=== PATIENT | female | born 1955 | race Caucasian/White ===

== ENCOUNTER 2016-10-29 11:54 | Emergency (ER) | payer OTHER ==
[~2016-10-29] VITALS: Ht 172.7 cm; Wt 87.5 kg
[~2016-10-29 11:54] MED LIST: ACYC5CRE2 TP; ALPR1TAB2 PO; ASPI325T8 PO; ATOR20TA58 PO; CEFD300C PO; CHOL100013 PO; DESV100T PO; DESV50TA PO; DICY10CA53 PO; ESTR1PAT27 TD; FLUT1DIS5 IH; FURO-68 PO; GABA600T2 PO; HYDR1TAB26 PO; LEVO137T3 PO; MAGN400T3 PO; MUPI15CR TP; OMEG500C3 PO; OMEP20TA8 PO; OXYC-323 PO; OXYC5TAB88 PO; POTA20PA PO; PROAIR HFA8.5 GM IH; SIMV20TA3 PO; SOLI5TAB2 PO; TIZA4TAB PO; VITA400C11 PO
[2016-10-29 12:35] LABS: BASO # 0.1 x10^3/uL (0.0-0.2); BASO % 1 % (0-3); EOS % 0 % (0-3); HEMATOCRIT 34.1 % (36.0-47.0); LYMPH # 1.7 x10^3/uL (1.0-4.8); LYMPH % 8 % (24-48); MEAN CORPUSCULAR HEMOGLOBIN 27 pg (25-35); MEAN CORPUSCULAR HGB CONC 32 g/dL (31-37); MEAN CORPUSCULAR VOLUME 83 fL (79-100); MONO % 4 % (0-9); NEUT % 87 % (31-73); PLATELET COUNT 430 x10^3/uL (140-400); RED BLOOD COUNT 4.08 x10^6/uL (3.50-5.40); RED CELL DISTRIBUTION WIDTH 14.4 % (11.5-14.5); WHITE BLOOD COUNT 21.7 x10^3/uL (4.0-11.0)
[2016-10-29] MEDS ORDERED: KETOROLAC TROMETHAMINE 30 MG/ML INJ. IV ONE (12:45)
[2016-10-29] MEDS ORDERED: oxyCODONE/APAP 5/325 1 TAB TABLET PO ONE (12:45)
[2016-10-29] MEDS ORDERED: ALBUTEROL SULFATE 2.5 MG/3 ML NEBU. NEB ONE (12:45)
[2016-10-29] MEDS ORDERED: IPRATRPIUM/ALBUTEROL 0.5/2.5MG 3 ML NEBU. NEB ONE (12:45)
[2016-10-29] MEDS ORDERED: PROMETHAZINE 25 MG in IV NORMAL SALINE 50ML 50 ML IV ONE (12:45)
[2016-10-29 12:47] LABS: CALCIUM 8.5 mg/dL (8.5-10.1); CREATININE 0.8 mg/dL (0.6-1.0); GFR 73.4; POTASSIUM 4.5 mmol/L (3.5-5.1)
--- NOTE | 2016-10-29 12:53 | PHYS DOC ---
Past Medical History Past Medical History: Anxiety, Bronchitis, CHF, COPD, Depression, Hypertension , [place], Renal Disease, Stroke, Other Additional Past Medical Histor: "C.diffRotted colon out.I have an ileostomy. "Indwelling smith since 08-25-14 Past Surgical History: Appendectomy, Cholecystectomy, Hysterectomy, Knee Replacement, Other Additional Past Surgical Histo: Back surgery, Shouldr surgery, Cardiac stent, COLON\\RECTUM REMVD Alcohol Use: None Drug Use: None Adult General Chief Complaint Chief Complaint: FLU SYMPTOM HPI HPI Patient is a 61 year old female presenting to the emergency department for evaluation of multiple complaints including cough cold congestion fevers chills shortness of breath chest tightness inability to ambulate myalgias and arthralgias. Patient says that she has greenish productive cough and says that this has been going on for approximately one week and she was placed on prednisone and amoxicillin by her primary care provider last week. She is feeling worse and that she cannot breathe. She is in poor health overall as she has chronic pain along with CHF COPD him on her chronic conditions. She is nontoxic-appearing and in no obvious distress with normal vital signs. Review of Systems Review of Systems Constitutional: + fever, chills [] Eyes: Denies change in visual acuity, redness, or eye pain [] HENT: + nasal congestion or sore throat [] Respiratory: + cough, shortness of breath [] Cardiovascular: + CP GI: Denies abdominal pain, nausea, vomiting, bloody stools or diarrhea [] : Denies dysuria or hematuria [] Musculoskeletal: Diffuse myalgias and arthralgias Integument: Denies rash or skin lesions [] Neurologic: + headache. No focal weakness or sensory changes [] Current Medications Current Medications Current Medications Medications (Trade) Dose Ordered Sig/Joel Start Time Stop Time Status Last Admin Dose Admin Albuterol Sulfate (Ventolin Neb Soln) 5 mg 1X ONCE 10/29/16 12:45 10/29/16 12:46 DC 10/29/16 12:56 5 MG Albuterol/ Ipratropium (Duoneb) 3 ml 1X ONCE 10/29/16 12:45 10/29/16 12:46 DC 10/29/16 12:56 3 ML Hydromorphone HCl (Dilaudid) 1 mg 1X ONCE 10/29/16 13:45 10/29/16 13:46 DC 10/29/16 13:54 1 MG Ketorolac Tromethamine (Toradol) 15 mg 1X ONCE 10/29/16 12:45 10/29/16 12:46 DC 10/29/16 12:43 15 MG Oxycodone/ Acetaminophen (Percocet 5/325) 2 tab 1X ONCE 10/29/16 12:45 10/29/16 12:46 DC 10/29/16 12:42 2 TAB Promethazine HCl 25 mg/Sodium Chloride 51 ml @ 101 mls/hr 1X ONCE 10/29/16 12:45 10/29/16 13:15 DC 10/29/16 13:29 101 MLS/HR Sodium Chloride 500 ml @ 500 mls/hr 1X ONCE 10/29/16 13:30 10/29/16 14:29 10/29/16 13:34 500 MLS/HR Allergies Allergies Allergies Coded Allergies Type Severity Reaction Last Updated Verified phenytoin sodium Allergy Intermediate 12/31/14 Yes phenytoin sodium extended Allergy Intermediate 12/31/14 Yes doxycycline Adverse Reaction Intermediate GI UPSET 12/31/14 Yes pregabalin Adverse Reaction Intermediate NIGHTMARES 12/31/14 Yes Physical Exam Physical Exam Constitutional: Well developed, well nourished, no acute distress, non-toxic appearance. [] HENT: Normocephalic, atraumatic, bilateral external ears normal, oropharynx moist, no oral exudates, nose normal. [] Eyes: PERRLA, EOMI, conjunctiva normal, no discharge. [] Neck: Normal range of motion, no tenderness, supple, no stridor. [] Cardiovascular:Heart rate regular rhythm, no murmur [] Lungs & Thorax: Bilateral breath sounds diminished with rales and wheezes in all lung rodriguez. Abdomen: Bowel sounds normal, soft, no tenderness, no masses, no pulsatile masses. [] Skin: Warm, dry, no erythema, no rash. [] Back: No tenderness, no CVA tenderness. [] Extremities: No tenderness, no cyanosis, no clubbing, ROM intact, no edema. [] Neurologic: Alert and oriented X 3, normal motor function, normal sensory function, no focal deficits noted. [] Current Patient Data Vital Signs Vital Signs Date Time Temp Pulse Resp B/P (MAP) Pulse Ox O2 Delivery O2 Flow Rate FiO2 10/29/16 13:54 22 5 10/29/16 12:58 Room Air 10/29/16 12:53 90 136/74 (94) 10/29/16 11:54 98.4 98.4 Lab Values Laboratory Tests Test 10/29/16 12:22 White Blood Count 21.7 x10^3/uL (4.0-11.0) H Red Blood Count 4.08 x10^6/uL (3.50-5.40) Hemoglobin 11.0 g/dL (12.0-15.5) L Hematocrit 34.1 % (36.0-47.0) L Mean Corpuscular Volume 83 fL (79-100) Mean Corpuscular Hemoglobin 27 pg (25-35) Mean Corpuscular Hemoglobin Concent 32 g/dL (31-37) Red Cell Distribution Width 14.4 % (11.5-14.5) Platelet Count 430 x10^3/uL (140-400) H Neutrophils (%) (Auto) 87 % (31-73) H Lymphocytes (%) (Auto) 8 % (24-48) L Monocytes (%) (Auto) 4 % (0-9) Eosinophils (%) (Auto) 0 % (0-3) Basophils (%) (Auto) 1 % (0-3) Neutrophils # (Auto) 18.9 x10^3uL (1.8-7.7) H Lymphocytes # (Auto) 1.7 x10^3/uL (1.0-4.8) Monocytes # (Auto) 1.0 x10^3/uL (0.0-1.1) Eosinophils # (Auto) 0.0 x10^3/uL (0.0-0.7) Basophils # (Auto) 0.1 x10^3/uL (0.0-0.2) Segmented Neutrophils % 89 % (35-66) H Band Neutrophils % 2 % (0-9) Lymphocytes % 5 % (24-48) L Monocytes % 4 % (0-10) Platelet Estimate Adequate (ADEQUATE) Sodium Level 132 mmol/L (136-145) L Potassium Level 4.5 mmol/L (3.5-5.1) Chloride Level 96 mmol/L (98-107) L Carbon Dioxide Level 25 mmol/L (21-32) Anion Gap 11 (6-14) Blood Urea Nitrogen 9 mg/dL (7-20) Creatinine 0.8 mg/dL (0.6-1.0) Estimated GFR (Cockcroft-Gault) 73.4 BUN/Creatinine Ratio 11 (6-20) Glucose Level 128 mg/dL (70-99) H Calcium Level 8.5 mg/dL (8.5-10.1) Magnesium Level 1.9 mg/dL (1.8-2.4) Total Bilirubin 0.1 mg/dL (0.2-1.0) L Aspartate Amino Transferase (AST) 8 U/L (15-37) L Alanine Aminotransferase (ALT) 19 U/L (14-59) Alkaline Phosphatase 153 U/L (46-116) H Creatine Kinase 49 U/L (26-192) Troponin I Quantitative < 0.017 ng/mL (0.000-0.055) PV-Ctq-Y-Type Natriuretic Peptide 259 pg/mL (0-124) H Total Protein 7.7 g/dL (6.4-8.2) Albumin 3.8 g/dL (3.4-5.0) Albumin/Globulin Ratio 1.0 (1.0-1.7) Lipase 229 U/L (73-393) Laboratory Tests 10/29/16 12:22 Laboratory Tests 10/29/16 12:22 EKG EKG Sinus rhythm at 90 bpm with leftward axis no obvious ST elevation or depression and normal T waves. Radiology/Procedures Radiology/Procedures Chest radiograph 05/29/2016 at 1255 hours Indication: Cough and trouble breathing Comparison: Chest radiograph 11/17/2014 Technique: Single portable frontal view of the chest is provided. Findings: Cardiomediastinal silhouette is within normal limits. No pleural effusions, pulmonary vascular congestion or pneumothorax. The lungs are clear. Rotator cuff tacks are noted in the left shoulder. Impression: No acute cardiopulmonary process. DICTATED and SIGNED BY: MARIA D GONZALEZ MD DATE: 10/29/16 1424 Course & Med Decision Making Course & Med Decision Making Patient seems to have a viral syndrome with diffuse myalgias arthralgias greenish productive cough fevers chills. We'll treat symptoms check labs and reassess. Patient's workup is rather unremarkable except she has leukocytosis likely from the steroid she has been on for the past week. Otherwise her workup is normal. I gave her a breathing treatment and her lungs improved and she continued to have a normal O2 sat in the mid 90s. She was asking for something stronger for pain so I gave her Dilaudid and she has for second dose so seems that her issues more pain control at this time. I spoke to her primary care provider Dr. Leon about patient's presentation vital signs and workup and she stated that patient meets no inpatient criteria and recommended discharge with a change in the steroid taper and can try a different antibiotic. Patient aware and agreeable with plan for discharge and verbalized understanding of the need for short-term follow-up and strict ER return precautions discussed including worsening pain fevers vomiting or other general concerns. Dragon Disclaimer Dragon Disclaimer This electronic medical record was generated, in whole or in part, using a voice recognition dictation system. Departure Departure Impression: Primary Impression: Bronchitis Additional Impression: COPD with exacerbation Disposition: HOME, SELF-CARE Condition: GOOD Referrals: NICOLAS LEON MD (PCP) Patient Instructions: Acute Bronchitis Additional Instructions: TRY TAKING IBUPROFEN OTC FOR YOUR BODY ACHES. OTC NASONEX WOULD HELP YOUR SINUS CONGESTION AND COUGH. STOP YOUR PREDNISONE AND AMOXICILLIN AND TAKE THE MEDICATIONS I PRESCRIBE. THANK YOU! Scripts Prednisone (PREDNISONE) 10 Mg Tablet 10 MG PO DAILY, #36 TAB TAKE 60MG FOR 3 DAYS THEN 40MG FOR 3 DAYS THEN 20MG FOR 3 DAYS Prov: LORA ANTONIO DO 10/29/16 Azithromycin (ZITHROMAX PACKET) 1 Gm Packet 1 PACKET PO ONCE, #1 PACKET Prov: LORA ANTONIO DO 10/29/16 Problem Qualifiers LORA ANTONIO DO Oct 29, 2016 12:53
[2016-10-29 12:54] LABS: ALBUMIN 3.8 g/dL (3.4-5.0); MAGNESIUM 1.9 mg/dL (1.8-2.4); TOTAL BILIRUBIN 0.1 mg/dL (0.2-1.0); TOTAL PROTEIN 7.7 g/dL (6.4-8.2)
--- NOTE | 2016-10-29 12:54 | EKG ---
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
--- NOTE | 2016-10-29 13:05 | RAD ---
Chest radiograph 05/29/2016 at 1255 hours Indication: Cough and trouble breathing Comparison: Chest radiograph 11/17/2014 Technique: Single portable frontal view of the chest is provided. Findings: Cardiomediastinal silhouette is within normal limits. No pleural effusions, pulmonary vascular congestion or pneumothorax. The lungs are clear. Rotator cuff tacks are noted in the left shoulder. Impression: No acute cardiopulmonary process.
[2016-10-29] MEDS ORDERED: IV NORMAL SALINE 500ML BAG 500 ML IV ONE (13:30)
[2016-10-29] MEDS ORDERED: HYDROmorphone 2 MG/ML VIAL IV ONE ×2 (13:45→14:15)
[2016-10-29 13:55] VITALS: BP 162/99
[2016-10-29 13:56] LABS: PLT ESTIMATE ADEQUATE (ADEQUATE)
[2016-10-29 14:06] LABS: BILIRUBIN,URINE NEGATIVE (NEG); GLUCOSE,URINE NEGATIVE (NEG); NITRITE,URINE NEGATIVE (NEG); PROTEIN,URINE NEGATIVE (NEG-TRACE); UROBILINOGEN,URINE 0.2 mg/dL (0.2 mg/dL)
[2016-10-29 14:16] LABS: BACTERIA,URINE FEW /HPF (0-FEW); RBC,URINE RARE /HPF (0-2); SQUAMOUS EPITHELIAL CELL,UR OCC /LPF; WBC,URINE OCC /HPF (0-4)
[2016-10-29] MEDS ORDERED: AZIT1PAC PO (14:17)
[2016-10-29] MEDS ORDERED: PRED-220 PO (14:17)
== END 2016-10-29 14:41 | disposition home or self-care (01) ==
LOC: ER 11:54
DX: J44.1 Chronic obstructive pulmonary disease with (acute) exacerbation (principal); I13.0 Hypertensive heart and chronic kidney disease with heart failure and stage 1 through stage 4 chronic kidney disease, or unspecified chronic kidney disease; N18.9 Chronic kidney disease, unspecified; I50.9 Heart failure, unspecified; I25.2 Old myocardial infarction; Z86.73 Personal history of transient ischemic attack (TIA), and cerebral infarction without residual deficits; Z90.710 Acquired absence of both cervix and uterus; Z90.49 Acquired absence of other specified parts of digestive tract; Z88.1 Allergy status to other antibiotic agents; Z88.8 Allergy status to other drugs, medicaments and biological substances
CPT/HCPCS: 36415; 71010; 80053; 81001; 82550; 83690; 83735; 83880; 84484; 85007; 85025; 87040; 93005; 94250; 94640; 96365; 96375; 99285; J1170; J1885; J2550; J7040; J7613; J7620

== ENCOUNTER 2016-11-26 17:32 | Inpatient (IN) | payer OTHER ==
[~2016-11-26] VITALS: Ht 175.3 cm; Wt 103.4 kg
[~2016-11-26 17:32] MED LIST changes: +AZIT1PAC PO; +PRED-220 PO
[2016-11-26] MEDS ORDERED: IV NORMAL SALINE 1000ML BAG 1,000 ML IV SCH (18:00)
[2016-11-26] MEDS ORDERED: ONDANSETRON PF 4 MG/2 ML VIAL. IV ONE (18:00)
--- NOTE | 2016-11-26 18:01 | ED.ADGEN ---
Past Medical History Past Medical History: Anxiety, Bronchitis, CHF, COPD, Depression, Hypertension , [place], Renal Disease, Stroke, Other Additional Past Medical Histor: "C.diffRotted colon out.I have an ileostomy. "Indwelling smith since 08-25-14 Past Surgical History: Appendectomy, Cholecystectomy, Hysterectomy, Knee Replacement, Other Additional Past Surgical Histo: Back surgery, Shouldr surgery, Cardiac stent, COLON\\RECTUM REMVD Alcohol Use: None Drug Use: None Adult General Chief Complaint Chief Complaint: ABDOMINAL PAIN HPI HPI Patient is a 61 year old woman, history of C. difficile colitis, with bowel perforation that required placement of an ostomy, CAD status post [place], CHF, hypertension, who presents to the emergency department with a complaint of feculent emesis. Patient states that she's had no drainage from her ostomy today , and has been having continuous copious feculent emesis since early afternoon. She states that she spoke to her surgeon office, Dr. Robertson, was told to come to the ED for evaluation. No blood in her emesis. She states that she had a similar episode previously due to obstruction. Patient is complaining of severe abdominal pain and bloating, of severe nausea, denies any chest pain or shortness breath, any fevers or chills, any injuries, any weakness emesis or tingling, any urinary complaints. Review of Systems Review of Systems Constitutional: Denies fever or chills. [] Eyes: Denies change in visual acuity. [] HENT: Denies nasal congestion or sore throat. [] Respiratory: Denies cough or shortness of breath. [] Cardiovascular: Denies chest pain or edema. [] GI: Severe abdominal pain and bloating with no ostomy output since last night, nausea and vomiting, of feculent material. : Denies dysuria. [] Musculoskeletal: Denies back pain or joint pain. [] Integument: Denies rash. [] Neurologic: Denies headache, focal weakness or sensory changes. [] Endocrine: Denies polyuria or polydipsia. [] Lymphatic: Denies swollen glands. [] Psychiatric: Denies depression or anxiety. [] Current Medications Current Medications Current Medications Medications (Trade) Dose Ordered Sig/Joel Start Time Stop Time Status Last Admin Dose Admin Fentanyl Citrate (Fentanyl 2ml Vial) 50 mcg PRN Q15MIN PRN 11/26/16 18:00 11/27/16 17:59 11/26/16 19:41 50 MCG Info (Do NOT chart on this entry -- for MONITORING) 1 each PRN DAILY PRN 11/26/16 18:15 11/28/16 18:14 Iohexol (Omnipaque 300 Mg/ml) 60 ml 1X ONCE 11/26/16 18:15 11/26/16 18:16 DC 11/26/16 18:39 75 ML Ondansetron HCl (Zofran) 4 mg 1X ONCE 11/26/16 18:00 11/26/16 18:01 DC 11/26/16 18:19 4 MG Sodium Chloride 1,000 ml @ 1,000 mls/hr Q1H 11/26/16 18:00 11/26/16 18:59 DC 11/26/16 18:20 1,000 MLS/HR Allergies Allergies Allergies Coded Allergies Type Severity Reaction Last Updated Verified phenytoin sodium Allergy Intermediate 12/31/14 Yes phenytoin sodium extended Allergy Intermediate 12/31/14 Yes doxycycline Adverse Reaction Intermediate GI UPSET 12/31/14 Yes pregabalin Adverse Reaction Intermediate NIGHTMARES 12/31/14 Yes Physical Exam Physical Exam Constitutional: Well developed, well nourished, patient tearful, appears very uncomfortable, pale in appearance. HENT: Normocephalic, atraumatic, bilateral external ears normal, oropharynx moist, no oral exudates, nose normal. [] Eyes: PERRLA, EOMI, conjunctiva normal, no discharge. [] Neck: Normal range of motion, no tenderness, supple, no stridor. [] Cardiovascular:Heart rate regular rhythm, no murmur, S1, S2, rubs or gallops. [] Lungs & Thorax: Bilateral breath sounds clear to auscultation, no wheezing, rhonchi, rales. [] Abdomen: Absent bowel sounds, patient with ostomy in place with no drainage in bag, abdomen is soft, distended, tender throughout, voluntary guarding noted, no rigidity, no rebound, no masses palpated. Skin: Warm, dry, no erythema, no rash. [] Back: No tenderness, no CVA tenderness. [] Extremities: No tenderness, no cyanosis, no clubbing, ROM intact, no edema. [ Negative Homans sign.] Neurologic: Alert and oriented X 3, normal motor function, normal sensory function, no focal deficits noted. [] Psychologic: Affect normal, judgement normal, mood normal. [] Current Patient Data Vital Signs Vital Signs Date Time Temp Pulse Resp B/P (MAP) Pulse Ox O2 Delivery O2 Flow Rate FiO2 11/26/16 18:17 76 135/80 (98) 95 Room Air 11/26/16 17:45 98.1 18 98.1 Lab Values Laboratory Tests Test 11/26/16 17:55 11/26/16 18:00 White Blood Count 7.1 x10^3/uL (4.0-11.0) Red Blood Count 4.45 x10^6/uL (3.50-5.40) Hemoglobin 12.4 g/dL (12.0-15.5) Hematocrit 37.3 % (36.0-47.0) Mean Corpuscular Volume 84 fL (79-100) Mean Corpuscular Hemoglobin 28 pg (25-35) Mean Corpuscular Hemoglobin Concent 33 g/dL (31-37) Red Cell Distribution Width 15.0 % (11.5-14.5) H Platelet Count 483 x10^3/uL (140-400) H Neutrophils (%) (Auto) 45 % (31-73) Lymphocytes (%) (Auto) 44 % (24-48) Monocytes (%) (Auto) 8 % (0-9) Eosinophils (%) (Auto) 2 % (0-3) Basophils (%) (Auto) 1 % (0-3) Neutrophils # (Auto) 3.2 x10^3uL (1.8-7.7) Lymphocytes # (Auto) 3.1 x10^3/uL (1.0-4.8) Monocytes # (Auto) 0.5 x10^3/uL (0.0-1.1) Eosinophils # (Auto) 0.2 x10^3/uL (0.0-0.7) Basophils # (Auto) 0.1 x10^3/uL (0.0-0.2) Sodium Level 133 mmol/L (136-145) L Potassium Level 3.9 mmol/L (3.5-5.1) Chloride Level 94 mmol/L (98-107) L Carbon Dioxide Level 29 mmol/L (21-32) Anion Gap 10 (6-14) Blood Urea Nitrogen 10 mg/dL (7-20) Creatinine 0.8 mg/dL (0.6-1.0) Estimated GFR (Cockcroft-Gault) 73.4 BUN/Creatinine Ratio 13 (6-20) Glucose Level 119 mg/dL (70-99) H Lactic Acid Level 1.8 mmol/L (0.4-2.0) Calcium Level 9.7 mg/dL (8.5-10.1) Total Bilirubin 0.1 mg/dL (0.2-1.0) L Aspartate Amino Transferase (AST) 19 U/L (15-37) Alanine Aminotransferase (ALT) 22 U/L (14-59) Alkaline Phosphatase 191 U/L (46-116) H Total Protein 8.2 g/dL (6.4-8.2) Albumin 4.0 g/dL (3.4-5.0) Albumin/Globulin Ratio 1.0 (1.0-1.7) Lipase 196 U/L (73-393) Urine Collection Type Unknown Urine Color Yellow Urine Clarity Clear Urine pH 6.0 Urine Specific [place] 1.010 Urine Protein Negative mg/dL (NEG-TRACE) Urine Glucose (UA) Negative mg/dL (NEG) Urine Ketones (Stick) Negative mg/dL (NEG) Urine Blood Moderate (NEG) Urine Nitrite Negative (NEG) Urine Bilirubin Negative (NEG) Urine Urobilinogen Dipstick 0.2 mg/dL (0.2 mg/dL) Urine Leukocyte Esterase Negative (NEG) Urine RBC 1-2 /HPF (0-2) Urine WBC Occ /HPF (0-4) Urine Squamous Epithelial Cells Few /LPF Urine Bacteria Few /HPF (0-FEW) Laboratory Tests 11/26/16 17:55 Laboratory Tests 11/26/16 17:55 EKG EKG EC: Sinus rhythm, heart rate 76 beats/minute, upright axis, QTC of 42, MI 124, QRS of 88, contour normality is noted in the anterior septal leads, but no ST elevation or depression, abnormal ECG, does not meet STEMI criteria. As interpreted by me. Radiology/Procedures Radiology/Procedures [][facility] [address] [place] [address] IMAGING REPORT Signed PATIENT: BELLA ROACH ACCOUNT: [id number] : 1955 LOCATION: ER AGE: 61 SEX: F EXAM STATUS: REG ER ORD. PHYSICIAN: RAEGAN MENG DO REASON: abdominal pain with feculent emesis/No ostomy drainage PROCEDURE: CT ABD PELV W/ IV CONTRST ONLY CT scan of the abdomen and pelvis with contrast 11/26/2016 CLINICAL HISTORY: Vomiting feculent material with abdominal pain. TECHNIQUE: After the intravenous administration of 75 cc of Omnipaque 300, contiguous, 5 mm axial sections were obtained through the abdomen and pelvis. One or more of the following individualized dose reduction techniques were utilized for this study: 1. Automated exposure control. 2. Adjustment of the mA and/or kV according to patient size. 3. Use of iterative reconstruction technique. FINDINGS: Comparison study is dated 10/09/2014. Images through the lung bases demonstrate minimal dependent subsegmental atelectasis bilaterally. The liver, spleen, pancreas, adrenal glands and kidneys are within normal limits. Moderate atherosclerotic calcification of the abdominal aorta and its branches is noted. The abdominal aorta tapers normally. No free fluid or free air is seen within the abdomen. There is no evidence of bowel obstruction. The patient appears to be post colectomy. An ostomy is seen within the left mid abdomen. There is an associated parastomal ventral hernia which contains fat and nondilated small bowel loops. It measures 8.5 cm in size. A midline ventral hernia is seen more inferiorly in the mid pelvis which contains nondilated small bowel loops. This measures 3.4 cm in size. Images through the pelvis demonstrate the urinary bladder distended with urine. The patient is post left KALEIGH. There appears to be a moderate sized cystocele. No free fluid is noted. Postsurgical changes are again seen involving the lower lumbar spine. IMPRESSION: No acute abnormality is seen. Electronically signed by: Brent Dumont MD (11/26/2016 7:03 PM) [facility] DICTATED and SIGNED BY: BRENT DUMONT MD DATE: 11/26/16 7910 CC: RAEGAN MENG DO; NARDA LEON MD ~ Course & Med Decision Making Course & Med Decision Making Pertinent Labs and Imaging studies reviewed. (See chart for details) Patient received antiemetics and pain medication in the ED, agreeable to receiving repeat imaging and laboratory studies. CT does not reveal any evidence of acute obstruction or other acute abnormality. However patient states to complain of significant discomfort, and stated there is no Papi bag. I did discuss these findings and examination with Dr. Robertson, the patient's surgeon, who recommended the patient be admitted to the hospital for continued evaluation, nothing by mouth status, and symptom management with IV fluids. Requested that a GI consult also be obtained. I did discuss this with patient, she is in agreement with this plan. Patient received additional dose of medication for pain in the ED at this time. I did discuss findings as above with Dr. Leon, the patient's primary care provider, patient was accepted to her service as a full admission to the medical telemetry floor, with continued symptoms management and monitoring, and GI and surgery consultations as stated. Patient remained stable on the monitor, awaiting transfer to the floor. Bridge orders entered per discussion. Dragon Disclaimer Dragon Disclaimer This electronic medical record was generated, in whole or in part, using a voice recognition dictation system. Departure Impression: Primary Impression: Abdominal pain Additional Impression: N&V (nausea and vomiting) Disposition: ADMITTED INPATIENT Admitting Physician: Narda Leon Condition: IMPROVED Problem Qualifiers RAEGAN MENG DO Nov 26, 2016 18:01
[2016-11-26 18:11] LABS: BILIRUBIN,URINE NEGATIVE (NEG); GLUCOSE,URINE NEGATIVE (NEG); NITRITE,URINE NEGATIVE (NEG); PROTEIN,URINE NEGATIVE (NEG-TRACE); UROBILINOGEN,URINE 0.2 mg/dL (0.2 mg/dL)
[2016-11-26 18:11] LABS: BASO # 0.1 x10^3/uL (0.0-0.2); BASO % 1 % (0-3); EOS % 2 % (0-3); HEMATOCRIT 37.3 % (36.0-47.0); HEMOGLOBIN 12.4 g/dL (12.0-15.5); LYMPH # 3.1 x10^3/uL (1.0-4.8); LYMPH % 44 % (24-48); MEAN CORPUSCULAR HEMOGLOBIN 28 pg (25-35); MEAN CORPUSCULAR HGB CONC 33 g/dL (31-37); MEAN CORPUSCULAR VOLUME 84 fL (79-100); MONO % 8 % (0-9); NEUT % 45 % (31-73); PLATELET COUNT 483 x10^3/uL (140-400); RED BLOOD COUNT 4.45 x10^6/uL (3.50-5.40); WHITE BLOOD COUNT 7.1 x10^3/uL (4.0-11.0)
[2016-11-26] MEDS ORDERED: CONTRAST GIVEN MC PRN (18:15)
[2016-11-26] MEDS ORDERED: IOHEXOL 300 MG/ML 75 ML VIAL IV ONE (18:15)
[2016-11-26] MEDS: fentaNYL PF VIAL 100 MCG/2 ML VIAL IV PRN ×4 (18:19→20:40)
[2016-11-26 18:20] LABS: BACTERIA,URINE FEW /HPF (0-FEW); SQUAMOUS EPITHELIAL CELL,UR FEW /LPF; WBC,URINE OCC /HPF (0-4)
[2016-11-26 18:26] LABS: CALCIUM 9.7 mg/dL (8.5-10.1); CREATININE 0.8 mg/dL (0.6-1.0); GFR 73.4; POTASSIUM 3.9 mmol/L (3.5-5.1)
[2016-11-26 18:32] LABS: TOTAL BILIRUBIN 0.1 mg/dL (0.2-1.0); TOTAL PROTEIN 8.2 g/dL (6.4-8.2)
--- NOTE | 2016-11-26 18:56 | EKG ---
[facility] [address] [place] [address] Test Date: 2016-11-26 Test Time: 18:12:23 Pat Name: BELLA ROACH Department: Room: Gender: F Radiology Rn: : 1955 Requested By: RAEGAN MENG Order Number: [id number] Reading MD: Joshua Allen Measurements Intervals [place] Rate: 76 P: -47 MO: 124 QRS: 75 QRSD: 88 T: 38 QT: 398 QTc: 452 Interpretive Statements SINUS RHYTHM Electronically Signed On 12-02-2016 10:16:40 CDT by Joshua Allen
--- NOTE | 2016-11-26 19:07 | RAD ---
CT scan of the abdomen and pelvis with contrast 11/26/2016 CLINICAL HISTORY: Vomiting feculent material with abdominal pain. TECHNIQUE: After the intravenous administration of 75 cc of Omnipaque 300, contiguous, 5 mm axial sections were obtained through the abdomen and pelvis. One or more of the following individualized dose reduction techniques were utilized for this study: 1. Automated exposure control. 2. Adjustment of the mA and/or kV according to patient size. 3. Use of iterative reconstruction technique. FINDINGS: Comparison study is dated 10/09/2014. Images through the lung bases demonstrate minimal dependent subsegmental atelectasis bilaterally. The liver, spleen, pancreas, adrenal glands and kidneys are within normal limits. Moderate atherosclerotic calcification of the abdominal aorta and its branches is noted. The abdominal aorta tapers normally. No free fluid or free air is seen within the abdomen. There is no evidence of bowel obstruction. The patient appears to be post colectomy. An ostomy is seen within the left mid abdomen. There is an associated parastomal ventral hernia which contains fat and nondilated small bowel loops. It measures 8.5 cm in size. A midline ventral hernia is seen more inferiorly in the mid pelvis which contains nondilated small bowel loops. This measures 3.4 cm in size. Images through the pelvis demonstrate the urinary bladder distended with urine. The patient is post left KALEIGH. There appears to be a moderate sized cystocele. No free fluid is noted. Postsurgical changes are again seen involving the lower lumbar spine. IMPRESSION: No acute abnormality is seen. Electronically signed by: Brent Dumont MD (11/26/2016 7:03 PM) [facility]
[2016-11-26] MEDS ORDERED: ACETAMINOPHEN 325 MG TABLET. PO PRN (19:45)
[2016-11-26] MEDS ORDERED: ONDANSETRON PF 4 MG/2 ML VIAL. IV PRN (19:45)
[2016-11-26 20:30] VITALS: BP 134/70
[2016-11-26] MEDS: IV NORMAL SALINE 1000ML BAG 1,000 ML IV SCH (20:40)
[2016-11-26] MEDS ORDERED: VARE1TAB21 PO (20:54)
[2016-11-26] MEDS ORDERED: tiZANidine 4 MG TABLET. PO ONE (21:45)
[2016-11-26] MEDS ORDERED: VARENICLINE 0.5 MG TABLET. PO ONE (21:45)
[2016-11-26] MEDS ORDERED: ALPRAZolam 1 MG TABLET PO ONE (21:45)
[2016-11-26] MEDS ORDERED: ATORVASTATIN CALCIUM 40 MG TABLET. PO ONE (21:45)
[2016-11-26] MEDS ORDERED: GABAPENTIN 300 MG CAPSULE. PO ONE (21:45)
[2016-11-26] MEDS ORDERED: POTASSIUM CHLORIDE 20 MEQ TABLET.ER. PO ONE (21:45)
[2016-11-26 22:30] VITALS: BP 113/63
[2016-11-27] VITALS (7 sets, daily range): BP systolic 90–133; BP diastolic 56–81
[2016-11-27] MEDS: fentaNYL PF VIAL 100 MCG/2 ML VIAL IV PRN ×5 (02:25→23:13)
[2016-11-27 04:29] LABS: BASO # 0.1 x10^3/uL (0.0-0.2); BASO % 1 % (0-3); EOS % 2 % (0-3); HEMATOCRIT 32.7 % (36.0-47.0); HEMOGLOBIN 11.1 g/dL (12.0-15.5); LYMPH # 2.3 x10^3/uL (1.0-4.8); LYMPH % 45 % (24-48); MEAN CORPUSCULAR HEMOGLOBIN 29 pg (25-35); MEAN CORPUSCULAR HGB CONC 34 g/dL (31-37); MEAN CORPUSCULAR VOLUME 84 fL (79-100); MONO % 10 % (0-9); NEUT % 42 % (31-73); PLATELET COUNT 402 x10^3/uL (140-400); RED CELL DISTRIBUTION WIDTH 14.9 % (11.5-14.5); WHITE BLOOD COUNT 5.2 x10^3/uL (4.0-11.0)
[2016-11-27 04:45] LABS: CALCIUM 9.1 mg/dL (8.5-10.1); CREATININE 0.7 mg/dL (0.6-1.0); GFR 85.6; POTASSIUM 4.3 mmol/L (3.5-5.1)
[2016-11-27] MEDS: IV NORMAL SALINE 1000ML BAG 1,000 ML IV SCH ×2 (06:25→16:17)
--- NOTE | 2016-11-27 06:35 | ACF ---
Admission Forms Criteria ABDOMINAL PAIN Clinical Indications for Admission to Inpatient Care ( [place]/check or initial the applicable condition/criteria): Admission is indicated for ANY ONE of the following (1)(2)(3)(4)(5)(6): [ ]I. Surgery needed that cannot be performed on ambulatory basis [ ]II. Peritoneal signs present (eg, rebound tenderness, rigidity) [ ]III. Evaluation requires patient to not eat or drink for extended period ( eg, more than 24 hours). [X]IV. Inpatient admission required[B] rather than observation care (see Abdominal Pain: Observation Care guideline as appropriate) because of ANY ONE of the following(7)(8)(9): [ ] a) Hemodynamic instability [X]b) Severe pain requiring acute inpatient management [ ]c) Identification of etiology or finding that requires inpatient care (eg, aortic dissection, free air,bowel ischemia)(10) [ ]d) Absent bowel sounds with complete ileus (11) [ ]e) Signs of intestinal obstruction[C] [ ]f) Suspected toxic megacolon [ ]g) Severe electrolyte abnormalities requiring inpatient care [ ]h) High fever or infection requiring inpatient admission as indicated by ANY ONE of the following (12)(13): [ ]i) Appropriate outpatient or observation care antimicrobial treatment unavailable, not effective, or not feasible [ ]ii) Documented bacteremia [ ]iii) Temperature greater than 104.9 degrees F (40.5 degrees C) (oral) [ ]iv) Temperature greater than 103.1 degrees F (39.5 degrees C) ( oral) or less than 96.8 degrees F (36 degrees C) (rectal) that does not respond to all emergency treatment measures [ ]i) IV fluid required rather than oral rehydration to replace significant ongoing (eg, for greater than 24 hours) losses (greater than 3 L/m2 per day)(14)(15) [ ]j) Percutaneous or open drainage (eg, abscess, biliary tract) procedures [ ]k) Parenteral nutrition regimen that must be implemented on inpatient basis [ ]l) Other condition, treatment, or monitoring requiring inpatient admission Extended stay beyond goal length of stay may be needed for (1)(3)(4)(10)(16): [ ]a) Surgery (e.g., colectomy, revascularization procedure) [ ]b) Persistent abdominal pain with suspected intra-abdominal process [ ]c) Diagnosed condition requiring continued stay (e.g., pancreatitis, complicated diverticulitis) The original [facility] content created by [facility] has been revised. The portions of the content which have been revised are identified through the use of italic text, and [facility] has neither reviewed nor approved the modified material.All other unmodified content is copyright [facility]. Please see references footnoted in the original [facility] edition 2014 Admission Criteria Met?: Yes SOREN PERDUE Nov 27, 2016 06:35
[2016-11-27] MEDS ORDERED: HYDR-2762 PO (08:38)
[2016-11-27] MEDS ORDERED: LEVO150T5 PO (08:38)
--- NOTE | 2016-11-27 08:50 | PDOC ---
PROGRESS NOTES Subjective Subjective Patient reports abdominal pain persists, especially around her stoma. No emesis overnight. Objective Objective Vital Signs Date Time Temp Pulse Resp B/P (MAP) Pulse Ox O2 Delivery O2 Flow Rate FiO2 11/27/16 08:39 16 95 Nasal Cannula 2.0 11/27/16 07:00 97.7 74 105/64 (78) 97.7 Physical Exam Abdomen: Normal bowel sounds, Soft, Other (moderate amount of soft/liquid stool in ostomy bag, moderate TTP adjacent to stoma) Heart: Regular rate Extremities: No edema General: Alert, Oriented X3, No acute distress Lungs: Other (few expiratory wheezes, otherwise CTA, no cough with exam) Assessment Assessment Problems Medical Problems: (1) Abdominal pain Status: Acute Plan Plan of Care 1. Abdominal pain with n/v - no further emesis since admission. CT did not show obstruction, infection or evidence of incarceration in her known ventral and peristomal hernias. Good output from her ileostomy overnight but patient reports pain persists. Continue NPO with IVF and anti-emetics as needed. Await Dr Robertson's and Dr Muro's input. Patient has po and IV pain meds available. 2. COPD - stable, continue nebs. Doing well with not smoking on Chantix, continue BID. 3. hypothyroidism - stable, continue her home dose of Levothyroxine. 4. chronic back pain - stable, continue po pain meds as needed. Comment Review of Relevant I have reviewed the following items chris (where applicable) has been applied. Labs Laboratory Tests Test 11/26/16 17:55 11/26/16 18:00 11/27/16 04:05 White Blood Count 7.1 x10^3/uL (4.0-11.0) 5.2 x10^3/uL (4.0-11.0) Red Blood Count 4.45 x10^6/uL (3.50-5.40) 3.90 x10^6/uL (3.50-5.40) Hemoglobin 12.4 g/dL (12.0-15.5) 11.1 g/dL (12.0-15.5) Hematocrit 37.3 % (36.0-47.0) 32.7 % (36.0-47.0) Mean Corpuscular Volume 84 fL (79-100) 84 fL (79-100) Mean Corpuscular Hemoglobin 28 pg (25-35) 29 pg (25-35) Mean Corpuscular Hemoglobin Concent 33 g/dL (31-37) 34 g/dL (31-37) Red Cell Distribution Width 15.0 % (11.5-14.5) 14.9 % (11.5-14.5) Platelet Count 483 x10^3/uL (140-400) 402 x10^3/uL (140-400) Neutrophils (%) (Auto) 45 % (31-73) 42 % (31-73) Lymphocytes (%) (Auto) 44 % (24-48) 45 % (24-48) Monocytes (%) (Auto) 8 % (0-9) 10 % (0-9) Eosinophils (%) (Auto) 2 % (0-3) 2 % (0-3) Basophils (%) (Auto) 1 % (0-3) 1 % (0-3) Neutrophils # (Auto) 3.2 x10^3uL (1.8-7.7) 2.2 x10^3uL (1.8-7.7) Lymphocytes # (Auto) 3.1 x10^3/uL (1.0-4.8) 2.3 x10^3/uL (1.0-4.8) Monocytes # (Auto) 0.5 x10^3/uL (0.0-1.1) 0.5 x10^3/uL (0.0-1.1) Eosinophils # (Auto) 0.2 x10^3/uL (0.0-0.7) 0.1 x10^3/uL (0.0-0.7) Basophils # (Auto) 0.1 x10^3/uL (0.0-0.2) 0.1 x10^3/uL (0.0-0.2) Sodium Level 133 mmol/L (136-145) 137 mmol/L (136-145) Potassium Level 3.9 mmol/L (3.5-5.1) 4.3 mmol/L (3.5-5.1) Chloride Level 94 mmol/L (98-107) 102 mmol/L (98-107) Carbon Dioxide Level 29 mmol/L (21-32) 27 mmol/L (21-32) Anion Gap 10 (6-14) 8 (6-14) Blood Urea Nitrogen 10 mg/dL (7-20) 8 mg/dL (7-20) Creatinine 0.8 mg/dL (0.6-1.0) 0.7 mg/dL (0.6-1.0) Estimated GFR (Cockcroft-Gault) 73.4 85.6 BUN/Creatinine Ratio 13 (6-20) Glucose Level 119 mg/dL (70-99) 102 mg/dL (70-99) Lactic Acid Level 1.8 mmol/L (0.4-2.0) Calcium Level 9.7 mg/dL (8.5-10.1) 9.1 mg/dL (8.5-10.1) Total Bilirubin 0.1 mg/dL (0.2-1.0) Aspartate Amino Transf (AST/SGOT) 19 U/L (15-37) Alanine Aminotransferase (ALT/SGPT) 22 U/L (14-59) Alkaline Phosphatase 191 U/L (46-116) Total Protein 8.2 g/dL (6.4-8.2) Albumin 4.0 g/dL (3.4-5.0) Albumin/Globulin Ratio 1.0 (1.0-1.7) Lipase 196 U/L (73-393) Urine Collection Type Unknown Urine Color Yellow Urine Clarity Clear Urine pH 6.0 Urine Specific [place] 1.010 Urine Protein Negative mg/dL (NEG-TRACE) Urine Glucose (UA) Negative mg/dL (NEG) Urine Ketones (Stick) Negative mg/dL (NEG) Urine Blood Moderate (NEG) Urine Nitrite Negative (NEG) Urine Bilirubin Negative (NEG) Urine Urobilinogen Dipstick 0.2 mg/dL (0.2 mg/dL) Urine Leukocyte Esterase Negative (NEG) Urine RBC 1-2 /HPF (0-2) Urine WBC Occ /HPF (0-4) Urine Squamous Epithelial Cells Few /LPF Urine Bacteria Few /HPF (0-FEW) Laboratory Tests Test 11/26/16 17:55 11/26/16 18:00 11/27/16 04:05 White Blood Count 7.1 x10^3/uL (4.0-11.0) 5.2 x10^3/uL (4.0-11.0) Red Blood Count 4.45 x10^6/uL (3.50-5.40) 3.90 x10^6/uL (3.50-5.40) Hemoglobin 12.4 g/dL (12.0-15.5) 11.1 g/dL (12.0-15.5) Hematocrit 37.3 % (36.0-47.0) 32.7 % (36.0-47.0) Mean Corpuscular Volume 84 fL (79-100) 84 fL (79-100) Mean Corpuscular Hemoglobin 28 pg (25-35) 29 pg (25-35) Mean Corpuscular Hemoglobin Concent 33 g/dL (31-37) 34 g/dL (31-37) Red Cell Distribution Width 15.0 % (11.5-14.5) 14.9 % (11.5-14.5) Platelet Count 483 x10^3/uL (140-400) 402 x10^3/uL (140-400) Neutrophils (%) (Auto) 45 % (31-73) 42 % (31-73) Lymphocytes (%) (Auto) 44 % (24-48) 45 % (24-48) Monocytes (%) (Auto) 8 % (0-9) 10 % (0-9) Eosinophils (%) (Auto) 2 % (0-3) 2 % (0-3) Basophils (%) (Auto) 1 % (0-3) 1 % (0-3) Neutrophils # (Auto) 3.2 x10^3uL (1.8-7.7) 2.2 x10^3uL (1.8-7.7) Lymphocytes # (Auto) 3.1 x10^3/uL (1.0-4.8) 2.3 x10^3/uL (1.0-4.8) Monocytes # (Auto) 0.5 x10^3/uL (0.0-1.1) 0.5 x10^3/uL (0.0-1.1) Eosinophils # (Auto) 0.2 x10^3/uL (0.0-0.7) 0.1 x10^3/uL (0.0-0.7) Basophils # (Auto) 0.1 x10^3/uL (0.0-0.2) 0.1 x10^3/uL (0.0-0.2) Sodium Level 133 mmol/L (136-145) 137 mmol/L (136-145) Potassium Level 3.9 mmol/L (3.5-5.1) 4.3 mmol/L (3.5-5.1) Chloride Level 94 mmol/L (98-107) 102 mmol/L (98-107) Carbon Dioxide Level 29 mmol/L (21-32) 27 mmol/L (21-32) Anion Gap 10 (6-14) 8 (6-14) Blood Urea Nitrogen 10 mg/dL (7-20) 8 mg/dL (7-20) Creatinine 0.8 mg/dL (0.6-1.0) 0.7 mg/dL (0.6-1.0) Estimated GFR (Cockcroft-Gault) 73.4 85.6 BUN/Creatinine Ratio 13 (6-20) Glucose Level 119 mg/dL (70-99) 102 mg/dL (70-99) Lactic Acid Level 1.8 mmol/L (0.4-2.0) Calcium Level 9.7 mg/dL (8.5-10.1) 9.1 mg/dL (8.5-10.1) Total Bilirubin 0.1 mg/dL (0.2-1.0) Aspartate Amino Transf (AST/SGOT) 19 U/L (15-37) Alanine Aminotransferase (ALT/SGPT) 22 U/L (14-59) Alkaline Phosphatase 191 U/L (46-116) Total Protein 8.2 g/dL (6.4-8.2) Albumin 4.0 g/dL (3.4-5.0) Albumin/Globulin Ratio 1.0 (1.0-1.7) Lipase 196 U/L (73-393) Urine Collection Type Unknown Urine Color Yellow Urine Clarity Clear Urine pH 6.0 Urine Specific [place] 1.010 Urine Protein Negative mg/dL (NEG-TRACE) Urine Glucose (UA) Negative mg/dL (NEG) Urine Ketones (Stick) Negative mg/dL (NEG) Urine Blood Moderate (NEG) Urine Nitrite Negative (NEG) Urine Bilirubin Negative (NEG) Urine Urobilinogen Dipstick 0.2 mg/dL (0.2 mg/dL) Urine Leukocyte Esterase Negative (NEG) Urine RBC 1-2 /HPF (0-2) Urine WBC Occ /HPF (0-4) Urine Squamous Epithelial Cells Few /LPF Urine Bacteria Few /HPF (0-FEW) Medications Current Medications Fentanyl Citrate (Fentanyl 2ml Vial) 50 mcg PRN Q15MIN PRN IV PAIN GREATER THAN 3/10 Last administered on 11/26/16 19:41; Start 11/26/16 at 18:00; Stop at 17:59 Sodium Chloride 1,000 ml @ 1,000 mls/hr Q1H IV Last administered on 11/26/16 18:20; Start 11/26/16 at 18:00; Stop 11/26/16 at 18:59; Status DC Ondansetron HCl (Zofran) 4 mg 1X ONCE IV Last administered on 11/26/16 18:19 ; Start 11/26/16 at 18:00; Stop 11/26/16 at 18:01; Status DC Iohexol (Omnipaque 300 Mg/ml) 60 ml 1X ONCE IV Last administered on 11/26/16 18:39; Start 11/26/16 at 18:15; Stop 11/26/16 at 18:16; Status DC Info (Do NOT chart on this entry -- for MONITORING) 1 each PRN DAILY PRN MC SEE COMMENTS; Start 11/26/16 at 18:15; Stop 11/28/16 at 18:14 Ondansetron HCl (Zofran) 4 mg PRN Q8HRS PRN IV NAUSEA/VOMITING; Start 11/26/16 at 19:45; Stop 11/27/16 at 19:44 Fentanyl Citrate (Fentanyl 2ml Vial) 50 mcg PRN Q1HR PRN IV PAIN Last administered on 11/27/16 08:39; Start 11/26/16 at 19:45; Stop 11/27/16 at 19:44 Sodium Chloride 1,000 ml @ 100 mls/hr Q10H IV Last administered on 11/27/16 06:25; Start 11/26/16 at 20:00; Stop 11/27/16 at 19:59 Acetaminophen (Tylenol) 650 mg PRN Q4HRS PRN PO FEVER; Start 11/26/16 at 19:45 ; Stop 11/27/16 at 19:44 Gabapentin (Neurontin) 600 mg 1X ONCE PO Last administered on 11/26/16 22:14 ; Start 11/26/16 at 21:45; Stop 11/26/16 at 21:46; Status DC Varenicline (Chantix) 1 mg 1X ONCE PO Last administered on 11/26/16 22:15; Start 11/26/16 at 21:45; Stop 11/26/16 at 21:46; Status DC Atorvastatin Calcium (Lipitor) 40 mg 1X ONCE PO Last administered on 22:15; Start 11/26/16 at 21:45; Stop 11/26/16 at 21:46; Status DC Alprazolam (Xanax) 1 mg 1X ONCE PO Last administered on 11/26/16 22:15; Start 11/26/16 at 21:45; Stop 11/26/16 at 21:46; Status DC Tizanidine HCl (Zanaflex) 4 mg 1X ONCE PO Last administered on 11/26/16 22:15 ; Start 11/26/16 at 21:45; Stop 11/26/16 at 21:46; Status DC Potassium Chloride (Klor-Con) 20 meq 1X ONCE PO Last administered on 22:14; Start 11/26/16 at 21:45; Stop 11/26/16 at 21:46; Status DC Active Scripts Active Hydrocodone-Apap 7.5-325 (Hydrocodone Bit/Acetaminophen) 1 Each Tablet 1 Tab PO PRN Q6HRS PRN 30 Days Levothyroxine Sodium 150 Mcg Tablet 1 Tab PO DAILY Bentyl (Dicyclomine Hcl) 10 Mg Capsule 20 Mg PO Q6HRS Reported Chantix (Varenicline Tartrate) 1 Mg Tablet 1 Mg PO BID Atorvastatin Calcium 20 Mg Tablet 40 Mg PO HS Vitamin D (Cholecalciferol (Vitamin D3)) 1,000 Unit Capsule 1,000 Unit PO DAILY Vitamin E 400 Unit Capsule 400 Unit PO DAILY Fish Oil ([place]-3 Fatty Acids) 500 Mg Capsule 500 Mg PO DAILY Magnesium Oxide 400 Mg Tablet 400 Mg PO QID Xanax (Alprazolam) 1 Mg Tablet 1 Mg PO QID Lasix (Furosemide) 40 Mg Tablet 40 Mg PO DAILY Aspirin 325 Mg Tablet 325 Mg PO DAILY Gabapentin 600 Mg Tablet 600 Mg PO TID Tizanidine Hcl 4 Mg Tablet 4 Mg PO QID Estradiol 1 Each Patch.tdwk 1 Each TD DAILY07 Omeprazole 20 Mg Tablet.dr 20 Mg PO DAILY07 Klor-Con (Potassium Chloride) 20 Meq Packet 20 Meq PO TID Proair Hfa Inhaler (Albuterol Sulfate) 8.5 Gm Hfa.aer.ad 8.5 Gm IH Q4HRS Advair 500-50 Diskus (Fluticasone/Salmeterol) 1 Each Disk.w.dev 1 Each IH BID Vitals/I & O Vital Sign - Last 24 Hours 11/26/16 11/26/16 11/26/16 11/26/16 17:45 18:17 20:15 20:30 Temp 98.1 98.7 98.1 98.7 Pulse 80 76 68 Resp 18 20 18 B/P (MAP) 168/87 (114) 135/80 (98) 134/70 (91) Pulse Ox 94 95 98 100 O2 Delivery Room Air Room Air Nasal Cannula O2 Flow Rate 2.0 2.0 11/26/16 11/26/16 11/26/16 11/26/16 20:40 21:10 22:02 22:30 Temp 97.9 97.9 Pulse 70 Resp 20 16 B/P (MAP) 113/63 (80) Pulse Ox 100 95 O2 Delivery Nasal Cannula Nasal Cannula O2 Flow Rate 2.0 2.0 2.0 11/27/16 11/27/16 11/27/16 11/27/16 02:25 02:46 03:00 06:52 Temp 97.7 97.7 Pulse 70 Resp 20 16 20 20 B/P (MAP) 113/63 (80) Pulse Ox 95 94 94 94 O2 Delivery Nasal Cannula Nasal Cannula Nasal Cannula O2 Flow Rate 2.0 2.0 2.0 2.0 11/27/16 11/27/16 07:00 08:39 Temp 97.7 97.7 Pulse 74 Resp 16 16 B/P (MAP) 105/64 (78) Pulse Ox 95 95 O2 Delivery Nasal Cannula Nasal Cannula O2 Flow Rate 2.0 2.0 NICOLAS HICKS MD Nov 27, 2016 08:50
[2016-11-27] MEDS ORDERED: NON FORMULARY ITEM (Fluticasone/Salmeterol (Advair 500-50 Diskus) 1 EACH) IH SCH (09:00)
--- NOTE | 2016-11-27 09:21 | HP ---
ADMIT DATE: 11/26/2016 CHIEF COMPLAINT: Abdominal pain with nausea and vomiting. HISTORY OF PRESENT ILLNESS: The patient is a 61-year-old female with an ileostomy who presented to the emergency room with the above complaint. She reported the onset of abdominal pain and emesis earlier on the day of admission. She stated that she had not had any drainage from her ostomy during the day and was having a significant amount of feculent emesis. Initial evaluation in the emergency room showed the patient to be moderately uncomfortable. A CT of the abdomen and pelvis did not show acute infection or evidence of obstruction, and the patient was admitted for further treatment. PAST MEDICAL HISTORY: Chronic urinary retention, chronic abdominal pain with IBS, COPD, coronary artery disease status post stent placement, hyperlipidemia, chronic depression and anxiety, hypothyroidism, chronic back pain, fibromyalgia, venous insufficiency. 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 ALLERGIES: THE PATIENT IS ALLERGIC OR INTOLERANT TO DOXYCYCLINE, PHENYTOIN AND LYRICA. HOME MEDICATIONS: Albuterol p.r.n., Xanax 1 mg q.i.d., aspirin 325 mg daily, atorvastatin 40 mg daily, vitamin D 1000 international units daily, Bentyl 20 mg q.6 hours p.r.n. abdominal pain, estradiol patch weekly, Advair 500/50 one puff b.i.d., Lasix 40 mg daily, gabapentin 600 mg t.i.d., [place] 7.5/325 p.r.n., levothyroxine 150 mcg daily, omeprazole 20 mg daily, potassium 20 mEq t.i.d., tizanidine 4 mg q.i.d., Chantix 1 mg b.i.d. FAMILY HISTORY: Noncontributory. SOCIAL HISTORY: The patient is . She is disabled. She has a long smoking history, but has not smoked cigarettes in about one month since taking Chantix. She does not drink alcohol to excess. REVIEW OF SYSTEMS: The patient has not had fever or chills. She denies chest pain or palpitations. She has a mild productive cough with clear sputum. She has been wearing her oxygen at night as usual, but does not feel short of air during the day. She feels she is doing well with not smoking on Chantix. Her lower extremity edema has been stable with her usual Lasix. Her chronic back pain has been fairly well controlled with the hydrocodone. Her chronic anxiety and depression have been stable. PHYSICAL EXAMINATION: GENERAL: The patient is alert and oriented times 3, resting comfortably in bed in no acute distress. HEENT: PERRL, EOMI, sclerae clear. Oropharynx: Mucous membranes moist. NECK: Supple, without lymphadenopathy. CHEST: Breath sounds mildly decreased throughout, mild expiratory wheezes are present. There is no cough during exam. CARDIOVASCULAR: Regular rhythm without murmur. ABDOMEN: Soft, normoactive bowel sounds are present. There is a moderate amount of soft/liquid stool in her ostomy bag. She has significant discomfort to light palpation around her stoma especially, but diffuse abdominal tenderness to palpation also. EXTREMITIES: Without edema. ASSESSMENT AND PLAN: 1. Abdominal pain with nausea and vomiting: The patient has had no further emesis since admission. CT of the abdomen and pelvis did not show obstruction, infection or evidence of incarceration in her known ventral and peristomal hernias. She has had good output from her ileostomy overnight, but she reports that her pain persists. We will continue her n.p.o. with IV fluid and antiemetics as needed. Dr. Robertson and Dr. Muro have been consulted for help with further management. 2. Chronic obstructive pulmonary disease: This is stable, continue nebulized treatments. She is doing well with not smoking on Chantix, we will continue this. 3. Hypothyroidism: This is stable. Continue her home dose of levothyroxine. 4. Chronic back pain: This has been stable. Continue hydrocodone. NICOLAS HICKS MD DR: HANNAH/joshua JOB#: [id number] / [id number] MICHELLE
--- NOTE | 2016-11-27 10:49 | PDOC2 ---
GI CONSULT Reason For Consult: Abd pain, n/v HPI: HPI: 61 y/o female w/ h/o apparently complicated C Diff resulting in colectomy w/ ileostomy, eventual proctectomy, and several incisional hernia repairs w/ lysis of adhesions. Chronic abd and back pain on hydrocodone QID. Also on omeprazole and ASA, has had several EGDs in the past w/ reflux (no Cuello's on path), gastritis (no H. pylori). Duodenal biopsies have been negative for celiac sprue. Tells me 5 weeks of severe abd pain, decreased ileostomy output , and vomiting. CT A/P showed no obstruction but noted parastomal ventral hernia containing fat and nondilated small bowel loops, also midline ventral hernia w/ nondilated small bowel loops. Still has pain this morning, did have some ostomy output overnight w/o recurrent vomiting. Office notes suggest h/o Crohn's which she denies. PMH: PMH: chronic abd pain, IBS, C Diff, COPD, HTN, CAD w/ stent, CVA, CKD, DVT, HLD, GERD , depression, anxiety, hypothyroidism, back pain, fibromyalgia, venous insufficiency, urinary retention, cholecystectomy, appendectomy, hysterectomy, right knee replacement, right rotator cuff repair, back surgery, sigmoid resection, colectomy, proctectomy, ventral incisional hernia repairs, relocation of ileostomy, ureteral stents, sinus surgery FH: Family History: No pertinent hx Social History: Smoke: Quit ALCOHOL: none Drugs: None ROS: GEN: Denies fevers, chills, sweats HEENT: Denies blurred vision, sore throat CV: Denies chest pain RESP: Denies shortness of air, cough GI: Per HPI : Denies hematuria, dysuria ENDO: Denies weight changes NEURO: Denies confusion, dizziness MSK: Denies weakness, joint pain/swelling SKIN: Denies jaundice, pruritus Vitals: Vitals: Vital Signs Date Time Temp Pulse Resp B/P (MAP) Pulse Ox O2 Delivery O2 Flow Rate FiO2 11/27/16 08:39 16 95 Nasal Cannula 2.0 11/27/16 07:00 97.7 74 105/64 (78) 97.7 Labs: Labs: Laboratory Tests Test 11/26/16 17:55 11/26/16 18:00 11/27/16 04:05 White Blood Count 7.1 x10^3/uL (4.0-11.0) 5.2 x10^3/uL (4.0-11.0) Red Blood Count 4.45 x10^6/uL (3.50-5.40) 3.90 x10^6/uL (3.50-5.40) Hemoglobin 12.4 g/dL (12.0-15.5) 11.1 g/dL (12.0-15.5) Hematocrit 37.3 % (36.0-47.0) 32.7 % (36.0-47.0) Mean Corpuscular Volume 84 fL (79-100) 84 fL (79-100) Mean Corpuscular Hemoglobin 28 pg (25-35) 29 pg (25-35) Mean Corpuscular Hemoglobin Concent 33 g/dL (31-37) 34 g/dL (31-37) Red Cell Distribution Width 15.0 % (11.5-14.5) 14.9 % (11.5-14.5) Platelet Count 483 x10^3/uL (140-400) 402 x10^3/uL (140-400) Neutrophils (%) (Auto) 45 % (31-73) 42 % (31-73) Lymphocytes (%) (Auto) 44 % (24-48) 45 % (24-48) Monocytes (%) (Auto) 8 % (0-9) 10 % (0-9) Eosinophils (%) (Auto) 2 % (0-3) 2 % (0-3) Basophils (%) (Auto) 1 % (0-3) 1 % (0-3) Neutrophils # (Auto) 3.2 x10^3uL (1.8-7.7) 2.2 x10^3uL (1.8-7.7) Lymphocytes # (Auto) 3.1 x10^3/uL (1.0-4.8) 2.3 x10^3/uL (1.0-4.8) Monocytes # (Auto) 0.5 x10^3/uL (0.0-1.1) 0.5 x10^3/uL (0.0-1.1) Eosinophils # (Auto) 0.2 x10^3/uL (0.0-0.7) 0.1 x10^3/uL (0.0-0.7) Basophils # (Auto) 0.1 x10^3/uL (0.0-0.2) 0.1 x10^3/uL (0.0-0.2) Sodium Level 133 mmol/L (136-145) 137 mmol/L (136-145) Potassium Level 3.9 mmol/L (3.5-5.1) 4.3 mmol/L (3.5-5.1) Chloride Level 94 mmol/L (98-107) 102 mmol/L (98-107) Carbon Dioxide Level 29 mmol/L (21-32) 27 mmol/L (21-32) Anion Gap 10 (6-14) 8 (6-14) Blood Urea Nitrogen 10 mg/dL (7-20) 8 mg/dL (7-20) Creatinine 0.8 mg/dL (0.6-1.0) 0.7 mg/dL (0.6-1.0) Estimated GFR (Cockcroft-Gault) 73.4 85.6 BUN/Creatinine Ratio 13 (6-20) Glucose Level 119 mg/dL (70-99) 102 mg/dL (70-99) Lactic Acid Level 1.8 mmol/L (0.4-2.0) Calcium Level 9.7 mg/dL (8.5-10.1) 9.1 mg/dL (8.5-10.1) Total Bilirubin 0.1 mg/dL (0.2-1.0) Aspartate Amino Transf (AST/SGOT) 19 U/L (15-37) Alanine Aminotransferase (ALT/SGPT) 22 U/L (14-59) Alkaline Phosphatase 191 U/L (46-116) Total Protein 8.2 g/dL (6.4-8.2) Albumin 4.0 g/dL (3.4-5.0) Albumin/Globulin Ratio 1.0 (1.0-1.7) Lipase 196 U/L (73-393) Urine Collection Type Unknown Urine Color Yellow Urine Clarity Clear Urine pH 6.0 Urine Specific [place] 1.010 Urine Protein Negative mg/dL (NEG-TRACE) Urine Glucose (UA) Negative mg/dL (NEG) Urine Ketones (Stick) Negative mg/dL (NEG) Urine Blood Moderate (NEG) Urine Nitrite Negative (NEG) Urine Bilirubin Negative (NEG) Urine Urobilinogen Dipstick 0.2 mg/dL (0.2 mg/dL) Urine Leukocyte Esterase Negative (NEG) Urine RBC 1-2 /HPF (0-2) Urine WBC Occ /HPF (0-4) Urine Squamous Epithelial Cells Few /LPF Urine Bacteria Few /HPF (0-FEW) Allergies: Coded Allergies: phenytoin sodium (Verified Allergy, Intermediate, 12/31/14) phenytoin sodium extended (Verified Allergy, Intermediate, 12/31/14) doxycycline (Verified Adverse Reaction, Intermediate, GI UPSET, 12/31/14) pregabalin (Verified Adverse Reaction, Intermediate, NIGHTMARES, 12/31/14) Medications: Current Medications Medications (Trade) Dose Ordered Sig/Joel Route PRN Reason Start Time Stop Time Status Last Admin Dose Admin Fentanyl Citrate (Fentanyl 2ml Vial) 50 mcg PRN Q15MIN PRN IV PAIN GREATER THAN 3/10 11/26/16 18:00 11/27/16 17:59 11/26/16 19:41 Sodium Chloride 1,000 ml @ 1,000 mls/hr Q1H IV 11/26/16 18:00 11/26/16 18:59 DC 11/26/16 18:20 Ondansetron HCl (Zofran) 4 mg 1X ONCE IV 11/26/16 18:00 11/26/16 18:01 DC 11/26/16 18:19 Iohexol (Omnipaque 300 Mg/ml) 60 ml 1X ONCE IV 11/26/16 18:15 11/26/16 18:16 DC 11/26/16 18:39 Fentanyl Citrate (Fentanyl 2ml Vial) 50 mcg PRN Q1HR PRN IV PAIN 11/26/16 19:45 11/27/16 19:44 11/27/16 08:39 Sodium Chloride 1,000 ml @ 100 mls/hr Q10H IV 11/26/16 20:00 11/27/16 19:59 11/27/16 06:25 Gabapentin (Neurontin) 600 mg 1X ONCE PO 11/26/16 21:45 11/26/16 21:46 DC 11/26/16 22:14 Varenicline (Chantix) 1 mg 1X ONCE PO 11/26/16 21:45 11/26/16 21:46 DC 11/26/16 22:15 Atorvastatin Calcium (Lipitor) 40 mg 1X ONCE PO 11/26/16 21:45 11/26/16 21:46 DC 11/26/16 22:15 Alprazolam (Xanax) 1 mg 1X ONCE PO 11/26/16 21:45 11/26/16 21:46 DC 11/26/16 22:15 Tizanidine HCl (Zanaflex) 4 mg 1X ONCE PO 11/26/16 21:45 11/26/16 21:46 DC 11/26/16 22:15 Potassium Chloride (Klor-Con) 20 meq 1X ONCE PO 11/26/16 21:45 11/26/16 21:46 DC 11/26/16 22:14 Imaging: Imaging: CT A/P w/ IV contrast 11/26/16 Images through the lung bases demonstrate minimal dependent subsegmental atelectasis bilaterally. The liver, spleen, pancreas, adrenal glands and kidneys are within normal limits. Moderate atherosclerotic calcification of the abdominal aorta and its branches is noted. The abdominal aorta tapers normally. No free fluid or free air is seen within the abdomen. There is no evidence of bowel obstruction. The patient appears to be post colectomy. An ostomy is seen within the left mid abdomen. There is an associated parastomal ventral hernia which contains fat and nondilated small bowel loops. It measures 8.5 cm in size. A midline ventral hernia is seen more inferiorly in the mid pelvis which contains nondilated small bowel loops. This measures 3.4 cm in size. Images through the pelvis demonstrate the urinary bladder distended with urine. The patient is post left KALE[place]. There appears to be a moderate sized cystocele. No free fluid is noted. Postsurgical changes are again seen involving the lower lumbar spine. IMPRESSION: No acute abnormality is seen. PE: GEN: NAD HEENT: Atraumatic, PERRL LUNGS: decreased HEART: RRR ABD: left-sided ileostomy w/ brown soft stool, BS+, tender around stoma EXTREMITY: No edema SKIN: No rashes, no jaundice NEURO/PSYCH: A & O 3, tearful A/P: A/P: Abd pain, n/v, decreased ostomy output -pain mostly around stoma Multiple abd surgeries -colectomy, proctectomy, hernia repairs, [facility] Abnormal CT -parastomal ventral hernia containing fat and nondilated small bowel loops, also midline ventral hernia w/ nondilated small bowel loops GERD -controlled on PPI Anxiety/depression -- Await surgical input. VIJAY BRIONES Nov 27, 2016 10:49
[2016-11-27] MEDS: VITAMIN E 200 UNIT CAPSULE. PO SCH (11:03)
[2016-11-27] MEDS: MAGNESIUM OXIDE 400 MG TABLET PO SCH ×4 (11:03→20:33)
[2016-11-27] MEDS: OMEGA-3 FATTY ACIDS/FISH OIL 1,000 MG CAPSULE. PO SCH (11:03)
[2016-11-27] MEDS: CHOLECALCIFEROL (VITAMIN D3) 1,000 UNIT TABLET PO SCH (11:03)
[2016-11-27] MEDS: ASPIRIN 325 MG TABLET PO SCH (11:03)
[2016-11-27] MEDS: tiZANidine 4 MG TABLET. PO SCH ×4 (11:03→20:34)
[2016-11-27] MEDS: FUROSEMIDE 40 MG TABLET. PO SCH (11:03)
[2016-11-27] MEDS: VARENICLINE 0.5 MG TABLET. PO SCH ×2 (11:04→20:33)
[2016-11-27] MEDS: GABAPENTIN 300 MG CAPSULE. PO SCH ×3 (11:04→20:33)
[2016-11-27] MEDS: POTASSIUM CHLORIDE 20 MEQ TABLET.ER. PO SCH ×3 (11:04→16:18)
[2016-11-27] MEDS: ALBUTEROL SULFATE 2.5 MG/3 ML NEBU. NEB SCH ×4 (11:12→23:28)
[2016-11-27] MEDS: BUDESONIDE 0.5 MG/2 ML NEBU. NEB SCH ×2 (11:12→20:07)
[2016-11-27] MEDS: HYDROcodone/APAP 7.5/325MG 1 TAB TABLET PO PRN ×2 (11:31→20:35)
[2016-11-27] MEDS: PANTOPRAZOLE 40 MG TABLET.DR. PO SCH (11:31)
[2016-11-27] MEDS: LEVOTHYROXINE 150 MCG TABLET PO SCH (11:31)
[2016-11-27] MEDS ORDERED: ALBUTEROL SULFATE IH SCH (12:00)
[2016-11-27] MEDS ORDERED: IOHEXOL 350 MG/ML 100 ML VIAL. PO ONE (12:45)
[2016-11-27] MEDS ORDERED: IOHEXOL 350 MG/ML 100 ML VIAL. ONE ×2 (13:04→13:24)
[2016-11-27] MEDS ORDERED: CONTRAST GIVEN MC PRN (13:30)
[2016-11-27] MEDS ORDERED: IOHEXOL 300 MG/ML 100ML VIAL. PO ONE (13:30)
--- NOTE | 2016-11-27 14:40 | RAD ---
Small bowel series, 11/27/2016: History: Poor ostomy output The preliminary abdominal image demonstrates a moderate amount of gas in the GI tract in a nonspecific pattern. There are surgical implants in the lower lumbar spine. A left hip prosthesis is in place. Serial radiographs were obtained following oral ingestion of nonionic contrast material. Fluoroscopy was not performed. The small bowel loops are of normal caliber with no evidence of thickening of their folds. There is prompt passage of the contrast through the small bowel into the patient's left mid abdominal ileostomy. There is a nondilated small bowel loop in a parastomal hernia, as also noted on the recent CT study. IMPRESSION: No evidence of small bowel obstruction.
[2016-11-27] MEDS: ALPRAZolam 1 MG TABLET PO PRN ×2 (15:44→21:56)
--- NOTE | 2016-11-27 19:33 | PDOC2 ---
CONSULT Date of Consult Date of Consult DATE: 11/27/16 TIME: 19:24 Reason for Consult Reason for Consult: parastomal hernia, incision hernia Referring Physician Referring Physician: Dr. Leon Identification/Chief Complaint Chief Complaint N/V, abd pain Problems: Source Source: Patient History of Present Illness Reason for Visit: 61 yo F with complicated medical history and surgical history. Notes several month history of abd pain and bloating. She has noted a reducible bulge in the left upper quadrant, associated with her stomal. She was seen in the office last week, but her symptoms progressed to the point of significant abd pain N/V with feculent output. She has noted decreased ostomy output and overall weight gain. She was seen in her hospital room, sleeping but awakens easily. Past Medical History GI: GERD Psych: Depression Endocrine: Hypothyroidism Past Surgical History Past Surgical History: Cholecystectomy, Hernia Repair, Hysterectomy, Colon Resection Family History Family History: No Significant Social History Quit ALCOHOL: none Drugs: None Current Problem List Problem List Problems Medical Problems: (1) Abdominal pain Status: Acute Current Medications Current Medications Current Medications Fentanyl Citrate (Fentanyl 2ml Vial) 50 mcg PRN Q15MIN PRN IV PAIN GREATER THAN 3/10 Last administered on 11/26/16 19:41; Start 11/26/16 at 18:00; Stop at 17:59; Status DC Sodium Chloride 1,000 ml @ 1,000 mls/hr Q1H IV Last administered on 11/26/16 18:20; Start 11/26/16 at 18:00; Stop 11/26/16 at 18:59; Status DC Ondansetron HCl (Zofran) 4 mg 1X ONCE IV Last administered on 11/26/16 18:19 ; Start 11/26/16 at 18:00; Stop 11/26/16 at 18:01; Status DC Iohexol (Omnipaque 300 Mg/ml) 60 ml 1X ONCE IV Last administered on 11/26/16 18:39; Start 11/26/16 at 18:15; Stop 11/26/16 at 18:16; Status DC Info (Do NOT chart on this entry -- for MONITORING) 1 each PRN DAILY PRN MC SEE COMMENTS; Start 11/26/16 at 18:15; Stop 11/28/16 at 18:14 Ondansetron HCl (Zofran) 4 mg PRN Q8HRS PRN IV NAUSEA/VOMITING; Start 11/26/16 at 19:45; Stop 11/27/16 at 19:44 Fentanyl Citrate (Fentanyl 2ml Vial) 50 mcg PRN Q1HR PRN IV PAIN Last administered on 11/27/16 16:15; Start 11/26/16 at 19:45; Stop 11/27/16 at 19:44 Sodium Chloride 1,000 ml @ 100 mls/hr Q10H IV Last administered on 11/27/16 16:17; Start 11/26/16 at 20:00; Stop 11/27/16 at 19:59 Acetaminophen (Tylenol) 650 mg PRN Q4HRS PRN PO FEVER; Start 11/26/16 at 19:45 ; Stop 11/27/16 at 19:44 Gabapentin (Neurontin) 600 mg 1X ONCE PO Last administered on 11/26/16 22:14 ; Start 11/26/16 at 21:45; Stop 11/26/16 at 21:46; Status DC Varenicline (Chantix) 1 mg 1X ONCE PO Last administered on 11/26/16 22:15; Start 11/26/16 at 21:45; Stop 11/26/16 at 21:46; Status DC Atorvastatin Calcium (Lipitor) 40 mg 1X ONCE PO Last administered on 22:15; Start 11/26/16 at 21:45; Stop 11/26/16 at 21:46; Status DC Alprazolam (Xanax) 1 mg 1X ONCE PO Last administered on 11/26/16 22:15; Start 11/26/16 at 21:45; Stop 11/26/16 at 21:46; Status DC Tizanidine HCl (Zanaflex) 4 mg 1X ONCE PO Last administered on 11/26/16 22:15 ; Start 11/26/16 at 21:45; Stop 11/26/16 at 21:46; Status DC Potassium Chloride (Klor-Con) 20 meq 1X ONCE PO Last administered on 22:14; Start 11/26/16 at 21:45; Stop 11/26/16 at 21:46; Status DC Alprazolam (Xanax) 1 mg PRN QID PRN PO ANXIETY / AGITATION Last administered on 11/27/16 15:44; Start 11/27/16 at 08:45 Aspirin (Nader Aspirin) 325 mg DAILY PO Last administered on 11/27/16 11:03; Start 11/27/16 at 09:00 Atorvastatin Calcium (Lipitor) 40 mg HS PO ; Start 11/27/16 at 21:00 Dicyclomine HCl (Bentyl) 20 mg PRN Q6HRS PRN PO GI PAIN; Start 11/27/16 at 08: 45 Furosemide (Lasix) 40 mg DAILY PO Last administered on 11/27/16 11:03; Start 11/27/16 at 09:00 Acetaminophen/ Hydrocodone Bitart (Lortab 7.5/325) 1 tab PRN Q6HRS PRN PO PAIN Last administered on 11/27/16 11:31; Start 11/27/16 at 08:45 Levothyroxine Sodium (Synthroid) 150 mcg DAILY07 PO Last administered on 11:31; Start 11/27/16 at 10:30 Magnesium Oxide (Magnesium Oxide) 400 mg QID PO Last administered on 11/27/16 17:22; Start 11/27/16 at 09:00 Tizanidine HCl (Zanaflex) 4 mg QID PO Last administered on 11/27/16 17:22; Start 11/27/16 at 09:00 Non-Formulary Medication 8.5 gm Q4HRS IH ; Start 11/27/16 at 12:00; Stop at 12:00; Status DC Vitamin D (Vitamin D3) 1,000 unit DAILY PO Last administered on 11/27/16 11:03 ; Start 11/27/16 at 09:00 Non-Formulary Medication 1 each BID IH ; Start 11/27/16 at 09:00; Stop 11/27/16 at 09:38; Status DC Gabapentin (Neurontin) 600 mg TID PO Last administered on 11/27/16 16:17; Start 11/27/16 at 09:00 Fish Oil (Fish Oil) 1,000 mg DAILY PO Last administered on 11/27/16 11:03; Start 11/27/16 at 09:00 Pantoprazole Sodium (Protonix) 40 mg DAILYAC PO Last administered on 11/27/16 11:31; Start 11/27/16 at 11:30 Potassium Chloride (Klor-Con) 20 meq TIDWMEALS PO Last administered on 16:18; Start 11/27/16 at 09:00 Vitamin E 400 unit DAILY PO Last administered on 11/27/16 11:03; Start at 09:00 Varenicline (Chantix) 1 mg BID PO Last administered on 11/27/16 11:04; Start 11/27/16 at 09:00 Albuterol Sulfate (Ventolin Neb Soln) 2.5 mg Q4HRS NEB Last administered on 15:16; Start 11/27/16 at 12:00 Budesonide (Pulmicort) 0.5 mg RTBID NEB Last administered on 11/27/16 11:12; Start 11/27/16 at 10:00 Iohexol (Omnipaque 350 Mg/ml) 300 ml 1X ONCE PO Last administered on 13:30; Start 11/27/16 at 12:45; Stop 11/27/16 at 12:48; Status DC Iohexol (Omnipaque 350 Mg/ml) 100 ml STK-MED ONCE .ROUTE ; Start 11/27/16 at 13: 04; Stop 11/27/16 at 13:05; Status DC Iohexol (Omnipaque 300 Mg/ml) 300 ml 1X ONCE PO ; Start 11/27/16 at 13:30; Stop 11/27/16 at 13:31; Status DC Info (Do NOT chart on this entry -- for MONITORING) 1 each PRN DAILY PRN MC SEE COMMENTS; Start 11/27/16 at 13:30; Stop 11/29/16 at 13:29 Iohexol (Omnipaque 350 Mg/ml) 100 ml STK-MED ONCE .ROUTE ; Start 11/27/16 at 13: 24; Stop 11/27/16 at 13:25; Status DC Ondansetron HCl (Zofran) 4 mg PRN Q6HRS PRN IV NAUSEA/VOMITING; Start 11/28/16 at 07:00; Stop 11/28/16 at 18:00 Fentanyl Citrate (Fentanyl 2ml Vial) 25 mcg PRN Q5MIN PRN IV MILD PAIN; Start 11/28/16 at 07:00; Stop 11/28/16 at 18:00 Fentanyl Citrate (Fentanyl 2ml Vial) 50 mcg PRN Q5MIN PRN IV MODERATE PAIN; Start 11/28/16 at 07:00; Stop 11/28/16 at 18:00 Morphine Sulfate 1 mg PRN Q10MIN PRN IV SEVERE PAIN; Start 11/28/16 at 07:00; Stop 11/28/16 at 18:00 Ringer's Solution 1,000 ml @ 30 mls/hr Q24H IV ; Start 11/28/16 at 07:00; Stop 11/28/16 at 18:59 Lidocaine HCl 2 ml PRN 1X PRN ID PRIOR TO IV START; Start 11/28/16 at 07:00; Stop 11/28/16 at 18:00 Hydromorphone HCl (Dilaudid) 0.5 mg PRN Q10MIN PRN IV SEV PAIN, Second choice; Start 11/28/16 at 07:00; Stop 11/28/16 at 18:00 Prochlorperazine Edisylate (Compazine) 5 mg PACU PRN PRN IV NAUSEA, MRX1; Start 11/28/16 at 07:00; Stop 11/28/16 at 18:00 Cefoxitin Sodium 2 gm/Sodium Chloride 100 ml @ 200 mls/hr 1X PREOP IV ; Start 11/27/16 at 19:15; Stop 11/27/16 at 19:15; Status DC Cefoxitin Sodium 2 gm/Sodium Chloride 100 ml @ 200 mls/hr 1X PREOP ONCE IV ; Start 11/28/16 at 06:00; Stop 11/28/16 at 06:29 Active Scripts Active Hydrocodone-Apap 7.5-325 (Hydrocodone Bit/Acetaminophen) 1 Each Tablet 1 Tab PO PRN Q6HRS PRN 30 Days Levothyroxine Sodium 150 Mcg Tablet 1 Tab PO DAILY Bentyl (Dicyclomine Hcl) 10 Mg Capsule 20 Mg PO Q6HRS Reported Chantix (Varenicline Tartrate) 1 Mg Tablet 1 Mg PO BID Atorvastatin Calcium 20 Mg Tablet 40 Mg PO HS Vitamin D (Cholecalciferol (Vitamin D3)) 1,000 Unit Capsule 1,000 Unit PO DAILY Vitamin E 400 Unit Capsule 400 Unit PO DAILY Fish Oil ([place]-3 Fatty Acids) 500 Mg Capsule 500 Mg PO DAILY Magnesium Oxide 400 Mg Tablet 400 Mg PO QID Xanax (Alprazolam) 1 Mg Tablet 1 Mg PO QID Lasix (Furosemide) 40 Mg Tablet 40 Mg PO DAILY Aspirin 325 Mg Tablet 325 Mg PO DAILY Gabapentin 600 Mg Tablet 600 Mg PO TID Tizanidine Hcl 4 Mg Tablet 4 Mg PO QID Estradiol 1 Each Patch.tdwk 1 Each TD DAILY07 Omeprazole 20 Mg Tablet.dr 20 Mg PO DAILY07 Klor-Con (Potassium Chloride) 20 Meq Packet 20 Meq PO TID Proair Hfa Inhaler (Albuterol Sulfate) 8.5 Gm Hfa.aer.ad 8.5 Gm IH Q4HRS Advair 500-50 Diskus (Fluticasone/Salmeterol) 1 Each Disk.w.dev 1 Each IH BID Allergies Allergies: Coded Allergies: phenytoin sodium (Verified Allergy, Intermediate, 12/31/14) phenytoin sodium extended (Verified Allergy, Intermediate, 12/31/14) doxycycline (Verified Adverse Reaction, Intermediate, GI UPSET, 12/31/14) pregabalin (Verified Adverse Reaction, Intermediate, NIGHTMARES, 12/31/14) ROS General: YES: Other (weight gain) PSYCHOLOGICAL ROS: YES: Depression Gastrointestinal: Yes Nausea, Yes Vomiting, Yes Constipation Physical Exam General: Alert, Cooperative, mild distress HEENT: Atraumatic, EOMI Lungs: Normal air movement Abdomen: Soft, Other (diffuse TTP, bulge in LUQ, ostomy fxn with output) Extremities: No clubbing, No cyanosis Skin: No rashes, No breakdown Neuro: Normal speech, Sensation intact Psych/Mental Status: Mental status NL, Mood NL MUSCULOSKELETAL: No deformity Vitals VITALS Vital Signs Date Time Temp Pulse Resp B/P (MAP) Pulse Ox O2 Delivery O2 Flow Rate FiO2 11/27/16 16:45 18 93 Room Air 11/27/16 15:00 98.4 93 122/81 (95) 98.4 11/27/16 08:39 2.0 Labs Labs Laboratory Tests Test 11/26/16 17:55 11/26/16 18:00 11/27/16 04:05 White Blood Count 7.1 x10^3/uL (4.0-11.0) 5.2 x10^3/uL (4.0-11.0) Red Blood Count 4.45 x10^6/uL (3.50-5.40) 3.90 x10^6/uL (3.50-5.40) Hemoglobin 12.4 g/dL (12.0-15.5) 11.1 g/dL (12.0-15.5) Hematocrit 37.3 % (36.0-47.0) 32.7 % (36.0-47.0) Mean Corpuscular Volume 84 fL (79-100) 84 fL (79-100) Mean Corpuscular Hemoglobin 28 pg (25-35) 29 pg (25-35) Mean Corpuscular Hemoglobin Concent 33 g/dL (31-37) 34 g/dL (31-37) Red Cell Distribution Width 15.0 % (11.5-14.5) 14.9 % (11.5-14.5) Platelet Count 483 x10^3/uL (140-400) 402 x10^3/uL (140-400) Neutrophils (%) (Auto) 45 % (31-73) 42 % (31-73) Lymphocytes (%) (Auto) 44 % (24-48) 45 % (24-48) Monocytes (%) (Auto) 8 % (0-9) 10 % (0-9) Eosinophils (%) (Auto) 2 % (0-3) 2 % (0-3) Basophils (%) (Auto) 1 % (0-3) 1 % (0-3) Neutrophils # (Auto) 3.2 x10^3uL (1.8-7.7) 2.2 x10^3uL (1.8-7.7) Lymphocytes # (Auto) 3.1 x10^3/uL (1.0-4.8) 2.3 x10^3/uL (1.0-4.8) Monocytes # (Auto) 0.5 x10^3/uL (0.0-1.1) 0.5 x10^3/uL (0.0-1.1) Eosinophils # (Auto) 0.2 x10^3/uL (0.0-0.7) 0.1 x10^3/uL (0.0-0.7) Basophils # (Auto) 0.1 x10^3/uL (0.0-0.2) 0.1 x10^3/uL (0.0-0.2) Sodium Level 133 mmol/L (136-145) 137 mmol/L (136-145) Potassium Level 3.9 mmol/L (3.5-5.1) 4.3 mmol/L (3.5-5.1) Chloride Level 94 mmol/L (98-107) 102 mmol/L (98-107) Carbon Dioxide Level 29 mmol/L (21-32) 27 mmol/L (21-32) Anion Gap 10 (6-14) 8 (6-14) Blood Urea Nitrogen 10 mg/dL (7-20) 8 mg/dL (7-20) Creatinine 0.8 mg/dL (0.6-1.0) 0.7 mg/dL (0.6-1.0) Estimated GFR (Cockcroft-Gault) 73.4 85.6 BUN/Creatinine Ratio 13 (6-20) Glucose Level 119 mg/dL (70-99) 102 mg/dL (70-99) Lactic Acid Level 1.8 mmol/L (0.4-2.0) Calcium Level 9.7 mg/dL (8.5-10.1) 9.1 mg/dL (8.5-10.1) Total Bilirubin 0.1 mg/dL (0.2-1.0) Aspartate Amino Transf (AST/SGOT) 19 U/L (15-37) Alanine Aminotransferase (ALT/SGPT) 22 U/L (14-59) Alkaline Phosphatase 191 U/L (46-116) Total Protein 8.2 g/dL (6.4-8.2) Albumin 4.0 g/dL (3.4-5.0) Albumin/Globulin Ratio 1.0 (1.0-1.7) Lipase 196 U/L (73-393) Urine Collection Type Unknown Urine Color Yellow Urine Clarity Clear Urine pH 6.0 Urine Specific [place] 1.010 Urine Protein Negative mg/dL (NEG-TRACE) Urine Glucose (UA) Negative mg/dL (NEG) Urine Ketones (Stick) Negative mg/dL (NEG) Urine Blood Moderate (NEG) Urine Nitrite Negative (NEG) Urine Bilirubin Negative (NEG) Urine Urobilinogen Dipstick 0.2 mg/dL (0.2 mg/dL) Urine Leukocyte Esterase Negative (NEG) Urine RBC 1-2 /HPF (0-2) Urine WBC Occ /HPF (0-4) Urine Squamous Epithelial Cells Few /LPF Urine Bacteria Few /HPF (0-FEW) Laboratory Tests Test 11/27/16 04:05 White Blood Count 5.2 x10^3/uL (4.0-11.0) Red Blood Count 3.90 x10^6/uL (3.50-5.40) Hemoglobin 11.1 g/dL (12.0-15.5) Hematocrit 32.7 % (36.0-47.0) Mean Corpuscular Volume 84 fL (79-100) Mean Corpuscular Hemoglobin 29 pg (25-35) Mean Corpuscular Hemoglobin Concent 34 g/dL (31-37) Red Cell Distribution Width 14.9 % (11.5-14.5) Platelet Count 402 x10^3/uL (140-400) Neutrophils (%) (Auto) 42 % (31-73) Lymphocytes (%) (Auto) 45 % (24-48) Monocytes (%) (Auto) 10 % (0-9) Eosinophils (%) (Auto) 2 % (0-3) Basophils (%) (Auto) 1 % (0-3) Neutrophils # (Auto) 2.2 x10^3uL (1.8-7.7) Lymphocytes # (Auto) 2.3 x10^3/uL (1.0-4.8) Monocytes # (Auto) 0.5 x10^3/uL (0.0-1.1) Eosinophils # (Auto) 0.1 x10^3/uL (0.0-0.7) Basophils # (Auto) 0.1 x10^3/uL (0.0-0.2) Sodium Level 137 mmol/L (136-145) Potassium Level 4.3 mmol/L (3.5-5.1) Chloride Level 102 mmol/L (98-107) Carbon Dioxide Level 27 mmol/L (21-32) Anion Gap 8 (6-14) Blood Urea Nitrogen 8 mg/dL (7-20) Creatinine 0.7 mg/dL (0.6-1.0) Estimated GFR (Cockcroft-Gault) 85.6 Glucose Level 102 mg/dL (70-99) Calcium Level 9.1 mg/dL (8.5-10.1) Images Images Ct demonstrates VIH, parastomal hernia, no obstruction; SBFT without evidence of obstruction Assessment/Plan Assessment/Plan VIH, parastomal hernia will plan repair of above. Pt does represent a poor surgical candidate, although better then previous. However, given her persistent pain, surgery is indicated. R/B/A d/w pt. Risks, including, but not limited to: bleeding, infection, damage to surrounding structures, risk of anesthesia, risk of hernia recurrence. She appears to understand, her questions are answered and she agrees to proceed. Thank you for allowing consultation with this pleasant patient. LETICIA KAUFFMAN MD Nov 27, 2016 19:33
[2016-11-27] MEDS: ATORVASTATIN CALCIUM 20 MG TABLET PO SCH (20:33)
[2016-11-27] MEDS: DICYCLOMINE HCL 10 MG CAPSULE PO PRN (20:33)
[2016-11-28] VITALS (11 sets, daily range): BP systolic 111–146; BP diastolic 60–72
[2016-11-28] MEDS: ALBUTEROL SULFATE 2.5 MG/3 ML NEBU. NEB SCH ×6 (03:11→23:23)
[2016-11-28] MEDS ORDERED: ONDANSETRON PF 4 MG/2 ML VIAL. IV PRN ×3 (03:45→07:00)
[2016-11-28] MEDS: fentaNYL PF VIAL 100 MCG/2 ML VIAL IV PRN ×7 (03:50→13:50)
[2016-11-28] MEDS: ONDANSETRON PF 4 MG/2 ML VIAL. IV PRN ×2 (04:10→17:15)
[2016-11-28] MEDS: ALPRAZolam 1 MG TABLET PO PRN ×2 (06:09→20:01)
[2016-11-28] MEDS ORDERED: IV RINGERS,LACTATED 1000ML 1,000 ML IV SCH (07:00)
[2016-11-28] MEDS ORDERED: MORPHINE SULFATE 2 MG/ML DISP.SYRIN. IV PRN (07:00)
[2016-11-28] MEDS ORDERED: PROCHLORPERAZINE 10 MG/2 ML VIAL. IV PRN (07:00)
[2016-11-28] MEDS: LEVOTHYROXINE 150 MCG TABLET PO SCH (07:00)
[2016-11-28] MEDS ORDERED: LIDOCAINE 1% 1 ML SYRINGE. ID PRN (07:00)
[2016-11-28] MEDS ORDERED: fentaNYL PF VIAL 100 MCG/2 ML VIAL IV PRN (07:00)
[2016-11-28] MEDS: BUDESONIDE 0.5 MG/2 ML NEBU. NEB SCH ×2 (07:11→19:40)
[2016-11-28] MEDS: PANTOPRAZOLE 40 MG TABLET.DR. PO SCH (07:30)
[2016-11-28] MEDS: VITAMIN E 200 UNIT CAPSULE. PO SCH (07:47)
[2016-11-28] MEDS: POTASSIUM CHLORIDE 20 MEQ TABLET.ER. PO SCH ×3 (07:47→17:00)
[2016-11-28] MEDS: GABAPENTIN 300 MG CAPSULE. PO SCH ×3 (07:48→20:02)
[2016-11-28] MEDS: FUROSEMIDE 40 MG TABLET. PO SCH (07:48)
[2016-11-28] MEDS: VARENICLINE 0.5 MG TABLET. PO SCH ×2 (07:48→20:02)
[2016-11-28] MEDS: ASPIRIN 325 MG TABLET PO SCH (07:48)
[2016-11-28] MEDS: MAGNESIUM OXIDE 400 MG TABLET PO SCH ×4 (07:48→20:02)
[2016-11-28] MEDS: OMEGA-3 FATTY ACIDS/FISH OIL 1,000 MG CAPSULE. PO SCH (07:48)
[2016-11-28] MEDS: CHOLECALCIFEROL (VITAMIN D3) 1,000 UNIT TABLET PO SCH (07:49)
[2016-11-28] MEDS: tiZANidine 4 MG TABLET. PO SCH ×4 (07:49→20:02)
[2016-11-28] MEDS ORDERED: BUPIVACAINE-EPI 0.5%-1:200000 50 ML VIAL. ONE (07:52)
[2016-11-28] MEDS ORDERED: fentaNYL PF VIAL 100 MCG/2 ML VIAL ONE ×3 (08:39→13:36)
[2016-11-28] MEDS ORDERED: DEXAMETHASONE SOD PHOS 20 MG/5 ML VIAL. ONE (08:39)
[2016-11-28] MEDS ORDERED: PROPOFOL 20 ML IV ONE (08:39)
[2016-11-28] MEDS ORDERED: ONDANSETRON PF 4 MG/2 ML VIAL. ONE (08:39)
[2016-11-28] MEDS ORDERED: ROCURONIUM 100 MG/10 ML VIAL. ONE (08:39)
[2016-11-28] MEDS ORDERED: LIDOCAINE 2% PF Vial for OR 5 ML VIAL. ONE (08:39)
[2016-11-28] MEDS ORDERED: MIDAZOLAM HCL/PF 2 MG/2 ML VIAL. ONE (09:00)
--- NOTE | 2016-11-28 09:01 | PDOC ---
SURGICAL PROGRESS NOTE Subjective Pre-Op Note 61 yo F with parastomal hernia, VIH TO OR for repair R/B/A d/w pt and pt's Vital Signs Vital Signs Date Time Temp Pulse Resp B/P (MAP) Pulse Ox O2 Delivery O2 Flow Rate FiO2 11/28/16 08:14 99.6 90 23 136/76 98 Room Air 2.0 99.6 Labs Laboratory Tests Test 11/26/16 17:55 11/26/16 18:00 11/27/16 04:05 White Blood Count 7.1 x10^3/uL (4.0-11.0) 5.2 x10^3/uL (4.0-11.0) Red Blood Count 4.45 x10^6/uL (3.50-5.40) 3.90 x10^6/uL (3.50-5.40) Hemoglobin 12.4 g/dL (12.0-15.5) 11.1 g/dL (12.0-15.5) Hematocrit 37.3 % (36.0-47.0) 32.7 % (36.0-47.0) Mean Corpuscular Volume 84 fL (79-100) 84 fL (79-100) Mean Corpuscular Hemoglobin 28 pg (25-35) 29 pg (25-35) Mean Corpuscular Hemoglobin Concent 33 g/dL (31-37) 34 g/dL (31-37) Red Cell Distribution Width 15.0 % (11.5-14.5) 14.9 % (11.5-14.5) Platelet Count 483 x10^3/uL (140-400) 402 x10^3/uL (140-400) Neutrophils (%) (Auto) 45 % (31-73) 42 % (31-73) Lymphocytes (%) (Auto) 44 % (24-48) 45 % (24-48) Monocytes (%) (Auto) 8 % (0-9) 10 % (0-9) Eosinophils (%) (Auto) 2 % (0-3) 2 % (0-3) Basophils (%) (Auto) 1 % (0-3) 1 % (0-3) Neutrophils # (Auto) 3.2 x10^3uL (1.8-7.7) 2.2 x10^3uL (1.8-7.7) Lymphocytes # (Auto) 3.1 x10^3/uL (1.0-4.8) 2.3 x10^3/uL (1.0-4.8) Monocytes # (Auto) 0.5 x10^3/uL (0.0-1.1) 0.5 x10^3/uL (0.0-1.1) Eosinophils # (Auto) 0.2 x10^3/uL (0.0-0.7) 0.1 x10^3/uL (0.0-0.7) Basophils # (Auto) 0.1 x10^3/uL (0.0-0.2) 0.1 x10^3/uL (0.0-0.2) Sodium Level 133 mmol/L (136-145) 137 mmol/L (136-145) Potassium Level 3.9 mmol/L (3.5-5.1) 4.3 mmol/L (3.5-5.1) Chloride Level 94 mmol/L (98-107) 102 mmol/L (98-107) Carbon Dioxide Level 29 mmol/L (21-32) 27 mmol/L (21-32) Anion Gap 10 (6-14) 8 (6-14) Blood Urea Nitrogen 10 mg/dL (7-20) 8 mg/dL (7-20) Creatinine 0.8 mg/dL (0.6-1.0) 0.7 mg/dL (0.6-1.0) Estimated GFR (Cockcroft-Gault) 73.4 85.6 BUN/Creatinine Ratio 13 (6-20) Glucose Level 119 mg/dL (70-99) 102 mg/dL (70-99) Lactic Acid Level 1.8 mmol/L (0.4-2.0) Calcium Level 9.7 mg/dL (8.5-10.1) 9.1 mg/dL (8.5-10.1) Total Bilirubin 0.1 mg/dL (0.2-1.0) Aspartate Amino Transf (AST/SGOT) 19 U/L (15-37) Alanine Aminotransferase (ALT/SGPT) 22 U/L (14-59) Alkaline Phosphatase 191 U/L (46-116) Total Protein 8.2 g/dL (6.4-8.2) Albumin 4.0 g/dL (3.4-5.0) Albumin/Globulin Ratio 1.0 (1.0-1.7) Lipase 196 U/L (73-393) Urine Collection Type Unknown Urine Color Yellow Urine Clarity Clear Urine pH 6.0 Urine Specific [place] 1.010 Urine Protein Negative mg/dL (NEG-TRACE) Urine Glucose (UA) Negative mg/dL (NEG) Urine Ketones (Stick) Negative mg/dL (NEG) Urine Blood Moderate (NEG) Urine Nitrite Negative (NEG) Urine Bilirubin Negative (NEG) Urine Urobilinogen Dipstick 0.2 mg/dL (0.2 mg/dL) Urine Leukocyte Esterase Negative (NEG) Urine RBC 1-2 /HPF (0-2) Urine WBC Occ /HPF (0-4) Urine Squamous Epithelial Cells Few /LPF Urine Bacteria Few /HPF (0-FEW) Problem List Problems Medical Problems: (1) Abdominal pain Status: Acute Problems: LETICIA KAUFFMAN MD Nov 28, 2016 09:01
[2016-11-28] MEDS ORDERED: fentaNYL PF VIAL 250 MCG/5 ML VIAL ONE (09:28)
--- NOTE | 2016-11-28 09:29 | PDOC ---
PROGRESS NOTES Subjective Subjective (Patient in surgery, not seen). Objective Objective Vital Signs Date Time Temp Pulse Resp B/P (MAP) Pulse Ox O2 Delivery O2 Flow Rate FiO2 11/28/16 08:14 99.6 90 23 136/76 98 Room Air 2.0 99.6 Assessment Assessment Problems Medical Problems: (1) Abdominal pain Status: Acute Plan Plan of Care 1. Abdominal hernias - patient having surgical repair today per Dr Robertson. Continue care per his recommendations. Comment Review of Relevant I have reviewed the following items chris (where applicable) has been applied. Labs Laboratory Tests Test 11/26/16 17:55 11/26/16 18:00 11/27/16 04:05 White Blood Count 7.1 x10^3/uL (4.0-11.0) 5.2 x10^3/uL (4.0-11.0) Red Blood Count 4.45 x10^6/uL (3.50-5.40) 3.90 x10^6/uL (3.50-5.40) Hemoglobin 12.4 g/dL (12.0-15.5) 11.1 g/dL (12.0-15.5) Hematocrit 37.3 % (36.0-47.0) 32.7 % (36.0-47.0) Mean Corpuscular Volume 84 fL (79-100) 84 fL (79-100) Mean Corpuscular Hemoglobin 28 pg (25-35) 29 pg (25-35) Mean Corpuscular Hemoglobin Concent 33 g/dL (31-37) 34 g/dL (31-37) Red Cell Distribution Width 15.0 % (11.5-14.5) 14.9 % (11.5-14.5) Platelet Count 483 x10^3/uL (140-400) 402 x10^3/uL (140-400) Neutrophils (%) (Auto) 45 % (31-73) 42 % (31-73) Lymphocytes (%) (Auto) 44 % (24-48) 45 % (24-48) Monocytes (%) (Auto) 8 % (0-9) 10 % (0-9) Eosinophils (%) (Auto) 2 % (0-3) 2 % (0-3) Basophils (%) (Auto) 1 % (0-3) 1 % (0-3) Neutrophils # (Auto) 3.2 x10^3uL (1.8-7.7) 2.2 x10^3uL (1.8-7.7) Lymphocytes # (Auto) 3.1 x10^3/uL (1.0-4.8) 2.3 x10^3/uL (1.0-4.8) Monocytes # (Auto) 0.5 x10^3/uL (0.0-1.1) 0.5 x10^3/uL (0.0-1.1) Eosinophils # (Auto) 0.2 x10^3/uL (0.0-0.7) 0.1 x10^3/uL (0.0-0.7) Basophils # (Auto) 0.1 x10^3/uL (0.0-0.2) 0.1 x10^3/uL (0.0-0.2) Sodium Level 133 mmol/L (136-145) 137 mmol/L (136-145) Potassium Level 3.9 mmol/L (3.5-5.1) 4.3 mmol/L (3.5-5.1) Chloride Level 94 mmol/L (98-107) 102 mmol/L (98-107) Carbon Dioxide Level 29 mmol/L (21-32) 27 mmol/L (21-32) Anion Gap 10 (6-14) 8 (6-14) Blood Urea Nitrogen 10 mg/dL (7-20) 8 mg/dL (7-20) Creatinine 0.8 mg/dL (0.6-1.0) 0.7 mg/dL (0.6-1.0) Estimated GFR (Cockcroft-Gault) 73.4 85.6 BUN/Creatinine Ratio 13 (6-20) Glucose Level 119 mg/dL (70-99) 102 mg/dL (70-99) Lactic Acid Level 1.8 mmol/L (0.4-2.0) Calcium Level 9.7 mg/dL (8.5-10.1) 9.1 mg/dL (8.5-10.1) Total Bilirubin 0.1 mg/dL (0.2-1.0) Aspartate Amino Transf (AST/SGOT) 19 U/L (15-37) Alanine Aminotransferase (ALT/SGPT) 22 U/L (14-59) Alkaline Phosphatase 191 U/L (46-116) Total Protein 8.2 g/dL (6.4-8.2) Albumin 4.0 g/dL (3.4-5.0) Albumin/Globulin Ratio 1.0 (1.0-1.7) Lipase 196 U/L (73-393) Urine Collection Type Unknown Urine Color Yellow Urine Clarity Clear Urine pH 6.0 Urine Specific [place] 1.010 Urine Protein Negative mg/dL (NEG-TRACE) Urine Glucose (UA) Negative mg/dL (NEG) Urine Ketones (Stick) Negative mg/dL (NEG) Urine Blood Moderate (NEG) Urine Nitrite Negative (NEG) Urine Bilirubin Negative (NEG) Urine Urobilinogen Dipstick 0.2 mg/dL (0.2 mg/dL) Urine Leukocyte Esterase Negative (NEG) Urine RBC 1-2 /HPF (0-2) Urine WBC Occ /HPF (0-4) Urine Squamous Epithelial Cells Few /LPF Urine Bacteria Few /HPF (0-FEW) Medications Current Medications Fentanyl Citrate (Fentanyl 2ml Vial) 50 mcg PRN Q15MIN PRN IV PAIN GREATER THAN 3/10 Last administered on 11/26/16 19:41; Start 11/26/16 at 18:00; Stop at 17:59; Status DC Sodium Chloride 1,000 ml @ 1,000 mls/hr Q1H IV Last administered on 11/26/16 18:20; Start 11/26/16 at 18:00; Stop 11/26/16 at 18:59; Status DC Ondansetron HCl (Zofran) 4 mg 1X ONCE IV Last administered on 11/26/16 18:19 ; Start 11/26/16 at 18:00; Stop 11/26/16 at 18:01; Status DC Iohexol (Omnipaque 300 Mg/ml) 60 ml 1X ONCE IV Last administered on 11/26/16 18:39; Start 11/26/16 at 18:15; Stop 11/26/16 at 18:16; Status DC Info (Do NOT chart on this entry -- for MONITORING) 1 each PRN DAILY PRN MC SEE COMMENTS; Start 11/26/16 at 18:15; Stop 11/28/16 at 18:14 Ondansetron HCl (Zofran) 4 mg PRN Q8HRS PRN IV NAUSEA/VOMITING; Start 11/26/16 at 19:45; Stop 11/27/16 at 19:44; Status DC Fentanyl Citrate (Fentanyl 2ml Vial) 50 mcg PRN Q1HR PRN IV PAIN Last administered on 11/27/16 16:15; Start 11/26/16 at 19:45; Stop 11/27/16 at 19:44 ; Status DC Sodium Chloride 1,000 ml @ 100 mls/hr Q10H IV Last administered on 11/27/16 16:17; Start 11/26/16 at 20:00; Stop 11/27/16 at 19:59; Status DC Acetaminophen (Tylenol) 650 mg PRN Q4HRS PRN PO FEVER; Start 11/26/16 at 19:45 ; Stop 11/27/16 at 19:44; Status DC Gabapentin (Neurontin) 600 mg 1X ONCE PO Last administered on 11/26/16 22:14 ; Start 11/26/16 at 21:45; Stop 11/26/16 at 21:46; Status DC Varenicline (Chantix) 1 mg 1X ONCE PO Last administered on 11/26/16 22:15; Start 11/26/16 at 21:45; Stop 11/26/16 at 21:46; Status DC Atorvastatin Calcium (Lipitor) 40 mg 1X ONCE PO Last administered on 22:15; Start 11/26/16 at 21:45; Stop 11/26/16 at 21:46; Status DC Alprazolam (Xanax) 1 mg 1X ONCE PO Last administered on 11/26/16 22:15; Start 11/26/16 at 21:45; Stop 11/26/16 at 21:46; Status DC Tizanidine HCl (Zanaflex) 4 mg 1X ONCE PO Last administered on 11/26/16 22:15 ; Start 11/26/16 at 21:45; Stop 11/26/16 at 21:46; Status DC Potassium Chloride (Klor-Con) 20 meq 1X ONCE PO Last administered on 22:14; Start 11/26/16 at 21:45; Stop 11/26/16 at 21:46; Status DC Alprazolam (Xanax) 1 mg PRN QID PRN PO ANXIETY / AGITATION Last administered on 11/28/16 06:09; Start 11/27/16 at 08:45 Aspirin (Nader Aspirin) 325 mg DAILY PO Last administered on 11/27/16 11:03; Start 11/27/16 at 09:00 Atorvastatin Calcium (Lipitor) 40 mg HS PO Last administered on 11/27/16 20:33 ; Start 11/27/16 at 21:00 Dicyclomine HCl (Bentyl) 20 mg PRN Q6HRS PRN PO GI PAIN Last administered on 20:33; Start 11/27/16 at 08:45 Furosemide (Lasix) 40 mg DAILY PO Last administered on 11/27/16 11:03; Start 11/27/16 at 09:00 Acetaminophen/ Hydrocodone Bitart (Lortab 7.5/325) 1 tab PRN Q6HRS PRN PO PAIN Last administered on 11/27/16 20:35; Start 11/27/16 at 08:45 Levothyroxine Sodium (Synthroid) 150 mcg DAILY07 PO Last administered on 11:31; Start 11/27/16 at 10:30 Magnesium Oxide (Magnesium Oxide) 400 mg QID PO Last administered on 11/27/16 20:33; Start 11/27/16 at 09:00 Tizanidine HCl (Zanaflex) 4 mg QID PO Last administered on 11/27/16 20:34; Start 11/27/16 at 09:00 Non-Formulary Medication 8.5 gm Q4HRS IH ; Start 11/27/16 at 12:00; Stop at 12:00; Status DC Vitamin D (Vitamin D3) 1,000 unit DAILY PO Last administered on 11/27/16 11:03 ; Start 11/27/16 at 09:00 Non-Formulary Medication 1 each BID IH ; Start 11/27/16 at 09:00; Stop 11/27/16 at 09:38; Status DC Gabapentin (Neurontin) 600 mg TID PO Last administered on 11/27/16 20:33; Start 11/27/16 at 09:00 Fish Oil (Fish Oil) 1,000 mg DAILY PO Last administered on 11/27/16 11:03; Start 11/27/16 at 09:00 Pantoprazole Sodium (Protonix) 40 mg DAILYAC PO Last administered on 11/27/16 11:31; Start 11/27/16 at 11:30 Potassium Chloride (Klor-Con) 20 meq TIDWMEALS PO Last administered on 16:18; Start 11/27/16 at 09:00 Vitamin E 400 unit DAILY PO Last administered on 11/27/16 11:03; Start at 09:00 Varenicline (Chantix) 1 mg BID PO Last administered on 11/27/16 20:33; Start 11/27/16 at 09:00 Albuterol Sulfate (Ventolin Neb Soln) 2.5 mg Q4HRS NEB Last administered on 07:11; Start 11/27/16 at 12:00 Budesonide (Pulmicort) 0.5 mg RTBID NEB Last administered on 11/28/16 07:11; Start 11/27/16 at 10:00 Iohexol (Omnipaque 350 Mg/ml) 300 ml 1X ONCE PO Last administered on 13:30; Start 11/27/16 at 12:45; Stop 11/27/16 at 12:48; Status DC Iohexol (Omnipaque 350 Mg/ml) 100 ml STK-MED ONCE .ROUTE ; Start 11/27/16 at 13: 04; Stop 11/27/16 at 13:05; Status DC Iohexol (Omnipaque 300 Mg/ml) 300 ml 1X ONCE PO ; Start 11/27/16 at 13:30; Stop 11/27/16 at 13:31; Status DC Info (Do NOT chart on this entry -- for MONITORING) 1 each PRN DAILY PRN MC SEE COMMENTS; Start 11/27/16 at 13:30; Stop 11/29/16 at 13:29 Iohexol (Omnipaque 350 Mg/ml) 100 ml STK-MED ONCE .ROUTE ; Start 11/27/16 at 13: 24; Stop 11/27/16 at 13:25; Status DC Ondansetron HCl (Zofran) 4 mg PRN Q6HRS PRN IV NAUSEA/VOMITING; Start 11/28/16 at 07:00; Stop 11/28/16 at 07:00; Status DC Fentanyl Citrate (Fentanyl 2ml Vial) 25 mcg PRN Q5MIN PRN IV MILD PAIN; Start 11/28/16 at 07:00; Stop 11/28/16 at 18:00 Fentanyl Citrate (Fentanyl 2ml Vial) 50 mcg PRN Q5MIN PRN IV MODERATE PAIN; Start 11/28/16 at 07:00; Stop 11/28/16 at 18:00 Morphine Sulfate 1 mg PRN Q10MIN PRN IV SEVERE PAIN; Start 11/28/16 at 07:00; Stop 11/28/16 at 18:00 Ringer's Solution 1,000 ml @ 30 mls/hr Q24H IV Last administered on 11/28/16 07:47; Start 11/28/16 at 07:00; Stop 11/28/16 at 18:59 Lidocaine HCl 2 ml PRN 1X PRN ID PRIOR TO IV START; Start 11/28/16 at 07:00; Stop 11/28/16 at 18:00 Hydromorphone HCl (Dilaudid) 0.5 mg PRN Q10MIN PRN IV SEV PAIN, Second choice; Start 11/28/16 at 07:00; Stop 11/28/16 at 18:00 Prochlorperazine Edisylate (Compazine) 5 mg PACU PRN PRN IV NAUSEA, MRX1; Start 11/28/16 at 07:00; Stop 11/28/16 at 18:00 Cefoxitin Sodium 2 gm/Sodium Chloride 100 ml @ 200 mls/hr 1X PREOP IV ; Start 11/27/16 at 19:15; Stop 11/27/16 at 19:15; Status DC Cefoxitin Sodium 2 gm/Sodium Chloride 100 ml @ 200 mls/hr 1X PREOP ONCE IV ; Start 11/28/16 at 06:00; Stop 11/28/16 at 06:29; Status DC Fentanyl Citrate (Fentanyl 2ml Vial) 50 mcg PRN Q2HR PRN IV SEVERE PAIN Last administered on 11/28/16t 07:58; Start 11/27/16 at 23:00 Fentanyl Citrate (Fentanyl 2ml Vial) 25 mcg PRN Q2HR PRN IV MODERATE PAIN; Start 11/27/16 at 23:00 Ondansetron HCl (Zofran) 4 mg PRN Q6HRS PRN IV NAUSEA/VOMITING; Start 11/28/16 at 03:45; Status Cancel Ondansetron HCl (Zofran) 4 mg PRN Q6HRS PRN IV NAUSEA/VOMITING Last administered on 11/28/16t 04:10; Start 11/28/16 at 04:00 Ondansetron HCl (Zofran) 4 mg PRN Q6HRS PRN IV NAUSEA/VOMITING; Start 11/28/16 at 07:00; Stop 11/28/16 at 19:00 Bupivacaine HCl/ Epinephrine Bitart (Marcaine-Epi 0.5%-1:[id number]) 50 ml STK-MED ONCE .ROUTE ; Start 11/28/16 at 07:52; Stop 11/28/16 at 07:53; Status DC Fentanyl Citrate (Fentanyl 2ml Vial) 100 mcg STK-MED ONCE .ROUTE ; Start at 08:39; Stop 11/28/16 at 08:40; Status DC Rocuronium [place] (Zemuron) 100 mg STK-MED ONCE .ROUTE ; Start 11/28/16 at 08: 39; Stop 11/28/16 at 08:40; Status DC Cefoxitin Sodium 100 ml @ As Directed STK-MED ONCE IV ; Start 11/28/16 at 08:39 ; Stop 11/28/16 at 08:40; Status DC Dexamethasone Sodium Phosphate (Decadron) 20 mg STK-MED ONCE .ROUTE ; Start at 08:39; Stop 11/28/16 at 08:40; Status DC Ondansetron HCl (Zofran) 4 mg STK-MED ONCE .ROUTE ; Start 11/28/16 at 08:39; Stop 11/28/16 at 08:40; Status DC Propofol 20 ml @ As Directed STK-MED ONCE IV ; Start 11/28/16 at 08:39; Stop at 08:40; Status DC Lidocaine HCl (Lidocaine Pf 2% Vial) 5 ml STK-MED ONCE .ROUTE ; Start 11/28/16 at 08:39; Stop 11/28/16 at 08:40; Status DC Midazolam HCl (Versed) 2 mg STK-MED ONCE .ROUTE ; Start 11/28/16 at 09:00; Stop 11/28/16 at 09:01; Status DC Active Scripts Active Hydrocodone-Apap 7.5-325 (Hydrocodone Bit/Acetaminophen) 1 Each Tablet 1 Tab PO PRN Q6HRS PRN 30 Days Levothyroxine Sodium 150 Mcg Tablet 1 Tab PO DAILY Bentyl (Dicyclomine Hcl) 10 Mg Capsule 20 Mg PO Q6HRS Reported Chantix (Varenicline Tartrate) 1 Mg Tablet 1 Mg PO BID Atorvastatin Calcium 20 Mg Tablet 40 Mg PO HS Vitamin D (Cholecalciferol (Vitamin D3)) 1,000 Unit Capsule 1,000 Unit PO DAILY Vitamin E 400 Unit Capsule 400 Unit PO DAILY Fish Oil ([place]-3 Fatty Acids) 500 Mg Capsule 500 Mg PO DAILY Magnesium Oxide 400 Mg Tablet 400 Mg PO QID Xanax (Alprazolam) 1 Mg Tablet 1 Mg PO QID Lasix (Furosemide) 40 Mg Tablet 40 Mg PO DAILY Aspirin 325 Mg Tablet 325 Mg PO DAILY Gabapentin 600 Mg Tablet 600 Mg PO TID Tizanidine Hcl 4 Mg Tablet 4 Mg PO QID Estradiol 1 Each Patch.tdwk 1 Each TD DAILY07 Omeprazole 20 Mg Tablet.dr 20 Mg PO DAILY07 Klor-Con (Potassium Chloride) 20 Meq Packet 20 Meq PO TID Proair Hfa Inhaler (Albuterol Sulfate) 8.5 Gm Hfa.aer.ad 8.5 Gm IH Q4HRS Advair 500-50 Diskus (Fluticasone/Salmeterol) 1 Each Disk.w.dev 1 Each IH BID Vitals/I & O Vital Sign - Last 24 Hours 11/27/16 11/27/16 11/27/16 11/27/16 11:00 11:13 11:31 12:31 Temp 98.2 98.2 Pulse 72 Resp 18 18 B/P (MAP) 133/65 (87) Pulse Ox 96 95 93 96 O2 Delivery Room Air Room Air Room Air 11/27/16 11/27/16 11/27/16 11/27/16 15:00 15:17 16:15 16:45 Temp 98.4 98.4 Pulse 93 Resp 18 18 B/P (MAP) 122/81 (95) Pulse Ox 96 93 O2 Delivery Room Air Room Air Room Air Room Air 11/27/16 11/27/16 11/27/16 11/27/16 19:00 20:00 20:20 20:23 Temp 97.7 97.7 Pulse 79 Resp 18 B/P (MAP) 103/56 (72) Pulse Ox 91 97 97 O2 Delivery Nasal Cannula Room Air Nasal Cannula Nasal Cannula O2 Flow Rate 2.0 2.0 2.0 11/27/16 11/27/16 11/27/16 11/27/16 20:35 21:35 23:10 23:13 Pulse 79 Resp 16 16 18 B/P (MAP) 118/62 (80) O2 Delivery Nasal Cannula Room Air Nasal Cannula O2 Flow Rate 2.0 2.0 11/27/16 11/28/16 11/28/16 11/28/16 23:58 03:00 03:50 06:07 Temp 97.5 97.7 97.5 97.7 Pulse 74 80 Resp 18 18 16 16 B/P (MAP) 90/61 (71) 112/70 (84) Pulse Ox 93 96 O2 Delivery Room Air Nasal Cannula Room Air Nasal Cannula O2 Flow Rate 2.0 2.0 11/28/16 11/28/16 11/28/16 11/28/16 07:00 07:00 07:29 07:58 Temp 97.7 97.7 Pulse 79 Resp 16 16 15 B/P (MAP) 146/69 (94) Pulse Ox 97 97 95 96 O2 Delivery Room Air Nasal Cannula Nasal Cannula Room Air O2 Flow Rate 2.0 2.0 3.5 2.0 11/28/16 08:14 Temp 99.6 99.6 Pulse 90 Resp 23 B/P (MAP) 136/76 Pulse Ox 98 O2 Delivery Room Air O2 Flow Rate 2.0 NICOLAS HICKS MD Nov 28, 2016 09:29
[2016-11-28] MEDS ORDERED: SEVOFLURANE > 120 MINUTES. IH ONE (09:59)
--- NOTE | 2016-11-28 11:30 | PDOC ---
Objective: Objective: Out of room, reviewed Dr. Robertson's notes. Vital Signs: Vital Signs Date Time Temp Pulse Resp B/P (MAP) Pulse Ox O2 Delivery O2 Flow Rate FiO2 11/28/16 08:14 99.6 90 23 136/76 98 Room Air 2.0 99.6 Imaging: SBS 11/27/16 IMPRESSION: No evidence of small bowel obstruction. PE: no exam A/P: Parastomal hernia, VIH Abd pain, n/v, decreased ostomy output -- Surgical repair planned today. Will follow post-operatively. VIJAY BRIONES Nov 28, 2016 11:30
[2016-11-28] MEDS ORDERED: NEOSTIGMINE 10 MG/10 ML VIAL. ONE (12:18)
[2016-11-28] MEDS ORDERED: GLYCOPYRROLATE 1 MG/5 ML VIAL. ONE (12:18)
--- NOTE | 2016-11-28 13:10 | RAD ---
Indication postop film in the operating room. Protocol study. Hernia repair., Counts are reportedly correct Single KUB was obtained. Postoperative changes are noted in the lumbar spine as well as a total left hip prosthesis. [place] drain noted. An unexpected finding is not seen. IMPRESSION: Postop KUB. No unexpected finding seen.
[2016-11-28] MEDS: IV RINGERS,LACTATED 1000ML 1,000 ML IV SCH ×2 (13:26→23:26)
[2016-11-28] MEDS: HYDROmorphone 2 MG/ML VIAL IV PRN ×4 (13:27→14:11)
[2016-11-28] MEDS ORDERED: HYDROmorphone 2 MG/ML VIAL ONE (13:27)
[2016-11-28] MEDS ORDERED: NALOXONE 0.4 MG/ML VIAL. IV PRN (13:30)
[2016-11-28] MEDS ORDERED: 0.9 % SODIUM CHLORIDE 10 ML DISP.SYRIN. IV PRN (13:30)
[2016-11-28] MEDS ORDERED: PROCHLORPERAZINE 10 MG/2 ML VIAL. ONE (13:37)
--- NOTE | 2016-11-28 13:46 | PDOC4 ---
OPERATIVE NOTE Date: Date: Nov 28, 2016 Pre-Op Diagnosis: Parastomal hernia, ventral incisional hernia Post-Op Diagnosis: same Procedure Performed: Exploratory laparotomy, lysis of adhesions, revision of ileostomy, repair of parastomal hernia, repair of incisional hernia Surgeon: Tavares Kauffman Anesthesia Type: GETA Blood Loss: 100 Specimans Obtained: stoma Findings: extensive adhesions, incisional hernia, parastomal hernia, normal bowel Complications: none Operative Note: After obtaining informed consent, patient was taken to the OR, induced under GETA, and prepped in the usual manner. Previous midline incision was reopened using cautery. An incisional hernia was encountered. It was opened and repaired at the end of the procedure. The abdomen was locked in and an extensive lysis of adhesions was performed which was the majority of the OR time. An serosal tear, inherent to the procedure, was repair with 3 0 vicryl. The remaining bowel otherwise was viable and normal. Ureters were identified bilaterally and without injury. The ileostomy was dissected out and amputated with HEIDI stapler. It was brought through good tissue in the right upper quadrant for a new ileostomy (pt preferred upper abdominal ostomy). The parastomal hernia was repaired with 0 PDS suture. Copious irrigation. Fascia repaired with 0 PDS. Skin repaired in both areas using 3 0 vicryl and 4 0 monocryl. Dressing applied. Ileostomy matured using 3 0 chromic. Ostomy bag placed. All counts correct. No immediate complications. TAVARES KAUFFMAN MD Nov 28, 2016 13:46
[2016-11-28] MEDS: IV NORMAL SALINE 1000ML BAG 1,000 ML IV SCH (17:14)
[2016-11-28] MEDS: ATORVASTATIN CALCIUM 20 MG TABLET PO SCH (20:03)
[2016-11-29] MEDS: ALBUTEROL SULFATE 2.5 MG/3 ML NEBU. NEB SCH ×7 (00:17→23:02)
[2016-11-29 03:00] VITALS: BP 117/63
[2016-11-29] MEDS: ONDANSETRON PF 4 MG/2 ML VIAL. IV PRN ×2 (04:56→12:25)
[2016-11-29] MEDS: ALPRAZolam 1 MG TABLET PO PRN ×4 (05:00→23:49)
[2016-11-29 05:32] LABS: CALCIUM 8.8 mg/dL (8.5-10.1); CREATININE 0.9 mg/dL (0.6-1.0); GFR 64.1
[2016-11-29 07:00] VITALS: BP 115/58
[2016-11-29] MEDS: BUDESONIDE 0.5 MG/2 ML NEBU. NEB SCH ×2 (07:02→20:44)
[2016-11-29] MEDS: LEVOTHYROXINE 150 MCG TABLET PO SCH (07:31)
[2016-11-29] MEDS: PANTOPRAZOLE 40 MG TABLET.DR. PO SCH (07:31)
[2016-11-29] MEDS: VITAMIN E 200 UNIT CAPSULE. PO SCH (08:23)
[2016-11-29] MEDS: ENOXAPARIN 40 MG/0.4 ML SYRINGE. SQ SCH (08:23)
[2016-11-29] MEDS: GABAPENTIN 300 MG CAPSULE. PO SCH ×3 (08:24→21:18)
[2016-11-29] MEDS: POTASSIUM CHLORIDE 20 MEQ TABLET.ER. PO SCH ×3 (08:24→17:28)
[2016-11-29] MEDS: VARENICLINE 0.5 MG TABLET. PO SCH ×2 (08:24→21:18)
[2016-11-29] MEDS: ASPIRIN 325 MG TABLET PO SCH (08:24)
[2016-11-29] MEDS: CHOLECALCIFEROL (VITAMIN D3) 1,000 UNIT TABLET PO SCH (08:24)
[2016-11-29] MEDS: OMEGA-3 FATTY ACIDS/FISH OIL 1,000 MG CAPSULE. PO SCH (08:24)
[2016-11-29] MEDS: FUROSEMIDE 40 MG TABLET. PO SCH (08:25)
[2016-11-29] MEDS: tiZANidine 4 MG TABLET. PO SCH ×4 (08:25→21:18)
[2016-11-29] MEDS: MAGNESIUM OXIDE 400 MG TABLET PO SCH ×4 (08:25→21:17)
--- NOTE | 2016-11-29 08:26 | PDOC ---
SURGICAL PROGRESS NOTE Subjective Pt with c/o CHRISTINA, some incisional pain, coughing up phlegm, bethany clears Vital Signs Vital Signs Date Time Temp Pulse Resp B/P (MAP) Pulse Ox O2 Delivery O2 Flow Rate FiO2 11/29/16 07:37 16 Nasal Cannula 3.5 11/29/16 07:03 92 11/29/16 07:00 98.8 98 115/58 (77) 98.8 General: Alert, Oriented X3, Cooperative, mild distress Abdomen: Soft, Other (appropriately TTP, dressing intact, ileostomy purple, mildly swollen but peristalsis and viable with flatus and stool) Labs Laboratory Tests Test 11/29/16 04:27 Sodium Level 136 mmol/L (136-145) Potassium Level 4.0 mmol/L (3.5-5.1) Chloride Level 101 mmol/L (98-107) Carbon Dioxide Level 26 mmol/L (21-32) Anion Gap 9 (6-14) Blood Urea Nitrogen 8 mg/dL (7-20) Creatinine 0.9 mg/dL (0.6-1.0) Estimated GFR (Cockcroft-Gault) 64.1 Glucose Level 116 mg/dL (70-99) Calcium Level 8.8 mg/dL (8.5-10.1) Laboratory Tests Test 11/29/16 04:27 Sodium Level 136 mmol/L (136-145) Potassium Level 4.0 mmol/L (3.5-5.1) Chloride Level 101 mmol/L (98-107) Carbon Dioxide Level 26 mmol/L (21-32) Anion Gap 9 (6-14) Blood Urea Nitrogen 8 mg/dL (7-20) Creatinine 0.9 mg/dL (0.6-1.0) Estimated GFR (Cockcroft-Gault) 64.1 Glucose Level 116 mg/dL (70-99) Calcium Level 8.8 mg/dL (8.5-10.1) I have reviewed the following KUB no FB Problem List Problems Medical Problems: (1) Abdominal pain Status: Acute Assessment/Plan s/p hernia repair cont pain control ibuprofen for CHRISTINA Problems: LETICIA KAUFFMAN MD Nov 29, 2016 08:26
[2016-11-29] MEDS: IBUPROFEN 200 MG TABLET. PO PRN ×2 (08:46→17:32)
[2016-11-29] MEDS: IV RINGERS,LACTATED 1000ML 1,000 ML IV SCH ×2 (08:50→19:26)
--- NOTE | 2016-11-29 09:07 | PDOC ---
PROGRESS NOTES Subjective Subjective Patient states she feel "a lot better". Pain controlled, tolerating clears. Objective Objective Vital Signs Date Time Temp Pulse Resp B/P (MAP) Pulse Ox O2 Delivery O2 Flow Rate FiO2 11/29/16 07:37 16 Nasal Cannula 3.5 11/29/16 07:03 92 11/29/16 07:00 98.8 98 115/58 (77) 98.8 Physical Exam Abdomen: Normal bowel sounds, Soft, Other (small amount of gas in ostomy bag) Heart: Regular rate, No murmurs Extremities: No edema General: Alert, Oriented X3, No acute distress Lungs: Other (BS mildly decreased throughout but CTA, no wheezes heard) Assessment Assessment Problems Medical Problems: (1) Abdominal pain Status: Acute Plan Plan of Care 1. POD #1 repair of hernias - doing well. Increase activity level today, continue post-op care as per Dr Robertson. 2. COPD - stable, continue nebs. Comment Review of Relevant I have reviewed the following items chris (where applicable) has been applied. Labs Laboratory Tests Test 11/29/16 04:27 Sodium Level 136 mmol/L (136-145) Potassium Level 4.0 mmol/L (3.5-5.1) Chloride Level 101 mmol/L (98-107) Carbon Dioxide Level 26 mmol/L (21-32) Anion Gap 9 (6-14) Blood Urea Nitrogen 8 mg/dL (7-20) Creatinine 0.9 mg/dL (0.6-1.0) Estimated GFR (Cockcroft-Gault) 64.1 Glucose Level 116 mg/dL (70-99) Calcium Level 8.8 mg/dL (8.5-10.1) Laboratory Tests Test 11/29/16 04:27 Sodium Level 136 mmol/L (136-145) Potassium Level 4.0 mmol/L (3.5-5.1) Chloride Level 101 mmol/L (98-107) Carbon Dioxide Level 26 mmol/L (21-32) Anion Gap 9 (6-14) Blood Urea Nitrogen 8 mg/dL (7-20) Creatinine 0.9 mg/dL (0.6-1.0) Estimated GFR (Cockcroft-Gault) 64.1 Glucose Level 116 mg/dL (70-99) Calcium Level 8.8 mg/dL (8.5-10.1) Medications Current Medications Fentanyl Citrate (Fentanyl 2ml Vial) 50 mcg PRN Q15MIN PRN IV PAIN GREATER THAN 3/10 Last administered on 11/26/16 19:41; Start 11/26/16 at 18:00; Stop at 17:59; Status DC Sodium Chloride 1,000 ml @ 1,000 mls/hr Q1H IV Last administered on 11/26/16 18:20; Start 11/26/16 at 18:00; Stop 11/26/16 at 18:59; Status DC Ondansetron HCl (Zofran) 4 mg 1X ONCE IV Last administered on 11/26/16 18:19 ; Start 11/26/16 at 18:00; Stop 11/26/16 at 18:01; Status DC Iohexol (Omnipaque 300 Mg/ml) 60 ml 1X ONCE IV Last administered on 11/26/16 18:39; Start 11/26/16 at 18:15; Stop 11/26/16 at 18:16; Status DC Info (Do NOT chart on this entry -- for MONITORING) 1 each PRN DAILY PRN MC SEE COMMENTS; Start 11/26/16 at 18:15; Stop 11/28/16 at 18:14; Status DC Ondansetron HCl (Zofran) 4 mg PRN Q8HRS PRN IV NAUSEA/VOMITING; Start 11/26/16 at 19:45; Stop 11/27/16 at 19:44; Status DC Fentanyl Citrate (Fentanyl 2ml Vial) 50 mcg PRN Q1HR PRN IV PAIN Last administered on 11/27/16 16:15; Start 11/26/16 at 19:45; Stop 11/27/16 at 19:44 ; Status DC Sodium Chloride 1,000 ml @ 100 mls/hr Q10H IV Last administered on 11/27/16 16:17; Start 11/26/16 at 20:00; Stop 11/27/16 at 19:59; Status DC Acetaminophen (Tylenol) 650 mg PRN Q4HRS PRN PO FEVER; Start 11/26/16 at 19:45 ; Stop 11/27/16 at 19:44; Status DC Gabapentin (Neurontin) 600 mg 1X ONCE PO Last administered on 11/26/16 22:14 ; Start 11/26/16 at 21:45; Stop 11/26/16 at 21:46; Status DC Varenicline (Chantix) 1 mg 1X ONCE PO Last administered on 11/26/16 22:15; Start 11/26/16 at 21:45; Stop 11/26/16 at 21:46; Status DC Atorvastatin Calcium (Lipitor) 40 mg 1X ONCE PO Last administered on 22:15; Start 11/26/16 at 21:45; Stop 11/26/16 at 21:46; Status DC Alprazolam (Xanax) 1 mg 1X ONCE PO Last administered on 11/26/16 22:15; Start 11/26/16 at 21:45; Stop 11/26/16 at 21:46; Status DC Tizanidine HCl (Zanaflex) 4 mg 1X ONCE PO Last administered on 11/26/16 22:15 ; Start 11/26/16 at 21:45; Stop 11/26/16 at 21:46; Status DC Potassium Chloride (Klor-Con) 20 meq 1X ONCE PO Last administered on 22:14; Start 11/26/16 at 21:45; Stop 11/26/16 at 21:46; Status DC Alprazolam (Xanax) 1 mg PRN QID PRN PO ANXIETY / AGITATION Last administered on 11/29/16 05:00; Start 11/27/16 at 08:45 Aspirin (Nader Aspirin) 325 mg DAILY PO Last administered on 11/29/16 08:24; Start 11/27/16 at 09:00 Atorvastatin Calcium (Lipitor) 40 mg HS PO Last administered on 11/28/16 20:03 ; Start 11/27/16 at 21:00 Dicyclomine HCl (Bentyl) 20 mg PRN Q6HRS PRN PO GI PAIN Last administered on 20:33; Start 11/27/16 at 08:45 Furosemide (Lasix) 40 mg DAILY PO Last administered on 11/29/16 08:25; Start 11/27/16 at 09:00 Acetaminophen/ Hydrocodone Bitart (Lortab 7.5/325) 1 tab PRN Q6HRS PRN PO PAIN Last administered on 11/27/16 20:35; Start 11/27/16 at 08:45 Levothyroxine Sodium (Synthroid) 150 mcg DAILY07 PO Last administered on 07:31; Start 11/27/16 at 10:30 Magnesium Oxide (Magnesium Oxide) 400 mg QID PO Last administered on 11/29/16 08:25; Start 11/27/16 at 09:00 Tizanidine HCl (Zanaflex) 4 mg QID PO Last administered on 11/29/16 08:25; Start 11/27/16 at 09:00 Non-Formulary Medication 8.5 gm Q4HRS IH ; Start 11/27/16 at 12:00; Stop at 12:00; Status DC Vitamin D (Vitamin D3) 1,000 unit DAILY PO Last administered on 11/29/16 08:24 ; Start 11/27/16 at 09:00 Non-Formulary Medication 1 each BID IH ; Start 11/27/16 at 09:00; Stop 11/27/16 at 09:38; Status DC Gabapentin (Neurontin) 600 mg TID PO Last administered on 11/29/16 08:24; Start 11/27/16 at 09:00 Fish Oil (Fish Oil) 1,000 mg DAILY PO Last administered on 11/29/16 08:24; Start 11/27/16 at 09:00 Pantoprazole Sodium (Protonix) 40 mg DAILYAC PO Last administered on 11/29/16 07:31; Start 11/27/16 at 11:30 Potassium Chloride (Klor-Con) 20 meq TIDWMEALS PO Last administered on 08:24; Start 11/27/16 at 09:00 Vitamin E 400 unit DAILY PO Last administered on 11/29/16 08:23; Start at 09:00 Varenicline (Chantix) 1 mg BID PO Last administered on 11/29/16 08:24; Start 11/27/16 at 09:00 Albuterol Sulfate (Ventolin Neb Soln) 2.5 mg Q4HRS NEB Last administered on 07:02; Start 11/27/16 at 12:00 Budesonide (Pulmicort) 0.5 mg RTBID NEB Last administered on 11/29/16 07:02; Start 11/27/16 at 10:00 Iohexol (Omnipaque 350 Mg/ml) 300 ml 1X ONCE PO Last administered on 13:30; Start 11/27/16 at 12:45; Stop 11/27/16 at 12:48; Status DC Iohexol (Omnipaque 350 Mg/ml) 100 ml STK-MED ONCE .ROUTE ; Start 11/27/16 at 13: 04; Stop 11/27/16 at 13:05; Status DC Iohexol (Omnipaque 300 Mg/ml) 300 ml 1X ONCE PO ; Start 11/27/16 at 13:30; Stop 11/27/16 at 13:31; Status DC Info (Do NOT chart on this entry -- for MONITORING) 1 each PRN DAILY PRN MC SEE COMMENTS; Start 11/27/16 at 13:30; Stop 11/29/16 at 13:29 Iohexol (Omnipaque 350 Mg/ml) 100 ml STK-MED ONCE .ROUTE ; Start 11/27/16 at 13: 24; Stop 11/27/16 at 13:25; Status DC Ondansetron HCl (Zofran) 4 mg PRN Q6HRS PRN IV NAUSEA/VOMITING; Start 11/28/16 at 07:00; Stop 11/28/16 at 07:00; Status DC Fentanyl Citrate (Fentanyl 2ml Vial) 25 mcg PRN Q5MIN PRN IV MILD PAIN; Start 11/28/16 at 07:00; Stop 11/28/16 at 18:00; Status DC Fentanyl Citrate (Fentanyl 2ml Vial) 50 mcg PRN Q5MIN PRN IV MODERATE PAIN Last administered on 11/28/16 13:50; Start 11/28/16 at 07:00; Stop 11/28/16 at 18:00; Status DC Morphine Sulfate 1 mg PRN Q10MIN PRN IV SEVERE PAIN; Start 11/28/16 at 07:00; Stop 11/28/16 at 18:00; Status DC Ringer's Solution 1,000 ml @ 30 mls/hr Q24H IV Last administered on 11/28/16 07:47; Start 11/28/16 at 07:00; Stop 11/28/16 at 18:59; Status DC Lidocaine HCl 2 ml PRN 1X PRN ID PRIOR TO IV START; Start 11/28/16 at 07:00; Stop 11/28/16 at 18:00; Status DC Hydromorphone HCl (Dilaudid) 0.5 mg PRN Q10MIN PRN IV SEV PAIN, Second choice Last administered on 11/28/16 14:11; Start 11/28/16 at 07:00; Stop 11/28/16 at 18:00; Status DC Prochlorperazine Edisylate (Compazine) 5 mg PACU PRN PRN IV NAUSEA, MRX1 Last administered on 11/28/16 13:42; Start 11/28/16 at 07:00; Stop 11/28/16 at 18:00 ; Status DC Cefoxitin Sodium 2 gm/Sodium Chloride 100 ml @ 200 mls/hr 1X PREOP IV ; Start 11/27/16 at 19:15; Stop 11/27/16 at 19:15; Status DC Cefoxitin Sodium 2 gm/Sodium Chloride 100 ml @ 200 mls/hr 1X PREOP ONCE IV Last administered on 11/28/16 09:15; Start 11/28/16 at 06:00; Stop 11/28/16 at 06:29; Status DC Fentanyl Citrate (Fentanyl 2ml Vial) 50 mcg PRN Q2HR PRN IV SEVERE PAIN Last administered on 11/28/16 07:58; Start 11/27/16 at 23:00 Fentanyl Citrate (Fentanyl 2ml Vial) 25 mcg PRN Q2HR PRN IV MODERATE PAIN; Start 11/27/16 at 23:00 Ondansetron HCl (Zofran) 4 mg PRN Q6HRS PRN IV NAUSEA/VOMITING; Start 11/28/16 at 03:45; Status Cancel Ondansetron HCl (Zofran) 4 mg PRN Q6HRS PRN IV NAUSEA/VOMITING Last administered on 11/29/16 04:56; Start 11/28/16 at 04:00 Ondansetron HCl (Zofran) 4 mg PRN Q6HRS PRN IV NAUSEA/VOMITING; Start 11/28/16 at 07:00; Stop 11/28/16 at 19:00; Status DC Bupivacaine HCl/ Epinephrine Bitart (Marcaine-Epi 0.5%-[id number]) 50 ml STK-MED ONCE .ROUTE ; Start 11/28/16 at 07:52; Stop 11/28/16 at 07:53; Status DC Fentanyl Citrate (Fentanyl 2ml Vial) 100 mcg STK-MED ONCE .ROUTE ; Start at 08:39; Stop 11/28/16 at 08:40; Status DC Rocuronium [place] (Zemuron) 100 mg STK-MED ONCE .ROUTE ; Start 11/28/16 at 08: 39; Stop 11/28/16 at 08:40; Status DC Cefoxitin Sodium 100 ml @ As Directed STK-MED ONCE IV ; Start 11/28/16 at 08:39 ; Stop 11/28/16 at 08:40; Status DC Dexamethasone Sodium Phosphate (Decadron) 20 mg STK-MED ONCE .ROUTE ; Start at 08:39; Stop 11/28/16 at 08:40; Status DC Ondansetron HCl (Zofran) 4 mg STK-MED ONCE .ROUTE ; Start 11/28/16 at 08:39; Stop 11/28/16 at 08:40; Status DC Propofol 20 ml @ As Directed STK-MED ONCE IV ; Start 11/28/16 at 08:39; Stop at 08:40; Status DC Lidocaine HCl (Lidocaine Pf 2% Vial) 5 ml STK-MED ONCE .ROUTE ; Start 11/28/16 at 08:39; Stop 11/28/16 at 08:40; Status DC Midazolam HCl (Versed) 2 mg STK-MED ONCE .ROUTE ; Start 11/28/16 at 09:00; Stop 11/28/16 at 09:01; Status DC Fentanyl Citrate (Fentanyl 5ml Vial) 250 mcg STK-MED ONCE .ROUTE ; Start at 09:28; Stop 11/28/16 at 09:29; Status DC Sevoflurane (Ultane) 90 ml STK-MED ONCE IH ; Start 11/28/16 at 09:59; Stop 11/28 at 10:00; Status DC Glycopyrrolate (Robinul) 1 mg STK-MED ONCE .ROUTE ; Start 11/28/16 at 12:18; Stop 11/28/16 at 12:19; Status DC Neostigmine Methylsulfate (Bloxiverz) 10 mg STK-MED ONCE .ROUTE ; Start at 12:18; Stop 11/28/16 at 12:19; Status DC Fentanyl Citrate (Fentanyl 2ml Vial) 100 mcg STK-MED ONCE .ROUTE ; Start at 13:16; Stop 11/28/16 at 13:17; Status DC Hydromorphone HCl (Dilaudid) 2 mg STK-MED ONCE .ROUTE ; Start 11/28/16 at 13:27 ; Stop 11/28/16 at 13:28; Status DC Enoxaparin Sodium (Lovenox 40mg Syringe) 40 mg Q24H SQ Last administered on 08:23; Start 11/29/16 at 08:00 Sodium Chloride (Normal Saline Flush) 3 ml QSHIFT PRN IV AFTER MEDS AND BLOOD DRAWS; Start 11/28/16 at 13:30 Ringer's Solution 1,000 ml @ 100 mls/hr Q10H IV ; Start 11/28/16 at 13:26 Naloxone HCl (Narcan) 0.4 mg PRN Q2MIN PRN IV SEE INSTRUCTIONS; Start 11/28/16 at 13:30 Sodium Chloride 1,000 ml @ 25 mls/hr Q24H IV Last administered on 11/28/16 17 :14; Start 11/28/16 at 13:26 Hydromorphone HCl 30 ml @ 0 mls/hr CONT PRN PRN IV PROTOCOL Last administered on 11/29/16 07:37; Start 11/28/16 at 13:30 Ondansetron HCl (Zofran) 4 mg PRN Q6HRS PRN IV NAUESA, 1ST CHOICE; Start at 13:30 Fentanyl Citrate (Fentanyl 2ml Vial) 100 mcg STK-MED ONCE .ROUTE ; Start at 13:36; Stop 11/28/16 at 13:37; Status DC Prochlorperazine Edisylate (Compazine) 10 mg STK-MED ONCE .ROUTE ; Start at 13:37; Stop 11/28/16 at 13:38; Status DC Ibuprofen (Motrin) 200 mg PRN Q6HRS PRN PO INFLAMMATION Last administered on 08:46; Start 11/29/16 at 08:30 Active Scripts Active Hydrocodone-Apap 7.5-325 (Hydrocodone Bit/Acetaminophen) 1 Each Tablet 1 Tab PO PRN Q6HRS PRN 30 Days Levothyroxine Sodium 150 Mcg Tablet 1 Tab PO DAILY Bentyl (Dicyclomine Hcl) 10 Mg Capsule 20 Mg PO Q6HRS Reported Chantix (Varenicline Tartrate) 1 Mg Tablet 1 Mg PO BID Atorvastatin Calcium 20 Mg Tablet 40 Mg PO HS Vitamin D (Cholecalciferol (Vitamin D3)) 1,000 Unit Capsule 1,000 Unit PO DAILY Vitamin E 400 Unit Capsule 400 Unit PO DAILY Fish Oil ([place]-3 Fatty Acids) 500 Mg Capsule 500 Mg PO DAILY Magnesium Oxide 400 Mg Tablet 400 Mg PO QID Xanax (Alprazolam) 1 Mg Tablet 1 Mg PO QID Lasix (Furosemide) 40 Mg Tablet 40 Mg PO DAILY Aspirin 325 Mg Tablet 325 Mg PO DAILY Gabapentin 600 Mg Tablet 600 Mg PO TID Tizanidine Hcl 4 Mg Tablet 4 Mg PO QID Estradiol 1 Each Patch.tdwk 1 Each TD DAILY07 Omeprazole 20 Mg Tablet.dr 20 Mg PO DAILY07 Klor-Con (Potassium Chloride) 20 Meq Packet 20 Meq PO TID Proair Hfa Inhaler (Albuterol Sulfate) 8.5 Gm Hfa.aer.ad 8.5 Gm IH Q4HRS Advair 500-50 Diskus (Fluticasone/Salmeterol) 1 Each Disk.w.dev 1 Each IH BID Vitals/I & O Vital Sign - Last 24 Hours 11/28/16 11/28/16 11/28/16 11/28/16 12:33 12:33 12:48 13:03 Temp 100.7 100.7 Pulse 73 72 72 Resp 16 18 17 B/P (MAP) 150/85 139/76 146/76 Pulse Ox 100 100 98 O2 Delivery Simple Mask Mask Simple Mask Nasal Cannula O2 Flow Rate 10 10 10 3 11/28/16 11/28/16 11/28/16 11/28/16 13:18 13:33 13:48 14:03 Pulse 72 75 83 88 Resp 19 13 14 12 B/P (MAP) 134/75 133/67 125/71 112/65 Pulse Ox 99 98 96 95 O2 Delivery Nasal Cannula Nasal Cannula Nasal Cannula Nasal Cannula O2 Flow Rate 3 3 3 3 911/28/16 11/28/16 11/28/16 14:12 14:18 14:45 14:55 Pulse 89 90 Resp 14 16 B/P (MAP) 125/63 119/69 (86) Pulse Ox 98 94 95 O2 Delivery Nasal Cannula Nasal Cannula 2.0 Nasal Cannula O2 Flow Rate 3 3 3.5 11/28/16 11/28/16 11/28/16 11/28/16 15:15 15:45 16:00 16:15 Pulse 94 92 92 95 Resp 16 16 16 16 B/P (MAP) 116/71 (86) 122/62 (82) 111/72 (85) 111/64 (80) Pulse Ox 96 94 95 95 O2 Delivery Room Air Nasal Cannula Nasal Cannula Nasal Cannula O2 Flow Rate 2.0 2.0 2.0 2.0 11/28/16 11/28/16 11/28/16 11/28/16 16:30 17:00 17:15 18:00 Temp 98.1 98.1 Pulse 91 91 Resp 16 16 B/P (MAP) 116/67 (83) 119/60 (79) Pulse Ox 94 94 95 95 O2 Delivery Nasal Cannula Nasal Cannula Nasal Cannula Nasal Cannula O2 Flow Rate 2.0 2.0 3.5 3.5 11/28/16 11/28/16 11/28/16 11/28/16 19:41 19:41 19:42 20:00 Temp 98.1 98.1 Pulse 93 Resp 18 B/P (MAP) 125/68 (87) Pulse Ox 94 95 95 O2 Delivery Nasal Cannula Nasal Cannula Nasal Cannula Nasal Cannula O2 Flow Rate 2.0 3.0 3.0 3.5 11/28/16 11/29/16 11/29/16 11/29/16 23:16 00:17 03:00 07:00 Temp 98.1 97.7 98.8 98.1 97.7 98.8 Pulse 97 93 98 Resp 18 18 16 B/P (MAP) 126/70 (88) 117/63 (81) 115/58 (77) Pulse Ox 91 95 92 91 O2 Delivery Nasal Cannula Nasal Cannula Nasal Cannula Nasal Cannula O2 Flow Rate 2.0 3.0 2.0 2.0 11/29/16 11/29/16 07:03 07:37 Resp 16 Pulse Ox 92 O2 Delivery Nasal Cannula Nasal Cannula O2 Flow Rate 2.0 3.5 NICOLAS HICKS MD Nov 29, 2016 09:07
[2016-11-29 10:40] LABS: BASO % 0 % (0-3); EOS % 0 % (0-3); HEMATOCRIT 27.9 % (36.0-47.0); LYMPH # 1.9 x10^3/uL (1.0-4.8); LYMPH % 19 % (24-48); MEAN CORPUSCULAR HEMOGLOBIN 27 pg (25-35); MEAN CORPUSCULAR HGB CONC 32 g/dL (31-37); MEAN CORPUSCULAR VOLUME 85 fL (79-100); MONO % 6 % (0-9); NEUT % 75 % (31-73); PLATELET COUNT 316 x10^3/uL (140-400); RED BLOOD COUNT 3.28 x10^6/uL (3.50-5.40); RED CELL DISTRIBUTION WIDTH 14.9 % (11.5-14.5); WHITE BLOOD COUNT 10.2 x10^3/uL (4.0-11.0)
[2016-11-29 11:00] VITALS: BP 99/53
--- NOTE | 2016-11-29 11:43 | PDOC ---
Subjective: Subjective: "My pain isn't too good." Wonders if she needs her esophagus stretched again. Objective: Vital Signs: Vital Signs Date Time Temp Pulse Resp B/P (MAP) Pulse Ox O2 Delivery O2 Flow Rate FiO2 11/29/16 11:00 98.1 86 18 99/53 (68) 93 Nasal Cannula 2.0 98.1 Labs: Laboratory Tests Test 11/29/16 04:27 11/29/16 10:10 Sodium Level 136 mmol/L Potassium Level 4.0 mmol/L Chloride Level 101 mmol/L Carbon Dioxide Level 26 mmol/L Anion Gap 9 Blood Urea Nitrogen 8 mg/dL Creatinine 0.9 mg/dL Estimated GFR (Cockcroft-Gault) 64.1 Glucose Level 116 mg/dL Calcium Level 8.8 mg/dL White Blood Count 10.2 x10^3/uL Red Blood Count 3.28 x10^6/uL Hemoglobin 9.0 g/dL Hematocrit 27.9 % Mean Corpuscular Volume 85 fL Mean Corpuscular Hemoglobin 27 pg Mean Corpuscular Hemoglobin Concent 32 g/dL Red Cell Distribution Width 14.9 % Platelet Count 316 x10^3/uL Neutrophils (%) (Auto) 75 % Lymphocytes (%) (Auto) 19 % Monocytes (%) (Auto) 6 % Eosinophils (%) (Auto) 0 % Basophils (%) (Auto) 0 % Neutrophils # (Auto) 7.6 x10^3uL Lymphocytes # (Auto) 1.9 x10^3/uL Monocytes # (Auto) 0.7 x10^3/uL Eosinophils # (Auto) 0.0 x10^3/uL Basophils # (Auto) 0.0 x10^3/uL PE: GEN: NAD LUNGS: CTAB HEART: RRR ABD: ostomy bag w/ liquid stool, tender NEURO/PSYCH: A & O 3 A/P: S/p hernia repair -- Continue per surgery. Re: "dysphagia," she drank water in front of me w/o issue, RN says she takes pills w/o problems. If needed, EGD w/ dilation can be pursued as outpt w/ Dr. Marcum which is who she prefers to follow with. VIJAY BRIONES Nov 29, 2016 11:43
[2016-11-29] MEDS: IV NORMAL SALINE 1000ML BAG 1,000 ML IV SCH ×2 (13:26→18:36)
[2016-11-29 15:00] VITALS: BP 87/53
[2016-11-29 19:00] VITALS: BP 91/50
[2016-11-29] MEDS: ATORVASTATIN CALCIUM 20 MG TABLET PO SCH (21:18)
[2016-11-29 23:00] VITALS: BP 105/50
[2016-11-30] VITALS (20 sets, daily range): BP systolic 63–141; BP diastolic 34–71
[2016-11-30] MEDS: IV RINGERS,LACTATED 1000ML 1,000 ML IV SCH (05:26)
[2016-11-30] MEDS: IV NORMAL SALINE 1000ML BAG 1,000 ML IV SCH (05:55)
[2016-11-30] MEDS: ALPRAZolam 1 MG TABLET PO PRN ×3 (05:55→18:45)
[2016-11-30] MEDS: PANTOPRAZOLE 40 MG TABLET.DR. PO SCH (05:55)
[2016-11-30] MEDS: IBUPROFEN 200 MG TABLET. PO PRN (05:57)
[2016-11-30] MEDS: LEVOTHYROXINE 150 MCG TABLET PO SCH (06:04)
[2016-11-30] MEDS: GABAPENTIN 300 MG CAPSULE. PO SCH ×2 (08:25→13:59)
[2016-11-30] MEDS: CHOLECALCIFEROL (VITAMIN D3) 1,000 UNIT TABLET PO SCH (08:26)
[2016-11-30] MEDS: OMEGA-3 FATTY ACIDS/FISH OIL 1,000 MG CAPSULE. PO SCH (08:26)
[2016-11-30] MEDS: ENOXAPARIN 40 MG/0.4 ML SYRINGE. SQ SCH (08:26)
[2016-11-30] MEDS: VARENICLINE 0.5 MG TABLET. PO SCH ×2 (08:26→21:00)
[2016-11-30] MEDS: VITAMIN E 200 UNIT CAPSULE. PO SCH (08:27)
[2016-11-30] MEDS: MAGNESIUM OXIDE 400 MG TABLET PO SCH ×3 (08:27→18:45)
[2016-11-30] MEDS: POTASSIUM CHLORIDE 20 MEQ TABLET.ER. PO SCH ×3 (08:27→18:45)
[2016-11-30] MEDS: tiZANidine 4 MG TABLET. PO SCH ×4 (08:27→21:00)
[2016-11-30] MEDS: FUROSEMIDE 40 MG TABLET. PO SCH (08:27)
[2016-11-30] MEDS: ASPIRIN 325 MG TABLET PO SCH (08:36)
[2016-11-30] MEDS: ALBUTEROL SULFATE 2.5 MG/3 ML NEBU. NEB SCH ×3 (09:11→16:33)
[2016-11-30] MEDS: BUDESONIDE 0.5 MG/2 ML NEBU. NEB SCH ×2 (09:12→20:54)
--- NOTE | 2016-11-30 09:42 | PDOC ---
SURGICAL PROGRESS NOTE Subjective Pt up ambulating and feeling better, bethany clears, on oxygen, moving slowly Vital Signs Vital Signs Date Time Temp Pulse Resp B/P (MAP) Pulse Ox O2 Delivery O2 Flow Rate FiO2 11/30/16 09:15 88 Nasal Cannula 2.0 11/30/16 07:00 99.3 112 20 141/71 (94) 99.3 I&O Intake and Output 12/01/16 07:00 Intake Total 125 ml Output Total 100 ml Balance 25 ml Intake Oral 125 ml Stool Total 100 ml General: Alert, Oriented X3, Cooperative, No acute distress Abdomen: Soft Labs Laboratory Tests Test 11/29/16 04:27 11/29/16 10:10 Sodium Level 136 mmol/L (136-145) Potassium Level 4.0 mmol/L (3.5-5.1) Chloride Level 101 mmol/L (98-107) Carbon Dioxide Level 26 mmol/L (21-32) Anion Gap 9 (6-14) Blood Urea Nitrogen 8 mg/dL (7-20) Creatinine 0.9 mg/dL (0.6-1.0) Estimated GFR (Cockcroft-Gault) 64.1 Glucose Level 116 mg/dL (70-99) Calcium Level 8.8 mg/dL (8.5-10.1) White Blood Count 10.2 x10^3/uL (4.0-11.0) Red Blood Count 3.28 x10^6/uL (3.50-5.40) Hemoglobin 9.0 g/dL (12.0-15.5) Hematocrit 27.9 % (36.0-47.0) Mean Corpuscular Volume 85 fL (79-100) Mean Corpuscular Hemoglobin 27 pg (25-35) Mean Corpuscular Hemoglobin Concent 32 g/dL (31-37) Red Cell Distribution Width 14.9 % (11.5-14.5) Platelet Count 316 x10^3/uL (140-400) Neutrophils (%) (Auto) 75 % (31-73) Lymphocytes (%) (Auto) 19 % (24-48) Monocytes (%) (Auto) 6 % (0-9) Eosinophils (%) (Auto) 0 % (0-3) Basophils (%) (Auto) 0 % (0-3) Neutrophils # (Auto) 7.6 x10^3uL (1.8-7.7) Lymphocytes # (Auto) 1.9 x10^3/uL (1.0-4.8) Monocytes # (Auto) 0.7 x10^3/uL (0.0-1.1) Eosinophils # (Auto) 0.0 x10^3/uL (0.0-0.7) Basophils # (Auto) 0.0 x10^3/uL (0.0-0.2) Laboratory Tests Test 11/29/16 10:10 White Blood Count 10.2 x10^3/uL (4.0-11.0) Red Blood Count 3.28 x10^6/uL (3.50-5.40) Hemoglobin 9.0 g/dL (12.0-15.5) Hematocrit 27.9 % (36.0-47.0) Mean Corpuscular Volume 85 fL (79-100) Mean Corpuscular Hemoglobin 27 pg (25-35) Mean Corpuscular Hemoglobin Concent 32 g/dL (31-37) Red Cell Distribution Width 14.9 % (11.5-14.5) Platelet Count 316 x10^3/uL (140-400) Neutrophils (%) (Auto) 75 % (31-73) Lymphocytes (%) (Auto) 19 % (24-48) Monocytes (%) (Auto) 6 % (0-9) Eosinophils (%) (Auto) 0 % (0-3) Basophils (%) (Auto) 0 % (0-3) Neutrophils # (Auto) 7.6 x10^3uL (1.8-7.7) Lymphocytes # (Auto) 1.9 x10^3/uL (1.0-4.8) Monocytes # (Auto) 0.7 x10^3/uL (0.0-1.1) Eosinophils # (Auto) 0.0 x10^3/uL (0.0-0.7) Basophils # (Auto) 0.0 x10^3/uL (0.0-0.2) Problem List Problems Medical Problems: (1) Abdominal pain Status: Acute Assessment/Plan s/p xlap OOB cont clears, consider ADAT Problems: LETICIA KAUFFMAN MD Nov 30, 2016 09:42
--- NOTE | 2016-11-30 10:34 | PDOC ---
G I PROGRESS NOTE Subjective Thinks needs esophagus "stretched". Apparently FRAME WIRER felt no swallowing issues ( no note yet). Tolerating diet and ambulating. Has ostomy output. Physical Exam Lungs clear. RRR Abdomen soft, incisional tenderness. Review of Relevant I have reviewed the following items chris (where applicable) has been applied. Labs Laboratory Tests Test 11/29/16 04:27 11/29/16 10:10 Sodium Level 136 mmol/L (136-145) Potassium Level 4.0 mmol/L (3.5-5.1) Chloride Level 101 mmol/L (98-107) Carbon Dioxide Level 26 mmol/L (21-32) Anion Gap 9 (6-14) Blood Urea Nitrogen 8 mg/dL (7-20) Creatinine 0.9 mg/dL (0.6-1.0) Estimated GFR (Cockcroft-Gault) 64.1 Glucose Level 116 mg/dL (70-99) Calcium Level 8.8 mg/dL (8.5-10.1) White Blood Count 10.2 x10^3/uL (4.0-11.0) Red Blood Count 3.28 x10^6/uL (3.50-5.40) Hemoglobin 9.0 g/dL (12.0-15.5) Hematocrit 27.9 % (36.0-47.0) Mean Corpuscular Volume 85 fL (79-100) Mean Corpuscular Hemoglobin 27 pg (25-35) Mean Corpuscular Hemoglobin Concent 32 g/dL (31-37) Red Cell Distribution Width 14.9 % (11.5-14.5) Platelet Count 316 x10^3/uL (140-400) Neutrophils (%) (Auto) 75 % (31-73) Lymphocytes (%) (Auto) 19 % (24-48) Monocytes (%) (Auto) 6 % (0-9) Eosinophils (%) (Auto) 0 % (0-3) Basophils (%) (Auto) 0 % (0-3) Neutrophils # (Auto) 7.6 x10^3uL (1.8-7.7) Lymphocytes # (Auto) 1.9 x10^3/uL (1.0-4.8) Monocytes # (Auto) 0.7 x10^3/uL (0.0-1.1) Eosinophils # (Auto) 0.0 x10^3/uL (0.0-0.7) Basophils # (Auto) 0.0 x10^3/uL (0.0-0.2) Medications Current Medications Fentanyl Citrate (Fentanyl 2ml Vial) 50 mcg PRN Q15MIN PRN IV PAIN GREATER THAN 3/10 Last administered on 11/26/16 19:41; Start 11/26/16 at 18:00; Stop at 17:59; Status DC Sodium Chloride 1,000 ml @ 1,000 mls/hr Q1H IV Last administered on 11/26/16 18:20; Start 11/26/16 at 18:00; Stop 11/26/16 at 18:59; Status DC Ondansetron HCl (Zofran) 4 mg 1X ONCE IV Last administered on 11/26/16 18:19 ; Start 11/26/16 at 18:00; Stop 11/26/16 at 18:01; Status DC Iohexol (Omnipaque 300 Mg/ml) 60 ml 1X ONCE IV Last administered on 11/26/16 18:39; Start 11/26/16 at 18:15; Stop 11/26/16 at 18:16; Status DC Info (Do NOT chart on this entry -- for MONITORING) 1 each PRN DAILY PRN MC SEE COMMENTS; Start 11/26/16 at 18:15; Stop 11/28/16 at 18:14; Status DC Ondansetron HCl (Zofran) 4 mg PRN Q8HRS PRN IV NAUSEA/VOMITING; Start 11/26/16 at 19:45; Stop 11/27/16 at 19:44; Status DC Fentanyl Citrate (Fentanyl 2ml Vial) 50 mcg PRN Q1HR PRN IV PAIN Last administered on 11/27/16 16:15; Start 11/26/16 at 19:45; Stop 11/27/16 at 19:44 ; Status DC Sodium Chloride 1,000 ml @ 100 mls/hr Q10H IV Last administered on 11/27/16 16:17; Start 11/26/16 at 20:00; Stop 11/27/16 at 19:59; Status DC Acetaminophen (Tylenol) 650 mg PRN Q4HRS PRN PO FEVER; Start 11/26/16 at 19:45 ; Stop 11/27/16 at 19:44; Status DC Gabapentin (Neurontin) 600 mg 1X ONCE PO Last administered on 11/26/16 22:14 ; Start 11/26/16 at 21:45; Stop 11/26/16 at 21:46; Status DC Varenicline (Chantix) 1 mg 1X ONCE PO Last administered on 11/26/16 22:15; Start 11/26/16 at 21:45; Stop 11/26/16 at 21:46; Status DC Atorvastatin Calcium (Lipitor) 40 mg 1X ONCE PO Last administered on 22:15; Start 11/26/16 at 21:45; Stop 11/26/16 at 21:46; Status DC Alprazolam (Xanax) 1 mg 1X ONCE PO Last administered on 11/26/16 22:15; Start 11/26/16 at 21:45; Stop 11/26/16 at 21:46; Status DC Tizanidine HCl (Zanaflex) 4 mg 1X ONCE PO Last administered on 11/26/16 22:15 ; Start 11/26/16 at 21:45; Stop 11/26/16 at 21:46; Status DC Potassium Chloride (Klor-Con) 20 meq 1X ONCE PO Last administered on 22:14; Start 11/26/16 at 21:45; Stop 11/26/16 at 21:46; Status DC Alprazolam (Xanax) 1 mg PRN QID PRN PO ANXIETY / AGITATION Last administered on 11/30/16 05:55; Start 11/27/16 at 08:45 Aspirin (Nader Aspirin) 325 mg DAILY PO Last administered on 11/30/16 08:36; Start 11/27/16 at 09:00 Atorvastatin Calcium (Lipitor) 40 mg HS PO Last administered on 11/29/16 21:18 ; Start 11/27/16 at 21:00 Dicyclomine HCl (Bentyl) 20 mg PRN Q6HRS PRN PO GI PAIN Last administered on 20:33; Start 11/27/16 at 08:45 Furosemide (Lasix) 40 mg DAILY PO Last administered on 11/30/16 08:27; Start 11/27/16 at 09:00 Acetaminophen/ Hydrocodone Bitart (Lortab 7.5/325) 1 tab PRN Q6HRS PRN PO PAIN Last administered on 11/27/16 20:35; Start 11/27/16 at 08:45 Levothyroxine Sodium (Synthroid) 150 mcg DAILY07 PO Last administered on 06:04; Start 11/27/16 at 10:30 Magnesium Oxide (Magnesium Oxide) 400 mg QID PO Last administered on 11/30/16 08:27; Start 11/27/16 at 09:00 Tizanidine HCl (Zanaflex) 4 mg QID PO Last administered on 11/30/16 08:27; Start 11/27/16 at 09:00 Non-Formulary Medication 8.5 gm Q4HRS IH ; Start 11/27/16 at 12:00; Stop at 12:00; Status DC Vitamin D (Vitamin D3) 1,000 unit DAILY PO Last administered on 11/30/16 08:26 ; Start 11/27/16 at 09:00 Non-Formulary Medication 1 each BID IH ; Start 11/27/16 at 09:00; Stop 11/27/16 at 09:38; Status DC Gabapentin (Neurontin) 600 mg TID PO Last administered on 11/30/16 08:25; Start 11/27/16 at 09:00 Fish Oil (Fish Oil) 1,000 mg DAILY PO Last administered on 11/30/16 08:26; Start 11/27/16 at 09:00 Pantoprazole Sodium (Protonix) 40 mg DAILYAC PO Last administered on 11/30/16 05:55; Start 11/27/16 at 11:30 Potassium Chloride (Klor-Con) 20 meq TIDWMEALS PO Last administered on 08:27; Start 11/27/16 at 09:00 Vitamin E 400 unit DAILY PO Last administered on 11/30/16 08:27; Start at 09:00 Varenicline (Chantix) 1 mg BID PO Last administered on 11/30/16 08:26; Start 11/27/16 at 09:00 Albuterol Sulfate (Ventolin Neb Soln) 2.5 mg Q4HRS NEB Last administered on 23:02; Start 11/27/16 at 12:00; Stop 11/29/16 at 23:05; Status DC Budesonide (Pulmicort) 0.5 mg RTBID NEB Last administered on 11/30/16 09:12; Start 11/27/16 at 10:00 Iohexol (Omnipaque 350 Mg/ml) 300 ml 1X ONCE PO Last administered on 13:30; Start 11/27/16 at 12:45; Stop 11/27/16 at 12:48; Status DC Iohexol (Omnipaque 350 Mg/ml) 100 ml STK-MED ONCE .ROUTE ; Start 11/27/16 at 13: 04; Stop 11/27/16 at 13:05; Status DC Iohexol (Omnipaque 300 Mg/ml) 300 ml 1X ONCE PO ; Start 11/27/16 at 13:30; Stop 11/27/16 at 13:31; Status DC Info (Do NOT chart on this entry -- for MONITORING) 1 each PRN DAILY PRN MC SEE COMMENTS; Start 11/27/16 at 13:30; Stop 11/29/16 at 13:29; Status DC Iohexol (Omnipaque 350 Mg/ml) 100 ml STK-MED ONCE .ROUTE ; Start 11/27/16 at 13: 24; Stop 11/27/16 at 13:25; Status DC Ondansetron HCl (Zofran) 4 mg PRN Q6HRS PRN IV NAUSEA/VOMITING; Start 11/28/16 at 07:00; Stop 11/28/16 at 07:00; Status DC Fentanyl Citrate (Fentanyl 2ml Vial) 25 mcg PRN Q5MIN PRN IV MILD PAIN; Start 11/28/16 at 07:00; Stop 11/28/16 at 18:00; Status DC Fentanyl Citrate (Fentanyl 2ml Vial) 50 mcg PRN Q5MIN PRN IV MODERATE PAIN Last administered on 11/28/16 13:50; Start 11/28/16 at 07:00; Stop 11/28/16 at 18:00; Status DC Morphine Sulfate 1 mg PRN Q10MIN PRN IV SEVERE PAIN; Start 11/28/16 at 07:00; Stop 11/28/16 at 18:00; Status DC Ringer's Solution 1,000 ml @ 30 mls/hr Q24H IV Last administered on 11/28/16 07:47; Start 11/28/16 at 07:00; Stop 11/28/16 at 18:59; Status DC Lidocaine HCl 2 ml PRN 1X PRN ID PRIOR TO IV START; Start 11/28/16 at 07:00; Stop 11/28/16 at 18:00; Status DC Hydromorphone HCl (Dilaudid) 0.5 mg PRN Q10MIN PRN IV SEV PAIN, Second choice Last administered on 11/28/16 14:11; Start 11/28/16 at 07:00; Stop 11/28/16 at 18:00; Status DC Prochlorperazine Edisylate (Compazine) 5 mg PACU PRN PRN IV NAUSEA, MRX1 Last administered on 11/28/16 13:42; Start 11/28/16 at 07:00; Stop 11/28/16 at 18:00 ; Status DC Cefoxitin Sodium 2 gm/Sodium Chloride 100 ml @ 200 mls/hr 1X PREOP IV ; Start 11/27/16 at 19:15; Stop 11/27/16 at 19:15; Status DC Cefoxitin Sodium 2 gm/Sodium Chloride 100 ml @ 200 mls/hr 1X PREOP ONCE IV Last administered on 11/28/16 09:15; Start 11/28/16 at 06:00; Stop 11/28/16 at 06:29; Status DC Fentanyl Citrate (Fentanyl 2ml Vial) 50 mcg PRN Q2HR PRN IV SEVERE PAIN Last administered on 11/28/16 07:58; Start 11/27/16 at 23:00 Fentanyl Citrate (Fentanyl 2ml Vial) 25 mcg PRN Q2HR PRN IV MODERATE PAIN; Start 11/27/16 at 23:00 Ondansetron HCl (Zofran) 4 mg PRN Q6HRS PRN IV NAUSEA/VOMITING; Start 11/28/16 at 03:45; Status Cancel Ondansetron HCl (Zofran) 4 mg PRN Q6HRS PRN IV NAUSEA/VOMITING Last administered on 11/29/16 12:25; Start 11/28/16 at 04:00; Stop 11/29/16 at 14:02 ; Status DC Ondansetron HCl (Zofran) 4 mg PRN Q6HRS PRN IV NAUSEA/VOMITING; Start 11/28/16 at 07:00; Stop 11/28/16 at 19:00; Status DC Bupivacaine HCl/ Epinephrine Bitart (Marcaine-Epi 0.5%-[id number]) 50 ml STK-MED ONCE .ROUTE ; Start 11/28/16 at 07:52; Stop 11/28/16 at 07:53; Status DC Fentanyl Citrate (Fentanyl 2ml Vial) 100 mcg STK-MED ONCE .ROUTE ; Start at 08:39; Stop 11/28/16 at 08:40; Status DC Rocuronium Cecil (Zemuron) 100 mg STK-MED ONCE .ROUTE ; Start 11/28/16 at 08: 39; Stop 11/28/16 at 08:40; Status DC Cefoxitin Sodium 100 ml @ As Directed STK-MED ONCE IV ; Start 11/28/16 at 08:39 ; Stop 11/28/16 at 08:40; Status DC Dexamethasone Sodium Phosphate (Decadron) 20 mg STK-MED ONCE .ROUTE ; Start at 08:39; Stop 11/28/16 at 08:40; Status DC Ondansetron HCl (Zofran) 4 mg STK-MED ONCE .ROUTE ; Start 11/28/16 at 08:39; Stop 11/28/16 at 08:40; Status DC Propofol 20 ml @ As Directed STK-MED ONCE IV ; Start 11/28/16 at 08:39; Stop at 08:40; Status DC Lidocaine HCl (Lidocaine Pf 2% Vial) 5 ml STK-MED ONCE .ROUTE ; Start 11/28/16 at 08:39; Stop 11/28/16 at 08:40; Status DC Midazolam HCl (Versed) 2 mg STK-MED ONCE .ROUTE ; Start 11/28/16 at 09:00; Stop 11/28/16 at 09:01; Status DC Fentanyl Citrate (Fentanyl 5ml Vial) 250 mcg STK-MED ONCE .ROUTE ; Start at 09:28; Stop 11/28/16 at 09:29; Status DC Sevoflurane (Ultane) 90 ml STK-MED ONCE IH ; Start 11/28/16 at 09:59; Stop 11/28 at 10:00; Status DC Glycopyrrolate (Robinul) 1 mg STK-MED ONCE .ROUTE ; Start 11/28/16 at 12:18; Stop 11/28/16 at 12:19; Status DC Neostigmine Methylsulfate (Bloxiverz) 10 mg STK-MED ONCE .ROUTE ; Start at 12:18; Stop 11/28/16 at 12:19; Status DC Fentanyl Citrate (Fentanyl 2ml Vial) 100 mcg STK-MED ONCE .ROUTE ; Start at 13:16; Stop 11/28/16 at 13:17; Status DC Hydromorphone HCl (Dilaudid) 2 mg STK-MED ONCE .ROUTE ; Start 11/28/16 at 13:27 ; Stop 11/28/16 at 13:28; Status DC Enoxaparin Sodium (Lovenox 40mg Syringe) 40 mg Q24H SQ Last administered on 08:26; Start 11/29/16 at 08:00 Sodium Chloride (Normal Saline Flush) 3 ml QSHIFT PRN IV AFTER MEDS AND BLOOD DRAWS; Start 11/28/16 at 13:30 Ringer's Solution 1,000 ml @ 100 mls/hr Q10H IV ; Start 11/28/16 at 13:26 Naloxone HCl (Narcan) 0.4 mg PRN Q2MIN PRN IV SEE INSTRUCTIONS; Start 11/28/16 at 13:30 Sodium Chloride 1,000 ml @ 25 mls/hr Q24H IV Last administered on 11/30/16 05 :55; Start 11/28/16 at 13:26 Hydromorphone HCl 30 ml @ 0 mls/hr CONT PRN PRN IV PROTOCOL Last administered on 11/29/16 18:35; Start 11/28/16 at 13:30 Ondansetron HCl (Zofran) 4 mg PRN Q6HRS PRN IV NAUESA, 1ST CHOICE; Start at 13:30 Fentanyl Citrate (Fentanyl 2ml Vial) 100 mcg STK-MED ONCE .ROUTE ; Start at 13:36; Stop 11/28/16 at 13:37; Status DC Prochlorperazine Edisylate (Compazine) 10 mg STK-MED ONCE .ROUTE ; Start at 13:37; Stop 11/28/16 at 13:38; Status DC Ibuprofen (Motrin) 200 mg PRN Q6HRS PRN PO INFLAMMATION Last administered on 05:57; Start 11/29/16 at 08:30 Albuterol Sulfate (Ventolin Neb Soln) 2.5 mg RTQID NEB Last administered on 09:11; Start 11/30/16 at 08:00 Active Scripts Active Hydrocodone-Apap 7.5-325 (Hydrocodone Bit/Acetaminophen) 1 Each Tablet 1 Tab PO PRN Q6HRS PRN 30 Days Levothyroxine Sodium 150 Mcg Tablet 1 Tab PO DAILY Bentyl (Dicyclomine Hcl) 10 Mg Capsule 20 Mg PO Q6HRS Reported Chantix (Varenicline Tartrate) 1 Mg Tablet 1 Mg PO BID Atorvastatin Calcium 20 Mg Tablet 40 Mg PO HS Vitamin D (Cholecalciferol (Vitamin D3)) 1,000 Unit Capsule 1,000 Unit PO DAILY Vitamin E 400 Unit Capsule 400 Unit PO DAILY Fish Oil ([place]-3 Fatty Acids) 500 Mg Capsule 500 Mg PO DAILY Magnesium Oxide 400 Mg Tablet 400 Mg PO QID Xanax (Alprazolam) 1 Mg Tablet 1 Mg PO QID Lasix (Furosemide) 40 Mg Tablet 40 Mg PO DAILY Aspirin 325 Mg Tablet 325 Mg PO DAILY Gabapentin 600 Mg Tablet 600 Mg PO TID Tizanidine Hcl 4 Mg Tablet 4 Mg PO QID Estradiol 1 Each Patch.tdwk 1 Each TD DAILY07 Omeprazole 20 Mg Tablet.dr 20 Mg PO DAILY07 Klor-Con (Potassium Chloride) 20 Meq Packet 20 Meq PO TID Proair Hfa Inhaler (Albuterol Sulfate) 8.5 Gm Hfa.aer.ad 8.5 Gm IH Q4HRS Advair 500-50 Diskus (Fluticasone/Salmeterol) 1 Each Disk.w.dev 1 Each IH BID Vitals/I & O Vital Sign - Last 24 Hours 11/29/16 11/29/16 11/29/16 11/29/16 10:53 11:00 15:00 15:24 Temp 98.1 98.2 98.1 98.2 Pulse 86 82 Resp 18 16 B/P (MAP) 99/53 (68) 87/53 (64) Pulse Ox 92 93 92 O2 Delivery Nasal Cannula Nasal Cannula Nasal Cannula Nasal Cannula O2 Flow Rate 2.0 2.0 2.0 2.0 11/29/16 11/29/16 11/29/16 11/29/16 19:00 19:05 20:00 20:43 Temp 99.7 99.7 Pulse 85 Resp 20 16 B/P (MAP) 91/50 (64) Pulse Ox 92 94 O2 Delivery Nasal Cannula Room Air Nasal Cannula Nasal Cannula O2 Flow Rate 2.0 2.0 2.0 11/29/16 11/29/16 11/30/16 11/30/16 23:00 23:03 03:15 07:00 Temp 98.4 98.6 99.3 98.4 98.6 99.3 Pulse 84 84 112 Resp 20 20 20 B/P (MAP) 105/50 (68) 108/62 (77) 141/71 (94) Pulse Ox 93 93 94 O2 Delivery Nasal Cannula Nasal Cannula Nasal Cannula Nasal Cannula O2 Flow Rate 2.0 2.0 2.0 2.0 11/30/16 09:15 Pulse Ox 88 O2 Delivery Nasal Cannula O2 Flow Rate 2.0 Intake and Output 11/30/16 11/30/16 12/01/16 15:00 23:00 07:00 Intake Total 925 ml Output Total 250 ml Balance 675 ml Problem List Problems Medical Problems: (1) Abdominal pain Status: Acute Assessment Post-ileostomy revision/herniae repairs, progressing. Plan of Care: Continue current Tx, Mgmt Plan of Care Note She plans to call Dr. Marcum after discharge. TIFFANI GUAN MD Nov 30, 2016 10:34
--- NOTE | 2016-11-30 10:57 | PDOC ---
PROGRESS NOTES Subjective Subjective Patient reports feeling better. Denies nausea, taking clears with good appetite. Some urinary retention after d/c of [place] but this is chronic for her. Objective Objective Vital Signs Date Time Temp Pulse Resp B/P (MAP) Pulse Ox O2 Delivery O2 Flow Rate FiO2 11/30/16 09:15 88 Nasal Cannula 2.0 11/30/16 07:00 99.3 112 20 141/71 (94) 99.3 Intake and Output 12/01/16 07:00 Intake Total 925 ml Output Total 250 ml Balance 675 ml Intake Oral 925 ml Stool Total 250 ml Physical Exam Abdomen: Normal bowel sounds, Soft, Other (liquid stool in ostomy bag) Heart: Regular rate Extremities: No edema General: Alert, Oriented X3, No acute distress (appears mildly sedated on CERTIFIED DETENTION DEPUTY) Lungs: Other (BS decreased throughout, scant wheezes) Assessment Assessment Problems Medical Problems: (1) Abdominal pain Status: Acute Plan Plan of Care 1. POD #2 repair of hernias - doing well. Will try full liquids. D/C CERTIFIED DETENTION DEPUTY, po and IV pain meds available. Continue to increase activity level, patient has been walking in the [place] daily. 2. COPD - stable, continue nebs, continue Chantix. 3. dysphagia - patient had c/o feeling that things were sticking and has needed esophageal dilation in the past. Bedside swallow with liquids and pills was good. Can reevaluate after she is back to regular diet. Have patient follow up with GI as outpatient for further tx. 4. chronic back pain - resume po pain meds. Comment Review of Relevant I have reviewed the following items chris (where applicable) has been applied. Labs Laboratory Tests Test 11/29/16 04:27 11/29/16 10:10 Sodium Level 136 mmol/L (136-145) Potassium Level 4.0 mmol/L (3.5-5.1) Chloride Level 101 mmol/L (98-107) Carbon Dioxide Level 26 mmol/L (21-32) Anion Gap 9 (6-14) Blood Urea Nitrogen 8 mg/dL (7-20) Creatinine 0.9 mg/dL (0.6-1.0) Estimated GFR (Cockcroft-Gault) 64.1 Glucose Level 116 mg/dL (70-99) Calcium Level 8.8 mg/dL (8.5-10.1) White Blood Count 10.2 x10^3/uL (4.0-11.0) Red Blood Count 3.28 x10^6/uL (3.50-5.40) Hemoglobin 9.0 g/dL (12.0-15.5) Hematocrit 27.9 % (36.0-47.0) Mean Corpuscular Volume 85 fL (79-100) Mean Corpuscular Hemoglobin 27 pg (25-35) Mean Corpuscular Hemoglobin Concent 32 g/dL (31-37) Red Cell Distribution Width 14.9 % (11.5-14.5) Platelet Count 316 x10^3/uL (140-400) Neutrophils (%) (Auto) 75 % (31-73) Lymphocytes (%) (Auto) 19 % (24-48) Monocytes (%) (Auto) 6 % (0-9) Eosinophils (%) (Auto) 0 % (0-3) Basophils (%) (Auto) 0 % (0-3) Neutrophils # (Auto) 7.6 x10^3uL (1.8-7.7) Lymphocytes # (Auto) 1.9 x10^3/uL (1.0-4.8) Monocytes # (Auto) 0.7 x10^3/uL (0.0-1.1) Eosinophils # (Auto) 0.0 x10^3/uL (0.0-0.7) Basophils # (Auto) 0.0 x10^3/uL (0.0-0.2) Medications Current Medications Fentanyl Citrate (Fentanyl 2ml Vial) 50 mcg PRN Q15MIN PRN IV PAIN GREATER THAN 3/10 Last administered on 11/26/16 19:41; Start 11/26/16 at 18:00; Stop at 17:59; Status DC Sodium Chloride 1,000 ml @ 1,000 mls/hr Q1H IV Last administered on 11/26/16 18:20; Start 11/26/16 at 18:00; Stop 11/26/16 at 18:59; Status DC Ondansetron HCl (Zofran) 4 mg 1X ONCE IV Last administered on 11/26/16 18:19 ; Start 11/26/16 at 18:00; Stop 11/26/16 at 18:01; Status DC Iohexol (Omnipaque 300 Mg/ml) 60 ml 1X ONCE IV Last administered on 11/26/16 18:39; Start 11/26/16 at 18:15; Stop 11/26/16 at 18:16; Status DC Info (Do NOT chart on this entry -- for MONITORING) 1 each PRN DAILY PRN MC SEE COMMENTS; Start 11/26/16 at 18:15; Stop 11/28/16 at 18:14; Status DC Ondansetron HCl (Zofran) 4 mg PRN Q8HRS PRN IV NAUSEA/VOMITING; Start 11/26/16 at 19:45; Stop 11/27/16 at 19:44; Status DC Fentanyl Citrate (Fentanyl 2ml Vial) 50 mcg PRN Q1HR PRN IV PAIN Last administered on 11/27/16 16:15; Start 11/26/16 at 19:45; Stop 11/27/16 at 19:44 ; Status DC Sodium Chloride 1,000 ml @ 100 mls/hr Q10H IV Last administered on 11/27/16 16:17; Start 11/26/16 at 20:00; Stop 11/27/16 at 19:59; Status DC Acetaminophen (Tylenol) 650 mg PRN Q4HRS PRN PO FEVER; Start 11/26/16 at 19:45 ; Stop 11/27/16 at 19:44; Status DC Gabapentin (Neurontin) 600 mg 1X ONCE PO Last administered on 11/26/16 22:14 ; Start 11/26/16 at 21:45; Stop 11/26/16 at 21:46; Status DC Varenicline (Chantix) 1 mg 1X ONCE PO Last administered on 11/26/16 22:15; Start 11/26/16 at 21:45; Stop 11/26/16 at 21:46; Status DC Atorvastatin Calcium (Lipitor) 40 mg 1X ONCE PO Last administered on 22:15; Start 11/26/16 at 21:45; Stop 11/26/16 at 21:46; Status DC Alprazolam (Xanax) 1 mg 1X ONCE PO Last administered on 11/26/16 22:15; Start 11/26/16 at 21:45; Stop 11/26/16 at 21:46; Status DC Tizanidine HCl (Zanaflex) 4 mg 1X ONCE PO Last administered on 11/26/16 22:15 ; Start 11/26/16 at 21:45; Stop 11/26/16 at 21:46; Status DC Potassium Chloride (Klor-Con) 20 meq 1X ONCE PO Last administered on 22:14; Start 11/26/16 at 21:45; Stop 11/26/16 at 21:46; Status DC Alprazolam (Xanax) 1 mg PRN QID PRN PO ANXIETY / AGITATION Last administered on 11/30/16 05:55; Start 11/27/16 at 08:45 Aspirin (Nader Aspirin) 325 mg DAILY PO Last administered on 11/30/16 08:36; Start 11/27/16 at 09:00 Atorvastatin Calcium (Lipitor) 40 mg HS PO Last administered on 11/29/16 21:18 ; Start 11/27/16 at 21:00 Dicyclomine HCl (Bentyl) 20 mg PRN Q6HRS PRN PO GI PAIN Last administered on 20:33; Start 11/27/16 at 08:45 Furosemide (Lasix) 40 mg DAILY PO Last administered on 11/30/16 08:27; Start 11/27/16 at 09:00 Acetaminophen/ Hydrocodone Bitart (Lortab 7.5/325) 1 tab PRN Q6HRS PRN PO PAIN Last administered on 11/27/16 20:35; Start 11/27/16 at 08:45 Levothyroxine Sodium (Synthroid) 150 mcg DAILY07 PO Last administered on 06:04; Start 11/27/16 at 10:30 Magnesium Oxide (Magnesium Oxide) 400 mg QID PO Last administered on 11/30/16 08:27; Start 11/27/16 at 09:00 Tizanidine HCl (Zanaflex) 4 mg QID PO Last administered on 11/30/16 08:27; Start 11/27/16 at 09:00 Non-Formulary Medication 8.5 gm Q4HRS IH ; Start 11/27/16 at 12:00; Stop at 12:00; Status DC Vitamin D (Vitamin D3) 1,000 unit DAILY PO Last administered on 11/30/16 08:26 ; Start 11/27/16 at 09:00 Non-Formulary Medication 1 each BID IH ; Start 11/27/16 at 09:00; Stop 11/27/16 at 09:38; Status DC Gabapentin (Neurontin) 600 mg TID PO Last administered on 11/30/16 08:25; Start 11/27/16 at 09:00 Fish Oil (Fish Oil) 1,000 mg DAILY PO Last administered on 11/30/16 08:26; Start 11/27/16 at 09:00 Pantoprazole Sodium (Protonix) 40 mg DAILYAC PO Last administered on 11/30/16 05:55; Start 11/27/16 at 11:30 Potassium Chloride (Klor-Con) 20 meq TIDWMEALS PO Last administered on 08:27; Start 11/27/16 at 09:00 Vitamin E 400 unit DAILY PO Last administered on 11/30/16 08:27; Start at 09:00 Varenicline (Chantix) 1 mg BID PO Last administered on 11/30/16 08:26; Start 11/27/16 at 09:00 Albuterol Sulfate (Ventolin Neb Soln) 2.5 mg Q4HRS NEB Last administered on 23:02; Start 11/27/16 at 12:00; Stop 11/29/16 at 23:05; Status DC Budesonide (Pulmicort) 0.5 mg RTBID NEB Last administered on 11/30/16 09:12; Start 11/27/16 at 10:00 Iohexol (Omnipaque 350 Mg/ml) 300 ml 1X ONCE PO Last administered on 13:30; Start 11/27/16 at 12:45; Stop 11/27/16 at 12:48; Status DC Iohexol (Omnipaque 350 Mg/ml) 100 ml STK-MED ONCE .ROUTE ; Start 11/27/16 at 13: 04; Stop 11/27/16 at 13:05; Status DC Iohexol (Omnipaque 300 Mg/ml) 300 ml 1X ONCE PO ; Start 11/27/16 at 13:30; Stop 11/27/16 at 13:31; Status DC Info (Do NOT chart on this entry -- for MONITORING) 1 each PRN DAILY PRN MC SEE COMMENTS; Start 11/27/16 at 13:30; Stop 11/29/16 at 13:29; Status DC Iohexol (Omnipaque 350 Mg/ml) 100 ml STK-MED ONCE .ROUTE ; Start 11/27/16 at 13: 24; Stop 11/27/16 at 13:25; Status DC Ondansetron HCl (Zofran) 4 mg PRN Q6HRS PRN IV NAUSEA/VOMITING; Start 11/28/16 at 07:00; Stop 11/28/16 at 07:00; Status DC Fentanyl Citrate (Fentanyl 2ml Vial) 25 mcg PRN Q5MIN PRN IV MILD PAIN; Start 11/28/16 at 07:00; Stop 11/28/16 at 18:00; Status DC Fentanyl Citrate (Fentanyl 2ml Vial) 50 mcg PRN Q5MIN PRN IV MODERATE PAIN Last administered on 11/28/16 13:50; Start 11/28/16 at 07:00; Stop 11/28/16 at 18:00; Status DC Morphine Sulfate 1 mg PRN Q10MIN PRN IV SEVERE PAIN; Start 11/28/16 at 07:00; Stop 11/28/16 at 18:00; Status DC Ringer's Solution 1,000 ml @ 30 mls/hr Q24H IV Last administered on 11/28/16 07:47; Start 11/28/16 at 07:00; Stop 11/28/16 at 18:59; Status DC Lidocaine HCl 2 ml PRN 1X PRN ID PRIOR TO IV START; Start 11/28/16 at 07:00; Stop 11/28/16 at 18:00; Status DC Hydromorphone HCl (Dilaudid) 0.5 mg PRN Q10MIN PRN IV SEV PAIN, Second choice Last administered on 11/28/16 14:11; Start 11/28/16 at 07:00; Stop 11/28/16 at 18:00; Status DC Prochlorperazine Edisylate (Compazine) 5 mg PACU PRN PRN IV NAUSEA, MRX1 Last administered on 11/28/16 13:42; Start 11/28/16 at 07:00; Stop 11/28/16 at 18:00 ; Status DC Cefoxitin Sodium 2 gm/Sodium Chloride 100 ml @ 200 mls/hr 1X PREOP IV ; Start 11/27/16 at 19:15; Stop 11/27/16 at 19:15; Status DC Cefoxitin Sodium 2 gm/Sodium Chloride 100 ml @ 200 mls/hr 1X PREOP ONCE IV Last administered on 11/28/16 09:15; Start 11/28/16 at 06:00; Stop 11/28/16 at 06:29; Status DC Fentanyl Citrate (Fentanyl 2ml Vial) 50 mcg PRN Q2HR PRN IV SEVERE PAIN Last administered on 11/28/16 07:58; Start 11/27/16 at 23:00 Fentanyl Citrate (Fentanyl 2ml Vial) 25 mcg PRN Q2HR PRN IV MODERATE PAIN; Start 11/27/16 at 23:00 Ondansetron HCl (Zofran) 4 mg PRN Q6HRS PRN IV NAUSEA/VOMITING; Start 11/28/16 at 03:45; Status Cancel Ondansetron HCl (Zofran) 4 mg PRN Q6HRS PRN IV NAUSEA/VOMITING Last administered on 11/29/16 12:25; Start 11/28/16 at 04:00; Stop 11/29/16 at 14:02 ; Status DC Ondansetron HCl (Zofran) 4 mg PRN Q6HRS PRN IV NAUSEA/VOMITING; Start 11/28/16 at 07:00; Stop 11/28/16 at 19:00; Status DC Bupivacaine HCl/ Epinephrine Bitart (Marcaine-Epi 0.5%-1:[id number]) 50 ml STK-MED ONCE .ROUTE ; Start 11/28/16 at 07:52; Stop 11/28/16 at 07:53; Status DC Fentanyl Citrate (Fentanyl 2ml Vial) 100 mcg STK-MED ONCE .ROUTE ; Start at 08:39; Stop 11/28/16 at 08:40; Status DC Rocuronium [place] (Zemuron) 100 mg STK-MED ONCE .ROUTE ; Start 11/28/16 at 08: 39; Stop 11/28/16 at 08:40; Status DC Cefoxitin Sodium 100 ml @ As Directed STK-MED ONCE IV ; Start 11/28/16 at 08:39 ; Stop 11/28/16 at 08:40; Status DC Dexamethasone Sodium Phosphate (Decadron) 20 mg STK-MED ONCE .ROUTE ; Start at 08:39; Stop 11/28/16 at 08:40; Status DC Ondansetron HCl (Zofran) 4 mg STK-MED ONCE .ROUTE ; Start 11/28/16 at 08:39; Stop 11/28/16 at 08:40; Status DC Propofol 20 ml @ As Directed STK-MED ONCE IV ; Start 11/28/16 at 08:39; Stop at 08:40; Status DC Lidocaine HCl (Lidocaine Pf 2% Vial) 5 ml STK-MED ONCE .ROUTE ; Start 11/28/16 at 08:39; Stop 11/28/16 at 08:40; Status DC Midazolam HCl (Versed) 2 mg STK-MED ONCE .ROUTE ; Start 11/28/16 at 09:00; Stop 11/28/16 at 09:01; Status DC Fentanyl Citrate (Fentanyl 5ml Vial) 250 mcg STK-MED ONCE .ROUTE ; Start at 09:28; Stop 11/28/16 at 09:29; Status DC Sevoflurane (Ultane) 90 ml STK-MED ONCE IH ; Start 11/28/16 at 09:59; Stop 11/28 at 10:00; Status DC Glycopyrrolate (Robinul) 1 mg STK-MED ONCE .ROUTE ; Start 11/28/16 at 12:18; Stop 11/28/16 at 12:19; Status DC Neostigmine Methylsulfate (Bloxiverz) 10 mg STK-MED ONCE .ROUTE ; Start at 12:18; Stop 11/28/16 at 12:19; Status DC Fentanyl Citrate (Fentanyl 2ml Vial) 100 mcg STK-MED ONCE .ROUTE ; Start at 13:16; Stop 11/28/16 at 13:17; Status DC Hydromorphone HCl (Dilaudid) 2 mg STK-MED ONCE .ROUTE ; Start 11/28/16 at 13:27 ; Stop 11/28/16 at 13:28; Status DC Enoxaparin Sodium (Lovenox 40mg Syringe) 40 mg Q24H SQ Last administered on 08:26; Start 11/29/16 at 08:00 Sodium Chloride (Normal Saline Flush) 3 ml QSHIFT PRN IV AFTER MEDS AND BLOOD DRAWS; Start 11/28/16 at 13:30 Ringer's Solution 1,000 ml @ 100 mls/hr Q10H IV ; Start 11/28/16 at 13:26 Naloxone HCl (Narcan) 0.4 mg PRN Q2MIN PRN IV SEE INSTRUCTIONS; Start 11/28/16 at 13:30 Sodium Chloride 1,000 ml @ 25 mls/hr Q24H IV Last administered on 11/30/16 05 :55; Start 11/28/16 at 13:26 Hydromorphone HCl 30 ml @ 0 mls/hr CONT PRN PRN IV PROTOCOL Last administered on 11/29/16 18:35; Start 11/28/16 at 13:30 Ondansetron HCl (Zofran) 4 mg PRN Q6HRS PRN IV NAUESA, 1ST CHOICE; Start at 13:30 Fentanyl Citrate (Fentanyl 2ml Vial) 100 mcg STK-MED ONCE .ROUTE ; Start at 13:36; Stop 11/28/16 at 13:37; Status DC Prochlorperazine Edisylate (Compazine) 10 mg STK-MED ONCE .ROUTE ; Start at 13:37; Stop 11/28/16 at 13:38; Status DC Ibuprofen (Motrin) 200 mg PRN Q6HRS PRN PO INFLAMMATION Last administered on 05:57; Start 11/29/16 at 08:30 Albuterol Sulfate (Ventolin Neb Soln) 2.5 mg RTQID NEB Last administered on 09:11; Start 11/30/16 at 08:00 Active Scripts Active Hydrocodone-Apap 7.5-325 (Hydrocodone Bit/Acetaminophen) 1 Each Tablet 1 Tab PO PRN Q6HRS PRN 30 Days Levothyroxine Sodium 150 Mcg Tablet 1 Tab PO DAILY Bentyl (Dicyclomine Hcl) 10 Mg Capsule 20 Mg PO Q6HRS Reported Chantix (Varenicline Tartrate) 1 Mg Tablet 1 Mg PO BID Atorvastatin Calcium 20 Mg Tablet 40 Mg PO HS Vitamin D (Cholecalciferol (Vitamin D3)) 1,000 Unit Capsule 1,000 Unit PO DAILY Vitamin E 400 Unit Capsule 400 Unit PO DAILY Fish Oil ([place]-3 Fatty Acids) 500 Mg Capsule 500 Mg PO DAILY Magnesium Oxide 400 Mg Tablet 400 Mg PO QID Xanax (Alprazolam) 1 Mg Tablet 1 Mg PO QID Lasix (Furosemide) 40 Mg Tablet 40 Mg PO DAILY Aspirin 325 Mg Tablet 325 Mg PO DAILY Gabapentin 600 Mg Tablet 600 Mg PO TID Tizanidine Hcl 4 Mg Tablet 4 Mg PO QID Estradiol 1 Each Patch.tdwk 1 Each TD DAILY07 Omeprazole 20 Mg Tablet.dr 20 Mg PO DAILY07 Klor-Con (Potassium Chloride) 20 Meq Packet 20 Meq PO TID Proair Hfa Inhaler (Albuterol Sulfate) 8.5 Gm Hfa.aer.ad 8.5 Gm IH Q4HRS Advair 500-50 Diskus (Fluticasone/Salmeterol) 1 Each Disk.w.dev 1 Each IH BID Vitals/I & O Vital Sign - Last 24 Hours 11/29/16 11/29/16 11/29/16 11/29/16 10:53 11:00 15:00 15:24 Temp 98.1 98.2 98.1 98.2 Pulse 86 82 Resp 18 16 B/P (MAP) 99/53 (68) 87/53 (64) Pulse Ox 92 93 92 O2 Delivery Nasal Cannula Nasal Cannula Nasal Cannula Nasal Cannula O2 Flow Rate 2.0 2.0 2.0 2.0 11/29/16 11/29/16 11/29/16 11/29/16 19:00 19:05 20:00 20:43 Temp 99.7 99.7 Pulse 85 Resp 20 16 B/P (MAP) 91/50 (64) Pulse Ox 92 94 O2 Delivery Nasal Cannula Room Air Nasal Cannula Nasal Cannula O2 Flow Rate 2.0 2.0 2.0 11/29/16 11/29/16 11/30/16 11/30/16 23:00 23:03 03:15 07:00 Temp 98.4 98.6 99.3 98.4 98.6 99.3 Pulse 84 84 112 Resp 20 20 20 B/P (MAP) 105/50 (68) 108/62 (77) 141/71 (94) Pulse Ox 93 93 94 O2 Delivery Nasal Cannula Nasal Cannula Nasal Cannula Nasal Cannula O2 Flow Rate 2.0 2.0 2.0 2.0 11/30/16 09:15 Pulse Ox 88 O2 Delivery Nasal Cannula O2 Flow Rate 2.0 Intake and Output 11/30/16 11/30/16 12/01/16 15:00 23:00 07:00 Intake Total 925 ml Output Total 250 ml Balance 675 ml NICOLAS HICKS MD Nov 30, 2016 10:57
[2016-11-30] MEDS: HYDROcodone/APAP 7.5/325MG 1 TAB TABLET PO PRN (11:14)
[2016-11-30] MEDS ORDERED: ETOMIDATE 20 MG/10 ML VIAL. IV ONE (12:00)
[2016-11-30] MEDS: fentaNYL PF VIAL 100 MCG/2 ML VIAL IV PRN (14:00)
[2016-11-30] MEDS ORDERED: ALBUTEROL SULFATE 2.5 MG/3 ML NEBU. NEB PRN (17:20)
[2016-11-30] MEDS ORDERED: ACETAMINOPHEN 650 MG SUPP.RECT. PR PRN (17:30)
[2016-11-30] MEDS ORDERED: IOHEXOL 300 MG/ML 75 ML VIAL IV ONE (17:45)
[2016-11-30] MEDS ORDERED: CONTRAST GIVEN MC PRN (17:45)
[2016-11-30] MEDS ORDERED: VANCOMYCIN 1 GM in IV NORMAL SALINE 250ML 250 ML IV STA (18:19)
--- NOTE | 2016-11-30 18:37 | RAD ---
CT CHEST WITH CONTRAST, PULMONARY ANGIOGRAM History: Shortness air, concern for pulmonary embolism Comparison: Chest radiograph performed the same day. Technique: Helical CT of the chest was performed after the administration of 75 cc of Isovue 370 intravenous contrast according to PE protocol. Sagital and coronal reconstructions were obtained. Findings: Left upper lobe segmental pulmonary embolism (image 40, series 3). Limited evaluation of the distal pulmonary arterial system due to suboptimal distal contrast opacification and atelectasis. The thyroid is symmetric. Enlarged mediastinal and left hilar lymph nodes. For instance there is a 1.2 x 1.9 cm right lower paratracheal lymph node (image 41) and a 1.1 x 1.9 cm left hilar lymph node (image 65). The thoracic aorta diameter is normal. The cardiac size is normal. There is no pericardial effusion. The central airways are patent. Patchy areas of bilateral groundglass opacification. For instance there is a 2.4 x 1.7 cm left upper lobe area of groundglass opacities (image 64) and a 1.2 x 1.1 cm right upper lobe area groundglass opacities (image 46). Left greater than right lower lobe and lingular consolidation and atelectasis. No pleural effusion is observed. There is no pneumothorax. Tracheal mucus secretions. Scattered mucus plugging. The visualized upper abdomen is unremarkable. No acute osseous abnormality. Mild multilevel degenerative changes of the visualized spine. Incompletely visualized left rotator cuff repair. IMPRESSION: 1. Right upper lobe segmental pulmonary embolism. 2. Bilateral patchy areas of groundglass opacification most consistent with an multifocal pneumonia. Aspiration is also a possibility given the tracheal mucus secretions. Recommend follow-up CT chest in 3 months as malignancy cannot be excluded. 3. Left greater than right lower lobe and lingular consolidation and atelectasis. Recommend attention on follow-up. 4. Mediastinal and left hilar enlarged lymph nodes may be reactive. Recommend attention on follow-up. PQRS Compliance Statement: One or more of the following individualized dose reduction techniques were utilized for this examination: 1. Automated exposure control 2. Adjustment of the mA and/or kV according to patient size 3. Use of iterative reconstruction technique Electronically signed by: Francisco Espinoza MD (11/30/2016 6:34 PM) [facility] – [place]
[2016-11-30] MEDS: ACETAMINOPHEN 325 MG TABLET. PO PRN (18:44)
[2016-11-30] MEDS ORDERED: VANCOMYCIN 1 GM in IV NORMAL SALINE 250ML 250 ML IV ONE (18:45)
--- NOTE | 2016-11-30 19:03 | RAD ---
Chest radiograph November 30, 2014 at 5:24 PM INDICATION: Low oxygen saturation, shortness of air COMPARISON: CT angiography chest November 30, 2016 TECHNIQUE: Single portable semiupright frontal view of the chest is provided. FINDINGS: Cardiomediastinal silhouette is within normal limits. There is a left lower lobe airspace consolidation. There is right basilar subsegmental atelectasis. No pulmonary vascular congestion. No pneumothorax. No pleural effusions. IMPRESSION: Left lower lobe airspace consolidation which may represent pneumonia in appropriate clinical setting. Electronically signed by: Tami Montgomery MD (11/30/2016 7:00 PM) [facility]
[2016-11-30 19:39] LABS: BASO # 0.1 x10^3/uL (0.0-0.2); BASO % 0 % (0-3); EOS % 1 % (0-3); HEMATOCRIT 27.3 % (36.0-47.0); HEMOGLOBIN 8.9 g/dL (12.0-15.5); LYMPH # 1.3 x10^3/uL (1.0-4.8); LYMPH % 9 % (24-48); MEAN CORPUSCULAR HEMOGLOBIN 27 pg (25-35); MEAN CORPUSCULAR HGB CONC 32 g/dL (31-37); MEAN CORPUSCULAR VOLUME 84 fL (79-100); MONO % 6 % (0-9); NEUT % 84 % (31-73); PLATELET COUNT 321 x10^3/uL (140-400); RED BLOOD COUNT 3.24 x10^6/uL (3.50-5.40); RED CELL DISTRIBUTION WIDTH 14.9 % (11.5-14.5)
[2016-11-30 19:51] LABS: CORRECTED PCO2 ABG 42 mmHg; CORRECTED PO2 ABG 86 mmHg; HCO3 ABG 25 mmol/L (21-28); PCO2 ABG 38 mmHg (35-46); PH ABG 7.43 (7.35-7.45); PO2 ABG 73 mmHg (65-108); SAT O2 ABG 94 % (92-99)
[2016-11-30 19:52] LABS: FIO2 ABG 50
[2016-11-30] MEDS ORDERED: NOREPINEPHRIN PREMIX 250 ML IV ONE (19:52)
[2016-11-30] MEDS ORDERED: ALBUTEROL SULFATE 2.5 MG/3 ML NEBU. NEB SCH (20:00)
[2016-11-30] MEDS ORDERED: ROCURONIUM 50 MG/5 ML VIAL. ONE (20:00)
[2016-11-30] MEDS ORDERED: BUDESONIDE 0.5 MG/2 ML NEBU. NEB SCH (20:00)
[2016-11-30 20:10] LABS: CALCIUM 8.3 mg/dL (8.5-10.1); CREATININE 0.9 mg/dL (0.6-1.0); GFR 64.1; POTASSIUM 3.9 mmol/L (3.5-5.1)
[2016-11-30] MEDS ORDERED: NOREPINEPHRIN PREMIX 250 ML IV PRN (20:15)
[2016-11-30] MEDS ORDERED: IV NORMAL SALINE 1000ML BAG 1,000 ML IV ONE ×3 (20:15)
[2016-11-30] MEDS ORDERED: PROPOFOL 100 ML IV ONE (20:20)
[2016-11-30] MEDS: PROPOFOL 100 ML IV PRN (20:39)
[2016-11-30] MEDS: HYDROCORTISONE SOD SUCC/PF 100 MG/2 ML VIAL. IV SCH (20:45)
[2016-11-30] MEDS: PIPERACILLIN/TAZOBACTAM 3.375 GM in IV NORMAL SALINE 50ML 50 ML IV SCH (20:52)
--- NOTE | 2016-11-30 21:18 | PDOC ---
SURGICAL PROGRESS NOTE Subjective Events noted, d/w nursing Pt intubated secondary to tachypnea VSS currently on some pressors imaging and labs reviewed, appreciate pulm involvement abd soft, ND, NTTP, ostomy fxn and viable, incision c/d/i Vital Signs Vital Signs Date Time Temp Pulse Resp B/P (MAP) Pulse Ox O2 Delivery O2 Flow Rate FiO2 11/30/16 20:15 100 Ventilator 11/30/16 19:45 15.0 11/30/16 17:00 103.0 114 36 117/63 (81) 103.0 I&O Intake and Output 12/01/16 07:00 Intake Total 1797 ml Output Total 1050 ml Balance 747 ml Intake Oral 1525 ml IV Total 272 ml Output Urine Total 650 ml Stool Total 400 ml Labs Laboratory Tests Test 11/29/16 04:27 11/29/16 10:10 11/30/16 19:20 11/30/16 19:45 Sodium Level 136 mmol/L (136-145) 132 mmol/L (136-145) Potassium Level 4.0 mmol/L (3.5-5.1) 3.9 mmol/L (3.5-5.1) Chloride Level 101 mmol/L (98-107) 97 mmol/L (98-107) Carbon Dioxide Level 26 mmol/L (21-32) 26 mmol/L (21-32) Anion Gap 9 (6-14) 9 (6-14) Blood Urea Nitrogen 8 mg/dL (7-20) 9 mg/dL (7-20) Creatinine 0.9 mg/dL (0.6-1.0) 0.9 mg/dL (0.6-1.0) Estimated GFR (Cockcroft-Gault) 64.1 64.1 Glucose Level 116 mg/dL (70-99) 105 mg/dL (70-99) Calcium Level 8.8 mg/dL (8.5-10.1) 8.3 mg/dL (8.5-10.1) White Blood Count 10.2 x10^3/uL (4.0-11.0) 15.0 x10^3/uL (4.0-11.0) Red Blood Count 3.28 x10^6/uL (3.50-5.40) 3.24 x10^6/uL (3.50-5.40) Hemoglobin 9.0 g/dL (12.0-15.5) 8.9 g/dL (12.0-15.5) Hematocrit 27.9 % (36.0-47.0) 27.3 % (36.0-47.0) Mean Corpuscular Volume 85 fL (79-100) 84 fL (79-100) Mean Corpuscular Hemoglobin 27 pg (25-35) 27 pg (25-35) Mean Corpuscular Hemoglobin Concent 32 g/dL (31-37) 32 g/dL (31-37) Red Cell Distribution Width 14.9 % (11.5-14.5) 14.9 % (11.5-14.5) Platelet Count 316 x10^3/uL (140-400) 321 x10^3/uL (140-400) Neutrophils (%) (Auto) 75 % (31-73) 84 % (31-73) Lymphocytes (%) (Auto) 19 % (24-48) 9 % (24-48) Monocytes (%) (Auto) 6 % (0-9) 6 % (0-9) Eosinophils (%) (Auto) 0 % (0-3) 1 % (0-3) Basophils (%) (Auto) 0 % (0-3) 0 % (0-3) Neutrophils # (Auto) 7.6 x10^3uL (1.8-7.7) 12.7 x10^3uL (1.8-7.7) Lymphocytes # (Auto) 1.9 x10^3/uL (1.0-4.8) 1.3 x10^3/uL (1.0-4.8) Monocytes # (Auto) 0.7 x10^3/uL (0.0-1.1) 0.9 x10^3/uL (0.0-1.1) Eosinophils # (Auto) 0.0 x10^3/uL (0.0-0.7) 0.1 x10^3/uL (0.0-0.7) Basophils # (Auto) 0.0 x10^3/uL (0.0-0.2) 0.1 x10^3/uL (0.0-0.2) Lactic Acid Level 0.7 mmol/L (0.4-2.0) Test 11/30/16 19:50 O2 Saturation 94 % (92-99) Arterial Blood pH 7.43 (7.35-7.45) Arterial Blood pH (Temp corrected) 7.40 Arterial Blood pCO2 at Patient Temp 38 mmHg (35-46) Arterial Blood pCO2 (Temp correct) 42 mmHg Arterial Blood pO2 at Patient Temp 73 mmHg (65-108) Arterial Blood pO2 (Temp corrected) 86 mmHg Arterial Blood HCO3 25 mmol/L (21-28) Arterial Blood Base Excess 0 mmol/L (-3-3) FiO2 50 Laboratory Tests Test 11/30/16 19:20 11/30/16 19:45 11/30/16 19:50 White Blood Count 15.0 x10^3/uL (4.0-11.0) Red Blood Count 3.24 x10^6/uL (3.50-5.40) Hemoglobin 8.9 g/dL (12.0-15.5) Hematocrit 27.3 % (36.0-47.0) Mean Corpuscular Volume 84 fL (79-100) Mean Corpuscular Hemoglobin 27 pg (25-35) Mean Corpuscular Hemoglobin Concent 32 g/dL (31-37) Red Cell Distribution Width 14.9 % (11.5-14.5) Platelet Count 321 x10^3/uL (140-400) Neutrophils (%) (Auto) 84 % (31-73) Lymphocytes (%) (Auto) 9 % (24-48) Monocytes (%) (Auto) 6 % (0-9) Eosinophils (%) (Auto) 1 % (0-3) Basophils (%) (Auto) 0 % (0-3) Neutrophils # (Auto) 12.7 x10^3uL (1.8-7.7) Lymphocytes # (Auto) 1.3 x10^3/uL (1.0-4.8) Monocytes # (Auto) 0.9 x10^3/uL (0.0-1.1) Eosinophils # (Auto) 0.1 x10^3/uL (0.0-0.7) Basophils # (Auto) 0.1 x10^3/uL (0.0-0.2) Lactic Acid Level 0.7 mmol/L (0.4-2.0) Sodium Level 132 mmol/L (136-145) Potassium Level 3.9 mmol/L (3.5-5.1) Chloride Level 97 mmol/L (98-107) Carbon Dioxide Level 26 mmol/L (21-32) Anion Gap 9 (6-14) Blood Urea Nitrogen 9 mg/dL (7-20) Creatinine 0.9 mg/dL (0.6-1.0) Estimated GFR (Cockcroft-Gault) 64.1 Glucose Level 105 mg/dL (70-99) Calcium Level 8.3 mg/dL (8.5-10.1) O2 Saturation 94 % (92-99) Arterial Blood pH 7.43 (7.35-7.45) Arterial Blood pH (Temp corrected) 7.40 Arterial Blood pCO2 at Patient Temp 38 mmHg (35-46) Arterial Blood pCO2 (Temp correct) 42 mmHg Arterial Blood pO2 at Patient Temp 73 mmHg (65-108) Arterial Blood pO2 (Temp corrected) 86 mmHg Arterial Blood HCO3 25 mmol/L (21-28) Arterial Blood Base Excess 0 mmol/L (-3-3) FiO2 50 Problem List Problems Medical Problems: (1) Abdominal pain Status: Acute Problems: LETICIA KAUFFMAN MD Nov 30, 2016 21:18
--- NOTE | 2016-11-30 21:21 | RAD ---
Chest radiograph November 30, 2016 at 8:29 PM INDICATION: ET tube placement COMPARISON: Chest radiograph November 30, 2016 at 5:24 PM TECHNIQUE: Single portable supine view of the chest is provided. FINDINGS: An endotracheal tube is identified with the distal tip projecting 4.3 cm above the level of the [place]. Nasogastric tube is identified coursing below the level of the diaphragm with the distal tip not visualized on this radiograph. The mediastinal silhouette is similar in appearance. Small left pleural effusion with adjacent atelectasis and/or infiltrate is noted. Mild pulmonary vascular congestion. SPECT technique limits evaluation for pneumothorax. IMPRESSION: 1. Endotracheal tube terminates 4.3 cm above the [place]. Supine technique limits evaluation for pneumothorax. 2. There is worsening aeration of the left lower lobe, likely secondary to supine technique. Electronically signed by: Tami Montgomery MD (11/30/2016 9:18 PM) [facility]
[2016-11-30] MEDS ORDERED: HEPARIN for IV BOLUS 10,000 UNIT/10 ML VIAL. IV PRN ×2 (21:30)
[2016-11-30 21:54] LABS: FIO2 ABG 100; HCO3 ABG 23 mmol/L (21-28); PCO2 ABG 38 mmHg (35-46); PH ABG 7.39 (7.35-7.45); PO2 ABG 275 mmHg (65-108); SAT O2 ABG 99 % (92-99)
[2016-11-30] MEDS: HEPARIN 25,000UTS/500ML PREMIX 500 ML IV PRN (21:58)
[2016-11-30] MEDS ORDERED: HEPARIN for IV BOLUS 10,000 UNIT/10 ML VIAL. IV ONE (22:00)
[2016-12-01] VITALS (26 sets, daily range): BP systolic 79–148; BP diastolic 47–76
[2016-12-01] MEDS: MAGNESIUM OXIDE 400 MG TABLET PO SCH ×5 (00:09→21:02)
[2016-12-01] MEDS: GABAPENTIN 300 MG CAPSULE. PO SCH ×4 (00:09→21:02)
[2016-12-01] MEDS: ALPRAZolam 1 MG TABLET PO PRN ×3 (00:09→15:07)
[2016-12-01] MEDS: ATORVASTATIN CALCIUM 20 MG TABLET PO SCH ×2 (00:09→21:02)
[2016-12-01] MEDS: PIPERACILLIN/TAZOBACTAM 3.375 GM in IV NORMAL SALINE 50ML 50 ML IV SCH ×2 (00:15→05:41)
[2016-12-01] MEDS: HYDROCORTISONE SOD SUCC/PF 100 MG/2 ML VIAL. IV SCH ×4 (00:16→22:11)
[2016-12-01] MEDS ORDERED: ROCURONIUM 50 MG/5 ML VIAL. IV ONE (04:45)
[2016-12-01 05:37] LABS: BASO % 0 % (0-3); EOS % 0 % (0-3); HEMATOCRIT 27.1 % (36.0-47.0); LYMPH # 1.1 x10^3/uL (1.0-4.8); LYMPH % 5 % (24-48); MEAN CORPUSCULAR HEMOGLOBIN 28 pg (25-35); MEAN CORPUSCULAR HGB CONC 33 g/dL (31-37); MEAN CORPUSCULAR VOLUME 84 fL (79-100); MONO % 3 % (0-9); NEUT % 92 % (31-73); PLATELET COUNT 384 x10^3/uL (140-400); RED BLOOD COUNT 3.25 x10^6/uL (3.50-5.40); RED CELL DISTRIBUTION WIDTH 15.5 % (11.5-14.5); WHITE BLOOD COUNT 23.3 x10^3/uL (4.0-11.0)
[2016-12-01 05:52] LABS: ALBUMIN 2.3 g/dL (3.4-5.0); ALBUMIN/GLOBULIN RATIO 0.6 (1.0-1.7); CALCIUM 8.5 mg/dL (8.5-10.1); CREATININE 0.8 mg/dL (0.6-1.0); GFR 73.4; MAGNESIUM 1.9 mg/dL (1.8-2.4); POTASSIUM 3.6 mmol/L (3.5-5.1); TOTAL BILIRUBIN 0.5 mg/dL (0.2-1.0); TOTAL PROTEIN 6.1 g/dL (6.4-8.2)
[2016-12-01] MEDS: LEVOTHYROXINE 150 MCG TABLET PO SCH (05:52)
[2016-12-01] MEDS: PROPOFOL 100 ML IV PRN ×3 (06:32→21:00)
[2016-12-01 07:28] LABS: ANISOCYTOSIS PRESENT; PLT ESTIMATE INCREASED (ADEQUATE)
[2016-12-01] MEDS: PANTOPRAZOLE 40 MG TABLET.DR. PO SCH (07:30)
[2016-12-01] MEDS: ALBUTEROL SULFATE 2.5 MG/3 ML NEBU. NEB SCH ×4 (07:38→19:16)
[2016-12-01] MEDS: BUDESONIDE 0.5 MG/2 ML NEBU. NEB SCH ×2 (07:38→19:16)
[2016-12-01] MEDS: POTASSIUM CHLORIDE 20 MEQ TABLET.ER. PO SCH (08:00)
--- NOTE | 2016-12-01 08:05 | PDOC ---
Provider Note Provider Note [id number] acute resp fail septic shock\ pneumonia pe cont vent support BALDO DON MD Dec 01, 2016 08:05
--- NOTE | 2016-12-01 08:46 | PDOC ---
SURGICAL PROGRESS NOTE Subjective Pt awake on vent, appears comfortable, mores stable today Vital Signs Vital Signs Date Time Temp Pulse Resp B/P (MAP) Pulse Ox O2 Delivery O2 Flow Rate FiO2 12/01/16 08:00 66 18 125/72 (89) 98 Ventilator 12/01/16 07:00 97.4 97.4 11/30/16 20:00 15.0 I&O Intake and Output 12/02/16 07:00 Output Total 100 ml Balance -100 ml Output Urine Total 100 ml General: Alert, No acute distress Abdomen: Soft, No tenderness Labs Laboratory Tests Test 11/29/16 10:10 11/30/16 19:20 11/30/16 19:45 11/30/16 19:50 White Blood Count 10.2 x10^3/uL (4.0-11.0) 15.0 x10^3/uL (4.0-11.0) Red Blood Count 3.28 x10^6/uL (3.50-5.40) 3.24 x10^6/uL (3.50-5.40) Hemoglobin 9.0 g/dL (12.0-15.5) 8.9 g/dL (12.0-15.5) Hematocrit 27.9 % (36.0-47.0) 27.3 % (36.0-47.0) Mean Corpuscular Volume 85 fL (79-100) 84 fL (79-100) Mean Corpuscular Hemoglobin 27 pg (25-35) 27 pg (25-35) Mean Corpuscular Hemoglobin Concent 32 g/dL (31-37) 32 g/dL (31-37) Red Cell Distribution Width 14.9 % (11.5-14.5) 14.9 % (11.5-14.5) Platelet Count 316 x10^3/uL (140-400) 321 x10^3/uL (140-400) Neutrophils (%) (Auto) 75 % (31-73) 84 % (31-73) Lymphocytes (%) (Auto) 19 % (24-48) 9 % (24-48) Monocytes (%) (Auto) 6 % (0-9) 6 % (0-9) Eosinophils (%) (Auto) 0 % (0-3) 1 % (0-3) Basophils (%) (Auto) 0 % (0-3) 0 % (0-3) Neutrophils # (Auto) 7.6 x10^3uL (1.8-7.7) 12.7 x10^3uL (1.8-7.7) Lymphocytes # (Auto) 1.9 x10^3/uL (1.0-4.8) 1.3 x10^3/uL (1.0-4.8) Monocytes # (Auto) 0.7 x10^3/uL (0.0-1.1) 0.9 x10^3/uL (0.0-1.1) Eosinophils # (Auto) 0.0 x10^3/uL (0.0-0.7) 0.1 x10^3/uL (0.0-0.7) Basophils # (Auto) 0.0 x10^3/uL (0.0-0.2) 0.1 x10^3/uL (0.0-0.2) Lactic Acid Level 0.7 mmol/L (0.4-2.0) Sodium Level 132 mmol/L (136-145) Potassium Level 3.9 mmol/L (3.5-5.1) Chloride Level 97 mmol/L (98-107) Carbon Dioxide Level 26 mmol/L (21-32) Anion Gap 9 (6-14) Blood Urea Nitrogen 9 mg/dL (7-20) Creatinine 0.9 mg/dL (0.6-1.0) Estimated GFR (Cockcroft-Gault) 64.1 Glucose Level 105 mg/dL (70-99) Calcium Level 8.3 mg/dL (8.5-10.1) O2 Saturation 94 % (92-99) Arterial Blood pH 7.43 (7.35-7.45) Arterial Blood pH (Temp corrected) 7.40 Arterial Blood pCO2 at Patient Temp 38 mmHg (35-46) Arterial Blood pCO2 (Temp correct) 42 mmHg Arterial Blood pO2 at Patient Temp 73 mmHg (65-108) Arterial Blood pO2 (Temp corrected) 86 mmHg Arterial Blood HCO3 25 mmol/L (21-28) Arterial Blood Base Excess 0 mmol/L (-3-3) FiO2 50 Test 11/30/16 21:45 12/01/16 02:00 12/01/16 03:12 O2 Saturation 99 % (92-99) Arterial Blood pH 7.39 (7.35-7.45) Arterial Blood pCO2 at Patient Temp 38 mmHg (35-46) Arterial Blood pO2 at Patient Temp 275 mmHg (65-108) Arterial Blood HCO3 23 mmol/L (21-28) Arterial Blood Base Excess -2 mmol/L (-3-3) FiO2 100 White Blood Count 23.3 x10^3/uL (4.0-11.0) Red Blood Count 3.25 x10^6/uL (3.50-5.40) Hemoglobin 9.0 g/dL (12.0-15.5) Hematocrit 27.1 % (36.0-47.0) Mean Corpuscular Volume 84 fL (79-100) Mean Corpuscular Hemoglobin 28 pg (25-35) Mean Corpuscular Hemoglobin Concent 33 g/dL (31-37) Red Cell Distribution Width 15.5 % (11.5-14.5) Platelet Count 384 x10^3/uL (140-400) Neutrophils (%) (Auto) 92 % (31-73) Lymphocytes (%) (Auto) 5 % (24-48) Monocytes (%) (Auto) 3 % (0-9) Eosinophils (%) (Auto) 0 % (0-3) Basophils (%) (Auto) 0 % (0-3) Neutrophils # (Auto) 21.4 x10^3uL (1.8-7.7) Lymphocytes # (Auto) 1.1 x10^3/uL (1.0-4.8) Monocytes # (Auto) 0.7 x10^3/uL (0.0-1.1) Eosinophils # (Auto) 0.0 x10^3/uL (0.0-0.7) Basophils # (Auto) 0.0 x10^3/uL (0.0-0.2) Segmented Neutrophils % 81 % (35-66) Band Neutrophils % 14 % (0-9) Lymphocytes % 2 % (24-48) Monocytes % 3 % (0-10) Platelet Estimate Increased (ADEQUATE) Anisocytosis Present Sodium Level 139 mmol/L (136-145) Potassium Level 3.6 mmol/L (3.5-5.1) Chloride Level 103 mmol/L (98-107) Carbon Dioxide Level 24 mmol/L (21-32) Anion Gap 12 (6-14) Blood Urea Nitrogen 7 mg/dL (7-20) Creatinine 0.8 mg/dL (0.6-1.0) Estimated GFR (Cockcroft-Gault) 73.4 BUN/Creatinine Ratio 9 (6-20) Glucose Level 142 mg/dL (70-99) Calcium Level 8.5 mg/dL (8.5-10.1) Magnesium Level 1.9 mg/dL (1.8-2.4) Total Bilirubin 0.5 mg/dL (0.2-1.0) Aspartate Amino Transf (AST/SGOT) 16 U/L (15-37) Alanine Aminotransferase (ALT/SGPT) 12 U/L (14-59) Alkaline Phosphatase 134 U/L (46-116) Total Protein 6.1 g/dL (6.4-8.2) Albumin 2.3 g/dL (3.4-5.0) Albumin/Globulin Ratio 0.6 (1.0-1.7) Heparin Anti-Xa Act, Unfractionated 1.03 IU/mL (0.30-0.70) Laboratory Tests Test 11/30/16 19:20 11/30/16 19:45 11/30/16 19:50 11/30/16 21:45 White Blood Count 15.0 x10^3/uL (4.0-11.0) Red Blood Count 3.24 x10^6/uL (3.50-5.40) Hemoglobin 8.9 g/dL (12.0-15.5) Hematocrit 27.3 % (36.0-47.0) Mean Corpuscular Volume 84 fL (79-100) Mean Corpuscular Hemoglobin 27 pg (25-35) Mean Corpuscular Hemoglobin Concent 32 g/dL (31-37) Red Cell Distribution Width 14.9 % (11.5-14.5) Platelet Count 321 x10^3/uL (140-400) Neutrophils (%) (Auto) 84 % (31-73) Lymphocytes (%) (Auto) 9 % (24-48) Monocytes (%) (Auto) 6 % (0-9) Eosinophils (%) (Auto) 1 % (0-3) Basophils (%) (Auto) 0 % (0-3) Neutrophils # (Auto) 12.7 x10^3uL (1.8-7.7) Lymphocytes # (Auto) 1.3 x10^3/uL (1.0-4.8) Monocytes # (Auto) 0.9 x10^3/uL (0.0-1.1) Eosinophils # (Auto) 0.1 x10^3/uL (0.0-0.7) Basophils # (Auto) 0.1 x10^3/uL (0.0-0.2) Lactic Acid Level 0.7 mmol/L (0.4-2.0) Sodium Level 132 mmol/L (136-145) Potassium Level 3.9 mmol/L (3.5-5.1) Chloride Level 97 mmol/L (98-107) Carbon Dioxide Level 26 mmol/L (21-32) Anion Gap 9 (6-14) Blood Urea Nitrogen 9 mg/dL (7-20) Creatinine 0.9 mg/dL (0.6-1.0) Estimated GFR (Cockcroft-Gault) 64.1 Glucose Level 105 mg/dL (70-99) Calcium Level 8.3 mg/dL (8.5-10.1) O2 Saturation 94 % (92-99) 99 % (92-99) Arterial Blood pH 7.43 (7.35-7.45) 7.39 (7.35-7.45) Arterial Blood pH (Temp corrected) 7.40 Arterial Blood pCO2 at Patient Temp 38 mmHg (35-46) 38 mmHg (35-46) Arterial Blood pCO2 (Temp correct) 42 mmHg Arterial Blood pO2 at Patient Temp 73 mmHg (65-108) 275 mmHg (65-108) Arterial Blood pO2 (Temp corrected) 86 mmHg Arterial Blood HCO3 25 mmol/L (21-28) 23 mmol/L (21-28) Arterial Blood Base Excess 0 mmol/L (-3-3) -2 mmol/L (-3-3) FiO2 50 100 Test 12/01/16 02:00 12/01/16 03:12 White Blood Count 23.3 x10^3/uL (4.0-11.0) Red Blood Count 3.25 x10^6/uL (3.50-5.40) Hemoglobin 9.0 g/dL (12.0-15.5) Hematocrit 27.1 % (36.0-47.0) Mean Corpuscular Volume 84 fL (79-100) Mean Corpuscular Hemoglobin 28 pg (25-35) Mean Corpuscular Hemoglobin Concent 33 g/dL (31-37) Red Cell Distribution Width 15.5 % (11.5-14.5) Platelet Count 384 x10^3/uL (140-400) Neutrophils (%) (Auto) 92 % (31-73) Lymphocytes (%) (Auto) 5 % (24-48) Monocytes (%) (Auto) 3 % (0-9) Eosinophils (%) (Auto) 0 % (0-3) Basophils (%) (Auto) 0 % (0-3) Neutrophils # (Auto) 21.4 x10^3uL (1.8-7.7) Lymphocytes # (Auto) 1.1 x10^3/uL (1.0-4.8) Monocytes # (Auto) 0.7 x10^3/uL (0.0-1.1) Eosinophils # (Auto) 0.0 x10^3/uL (0.0-0.7) Basophils # (Auto) 0.0 x10^3/uL (0.0-0.2) Segmented Neutrophils % 81 % (35-66) Band Neutrophils % 14 % (0-9) Lymphocytes % 2 % (24-48) Monocytes % 3 % (0-10) Platelet Estimate Increased (ADEQUATE) Anisocytosis Present Sodium Level 139 mmol/L (136-145) Potassium Level 3.6 mmol/L (3.5-5.1) Chloride Level 103 mmol/L (98-107) Carbon Dioxide Level 24 mmol/L (21-32) Anion Gap 12 (6-14) Blood Urea Nitrogen 7 mg/dL (7-20) Creatinine 0.8 mg/dL (0.6-1.0) Estimated GFR (Cockcroft-Gault) 73.4 BUN/Creatinine Ratio 9 (6-20) Glucose Level 142 mg/dL (70-99) Calcium Level 8.5 mg/dL (8.5-10.1) Magnesium Level 1.9 mg/dL (1.8-2.4) Total Bilirubin 0.5 mg/dL (0.2-1.0) Aspartate Amino Transf (AST/SGOT) 16 U/L (15-37) Alanine Aminotransferase (ALT/SGPT) 12 U/L (14-59) Alkaline Phosphatase 134 U/L (46-116) Total Protein 6.1 g/dL (6.4-8.2) Albumin 2.3 g/dL (3.4-5.0) Albumin/Globulin Ratio 0.6 (1.0-1.7) Heparin Anti-Xa Act, Unfractionated 1.03 IU/mL (0.30-0.70) Problem List Problems Medical Problems: (1) Abdominal pain Status: Acute Assessment/Plan s/p hernia repair appreciate pulm support Problems: LETICIA KAUFFMAN MD Dec 01, 2016 08:46
--- NOTE | 2016-12-01 08:54 | CONS ---
DATE OF CONSULTATION: 12/01/2016 I was asked to see this 61-year-old lady for acute respiratory failure, septic shock. She has history of ileostomy, was admitted on 11/26/2016 with abdominal pain, nausea and vomiting. She underwent exploratory laparotomy, lysis of adhesions, revision of ileostomy, repair of parasternal hernia, repair of incisional hernia on 11/28/2016. Yesterday, she started to have increased shortness of breath, cough. She was tachypneic. A CT of the chest was done which did show right upper lobe segmental pulmonary embolism, bilateral patchy area of ground-glass opacification most consistent with multifocal pneumonia, left greater than right lower lobe and lingular consolidation, mediastinal hilar lymphadenopathy. Her respiratory status did get worse and she was intubated. She is currently on the ventilator. She is on 35% FiO2. She is on Levophed. She has a large amount of ET tube secretion. PAST MEDICAL HISTORY: Chronic urinary retention, chronic abdominal pain, COPD, coronary artery disease status post stent, hyperlipidemia, depression, anxiety, back pain, fibromyalgia, status post hysterectomy, cholecystectomy, colectomy, ileostomy and multiple ventral hernias. ALLERGIES: DOXYCYCLINE, PHENYTOIN, PREGABALIN. MEDICATIONS: Currently, she is on Levophed, heparin drip, albuterol, propofol, Solu-Cortef 50 mg IV every 6, Zosyn, vancomycin, Zofran, fentanyl, levothyroxine, Pulmicort, Protonix, Lasix, aspirin and Xanax. SOCIAL HISTORY: Has significant history of smoking. Details are not known. FAMILY HISTORY: Positive for hypertension. REVIEW OF SYSTEMS: As mentioned above. I have discussed the patient with RN and RT. Other systems are otherwise negative. PHYSICAL EXAMINATION: GENERAL: This is an obese lady. VITAL SIGNS: Her O2 saturation is 96%, respiratory rate 16, heart rate 64, blood pressure 126/64, temperature 97.4. HEENT: Normocephalic, atraumatic. Pupils are equal, round, reactive to light. Nose is clear. She is orally intubated. NECK: There is no JVD, lymphadenopathy or thyromegaly. CARDIOVASCULAR: Regular rate and rhythm. PMI is nondisplaced. CHEST: Inspection is normal. LUNGS: There are bibasilar crackles, dullness at the bases. ABDOMEN: Soft and obese. There is no mass. There is an ileostomy in place. EXTREMITIES: There is edema. LYMPHATICS: There is no lymphadenopathy. NEUROLOGIC: She is sedated on the ventilator. Off sedation, she follows commands. SKIN: Chronic changes. LABORATORY DATA: I reviewed the following lab data: CT of the chest as mentioned as above. Chest x-ray shows ET tube is in good position. There is left infiltrate/atelectasis/effusion. WBC 23.3, hemoglobin 9, platelets 384. Sodium 139, potassium 3.6, chloride 103, CO2 of 24, glucose 142, BUN 7, creatinine 0.8. Total bilirubin 0.5, AST 16, ALT 12, albumin 2.3. ABG last night after intubation pH of 7.39, pCO2 of 38, pO2 of 175 on assist control rate of 16, tidal volume 500, FiO2 of 100%. IMPRESSION: 1. Acute respiratory failure, multifactorial in etiology including bacterial pneumonia (hcap, aspiration), pulmonary embolism, chronic obstructive pulmonary disease with acute exacerbation, septic shock versus others. 2. Abnormal chest x-ray and CT of the chest. 3. Pulmonary infiltrate and mediastinal lymphadenopathy. 4. Pulmonary embolism. 5. Status post exploratory laparotomy and revision of ileostomy. 6. Leukocytosis. 7. Coronary artery disease. 8. Obesity. PLAN AND RECOMMENDATIONS: 1. Titrate FiO2 to keep O2 saturation 94%. 2. Continue ventilator support until the patient is more stable. Ventilator setting was reviewed. 3. Bronchodilator. 4. Continue Pulmicort. 5. I will change Solu-Cortef to every 8 hours. 6. Continue Protonix. 7. Continue heparin drip. Monitor for bleeding. 8. Elevate head of bed. 9. May start tube feeding. 10. A.m. ABG and portable chest x-ray. 11. The findings and recommendations were discussed with RN and RT. Thank you very much for allowing me to participate in care of this very nice lady. BALDO DON M.D. DR: RILEY/joshua JOB#: [id number] / [id number] MICHELLE
[2016-12-01] MEDS: FUROSEMIDE 40 MG TABLET. PO SCH (08:55)
[2016-12-01] MEDS: VARENICLINE 0.5 MG TABLET. PO SCH ×2 (08:55→21:00)
--- NOTE | 2016-12-01 09:18 | PDOC ---
G I PROGRESS NOTE Subjective Events of last evening noted. Currently on ventilator, but communicates with writing. No abdominal complaints. Physical Exam Lungs clear anteriorly. RRR Abdomen soft, not distended. Bowel sounds present. Review of Relevant I have reviewed the following items chris (where applicable) has been applied. Labs Laboratory Tests Test 11/29/16 10:10 11/30/16 19:20 11/30/16 19:45 11/30/16 19:50 White Blood Count 10.2 x10^3/uL (4.0-11.0) 15.0 x10^3/uL (4.0-11.0) Red Blood Count 3.28 x10^6/uL (3.50-5.40) 3.24 x10^6/uL (3.50-5.40) Hemoglobin 9.0 g/dL (12.0-15.5) 8.9 g/dL (12.0-15.5) Hematocrit 27.9 % (36.0-47.0) 27.3 % (36.0-47.0) Mean Corpuscular Volume 85 fL (79-100) 84 fL (79-100) Mean Corpuscular Hemoglobin 27 pg (25-35) 27 pg (25-35) Mean Corpuscular Hemoglobin Concent 32 g/dL (31-37) 32 g/dL (31-37) Red Cell Distribution Width 14.9 % (11.5-14.5) 14.9 % (11.5-14.5) Platelet Count 316 x10^3/uL (140-400) 321 x10^3/uL (140-400) Neutrophils (%) (Auto) 75 % (31-73) 84 % (31-73) Lymphocytes (%) (Auto) 19 % (24-48) 9 % (24-48) Monocytes (%) (Auto) 6 % (0-9) 6 % (0-9) Eosinophils (%) (Auto) 0 % (0-3) 1 % (0-3) Basophils (%) (Auto) 0 % (0-3) 0 % (0-3) Neutrophils # (Auto) 7.6 x10^3uL (1.8-7.7) 12.7 x10^3uL (1.8-7.7) Lymphocytes # (Auto) 1.9 x10^3/uL (1.0-4.8) 1.3 x10^3/uL (1.0-4.8) Monocytes # (Auto) 0.7 x10^3/uL (0.0-1.1) 0.9 x10^3/uL (0.0-1.1) Eosinophils # (Auto) 0.0 x10^3/uL (0.0-0.7) 0.1 x10^3/uL (0.0-0.7) Basophils # (Auto) 0.0 x10^3/uL (0.0-0.2) 0.1 x10^3/uL (0.0-0.2) Lactic Acid Level 0.7 mmol/L (0.4-2.0) Sodium Level 132 mmol/L (136-145) Potassium Level 3.9 mmol/L (3.5-5.1) Chloride Level 97 mmol/L (98-107) Carbon Dioxide Level 26 mmol/L (21-32) Anion Gap 9 (6-14) Blood Urea Nitrogen 9 mg/dL (7-20) Creatinine 0.9 mg/dL (0.6-1.0) Estimated GFR (Cockcroft-Gault) 64.1 Glucose Level 105 mg/dL (70-99) Calcium Level 8.3 mg/dL (8.5-10.1) O2 Saturation 94 % (92-99) Arterial Blood pH 7.43 (7.35-7.45) Arterial Blood pH (Temp corrected) 7.40 Arterial Blood pCO2 at Patient Temp 38 mmHg (35-46) Arterial Blood pCO2 (Temp correct) 42 mmHg Arterial Blood pO2 at Patient Temp 73 mmHg (65-108) Arterial Blood pO2 (Temp corrected) 86 mmHg Arterial Blood HCO3 25 mmol/L (21-28) Arterial Blood Base Excess 0 mmol/L (-3-3) FiO2 50 Test 11/30/16 21:45 12/01/16 02:00 12/01/16 03:12 O2 Saturation 99 % (92-99) Arterial Blood pH 7.39 (7.35-7.45) Arterial Blood pCO2 at Patient Temp 38 mmHg (35-46) Arterial Blood pO2 at Patient Temp 275 mmHg (65-108) Arterial Blood HCO3 23 mmol/L (21-28) Arterial Blood Base Excess -2 mmol/L (-3-3) FiO2 100 White Blood Count 23.3 x10^3/uL (4.0-11.0) Red Blood Count 3.25 x10^6/uL (3.50-5.40) Hemoglobin 9.0 g/dL (12.0-15.5) Hematocrit 27.1 % (36.0-47.0) Mean Corpuscular Volume 84 fL (79-100) Mean Corpuscular Hemoglobin 28 pg (25-35) Mean Corpuscular Hemoglobin Concent 33 g/dL (31-37) Red Cell Distribution Width 15.5 % (11.5-14.5) Platelet Count 384 x10^3/uL (140-400) Neutrophils (%) (Auto) 92 % (31-73) Lymphocytes (%) (Auto) 5 % (24-48) Monocytes (%) (Auto) 3 % (0-9) Eosinophils (%) (Auto) 0 % (0-3) Basophils (%) (Auto) 0 % (0-3) Neutrophils # (Auto) 21.4 x10^3uL (1.8-7.7) Lymphocytes # (Auto) 1.1 x10^3/uL (1.0-4.8) Monocytes # (Auto) 0.7 x10^3/uL (0.0-1.1) Eosinophils # (Auto) 0.0 x10^3/uL (0.0-0.7) Basophils # (Auto) 0.0 x10^3/uL (0.0-0.2) Segmented Neutrophils % 81 % (35-66) Band Neutrophils % 14 % (0-9) Lymphocytes % 2 % (24-48) Monocytes % 3 % (0-10) Platelet Estimate Increased (ADEQUATE) Anisocytosis Present Sodium Level 139 mmol/L (136-145) Potassium Level 3.6 mmol/L (3.5-5.1) Chloride Level 103 mmol/L (98-107) Carbon Dioxide Level 24 mmol/L (21-32) Anion Gap 12 (6-14) Blood Urea Nitrogen 7 mg/dL (7-20) Creatinine 0.8 mg/dL (0.6-1.0) Estimated GFR (Cockcroft-Gault) 73.4 BUN/Creatinine Ratio 9 (6-20) Glucose Level 142 mg/dL (70-99) Calcium Level 8.5 mg/dL (8.5-10.1) Magnesium Level 1.9 mg/dL (1.8-2.4) Total Bilirubin 0.5 mg/dL (0.2-1.0) Aspartate Amino Transf (AST/SGOT) 16 U/L (15-37) Alanine Aminotransferase (ALT/SGPT) 12 U/L (14-59) Alkaline Phosphatase 134 U/L (46-116) Total Protein 6.1 g/dL (6.4-8.2) Albumin 2.3 g/dL (3.4-5.0) Albumin/Globulin Ratio 0.6 (1.0-1.7) Heparin Anti-Xa Act, Unfractionated 1.03 IU/mL (0.30-0.70) Laboratory Tests Test 11/30/16 19:20 11/30/16 19:45 11/30/16 19:50 11/30/16 21:45 White Blood Count 15.0 x10^3/uL (4.0-11.0) Red Blood Count 3.24 x10^6/uL (3.50-5.40) Hemoglobin 8.9 g/dL (12.0-15.5) Hematocrit 27.3 % (36.0-47.0) Mean Corpuscular Volume 84 fL (79-100) Mean Corpuscular Hemoglobin 27 pg (25-35) Mean Corpuscular Hemoglobin Concent 32 g/dL (31-37) Red Cell Distribution Width 14.9 % (11.5-14.5) Platelet Count 321 x10^3/uL (140-400) Neutrophils (%) (Auto) 84 % (31-73) Lymphocytes (%) (Auto) 9 % (24-48) Monocytes (%) (Auto) 6 % (0-9) Eosinophils (%) (Auto) 1 % (0-3) Basophils (%) (Auto) 0 % (0-3) Neutrophils # (Auto) 12.7 x10^3uL (1.8-7.7) Lymphocytes # (Auto) 1.3 x10^3/uL (1.0-4.8) Monocytes # (Auto) 0.9 x10^3/uL (0.0-1.1) Eosinophils # (Auto) 0.1 x10^3/uL (0.0-0.7) Basophils # (Auto) 0.1 x10^3/uL (0.0-0.2) Lactic Acid Level 0.7 mmol/L (0.4-2.0) Sodium Level 132 mmol/L (136-145) Potassium Level 3.9 mmol/L (3.5-5.1) Chloride Level 97 mmol/L (98-107) Carbon Dioxide Level 26 mmol/L (21-32) Anion Gap 9 (6-14) Blood Urea Nitrogen 9 mg/dL (7-20) Creatinine 0.9 mg/dL (0.6-1.0) Estimated GFR (Cockcroft-Gault) 64.1 Glucose Level 105 mg/dL (70-99) Calcium Level 8.3 mg/dL (8.5-10.1) O2 Saturation 94 % (92-99) 99 % (92-99) Arterial Blood pH 7.43 (7.35-7.45) 7.39 (7.35-7.45) Arterial Blood pH (Temp corrected) 7.40 Arterial Blood pCO2 at Patient Temp 38 mmHg (35-46) 38 mmHg (35-46) Arterial Blood pCO2 (Temp correct) 42 mmHg Arterial Blood pO2 at Patient Temp 73 mmHg (65-108) 275 mmHg (65-108) Arterial Blood pO2 (Temp corrected) 86 mmHg Arterial Blood HCO3 25 mmol/L (21-28) 23 mmol/L (21-28) Arterial Blood Base Excess 0 mmol/L (-3-3) -2 mmol/L (-3-3) FiO2 50 100 Test 12/01/16 02:00 12/01/16 03:12 White Blood Count 23.3 x10^3/uL (4.0-11.0) Red Blood Count 3.25 x10^6/uL (3.50-5.40) Hemoglobin 9.0 g/dL (12.0-15.5) Hematocrit 27.1 % (36.0-47.0) Mean Corpuscular Volume 84 fL (79-100) Mean Corpuscular Hemoglobin 28 pg (25-35) Mean Corpuscular Hemoglobin Concent 33 g/dL (31-37) Red Cell Distribution Width 15.5 % (11.5-14.5) Platelet Count 384 x10^3/uL (140-400) Neutrophils (%) (Auto) 92 % (31-73) Lymphocytes (%) (Auto) 5 % (24-48) Monocytes (%) (Auto) 3 % (0-9) Eosinophils (%) (Auto) 0 % (0-3) Basophils (%) (Auto) 0 % (0-3) Neutrophils # (Auto) 21.4 x10^3uL (1.8-7.7) Lymphocytes # (Auto) 1.1 x10^3/uL (1.0-4.8) Monocytes # (Auto) 0.7 x10^3/uL (0.0-1.1) Eosinophils # (Auto) 0.0 x10^3/uL (0.0-0.7) Basophils # (Auto) 0.0 x10^3/uL (0.0-0.2) Segmented Neutrophils % 81 % (35-66) Band Neutrophils % 14 % (0-9) Lymphocytes % 2 % (24-48) Monocytes % 3 % (0-10) Platelet Estimate Increased (ADEQUATE) Anisocytosis Present Sodium Level 139 mmol/L (136-145) Potassium Level 3.6 mmol/L (3.5-5.1) Chloride Level 103 mmol/L (98-107) Carbon Dioxide Level 24 mmol/L (21-32) Anion Gap 12 (6-14) Blood Urea Nitrogen 7 mg/dL (7-20) Creatinine 0.8 mg/dL (0.6-1.0) Estimated GFR (Cockcroft-Gault) 73.4 BUN/Creatinine Ratio 9 (6-20) Glucose Level 142 mg/dL (70-99) Calcium Level 8.5 mg/dL (8.5-10.1) Magnesium Level 1.9 mg/dL (1.8-2.4) Total Bilirubin 0.5 mg/dL (0.2-1.0) Aspartate Amino Transf (AST/SGOT) 16 U/L (15-37) Alanine Aminotransferase (ALT/SGPT) 12 U/L (14-59) Alkaline Phosphatase 134 U/L (46-116) Total Protein 6.1 g/dL (6.4-8.2) Albumin 2.3 g/dL (3.4-5.0) Albumin/Globulin Ratio 0.6 (1.0-1.7) Heparin Anti-Xa Act, Unfractionated 1.03 IU/mL (0.30-0.70) Medications Current Medications Fentanyl Citrate (Fentanyl 2ml Vial) 50 mcg PRN Q15MIN PRN IV PAIN GREATER THAN 3/10 Last administered on 11/26/16 19:41; Start 11/26/16 at 18:00; Stop at 17:59; Status DC Sodium Chloride 1,000 ml @ 1,000 mls/hr Q1H IV Last administered on 11/26/16 18:20; Start 11/26/16 at 18:00; Stop 11/26/16 at 18:59; Status DC Ondansetron HCl (Zofran) 4 mg 1X ONCE IV Last administered on 11/26/16 18:19 ; Start 11/26/16 at 18:00; Stop 11/26/16 at 18:01; Status DC Iohexol (Omnipaque 300 Mg/ml) 60 ml 1X ONCE IV Last administered on 11/26/16 18:39; Start 11/26/16 at 18:15; Stop 11/26/16 at 18:16; Status DC Info (Do NOT chart on this entry -- for MONITORING) 1 each PRN DAILY PRN MC SEE COMMENTS; Start 11/26/16 at 18:15; Stop 11/28/16 at 18:14; Status DC Ondansetron HCl (Zofran) 4 mg PRN Q8HRS PRN IV NAUSEA/VOMITING; Start 11/26/16 at 19:45; Stop 11/27/16 at 19:44; Status DC Fentanyl Citrate (Fentanyl 2ml Vial) 50 mcg PRN Q1HR PRN IV PAIN Last administered on 11/27/16 16:15; Start 11/26/16 at 19:45; Stop 11/27/16 at 19:44 ; Status DC Sodium Chloride 1,000 ml @ 100 mls/hr Q10H IV Last administered on 11/27/16 16:17; Start 11/26/16 at 20:00; Stop 11/27/16 at 19:59; Status DC Acetaminophen (Tylenol) 650 mg PRN Q4HRS PRN PO FEVER; Start 11/26/16 at 19:45 ; Stop 11/27/16 at 19:44; Status DC Gabapentin (Neurontin) 600 mg 1X ONCE PO Last administered on 11/26/16 22:14 ; Start 11/26/16 at 21:45; Stop 11/26/16 at 21:46; Status DC Varenicline (Chantix) 1 mg 1X ONCE PO Last administered on 11/26/16 22:15; Start 11/26/16 at 21:45; Stop 11/26/16 at 21:46; Status DC Atorvastatin Calcium (Lipitor) 40 mg 1X ONCE PO Last administered on 22:15; Start 11/26/16 at 21:45; Stop 11/26/16 at 21:46; Status DC Alprazolam (Xanax) 1 mg 1X ONCE PO Last administered on 11/26/16 22:15; Start 11/26/16 at 21:45; Stop 11/26/16 at 21:46; Status DC Tizanidine HCl (Zanaflex) 4 mg 1X ONCE PO Last administered on 11/26/16 22:15 ; Start 11/26/16 at 21:45; Stop 11/26/16 at 21:46; Status DC Potassium Chloride (Klor-Con) 20 meq 1X ONCE PO Last administered on 22:14; Start 11/26/16 at 21:45; Stop 11/26/16 at 21:46; Status DC Alprazolam (Xanax) 1 mg PRN QID PRN PO ANXIETY / AGITATION Last administered on 12/01/16 00:09; Start 11/27/16 at 08:45 Aspirin (Nader Aspirin) 325 mg DAILY PO Last administered on 11/30/16 08:36; Start 11/27/16 at 09:00 Atorvastatin Calcium (Lipitor) 40 mg HS PO Last administered on 12/01/16 00:09 ; Start 11/27/16 at 21:00 Dicyclomine HCl (Bentyl) 20 mg PRN Q6HRS PRN PO GI PAIN Last administered on 20:33; Start 11/27/16 at 08:45 Furosemide (Lasix) 40 mg DAILY PO Last administered on 11/30/16 08:27; Start 11/27/16 at 09:00 Acetaminophen/ Hydrocodone Bitart (Lortab 7.5/325) 1 tab PRN Q6HRS PRN PO PAIN Last administered on 11/30/16 11:14; Start 11/27/16 at 08:45; Stop 11/30/16 at 15:03; Status DC Levothyroxine Sodium (Synthroid) 150 mcg DAILY07 PO Last administered on 05:52; Start 11/27/16 at 10:30 Magnesium Oxide (Magnesium Oxide) 400 mg QID PO Last administered on 12/01/16 00:09; Start 11/27/16 at 09:00 Tizanidine HCl (Zanaflex) 4 mg QID PO Last administered on 11/30/16 18:44; Start 11/27/16 at 09:00 Non-Formulary Medication 8.5 gm Q4HRS IH ; Start 11/27/16 at 12:00; Stop at 12:00; Status DC Vitamin D (Vitamin D3) 1,000 unit DAILY PO Last administered on 11/30/16 08:26 ; Start 11/27/16 at 09:00 Non-Formulary Medication 1 each BID IH ; Start 11/27/16 at 09:00; Stop 11/27/16 at 09:38; Status DC Gabapentin (Neurontin) 600 mg TID PO Last administered on 12/01/16 00:09; Start 11/27/16 at 09:00 Fish Oil (Fish Oil) 1,000 mg DAILY PO Last administered on 11/30/16 08:26; Start 11/27/16 at 09:00 Pantoprazole Sodium (Protonix) 40 mg DAILYAC PO Last administered on 11/30/16 05:55; Start 11/27/16 at 11:30 Potassium Chloride (Klor-Con) 20 meq TIDWMEALS PO Last administered on 18:45; Start 11/27/16 at 09:00 Vitamin E 400 unit DAILY PO Last administered on 11/30/16 08:27; Start at 09:00 Varenicline (Chantix) 1 mg BID PO Last administered on 11/30/16 08:26; Start 11/27/16 at 09:00 Albuterol Sulfate (Ventolin Neb Soln) 2.5 mg Q4HRS NEB Last administered on 23:02; Start 11/27/16 at 12:00; Stop 11/29/16 at 23:05; Status DC Budesonide (Pulmicort) 0.5 mg RTBID NEB Last administered on 12/01/16 07:38; Start 11/27/16 at 10:00 Iohexol (Omnipaque 350 Mg/ml) 300 ml 1X ONCE PO Last administered on 13:30; Start 11/27/16 at 12:45; Stop 11/27/16 at 12:48; Status DC Iohexol (Omnipaque 350 Mg/ml) 100 ml STK-MED ONCE .ROUTE ; Start 11/27/16 at 13: 04; Stop 11/27/16 at 13:05; Status DC Iohexol (Omnipaque 300 Mg/ml) 300 ml 1X ONCE PO ; Start 11/27/16 at 13:30; Stop 11/27/16 at 13:31; Status DC Info (Do NOT chart on this entry -- for MONITORING) 1 each PRN DAILY PRN MC SEE COMMENTS; Start 11/27/16 at 13:30; Stop 11/29/16 at 13:29; Status DC Iohexol (Omnipaque 350 Mg/ml) 100 ml STK-MED ONCE .ROUTE ; Start 11/27/16 at 13: 24; Stop 11/27/16 at 13:25; Status DC Ondansetron HCl (Zofran) 4 mg PRN Q6HRS PRN IV NAUSEA/VOMITING; Start 11/28/16 at 07:00; Stop 11/28/16 at 07:00; Status DC Fentanyl Citrate (Fentanyl 2ml Vial) 25 mcg PRN Q5MIN PRN IV MILD PAIN; Start 11/28/16 at 07:00; Stop 11/28/16 at 18:00; Status DC Fentanyl Citrate (Fentanyl 2ml Vial) 50 mcg PRN Q5MIN PRN IV MODERATE PAIN Last administered on 11/28/16 13:50; Start 11/28/16 at 07:00; Stop 11/28/16 at 18:00; Status DC Morphine Sulfate 1 mg PRN Q10MIN PRN IV SEVERE PAIN; Start 11/28/16 at 07:00; Stop 11/28/16 at 18:00; Status DC Ringer's Solution 1,000 ml @ 30 mls/hr Q24H IV Last administered on 11/28/16 07:47; Start 11/28/16 at 07:00; Stop 11/28/16 at 18:59; Status DC Lidocaine HCl 2 ml PRN 1X PRN ID PRIOR TO IV START; Start 11/28/16 at 07:00; Stop 11/28/16 at 18:00; Status DC Hydromorphone HCl (Dilaudid) 0.5 mg PRN Q10MIN PRN IV SEV PAIN, Second choice Last administered on 11/28/16 14:11; Start 11/28/16 at 07:00; Stop 11/28/16 at 18:00; Status DC Prochlorperazine Edisylate (Compazine) 5 mg PACU PRN PRN IV NAUSEA, MRX1 Last administered on 11/28/16 13:42; Start 11/28/16 at 07:00; Stop 11/28/16 at 18:00 ; Status DC Cefoxitin Sodium 2 gm/Sodium Chloride 100 ml @ 200 mls/hr 1X PREOP IV ; Start 11/27/16 at 19:15; Stop 11/27/16 at 19:15; Status DC Cefoxitin Sodium 2 gm/Sodium Chloride 100 ml @ 200 mls/hr 1X PREOP ONCE IV Last administered on 11/28/16 09:15; Start 11/28/16 at 06:00; Stop 11/28/16 at 06:29; Status DC Fentanyl Citrate (Fentanyl 2ml Vial) 50 mcg PRN Q2HR PRN IV SEVERE PAIN Last administered on 11/28/16 07:58; Start 11/27/16 at 23:00 Fentanyl Citrate (Fentanyl 2ml Vial) 25 mcg PRN Q2HR PRN IV MODERATE PAIN Last administered on 11/30/16 14:00; Start 11/27/16 at 23:00 Ondansetron HCl (Zofran) 4 mg PRN Q6HRS PRN IV NAUSEA/VOMITING; Start 11/28/16 at 03:45; Status Cancel Ondansetron HCl (Zofran) 4 mg PRN Q6HRS PRN IV NAUSEA/VOMITING Last administered on 9/15/17at 12:25; Start 11/28/16 at 04:00; Stop 11/29/16 at 14:02 ; Status DC Ondansetron HCl (Zofran) 4 mg PRN Q6HRS PRN IV NAUSEA/VOMITING; Start 11/28/16 at 07:00; Stop 11/28/16 at 19:00; Status DC Bupivacaine HCl/ Epinephrine Bitart (Marcaine-Epi 0.5%-[id number]) 50 ml STK-MED ONCE .ROUTE ; Start 11/28/16 at 07:52; Stop 11/28/16 at 07:53; Status DC Fentanyl Citrate (Fentanyl 2ml Vial) 100 mcg STK-MED ONCE .ROUTE ; Start at 08:39; Stop 11/28/16 at 08:40; Status DC Rocuronium [place] (Zemuron) 100 mg STK-MED ONCE .ROUTE ; Start 11/28/16 at 08: 39; Stop 11/28/16 at 08:40; Status DC Cefoxitin Sodium 100 ml @ As Directed STK-MED ONCE IV ; Start 11/28/16 at 08:39 ; Stop 11/28/16 at 08:40; Status DC Dexamethasone Sodium Phosphate (Decadron) 20 mg STK-MED ONCE .ROUTE ; Start at 08:39; Stop 11/28/16 at 08:40; Status DC Ondansetron HCl (Zofran) 4 mg STK-MED ONCE .ROUTE ; Start 11/28/16 at 08:39; Stop 11/28/16 at 08:40; Status DC Propofol 20 ml @ As Directed STK-MED ONCE IV ; Start 11/28/16 at 08:39; Stop at 08:40; Status DC Lidocaine HCl (Lidocaine Pf 2% Vial) 5 ml STK-MED ONCE .ROUTE ; Start 11/28/16 at 08:39; Stop 11/28/16 at 08:40; Status DC Midazolam HCl (Versed) 2 mg STK-MED ONCE .ROUTE ; Start 11/28/16 at 09:00; Stop 11/28/16 at 09:01; Status DC Fentanyl Citrate (Fentanyl 5ml Vial) 250 mcg STK-MED ONCE .ROUTE ; Start at 09:28; Stop 11/28/16 at 09:29; Status DC Sevoflurane (Ultane) 90 ml STK-MED ONCE IH ; Start 11/28/16 at 09:59; Stop 11/28 at 10:00; Status DC Glycopyrrolate (Robinul) 1 mg STK-MED ONCE .ROUTE ; Start 11/28/16 at 12:18; Stop 11/28/16 at 12:19; Status DC Neostigmine Methylsulfate (Bloxiverz) 10 mg STK-MED ONCE .ROUTE ; Start at 12:18; Stop 11/28/16 at 12:19; Status DC Fentanyl Citrate (Fentanyl 2ml Vial) 100 mcg STK-MED ONCE .ROUTE ; Start at 13:16; Stop 11/28/16 at 13:17; Status DC Hydromorphone HCl (Dilaudid) 2 mg STK-MED ONCE .ROUTE ; Start 11/28/16 at 13:27 ; Stop 11/28/16 at 13:28; Status DC Enoxaparin Sodium (Lovenox 40mg Syringe) 40 mg Q24H SQ Last administered on 08:26; Start 11/29/16 at 08:00; Stop 11/30/16 at 21:30; Status DC Sodium Chloride (Normal Saline Flush) 3 ml QSHIFT PRN IV AFTER MEDS AND BLOOD DRAWS; Start 11/28/16 at 13:30 Ringer's Solution 1,000 ml @ 100 mls/hr Q10H IV ; Start 11/28/16 at 13:26; Stop 11/30/16 at 10:52; Status DC Naloxone HCl (Narcan) 0.4 mg PRN Q2MIN PRN IV SEE INSTRUCTIONS; Start 11/28/16 at 13:30 Sodium Chloride 1,000 ml @ 25 mls/hr Q24H IV Last administered on 11/30/16 05 :55; Start 11/28/16 at 13:26; Stop 11/30/16 at 10:52; Status DC Hydromorphone HCl 30 ml @ 0 mls/hr CONT PRN PRN IV PROTOCOL Last administered on 11/29/16 18:35; Start 11/28/16 at 13:30; Stop 11/30/16 at 10:52; Status DC Ondansetron HCl (Zofran) 4 mg PRN Q6HRS PRN IV NAUESA, 1ST CHOICE; Start at 13:30 Fentanyl Citrate (Fentanyl 2ml Vial) 100 mcg STK-MED ONCE .ROUTE ; Start at 13:36; Stop 11/28/16 at 13:37; Status DC Prochlorperazine Edisylate (Compazine) 10 mg STK-MED ONCE .ROUTE ; Start at 13:37; Stop 11/28/16 at 13:38; Status DC Ibuprofen (Motrin) 200 mg PRN Q6HRS PRN PO INFLAMMATION Last administered on 05:57; Start 11/29/16 at 08:30 Albuterol Sulfate (Ventolin Neb Soln) 2.5 mg RTQID NEB Last administered on 16:33; Start 11/30/16 at 08:00; Stop 11/30/16 at 17:18; Status DC Acetaminophen/ Hydrocodone Bitart (Lortab 7.5/325) 1 tab PRN Q6HRS PRN PO PAIN ; Start 11/30/16 at 15:15 Acetaminophen/ Hydrocodone Bitart (Lortab 7.5/325) 2 tab PRN Q6HRS PRN PO PAIN ; Start 11/30/16 at 15:15 Albuterol Sulfate (Ventolin Neb Soln) 2.5 mg RTQID NEB ; Start 11/30/16 at 20:00 ; Stop 11/30/16 at 20:00; Status DC Albuterol Sulfate (Ventolin Neb Soln) 2.5 mg PRN QID PRN NEB SHORTNESS OF BREATH Last administered on 11/30/16 17:35; Start 11/30/16 at 17:20 Piperacillin Sod/ Tazobactam Sod 3.375 gm/Sodium Chloride 50 ml @ 100 mls/hr Q6HRS IV Last administered on 12/01/16 05:41; Start 11/30/16 at 18:00 Acetaminophen (Acetaminophen Supp) 650 mg PRN Q6HRS PRN LA MILD PAIN / TEMP; Start 11/30/16 at 17:30 Iohexol (Omnipaque 300 Mg/ml) 75 ml 1X ONCE IV Last administered on 11/30/16 17:46; Start 11/30/16 at 17:45; Stop 11/30/16 at 17:46; Status DC Acetaminophen (Tylenol) 650 mg PRN Q6HRS PRN PO FEVER > 101 Last administered on 11/30/16 18:44; Start 11/30/16 at 17:30 Info (Do NOT chart on this entry -- for MONITORING) 1 each PRN DAILY PRN MC SEE COMMENTS; Start 11/30/16 at 17:45; Stop 12/02/16 at 17:44 Vancomycin HCl 1 gm/Sodium Chloride 250 ml @ 250 mls/hr 1X STAT IV ; Start at 18:19; Stop 11/30/16 at 19:18; Status UNV Budesonide (Pulmicort) 0.5 mg RTBID NEB ; Start 11/30/16 at 20:00; Stop at 20:56; Status DC Vancomycin HCl 1 gm/Sodium Chloride 250 ml @ 250 mls/hr 1X ONCE IV Last administered on 11/30/16 20:36; Start 11/30/16 at 18:45; Stop 11/30/16 at 19:44 ; Status DC Norepinephrine Bitartrate 250 ml @ As Directed STK-MED ONCE IV ; Start at 19:52; Stop 11/30/16 at 19:53; Status DC Rocuronium [place] (Zemuron) 50 mg STK-MED ONCE .ROUTE ; Start 11/30/16 at 20:00 ; Stop 11/30/16 at 20:01; Status DC Propofol 100 ml @ As Directed STK-MED ONCE IV ; Start 11/30/16 at 20:20; Stop 11/30/16 at 20:21; Status DC Hydrocortisone Sodium Succinate (Solu-CORTEF) 50 mg Q6HRS IV Last administered on 12/01/16 05:42; Start 11/30/16 at 20:15; Stop 12/01/16 at 08:11; Status DC Norepinephrine Bitartrate 250 ml @ 0 mls/hr CONT PRN IV SEE I/O RECORD Last administered on 11/30/16 20:38; Start 11/30/16 at 20:15 Sodium Chloride 1,000 ml @ 1,000 mls/hr 1X ONCE IV Last administered on 20:40; Start 11/30/16 at 20:15; Stop 11/30/16 at 21:14; Status DC Sodium Chloride 1,000 ml @ 1,000 mls/hr 1X ONCE IV Last administered on 20:37; Start 11/30/16 at 20:15; Stop 11/30/16 at 21:14; Status DC Sodium Chloride 1,000 ml @ 1,000 mls/hr 1X ONCE IV Last administered on 20:36; Start 11/30/16 at 20:15; Stop 11/30/16 at 21:14; Status DC Propofol 100 ml @ 0 mls/hr CONT PRN IV SEE I/O RECORD Last administered on 12/01 06:32; Start 11/30/16 at 20:15 Albuterol Sulfate (Ventolin Neb Soln) 2.5 mg RTQID NEB Last administered on 07:38; Start 12/01/16 at 08:00 Heparin Sodium (Porcine) (Heparin Sodium) 7,750 unit 1X ONCE IV Last administered on 11/30/16 21:55; Start 11/30/16 at 22:00; Stop 11/30/16 at 22:01 ; Status DC Heparin Sodium/ Dextrose 500 ml @ 0 mls/hr CONT PRN IV SEE I/O RECORD Last administered on 11/30/16 21:58; Start 11/30/16 at 21:30 Heparin Sodium (Porcine) (Heparin Sodium) 2,900 unit PRN Q6HRS PRN IV FOR UFH LEVEL LESS THAN 0.2; Start 11/30/16 at 21:30 Heparin Sodium (Porcine) (Heparin Sodium) 1,450 unit PRN Q6HRS PRN IV FOR UFH LEVEL 0.2 - 0.29; Start 11/30/16 at 21:30 Rocuronium [place] (Zemuron) 50 mg 1X ONCE IV Last administered on 11/30/16 20:05; Start 12/01/16 at 04:45; Stop 12/01/16 at 04:46; Status DC Hydrocortisone Sodium Succinate (Solu-CORTEF) 50 mg Q8HRS IV ; Start 12/01/16 at 14:00 Active Scripts Active Hydrocodone-Apap 7.5-325 (Hydrocodone Bit/Acetaminophen) 1 Each Tablet 1 Tab PO PRN Q6HRS PRN 30 Days Levothyroxine Sodium 150 Mcg Tablet 1 Tab PO DAILY Bentyl (Dicyclomine Hcl) 10 Mg Capsule 20 Mg PO Q6HRS Reported Chantix (Varenicline Tartrate) 1 Mg Tablet 1 Mg PO BID Atorvastatin Calcium 20 Mg Tablet 40 Mg PO HS Vitamin D (Cholecalciferol (Vitamin D3)) 1,000 Unit Capsule 1,000 Unit PO DAILY Vitamin E 400 Unit Capsule 400 Unit PO DAILY Fish Oil ([place]-3 Fatty Acids) 500 Mg Capsule 500 Mg PO DAILY Magnesium Oxide 400 Mg Tablet 400 Mg PO QID Xanax (Alprazolam) 1 Mg Tablet 1 Mg PO QID Lasix (Furosemide) 40 Mg Tablet 40 Mg PO DAILY Aspirin 325 Mg Tablet 325 Mg PO DAILY Gabapentin 600 Mg Tablet 600 Mg PO TID Tizanidine Hcl 4 Mg Tablet 4 Mg PO QID Estradiol 1 Each Patch.tdwk 1 Each TD DAILY07 Omeprazole 20 Mg Tablet.dr 20 Mg PO DAILY07 Klor-Con (Potassium Chloride) 20 Meq Packet 20 Meq PO TID Proair Hfa Inhaler (Albuterol Sulfate) 8.5 Gm Hfa.aer.ad 8.5 Gm IH Q4HRS Advair 500-50 Diskus (Fluticasone/Salmeterol) 1 Each Disk.w.dev 1 Each IH BID Vitals/I & O Vital Sign - Last 24 Hours 11/30/16 11/30/16 11/30/16 11/30/16 11:14 11:43 12:01 12:14 Temp 98.6 98.6 Pulse 89 Resp 18 16 18 B/P (MAP) 95/52 (66) Pulse Ox 90 O2 Delivery Nasal Cannula Nasal Cannula Nasal Cannula Nasal Cannula O2 Flow Rate 2.0 2.0 2.0 2.0 11/30/16 11/30/16 11/30/16 11/30/16 14:00 14:30 15:00 16:34 Temp 97.4 97.4 Pulse 100 Resp 20 18 18 B/P (MAP) 121/66 (84) Pulse Ox 90 97 92 O2 Delivery Nasal Cannula Room Air Nasal Cannula Nasal Cannula O2 Flow Rate 2.0 2.0 2.0 11/30/16 11/30/16 11/30/16 11/30/16 17:00 17:15 17:29 18:45 Temp 103.0 100.3 103.0 100.3 Pulse 114 110 Resp 36 38 B/P (MAP) 117/63 (81) 107/54 (71) Pulse Ox 85 91 91 96 O2 Delivery Nasal Cannula Venturi Mask NonRebreather Mask Venturi Mask O2 Flow Rate 2.0 15.0 15.0 11/30/16 11/30/16 11/30/16 11/30/16 19:00 19:15 19:30 19:35 Pulse 108 100 90 Resp 45 43 44 B/P (MAP) 106/49 (68) 87/44 (58) 73/45 (54) Pulse Ox 95 95 96 O2 Delivery Venturi Mask Venturi Mask Venturi Mask Venturi Mask O2 Flow Rate 15.0 15.0 15.0 11/30/16 11/30/16 11/30/16 11/30/16 19:45 19:45 20:00 20:15 Pulse 82 82 Resp 41 41 B/P (MAP) 63/36 (45) 72/35 (47) Pulse Ox 97 96 96 100 O2 Delivery Venturi Mask Venturi Mask Venturi Mask Ventilator O2 Flow Rate 15.0 15.0 15.0 11/30/16 11/30/16 11/30/16 11/30/16 20:15 20:15 20:30 20:45 Pulse 82 80 78 Resp 25 26 28 B/P (MAP) 90/34 (52) 92/35 (54) 99/53 (68) Pulse Ox 96 100 100 O2 Delivery Ventilator Mechanical Ventilator Ventilator Ventilator 11/30/16 11/30/16 11/30/16 11/30/16 21:00 21:15 21:30 21:35 Pulse 76 74 72 Resp 20 18 16 B/P (MAP) 92/43 (59) 85/45 (58) 91/47 (62) Pulse Ox 100 100 100 100 O2 Delivery Ventilator Ventilator Ventilator Ventilator 11/30/16 11/30/16 11/30/16 11/30/16 22:00 22:30 23:00 23:40 Temp 98.7 98.7 Pulse 70 68 66 Resp 16 16 16 B/P (MAP) 93/46 (62) 93/48 (63) 100/51 (67) Pulse Ox 100 100 100 100 O2 Delivery Ventilator Ventilator Ventilator Ventilator 12/01/16 12/01/16 12/01/16 12/01/16 00:00 00:26 01:00 01:55 Temp 97.7 97.7 Pulse 64 62 Resp 16 16 B/P (MAP) 100/54 (69) 109/56 (73) Pulse Ox 99 99 100 O2 Delivery Ventilator Mechanical Ventilator Ventilator Ventilator 12/01/16 12/01/16 12/01/16 12/01/16 02:00 03:00 03:53 04:00 Temp 97.9 97.9 Pulse 60 58 60 Resp 16 16 16 B/P (MAP) 104/55 (71) 99/55 (70) 98/58 (71) Pulse Ox 99 99 100 99 O2 Delivery Ventilator Ventilator Ventilator Ventilator 12/01/16 12/01/16 12/01/16 12/01/16 04:00 04:45 05:00 05:15 Pulse 60 62 64 Resp 16 16 16 B/P (MAP) 104/52 (69) 79/47 (58) 84/51 (62) Pulse Ox 99 99 99 O2 Delivery Mechanical Ventilator Ventilator Ventilator Ventilator 12/01/16 12/01/16 12/01/16 12/01/16 06:00 06:11 07:00 07:23 Temp 97.4 97.4 Pulse 59 64 Resp 16 16 B/P (MAP) 102/53 (69) 126/64 (84) Pulse Ox 97 97 95 O2 Delivery Ventilator Ventilator Ventilator Mechanical Ventilator 12/01/16 12/01/16 07:39 08:00 Pulse 66 Resp 18 B/P (MAP) 125/72 (89) Pulse Ox 96 98 O2 Delivery Ventilator Ventilator Intake and Output 12/01/16 12/01/16 12/02/16 15:00 23:00 07:00 Output Total 100 ml Balance -100 ml Problem List Problems Medical Problems: (1) Abdominal pain Status: Acute Assessment PE, on ventilator and anticoag. S/p herniae repairs. Plan of Care: Continue current Tx, Mgmt Plan of Care Note Will stand by. GI prophylaxis if not receiving. TIFFANI GUAN MD Dec 01, 2016 09:18
[2016-12-01] MEDS: CHOLECALCIFEROL (VITAMIN D3) 1,000 UNIT TABLET PO SCH (09:22)
[2016-12-01] MEDS: OMEGA-3 FATTY ACIDS/FISH OIL 1,000 MG CAPSULE. PO SCH (09:22)
[2016-12-01] MEDS: ASPIRIN 325 MG TABLET PO SCH (09:22)
[2016-12-01] MEDS: VITAMIN E 200 UNIT CAPSULE. PO SCH (09:23)
[2016-12-01] MEDS: tiZANidine 4 MG TABLET. PO SCH ×4 (09:23→21:02)
[2016-12-01 09:33] LABS: HCO3 ABG 23 mmol/L (21-28); PCO2 ABG 33 mmHg (35-46); PH ABG 7.47 (7.35-7.45); SAT O2 ABG 78 % (92-99)
--- NOTE | 2016-12-01 09:48 | PDOC ---
Infectious Disease Note Vital Sign Vital Signs Vital Signs Date Time Temp Pulse Resp B/P (MAP) Pulse Ox O2 Delivery O2 Flow Rate FiO2 12/01/16 09:00 68 24 116/74 (88) 95 Ventilator 12/01/16 07:00 97.4 97.4 11/30/16 20:00 15.0 Labs Lab Laboratory Tests Test 11/30/16 19:20 11/30/16 19:45 11/30/16 19:50 11/30/16 21:45 White Blood Count 15.0 x10^3/uL (4.0-11.0) Red Blood Count 3.24 x10^6/uL (3.50-5.40) Hemoglobin 8.9 g/dL (12.0-15.5) Hematocrit 27.3 % (36.0-47.0) Mean Corpuscular Volume 84 fL (79-100) Mean Corpuscular Hemoglobin 27 pg (25-35) Mean Corpuscular Hemoglobin Concent 32 g/dL (31-37) Red Cell Distribution Width 14.9 % (11.5-14.5) Platelet Count 321 x10^3/uL (140-400) Neutrophils (%) (Auto) 84 % (31-73) Lymphocytes (%) (Auto) 9 % (24-48) Monocytes (%) (Auto) 6 % (0-9) Eosinophils (%) (Auto) 1 % (0-3) Basophils (%) (Auto) 0 % (0-3) Neutrophils # (Auto) 12.7 x10^3uL (1.8-7.7) Lymphocytes # (Auto) 1.3 x10^3/uL (1.0-4.8) Monocytes # (Auto) 0.9 x10^3/uL (0.0-1.1) Eosinophils # (Auto) 0.1 x10^3/uL (0.0-0.7) Basophils # (Auto) 0.1 x10^3/uL (0.0-0.2) Lactic Acid Level 0.7 mmol/L (0.4-2.0) Sodium Level 132 mmol/L (136-145) Potassium Level 3.9 mmol/L (3.5-5.1) Chloride Level 97 mmol/L (98-107) Carbon Dioxide Level 26 mmol/L (21-32) Anion Gap 9 (6-14) Blood Urea Nitrogen 9 mg/dL (7-20) Creatinine 0.9 mg/dL (0.6-1.0) Estimated GFR (Cockcroft-Gault) 64.1 Glucose Level 105 mg/dL (70-99) Calcium Level 8.3 mg/dL (8.5-10.1) O2 Saturation 94 % (92-99) 99 % (92-99) Arterial Blood pH 7.43 (7.35-7.45) 7.39 (7.35-7.45) Arterial Blood pH (Temp corrected) 7.40 Arterial Blood pCO2 at Patient Temp 38 mmHg (35-46) 38 mmHg (35-46) Arterial Blood pCO2 (Temp correct) 42 mmHg Arterial Blood pO2 at Patient Temp 73 mmHg (65-108) 275 mmHg (65-108) Arterial Blood pO2 (Temp corrected) 86 mmHg Arterial Blood HCO3 25 mmol/L (21-28) 23 mmol/L (21-28) Arterial Blood Base Excess 0 mmol/L (-3-3) -2 mmol/L (-3-3) FiO2 50 100 Test 12/01/16 02:00 12/01/16 03:12 White Blood Count 23.3 x10^3/uL (4.0-11.0) Red Blood Count 3.25 x10^6/uL (3.50-5.40) Hemoglobin 9.0 g/dL (12.0-15.5) Hematocrit 27.1 % (36.0-47.0) Mean Corpuscular Volume 84 fL (79-100) Mean Corpuscular Hemoglobin 28 pg (25-35) Mean Corpuscular Hemoglobin Concent 33 g/dL (31-37) Red Cell Distribution Width 15.5 % (11.5-14.5) Platelet Count 384 x10^3/uL (140-400) Neutrophils (%) (Auto) 92 % (31-73) Lymphocytes (%) (Auto) 5 % (24-48) Monocytes (%) (Auto) 3 % (0-9) Eosinophils (%) (Auto) 0 % (0-3) Basophils (%) (Auto) 0 % (0-3) Neutrophils # (Auto) 21.4 x10^3uL (1.8-7.7) Lymphocytes # (Auto) 1.1 x10^3/uL (1.0-4.8) Monocytes # (Auto) 0.7 x10^3/uL (0.0-1.1) Eosinophils # (Auto) 0.0 x10^3/uL (0.0-0.7) Basophils # (Auto) 0.0 x10^3/uL (0.0-0.2) Segmented Neutrophils % 81 % (35-66) Band Neutrophils % 14 % (0-9) Lymphocytes % 2 % (24-48) Monocytes % 3 % (0-10) Platelet Estimate Increased (ADEQUATE) Anisocytosis Present Sodium Level 139 mmol/L (136-145) Potassium Level 3.6 mmol/L (3.5-5.1) Chloride Level 103 mmol/L (98-107) Carbon Dioxide Level 24 mmol/L (21-32) Anion Gap 12 (6-14) Blood Urea Nitrogen 7 mg/dL (7-20) Creatinine 0.8 mg/dL (0.6-1.0) Estimated GFR (Cockcroft-Gault) 73.4 BUN/Creatinine Ratio 9 (6-20) Glucose Level 142 mg/dL (70-99) Calcium Level 8.5 mg/dL (8.5-10.1) Magnesium Level 1.9 mg/dL (1.8-2.4) Total Bilirubin 0.5 mg/dL (0.2-1.0) Aspartate Amino Transf (AST/SGOT) 16 U/L (15-37) Alanine Aminotransferase (ALT/SGPT) 12 U/L (14-59) Alkaline Phosphatase 134 U/L (46-116) Total Protein 6.1 g/dL (6.4-8.2) Albumin 2.3 g/dL (3.4-5.0) Albumin/Globulin Ratio 0.6 (1.0-1.7) Heparin Anti-Xa Act, Unfractionated 1.03 IU/mL (0.30-0.70) Objective Assessment Fever Leukocytosis Aspiration/HCAP Respiratory failure S/P colostomy revision Plan Plan of Care triston andino check cultures supportive care BONNIE CANADA MD Dec 01, 2016 09:48
[2016-12-01 09:58] LABS: PO2 ABG < 42 mmHg (65-108)
[2016-12-01] MEDS ORDERED: POTASSIUM CHLORIDE 20 MEQ/15 ML ORAL LIQUID. PEG ONE (10:00)
[2016-12-01] MEDS: FAMOTIDINE 20 MG/2 ML VIAL IVP SCH ×2 (10:05→21:02)
[2016-12-01] MEDS: fentaNYL PF VIAL 100 MCG/2 ML VIAL IV PRN ×3 (10:06→19:21)
[2016-12-01] MEDS: VANCOMYCIN 1.5 GM in IV NORMAL SALINE 500ML BAG 500 ML IV SCH ×2 (10:27→22:11)
[2016-12-01] MEDS: VANCOMYCIN PER PHARMACY MC PRN (11:01)
--- NOTE | 2016-12-01 11:24 | PDOC ---
PROGRESS NOTES Subjective Subjective Patient sedated, resting quietly on vent. Objective Objective Vital Signs Date Time Temp Pulse Resp B/P (MAP) Pulse Ox O2 Delivery O2 Flow Rate FiO2 12/01/16 10:38 20 12/01/16 10:01 88 Ventilator 12/01/16 10:00 60 100/56 (71) 12/01/16 07:00 97.4 97.4 11/30/16 20:00 15.0 Intake and Output 12/02/16 07:00 Intake Total 120 ml Output Total 285 ml Balance -165 ml Other 120 ml Output Urine Total 285 ml Physical Exam Abdomen: Normal bowel sounds, Soft, Other (liquid stool in ostomy bag) Heart: Regular rate Extremities: No edema General: No acute distress Lungs: Other (coarse BS bilaterally ) Assessment Assessment Problems Medical Problems: (1) Abdominal pain Status: Acute Plan Plan of Care 1. Acute respiratory failure with pneumonia and septic shock - stable after intubation. BP improved on Levophed. Continue broad-spectrum abx per ID and respiratory support including steroids. 2. pulmonary emboli - seen on CT chest yesterday. Presently on Heparin gtt. 3. POD #3 hernia repairs - good output from new ostomy. Comment Review of Relevant I have reviewed the following items chris (where applicable) has been applied. Labs Laboratory Tests Test 11/30/16 19:20 11/30/16 19:45 11/30/16 19:50 11/30/16 21:45 White Blood Count 15.0 x10^3/uL (4.0-11.0) Red Blood Count 3.24 x10^6/uL (3.50-5.40) Hemoglobin 8.9 g/dL (12.0-15.5) Hematocrit 27.3 % (36.0-47.0) Mean Corpuscular Volume 84 fL (79-100) Mean Corpuscular Hemoglobin 27 pg (25-35) Mean Corpuscular Hemoglobin Concent 32 g/dL (31-37) Red Cell Distribution Width 14.9 % (11.5-14.5) Platelet Count 321 x10^3/uL (140-400) Neutrophils (%) (Auto) 84 % (31-73) Lymphocytes (%) (Auto) 9 % (24-48) Monocytes (%) (Auto) 6 % (0-9) Eosinophils (%) (Auto) 1 % (0-3) Basophils (%) (Auto) 0 % (0-3) Neutrophils # (Auto) 12.7 x10^3uL (1.8-7.7) Lymphocytes # (Auto) 1.3 x10^3/uL (1.0-4.8) Monocytes # (Auto) 0.9 x10^3/uL (0.0-1.1) Eosinophils # (Auto) 0.1 x10^3/uL (0.0-0.7) Basophils # (Auto) 0.1 x10^3/uL (0.0-0.2) Lactic Acid Level 0.7 mmol/L (0.4-2.0) Sodium Level 132 mmol/L (136-145) Potassium Level 3.9 mmol/L (3.5-5.1) Chloride Level 97 mmol/L (98-107) Carbon Dioxide Level 26 mmol/L (21-32) Anion Gap 9 (6-14) Blood Urea Nitrogen 9 mg/dL (7-20) Creatinine 0.9 mg/dL (0.6-1.0) Estimated GFR (Cockcroft-Gault) 64.1 Glucose Level 105 mg/dL (70-99) Calcium Level 8.3 mg/dL (8.5-10.1) O2 Saturation 94 % (92-99) 99 % (92-99) Arterial Blood pH 7.43 (7.35-7.45) 7.39 (7.35-7.45) Arterial Blood pH (Temp corrected) 7.40 Arterial Blood pCO2 at Patient Temp 38 mmHg (35-46) 38 mmHg (35-46) Arterial Blood pCO2 (Temp correct) 42 mmHg Arterial Blood pO2 at Patient Temp 73 mmHg (65-108) 275 mmHg (65-108) Arterial Blood pO2 (Temp corrected) 86 mmHg Arterial Blood HCO3 25 mmol/L (21-28) 23 mmol/L (21-28) Arterial Blood Base Excess 0 mmol/L (-3-3) -2 mmol/L (-3-3) FiO2 50 100 Test 12/01/16 02:00 12/01/16 03:12 12/01/16 08:00 12/01/16 09:58 White Blood Count 23.3 x10^3/uL (4.0-11.0) Red Blood Count 3.25 x10^6/uL (3.50-5.40) Hemoglobin 9.0 g/dL (12.0-15.5) Hematocrit 27.1 % (36.0-47.0) Mean Corpuscular Volume 84 fL (79-100) Mean Corpuscular Hemoglobin 28 pg (25-35) Mean Corpuscular Hemoglobin Concent 33 g/dL (31-37) Red Cell Distribution Width 15.5 % (11.5-14.5) Platelet Count 384 x10^3/uL (140-400) Neutrophils (%) (Auto) 92 % (31-73) Lymphocytes (%) (Auto) 5 % (24-48) Monocytes (%) (Auto) 3 % (0-9) Eosinophils (%) (Auto) 0 % (0-3) Basophils (%) (Auto) 0 % (0-3) Neutrophils # (Auto) 21.4 x10^3uL (1.8-7.7) Lymphocytes # (Auto) 1.1 x10^3/uL (1.0-4.8) Monocytes # (Auto) 0.7 x10^3/uL (0.0-1.1) Eosinophils # (Auto) 0.0 x10^3/uL (0.0-0.7) Basophils # (Auto) 0.0 x10^3/uL (0.0-0.2) Segmented Neutrophils % 81 % (35-66) Band Neutrophils % 14 % (0-9) Lymphocytes % 2 % (24-48) Monocytes % 3 % (0-10) Platelet Estimate Increased (ADEQUATE) Anisocytosis Present Sodium Level 139 mmol/L (136-145) Potassium Level 3.6 mmol/L (3.5-5.1) Chloride Level 103 mmol/L (98-107) Carbon Dioxide Level 24 mmol/L (21-32) Anion Gap 12 (6-14) Blood Urea Nitrogen 7 mg/dL (7-20) Creatinine 0.8 mg/dL (0.6-1.0) Estimated GFR (Cockcroft-Gault) 73.4 BUN/Creatinine Ratio 9 (6-20) Glucose Level 142 mg/dL (70-99) Calcium Level 8.5 mg/dL (8.5-10.1) Magnesium Level 1.9 mg/dL (1.8-2.4) Total Bilirubin 0.5 mg/dL (0.2-1.0) Aspartate Amino Transf (AST/SGOT) 16 U/L (15-37) Alanine Aminotransferase (ALT/SGPT) 12 U/L (14-59) Alkaline Phosphatase 134 U/L (46-116) Total Protein 6.1 g/dL (6.4-8.2) Albumin 2.3 g/dL (3.4-5.0) Albumin/Globulin Ratio 0.6 (1.0-1.7) Heparin Anti-Xa Act, Unfractionated 1.03 IU/mL (0.30-0.70) 0.38 IU/mL (0.30-0.70) O2 Saturation 78 % (92-99) Arterial Blood pH 7.47 (7.35-7.45) Arterial Blood pCO2 at Patient Temp 33 mmHg (35-46) Arterial Blood pO2 at Patient Temp < 42 mmHg (65-108) Arterial Blood HCO3 23 mmol/L (21-28) Arterial Blood Base Excess 0 mmol/L (-3-3) Laboratory Tests Test 11/30/16 19:20 11/30/16 19:45 11/30/16 19:50 11/30/16 21:45 White Blood Count 15.0 x10^3/uL (4.0-11.0) Red Blood Count 3.24 x10^6/uL (3.50-5.40) Hemoglobin 8.9 g/dL (12.0-15.5) Hematocrit 27.3 % (36.0-47.0) Mean Corpuscular Volume 84 fL (79-100) Mean Corpuscular Hemoglobin 27 pg (25-35) Mean Corpuscular Hemoglobin Concent 32 g/dL (31-37) Red Cell Distribution Width 14.9 % (11.5-14.5) Platelet Count 321 x10^3/uL (140-400) Neutrophils (%) (Auto) 84 % (31-73) Lymphocytes (%) (Auto) 9 % (24-48) Monocytes (%) (Auto) 6 % (0-9) Eosinophils (%) (Auto) 1 % (0-3) Basophils (%) (Auto) 0 % (0-3) Neutrophils # (Auto) 12.7 x10^3uL (1.8-7.7) Lymphocytes # (Auto) 1.3 x10^3/uL (1.0-4.8) Monocytes # (Auto) 0.9 x10^3/uL (0.0-1.1) Eosinophils # (Auto) 0.1 x10^3/uL (0.0-0.7) Basophils # (Auto) 0.1 x10^3/uL (0.0-0.2) Lactic Acid Level 0.7 mmol/L (0.4-2.0) Sodium Level 132 mmol/L (136-145) Potassium Level 3.9 mmol/L (3.5-5.1) Chloride Level 97 mmol/L (98-107) Carbon Dioxide Level 26 mmol/L (21-32) Anion Gap 9 (6-14) Blood Urea Nitrogen 9 mg/dL (7-20) Creatinine 0.9 mg/dL (0.6-1.0) Estimated GFR (Cockcroft-Gault) 64.1 Glucose Level 105 mg/dL (70-99) Calcium Level 8.3 mg/dL (8.5-10.1) O2 Saturation 94 % (92-99) 99 % (92-99) Arterial Blood pH 7.43 (7.35-7.45) 7.39 (7.35-7.45) Arterial Blood pH (Temp corrected) 7.40 Arterial Blood pCO2 at Patient Temp 38 mmHg (35-46) 38 mmHg (35-46) Arterial Blood pCO2 (Temp correct) 42 mmHg Arterial Blood pO2 at Patient Temp 73 mmHg (65-108) 275 mmHg (65-108) Arterial Blood pO2 (Temp corrected) 86 mmHg Arterial Blood HCO3 25 mmol/L (21-28) 23 mmol/L (21-28) Arterial Blood Base Excess 0 mmol/L (-3-3) -2 mmol/L (-3-3) FiO2 50 100 Test 12/01/16 02:00 12/01/16 03:12 12/01/16 08:00 12/01/16 09:58 White Blood Count 23.3 x10^3/uL (4.0-11.0) Red Blood Count 3.25 x10^6/uL (3.50-5.40) Hemoglobin 9.0 g/dL (12.0-15.5) Hematocrit 27.1 % (36.0-47.0) Mean Corpuscular Volume 84 fL (79-100) Mean Corpuscular Hemoglobin 28 pg (25-35) Mean Corpuscular Hemoglobin Concent 33 g/dL (31-37) Red Cell Distribution Width 15.5 % (11.5-14.5) Platelet Count 384 x10^3/uL (140-400) Neutrophils (%) (Auto) 92 % (31-73) Lymphocytes (%) (Auto) 5 % (24-48) Monocytes (%) (Auto) 3 % (0-9) Eosinophils (%) (Auto) 0 % (0-3) Basophils (%) (Auto) 0 % (0-3) Neutrophils # (Auto) 21.4 x10^3uL (1.8-7.7) Lymphocytes # (Auto) 1.1 x10^3/uL (1.0-4.8) Monocytes # (Auto) 0.7 x10^3/uL (0.0-1.1) Eosinophils # (Auto) 0.0 x10^3/uL (0.0-0.7) Basophils # (Auto) 0.0 x10^3/uL (0.0-0.2) Segmented Neutrophils % 81 % (35-66) Band Neutrophils % 14 % (0-9) Lymphocytes % 2 % (24-48) Monocytes % 3 % (0-10) Platelet Estimate Increased (ADEQUATE) Anisocytosis Present Sodium Level 139 mmol/L (136-145) Potassium Level 3.6 mmol/L (3.5-5.1) Chloride Level 103 mmol/L (98-107) Carbon Dioxide Level 24 mmol/L (21-32) Anion Gap 12 (6-14) Blood Urea Nitrogen 7 mg/dL (7-20) Creatinine 0.8 mg/dL (0.6-1.0) Estimated GFR (Cockcroft-Gault) 73.4 BUN/Creatinine Ratio 9 (6-20) Glucose Level 142 mg/dL (70-99) Calcium Level 8.5 mg/dL (8.5-10.1) Magnesium Level 1.9 mg/dL (1.8-2.4) Total Bilirubin 0.5 mg/dL (0.2-1.0) Aspartate Amino Transf (AST/SGOT) 16 U/L (15-37) Alanine Aminotransferase (ALT/SGPT) 12 U/L (14-59) Alkaline Phosphatase 134 U/L (46-116) Total Protein 6.1 g/dL (6.4-8.2) Albumin 2.3 g/dL (3.4-5.0) Albumin/Globulin Ratio 0.6 (1.0-1.7) Heparin Anti-Xa Act, Unfractionated 1.03 IU/mL (0.30-0.70) 0.38 IU/mL (0.30-0.70) O2 Saturation 78 % (92-99) Arterial Blood pH 7.47 (7.35-7.45) Arterial Blood pCO2 at Patient Temp 33 mmHg (35-46) Arterial Blood pO2 at Patient Temp < 42 mmHg (65-108) Arterial Blood HCO3 23 mmol/L (21-28) Arterial Blood Base Excess 0 mmol/L (-3-3) Microbiology 12/01/16 Gram Stain - Final, Complete Medications Current Medications Fentanyl Citrate (Fentanyl 2ml Vial) 50 mcg PRN Q15MIN PRN IV PAIN GREATER THAN 3/10 Last administered on 11/26/16 19:41; Start 11/26/16 at 18:00; Stop at 17:59; Status DC Sodium Chloride 1,000 ml @ 1,000 mls/hr Q1H IV Last administered on 11/26/16 18:20; Start 11/26/16 at 18:00; Stop 11/26/16 at 18:59; Status DC Ondansetron HCl (Zofran) 4 mg 1X ONCE IV Last administered on 11/26/16 18:19 ; Start 11/26/16 at 18:00; Stop 11/26/16 at 18:01; Status DC Iohexol (Omnipaque 300 Mg/ml) 60 ml 1X ONCE IV Last administered on 11/26/16 18:39; Start 11/26/16 at 18:15; Stop 11/26/16 at 18:16; Status DC Info (Do NOT chart on this entry -- for MONITORING) 1 each PRN DAILY PRN MC SEE COMMENTS; Start 11/26/16 at 18:15; Stop 11/28/16 at 18:14; Status DC Ondansetron HCl (Zofran) 4 mg PRN Q8HRS PRN IV NAUSEA/VOMITING; Start 11/26/16 at 19:45; Stop 11/27/16 at 19:44; Status DC Fentanyl Citrate (Fentanyl 2ml Vial) 50 mcg PRN Q1HR PRN IV PAIN Last administered on 11/27/16 16:15; Start 11/26/16 at 19:45; Stop 11/27/16 at 19:44 ; Status DC Sodium Chloride 1,000 ml @ 100 mls/hr Q10H IV Last administered on 11/27/16 16:17; Start 11/26/16 at 20:00; Stop 11/27/16 at 19:59; Status DC Acetaminophen (Tylenol) 650 mg PRN Q4HRS PRN PO FEVER; Start 11/26/16 at 19:45 ; Stop 11/27/16 at 19:44; Status DC Gabapentin (Neurontin) 600 mg 1X ONCE PO Last administered on 11/26/16 22:14 ; Start 11/26/16 at 21:45; Stop 11/26/16 at 21:46; Status DC Varenicline (Chantix) 1 mg 1X ONCE PO Last administered on 11/26/16 22:15; Start 11/26/16 at 21:45; Stop 11/26/16 at 21:46; Status DC Atorvastatin Calcium (Lipitor) 40 mg 1X ONCE PO Last administered on 22:15; Start 11/26/16 at 21:45; Stop 11/26/16 at 21:46; Status DC Alprazolam (Xanax) 1 mg 1X ONCE PO Last administered on 11/26/16 22:15; Start 11/26/16 at 21:45; Stop 11/26/16 at 21:46; Status DC Tizanidine HCl (Zanaflex) 4 mg 1X ONCE PO Last administered on 11/26/16 22:15 ; Start 11/26/16 at 21:45; Stop 11/26/16 at 21:46; Status DC Potassium Chloride (Klor-Con) 20 meq 1X ONCE PO Last administered on 22:14; Start 11/26/16 at 21:45; Stop 11/26/16 at 21:46; Status DC Alprazolam (Xanax) 1 mg PRN QID PRN PO ANXIETY / AGITATION Last administered on 12/01/16 09:23; Start 11/27/16 at 08:45 Aspirin (Nader Aspirin) 325 mg DAILY PO Last administered on 12/01/16 09:22; Start 11/27/16 at 09:00 Atorvastatin Calcium (Lipitor) 40 mg HS PO Last administered on 12/01/16 00:09 ; Start 11/27/16 at 21:00 Dicyclomine HCl (Bentyl) 20 mg PRN Q6HRS PRN PO GI PAIN Last administered on 20:33; Start 11/27/16 at 08:45 Furosemide (Lasix) 40 mg DAILY PO Last administered on 11/30/16 08:27; Start 11/27/16 at 09:00 Acetaminophen/ Hydrocodone Bitart (Lortab 7.5/325) 1 tab PRN Q6HRS PRN PO PAIN Last administered on 11/30/16 11:14; Start 11/27/16 at 08:45; Stop 11/30/16 at 15:03; Status DC Levothyroxine Sodium (Synthroid) 150 mcg DAILY07 PO Last administered on 05:52; Start 11/27/16 at 10:30 Magnesium Oxide (Magnesium Oxide) 400 mg QID PO Last administered on 12/01/16 09:22; Start 11/27/16 at 09:00 Tizanidine HCl (Zanaflex) 4 mg QID PO Last administered on 12/01/16 09:23; Start 11/27/16 at 09:00 Non-Formulary Medication 8.5 gm Q4HRS IH ; Start 11/27/16 at 12:00; Stop at 12:00; Status DC Vitamin D (Vitamin D3) 1,000 unit DAILY PO Last administered on 12/01/16 09:22 ; Start 11/27/16 at 09:00 Non-Formulary Medication 1 each BID IH ; Start 11/27/16 at 09:00; Stop 11/27/16 at 09:38; Status DC Gabapentin (Neurontin) 600 mg TID PO Last administered on 12/01/16 09:23; Start 11/27/16 at 09:00 Fish Oil (Fish Oil) 1,000 mg DAILY PO Last administered on 12/01/16 09:22; Start 11/27/16 at 09:00 Pantoprazole Sodium (Protonix) 40 mg DAILYAC PO Last administered on 11/30/16 05:55; Start 11/27/16 at 11:30 Potassium Chloride (Klor-Con) 20 meq TIDWMEALS PO Last administered on 18:45; Start 11/27/16 at 09:00; Stop 12/01/16 at 09:57; Status DC Vitamin E 400 unit DAILY PO Last administered on 12/01/16 09:23; Start at 09:00 Varenicline (Chantix) 1 mg BID PO Last administered on 11/30/16 08:26; Start 11/27/16 at 09:00 Albuterol Sulfate (Ventolin Neb Soln) 2.5 mg Q4HRS NEB Last administered on 23:02; Start 11/27/16 at 12:00; Stop 11/29/16 at 23:05; Status DC Budesonide (Pulmicort) 0.5 mg RTBID NEB Last administered on 12/01/16 07:38; Start 11/27/16 at 10:00 Iohexol (Omnipaque 350 Mg/ml) 300 ml 1X ONCE PO Last administered on 13:30; Start 11/27/16 at 12:45; Stop 11/27/16 at 12:48; Status DC Iohexol (Omnipaque 350 Mg/ml) 100 ml STK-MED ONCE .ROUTE ; Start 11/27/16 at 13: 04; Stop 11/27/16 at 13:05; Status DC Iohexol (Omnipaque 300 Mg/ml) 300 ml 1X ONCE PO ; Start 11/27/16 at 13:30; Stop 11/27/16 at 13:31; Status DC Info (Do NOT chart on this entry -- for MONITORING) 1 each PRN DAILY PRN MC SEE COMMENTS; Start 11/27/16 at 13:30; Stop 11/29/16 at 13:29; Status DC Iohexol (Omnipaque 350 Mg/ml) 100 ml STK-MED ONCE .ROUTE ; Start 11/27/16 at 13: 24; Stop 11/27/16 at 13:25; Status DC Ondansetron HCl (Zofran) 4 mg PRN Q6HRS PRN IV NAUSEA/VOMITING; Start 11/28/16 at 07:00; Stop 11/28/16 at 07:00; Status DC Fentanyl Citrate (Fentanyl 2ml Vial) 25 mcg PRN Q5MIN PRN IV MILD PAIN; Start 11/28/16 at 07:00; Stop 11/28/16 at 18:00; Status DC Fentanyl Citrate (Fentanyl 2ml Vial) 50 mcg PRN Q5MIN PRN IV MODERATE PAIN Last administered on 11/28/16 13:50; Start 11/28/16 at 07:00; Stop 11/28/16 at 18:00; Status DC Morphine Sulfate 1 mg PRN Q10MIN PRN IV SEVERE PAIN; Start 11/28/16 at 07:00; Stop 11/28/16 at 18:00; Status DC Ringer's Solution 1,000 ml @ 30 mls/hr Q24H IV Last administered on 11/28/16 07:47; Start 11/28/16 at 07:00; Stop 11/28/16 at 18:59; Status DC Lidocaine HCl 2 ml PRN 1X PRN ID PRIOR TO IV START; Start 11/28/16 at 07:00; Stop 11/28/16 at 18:00; Status DC Hydromorphone HCl (Dilaudid) 0.5 mg PRN Q10MIN PRN IV SEV PAIN, Second choice Last administered on 11/28/16 14:11; Start 11/28/16 at 07:00; Stop 11/28/16 at 18:00; Status DC Prochlorperazine Edisylate (Compazine) 5 mg PACU PRN PRN IV NAUSEA, MRX1 Last administered on 11/28/16 13:42; Start 11/28/16 at 07:00; Stop 11/28/16 at 18:00 ; Status DC Cefoxitin Sodium 2 gm/Sodium Chloride 100 ml @ 200 mls/hr 1X PREOP IV ; Start 11/27/16 at 19:15; Stop 11/27/16 at 19:15; Status DC Cefoxitin Sodium 2 gm/Sodium Chloride 100 ml @ 200 mls/hr 1X PREOP ONCE IV Last administered on 11/28/16 09:15; Start 11/28/16 at 06:00; Stop 11/28/16 at 06:29; Status DC Fentanyl Citrate (Fentanyl 2ml Vial) 50 mcg PRN Q2HR PRN IV SEVERE PAIN Last administered on 11/28/16 07:58; Start 11/27/16 at 23:00 Fentanyl Citrate (Fentanyl 2ml Vial) 25 mcg PRN Q2HR PRN IV MODERATE PAIN Last administered on 12/01/16 10:06; Start 11/27/16 at 23:00 Ondansetron HCl (Zofran) 4 mg PRN Q6HRS PRN IV NAUSEA/VOMITING; Start 11/28/16 at 03:45; Status Cancel Ondansetron HCl (Zofran) 4 mg PRN Q6HRS PRN IV NAUSEA/VOMITING Last administered on 11/29/16 12:25; Start 11/28/16 at 04:00; Stop 11/29/16 at 14:02 ; Status DC Ondansetron HCl (Zofran) 4 mg PRN Q6HRS PRN IV NAUSEA/VOMITING; Start 11/28/16 at 07:00; Stop 11/28/16 at 19:00; Status DC Bupivacaine HCl/ Epinephrine Bitart (Marcaine-Epi 0.5%-1:[id number]) 50 ml STK-MED ONCE .ROUTE ; Start 11/28/16 at 07:52; Stop 11/28/16 at 07:53; Status DC Fentanyl Citrate (Fentanyl 2ml Vial) 100 mcg STK-MED ONCE .ROUTE ; Start at 08:39; Stop 11/28/16 at 08:40; Status DC Rocuronium Fieldon (Zemuron) 100 mg STK-MED ONCE .ROUTE ; Start 11/28/16 at 08: 39; Stop 11/28/16 at 08:40; Status DC Cefoxitin Sodium 100 ml @ As Directed STK-MED ONCE IV ; Start 11/28/16 at 08:39 ; Stop 11/28/16 at 08:40; Status DC Dexamethasone Sodium Phosphate (Decadron) 20 mg STK-MED ONCE .ROUTE ; Start at 08:39; Stop 11/28/16 at 08:40; Status DC Ondansetron HCl (Zofran) 4 mg STK-MED ONCE .ROUTE ; Start 11/28/16 at 08:39; Stop 11/28/16 at 08:40; Status DC Propofol 20 ml @ As Directed STK-MED ONCE IV ; Start 11/28/16 at 08:39; Stop at 08:40; Status DC Lidocaine HCl (Lidocaine Pf 2% Vial) 5 ml STK-MED ONCE .ROUTE ; Start 11/28/16 at 08:39; Stop 11/28/16 at 08:40; Status DC Midazolam HCl (Versed) 2 mg STK-MED ONCE .ROUTE ; Start 11/28/16 at 09:00; Stop 11/28/16 at 09:01; Status DC Fentanyl Citrate (Fentanyl 5ml Vial) 250 mcg STK-MED ONCE .ROUTE ; Start at 09:28; Stop 11/28/16 at 09:29; Status DC Sevoflurane (Ultane) 90 ml STK-MED ONCE IH ; Start 11/28/16 at 09:59; Stop 11/28 at 10:00; Status DC Glycopyrrolate (Robinul) 1 mg STK-MED ONCE .ROUTE ; Start 11/28/16 at 12:18; Stop 11/28/16 at 12:19; Status DC Neostigmine Methylsulfate (Bloxiverz) 10 mg STK-MED ONCE .ROUTE ; Start at 12:18; Stop 11/28/16 at 12:19; Status DC Fentanyl Citrate (Fentanyl 2ml Vial) 100 mcg STK-MED ONCE .ROUTE ; Start at 13:16; Stop 11/28/16 at 13:17; Status DC Hydromorphone HCl (Dilaudid) 2 mg STK-MED ONCE .ROUTE ; Start 11/28/16 at 13:27 ; Stop 11/28/16 at 13:28; Status DC Enoxaparin Sodium (Lovenox 40mg Syringe) 40 mg Q24H SQ Last administered on t 08:26; Start 11/29/16 at 08:00; Stop 11/30/16 at 21:30; Status DC Sodium Chloride (Normal Saline Flush) 3 ml QSHIFT PRN IV AFTER MEDS AND BLOOD DRAWS; Start 11/28/16 at 13:30 Ringer's Solution 1,000 ml @ 100 mls/hr Q10H IV ; Start 11/28/16 at 13:26; Stop 11/30/16 at 10:52; Status DC Naloxone HCl (Narcan) 0.4 mg PRN Q2MIN PRN IV SEE INSTRUCTIONS; Start 11/28/16 at 13:30 Sodium Chloride 1,000 ml @ 25 mls/hr Q24H IV Last administered on 11/30/16 05 :55; Start 11/28/16 at 13:26; Stop 11/30/16 at 10:52; Status DC Hydromorphone HCl 30 ml @ 0 mls/hr CONT PRN PRN IV PROTOCOL Last administered on 11/29/16 18:35; Start 11/28/16 at 13:30; Stop 11/30/16 at 10:52; Status DC Ondansetron HCl (Zofran) 4 mg PRN Q6HRS PRN IV NAUESA, 1ST CHOICE; Start at 13:30 Fentanyl Citrate (Fentanyl 2ml Vial) 100 mcg STK-MED ONCE .ROUTE ; Start at 13:36; Stop 11/28/16 at 13:37; Status DC Prochlorperazine Edisylate (Compazine) 10 mg STK-MED ONCE .ROUTE ; Start at 13:37; Stop 11/28/16 at 13:38; Status DC Ibuprofen (Motrin) 200 mg PRN Q6HRS PRN PO INFLAMMATION Last administered on 05:57; Start 11/29/16 at 08:30 Albuterol Sulfate (Ventolin Neb Soln) 2.5 mg RTQID NEB Last administered on 16:33; Start 11/30/16 at 08:00; Stop 11/30/16 at 17:18; Status DC Acetaminophen/ Hydrocodone Bitart (Lortab 7.5/325) 1 tab PRN Q6HRS PRN PO PAIN ; Start 11/30/16 at 15:15 Acetaminophen/ Hydrocodone Bitart (Lortab 7.5/325) 2 tab PRN Q6HRS PRN PO PAIN ; Start 11/30/16 at 15:15 Albuterol Sulfate (Ventolin Neb Soln) 2.5 mg RTQID NEB ; Start 11/30/16 at 20:00 ; Stop 11/30/16 at 20:00; Status DC Albuterol Sulfate (Ventolin Neb Soln) 2.5 mg PRN QID PRN NEB SHORTNESS OF BREATH Last administered on 11/30/16 17:35; Start 11/30/16 at 17:20 Piperacillin Sod/ Tazobactam Sod 3.375 gm/Sodium Chloride 50 ml @ 100 mls/hr Q6HRS IV Last administered on 12/01/16 05:41; Start 11/30/16 at 18:00 Acetaminophen (Acetaminophen Supp) 650 mg PRN Q6HRS PRN [place] MILD PAIN / TEMP; Start 11/30/16 at 17:30 Iohexol (Omnipaque 300 Mg/ml) 75 ml 1X ONCE IV Last administered on 11/30/16 17:46; Start 11/30/16 at 17:45; Stop 11/30/16 at 17:46; Status DC Acetaminophen (Tylenol) 650 mg PRN Q6HRS PRN PO FEVER > 101 Last administered on 11/30/16 18:44; Start 11/30/16 at 17:30 Info (Do NOT chart on this entry -- for MONITORING) 1 each PRN DAILY PRN MC SEE COMMENTS; Start 11/30/16 at 17:45; Stop 12/02/16 at 17:44 Vancomycin HCl 1 gm/Sodium Chloride 250 ml @ 250 mls/hr 1X STAT IV ; Start at 18:19; Stop 11/30/16 at 19:18; Status UNV Budesonide (Pulmicort) 0.5 mg RTBID NEB ; Start 11/30/16 at 20:00; Stop at 20:56; Status DC Vancomycin HCl 1 gm/Sodium Chloride 250 ml @ 250 mls/hr 1X ONCE IV Last administered on 11/30/16 20:36; Start 11/30/16 at 18:45; Stop 11/30/16 at 19:44 ; Status DC Norepinephrine Bitartrate 250 ml @ As Directed STK-MED ONCE IV ; Start at 19:52; Stop 11/30/16 at 19:53; Status DC Rocuronium Fieldon (Zemuron) 50 mg STK-MED ONCE .ROUTE ; Start 11/30/16 at 20:00 ; Stop 11/30/16 at 20:01; Status DC Propofol 100 ml @ As Directed STK-MED ONCE IV ; Start 11/30/16 at 20:20; Stop 11/30/16 at 20:21; Status DC Hydrocortisone Sodium Succinate (Solu-CORTEF) 50 mg Q6HRS IV Last administered on 12/01/16 05:42; Start 11/30/16 at 20:15; Stop 12/01/16 at 08:11; Status DC Norepinephrine Bitartrate 250 ml @ 0 mls/hr CONT PRN IV SEE I/O RECORD Last administered on 11/30/16 20:38; Start 11/30/16 at 20:15 Sodium Chloride 1,000 ml @ 1,000 mls/hr 1X ONCE IV Last administered on 20:40; Start 11/30/16 at 20:15; Stop 11/30/16 at 21:14; Status DC Sodium Chloride 1,000 ml @ 1,000 mls/hr 1X ONCE IV Last administered on 20:37; Start 11/30/16 at 20:15; Stop 11/30/16 at 21:14; Status DC Sodium Chloride 1,000 ml @ 1,000 mls/hr 1X ONCE IV Last administered on 20:36; Start 11/30/16 at 20:15; Stop 11/30/16 at 21:14; Status DC Propofol 100 ml @ 0 mls/hr CONT PRN IV SEE I/O RECORD Last administered on 12/01 06:32; Start 11/30/16 at 20:15 Albuterol Sulfate (Ventolin Neb Soln) 2.5 mg RTQID NEB Last administered on 07:38; Start 12/01/16 at 08:00 Heparin Sodium (Porcine) (Heparin Sodium) 7,750 unit 1X ONCE IV Last administered on 11/30/16 21:55; Start 11/30/16 at 22:00; Stop 11/30/16 at 22:01 ; Status DC Heparin Sodium/ Dextrose 500 ml @ 0 mls/hr CONT PRN IV SEE I/O RECORD Last administered on 9/16/17at 21:58; Start 11/30/16 at 21:30 Heparin Sodium (Porcine) (Heparin Sodium) 2,900 unit PRN Q6HRS PRN IV FOR UFH LEVEL LESS THAN 0.2; Start 11/30/16 at 21:30 Heparin Sodium (Porcine) (Heparin Sodium) 1,450 unit PRN Q6HRS PRN IV FOR UFH LEVEL 0.2 - 0.29; Start 11/30/16 at 21:30 Rocuronium Fieldon (Zemuron) 50 mg 1X ONCE IV Last administered on 11/30/16 20:05; Start 12/01/16 at 04:45; Stop 12/01/16 at 04:46; Status DC Hydrocortisone Sodium Succinate (Solu-CORTEF) 50 mg Q8HRS IV ; Start 12/01/16 at 14:00 Famotidine (Pepcid) 20 mg BID IVP Last administered on 12/01/16 10:05; Start 12/01/16 at 10:00 Potassium Chloride (KCl Oral Soln) 20 meq 1X ONCE PEG Last administered on 10:05; Start 12/01/16 at 10:00; Stop 12/01/16 at 10:01; Status DC Vancomycin HCl (Vanco Per Pharmacy) 1 each PRN DAILY PRN MC SEE COMMENTS Last administered on 12/01/16 11:01; Start 12/01/16 at 10:15 Vancomycin HCl 1.5 gm/Sodium Chloride 500 ml @ 250 mls/hr Q12H IV Last administered on 12/01/16 10:27; Start 12/01/16 at 10:30 Vancomycin HCl 1 each 1X ONCE MC ; Start 12/02/16 at 22:00; Stop 12/02/16 at 22 :01 Active Scripts Active Hydrocodone-Apap 7.5-325 (Hydrocodone Bit/Acetaminophen) 1 Each Tablet 1 Tab PO PRN Q6HRS PRN 30 Days Levothyroxine Sodium 150 Mcg Tablet 1 Tab PO DAILY Bentyl (Dicyclomine Hcl) 10 Mg Capsule 20 Mg PO Q6HRS Reported Chantix (Varenicline Tartrate) 1 Mg Tablet 1 Mg PO BID Atorvastatin Calcium 20 Mg Tablet 40 Mg PO HS Vitamin D (Cholecalciferol (Vitamin D3)) 1,000 Unit Capsule 1,000 Unit PO DAILY Vitamin E 400 Unit Capsule 400 Unit PO DAILY Fish Oil ([place]-3 Fatty Acids) 500 Mg Capsule 500 Mg PO DAILY Magnesium Oxide 400 Mg Tablet 400 Mg PO QID Xanax (Alprazolam) 1 Mg Tablet 1 Mg PO QID Lasix (Furosemide) 40 Mg Tablet 40 Mg PO DAILY Aspirin 325 Mg Tablet 325 Mg PO DAILY Gabapentin 600 Mg Tablet 600 Mg PO TID Tizanidine Hcl 4 Mg Tablet 4 Mg PO QID Estradiol 1 Each Patch.tdwk 1 Each TD DAILY07 Omeprazole 20 Mg Tablet.dr 20 Mg PO DAILY07 Klor-Con (Potassium Chloride) 20 Meq Packet 20 Meq PO TID Proair Hfa Inhaler (Albuterol Sulfate) 8.5 Gm Hfa.aer.ad 8.5 Gm IH Q4HRS Advair 500-50 Diskus (Fluticasone/Salmeterol) 1 Each Disk.w.dev 1 Each IH BID Vitals/I & O Vital Sign - Last 24 Hours 11/30/16 11/30/16 11/30/16 11/30/16 11:43 12:01 12:14 14:00 Temp 98.6 98.6 Pulse 89 Resp 16 18 20 B/P (MAP) 95/52 (66) Pulse Ox 90 90 O2 Delivery Nasal Cannula Nasal Cannula Nasal Cannula Nasal Cannula O2 Flow Rate 2.0 2.0 2.0 2.0 11/30/16 11/30/16 11/30/16 11/30/16 14:30 15:00 16:34 17:00 Temp 97.4 103.0 97.4 103.0 Pulse 100 114 Resp 18 36 B/P (MAP) 121/66 (84) 117/63 (81) Pulse Ox 97 92 85 O2 Delivery Room Air Nasal Cannula Nasal Cannula Nasal Cannula O2 Flow Rate 2.0 2.0 2.0 11/30/16 11/30/16 11/30/16 11/30/16 17:15 17:29 18:45 19:00 Temp 100.3 100.3 Pulse 110 108 Resp 38 45 B/P (MAP) 107/54 (71) 106/49 (68) Pulse Ox 91 91 96 95 O2 Delivery Venturi Mask NonRebreather Mask Venturi Mask Venturi Mask O2 Flow Rate 15.0 15.0 15.0 11/30/16 11/30/16 11/30/16 11/30/16 19:15 19:30 19:35 19:45 Pulse 100 90 Resp 43 44 B/P (MAP) 87/44 (58) 73/45 (54) Pulse Ox 95 96 97 O2 Delivery Venturi Mask Venturi Mask Venturi Mask Venturi Mask O2 Flow Rate 15.0 15.0 15.0 11/30/16 11/30/16 11/30/16 11/30/16 19:45 20:00 20:15 20:15 Pulse 82 82 82 Resp 41 41 25 B/P (MAP) 63/36 (45) 72/35 (47) 90/34 (52) Pulse Ox 96 96 100 96 O2 Delivery Venturi Mask Venturi Mask Ventilator Ventilator O2 Flow Rate 15.0 15.0 11/30/16 11/30/16 11/30/16 11/30/16 20:15 20:30 20:45 21:00 Pulse 80 78 76 Resp 26 28 20 B/P (MAP) 92/35 (54) 99/53 (68) 92/43 (59) Pulse Ox 100 100 100 O2 Delivery Mechanical Ventilator Ventilator Ventilator Ventilator 11/30/16 11/30/16 11/30/16 11/30/16 21:15 21:30 21:35 22:00 Temp 98.7 98.7 Pulse 74 72 70 Resp 18 16 16 B/P (MAP) 85/45 (58) 91/47 (62) 93/46 (62) Pulse Ox 100 100 100 100 O2 Delivery Ventilator Ventilator Ventilator Ventilator 11/30/16 11/30/16 11/30/16 12/01/16 22:30 23:00 23:40 00:00 Temp 97.7 97.7 Pulse 68 66 64 Resp 16 16 16 B/P (MAP) 93/48 (63) 100/51 (67) 100/54 (69) Pulse Ox 100 100 100 99 O2 Delivery Ventilator Ventilator Ventilator Ventilator 12/01/16 12/01/16 12/01/16 12/01/16 00:26 01:00 01:55 02:00 Pulse 62 60 Resp 16 16 B/P (MAP) 109/56 (73) 104/55 (71) Pulse Ox 99 100 99 O2 Delivery Mechanical Ventilator Ventilator Ventilator Ventilator 12/01/16 12/01/16 12/01/16 12/01/16 03:00 03:53 04:00 04:00 Temp 97.9 97.9 Pulse 58 60 Resp 16 16 B/P (MAP) 99/55 (70) 98/58 (71) Pulse Ox 99 100 99 O2 Delivery Ventilator Ventilator Ventilator Mechanical Ventilator 12/01/16 12/01/16 12/01/16 12/01/16 04:45 05:00 05:15 06:00 Pulse 60 62 64 59 Resp 16 16 16 16 B/P (MAP) 104/52 (69) 79/47 (58) 84/51 (62) 102/53 (69) Pulse Ox 99 99 99 97 O2 Delivery Ventilator Ventilator Ventilator Ventilator 12/01/16 12/01/16 12/01/16 12/01/16 06:11 07:00 07:23 07:39 Temp 97.4 97.4 Pulse 64 Resp 16 B/P (MAP) 126/64 (84) Pulse Ox 97 95 96 O2 Delivery Ventilator Ventilator Mechanical Ventilator Ventilator 12/01/16 12/01/16 12/01/16 12/01/16 08:00 09:00 10:00 10:01 Pulse 66 68 60 Resp 18 24 20 B/P (MAP) 125/72 (89) 116/74 (88) 100/56 (71) Pulse Ox 98 95 96 88 O2 Delivery Ventilator Ventilator Ventilator Ventilator 12/01/16 12/01/16 10:06 10:38 Resp 20 20 Intake and Output 12/01/16 12/01/16 12/02/16 15:00 23:00 07:00 Intake Total 120 ml Output Total 285 ml Balance -165 ml NICOLAS HICKS MD Dec 01, 2016 11:24
[2016-12-01 12:14] LABS: HCO3 ABG 24 mmol/L (21-28); PCO2 ABG 36 mmHg (35-46); PH ABG 7.44 (7.35-7.45); PO2 ABG 64 mmHg (65-108); SAT O2 ABG 93 % (92-99)
[2016-12-01] MEDS: PIPERACILLIN/TAZOBACTAM 4.5 GM in IV NORMAL SALINE 100ML 100 ML IV SCH ×2 (12:32→17:45)
[2016-12-01 12:35] LABS: FIO2 ABG 50
[2016-12-01] MEDS: HEPARIN 25,000UTS/500ML PREMIX 500 ML IV PRN (15:46)
[2016-12-02] VITALS (37 sets, daily range): BP systolic 106–179; BP diastolic 59–88
[2016-12-02] MEDS: fentaNYL PF VIAL 100 MCG/2 ML VIAL IV PRN ×3 (00:19→21:44)
[2016-12-02] MEDS: PIPERACILLIN/TAZOBACTAM 4.5 GM in IV NORMAL SALINE 100ML 100 ML IV SCH ×4 (00:19→18:25)
[2016-12-02] MEDS: PROPOFOL 100 ML IV PRN ×2 (01:59→15:57)
[2016-12-02] MEDS: HYDROCORTISONE SOD SUCC/PF 100 MG/2 ML VIAL. IV SCH ×3 (05:44→21:44)
[2016-12-02] MEDS: LEVOTHYROXINE 150 MCG TABLET PO SCH (05:45)
[2016-12-02 06:32] LABS: HEMATOCRIT 22.7 % (36.0-47.0); HEMOGLOBIN 7.4 g/dL (12.0-15.5); RED BLOOD COUNT 2.73 x10^6/uL (3.50-5.40); RED CELL DISTRIBUTION WIDTH 15.4 % (11.5-14.5); WHITE BLOOD COUNT 14.9 x10^3/uL (4.0-11.0)
[2016-12-02 06:40] LABS: CALCIUM 8.2 mg/dL (8.5-10.1); CREATININE 0.8 mg/dL (0.6-1.0); GFR 73.4; POTASSIUM 3.5 mmol/L (3.5-5.1)
--- NOTE | 2016-12-02 07:26 | RAD ---
Bilateral lower extremity venous ultrasound, 12/01/2016: History: Pain, pulmonary emboli Duplex evaluation of the deep veins in the lower extremities was performed including grayscale, color-flow and spectral Doppler analysis. The femoral and popliteal veins demonstrate normal compressibility and normal responses to distal augmentation maneuvers. Color imaging of those vessels shows no evidence of intraluminal clot. The visualized deep veins in both calves are patent. IMPRESSION: There is no sonographic evidence of deep vein thrombosis in either lower extremity.
[2016-12-02] MEDS: PANTOPRAZOLE 40 MG TABLET.DR. PO SCH (07:30)
[2016-12-02] MEDS: BUDESONIDE 0.5 MG/2 ML NEBU. NEB SCH ×2 (07:43→19:40)
[2016-12-02] MEDS: ALBUTEROL SULFATE 2.5 MG/3 ML NEBU. NEB SCH ×4 (07:43→19:40)
[2016-12-02] MEDS ORDERED: FUROSEMIDE 20 MG/2 ML VIAL. IV PRN (08:00)
--- NOTE | 2016-12-02 08:02 | PDOC ---
PROGRESS NOTES Subjective Subjective Patient sedated on vent. Objective Objective Vital Signs Date Time Temp Pulse Resp B/P (MAP) Pulse Ox O2 Delivery O2 Flow Rate FiO2 12/02/16 06:00 57 17 110/67 (81) 97 Ventilator 12/02/16 04:00 98.7 98.7 12/02/16 00:49 15.0 Physical Exam Abdomen: Normal bowel sounds, Soft, Other (liquid stool in ostomy bag, incisions without erythema or exudate) Heart: Regular rate Extremities: No edema General: No acute distress Lungs: Clear to auscultation Assessment Assessment Problems Medical Problems: (1) Abdominal pain Status: Acute Plan Plan of Care 1. Acute respiratory failure with pneumonia and COPD - improving, continue abx, steroids and nebs. Hope to work towards weaning soon. No longer requiring pressors to maintain BP. 2. PE's - LE's without DVT on sono. Presently on Heparin gtt, should be able to transition to Lovenox. 3. anemia - Hgb decreased to 7.4 this AM. No evidence of active bleeding at this time, suspect combination of post-operative and dilution. Transfusion ordered. 4. POD #4 hernia repair - ostomy appears to be functioning well. Comment Review of Relevant I have reviewed the following items chris (where applicable) has been applied. Labs Laboratory Tests Test 11/30/16 19:20 11/30/16 19:45 11/30/16 19:50 11/30/16 21:45 White Blood Count 15.0 x10^3/uL (4.0-11.0) Red Blood Count 3.24 x10^6/uL (3.50-5.40) Hemoglobin 8.9 g/dL (12.0-15.5) Hematocrit 27.3 % (36.0-47.0) Mean Corpuscular Volume 84 fL (79-100) Mean Corpuscular Hemoglobin 27 pg (25-35) Mean Corpuscular Hemoglobin Concent 32 g/dL (31-37) Red Cell Distribution Width 14.9 % (11.5-14.5) Platelet Count 321 x10^3/uL (140-400) Neutrophils (%) (Auto) 84 % (31-73) Lymphocytes (%) (Auto) 9 % (24-48) Monocytes (%) (Auto) 6 % (0-9) Eosinophils (%) (Auto) 1 % (0-3) Basophils (%) (Auto) 0 % (0-3) Neutrophils # (Auto) 12.7 x10^3uL (1.8-7.7) Lymphocytes # (Auto) 1.3 x10^3/uL (1.0-4.8) Monocytes # (Auto) 0.9 x10^3/uL (0.0-1.1) Eosinophils # (Auto) 0.1 x10^3/uL (0.0-0.7) Basophils # (Auto) 0.1 x10^3/uL (0.0-0.2) Lactic Acid Level 0.7 mmol/L (0.4-2.0) Sodium Level 132 mmol/L (136-145) Potassium Level 3.9 mmol/L (3.5-5.1) Chloride Level 97 mmol/L (98-107) Carbon Dioxide Level 26 mmol/L (21-32) Anion Gap 9 (6-14) Blood Urea Nitrogen 9 mg/dL (7-20) Creatinine 0.9 mg/dL (0.6-1.0) Estimated GFR (Cockcroft-Gault) 64.1 Glucose Level 105 mg/dL (70-99) Calcium Level 8.3 mg/dL (8.5-10.1) O2 Saturation 94 % (92-99) 99 % (92-99) Arterial Blood pH 7.43 (7.35-7.45) 7.39 (7.35-7.45) Arterial Blood pH (Temp corrected) 7.40 Arterial Blood pCO2 at Patient Temp 38 mmHg (35-46) 38 mmHg (35-46) Arterial Blood pCO2 (Temp correct) 42 mmHg Arterial Blood pO2 at Patient Temp 73 mmHg (65-108) 275 mmHg (65-108) Arterial Blood pO2 (Temp corrected) 86 mmHg Arterial Blood HCO3 25 mmol/L (21-28) 23 mmol/L (21-28) Arterial Blood Base Excess 0 mmol/L (-3-3) -2 mmol/L (-3-3) FiO2 50 100 Test 12/01/16 02:00 12/01/16 03:12 12/01/16 08:00 12/01/16 09:58 White Blood Count 23.3 x10^3/uL (4.0-11.0) Red Blood Count 3.25 x10^6/uL (3.50-5.40) Hemoglobin 9.0 g/dL (12.0-15.5) Hematocrit 27.1 % (36.0-47.0) Mean Corpuscular Volume 84 fL (79-100) Mean Corpuscular Hemoglobin 28 pg (25-35) Mean Corpuscular Hemoglobin Concent 33 g/dL (31-37) Red Cell Distribution Width 15.5 % (11.5-14.5) Platelet Count 384 x10^3/uL (140-400) Neutrophils (%) (Auto) 92 % (31-73) Lymphocytes (%) (Auto) 5 % (24-48) Monocytes (%) (Auto) 3 % (0-9) Eosinophils (%) (Auto) 0 % (0-3) Basophils (%) (Auto) 0 % (0-3) Neutrophils # (Auto) 21.4 x10^3uL (1.8-7.7) Lymphocytes # (Auto) 1.1 x10^3/uL (1.0-4.8) Monocytes # (Auto) 0.7 x10^3/uL (0.0-1.1) Eosinophils # (Auto) 0.0 x10^3/uL (0.0-0.7) Basophils # (Auto) 0.0 x10^3/uL (0.0-0.2) Segmented Neutrophils % 81 % (35-66) Band Neutrophils % 14 % (0-9) Lymphocytes % 2 % (24-48) Monocytes % 3 % (0-10) Platelet Estimate Increased (ADEQUATE) Anisocytosis Present Sodium Level 139 mmol/L (136-145) Potassium Level 3.6 mmol/L (3.5-5.1) Chloride Level 103 mmol/L (98-107) Carbon Dioxide Level 24 mmol/L (21-32) Anion Gap 12 (6-14) Blood Urea Nitrogen 7 mg/dL (7-20) Creatinine 0.8 mg/dL (0.6-1.0) Estimated GFR (Cockcroft-Gault) 73.4 BUN/Creatinine Ratio 9 (6-20) Glucose Level 142 mg/dL (70-99) Calcium Level 8.5 mg/dL (8.5-10.1) Magnesium Level 1.9 mg/dL (1.8-2.4) Total Bilirubin 0.5 mg/dL (0.2-1.0) Aspartate Amino Transf (AST/SGOT) 16 U/L (15-37) Alanine Aminotransferase (ALT/SGPT) 12 U/L (14-59) Alkaline Phosphatase 134 U/L (46-116) Total Protein 6.1 g/dL (6.4-8.2) Albumin 2.3 g/dL (3.4-5.0) Albumin/Globulin Ratio 0.6 (1.0-1.7) Heparin Anti-Xa Act, Unfractionated 1.03 IU/mL (0.30-0.70) 0.38 IU/mL (0.30-0.70) O2 Saturation 78 % (92-99) Arterial Blood pH 7.47 (7.35-7.45) Arterial Blood pCO2 at Patient Temp 33 mmHg (35-46) Arterial Blood pO2 at Patient Temp < 42 mmHg (65-108) Arterial Blood HCO3 23 mmol/L (21-28) Arterial Blood Base Excess 0 mmol/L (-3-3) Test 12/01/16 12:00 12/01/16 12:10 12/01/16 16:25 12/01/16 23:30 O2 Saturation 93 % (92-99) Arterial Blood pH 7.44 (7.35-7.45) Arterial Blood pCO2 at Patient Temp 36 mmHg (35-46) Arterial Blood pO2 at Patient Temp 64 mmHg (65-108) Arterial Blood HCO3 24 mmol/L (21-28) Arterial Blood Base Excess 0 mmol/L (-3-3) FiO2 50 Nasal Screen MRSA (PCR) Negative (Negative) Heparin Anti-Xa Act, Unfractionated 0.27 IU/mL (0.30-0.70) 0.44 IU/mL (0.30-0.70) Test 12/02/16 06:20 White Blood Count 14.9 x10^3/uL (4.0-11.0) Red Blood Count 2.73 x10^6/uL (3.50-5.40) Hemoglobin 7.4 g/dL (12.0-15.5) Hematocrit 22.7 % (36.0-47.0) Mean Corpuscular Volume 83 fL (79-100) Mean Corpuscular Hemoglobin 27 pg (25-35) Mean Corpuscular Hemoglobin Concent 33 g/dL (31-37) Red Cell Distribution Width 15.4 % (11.5-14.5) Platelet Count 307 x10^3/uL (140-400) Heparin Anti-Xa Act, Unfractionated 0.33 IU/mL (0.30-0.70) Sodium Level 140 mmol/L (136-145) Potassium Level 3.5 mmol/L (3.5-5.1) Chloride Level 107 mmol/L (98-107) Carbon Dioxide Level 25 mmol/L (21-32) Anion Gap 8 (6-14) Blood Urea Nitrogen 11 mg/dL (7-20) Creatinine 0.8 mg/dL (0.6-1.0) Estimated GFR (Cockcroft-Gault) 73.4 Glucose Level 108 mg/dL (70-99) Calcium Level 8.2 mg/dL (8.5-10.1) Laboratory Tests Test 12/01/16 08:00 12/01/16 09:58 12/01/16 12:00 12/01/16 12:10 O2 Saturation 78 % (92-99) 93 % (92-99) Arterial Blood pH 7.47 (7.35-7.45) 7.44 (7.35-7.45) Arterial Blood pCO2 at Patient Temp 33 mmHg (35-46) 36 mmHg (35-46) Arterial Blood pO2 at Patient Temp < 42 mmHg (65-108) 64 mmHg (65-108) Arterial Blood HCO3 23 mmol/L (21-28) 24 mmol/L (21-28) Arterial Blood Base Excess 0 mmol/L (-3-3) 0 mmol/L (-3-3) Heparin Anti-Xa Act, Unfractionated 0.38 IU/mL (0.30-0.70) FiO2 50 Nasal Screen MRSA (PCR) Negative (Negative) Test 12/01/16 16:25 12/01/16 23:30 12/02/16 06:20 Heparin Anti-Xa Act, Unfractionated 0.27 IU/mL (0.30-0.70) 0.44 IU/mL (0.30-0.70) 0.33 IU/mL (0.30-0.70) White Blood Count 14.9 x10^3/uL (4.0-11.0) Red Blood Count 2.73 x10^6/uL (3.50-5.40) Hemoglobin 7.4 g/dL (12.0-15.5) Hematocrit 22.7 % (36.0-47.0) Mean Corpuscular Volume 83 fL (79-100) Mean Corpuscular Hemoglobin 27 pg (25-35) Mean Corpuscular Hemoglobin Concent 33 g/dL (31-37) Red Cell Distribution Width 15.4 % (11.5-14.5) Platelet Count 307 x10^3/uL (140-400) Sodium Level 140 mmol/L (136-145) Potassium Level 3.5 mmol/L (3.5-5.1) Chloride Level 107 mmol/L (98-107) Carbon Dioxide Level 25 mmol/L (21-32) Anion Gap 8 (6-14) Blood Urea Nitrogen 11 mg/dL (7-20) Creatinine 0.8 mg/dL (0.6-1.0) Estimated GFR (Cockcroft-Gault) 73.4 Glucose Level 108 mg/dL (70-99) Calcium Level 8.2 mg/dL (8.5-10.1) Microbiology 11/30/16 Blood Culture - Preliminary, Resulted NO GROWTH AFTER 1 DAY 12/01/16 Gram Stain - Final, Complete Medications Current Medications Fentanyl Citrate (Fentanyl 2ml Vial) 50 mcg PRN Q15MIN PRN IV PAIN GREATER THAN 3/10 Last administered on 11/26/16 19:41; Start 11/26/16 at 18:00; Stop at 17:59; Status DC Sodium Chloride 1,000 ml @ 1,000 mls/hr Q1H IV Last administered on 11/26/16 18:20; Start 11/26/16 at 18:00; Stop 11/26/16 at 18:59; Status DC Ondansetron HCl (Zofran) 4 mg 1X ONCE IV Last administered on 11/26/16 18:19 ; Start 11/26/16 at 18:00; Stop 11/26/16 at 18:01; Status DC Iohexol (Omnipaque 300 Mg/ml) 60 ml 1X ONCE IV Last administered on 11/26/16 18:39; Start 11/26/16 at 18:15; Stop 11/26/16 at 18:16; Status DC Info (Do NOT chart on this entry -- for MONITORING) 1 each PRN DAILY PRN MC SEE COMMENTS; Start 11/26/16 at 18:15; Stop 11/28/16 at 18:14; Status DC Ondansetron HCl (Zofran) 4 mg PRN Q8HRS PRN IV NAUSEA/VOMITING; Start 11/26/16 at 19:45; Stop 11/27/16 at 19:44; Status DC Fentanyl Citrate (Fentanyl 2ml Vial) 50 mcg PRN Q1HR PRN IV PAIN Last administered on 11/27/16 16:15; Start 11/26/16 at 19:45; Stop 11/27/16 at 19:44 ; Status DC Sodium Chloride 1,000 ml @ 100 mls/hr Q10H IV Last administered on 11/27/16 16:17; Start 11/26/16 at 20:00; Stop 11/27/16 at 19:59; Status DC Acetaminophen (Tylenol) 650 mg PRN Q4HRS PRN PO FEVER; Start 11/26/16 at 19:45 ; Stop 11/27/16 at 19:44; Status DC Gabapentin (Neurontin) 600 mg 1X ONCE PO Last administered on 11/26/16 22:14 ; Start 11/26/16 at 21:45; Stop 11/26/16 at 21:46; Status DC Varenicline (Chantix) 1 mg 1X ONCE PO Last administered on 11/26/16 22:15; Start 11/26/16 at 21:45; Stop 11/26/16 at 21:46; Status DC Atorvastatin Calcium (Lipitor) 40 mg 1X ONCE PO Last administered on 22:15; Start 11/26/16 at 21:45; Stop 11/26/16 at 21:46; Status DC Alprazolam (Xanax) 1 mg 1X ONCE PO Last administered on 11/26/16 22:15; Start 11/26/16 at 21:45; Stop 11/26/16 at 21:46; Status DC Tizanidine HCl (Zanaflex) 4 mg 1X ONCE PO Last administered on 11/26/16 22:15 ; Start 11/26/16 at 21:45; Stop 11/26/16 at 21:46; Status DC Potassium Chloride (Klor-Con) 20 meq 1X ONCE PO Last administered on 22:14; Start 11/26/16 at 21:45; Stop 11/26/16 at 21:46; Status DC Alprazolam (Xanax) 1 mg PRN QID PRN PO ANXIETY / AGITATION Last administered on 12/01/16 15:07; Start 11/27/16 at 08:45 Aspirin (Nader Aspirin) 325 mg DAILY PO Last administered on 12/01/16 09:22; Start 11/27/16 at 09:00 Atorvastatin Calcium (Lipitor) 40 mg HS PO Last administered on 12/01/16 21:02 ; Start 11/27/16 at 21:00 Dicyclomine HCl (Bentyl) 20 mg PRN Q6HRS PRN PO GI PAIN Last administered on 20:33; Start 11/27/16 at 08:45 Furosemide (Lasix) 40 mg DAILY PO Last administered on 11/30/16 08:27; Start 11/27/16 at 09:00 Acetaminophen/ Hydrocodone Bitart (Lortab 7.5/325) 1 tab PRN Q6HRS PRN PO PAIN Last administered on 11/30/16 11:14; Start 11/27/16 at 08:45; Stop 11/30/16 at 15:03; Status DC Levothyroxine Sodium (Synthroid) 150 mcg DAILY07 PO Last administered on 05:45; Start 11/27/16 at 10:30 Magnesium Oxide (Magnesium Oxide) 400 mg QID PO Last administered on 12/01/16 21:02; Start 11/27/16 at 09:00 Tizanidine HCl (Zanaflex) 4 mg QID PO Last administered on 12/01/16 21:02; Start 11/27/16 at 09:00 Non-Formulary Medication 8.5 gm Q4HRS IH ; Start 11/27/16 at 12:00; Stop at 12:00; Status DC Vitamin D (Vitamin D3) 1,000 unit DAILY PO Last administered on 12/01/16 09:22 ; Start 11/27/16 at 09:00 Non-Formulary Medication 1 each BID IH ; Start 11/27/16 at 09:00; Stop 11/27/16 at 09:38; Status DC Gabapentin (Neurontin) 600 mg TID PO Last administered on 12/01/16 21:02; Start 11/27/16 at 09:00 Fish Oil (Fish Oil) 1,000 mg DAILY PO Last administered on 12/01/16 09:22; Start 11/27/16 at 09:00 Pantoprazole Sodium (Protonix) 40 mg DAILYAC PO Last administered on 11/30/16 05:55; Start 11/27/16 at 11:30 Potassium Chloride (Klor-Con) 20 meq TIDWMEALS PO Last administered on 18:45; Start 11/27/16 at 09:00; Stop 12/01/16 at 09:57; Status DC Vitamin E 400 unit DAILY PO Last administered on 12/01/16 09:23; Start at 09:00 Varenicline (Chantix) 1 mg BID PO Last administered on 11/30/16 08:26; Start 11/27/16 at 09:00 Albuterol Sulfate (Ventolin Neb Soln) 2.5 mg Q4HRS NEB Last administered on 23:02; Start 11/27/16 at 12:00; Stop 11/29/16 at 23:05; Status DC Budesonide (Pulmicort) 0.5 mg RTBID NEB Last administered on 12/02/16 07:43; Start 11/27/16 at 10:00 Iohexol (Omnipaque 350 Mg/ml) 300 ml 1X ONCE PO Last administered on 13:30; Start 11/27/16 at 12:45; Stop 11/27/16 at 12:48; Status DC Iohexol (Omnipaque 350 Mg/ml) 100 ml STK-MED ONCE .ROUTE ; Start 11/27/16 at 13: 04; Stop 11/27/16 at 13:05; Status DC Iohexol (Omnipaque 300 Mg/ml) 300 ml 1X ONCE PO ; Start 11/27/16 at 13:30; Stop 11/27/16 at 13:31; Status DC Info (Do NOT chart on this entry -- for MONITORING) 1 each PRN DAILY PRN MC SEE COMMENTS; Start 11/27/16 at 13:30; Stop 11/29/16 at 13:29; Status DC Iohexol (Omnipaque 350 Mg/ml) 100 ml STK-MED ONCE .ROUTE ; Start 11/27/16 at 13: 24; Stop 11/27/16 at 13:25; Status DC Ondansetron HCl (Zofran) 4 mg PRN Q6HRS PRN IV NAUSEA/VOMITING; Start 11/28/16 at 07:00; Stop 11/28/16 at 07:00; Status DC Fentanyl Citrate (Fentanyl 2ml Vial) 25 mcg PRN Q5MIN PRN IV MILD PAIN; Start 11/28/16 at 07:00; Stop 11/28/16 at 18:00; Status DC Fentanyl Citrate (Fentanyl 2ml Vial) 50 mcg PRN Q5MIN PRN IV MODERATE PAIN Last administered on 11/28/16 13:50; Start 11/28/16 at 07:00; Stop 11/28/16 at 18:00; Status DC Morphine Sulfate 1 mg PRN Q10MIN PRN IV SEVERE PAIN; Start 11/28/16 at 07:00; Stop 11/28/16 at 18:00; Status DC Ringer's Solution 1,000 ml @ 30 mls/hr Q24H IV Last administered on 11/28/16 07:47; Start 11/28/16 at 07:00; Stop 11/28/16 at 18:59; Status DC Lidocaine HCl 2 ml PRN 1X PRN ID PRIOR TO IV START; Start 11/28/16 at 07:00; Stop 11/28/16 at 18:00; Status DC Hydromorphone HCl (Dilaudid) 0.5 mg PRN Q10MIN PRN IV SEV PAIN, Second choice Last administered on 11/28/16 14:11; Start 11/28/16 at 07:00; Stop 11/28/16 at 18:00; Status DC Prochlorperazine Edisylate (Compazine) 5 mg PACU PRN PRN IV NAUSEA, MRX1 Last administered on 11/28/16 13:42; Start 11/28/16 at 07:00; Stop 11/28/16 at 18:00 ; Status DC Cefoxitin Sodium 2 gm/Sodium Chloride 100 ml @ 200 mls/hr 1X PREOP IV ; Start 11/27/16 at 19:15; Stop 11/27/16 at 19:15; Status DC Cefoxitin Sodium 2 gm/Sodium Chloride 100 ml @ 200 mls/hr 1X PREOP ONCE IV Last administered on 11/28/16 09:15; Start 11/28/16 at 06:00; Stop 11/28/16 at 06:29; Status DC Fentanyl Citrate (Fentanyl 2ml Vial) 50 mcg PRN Q2HR PRN IV SEVERE PAIN Last administered on 12/02/16 00:19; Start 11/27/16 at 23:00 Fentanyl Citrate (Fentanyl 2ml Vial) 25 mcg PRN Q2HR PRN IV MODERATE PAIN Last administered on 12/01/16 15:07; Start 11/27/16 at 23:00 Ondansetron HCl (Zofran) 4 mg PRN Q6HRS PRN IV NAUSEA/VOMITING; Start 11/28/16 at 03:45; Status Cancel Ondansetron HCl (Zofran) 4 mg PRN Q6HRS PRN IV NAUSEA/VOMITING Last administered on 11/29/16 12:25; Start 11/28/16 at 04:00; Stop 11/29/16 at 14:02 ; Status DC Ondansetron HCl (Zofran) 4 mg PRN Q6HRS PRN IV NAUSEA/VOMITING; Start 11/28/16 at 07:00; Stop 11/28/16 at 19:00; Status DC Bupivacaine HCl/ Epinephrine Bitart (Marcaine-Epi 0.5%-[id number]) 50 ml STK-MED ONCE .ROUTE ; Start 11/28/16 at 07:52; Stop 11/28/16 at 07:53; Status DC Fentanyl Citrate (Fentanyl 2ml Vial) 100 mcg STK-MED ONCE .ROUTE ; Start at 08:39; Stop 11/28/16 at 08:40; Status DC Rocuronium [place] (Zemuron) 100 mg STK-MED ONCE .ROUTE ; Start 11/28/16 at 08: 39; Stop 11/28/16 at 08:40; Status DC Cefoxitin Sodium 100 ml @ As Directed STK-MED ONCE IV ; Start 11/28/16 at 08:39 ; Stop 11/28/16 at 08:40; Status DC Dexamethasone Sodium Phosphate (Decadron) 20 mg STK-MED ONCE .ROUTE ; Start at 08:39; Stop 11/28/16 at 08:40; Status DC Ondansetron HCl (Zofran) 4 mg STK-MED ONCE .ROUTE ; Start 11/28/16 at 08:39; Stop 11/28/16 at 08:40; Status DC Propofol 20 ml @ As Directed STK-MED ONCE IV ; Start 11/28/16 at 08:39; Stop at 08:40; Status DC Lidocaine HCl (Lidocaine Pf 2% Vial) 5 ml STK-MED ONCE .ROUTE ; Start 11/28/16 at 08:39; Stop 11/28/16 at 08:40; Status DC Midazolam HCl (Versed) 2 mg STK-MED ONCE .ROUTE ; Start 11/28/16 at 09:00; Stop 11/28/16 at 09:01; Status DC Fentanyl Citrate (Fentanyl 5ml Vial) 250 mcg STK-MED ONCE .ROUTE ; Start at 09:28; Stop 11/28/16 at 09:29; Status DC Sevoflurane (Ultane) 90 ml STK-MED ONCE IH ; Start 11/28/16 at 09:59; Stop 11/28 at 10:00; Status DC Glycopyrrolate (Robinul) 1 mg STK-MED ONCE .ROUTE ; Start 11/28/16 at 12:18; Stop 11/28/16 at 12:19; Status DC Neostigmine Methylsulfate (Bloxiverz) 10 mg STK-MED ONCE .ROUTE ; Start at 12:18; Stop 11/28/16 at 12:19; Status DC Fentanyl Citrate (Fentanyl 2ml Vial) 100 mcg STK-MED ONCE .ROUTE ; Start at 13:16; Stop 11/28/16 at 13:17; Status DC Hydromorphone HCl (Dilaudid) 2 mg STK-MED ONCE .ROUTE ; Start 11/28/16 at 13:27 ; Stop 11/28/16 at 13:28; Status DC Enoxaparin Sodium (Lovenox 40mg Syringe) 40 mg Q24H SQ Last administered on 08:26; Start 11/29/16 at 08:00; Stop 11/30/16 at 21:30; Status DC Sodium Chloride (Normal Saline Flush) 3 ml QSHIFT PRN IV AFTER MEDS AND BLOOD DRAWS; Start 11/28/16 at 13:30 Ringer's Solution 1,000 ml @ 100 mls/hr Q10H IV ; Start 11/28/16 at 13:26; Stop 11/30/16 at 10:52; Status DC Naloxone HCl (Narcan) 0.4 mg PRN Q2MIN PRN IV SEE INSTRUCTIONS; Start 11/28/16 at 13:30 Sodium Chloride 1,000 ml @ 25 mls/hr Q24H IV Last administered on 11/30/16 05 :55; Start 11/28/16 at 13:26; Stop 11/30/16 at 10:52; Status DC Hydromorphone HCl 30 ml @ 0 mls/hr CONT PRN PRN IV PROTOCOL Last administered on 11/29/16 18:35; Start 11/28/16 at 13:30; Stop 11/30/16 at 10:52; Status DC Ondansetron HCl (Zofran) 4 mg PRN Q6HRS PRN IV NAUESA, 1ST CHOICE; Start at 13:30 Fentanyl Citrate (Fentanyl 2ml Vial) 100 mcg STK-MED ONCE .ROUTE ; Start at 13:36; Stop 11/28/16 at 13:37; Status DC Prochlorperazine Edisylate (Compazine) 10 mg STK-MED ONCE .ROUTE ; Start at 13:37; Stop 11/28/16 at 13:38; Status DC Ibuprofen (Motrin) 200 mg PRN Q6HRS PRN PO INFLAMMATION Last administered on 05:57; Start 11/29/16 at 08:30 Albuterol Sulfate (Ventolin Neb Soln) 2.5 mg RTQID NEB Last administered on 16:33; Start 11/30/16 at 08:00; Stop 11/30/16 at 17:18; Status DC Acetaminophen/ Hydrocodone Bitart (Lortab 7.5/325) 1 tab PRN Q6HRS PRN PO PAIN ; Start 11/30/16 at 15:15 Acetaminophen/ Hydrocodone Bitart (Lortab 7.5/325) 2 tab PRN Q6HRS PRN PO PAIN ; Start 11/30/16 at 15:15 Albuterol Sulfate (Ventolin Neb Soln) 2.5 mg RTQID NEB ; Start 11/30/16 at 20:00 ; Stop 11/30/16 at 20:00; Status DC Albuterol Sulfate (Ventolin Neb Soln) 2.5 mg PRN QID PRN NEB SHORTNESS OF BREATH Last administered on 11/30/16 17:35; Start 11/30/16 at 17:20 Piperacillin Sod/ Tazobactam Sod 3.375 gm/Sodium Chloride 50 ml @ 100 mls/hr Q6HRS IV Last administered on 12/01/16 05:41; Start 11/30/16 at 18:00; Stop at 11:07; Status DC Acetaminophen (Acetaminophen Supp) 650 mg PRN Q6HRS PRN MO MILD PAIN / TEMP; Start 11/30/16 at 17:30 Iohexol (Omnipaque 300 Mg/ml) 75 ml 1X ONCE IV Last administered on 11/30/16 17:46; Start 11/30/16 at 17:45; Stop 11/30/16 at 17:46; Status DC Acetaminophen (Tylenol) 650 mg PRN Q6HRS PRN PO FEVER > 101 Last administered on 11/30/16t 18:44; Start 11/30/16 at 17:30 Info (Do NOT chart on this entry -- for MONITORING) 1 each PRN DAILY PRN MC SEE COMMENTS; Start 11/30/16 at 17:45; Stop 12/02/16 at 17:44 Vancomycin HCl 1 gm/Sodium Chloride 250 ml @ 250 mls/hr 1X STAT IV ; Start at 18:19; Stop 11/30/16 at 19:18; Status UNV Budesonide (Pulmicort) 0.5 mg RTBID NEB ; Start 11/30/16 at 20:00; Stop at 20:56; Status DC Vancomycin HCl 1 gm/Sodium Chloride 250 ml @ 250 mls/hr 1X ONCE IV Last administered on 11/30/16 20:36; Start 11/30/16 at 18:45; Stop 11/30/16 at 19:44 ; Status DC Norepinephrine Bitartrate 250 ml @ As Directed STK-MED ONCE IV ; Start at 19:52; Stop 11/30/16 at 19:53; Status DC Rocuronium [place] (Zemuron) 50 mg STK-MED ONCE .ROUTE ; Start 11/30/16 at 20:00 ; Stop 11/30/16 at 20:01; Status DC Propofol 100 ml @ As Directed STK-MED ONCE IV ; Start 11/30/16 at 20:20; Stop 11/30/16 at 20:21; Status DC Hydrocortisone Sodium Succinate (Solu-CORTEF) 50 mg Q6HRS IV Last administered on 12/01/16 05:42; Start 11/30/16 at 20:15; Stop 12/01/16 at 08:11; Status DC Norepinephrine Bitartrate 250 ml @ 0 mls/hr CONT PRN IV SEE I/O RECORD Last administered on 11/30/16 20:38; Start 11/30/16 at 20:15 Sodium Chloride 1,000 ml @ 1,000 mls/hr 1X ONCE IV Last administered on 20:40; Start 11/30/16 at 20:15; Stop 11/30/16 at 21:14; Status DC Sodium Chloride 1,000 ml @ 1,000 mls/hr 1X ONCE IV Last administered on 20:37; Start 11/30/16 at 20:15; Stop 11/30/16 at 21:14; Status DC Sodium Chloride 1,000 ml @ 1,000 mls/hr 1X ONCE IV Last administered on 20:36; Start 11/30/16 at 20:15; Stop 11/30/16 at 21:14; Status DC Propofol 100 ml @ 0 mls/hr CONT PRN IV SEE I/O RECORD Last administered on 12/02 01:59; Start 11/30/16 at 20:15 Albuterol Sulfate (Ventolin Neb Soln) 2.5 mg RTQID NEB Last administered on 07:43; Start 12/01/16 at 08:00 Heparin Sodium (Porcine) (Heparin Sodium) 7,750 unit 1X ONCE IV Last administered on 11/30/16 21:55; Start 11/30/16 at 22:00; Stop 11/30/16 at 22:01 ; Status DC Heparin Sodium/ Dextrose 500 ml @ 0 mls/hr CONT PRN IV SEE I/O RECORD Last administered on 12/01/16 15:46; Start 11/30/16 at 21:30 Heparin Sodium (Porcine) (Heparin Sodium) 2,900 unit PRN Q6HRS PRN IV FOR UFH LEVEL LESS THAN 0.2; Start 11/30/16 at 21:30 Heparin Sodium (Porcine) (Heparin Sodium) 1,450 unit PRN Q6HRS PRN IV FOR UFH LEVEL 0.2 - 0.29 Last administered on 12/01/16 17:29; Start 11/30/16 at 21:30 Rocuronium [place] (Zemuron) 50 mg 1X ONCE IV Last administered on 11/30/16 20:05; Start 12/01/16 at 04:45; Stop 12/01/16 at 04:46; Status DC Hydrocortisone Sodium Succinate (Solu-CORTEF) 50 mg Q8HRS IV Last administered on 12/02/16 05:44; Start 12/01/16 at 14:00 Famotidine (Pepcid) 20 mg BID IVP Last administered on 12/01/16 21:02; Start 12/01/16 at 10:00 Potassium Chloride (KCl Oral Soln) 20 meq 1X ONCE PEG Last administered on 10:05; Start 12/01/16 at 10:00; Stop 12/01/16 at 10:01; Status DC Vancomycin HCl (Vanco Per Pharmacy) 1 each PRN DAILY PRN MC SEE COMMENTS Last administered on 12/01/16 11:01; Start 12/01/16 at 10:15 Vancomycin HCl 1.5 gm/Sodium Chloride 500 ml @ 250 mls/hr Q12H IV Last administered on 12/01/16 22:11; Start 12/01/16 at 10:30 Vancomycin HCl 1 each 1X ONCE MC ; Start 12/02/16 at 22:00; Stop 12/02/16 at 22 :01 Piperacillin Sod/ Tazobactam Sod 4.5 gm/Sodium Chloride 100 ml @ 200 mls/hr Q6HRS IV Last administered on 12/02/16t 05:44; Start 12/01/16 at 12:00 Etomidate (Amidate) 20 mg STK-MED ONCE IV ; Start 11/30/16 at 12:00; Stop at 05:57; Status DC Active Scripts Active Hydrocodone-Apap 7.5-325 (Hydrocodone Bit/Acetaminophen) 1 Each Tablet 1 Tab PO PRN Q6HRS PRN 30 Days Levothyroxine Sodium 150 Mcg Tablet 1 Tab PO DAILY Bentyl (Dicyclomine Hcl) 10 Mg Capsule 20 Mg PO Q6HRS Reported Chantix (Varenicline Tartrate) 1 Mg Tablet 1 Mg PO BID Atorvastatin Calcium 20 Mg Tablet 40 Mg PO HS Vitamin D (Cholecalciferol (Vitamin D3)) 1,000 Unit Capsule 1,000 Unit PO DAILY Vitamin E 400 Unit Capsule 400 Unit PO DAILY Fish Oil ([place]-3 Fatty Acids) 500 Mg Capsule 500 Mg PO DAILY Magnesium Oxide 400 Mg Tablet 400 Mg PO QID Xanax (Alprazolam) 1 Mg Tablet 1 Mg PO QID Lasix (Furosemide) 40 Mg Tablet 40 Mg PO DAILY Aspirin 325 Mg Tablet 325 Mg PO DAILY Gabapentin 600 Mg Tablet 600 Mg PO TID Tizanidine Hcl 4 Mg Tablet 4 Mg PO QID Estradiol 1 Each Patch.tdwk 1 Each TD DAILY07 Omeprazole 20 Mg Tablet.dr 20 Mg PO DAILY07 Klor-Con (Potassium Chloride) 20 Meq Packet 20 Meq PO TID Proair Hfa Inhaler (Albuterol Sulfate) 8.5 Gm Hfa.aer.ad 8.5 Gm IH Q4HRS Advair 500-50 Diskus (Fluticasone/Salmeterol) 1 Each Disk.w.dev 1 Each IH BID Vitals/I & O Vital Sign - Last 24 Hours 12/01/16 12/01/16 12/01/16 12/01/16 08:00 09:00 10:00 10:01 Pulse 66 68 60 Resp 18 24 20 B/P (MAP) 125/72 (89) 116/74 (88) 100/56 (71) Pulse Ox 98 95 96 88 O2 Delivery Ventilator Ventilator Ventilator Ventilator 12/01/16 12/01/16 12/01/16 12/01/16 10:06 11:00 11:44 12:00 Temp 97.4 97.4 Pulse 58 59 Resp 20 18 18 B/P (MAP) 97/58 (71) 83/51 (62) Pulse Ox 98 97 97 O2 Delivery Ventilator Ventilator Ventilator 12/01/16 12/01/16 12/01/16 12/01/16 12:10 13:00 14:00 14:05 Pulse 60 56 Resp 20 18 B/P (MAP) 97/64 (75) 148/74 (98) Pulse Ox 96 99 93 O2 Delivery Mechanical Ventilator Ventilator Ventilator 12/01/16 12/01/16 12/01/16 12/01/16 15:00 15:07 15:37 15:48 Pulse 59 Resp 20 20 20 B/P (MAP) 114/68 (83) Pulse Ox 98 99 98 O2 Delivery Ventilator Ventilator Ventilator Mechanical Ventilator 12/01/16 12/01/16 12/01/16 12/01/16 15:49 16:00 17:00 18:00 Temp 98.4 98.4 Pulse 61 61 59 Resp 20 20 18 B/P (MAP) 102/62 (75) 104/64 (77) 127/72 (90) Pulse Ox 97 97 96 98 O2 Delivery Ventilator Ventilator Ventilator Ventilator 12/01/16 12/01/16 12/01/16 12/01/16 18:11 19:00 19:17 19:21 Temp 98.7 98.7 Pulse 56 Resp 16 20 B/P (MAP) 120/70 (87) Pulse Ox 97 97 99 99 O2 Delivery Ventilator Ventilator Ventilator O2 Flow Rate 15.0 12/01/16 12/01/16 12/01/16 12/01/16 20:00 20:00 21:09 22:00 Pulse 60 59 56 Resp 18 17 17 B/P (MAP) 132/74 (93) 91/69 (76) 119/66 (83) Pulse Ox 98 97 97 O2 Delivery Ventilator Mechanical Ventilator Ventilator Ventilator 12/01/16 12/01/16 12/02/16 12/02/16 22:33 23:00 00:00 00:00 Temp 98.9 98.9 Pulse 56 58 Resp 16 24 B/P (MAP) 133/76 (95) 137/73 (94) Pulse Ox 98 99 97 O2 Delivery Ventilator Ventilator Ventilator Mechanical Ventilator 9/1812/02/16 12/02/16 12/02/16 00:19 00:29 00:49 01:01 Pulse 57 Resp 18 B/P (MAP) 116/66 (83) Pulse Ox 98 92 92 O2 Delivery Ventilator Ventilator Ventilator Ventilator O2 Flow Rate 15.0 12/02/16 12/02/16 12/02/16 12/02/16 02:00 02:29 03:00 03:50 Pulse 58 58 Resp B/P (MAP) 114/67 (83) 107/65 (79) Pulse Ox 97 97 97 O2 Delivery Ventilator Ventilator Ventilator Mechanical Ventilator 12/02/16 12/02/16 12/02/16 12/02/16 04:00 05:08 05:10 06:00 Temp 98.7 98.7 Pulse 58 59 57 Resp 17 B/P (MAP) 107/67 (80) 106/65 (79) 110/67 (81) Pulse Ox 97 97 97 97 O2 Delivery Ventilator Ventilator Ventilator Ventilator NICOLAS HICKS MD Dec 02, 2016 08:02
[2016-12-02 08:08] LABS: HCO3 ABG 22 mmol/L (21-28); PCO2 ABG 32 mmHg (35-46); PH ABG 7.46 (7.35-7.45); PO2 ABG 71 mmHg (65-108); SAT O2 ABG 94 % (92-99)
[2016-12-02 08:09] LABS: FIO2 ABG 35
--- NOTE | 2016-12-02 08:52 | PDOC ---
Infectious Disease Note Subjective Subjective opens eyes on vent ROS ROS unable to do Vital Sign Vital Signs Vital Signs Date Time Temp Pulse Resp B/P (MAP) Pulse Ox O2 Delivery O2 Flow Rate FiO2 12/02/16 07:44 97 Ventilator 12/02/16 07:00 53 17 120/74 (89) 12/02/16 04:00 98.7 98.7 12/02/16 00:49 15.0 Physical Exam PHYSICAL EXAM GENERAL: NAD, Alert on vent HEENT: PERRL, OC/OP NECK: Supple, no JVD, no LN LUNGS: Clear HEART: S1S2, no gallop, no murmur ABD: Soft, NT, no organomegaly, no rebound EXT: No edema, no cyanosis [employer]OTH MEASURER: Alert, 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, no focal neurologic deficit SKIN: No rash IV: ok Labs Lab Laboratory Tests Test 12/01/16 09:58 12/01/16 12:00 12/01/16 12:10 12/01/16 16:25 Heparin Anti-Xa Act, Unfractionated 0.38 IU/mL (0.30-0.70) 0.27 IU/mL (0.30-0.70) O2 Saturation 93 % (92-99) Arterial Blood pH 7.44 (7.35-7.45) Arterial Blood pCO2 at Patient Temp 36 mmHg (35-46) Arterial Blood pO2 at Patient Temp 64 mmHg (65-108) Arterial Blood HCO3 24 mmol/L (21-28) Arterial Blood Base Excess 0 mmol/L (-3-3) FiO2 50 Nasal Screen MRSA (PCR) Negative (Negative) Test 12/01/16 23:30 12/02/16 06:20 12/02/16 08:00 Heparin Anti-Xa Act, Unfractionated 0.44 IU/mL (0.30-0.70) 0.33 IU/mL (0.30-0.70) White Blood Count 14.9 x10^3/uL (4.0-11.0) Red Blood Count 2.73 x10^6/uL (3.50-5.40) Hemoglobin 7.4 g/dL (12.0-15.5) Hematocrit 22.7 % (36.0-47.0) Mean Corpuscular Volume 83 fL (79-100) Mean Corpuscular Hemoglobin 27 pg (25-35) Mean Corpuscular Hemoglobin Concent 33 g/dL (31-37) Red Cell Distribution Width 15.4 % (11.5-14.5) Platelet Count 307 x10^3/uL (140-400) Sodium Level 140 mmol/L (136-145) Potassium Level 3.5 mmol/L (3.5-5.1) Chloride Level 107 mmol/L (98-107) Carbon Dioxide Level 25 mmol/L (21-32) Anion Gap 8 (6-14) Blood Urea Nitrogen 11 mg/dL (7-20) Creatinine 0.8 mg/dL (0.6-1.0) Estimated GFR (Cockcroft-Gault) 73.4 Glucose Level 108 mg/dL (70-99) Calcium Level 8.2 mg/dL (8.5-10.1) O2 Saturation 94 % (92-99) Arterial Blood pH 7.46 (7.35-7.45) Arterial Blood pCO2 at Patient Temp 32 mmHg (35-46) Arterial Blood pO2 at Patient Temp 71 mmHg (65-108) Arterial Blood HCO3 22 mmol/L (21-28) Arterial Blood Base Excess -1 mmol/L (-3-3) FiO2 35 Micro BC neg sputum pending Objective Assessment Fever Leukocytosis Aspiration/HCAP Respiratory failure S/P colostomy revision Plan Plan of Care triston andino check cultures supportive care BONNIE CANADA MD Dec 02, 2016 08:52
[2016-12-02] MEDS: GABAPENTIN 300 MG CAPSULE. PO SCH ×3 (08:54→21:43)
[2016-12-02] MEDS: VARENICLINE 0.5 MG TABLET. PO SCH ×2 (08:54→21:46)
[2016-12-02] MEDS: ASPIRIN 325 MG TABLET PO SCH (08:54)
[2016-12-02] MEDS: tiZANidine 4 MG TABLET. PO SCH ×4 (08:55→21:43)
[2016-12-02] MEDS: FAMOTIDINE 20 MG/2 ML VIAL IVP SCH ×2 (08:55→20:27)
[2016-12-02] MEDS: OMEGA-3 FATTY ACIDS/FISH OIL 1,000 MG CAPSULE. PO SCH (08:55)
[2016-12-02] MEDS: VITAMIN E 200 UNIT CAPSULE. PO SCH (08:55)
[2016-12-02] MEDS: CHOLECALCIFEROL (VITAMIN D3) 1,000 UNIT TABLET PO SCH (08:55)
--- NOTE | 2016-12-02 08:59 | RAD ---
Portable chest, 12/02/2016: History: Pneumonia Comparison is made to a study from 11/30/2016. An ET tube remains in place with its tip located 3 cm above the [place]. An NG tube extends into the stomach. The heart size and pulmonary vascularity are normal. There is moderate ongoing left lower lobe atelectasis/pneumonitis obscuring the hemidiaphragm. A small amount of left-sided pleural fluid cannot be excluded. No significant right lung infiltrate is seen. No new abnormality is detected. IMPRESSION: 1. The ET tube and NG tube remain in place in satisfactory positions. 2. Moderate unchanged left lower lobe atelectasis and/or pneumonitis.
[2016-12-02] MEDS: MAGNESIUM OXIDE 400 MG TABLET PO SCH ×4 (09:00→21:47)
--- NOTE | 2016-12-02 09:23 | PDOC ---
Objective: Objective: No GI concerns per RN. Vital Signs: Vital Signs Date Time Temp Pulse Resp B/P (MAP) Pulse Ox O2 Delivery O2 Flow Rate FiO2 12/02/16 09:12 93 Ventilator 12/02/16 07:00 53 17 120/74 (89) 12/02/16 04:00 98.7 98.7 12/02/16 00:49 15.0 Labs: Laboratory Tests Test 12/01/16 09:58 12/01/16 12:00 12/01/16 12:10 12/01/16 16:25 Heparin Anti-Xa Act, Unfractionated 0.38 IU/mL 0.27 IU/mL O2 Saturation 93 % Arterial Blood pH 7.44 Arterial Blood pCO2 at Patient Temp 36 mmHg Arterial Blood pO2 at Patient Temp 64 mmHg Arterial Blood HCO3 24 mmol/L Arterial Blood Base Excess 0 mmol/L FiO2 50 Nasal Screen MRSA (PCR) Negative Test 12/01/16 23:30 12/02/16 06:20 12/02/16 08:00 Heparin Anti-Xa Act, Unfractionated 0.44 IU/mL 0.33 IU/mL White Blood Count 14.9 x10^3/uL Red Blood Count 2.73 x10^6/uL Hemoglobin 7.4 g/dL Hematocrit 22.7 % Mean Corpuscular Volume 83 fL Mean Corpuscular Hemoglobin 27 pg Mean Corpuscular Hemoglobin Concent 33 g/dL Red Cell Distribution Width 15.4 % Platelet Count 307 x10^3/uL Sodium Level 140 mmol/L Potassium Level 3.5 mmol/L Chloride Level 107 mmol/L Carbon Dioxide Level 25 mmol/L Anion Gap 8 Blood Urea Nitrogen 11 mg/dL Creatinine 0.8 mg/dL Estimated GFR (Cockcroft-Gault) 73.4 Glucose Level 108 mg/dL Calcium Level 8.2 mg/dL O2 Saturation 94 % Arterial Blood pH 7.46 Arterial Blood pCO2 at Patient Temp 32 mmHg Arterial Blood pO2 at Patient Temp 71 mmHg Arterial Blood HCO3 22 mmol/L Arterial Blood Base Excess -1 mmol/L FiO2 35 Imaging: CXR 12/02/16 IMPRESSION: 1. The ET tube and NG tube remain in place in satisfactory positions. 2. Moderate unchanged left lower lobe atelectasis and/or pneumonitis. PE: GEN: intubated LUNGS: vent HEART: RRR ABD: incisions intact, ostomy w/ watery stool NEURO/PSYCH: sedated A/P: S/p hernia repair 11/28 Resp failure, pneumonia/COPD PE Anemia GERD - on IV H2 iza, several EGDs in past (no Cuello's, H. pylori, or celiac), apparently also esophageal dilation H/o multiple abd surgeries including colectomy, proctectomy -- Continue same per GI. VIJAY BRIONES Dec 02, 2016 09:23
--- NOTE | 2016-12-02 09:38 | CONS ---
DATE OF CONSULTATION: 12/01/2016 REQUESTING PHYSICIAN: Dr. Leon. REASON FOR CONSULTATION: Pneumonia, sepsis. HISTORY OF PRESENT ILLNESS: This is a 61-year-old female with multiple medical problems. The patient had parastomal hernia and ventral hernia with revision of the colostomy was done on . The patient was puking before surgery and post-surgery, then subsequently yesterday she developed 103 fever, shortness of breath, hypoxia, was brought in the ICU and intubated. The patient was found to have small PE as well as pneumonia, leukocytosis and fever. The patient has been started on vancomycin and Zosyn. Consult has been requested. The patient is alert, awake, able to communicate to some extent through, being intubated. No nausea, vomiting or diarrhea noted any more, fever has improved. PAST MEDICAL HISTORY: Positive for history of MRSA, history of C. diff, history of coronary artery disease with stenting, anxiety, depression, hypothyroidism, chronic back problems with chronic pain medication problem, fibromyalgia, COPD, IBS, urinary retention. PAST SURGICAL HISTORY: She has had hysterectomy, cholecystectomy, sinus surgery, total colectomy with an ileostomy, multiple ventral hernias and back surgery. ALLERGIES: Listed as allergic to DOXYCYCLINE. MEDICATIONS: Current medications reviewed. The patient is on vancomycin and Zosyn. REVIEW OF SYSTEMS: As per HPI, all other systems reviewed and all were negative. PHYSICAL EXAMINATION: GENERAL: Alert, oriented female who is sedated on ventilator, not in distress. VITAL SIGNS: Vitals are stable with a T-max 103. HEENT: NAD. The patient is orally intubated. NECK: Supple, no JVP. No lymphadenopathy. LUNGS: Clear. CARDIOVASCULAR: S1, S2 regular. ABDOMEN: Benign. EXTREMITIES: No edema, cyanosis. SKIN: Unremarkable. NEUROLOGIC: Intact. LABORATORY DATA: White count is 23.3. BUN and creatinine is normal. Urinalysis unremarkable. Chest x-ray and chest CT showed PE and pneumonia. IMPRESSION: 1. Aspiration/healthcare facility-associated pneumonia. 2. Leukocytosis and fever. 3. Status post ventral and parastomal hernia repair with revision of ileostomy. 4. Respiratory failure. RECOMMENDATIONS: Would continue with vancomycin and Zosyn for the time being, supportive care, check the cultures of the sputum and blood, and we will continue to follow. Thank you very much, Dr. Leon, for giving me the opportunity to participate in this patient's care. BONNIE CANADA MD DR: TAMMY/joshua JOB#: [id number] / [id number]
--- NOTE | 2016-12-02 10:38 | PDOC ---
PULMONARY PROGRESS NOTES Subjective remains intubated/sedated off levophed Vitals Vital Signs Date Time Temp Pulse Resp B/P (MAP) Pulse Ox O2 Delivery O2 Flow Rate FiO2 12/02/16 09:12 93 Ventilator 12/02/16 07:00 53 17 120/74 (89) 12/02/16 04:00 98.7 98.7 12/02/16 00:49 15.0 Lungs: Other (decrease bs) Cardiovascular: S1 Abdomen: Soft, Other (colostomy bag wit hno blood) Extremities: No Edema Skin: Warm Labs Laboratory Tests Test 11/30/16 19:20 11/30/16 19:45 11/30/16 19:50 11/30/16 21:45 White Blood Count 15.0 x10^3/uL (4.0-11.0) Red Blood Count 3.24 x10^6/uL (3.50-5.40) Hemoglobin 8.9 g/dL (12.0-15.5) Hematocrit 27.3 % (36.0-47.0) Mean Corpuscular Volume 84 fL (79-100) Mean Corpuscular Hemoglobin 27 pg (25-35) Mean Corpuscular Hemoglobin Concent 32 g/dL (31-37) Red Cell Distribution Width 14.9 % (11.5-14.5) Platelet Count 321 x10^3/uL (140-400) Neutrophils (%) (Auto) 84 % (31-73) Lymphocytes (%) (Auto) 9 % (24-48) Monocytes (%) (Auto) 6 % (0-9) Eosinophils (%) (Auto) 1 % (0-3) Basophils (%) (Auto) 0 % (0-3) Neutrophils # (Auto) 12.7 x10^3uL (1.8-7.7) Lymphocytes # (Auto) 1.3 x10^3/uL (1.0-4.8) Monocytes # (Auto) 0.9 x10^3/uL (0.0-1.1) Eosinophils # (Auto) 0.1 x10^3/uL (0.0-0.7) Basophils # (Auto) 0.1 x10^3/uL (0.0-0.2) Lactic Acid Level 0.7 mmol/L (0.4-2.0) Sodium Level 132 mmol/L (136-145) Potassium Level 3.9 mmol/L (3.5-5.1) Chloride Level 97 mmol/L (98-107) Carbon Dioxide Level 26 mmol/L (21-32) Anion Gap 9 (6-14) Blood Urea Nitrogen 9 mg/dL (7-20) Creatinine 0.9 mg/dL (0.6-1.0) Estimated GFR (Cockcroft-Gault) 64.1 Glucose Level 105 mg/dL (70-99) Calcium Level 8.3 mg/dL (8.5-10.1) O2 Saturation 94 % (92-99) 99 % (92-99) Arterial Blood pH 7.43 (7.35-7.45) 7.39 (7.35-7.45) Arterial Blood pH (Temp corrected) 7.40 Arterial Blood pCO2 at Patient Temp 38 mmHg (35-46) 38 mmHg (35-46) Arterial Blood pCO2 (Temp correct) 42 mmHg Arterial Blood pO2 at Patient Temp 73 mmHg (65-108) 275 mmHg (65-108) Arterial Blood pO2 (Temp corrected) 86 mmHg Arterial Blood HCO3 25 mmol/L (21-28) 23 mmol/L (21-28) Arterial Blood Base Excess 0 mmol/L (-3-3) -2 mmol/L (-3-3) FiO2 50 100 Test 12/01/16 02:00 12/01/16 03:12 12/01/16 08:00 12/01/16 09:58 White Blood Count 23.3 x10^3/uL (4.0-11.0) Red Blood Count 3.25 x10^6/uL (3.50-5.40) Hemoglobin 9.0 g/dL (12.0-15.5) Hematocrit 27.1 % (36.0-47.0) Mean Corpuscular Volume 84 fL (79-100) Mean Corpuscular Hemoglobin 28 pg (25-35) Mean Corpuscular Hemoglobin Concent 33 g/dL (31-37) Red Cell Distribution Width 15.5 % (11.5-14.5) Platelet Count 384 x10^3/uL (140-400) Neutrophils (%) (Auto) 92 % (31-73) Lymphocytes (%) (Auto) 5 % (24-48) Monocytes (%) (Auto) 3 % (0-9) Eosinophils (%) (Auto) 0 % (0-3) Basophils (%) (Auto) 0 % (0-3) Neutrophils # (Auto) 21.4 x10^3uL (1.8-7.7) Lymphocytes # (Auto) 1.1 x10^3/uL (1.0-4.8) Monocytes # (Auto) 0.7 x10^3/uL (0.0-1.1) Eosinophils # (Auto) 0.0 x10^3/uL (0.0-0.7) Basophils # (Auto) 0.0 x10^3/uL (0.0-0.2) Segmented Neutrophils % 81 % (35-66) Band Neutrophils % 14 % (0-9) Lymphocytes % 2 % (24-48) Monocytes % 3 % (0-10) Platelet Estimate Increased (ADEQUATE) Anisocytosis Present Sodium Level 139 mmol/L (136-145) Potassium Level 3.6 mmol/L (3.5-5.1) Chloride Level 103 mmol/L (98-107) Carbon Dioxide Level 24 mmol/L (21-32) Anion Gap 12 (6-14) Blood Urea Nitrogen 7 mg/dL (7-20) Creatinine 0.8 mg/dL (0.6-1.0) Estimated GFR (Cockcroft-Gault) 73.4 BUN/Creatinine Ratio 9 (6-20) Glucose Level 142 mg/dL (70-99) Calcium Level 8.5 mg/dL (8.5-10.1) Magnesium Level 1.9 mg/dL (1.8-2.4) Total Bilirubin 0.5 mg/dL (0.2-1.0) Aspartate Amino Transf (AST/SGOT) 16 U/L (15-37) Alanine Aminotransferase (ALT/SGPT) 12 U/L (14-59) Alkaline Phosphatase 134 U/L (46-116) Total Protein 6.1 g/dL (6.4-8.2) Albumin 2.3 g/dL (3.4-5.0) Albumin/Globulin Ratio 0.6 (1.0-1.7) Heparin Anti-Xa Act, Unfractionated 1.03 IU/mL (0.30-0.70) 0.38 IU/mL (0.30-0.70) O2 Saturation 78 % (92-99) Arterial Blood pH 7.47 (7.35-7.45) Arterial Blood pCO2 at Patient Temp 33 mmHg (35-46) Arterial Blood pO2 at Patient Temp < 42 mmHg (65-108) Arterial Blood HCO3 23 mmol/L (21-28) Arterial Blood Base Excess 0 mmol/L (-3-3) Test 12/01/16 12:00 12/01/16 12:10 12/01/16 16:25 12/01/16 23:30 O2 Saturation 93 % (92-99) Arterial Blood pH 7.44 (7.35-7.45) Arterial Blood pCO2 at Patient Temp 36 mmHg (35-46) Arterial Blood pO2 at Patient Temp 64 mmHg (65-108) Arterial Blood HCO3 24 mmol/L (21-28) Arterial Blood Base Excess 0 mmol/L (-3-3) FiO2 50 Nasal Screen MRSA (PCR) Negative (Negative) Heparin Anti-Xa Act, Unfractionated 0.27 IU/mL (0.30-0.70) 0.44 IU/mL (0.30-0.70) Test 12/02/16 06:20 12/02/16 08:00 White Blood Count 14.9 x10^3/uL (4.0-11.0) Red Blood Count 2.73 x10^6/uL (3.50-5.40) Hemoglobin 7.4 g/dL (12.0-15.5) Hematocrit 22.7 % (36.0-47.0) Mean Corpuscular Volume 83 fL (79-100) Mean Corpuscular Hemoglobin 27 pg (25-35) Mean Corpuscular Hemoglobin Concent 33 g/dL (31-37) Red Cell Distribution Width 15.4 % (11.5-14.5) Platelet Count 307 x10^3/uL (140-400) Heparin Anti-Xa Act, Unfractionated 0.33 IU/mL (0.30-0.70) Sodium Level 140 mmol/L (136-145) Potassium Level 3.5 mmol/L (3.5-5.1) Chloride Level 107 mmol/L (98-107) Carbon Dioxide Level 25 mmol/L (21-32) Anion Gap 8 (6-14) Blood Urea Nitrogen 11 mg/dL (7-20) Creatinine 0.8 mg/dL (0.6-1.0) Estimated GFR (Cockcroft-Gault) 73.4 Glucose Level 108 mg/dL (70-99) Calcium Level 8.2 mg/dL (8.5-10.1) O2 Saturation 94 % (92-99) Arterial Blood pH 7.46 (7.35-7.45) Arterial Blood pCO2 at Patient Temp 32 mmHg (35-46) Arterial Blood pO2 at Patient Temp 71 mmHg (65-108) Arterial Blood HCO3 22 mmol/L (21-28) Arterial Blood Base Excess -1 mmol/L (-3-3) FiO2 35 Laboratory Tests Test 12/01/16 12:00 12/01/16 12:10 12/01/16 16:25 12/01/16 23:30 O2 Saturation 93 % (92-99) Arterial Blood pH 7.44 (7.35-7.45) Arterial Blood pCO2 at Patient Temp 36 mmHg (35-46) Arterial Blood pO2 at Patient Temp 64 mmHg (65-108) Arterial Blood HCO3 24 mmol/L (21-28) Arterial Blood Base Excess 0 mmol/L (-3-3) FiO2 50 Nasal Screen MRSA (PCR) Negative (Negative) Heparin Anti-Xa Act, Unfractionated 0.27 IU/mL (0.30-0.70) 0.44 IU/mL (0.30-0.70) Test 12/02/16 06:20 12/02/16 08:00 White Blood Count 14.9 x10^3/uL (4.0-11.0) Red Blood Count 2.73 x10^6/uL (3.50-5.40) Hemoglobin 7.4 g/dL (12.0-15.5) Hematocrit 22.7 % (36.0-47.0) Mean Corpuscular Volume 83 fL (79-100) Mean Corpuscular Hemoglobin 27 pg (25-35) Mean Corpuscular Hemoglobin Concent 33 g/dL (31-37) Red Cell Distribution Width 15.4 % (11.5-14.5) Platelet Count 307 x10^3/uL (140-400) Heparin Anti-Xa Act, Unfractionated 0.33 IU/mL (0.30-0.70) Sodium Level 140 mmol/L (136-145) Potassium Level 3.5 mmol/L (3.5-5.1) Chloride Level 107 mmol/L (98-107) Carbon Dioxide Level 25 mmol/L (21-32) Anion Gap 8 (6-14) Blood Urea Nitrogen 11 mg/dL (7-20) Creatinine 0.8 mg/dL (0.6-1.0) Estimated GFR (Cockcroft-Gault) 73.4 Glucose Level 108 mg/dL (70-99) Calcium Level 8.2 mg/dL (8.5-10.1) O2 Saturation 94 % (92-99) Arterial Blood pH 7.46 (7.35-7.45) Arterial Blood pCO2 at Patient Temp 32 mmHg (35-46) Arterial Blood pO2 at Patient Temp 71 mmHg (65-108) Arterial Blood HCO3 22 mmol/L (21-28) Arterial Blood Base Excess -1 mmol/L (-3-3) FiO2 35 Medications Active Scripts Medications Dose Route/Sig Max Daily Dose Days Date Category Hydrocodone-Apap 7.5-325 (Hydrocodone Bit/Acetaminophen) 1 Each Tablet 1 Tab PO PRN Q6HRS PRN 30 11/27/16 Rx Levothyroxine Sodium 150 Mcg Tablet 1 Tab PO DAILY 11/27/16 Rx Chantix (Varenicline Tartrate) 1 Mg Tablet 1 Mg PO BID 11/26/16 Reported Bentyl (Dicyclomine Hcl) 10 Mg Capsule 20 Mg PO Q6HRS 11/24/14 Rx Atorvastatin Calcium 20 Mg Tablet 40 Mg PO HS 04/26/13 Reported Vitamin D (Cholecalciferol (Vitamin D3)) 1,000 Unit Capsule 1,000 Unit PO DAILY 04/26/13 Reported Vitamin E 400 Unit Capsule 400 Unit PO DAILY 04/26/13 Reported Fish Oil (Newton-3 Fatty Acids) 500 Mg Capsule 500 Mg PO DAILY 04/26/13 Reported Magnesium Oxide 400 Mg Tablet 400 Mg PO QID 04/26/13 Reported Xanax (Alprazolam) 1 Mg Tablet 1 Mg PO QID 04/26/13 Reported Lasix (Furosemide) 40 Mg Tablet 40 Mg PO DAILY 04/26/13 Reported Aspirin 325 Mg Tablet 325 Mg PO DAILY 04/26/13 Reported Gabapentin 600 Mg Tablet 600 Mg PO TID 04/26/13 Reported Tizanidine Hcl 4 Mg Tablet 4 Mg PO QID 04/26/13 Reported Estradiol 1 Each Patch.tdwk 1 Each TD DAILY07 04/26/13 Reported Omeprazole 20 Mg Tablet.dr 20 Mg PO DAILY07 04/26/13 Reported Klor-Con (Potassium Chloride) 20 Meq Packet 20 Meq PO TID 04/26/13 Reported Proair Hfa Inhaler (Albuterol Sulfate) 8.5 Gm Hfa.aer.ad 8.5 Gm IH Q4HRS 04/26/13 Reported Advair 500-50 Diskus (Fluticasone/Salmeterol) 1 Each Disk.w.dev 1 Each IH BID 04/26/13 Reported Impression . 1. Acute respiratory failure, multifactorial in etiology including bacterial pneumonia (hcap, aspiration), septic shock, underlying chronic obstructive pulmonary disease with acute exacerbation, 2. Abnormal chest x-ray and CT of the chest with mild GG infiltrates and LLL consolidation 3. septic shock, off pressor 4. Pulmonary embolism. (small RUL? clinical significance) 5. Status post exploratory laparotomy and revision of ileostomy. 6. Leukocytosis. 7. Coronary artery disease. 8. Obesity. 9. Anemia, no obvious blood loss, ?source Plan . 1. AC mode, ABG adequate. Titrate FiO2 to keep O2 saturation 94%. 2. CPAP trial later today 3. ct abdomen/pelvis to r/o source of blood loss. 4. Continue Pulmicort./nebs 5. Solu-Cortef 6. Continue Protonix. 7. Continue heparin drip. Montor Hb closely. If Hb continues to drop, we may dc drip( PE is not so clinically significant) 8. Elevate head of bed. 9. start TPN 10. The findings and recommendations were discussed with LIANNE cct 30 min MARQUIS COVARRUBIAS MD Dec 02, 2016 10:38
--- NOTE | 2016-12-02 10:53 | PDOC ---
SURGICAL PROGRESS NOTE Subjective vent d/w nurse, hgb drop--blood transfusion and CT planned today TPN to start Vital Signs Vital Signs Date Time Temp Pulse Resp B/P (MAP) Pulse Ox O2 Delivery O2 Flow Rate FiO2 12/02/16 10:00 68 23 131/73 (92) 96 Ventilator 12/02/16 08:00 98.5 98.5 12/02/16 00:49 15.0 I&O Intake and Output 12/03/16 07:00 Output Total 250 ml Balance -250 ml Output Urine Total 250 ml General: No acute distress, Other (on vent) Abdomen: Soft, Other (stoma pink, stool brown, incision c/d/i, no erythema ) Labs Laboratory Tests Test 11/30/16 19:20 11/30/16 19:45 11/30/16 19:50 11/30/16 21:45 White Blood Count 15.0 x10^3/uL (4.0-11.0) Red Blood Count 3.24 x10^6/uL (3.50-5.40) Hemoglobin 8.9 g/dL (12.0-15.5) Hematocrit 27.3 % (36.0-47.0) Mean Corpuscular Volume 84 fL (79-100) Mean Corpuscular Hemoglobin 27 pg (25-35) Mean Corpuscular Hemoglobin Concent 32 g/dL (31-37) Red Cell Distribution Width 14.9 % (11.5-14.5) Platelet Count 321 x10^3/uL (140-400) Neutrophils (%) (Auto) 84 % (31-73) Lymphocytes (%) (Auto) 9 % (24-48) Monocytes (%) (Auto) 6 % (0-9) Eosinophils (%) (Auto) 1 % (0-3) Basophils (%) (Auto) 0 % (0-3) Neutrophils # (Auto) 12.7 x10^3uL (1.8-7.7) Lymphocytes # (Auto) 1.3 x10^3/uL (1.0-4.8) Monocytes # (Auto) 0.9 x10^3/uL (0.0-1.1) Eosinophils # (Auto) 0.1 x10^3/uL (0.0-0.7) Basophils # (Auto) 0.1 x10^3/uL (0.0-0.2) Lactic Acid Level 0.7 mmol/L (0.4-2.0) Sodium Level 132 mmol/L (136-145) Potassium Level 3.9 mmol/L (3.5-5.1) Chloride Level 97 mmol/L (98-107) Carbon Dioxide Level 26 mmol/L (21-32) Anion Gap 9 (6-14) Blood Urea Nitrogen 9 mg/dL (7-20) Creatinine 0.9 mg/dL (0.6-1.0) Estimated GFR (Cockcroft-Gault) 64.1 Glucose Level 105 mg/dL (70-99) Calcium Level 8.3 mg/dL (8.5-10.1) O2 Saturation 94 % (92-99) 99 % (92-99) Arterial Blood pH 7.43 (7.35-7.45) 7.39 (7.35-7.45) Arterial Blood pH (Temp corrected) 7.40 Arterial Blood pCO2 at Patient Temp 38 mmHg (35-46) 38 mmHg (35-46) Arterial Blood pCO2 (Temp correct) 42 mmHg Arterial Blood pO2 at Patient Temp 73 mmHg (65-108) 275 mmHg (65-108) Arterial Blood pO2 (Temp corrected) 86 mmHg Arterial Blood HCO3 25 mmol/L (21-28) 23 mmol/L (21-28) Arterial Blood Base Excess 0 mmol/L (-3-3) -2 mmol/L (-3-3) FiO2 50 100 Test 12/01/16 02:00 12/01/16 03:12 12/01/16 08:00 12/01/16 09:58 White Blood Count 23.3 x10^3/uL (4.0-11.0) Red Blood Count 3.25 x10^6/uL (3.50-5.40) Hemoglobin 9.0 g/dL (12.0-15.5) Hematocrit 27.1 % (36.0-47.0) Mean Corpuscular Volume 84 fL (79-100) Mean Corpuscular Hemoglobin 28 pg (25-35) Mean Corpuscular Hemoglobin Concent 33 g/dL (31-37) Red Cell Distribution Width 15.5 % (11.5-14.5) Platelet Count 384 x10^3/uL (140-400) Neutrophils (%) (Auto) 92 % (31-73) Lymphocytes (%) (Auto) 5 % (24-48) Monocytes (%) (Auto) 3 % (0-9) Eosinophils (%) (Auto) 0 % (0-3) Basophils (%) (Auto) 0 % (0-3) Neutrophils # (Auto) 21.4 x10^3uL (1.8-7.7) Lymphocytes # (Auto) 1.1 x10^3/uL (1.0-4.8) Monocytes # (Auto) 0.7 x10^3/uL (0.0-1.1) Eosinophils # (Auto) 0.0 x10^3/uL (0.0-0.7) Basophils # (Auto) 0.0 x10^3/uL (0.0-0.2) Segmented Neutrophils % 81 % (35-66) Band Neutrophils % 14 % (0-9) Lymphocytes % 2 % (24-48) Monocytes % 3 % (0-10) Platelet Estimate Increased (ADEQUATE) Anisocytosis Present Sodium Level 139 mmol/L (136-145) Potassium Level 3.6 mmol/L (3.5-5.1) Chloride Level 103 mmol/L (98-107) Carbon Dioxide Level 24 mmol/L (21-32) Anion Gap 12 (6-14) Blood Urea Nitrogen 7 mg/dL (7-20) Creatinine 0.8 mg/dL (0.6-1.0) Estimated GFR (Cockcroft-Gault) 73.4 BUN/Creatinine Ratio 9 (6-20) Glucose Level 142 mg/dL (70-99) Calcium Level 8.5 mg/dL (8.5-10.1) Magnesium Level 1.9 mg/dL (1.8-2.4) Total Bilirubin 0.5 mg/dL (0.2-1.0) Aspartate Amino Transf (AST/SGOT) 16 U/L (15-37) Alanine Aminotransferase (ALT/SGPT) 12 U/L (14-59) Alkaline Phosphatase 134 U/L (46-116) Total Protein 6.1 g/dL (6.4-8.2) Albumin 2.3 g/dL (3.4-5.0) Albumin/Globulin Ratio 0.6 (1.0-1.7) Heparin Anti-Xa Act, Unfractionated 1.03 IU/mL (0.30-0.70) 0.38 IU/mL (0.30-0.70) O2 Saturation 78 % (92-99) Arterial Blood pH 7.47 (7.35-7.45) Arterial Blood pCO2 at Patient Temp 33 mmHg (35-46) Arterial Blood pO2 at Patient Temp < 42 mmHg (65-108) Arterial Blood HCO3 23 mmol/L (21-28) Arterial Blood Base Excess 0 mmol/L (-3-3) Test 12/01/16 12:00 12/01/16 12:10 12/01/16 16:25 12/01/16 23:30 O2 Saturation 93 % (92-99) Arterial Blood pH 7.44 (7.35-7.45) Arterial Blood pCO2 at Patient Temp 36 mmHg (35-46) Arterial Blood pO2 at Patient Temp 64 mmHg (65-108) Arterial Blood HCO3 24 mmol/L (21-28) Arterial Blood Base Excess 0 mmol/L (-3-3) FiO2 50 Nasal Screen MRSA (PCR) Negative (Negative) Heparin Anti-Xa Act, Unfractionated 0.27 IU/mL (0.30-0.70) 0.44 IU/mL (0.30-0.70) Test 12/02/16 06:20 12/02/16 08:00 White Blood Count 14.9 x10^3/uL (4.0-11.0) Red Blood Count 2.73 x10^6/uL (3.50-5.40) Hemoglobin 7.4 g/dL (12.0-15.5) Hematocrit 22.7 % (36.0-47.0) Mean Corpuscular Volume 83 fL (79-100) Mean Corpuscular Hemoglobin 27 pg (25-35) Mean Corpuscular Hemoglobin Concent 33 g/dL (31-37) Red Cell Distribution Width 15.4 % (11.5-14.5) Platelet Count 307 x10^3/uL (140-400) Heparin Anti-Xa Act, Unfractionated 0.33 IU/mL (0.30-0.70) Sodium Level 140 mmol/L (136-145) Potassium Level 3.5 mmol/L (3.5-5.1) Chloride Level 107 mmol/L (98-107) Carbon Dioxide Level 25 mmol/L (21-32) Anion Gap 8 (6-14) Blood Urea Nitrogen 11 mg/dL (7-20) Creatinine 0.8 mg/dL (0.6-1.0) Estimated GFR (Cockcroft-Gault) 73.4 Glucose Level 108 mg/dL (70-99) Calcium Level 8.2 mg/dL (8.5-10.1) O2 Saturation 94 % (92-99) Arterial Blood pH 7.46 (7.35-7.45) Arterial Blood pCO2 at Patient Temp 32 mmHg (35-46) Arterial Blood pO2 at Patient Temp 71 mmHg (65-108) Arterial Blood HCO3 22 mmol/L (21-28) Arterial Blood Base Excess -1 mmol/L (-3-3) FiO2 35 Laboratory Tests Test 12/01/16 12:00 12/01/16 12:10 12/01/16 16:25 12/01/16 23:30 O2 Saturation 93 % (92-99) Arterial Blood pH 7.44 (7.35-7.45) Arterial Blood pCO2 at Patient Temp 36 mmHg (35-46) Arterial Blood pO2 at Patient Temp 64 mmHg (65-108) Arterial Blood HCO3 24 mmol/L (21-28) Arterial Blood Base Excess 0 mmol/L (-3-3) FiO2 50 Nasal Screen MRSA (PCR) Negative (Negative) Heparin Anti-Xa Act, Unfractionated 0.27 IU/mL (0.30-0.70) 0.44 IU/mL (0.30-0.70) Test 12/02/16 06:20 12/02/16 08:00 White Blood Count 14.9 x10^3/uL (4.0-11.0) Red Blood Count 2.73 x10^6/uL (3.50-5.40) Hemoglobin 7.4 g/dL (12.0-15.5) Hematocrit 22.7 % (36.0-47.0) Mean Corpuscular Volume 83 fL (79-100) Mean Corpuscular Hemoglobin 27 pg (25-35) Mean Corpuscular Hemoglobin Concent 33 g/dL (31-37) Red Cell Distribution Width 15.4 % (11.5-14.5) Platelet Count 307 x10^3/uL (140-400) Heparin Anti-Xa Act, Unfractionated 0.33 IU/mL (0.30-0.70) Sodium Level 140 mmol/L (136-145) Potassium Level 3.5 mmol/L (3.5-5.1) Chloride Level 107 mmol/L (98-107) Carbon Dioxide Level 25 mmol/L (21-32) Anion Gap 8 (6-14) Blood Urea Nitrogen 11 mg/dL (7-20) Creatinine 0.8 mg/dL (0.6-1.0) Estimated GFR (Cockcroft-Gault) 73.4 Glucose Level 108 mg/dL (70-99) Calcium Level 8.2 mg/dL (8.5-10.1) O2 Saturation 94 % (92-99) Arterial Blood pH 7.46 (7.35-7.45) Arterial Blood pCO2 at Patient Temp 32 mmHg (35-46) Arterial Blood pO2 at Patient Temp 71 mmHg (65-108) Arterial Blood HCO3 22 mmol/L (21-28) Arterial Blood Base Excess -1 mmol/L (-3-3) FiO2 35 Problem List Problems Medical Problems: (1) Abdominal pain Status: Acute Assessment/Plan s/p xlap CT, blood today TPN 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
[2016-12-02] MEDS: FUROSEMIDE 40 MG TABLET. PO SCH (11:45)
[2016-12-02] MEDS: VANCOMYCIN 1.5 GM in IV NORMAL SALINE 500ML BAG 500 ML IV SCH ×2 (11:46→23:20)
--- NOTE | 2016-12-02 12:58 | RAD ---
Indication anemia. Assess for potential blood loss. Axial images through the abdomen and pelvis were obtained. Note is made of a previous examination 6 days earlier. No IV or gastrointestinal contrast was administered. There has been interval operative intervention. Densities are noted in the subcutaneous tissues of the abdominal wall likely reflecting drains. There is mild diffuse soft tissue swelling seen in the lower abdomen and pelvis suggesting a systemic process such as anasarca. There is a low-density mass in the left ventral abdominal wall measuring approximately 6.5 x 1.5 cm probably reflecting a small hematoma or postop seroma. Ileostomy on the right is noted representing a new finding compared to the previous exam. There is new volume loss at the lung bases left greater than right compatible with atelectasis or pneumonia. There is likely a minute amount of left pleural fluid. The liver and spleen appear unremarkable. Nasogastric tube is noted in the stomach. There is some stranding associated with the abdominal mesentery which is likely a function of recent operative intervention. No pancreatic adrenal or renal anomalies are seen. There is no evidence of retroperitoneal hemorrhage. There is probably a tiny amount of fluid in the dependent portion of the pelvis. IMPRESSION: Soft tissue swelling suggesting a systemic process such as anasarca. Volume loss at the lung bases left greater than right compatible with atelectasis or pneumonia. There is likely a tiny left pleural effusion. Slight mesenteric stranding likely a function of recent operative intervention. Small amount of free fluid in the dependent portion of the pelvis No definite evidence of hemorrhage in the abdomen or pelvis Fluid collection in the left ventral abdominal wall likely reflecting a small hematoma or seroma. PQRS Compliance Statement: One or more of the following individualized dose reduction techniques were utilized for this examination: 1. Automated exposure control 2. Adjustment of the mA and/or kV according to patient size 3. Use of iterative reconstruction technique
[2016-12-02] MEDS ORDERED: TPN PER PHARMACY MC PRN (14:00)
[2016-12-02] MEDS ORDERED: MIDAZOLAM PREMIX 100 ML IV PRN (15:15)
--- NOTE | 2016-12-02 15:16 | PATHOLOGY ---
PATHOLOGY REPORT * * * * * * * * FINAL DIAGNOSIS: Segments of small intestine with focal attached skin and fibroadipose tissue, stoma hernia repair: - Ileostomy stoma with focal superficial mucosal erosion and scarring of mucocutaneous junction. (JPM:db; 12/02/2016) REPORT ELECTRONICALLY SIGNED BY: James Awan M.D. DATE/TIME: 12/02/2016 15:15 * * * * * * * * GROSS PATHOLOGY: The specimen is received in formalin, labeled "Savannah Roach and stoma", are two portions, one 4.7 x 2.8 x 2.5 cm yellow lobulated adipose tissue with a 2.0 x 0.3 cm cleaning skin stoma with cleaning-pink mucosa. The second is a portion of bowel measuring 5.5 cm in length and up to 3.0 cm in width with an open end surrounded by cleaning-pink mucosa and at the opposite end is a staple line. Sectioning reveals unremarkable cleaning-pink mucosal folds. Assignment Officer section in A1 (SWS; 11/28/2016) INITIAL CPT CODE(S): A; 29099 Professional services performed by [facility] [place] [address] Technical services performed by [facility] at [address] [place] [address], [address], [place] [address]. SPECIMEN(S) RECEIVED: A.Stoma CLINICAL HISTORY: Abdominal pain, nausea, vomiting, incisional hernia, stoma hernia PATIENT: SAVANNAH ROACH /AGE: 7 1955 (Age: 61) PATIENT #: [id number] ALT CASE #: SPECIMEN COLLECTION DATE: 11/28/2016 SPECIMEN RECEIVED DATE: 11/28/2016 [facility] - [id number] [place] [address] - PHONE: [phone] * * * END OF REPORT * * *
[2016-12-02] MEDS: HYDROcodone/APAP 7.5/325MG 1 TAB TABLET PO PRN (16:03)
[2016-12-02] MEDS: AMINO AC 3%/ELECTROLYTE/GLYCER 1,000 ML IV SCH (18:24)
[2016-12-02 18:58] LABS: HEMATOCRIT 31.6 % (36.0-47.0); HEMOGLOBIN 10.4 g/dL (12.0-15.5); RED BLOOD COUNT 3.74 x10^6/uL (3.50-5.40); RED CELL DISTRIBUTION WIDTH 15.4 % (11.5-14.5)
[2016-12-02 19:37] LABS: HCO3 ABG 24 mmol/L (21-28); PCO2 ABG 30 mmHg (35-46); PH ABG 7.51 (7.35-7.45); PO2 ABG 88 mmHg (65-108); SAT O2 ABG 97 % (92-99)
[2016-12-02 19:38] LABS: FIO2 ABG 35
[2016-12-02] MEDS ORDERED: SODIUM BICARB ADULT 8.4% 50 MEQ/50 ML DISP.SYRIN. IV ONE (19:45)
[2016-12-02] MEDS: ATORVASTATIN CALCIUM 20 MG TABLET PO SCH (21:43)
[2016-12-02] MEDS ORDERED: TOTAL PARENTERAL NUTRITION IV SCH ×9 (22:00)
[2016-12-02] MEDS ORDERED: AMINO ACIDS IV SCH ×9 (22:00)
[2016-12-02] MEDS ORDERED: DEXTROSE 70% IV SCH ×9 (22:00)
[2016-12-02] MEDS ORDERED: [UNRECOGNIZED DRUG - OTHER] IV SCH ×9 (22:00)
[2016-12-03] VITALS (19 sets, daily range): BP systolic 121–188; BP diastolic 56–86
[2016-12-03] MEDS: VANCOMYCIN PER PHARMACY MC PRN ×2 (00:22→09:35)
[2016-12-03] MEDS: PIPERACILLIN/TAZOBACTAM 4.5 GM in IV NORMAL SALINE 100ML 100 ML IV SCH ×4 (01:27→18:05)
[2016-12-03] MEDS: HEPARIN 25,000UTS/500ML PREMIX 500 ML IV PRN (01:28)
[2016-12-03] MEDS: fentaNYL PF VIAL 100 MCG/2 ML VIAL IV PRN ×5 (04:03→21:37)
[2016-12-03] MEDS: AMINO AC 3%/ELECTROLYTE/GLYCER 1,000 ML IV SCH ×2 (04:03→16:49)
[2016-12-03] MEDS: HYDROCORTISONE SOD SUCC/PF 100 MG/2 ML VIAL. IV SCH (05:52)
[2016-12-03] MEDS: LEVOTHYROXINE 150 MCG TABLET PO SCH (05:52)
[2016-12-03 05:53] LABS: HEMATOCRIT 29.9 % (36.0-47.0); RED BLOOD COUNT 3.6 x10^6/uL (3.50-5.40); WHITE BLOOD COUNT 13.9 x10^3/uL (4.0-11.0)
[2016-12-03 06:11] LABS: CREATININE 0.9 mg/dL (0.6-1.0); GFR 64.1
[2016-12-03 06:16] LABS: POTASSIUM 2.5 mmol/L (3.5-5.1)
[2016-12-03 06:27] LABS: MAGNESIUM 1.9 mg/dL (1.8-2.4); PHOSPHORUS 5.8 mg/dL (2.6-4.7)
[2016-12-03] MEDS ORDERED: DEXTROSE 50% 25 GM / 50ML DISP.SYRIN. IV PRN (06:30)
[2016-12-03] MEDS ORDERED: POTASSIUM CHLORIDE 10MEQ 100 ML IV PRN ×2 (06:30)
[2016-12-03] MEDS: POTASSIUM CHLORIDE 10MEQ 100 ML IV PRN ×10 (06:44→18:04)
[2016-12-03] MEDS: PANTOPRAZOLE 40 MG TABLET.DR. PO SCH (07:30)
[2016-12-03] MEDS: INSULIN ASPART 300 UNITS/3 ML INSULN.PEN SQ SCH ×2 (08:03→17:59)
[2016-12-03] MEDS: ALBUTEROL SULFATE 2.5 MG/3 ML NEBU. NEB SCH ×4 (08:16→19:49)
[2016-12-03] MEDS: BUDESONIDE 0.5 MG/2 ML NEBU. NEB SCH ×2 (08:16→19:49)
--- NOTE | 2016-12-03 08:20 | PDOC ---
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 ROS ROS GEN: Denies fevers, chills, sweats HEENT: Denies blurred vision, sore throat CV: Denies chest pain RESP: Denies shortness of air, cough GI: Denies n/v/d NEURO: Denies confusion, dizziness MSK: Denies weakness, joint pain/swelling Vital Sign Vital Signs Vital Signs Date Time Temp Pulse Resp B/P (MAP) Pulse Ox O2 Delivery O2 Flow Rate FiO2 12/03/16 06:00 50 21 177/76 (109) 97 Nasal Cannula 4.0 12/03/16 04:00 98.4 98.4 Physical Exam PHYSICAL EXAM GENERAL: NAD, Alert HEENT: PERRL, OC/OP NECK: Supple, no JVD, no LN LUNGS: Clear HEART: S1S2, no gallop, no murmur ABD: Soft, NT, no organomegaly, no rebound,, incision good EXT: No edema, no cyanosis 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, 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, no focal neurologic deficit SKIN: No rash IV: ok Labs Lab Laboratory Tests Test 12/02/16 15:30 12/02/16 18:50 12/02/16 19:32 12/02/16 22:15 Troponin I Quantitative < 0.017 ng/mL (0.000-0.055) White Blood Count 15.0 x10^3/uL (4.0-11.0) Red Blood Count 3.74 x10^6/uL (3.50-5.40) Hemoglobin 10.4 g/dL (12.0-15.5) Hematocrit 31.6 % (36.0-47.0) Mean Corpuscular Volume 85 fL (79-100) Mean Corpuscular Hemoglobin 28 pg (25-35) Mean Corpuscular Hemoglobin Concent 33 g/dL (31-37) Red Cell Distribution Width 15.4 % (11.5-14.5) Platelet Count 341 x10^3/uL (140-400) O2 Saturation 97 % (92-99) Arterial Blood pH 7.51 (7.35-7.45) Arterial Blood pCO2 at Patient Temp 30 mmHg (35-46) Arterial Blood pO2 at Patient Temp 88 mmHg (65-108) Arterial Blood HCO3 24 mmol/L (21-28) Arterial Blood Base Excess 1 mmol/L (-3-3) FiO2 35 Vancomycin Level Trough 18.7 mcg/mL (10.0-20.0) Vancomycin Last Dose Date Vancomycin Last Dose Time Test 12/03/16 05:20 White Blood Count 13.9 x10^3/uL (4.0-11.0) Red Blood Count 3.60 x10^6/uL (3.50-5.40) Hemoglobin 10.0 g/dL (12.0-15.5) Hematocrit 29.9 % (36.0-47.0) Mean Corpuscular Volume 83 fL (79-100) Mean Corpuscular Hemoglobin 28 pg (25-35) Mean Corpuscular Hemoglobin Concent 33 g/dL (31-37) Red Cell Distribution Width 15.0 % (11.5-14.5) Platelet Count 323 x10^3/uL (140-400) Sodium Level 139 mmol/L (136-145) Potassium Level 2.5 mmol/L (3.5-5.1) Chloride Level 97 mmol/L (98-107) Carbon Dioxide Level 28 mmol/L (21-32) Anion Gap 14 (6-14) Blood Urea Nitrogen 13 mg/dL (7-20) Creatinine 0.9 mg/dL (0.6-1.0) Estimated GFR (Cockcroft-Gault) 64.1 Glucose Level 332 mg/dL (70-99) Calcium Level 8.0 mg/dL (8.5-10.1) Phosphorus Level 5.8 mg/dL (2.6-4.7) Magnesium Level 1.9 mg/dL (1.8-2.4) Triglycerides Level 195 mg/dL (0-150) Thyroid Stimulating Hormone (TSH) 0.094 uIU/mL (0.358-3.74) Micro BC neg sputum Staph aureus Objective Assessment Fever Leukocytosis Aspiration/HCAP Respiratory failure S/P colostomy revision Plan Plan of Care vanc , zosyn , cont , soon to scale down check cultures supportive care d/w BONNIE Donahue MD Dec 03, 2016 08:19
[2016-12-03] MEDS: VITAMIN E 200 UNIT CAPSULE. PO SCH (08:38)
[2016-12-03] MEDS: MAGNESIUM OXIDE 400 MG TABLET PO SCH ×4 (08:38→21:39)
[2016-12-03] MEDS: tiZANidine 4 MG TABLET. PO SCH ×4 (08:39→21:39)
[2016-12-03] MEDS: FUROSEMIDE 40 MG TABLET. PO SCH (08:39)
[2016-12-03] MEDS: ASPIRIN 325 MG TABLET PO SCH (08:41)
[2016-12-03] MEDS: VARENICLINE 0.5 MG TABLET. PO SCH ×2 (08:41→21:40)
[2016-12-03] MEDS: OMEGA-3 FATTY ACIDS/FISH OIL 1,000 MG CAPSULE. PO SCH (08:41)
[2016-12-03] MEDS: ALPRAZolam 1 MG TABLET PO PRN ×2 (08:41→16:50)
[2016-12-03] MEDS: GABAPENTIN 300 MG CAPSULE. PO SCH ×3 (08:41→21:39)
[2016-12-03] MEDS: CHOLECALCIFEROL (VITAMIN D3) 1,000 UNIT TABLET PO SCH (08:42)
[2016-12-03] MEDS: FAMOTIDINE 20 MG/2 ML VIAL IVP SCH (08:42)
[2016-12-03] MEDS: HYDROcodone/APAP 7.5/325MG 1 TAB TABLET PO PRN ×2 (08:51→16:59)
--- NOTE | 2016-12-03 08:52 | PDOC ---
PROGRESS NOTES Subjective Subjective Patient c/o productive cough, anxiety, pain and hunger. Objective Objective Vital Signs Date Time Temp Pulse Resp B/P (MAP) Pulse Ox O2 Delivery O2 Flow Rate FiO2 12/03/16 06:00 50 21 177/76 (109) 97 Nasal Cannula 4.0 12/03/16 04:00 98.4 98.4 Physical Exam Abdomen: Normal bowel sounds, Soft, Other (liquid stool in ostomy bag) Heart: Regular rate, No murmurs Extremities: No edema General: Alert, Oriented X3, No acute distress (anxious but clear-headed) Lungs: Other (coarse BS throughout) Assessment Assessment Problems Medical Problems: (1) Abdominal pain Status: Acute Plan Plan of Care 1. Acute respiratory failure with pneumonia and COPD - stable off vent. Continue abx, nebs, steroids. 2. PE's - stable, change to Lovenox as frequent lab draws on Heparin are agitating patient. 3. anemia - Hgb improved after transfusion and stable from yesterday. CT abdomen and pelvis without evidence of active bleeding. 4. bradycardia - has persisted for over 24 hours. Initially thought to possibly be due to sedation but she has been off this since yesterday. Patient denies any CP. Troponin x1 was WNL. Patient does have history of CAD and sees a business services representative at [facility]. Will consult Cardiology to help with further evaluation. BP not low, actually elevated at times which may be due to her agitation and anxiety. 5. hypokalemia - replacing IV. 6. POD #5 hernia repair - ostomy functioning well, will try resuming po, full liquid diet ordered, should be able to d/c PPN soon if tolerating diet. 7. chronic anxiety - continue po Xanax and Chantix. IV Ativan available. 8. chronic musculoskeletal pain - resume po pain meds, minimize IV narcotics. Comment Review of Relevant I have reviewed the following items chris (where applicable) has been applied. Labs Laboratory Tests Test 12/01/16 09:58 12/01/16 12:00 12/01/16 12:10 12/01/16 16:25 Heparin Anti-Xa Act, Unfractionated 0.38 IU/mL (0.30-0.70) 0.27 IU/mL (0.30-0.70) O2 Saturation 93 % (92-99) Arterial Blood pH 7.44 (7.35-7.45) Arterial Blood pCO2 at Patient Temp 36 mmHg (35-46) Arterial Blood pO2 at Patient Temp 64 mmHg (65-108) Arterial Blood HCO3 24 mmol/L (21-28) Arterial Blood Base Excess 0 mmol/L (-3-3) FiO2 50 Nasal Screen MRSA (PCR) Negative (Negative) Test 12/01/16 23:30 12/02/16 06:20 12/02/16 08:00 12/02/16 15:30 Heparin Anti-Xa Act, Unfractionated 0.44 IU/mL (0.30-0.70) 0.33 IU/mL (0.30-0.70) White Blood Count 14.9 x10^3/uL (4.0-11.0) Red Blood Count 2.73 x10^6/uL (3.50-5.40) Hemoglobin 7.4 g/dL (12.0-15.5) Hematocrit 22.7 % (36.0-47.0) Mean Corpuscular Volume 83 fL (79-100) Mean Corpuscular Hemoglobin 27 pg (25-35) Mean Corpuscular Hemoglobin Concent 33 g/dL (31-37) Red Cell Distribution Width 15.4 % (11.5-14.5) Platelet Count 307 x10^3/uL (140-400) Sodium Level 140 mmol/L (136-145) Potassium Level 3.5 mmol/L (3.5-5.1) Chloride Level 107 mmol/L (98-107) Carbon Dioxide Level 25 mmol/L (21-32) Anion Gap 8 (6-14) Blood Urea Nitrogen 11 mg/dL (7-20) Creatinine 0.8 mg/dL (0.6-1.0) Estimated GFR (Cockcroft-Gault) 73.4 Glucose Level 108 mg/dL (70-99) Calcium Level 8.2 mg/dL (8.5-10.1) O2 Saturation 94 % (92-99) Arterial Blood pH 7.46 (7.35-7.45) Arterial Blood pCO2 at Patient Temp 32 mmHg (35-46) Arterial Blood pO2 at Patient Temp 71 mmHg (65-108) Arterial Blood HCO3 22 mmol/L (21-28) Arterial Blood Base Excess -1 mmol/L (-3-3) FiO2 35 Troponin I Quantitative < 0.017 ng/mL (0.000-0.055) Test 12/02/16 18:50 12/02/16 19:32 12/02/16 22:15 12/03/16 05:20 White Blood Count 15.0 x10^3/uL (4.0-11.0) 13.9 x10^3/uL (4.0-11.0) Red Blood Count 3.74 x10^6/uL (3.50-5.40) 3.60 x10^6/uL (3.50-5.40) Hemoglobin 10.4 g/dL (12.0-15.5) 10.0 g/dL (12.0-15.5) Hematocrit 31.6 % (36.0-47.0) 29.9 % (36.0-47.0) Mean Corpuscular Volume 85 fL (79-100) 83 fL (79-100) Mean Corpuscular Hemoglobin 28 pg (25-35) 28 pg (25-35) Mean Corpuscular Hemoglobin Concent 33 g/dL (31-37) 33 g/dL (31-37) Red Cell Distribution Width 15.4 % (11.5-14.5) 15.0 % (11.5-14.5) Platelet Count 341 x10^3/uL (140-400) 323 x10^3/uL (140-400) O2 Saturation 97 % (92-99) Arterial Blood pH 7.51 (7.35-7.45) Arterial Blood pCO2 at Patient Temp 30 mmHg (35-46) Arterial Blood pO2 at Patient Temp 88 mmHg (65-108) Arterial Blood HCO3 24 mmol/L (21-28) Arterial Blood Base Excess 1 mmol/L (-3-3) FiO2 35 Vancomycin Level Trough 18.7 mcg/mL (10.0-20.0) Vancomycin Last Dose Date Vancomycin Last Dose Time Sodium Level 139 mmol/L (136-145) Potassium Level 2.5 mmol/L (3.5-5.1) Chloride Level 97 mmol/L (98-107) Carbon Dioxide Level 28 mmol/L (21-32) Anion Gap 14 (6-14) Blood Urea Nitrogen 13 mg/dL (7-20) Creatinine 0.9 mg/dL (0.6-1.0) Estimated GFR (Cockcroft-Gault) 64.1 Glucose Level 332 mg/dL (70-99) Calcium Level 8.0 mg/dL (8.5-10.1) Phosphorus Level 5.8 mg/dL (2.6-4.7) Magnesium Level 1.9 mg/dL (1.8-2.4) Triglycerides Level 195 mg/dL (0-150) Thyroid Stimulating Hormone (TSH) 0.094 uIU/mL (0.358-3.74) Laboratory Tests Test 12/02/16 15:30 12/02/16 18:50 12/02/16 19:32 12/02/16 22:15 Troponin I Quantitative < 0.017 ng/mL (0.000-0.055) White Blood Count 15.0 x10^3/uL (4.0-11.0) Red Blood Count 3.74 x10^6/uL (3.50-5.40) Hemoglobin 10.4 g/dL (12.0-15.5) Hematocrit 31.6 % (36.0-47.0) Mean Corpuscular Volume 85 fL (79-100) Mean Corpuscular Hemoglobin 28 pg (25-35) Mean Corpuscular Hemoglobin Concent 33 g/dL (31-37) Red Cell Distribution Width 15.4 % (11.5-14.5) Platelet Count 341 x10^3/uL (140-400) O2 Saturation 97 % (92-99) Arterial Blood pH 7.51 (7.35-7.45) Arterial Blood pCO2 at Patient Temp 30 mmHg (35-46) Arterial Blood pO2 at Patient Temp 88 mmHg (65-108) Arterial Blood HCO3 24 mmol/L (21-28) Arterial Blood Base Excess 1 mmol/L (-3-3) FiO2 35 Vancomycin Level Trough 18.7 mcg/mL (10.0-20.0) Vancomycin Last Dose Date Vancomycin Last Dose Time Test 12/03/16 05:20 White Blood Count 13.9 x10^3/uL (4.0-11.0) Red Blood Count 3.60 x10^6/uL (3.50-5.40) Hemoglobin 10.0 g/dL (12.0-15.5) Hematocrit 29.9 % (36.0-47.0) Mean Corpuscular Volume 83 fL (79-100) Mean Corpuscular Hemoglobin 28 pg (25-35) Mean Corpuscular Hemoglobin Concent 33 g/dL (31-37) Red Cell Distribution Width 15.0 % (11.5-14.5) Platelet Count 323 x10^3/uL (140-400) Sodium Level 139 mmol/L (136-145) Potassium Level 2.5 mmol/L (3.5-5.1) Chloride Level 97 mmol/L (98-107) Carbon Dioxide Level 28 mmol/L (21-32) Anion Gap 14 (6-14) Blood Urea Nitrogen 13 mg/dL (7-20) Creatinine 0.9 mg/dL (0.6-1.0) Estimated GFR (Cockcroft-Gault) 64.1 Glucose Level 332 mg/dL (70-99) Calcium Level 8.0 mg/dL (8.5-10.1) Phosphorus Level 5.8 mg/dL (2.6-4.7) Magnesium Level 1.9 mg/dL (1.8-2.4) Triglycerides Level 195 mg/dL (0-150) Thyroid Stimulating Hormone (TSH) 0.094 uIU/mL (0.358-3.74) Microbiology 11/30/16 Blood Culture - Preliminary, Resulted NO GROWTH AFTER 2 DAYS 12/01/16 Sputum Culture - Preliminary, Resulted 12/01/16 Sputum Result 1 - Preliminary, Resulted 12/01/16 Sputum Result 2 - Preliminary, Resulted Medications Current Medications Fentanyl Citrate (Fentanyl 2ml Vial) 50 mcg PRN Q15MIN PRN IV PAIN GREATER THAN 3/10 Last administered on 11/26/16 19:41; Start 11/26/16 at 18:00; Stop at 17:59; Status DC Sodium Chloride 1,000 ml @ 1,000 mls/hr Q1H IV Last administered on 11/26/16 18:20; Start 11/26/16 at 18:00; Stop 11/26/16 at 18:59; Status DC Ondansetron HCl (Zofran) 4 mg 1X ONCE IV Last administered on 11/26/16 18:19 ; Start 11/26/16 at 18:00; Stop 11/26/16 at 18:01; Status DC Iohexol (Omnipaque 300 Mg/ml) 60 ml 1X ONCE IV Last administered on 11/26/16 18:39; Start 11/26/16 at 18:15; Stop 11/26/16 at 18:16; Status DC Info (Do NOT chart on this entry -- for MONITORING) 1 each PRN DAILY PRN MC SEE COMMENTS; Start 11/26/16 at 18:15; Stop 11/28/16 at 18:14; Status DC Ondansetron HCl (Zofran) 4 mg PRN Q8HRS PRN IV NAUSEA/VOMITING; Start 11/26/16 at 19:45; Stop 11/27/16 at 19:44; Status DC Fentanyl Citrate (Fentanyl 2ml Vial) 50 mcg PRN Q1HR PRN IV PAIN Last administered on 11/27/16 16:15; Start 11/26/16 at 19:45; Stop 11/27/16 at 19:44 ; Status DC Sodium Chloride 1,000 ml @ 100 mls/hr Q10H IV Last administered on 11/27/16 16:17; Start 11/26/16 at 20:00; Stop 11/27/16 at 19:59; Status DC Acetaminophen (Tylenol) 650 mg PRN Q4HRS PRN PO FEVER; Start 11/26/16 at 19:45 ; Stop 11/27/16 at 19:44; Status DC Gabapentin (Neurontin) 600 mg 1X ONCE PO Last administered on 11/26/16 22:14 ; Start 11/26/16 at 21:45; Stop 11/26/16 at 21:46; Status DC Varenicline (Chantix) 1 mg 1X ONCE PO Last administered on 11/26/16 22:15; Start 11/26/16 at 21:45; Stop 11/26/16 at 21:46; Status DC Atorvastatin Calcium (Lipitor) 40 mg 1X ONCE PO Last administered on 22:15; Start 11/26/16 at 21:45; Stop 11/26/16 at 21:46; Status DC Alprazolam (Xanax) 1 mg 1X ONCE PO Last administered on 11/26/16 22:15; Start 11/26/16 at 21:45; Stop 11/26/16 at 21:46; Status DC Tizanidine HCl (Zanaflex) 4 mg 1X ONCE PO Last administered on 11/26/16 22:15 ; Start 11/26/16 at 21:45; Stop 11/26/16 at 21:46; Status DC Potassium Chloride (Klor-Con) 20 meq 1X ONCE PO Last administered on 22:14; Start 11/26/16 at 21:45; Stop 11/26/16 at 21:46; Status DC Alprazolam (Xanax) 1 mg PRN QID PRN PO ANXIETY / AGITATION Last administered on 12/01/16 15:07; Start 11/27/16 at 08:45 Aspirin (Nader Aspirin) 325 mg DAILY PO Last administered on 12/02/16 08:54; Start 11/27/16 at 09:00 Atorvastatin Calcium (Lipitor) 40 mg HS PO Last administered on 12/02/16 21:43 ; Start 11/27/16 at 21:00 Dicyclomine HCl (Bentyl) 20 mg PRN Q6HRS PRN PO GI PAIN Last administered on 20:33; Start 11/27/16 at 08:45 Furosemide (Lasix) 40 mg DAILY PO Last administered on 12/02/16 11:45; Start 11/27/16 at 09:00 Acetaminophen/ Hydrocodone Bitart (Lortab 7.5/325) 1 tab PRN Q6HRS PRN PO PAIN Last administered on 11/30/16 11:14; Start 11/27/16 at 08:45; Stop 11/30/16 at 15:03; Status DC Levothyroxine Sodium (Synthroid) 150 mcg DAILY07 PO Last administered on 05:52; Start 11/27/16 at 10:30 Magnesium Oxide (Magnesium Oxide) 400 mg QID PO Last administered on 12/02/16 21:47; Start 11/27/16 at 09:00 Tizanidine HCl (Zanaflex) 4 mg QID PO Last administered on 12/02/16 21:43; Start 11/27/16 at 09:00 Non-Formulary Medication 8.5 gm Q4HRS IH ; Start 11/27/16 at 12:00; Stop at 12:00; Status DC Vitamin D (Vitamin D3) 1,000 unit DAILY PO Last administered on 12/02/16 08:55 ; Start 11/27/16 at 09:00 Non-Formulary Medication 1 each BID IH ; Start 11/27/16 at 09:00; Stop 11/27/16 at 09:38; Status DC Gabapentin (Neurontin) 600 mg TID PO Last administered on 12/02/16 21:43; Start 11/27/16 at 09:00 Fish Oil (Fish Oil) 1,000 mg DAILY PO Last administered on 12/02/16 08:55; Start 11/27/16 at 09:00 Pantoprazole Sodium (Protonix) 40 mg DAILYAC PO Last administered on 11/30/16 05:55; Start 11/27/16 at 11:30 Potassium Chloride (Klor-Con) 20 meq TIDWMEALS PO Last administered on 18:45; Start 11/27/16 at 09:00; Stop 12/01/16 at 09:57; Status DC Vitamin E 400 unit DAILY PO Last administered on 12/02/16 08:55; Start at 09:00 Varenicline (Chantix) 1 mg BID PO Last administered on 12/02/16 21:46; Start 11/27/16 at 09:00 Albuterol Sulfate (Ventolin Neb Soln) 2.5 mg Q4HRS NEB Last administered on 23:02; Start 11/27/16 at 12:00; Stop 11/29/16 at 23:05; Status DC Budesonide (Pulmicort) 0.5 mg RTBID NEB Last administered on 12/02/16 19:40; Start 11/27/16 at 10:00 Iohexol (Omnipaque 350 Mg/ml) 300 ml 1X ONCE PO Last administered on 13:30; Start 11/27/16 at 12:45; Stop 11/27/16 at 12:48; Status DC Iohexol (Omnipaque 350 Mg/ml) 100 ml STK-MED ONCE .ROUTE ; Start 11/27/16 at 13: 04; Stop 11/27/16 at 13:05; Status DC Iohexol (Omnipaque 300 Mg/ml) 300 ml 1X ONCE PO ; Start 11/27/16 at 13:30; Stop 11/27/16 at 13:31; Status DC Info (Do NOT chart on this entry -- for MONITORING) 1 each PRN DAILY PRN MC SEE COMMENTS; Start 11/27/16 at 13:30; Stop 11/29/16 at 13:29; Status DC Iohexol (Omnipaque 350 Mg/ml) 100 ml STK-MED ONCE .ROUTE ; Start 11/27/16 at 13: 24; Stop 11/27/16 at 13:25; Status DC Ondansetron HCl (Zofran) 4 mg PRN Q6HRS PRN IV NAUSEA/VOMITING; Start 11/28/16 at 07:00; Stop 11/28/16 at 07:00; Status DC Fentanyl Citrate (Fentanyl 2ml Vial) 25 mcg PRN Q5MIN PRN IV MILD PAIN; Start 11/28/16 at 07:00; Stop 11/28/16 at 18:00; Status DC Fentanyl Citrate (Fentanyl 2ml Vial) 50 mcg PRN Q5MIN PRN IV MODERATE PAIN Last administered on 11/28/16 13:50; Start 11/28/16 at 07:00; Stop 11/28/16 at 18:00; Status DC Morphine Sulfate 1 mg PRN Q10MIN PRN IV SEVERE PAIN; Start 11/28/16 at 07:00; Stop 11/28/16 at 18:00; Status DC Ringer's Solution 1,000 ml @ 30 mls/hr Q24H IV Last administered on 11/28/16 07:47; Start 11/28/16 at 07:00; Stop 11/28/16 at 18:59; Status DC Lidocaine HCl 2 ml PRN 1X PRN ID PRIOR TO IV START; Start 11/28/16 at 07:00; Stop 11/28/16 at 18:00; Status DC Hydromorphone HCl (Dilaudid) 0.5 mg PRN Q10MIN PRN IV SEV PAIN, Second choice Last administered on 11/28/16 14:11; Start 11/28/16 at 07:00; Stop 11/28/16 at 18:00; Status DC Prochlorperazine Edisylate (Compazine) 5 mg PACU PRN PRN IV NAUSEA, MRX1 Last administered on 11/28/16 13:42; Start 11/28/16 at 07:00; Stop 11/28/16 at 18:00 ; Status DC Cefoxitin Sodium 2 gm/Sodium Chloride 100 ml @ 200 mls/hr 1X PREOP IV ; Start 11/27/16 at 19:15; Stop 11/27/16 at 19:15; Status DC Cefoxitin Sodium 2 gm/Sodium Chloride 100 ml @ 200 mls/hr 1X PREOP ONCE IV Last administered on 11/28/16 09:15; Start 11/28/16 at 06:00; Stop 11/28/16 at 06:29; Status DC Fentanyl Citrate (Fentanyl 2ml Vial) 50 mcg PRN Q2HR PRN IV SEVERE PAIN Last administered on 12/02/16 19:58; Start 11/27/16 at 23:00; Stop 12/02/16 at 20:17 ; Status DC Fentanyl Citrate (Fentanyl 2ml Vial) 25 mcg PRN Q2HR PRN IV MODERATE PAIN Last administered on 12/01/16 15:07; Start 11/27/16 at 23:00 Ondansetron HCl (Zofran) 4 mg PRN Q6HRS PRN IV NAUSEA/VOMITING; Start 11/28/16 at 03:45; Status Cancel Ondansetron HCl (Zofran) 4 mg PRN Q6HRS PRN IV NAUSEA/VOMITING Last administered on 11/29/16 12:25; Start 11/28/16 at 04:00; Stop 11/29/16 at 14:02 ; Status DC Ondansetron HCl (Zofran) 4 mg PRN Q6HRS PRN IV NAUSEA/VOMITING; Start 11/28/16 at 07:00; Stop 11/28/16 at 19:00; Status DC Bupivacaine HCl/ Epinephrine Bitart (Marcaine-Epi 0.5%-[id number]) 50 ml STK-MED ONCE .ROUTE ; Start 11/28/16 at 07:52; Stop 11/28/16 at 07:53; Status DC Fentanyl Citrate (Fentanyl 2ml Vial) 100 mcg STK-MED ONCE .ROUTE ; Start at 08:39; Stop 11/28/16 at 08:40; Status DC Rocuronium Scott (Zemuron) 100 mg STK-MED ONCE .ROUTE ; Start 11/28/16 at 08: 39; Stop 11/28/16 at 08:40; Status DC Cefoxitin Sodium 100 ml @ As Directed STK-MED ONCE IV ; Start 11/28/16 at 08:39 ; Stop 11/28/16 at 08:40; Status DC Dexamethasone Sodium Phosphate (Decadron) 20 mg STK-MED ONCE .ROUTE ; Start at 08:39; Stop 11/28/16 at 08:40; Status DC Ondansetron HCl (Zofran) 4 mg STK-MED ONCE .ROUTE ; Start 11/28/16 at 08:39; Stop 11/28/16 at 08:40; Status DC Propofol 20 ml @ As Directed STK-MED ONCE IV ; Start 11/28/16 at 08:39; Stop at 08:40; Status DC Lidocaine HCl (Lidocaine Pf 2% Vial) 5 ml STK-MED ONCE .ROUTE ; Start 11/28/16 at 08:39; Stop 11/28/16 at 08:40; Status DC Midazolam HCl (Versed) 2 mg STK-MED ONCE .ROUTE ; Start 11/28/16 at 09:00; Stop 11/28/16 at 09:01; Status DC Fentanyl Citrate (Fentanyl 5ml Vial) 250 mcg STK-MED ONCE .ROUTE ; Start at 09:28; Stop 11/28/16 at 09:29; Status DC Sevoflurane (Ultane) 90 ml STK-MED ONCE IH ; Start 11/28/16 at 09:59; Stop 11/28 at 10:00; Status DC Glycopyrrolate (Robinul) 1 mg STK-MED ONCE .ROUTE ; Start 11/28/16 at 12:18; Stop 11/28/16 at 12:19; Status DC Neostigmine Methylsulfate (Bloxiverz) 10 mg STK-MED ONCE .ROUTE ; Start at 12:18; Stop 11/28/16 at 12:19; Status DC Fentanyl Citrate (Fentanyl 2ml Vial) 100 mcg STK-MED ONCE .ROUTE ; Start at 13:16; Stop 11/28/16 at 13:17; Status DC Hydromorphone HCl (Dilaudid) 2 mg STK-MED ONCE .ROUTE ; Start 11/28/16 at 13:27 ; Stop 11/28/16 at 13:28; Status DC Enoxaparin Sodium (Lovenox 40mg Syringe) 40 mg Q24H SQ Last administered on 08:26; Start 11/29/16 at 08:00; Stop 11/30/16 at 21:30; Status DC Sodium Chloride (Normal Saline Flush) 3 ml QSHIFT PRN IV AFTER MEDS AND BLOOD DRAWS; Start 11/28/16 at 13:30 Ringer's Solution 1,000 ml @ 100 mls/hr Q10H IV ; Start 11/28/16 at 13:26; Stop 11/30/16 at 10:52; Status DC Naloxone HCl (Narcan) 0.4 mg PRN Q2MIN PRN IV SEE INSTRUCTIONS; Start 11/28/16 at 13:30 Sodium Chloride 1,000 ml @ 25 mls/hr Q24H IV Last administered on 11/30/16 05 :55; Start 11/28/16 at 13:26; Stop 11/30/16 at 10:52; Status DC Hydromorphone HCl 30 ml @ 0 mls/hr CONT PRN PRN IV PROTOCOL Last administered on 11/29/16 18:35; Start 11/28/16 at 13:30; Stop 11/30/16 at 10:52; Status DC Ondansetron HCl (Zofran) 4 mg PRN Q6HRS PRN IV NAUESA, 1ST CHOICE; Start at 13:30 Fentanyl Citrate (Fentanyl 2ml Vial) 100 mcg STK-MED ONCE .ROUTE ; Start at 13:36; Stop 11/28/16 at 13:37; Status DC Prochlorperazine Edisylate (Compazine) 10 mg STK-MED ONCE .ROUTE ; Start at 13:37; Stop 11/28/16 at 13:38; Status DC Ibuprofen (Motrin) 200 mg PRN Q6HRS PRN PO INFLAMMATION Last administered on 05:57; Start 11/29/16 at 08:30 Albuterol Sulfate (Ventolin Neb Soln) 2.5 mg RTQID NEB Last administered on 16:33; Start 11/30/16 at 08:00; Stop 11/30/16 at 17:18; Status DC Acetaminophen/ Hydrocodone Bitart (Lortab 7.5/325) 1 tab PRN Q6HRS PRN PO PAIN Last administered on 12/02/16 16:03; Start 11/30/16 at 15:15 Acetaminophen/ Hydrocodone Bitart (Lortab 7.5/325) 2 tab PRN Q6HRS PRN PO PAIN ; Start 11/30/16 at 15:15 Albuterol Sulfate (Ventolin Neb Soln) 2.5 mg RTQID NEB ; Start 11/30/16 at 20:00 ; Stop 11/30/16 at 20:00; Status DC Albuterol Sulfate (Ventolin Neb Soln) 2.5 mg PRN QID PRN NEB SHORTNESS OF BREATH Last administered on 11/30/16 17:35; Start 11/30/16 at 17:20 Piperacillin Sod/ Tazobactam Sod 3.375 gm/Sodium Chloride 50 ml @ 100 mls/hr Q6HRS IV Last administered on 12/01/16 05:41; Start 11/30/16 at 18:00; Stop at 11:07; Status DC Acetaminophen (Acetaminophen Supp) 650 mg PRN Q6HRS PRN WI MILD PAIN / TEMP; Start 11/30/16 at 17:30 Iohexol (Omnipaque 300 Mg/ml) 75 ml 1X ONCE IV Last administered on 11/30/16 17:46; Start 11/30/16 at 17:45; Stop 11/30/16 at 17:46; Status DC Acetaminophen (Tylenol) 650 mg PRN Q6HRS PRN PO FEVER > 101 Last administered on 11/30/16 18:44; Start 11/30/16 at 17:30 Info (Do NOT chart on this entry -- for MONITORING) 1 each PRN DAILY PRN MC SEE COMMENTS; Start 11/30/16 at 17:45; Stop 12/02/16 at 17:44; Status DC Vancomycin HCl 1 gm/Sodium Chloride 250 ml @ 250 mls/hr 1X STAT IV ; Start at 18:19; Stop 11/30/16 at 19:18; Status UNV Budesonide (Pulmicort) 0.5 mg RTBID NEB ; Start 11/30/16 at 20:00; Stop at 20:56; Status DC Vancomycin HCl 1 gm/Sodium Chloride 250 ml @ 250 mls/hr 1X ONCE IV Last administered on 11/30/16 20:36; Start 11/30/16 at 18:45; Stop 11/30/16 at 19:44 ; Status DC Norepinephrine Bitartrate 250 ml @ As Directed STK-MED ONCE IV ; Start at 19:52; Stop 11/30/16 at 19:53; Status DC Rocuronium Scott (Zemuron) 50 mg STK-MED ONCE .ROUTE ; Start 11/30/16 at 20:00 ; Stop 11/30/16 at 20:01; Status DC Propofol 100 ml @ As Directed STK-MED ONCE IV ; Start 11/30/16 at 20:20; Stop 11/30/16 at 20:21; Status DC Hydrocortisone Sodium Succinate (Solu-CORTEF) 50 mg Q6HRS IV Last administered on 12/01/16 05:42; Start 11/30/16 at 20:15; Stop 12/01/16 at 08:11; Status DC Norepinephrine Bitartrate 250 ml @ 0 mls/hr CONT PRN IV SEE I/O RECORD Last administered on 11/30/16 20:38; Start 11/30/16 at 20:15 Sodium Chloride 1,000 ml @ 1,000 mls/hr 1X ONCE IV Last administered on 20:40; Start 11/30/16 at 20:15; Stop 11/30/16 at 21:14; Status DC Sodium Chloride 1,000 ml @ 1,000 mls/hr 1X ONCE IV Last administered on 20:37; Start 11/30/16 at 20:15; Stop 11/30/16 at 21:14; Status DC Sodium Chloride 1,000 ml @ 1,000 mls/hr 1X ONCE IV Last administered on 20:36; Start 11/30/16 at 20:15; Stop 11/30/16 at 21:14; Status DC Propofol 100 ml @ 0 mls/hr CONT PRN IV SEE I/O RECORD Last administered on 12/02 15:57; Start 11/30/16 at 20:15 Albuterol Sulfate (Ventolin Neb Soln) 2.5 mg RTQID NEB Last administered on 19:40; Start 12/01/16 at 08:00 Heparin Sodium (Porcine) (Heparin Sodium) 7,750 unit 1X ONCE IV Last administered on 11/30/16 21:55; Start 11/30/16 at 22:00; Stop 11/30/16 at 22:01 ; Status DC Heparin Sodium/ Dextrose 500 ml @ 0 mls/hr CONT PRN IV SEE I/O RECORD Last administered on 12/03/16 01:28; Start 11/30/16 at 21:30 Heparin Sodium (Porcine) (Heparin Sodium) 2,900 unit PRN Q6HRS PRN IV FOR UFH LEVEL LESS THAN 0.2; Start 11/30/16 at 21:30 Heparin Sodium (Porcine) (Heparin Sodium) 1,450 unit PRN Q6HRS PRN IV FOR UFH LEVEL 0.2 - 0.29 Last administered on 12/01/16 17:29; Start 11/30/16 at 21:30 Rocuronium Scott (Zemuron) 50 mg 1X ONCE IV Last administered on 11/30/16 20:05; Start 12/01/16 at 04:45; Stop 12/01/16 at 04:46; Status DC Hydrocortisone Sodium Succinate (Solu-CORTEF) 50 mg Q8HRS IV Last administered on 12/03/16 05:52; Start 12/01/16 at 14:00 Famotidine (Pepcid) 20 mg BID IVP Last administered on 12/02/16 20:27; Start 12/01/16 at 10:00 Potassium Chloride (KCl Oral Soln) 20 meq 1X ONCE PEG Last administered on 10:05; Start 12/01/16 at 10:00; Stop 12/01/16 at 10:01; Status DC Vancomycin HCl (Vanco Per Pharmacy) 1 each PRN DAILY PRN MC SEE COMMENTS Last administered on 12/03/16 00:22; Start 12/01/16 at 10:15 Vancomycin HCl 1.5 gm/Sodium Chloride 500 ml @ 250 mls/hr Q12H IV Last administered on 12/02/16 23:20; Start 12/01/16 at 10:30 Vancomycin HCl 1 each 1X ONCE MC Last administered on 12/02/16 22:00; Start 12/02/16 at 22:00; Stop 12/02/16 at 22:01; Status DC Piperacillin Sod/ Tazobactam Sod 4.5 gm/Sodium Chloride 100 ml @ 200 mls/hr Q6HRS IV Last administered on 12/03/16 05:52; Start 12/01/16 at 12:00 Etomidate (Amidate) 20 mg STK-MED ONCE IV ; Start 11/30/16 at 12:00; Stop at 05:57; Status DC Furosemide (Lasix) 20 mg 1X PRN PRN IV Blood transfusion Last administered on 15:56; Start 12/02/16 at 08:00; Stop 12/03/16 at 07:59; Status DC Sodium Chloride 70 meq/Potassium Acetate 70 meq/ Potassium Phosphate 13.6 mmol/ Magnesium Sulfate 10 meq/ Calcium Gluconate 10 meq/ Multivitamins 10 ml/Chromium / Copper/Manganese/ Seleni/Zn 1 ml/ Total Parenteral Nutrition/Amino Acids/ Dextrose 1,512 ml @ 62.999 mls/ hr TPN CONT IV ; Start 12/02/16 at 22:00; Stop 12/03/16 at 21:59 Info 1 each PRN DAILY PRN MC SEE COMMENTS Last administered on 12/02/16 14:50 ; Start 12/02/16 at 14:00 Midazolam HCl 100 ml @ 0 mls/hr CONT PRN IV SEE I/O RECORD; Start 12/02/16 at 15:15 Amino Acids/ Glycerin/ Electrolytes 1,000 ml @ 80 mls/hr [id number] IV Last administered on 12/03/16 04:03; Start 12/02/16 at 18:00 Sodium Bicarbonate 50 meq 1X ONCE IV Last administered on 12/02/16 20:12; Start 12/02/16 at 19:45; Stop 12/02/16 at 19:46; Status DC Fentanyl Citrate (Fentanyl 2ml Vial) 100 mcg PRN Q2HR PRN IV SEVERE PAIN Last administered on 12/03/16 04:03; Start 12/02/16 at 20:15 Lorazepam (Ativan) 1 mg PRN Q6HRS PRN IV ANXIETY / AGITATION Last administered on 12/03/16 06:38; Start 12/02/16 at 20:15 Insulin Aspart (NovoLOG) 0-5 UNITS Q6HRS SQ Last administered on 12/03/16 08: 03; Start 12/03/16 at 12:00 Dextrose (Dextrose 50%-Water Syringe) 12.5 gm PRN Q15MIN PRN IV SEE COMMENTS; Start 12/03/16 at 06:30 Potassium Chloride 100 ml @ 100 mls/hr PRN Q1HR PRN IV HYPOKALEMIA; Start at 06:30 Potassium Chloride 100 ml @ 100 mls/hr PRN Q1HR PRN IV HYPOKALEMIA; Start at 06:30 Potassium Chloride 100 ml @ 100 mls/hr PRN Q1HR PRN IV K<2.5 Last administered on 12/03/16 07:53; Start 12/03/16 at 06:30 Active Scripts Active Hydrocodone-Apap 7.5-325 (Hydrocodone Bit/Acetaminophen) 1 Each Tablet 1 Tab PO PRN Q6HRS PRN 30 Days Levothyroxine Sodium 150 Mcg Tablet 1 Tab PO DAILY Bentyl (Dicyclomine Hcl) 10 Mg Capsule 20 Mg PO Q6HRS Reported Chantix (Varenicline Tartrate) 1 Mg Tablet 1 Mg PO BID Atorvastatin Calcium 20 Mg Tablet 40 Mg PO HS Vitamin D (Cholecalciferol (Vitamin D3)) 1,000 Unit Capsule 1,000 Unit PO DAILY Vitamin E 400 Unit Capsule 400 Unit PO DAILY Fish Oil ([place]-3 Fatty Acids) 500 Mg Capsule 500 Mg PO DAILY Magnesium Oxide 400 Mg Tablet 400 Mg PO QID Xanax (Alprazolam) 1 Mg Tablet 1 Mg PO QID Lasix (Furosemide) 40 Mg Tablet 40 Mg PO DAILY Aspirin 325 Mg Tablet 325 Mg PO DAILY Gabapentin 600 Mg Tablet 600 Mg PO TID Tizanidine Hcl 4 Mg Tablet 4 Mg PO QID Estradiol 1 Each Patch.tdwk 1 Each TD DAILY07 Omeprazole 20 Mg Tablet.dr 20 Mg PO DAILY07 Klor-Con (Potassium Chloride) 20 Meq Packet 20 Meq PO TID Proair Hfa Inhaler (Albuterol Sulfate) 8.5 Gm Hfa.aer.ad 8.5 Gm IH Q4HRS Advair 500-50 Diskus (Fluticasone/Salmeterol) 1 Each Disk.w.dev 1 Each IH BID Vitals/I & O Vital Sign - Last 24 Hours 12/02/16 12/02/16 12/02/16 12/02/16 09:00 09:12 10:00 11:00 Pulse 64 68 58 Resp 18 23 16 B/P (MAP) 117/68 (84) 131/73 (92) 156/83 (107) Pulse Ox 96 93 96 99 O2 Delivery Ventilator Ventilator Ventilator Ventilator 12/02/16 12/02/16 12/02/16 12/02/16 11:11 12:00 12:00 13:00 Temp 98.5 98.5 Pulse 58 60 Resp 17 19 B/P (MAP) 159/83 (108) 167/87 (113) Pulse Ox 96 96 97 O2 Delivery Ventilator Ventilator Mechanical Ventilator Ventilator 12/02/16 12/02/16 12/02/16 12/02/16 13:11 13:15 13:30 13:45 Temp 98.2 98.6 98.2 98.6 Pulse 58 52 56 Resp 16 16 B/P (MAP) 175/88 179/86 179/88 Pulse Ox 97 O2 Delivery Ventilator 12/02/16 12/02/16 12/02/16 12/02/16 14:00 14:00 14:15 14:30 Pulse 56 54 50 46 Resp 16 16 16 16 B/P (MAP) 174/84 172/84 (113) 167/83 172/84 Pulse Ox 98 O2 Delivery Ventilator 12/02/16 12/02/16 12/02/16 12/02/16 14:45 15:00 15:00 15:55 Temp 98.2 98.2 98.2 98.2 Pulse 52 54 55 Resp 16 16 16 B/P (MAP) 157/72 174/84 (114) 140/67 Pulse Ox 99 98 O2 Delivery Ventilator Ventilator 12/02/16 12/02/16 12/02/16 12/02/16 16:00 16:00 16:03 16:15 Temp 98.2 98.1 98.2 98.1 Pulse 56 54 Resp 18 16 16 B/P (MAP) 138/66 (90) 147/74 Pulse Ox 98 99 O2 Delivery Mechanical Ventilator Ventilator Ventilator 9/12/02/16 12/02/16 12/02/16 16:30 16:45 17:00 17:00 Pulse 48 42 40 Resp 18 16 17 18 B/P (MAP) 157/72 150/77 149/83 Pulse Ox 98 O2 Delivery Ventilator 12/02/16 12/02/16 12/02/16 12/02/16 17:00 17:15 17:29 17:30 Temp 98.7 98.7 Pulse 56 48 52 Resp 19 18 16 B/P (MAP) 149/83 (105) 166/74 164/73 Pulse Ox 99 98 O2 Delivery Ventilator Ventilator 12/02/16 12/02/16 12/02/16 12/02/16 17:45 18:00 18:00 19:00 Temp 98.5 98.5 Pulse 44 41 40 45 Resp 18 16 18 B/P (MAP) 156/59 156/71 (99) 156/59 160/76 (104) Pulse Ox 97 98 O2 Delivery Ventilator Ventilator 12/02/16 12/02/16 12/02/16 12/02/16 19:55 19:58 20:00 21:00 Temp 98.4 98.4 Pulse 52 42 Resp 21 24 21 B/P (MAP) 154/74 (100) 143/65 (91) Pulse Ox 95 95 99 O2 Delivery Nasal Cannula Nasal Cannula Nasal Cannula Nasal Cannula O2 Flow Rate 3.0 3.0 3.0 3.0 12/02/16 12/02/16 12/02/16 12/03/16 21:44 22:00 23:00 00:00 Pulse 40 40 Resp 29 26 22 17 B/P (MAP) 126/75 (92) 160/67 (98) Pulse Ox 98 98 97 97 O2 Delivery Nasal Cannula Nasal Cannula Nasal Cannula Nasal Cannula O2 Flow Rate 3.0 3.0 3.0 3.0 12/03/16 12/03/16 12/03/16 12/03/16 00:00 00:00 01:00 02:00 Temp 97.8 97.8 Pulse 40 38 40 Resp 22 19 24 B/P (MAP) 163/61 (95) 142/73 (96) 164/81 (108) Pulse Ox 97 96 94 O2 Delivery Nasal Cannula Nasal Cannula Nasal Cannula Nasal Cannula O2 Flow Rate 3.0 3.0 3.0 3.0 12/03/16 12/03/16 12/03/16 12/03/16 03:00 04:00 04:00 04:03 Temp 98.4 98.4 Pulse 38 40 Resp 24 20 20 B/P (MAP) 167/73 (104) 145/86 (105) Pulse Ox 91 95 95 O2 Delivery Nasal Cannula Nasal Cannula Nasal Cannula Nasal Cannula O2 Flow Rate 3.0 4.0 4.0 4.0 12/03/16 12/03/16 12/03/16 04:33 05:00 06:00 Pulse 42 50 Resp 20 21 21 B/P (MAP) 170/76 (107) 177/76 (109) Pulse Ox 95 96 97 O2 Delivery Nasal Cannula Nasal Cannula Nasal Cannula O2 Flow Rate 4.0 4.0 4.0 NICOLAS HICKS MD Dec 03, 2016 08:52
[2016-12-03] MEDS: ANTI-COAG MONITOR BY PHARMACY. MC PRN (09:36)
--- NOTE | 2016-12-03 10:51 | PDOC ---
PULMONARY PROGRESS NOTES Subjective extubated 12/02 doing well on canula Vitals Vital Signs Date Time Temp Pulse Resp B/P (MAP) Pulse Ox O2 Delivery O2 Flow Rate FiO2 12/03/16 09:00 58 20 145/68 (93) 98 Nasal Cannula 4.0 12/03/16 07:00 98.5 98.5 General: Alert, No acute distress Lungs: Other (decrease bs) Cardiovascular: S1 Abdomen: Soft, Other (colostomy bag wit hno blood) Neuro Exam: Alert Extremities: No Edema Skin: Warm Labs Laboratory Tests Test 12/01/16 12:00 12/01/16 12:10 12/01/16 16:25 12/01/16 23:30 O2 Saturation 93 % (92-99) Arterial Blood pH 7.44 (7.35-7.45) Arterial Blood pCO2 at Patient Temp 36 mmHg (35-46) Arterial Blood pO2 at Patient Temp 64 mmHg (65-108) Arterial Blood HCO3 24 mmol/L (21-28) Arterial Blood Base Excess 0 mmol/L (-3-3) FiO2 50 Nasal Screen MRSA (PCR) Negative (Negative) Heparin Anti-Xa Act, Unfractionated 0.27 IU/mL (0.30-0.70) 0.44 IU/mL (0.30-0.70) Test 12/02/16 06:20 12/02/16 08:00 12/02/16 15:30 12/02/16 18:50 White Blood Count 14.9 x10^3/uL (4.0-11.0) 15.0 x10^3/uL (4.0-11.0) Red Blood Count 2.73 x10^6/uL (3.50-5.40) 3.74 x10^6/uL (3.50-5.40) Hemoglobin 7.4 g/dL (12.0-15.5) 10.4 g/dL (12.0-15.5) Hematocrit 22.7 % (36.0-47.0) 31.6 % (36.0-47.0) Mean Corpuscular Volume 83 fL (79-100) 85 fL (79-100) Mean Corpuscular Hemoglobin 27 pg (25-35) 28 pg (25-35) Mean Corpuscular Hemoglobin Concent 33 g/dL (31-37) 33 g/dL (31-37) Red Cell Distribution Width 15.4 % (11.5-14.5) 15.4 % (11.5-14.5) Platelet Count 307 x10^3/uL (140-400) 341 x10^3/uL (140-400) Heparin Anti-Xa Act, Unfractionated 0.33 IU/mL (0.30-0.70) Sodium Level 140 mmol/L (136-145) Potassium Level 3.5 mmol/L (3.5-5.1) Chloride Level 107 mmol/L (98-107) Carbon Dioxide Level 25 mmol/L (21-32) Anion Gap 8 (6-14) Blood Urea Nitrogen 11 mg/dL (7-20) Creatinine 0.8 mg/dL (0.6-1.0) Estimated GFR (Cockcroft-Gault) 73.4 Glucose Level 108 mg/dL (70-99) Calcium Level 8.2 mg/dL (8.5-10.1) O2 Saturation 94 % (92-99) Arterial Blood pH 7.46 (7.35-7.45) Arterial Blood pCO2 at Patient Temp 32 mmHg (35-46) Arterial Blood pO2 at Patient Temp 71 mmHg (65-108) Arterial Blood HCO3 22 mmol/L (21-28) Arterial Blood Base Excess -1 mmol/L (-3-3) FiO2 35 Troponin I Quantitative < 0.017 ng/mL (0.000-0.055) Test 12/02/16 19:32 12/02/16 22:15 12/03/16 05:20 12/03/16 08:15 O2 Saturation 97 % (92-99) Arterial Blood pH 7.51 (7.35-7.45) Arterial Blood pCO2 at Patient Temp 30 mmHg (35-46) Arterial Blood pO2 at Patient Temp 88 mmHg (65-108) Arterial Blood HCO3 24 mmol/L (21-28) Arterial Blood Base Excess 1 mmol/L (-3-3) FiO2 35 Vancomycin Level Trough 18.7 mcg/mL (10.0-20.0) Vancomycin Last Dose Date Vancomycin Last Dose Time White Blood Count 13.9 x10^3/uL (4.0-11.0) Red Blood Count 3.60 x10^6/uL (3.50-5.40) Hemoglobin 10.0 g/dL (12.0-15.5) Hematocrit 29.9 % (36.0-47.0) Mean Corpuscular Volume 83 fL (79-100) Mean Corpuscular Hemoglobin 28 pg (25-35) Mean Corpuscular Hemoglobin Concent 33 g/dL (31-37) Red Cell Distribution Width 15.0 % (11.5-14.5) Platelet Count 323 x10^3/uL (140-400) Sodium Level 139 mmol/L (136-145) Potassium Level 2.5 mmol/L (3.5-5.1) Chloride Level 97 mmol/L (98-107) Carbon Dioxide Level 28 mmol/L (21-32) Anion Gap 14 (6-14) Blood Urea Nitrogen 13 mg/dL (7-20) Creatinine 0.9 mg/dL (0.6-1.0) Estimated GFR (Cockcroft-Gault) 64.1 Glucose Level 332 mg/dL (70-99) Calcium Level 8.0 mg/dL (8.5-10.1) Phosphorus Level 5.8 mg/dL (2.6-4.7) Magnesium Level 1.9 mg/dL (1.8-2.4) Triglycerides Level 195 mg/dL (0-150) Thyroid Stimulating Hormone (TSH) 0.094 uIU/mL (0.358-3.74) Heparin Anti-Xa Act, Unfractionated > 1.10 IU/mL (0.30-0.70) Laboratory Tests Test 12/02/16 15:30 12/02/16 18:50 12/02/16 19:32 12/02/16 22:15 Troponin I Quantitative < 0.017 ng/mL (0.000-0.055) White Blood Count 15.0 x10^3/uL (4.0-11.0) Red Blood Count 3.74 x10^6/uL (3.50-5.40) Hemoglobin 10.4 g/dL (12.0-15.5) Hematocrit 31.6 % (36.0-47.0) Mean Corpuscular Volume 85 fL (79-100) Mean Corpuscular Hemoglobin 28 pg (25-35) Mean Corpuscular Hemoglobin Concent 33 g/dL (31-37) Red Cell Distribution Width 15.4 % (11.5-14.5) Platelet Count 341 x10^3/uL (140-400) O2 Saturation 97 % (92-99) Arterial Blood pH 7.51 (7.35-7.45) Arterial Blood pCO2 at Patient Temp 30 mmHg (35-46) Arterial Blood pO2 at Patient Temp 88 mmHg (65-108) Arterial Blood HCO3 24 mmol/L (21-28) Arterial Blood Base Excess 1 mmol/L (-3-3) FiO2 35 Vancomycin Level Trough 18.7 mcg/mL (10.0-20.0) Vancomycin Last Dose Date Vancomycin Last Dose Time Test 12/03/16 05:20 12/03/16 08:15 White Blood Count 13.9 x10^3/uL (4.0-11.0) Red Blood Count 3.60 x10^6/uL (3.50-5.40) Hemoglobin 10.0 g/dL (12.0-15.5) Hematocrit 29.9 % (36.0-47.0) Mean Corpuscular Volume 83 fL (79-100) Mean Corpuscular Hemoglobin 28 pg (25-35) Mean Corpuscular Hemoglobin Concent 33 g/dL (31-37) Red Cell Distribution Width 15.0 % (11.5-14.5) Platelet Count 323 x10^3/uL (140-400) Sodium Level 139 mmol/L (136-145) Potassium Level 2.5 mmol/L (3.5-5.1) Chloride Level 97 mmol/L (98-107) Carbon Dioxide Level 28 mmol/L (21-32) Anion Gap 14 (6-14) Blood Urea Nitrogen 13 mg/dL (7-20) Creatinine 0.9 mg/dL (0.6-1.0) Estimated GFR (Cockcroft-Gault) 64.1 Glucose Level 332 mg/dL (70-99) Calcium Level 8.0 mg/dL (8.5-10.1) Phosphorus Level 5.8 mg/dL (2.6-4.7) Magnesium Level 1.9 mg/dL (1.8-2.4) Triglycerides Level 195 mg/dL (0-150) Thyroid Stimulating Hormone (TSH) 0.094 uIU/mL (0.358-3.74) Heparin Anti-Xa Act, Unfractionated > 1.10 IU/mL (0.30-0.70) Medications Active Scripts Medications Dose Route/Sig Max Daily Dose Days Date Category Hydrocodone-Apap 7.5-325 (Hydrocodone Bit/Acetaminophen) 1 Each Tablet 1 Tab PO PRN Q6HRS PRN 30 11/27/16 Rx Levothyroxine Sodium 150 Mcg Tablet 1 Tab PO DAILY 11/27/16 Rx Chantix (Varenicline Tartrate) 1 Mg Tablet 1 Mg PO BID 11/26/16 Reported Bentyl (Dicyclomine Hcl) 10 Mg Capsule 20 Mg PO Q6HRS 11/24/14 Rx Atorvastatin Calcium 20 Mg Tablet 40 Mg PO HS 04/26/13 Reported Vitamin D (Cholecalciferol (Vitamin D3)) 1,000 Unit Capsule 1,000 Unit PO DAILY 04/26/13 Reported Vitamin E 400 Unit Capsule 400 Unit PO DAILY 04/26/13 Reported Fish Oil ([place]-3 Fatty Acids) 500 Mg Capsule 500 Mg PO DAILY 04/26/13 Reported Magnesium Oxide 400 Mg Tablet 400 Mg PO QID 04/26/13 Reported Xanax (Alprazolam) 1 Mg Tablet 1 Mg PO QID 04/26/13 Reported Lasix (Furosemide) 40 Mg Tablet 40 Mg PO DAILY 04/26/13 Reported Aspirin 325 Mg Tablet 325 Mg PO DAILY 04/26/13 Reported Gabapentin 600 Mg Tablet 600 Mg PO TID 04/26/13 Reported Tizanidine Hcl 4 Mg Tablet 4 Mg PO QID 04/26/13 Reported Estradiol 1 Each Patch.tdwk 1 Each TD DAILY07 04/26/13 Reported Omeprazole 20 Mg Tablet.dr 20 Mg PO DAILY07 04/26/13 Reported Klor-Con (Potassium Chloride) 20 Meq Packet 20 Meq PO TID 04/26/13 Reported Proair Hfa Inhaler (Albuterol Sulfate) 8.5 Gm Hfa.aer.ad 8.5 Gm IH Q4HRS 04/26/13 Reported Advair 500-50 Diskus (Fluticasone/Salmeterol) 1 Each Disk.w.dev 1 Each IH BID 04/26/[address] ABD/PELVIS no obvious bleed Impression . 1. Acute respiratory failure, multifactorial in etiology including bacterial pneumonia (hcap, aspiration), septic shock, underlying chronic obstructive pulmonary disease with acute exacerbation, extubated 12/03. Doing well on canula 2. Abnormal chest x-ray and CT of the chest with mild GG infiltrates and LLL consolidation 3. septic shock, off pressor 4. Pulmonary embolism. (small RUL? clinical significance) 5. Status post exploratory laparotomy and revision of ileostomy. 6. Leukocytosis. 7. Coronary artery disease. 8. Obesity. 9. Anemia, no obvious blood loss, improved post TX, neg ct abd/pelvis Plan . 1. Nasal canula. 2. oral nutrition 3. replace K 4. Continue Pulmicort./nebs 5. Solu-Cortef , dc today and change to PO steroids 6. Continue Protonix. 7. Can start Xarelto.( PE is not so clinically significant). probably 6 weeks of AC sufficient 8. Elevate head of bed. 9. Pt eval/Rx 10. The findings and recommendations were discussed with MARQUIS SHELTON MD Dec 03, 2016 10:51
--- NOTE | 2016-12-03 11:19 | PDOC ---
Subjective: Subjective: Pain is "not too good" but "is never good." Worse w/ coughing. Tolerating PO. Does not mention dysphagia. Objective: Objective: D/w RN - ostomy functioning, tolerating PO so far. Vital Signs: Vital Signs Date Time Temp Pulse Resp B/P (MAP) Pulse Ox O2 Delivery O2 Flow Rate FiO2 12/03/16 11:04 60 126/61 (82) 95 Nasal Cannula 4.0 12/03/16 09:00 20 12/03/16 07:00 98.5 98.5 Labs: Laboratory Tests Test 12/02/16 15:30 12/02/16 18:50 12/02/16 19:32 12/02/16 22:15 Troponin I Quantitative < 0.017 ng/mL White Blood Count 15.0 x10^3/uL Red Blood Count 3.74 x10^6/uL Hemoglobin 10.4 g/dL Hematocrit 31.6 % Mean Corpuscular Volume 85 fL Mean Corpuscular Hemoglobin 28 pg Mean Corpuscular Hemoglobin Concent 33 g/dL Red Cell Distribution Width 15.4 % Platelet Count 341 x10^3/uL O2 Saturation 97 % Arterial Blood pH 7.51 Arterial Blood pCO2 at Patient Temp 30 mmHg Arterial Blood pO2 at Patient Temp 88 mmHg Arterial Blood HCO3 24 mmol/L Arterial Blood Base Excess 1 mmol/L FiO2 35 Vancomycin Level Trough 18.7 mcg/mL Vancomycin Last Dose Date Vancomycin Last Dose Time Test 12/03/16 05:20 12/03/16 08:15 White Blood Count 13.9 x10^3/uL Red Blood Count 3.60 x10^6/uL Hemoglobin 10.0 g/dL Hematocrit 29.9 % Mean Corpuscular Volume 83 fL Mean Corpuscular Hemoglobin 28 pg Mean Corpuscular Hemoglobin Concent 33 g/dL Red Cell Distribution Width 15.0 % Platelet Count 323 x10^3/uL Sodium Level 139 mmol/L Potassium Level 2.5 mmol/L Chloride Level 97 mmol/L Carbon Dioxide Level 28 mmol/L Anion Gap 14 Blood Urea Nitrogen 13 mg/dL Creatinine 0.9 mg/dL Estimated GFR (Cockcroft-Gault) 64.1 Glucose Level 332 mg/dL Calcium Level 8.0 mg/dL Phosphorus Level 5.8 mg/dL Magnesium Level 1.9 mg/dL Triglycerides Level 195 mg/dL Thyroid Stimulating Hormone (TSH) 0.094 uIU/mL Heparin Anti-Xa Act, Unfractionated > 1.10 IU/mL Imaging: CT A/P w/o contrast 12/02/16 IMPRESSION: Soft tissue swelling suggesting a systemic process such as anasarca. Volume loss at the lung bases left greater than right compatible with atelectasis or pneumonia. There is likely a tiny left pleural effusion. Slight mesenteric stranding likely a function of recent operative intervention. Small amount of free fluid in the dependent portion of the pelvis No definite evidence of hemorrhage in the abdomen or pelvis. Fluid collection in the left ventral abdominal wall likely reflecting a small hematoma or seroma. PE: GEN: NAD, eating pudding LUNGS: wet cough HEART: bradycardic ABD: soft, ostomy w/ liquid stool NEURO/PSYCH: A & O 3 A/P: S/p hernia repair 11/28 Resp failure, pneumonia/COPD, PE - now extubated Leukocytosis - atbx per ID Bradycardia Anemia - Hgb improved after transfusions, stable S/p colectomy, proctectomy w/ ileostomy -- Will change back to PO PPI. VIJAY BRIONES Dec 03, 2016 11:19
--- NOTE | 2016-12-03 12:02 | PDOC ---
SURGICAL PROGRESS NOTE Subjective Pt feels better today, breathing better Vital Signs Vital Signs Date Time Temp Pulse Resp B/P (MAP) Pulse Ox O2 Delivery O2 Flow Rate FiO2 12/03/16 11:04 60 126/61 (82) 95 Nasal Cannula 4.0 12/03/16 09:00 20 12/03/16 07:00 98.5 98.5 I&O Intake and Output 12/04/16 07:00 Intake Total 670 ml Output Total 1000 ml Balance -330 ml Intake Oral 370 ml IV Total 300 ml Output Urine Total 1000 ml General: Alert, Oriented X3, Cooperative, No acute distress Abdomen: Soft, No tenderness Labs Laboratory Tests Test 12/01/16 12:00 12/01/16 12:10 12/01/16 16:25 12/01/16 23:30 O2 Saturation 93 % (92-99) Arterial Blood pH 7.44 (7.35-7.45) Arterial Blood pCO2 at Patient Temp 36 mmHg (35-46) Arterial Blood pO2 at Patient Temp 64 mmHg (65-108) Arterial Blood HCO3 24 mmol/L (21-28) Arterial Blood Base Excess 0 mmol/L (-3-3) FiO2 50 Nasal Screen MRSA (PCR) Negative (Negative) Heparin Anti-Xa Act, Unfractionated 0.27 IU/mL (0.30-0.70) 0.44 IU/mL (0.30-0.70) Test 12/02/16 06:20 12/02/16 08:00 12/02/16 15:30 12/02/16 18:50 White Blood Count 14.9 x10^3/uL (4.0-11.0) 15.0 x10^3/uL (4.0-11.0) Red Blood Count 2.73 x10^6/uL (3.50-5.40) 3.74 x10^6/uL (3.50-5.40) Hemoglobin 7.4 g/dL (12.0-15.5) 10.4 g/dL (12.0-15.5) Hematocrit 22.7 % (36.0-47.0) 31.6 % (36.0-47.0) Mean Corpuscular Volume 83 fL (79-100) 85 fL (79-100) Mean Corpuscular Hemoglobin 27 pg (25-35) 28 pg (25-35) Mean Corpuscular Hemoglobin Concent 33 g/dL (31-37) 33 g/dL (31-37) Red Cell Distribution Width 15.4 % (11.5-14.5) 15.4 % (11.5-14.5) Platelet Count 307 x10^3/uL (140-400) 341 x10^3/uL (140-400) Heparin Anti-Xa Act, Unfractionated 0.33 IU/mL (0.30-0.70) Sodium Level 140 mmol/L (136-145) Potassium Level 3.5 mmol/L (3.5-5.1) Chloride Level 107 mmol/L (98-107) Carbon Dioxide Level 25 mmol/L (21-32) Anion Gap 8 (6-14) Blood Urea Nitrogen 11 mg/dL (7-20) Creatinine 0.8 mg/dL (0.6-1.0) Estimated GFR (Cockcroft-Gault) 73.4 Glucose Level 108 mg/dL (70-99) Calcium Level 8.2 mg/dL (8.5-10.1) O2 Saturation 94 % (92-99) Arterial Blood pH 7.46 (7.35-7.45) Arterial Blood pCO2 at Patient Temp 32 mmHg (35-46) Arterial Blood pO2 at Patient Temp 71 mmHg (65-108) Arterial Blood HCO3 22 mmol/L (21-28) Arterial Blood Base Excess -1 mmol/L (-3-3) FiO2 35 Troponin I Quantitative < 0.017 ng/mL (0.000-0.055) Test 12/02/16 19:32 12/02/16 22:15 12/03/16 05:20 12/03/16 08:15 O2 Saturation 97 % (92-99) Arterial Blood pH 7.51 (7.35-7.45) Arterial Blood pCO2 at Patient Temp 30 mmHg (35-46) Arterial Blood pO2 at Patient Temp 88 mmHg (65-108) Arterial Blood HCO3 24 mmol/L (21-28) Arterial Blood Base Excess 1 mmol/L (-3-3) FiO2 35 Vancomycin Level Trough 18.7 mcg/mL (10.0-20.0) Vancomycin Last Dose Date Vancomycin Last Dose Time White Blood Count 13.9 x10^3/uL (4.0-11.0) Red Blood Count 3.60 x10^6/uL (3.50-5.40) Hemoglobin 10.0 g/dL (12.0-15.5) Hematocrit 29.9 % (36.0-47.0) Mean Corpuscular Volume 83 fL (79-100) Mean Corpuscular Hemoglobin 28 pg (25-35) Mean Corpuscular Hemoglobin Concent 33 g/dL (31-37) Red Cell Distribution Width 15.0 % (11.5-14.5) Platelet Count 323 x10^3/uL (140-400) Sodium Level 139 mmol/L (136-145) Potassium Level 2.5 mmol/L (3.5-5.1) Chloride Level 97 mmol/L (98-107) Carbon Dioxide Level 28 mmol/L (21-32) Anion Gap 14 (6-14) Blood Urea Nitrogen 13 mg/dL (7-20) Creatinine 0.9 mg/dL (0.6-1.0) Estimated GFR (Cockcroft-Gault) 64.1 Glucose Level 332 mg/dL (70-99) Calcium Level 8.0 mg/dL (8.5-10.1) Phosphorus Level 5.8 mg/dL (2.6-4.7) Magnesium Level 1.9 mg/dL (1.8-2.4) Triglycerides Level 195 mg/dL (0-150) Thyroid Stimulating Hormone (TSH) 0.094 uIU/mL (0.358-3.74) Heparin Anti-Xa Act, Unfractionated > 1.10 IU/mL (0.30-0.70) Laboratory Tests Test 12/02/16 15:30 12/02/16 18:50 12/02/16 19:32 12/02/16 22:15 Troponin I Quantitative < 0.017 ng/mL (0.000-0.055) White Blood Count 15.0 x10^3/uL (4.0-11.0) Red Blood Count 3.74 x10^6/uL (3.50-5.40) Hemoglobin 10.4 g/dL (12.0-15.5) Hematocrit 31.6 % (36.0-47.0) Mean Corpuscular Volume 85 fL (79-100) Mean Corpuscular Hemoglobin 28 pg (25-35) Mean Corpuscular Hemoglobin Concent 33 g/dL (31-37) Red Cell Distribution Width 15.4 % (11.5-14.5) Platelet Count 341 x10^3/uL (140-400) O2 Saturation 97 % (92-99) Arterial Blood pH 7.51 (7.35-7.45) Arterial Blood pCO2 at Patient Temp 30 mmHg (35-46) Arterial Blood pO2 at Patient Temp 88 mmHg (65-108) Arterial Blood HCO3 24 mmol/L (21-28) Arterial Blood Base Excess 1 mmol/L (-3-3) FiO2 35 Vancomycin Level Trough 18.7 mcg/mL (10.0-20.0) Vancomycin Last Dose Date Vancomycin Last Dose Time Test 12/03/16 05:20 12/03/16 08:15 White Blood Count 13.9 x10^3/uL (4.0-11.0) Red Blood Count 3.60 x10^6/uL (3.50-5.40) Hemoglobin 10.0 g/dL (12.0-15.5) Hematocrit 29.9 % (36.0-47.0) Mean Corpuscular Volume 83 fL (79-100) Mean Corpuscular Hemoglobin 28 pg (25-35) Mean Corpuscular Hemoglobin Concent 33 g/dL (31-37) Red Cell Distribution Width 15.0 % (11.5-14.5) Platelet Count 323 x10^3/uL (140-400) Sodium Level 139 mmol/L (136-145) Potassium Level 2.5 mmol/L (3.5-5.1) Chloride Level 97 mmol/L (98-107) Carbon Dioxide Level 28 mmol/L (21-32) Anion Gap 14 (6-14) Blood Urea Nitrogen 13 mg/dL (7-20) Creatinine 0.9 mg/dL (0.6-1.0) Estimated GFR (Cockcroft-Gault) 64.1 Glucose Level 332 mg/dL (70-99) Calcium Level 8.0 mg/dL (8.5-10.1) Phosphorus Level 5.8 mg/dL (2.6-4.7) Magnesium Level 1.9 mg/dL (1.8-2.4) Triglycerides Level 195 mg/dL (0-150) Thyroid Stimulating Hormone (TSH) 0.094 uIU/mL (0.358-3.74) Heparin Anti-Xa Act, Unfractionated > 1.10 IU/mL (0.30-0.70) Problem List Problems Medical Problems: (1) Abdominal pain Status: Acute Assessment/Plan cont supportive care and pulm toilet d/w Dr. Hancock Problems: LETICIA KAUFFMAN MD Dec 03, 2016 12:02
--- NOTE | 2016-12-03 12:38 | PDOC2 ---
LILLIAM BLACKMAN REPAIRER PUMP 12/03/16 1238: CARDIAC CONSULT DATE OF CONSULT Date of Consult DATE: 12/03/16 TIME: 11:57 REASON FOR CONSULT Reason for Consult: bradycardia, hx of CAD REFERRING PHYSICIAN Referring Physician: Carolyn SOURCE Source: Chart review, Patient HISTORY OF PRESENT ILLNESS HISTORY OF PRESENT ILLNESS This is a pleasant 61 yo female admitted for complains of abdominal pain and vomiting. Pt is significant for multiple abdominal surgeries with one recently done ventral incision hernia repair and ostomy repair. She has been evaluated by multiple consultants and during her stay she was noted with HR in the 40s and upper 30s but clearly no cardiac symptoms and her BP was adequate. During that time she was having abdominal pain, she was anxious and her potassium was eventually noted low at 2.5. She also takes metoprolol for PAFIB. Prior to this admission she has not been having CP, palpitations, or frequent dizziness. In addition she had good tolerance with her previous abdominal surgery. She does have SOA but no different from her baseline and blaming it on COPD but does complain of productive and later noted with PE as well via CTA. She saw her caustics loader at [facility] 6-8 months ago and had stress test and echocardiogram and was told that these were ok. Presently she remains anxious but feels better. PAST MEDICAL HISTORY Cardiovascular: AFIB, CAD, HTN, Hyperlipidemia, Other (cardiac arrest in 2006) Pulmonary: COPD (O2 dependent at ) CENTRAL NERVOUS SYSTEM: CVA GI: GERD, Other (bowel obstruction with multiple adhesions; ileostomy) Heme/Onc: Anemia NOS Psych: Anxiety, Depression Musculoskeletal: low back pain, Osteoarthritis, Other (chronic pain syndrome) Infectious disease: No pertinent hx ENT: Allergic Rhinitis PAST SURGICAL HISTORY Past Surgical History: Cholecystectomy, Hernia Repair, Total hip replacement ( left), Total knee replacement (right), Hysterectomy, Other (multiple bowel surgery including ostomy placement with revisions, bowel resection; back surgery , sinus surgery; PCI/stent 2006) FAMILY HISTORY Family History: Stroke SOCIAL HISTORY Smoke: Quit ALCOHOL: none Drugs: None Lives: Alone CURRENT MEDICATIONS CURRENT MEDICATIONS Current Medications Medications (Trade) Dose Ordered Sig/Joel Route PRN Reason Start Time Stop Time Status Last Admin Dose Admin Vancomycin HCl 1 each 1X ONCE MC 12/02/16 22:00 12/02/16 22:01 DC 12/02/16 22:00 Info 1 each PRN DAILY PRN MC SEE COMMENTS 12/02/16 14:00 12/03/16 10:45 DC 12/02/16 14:50 Amino Acids/ Glycerin/ Electrolytes 1,000 ml @ 80 mls/hr [id number] IV 12/02/16 18:00 12/03/16 04:03 Sodium Bicarbonate 50 meq 1X ONCE IV 12/02/16 19:45 12/02/16 19:46 DC 12/02/16 20:12 Fentanyl Citrate (Fentanyl 2ml Vial) 100 mcg PRN Q2HR PRN IV SEVERE PAIN 12/02/16 20:15 12/03/16 04:03 Lorazepam (Ativan) 1 mg PRN Q6HRS PRN IV ANXIETY / AGITATION 12/02/16 20:15 12/03/16 06:38 Insulin Aspart (NovoLOG) 0-5 UNITS Q6HRS SQ 12/03/16 12:00 12/03/16 08:03 Potassium Chloride 100 ml @ 100 mls/hr PRN Q1HR PRN IV K<2.5 12/03/16 06:30 12/03/16 10:55 Info (Anti-Coagulation Monitoring By Pharmacy) 1 each PRN DAILY PRN MC SEE COMMENTS 12/03/16 08:45 12/03/16 09:36 ALLERGIES ALLERGIES: Coded Allergies: phenytoin sodium (Verified Allergy, Intermediate, 11/28/16) phenytoin sodium extended (Verified Allergy, Intermediate, 11/28/16) doxycycline (Verified Adverse Reaction, Intermediate, GI UPSET, 11/28/16) pregabalin (Verified Adverse Reaction, Intermediate, NIGHTMARES, 11/28/16) ROS Review of System 14 point ROS evaluated with pertinent positives noted per HPI PHYSICAL EXAM General: Alert, Oriented X3, Cooperative, No acute distress HEENT: Atraumatic, Mucous membr. moist/pink Lungs: Other (basilar crackles) Heart: Regular rate (SR), Normal S1, Normal S2, Other (2/6 systolic murmur to LLS border) Abdomen: Soft, No tenderness Extremities: No cyanosis, Other (1-2+ bilateral LE pitting edema) Skin: No breakdown, No significant lesion Psych/Mental Status: Mental status NL, Other (anxious) MUSCULOSKELETAL: Osteoarthritic changes both hands VITALS VITALS Vital Signs Date Time Temp Pulse Resp B/P (MAP) Pulse Ox O2 Delivery O2 Flow Rate FiO2 12/03/16 11:48 97 Nasal Cannula 4.0 12/03/16 11:04 60 126/61 (82) 12/03/16 09:00 20 12/03/16 07:00 98.5 98.5 LABS Lab: Laboratory Tests Test 12/02/16 15:30 12/02/16 18:50 12/02/16 19:32 12/02/16 22:15 Troponin I Quantitative < 0.017 ng/mL (0.000-0.055) White Blood Count 15.0 x10^3/uL (4.0-11.0) Red Blood Count 3.74 x10^6/uL (3.50-5.40) Hemoglobin 10.4 g/dL (12.0-15.5) Hematocrit 31.6 % (36.0-47.0) Mean Corpuscular Volume 85 fL (79-100) Mean Corpuscular Hemoglobin 28 pg (25-35) Mean Corpuscular Hemoglobin Concent 33 g/dL (31-37) Red Cell Distribution Width 15.4 % (11.5-14.5) Platelet Count 341 x10^3/uL (140-400) O2 Saturation 97 % (92-99) Arterial Blood pH 7.51 (7.35-7.45) Arterial Blood pCO2 at Patient Temp 30 mmHg (35-46) Arterial Blood pO2 at Patient Temp 88 mmHg (65-108) Arterial Blood HCO3 24 mmol/L (21-28) Arterial Blood Base Excess 1 mmol/L (-3-3) FiO2 35 Vancomycin Level Trough 18.7 mcg/mL (10.0-20.0) Vancomycin Last Dose Date Vancomycin Last Dose Time Test 12/03/16 05:20 12/03/16 08:15 White Blood Count 13.9 x10^3/uL (4.0-11.0) Red Blood Count 3.60 x10^6/uL (3.50-5.40) Hemoglobin 10.0 g/dL (12.0-15.5) Hematocrit 29.9 % (36.0-47.0) Mean Corpuscular Volume 83 fL (79-100) Mean Corpuscular Hemoglobin 28 pg (25-35) Mean Corpuscular Hemoglobin Concent 33 g/dL (31-37) Red Cell Distribution Width 15.0 % (11.5-14.5) Platelet Count 323 x10^3/uL (140-400) Sodium Level 139 mmol/L (136-145) Potassium Level 2.5 mmol/L (3.5-5.1) Chloride Level 97 mmol/L (98-107) Carbon Dioxide Level 28 mmol/L (21-32) Anion Gap 14 (6-14) Blood Urea Nitrogen 13 mg/dL (7-20) Creatinine 0.9 mg/dL (0.6-1.0) Estimated GFR (Cockcroft-Gault) 64.1 Glucose Level 332 mg/dL (70-99) Calcium Level 8.0 mg/dL (8.5-10.1) Phosphorus Level 5.8 mg/dL (2.6-4.7) Magnesium Level 1.9 mg/dL (1.8-2.4) Triglycerides Level 195 mg/dL (0-150) Thyroid Stimulating Hormone (TSH) 0.094 uIU/mL (0.358-3.74) Heparin Anti-Xa Act, Unfractionated > 1.10 IU/mL (0.30-0.70) ASSESSMENT/PLAN ASSESSMENT/PLAN 1. Abdominal pain with recent exploratory laparotomy 2. Acute respiratory failure: SOA better 3. Notable for RUL PE (new) and AECOPD/possible pneumonia: Pulmonary following 4. Asymptomatic sinus bradycardia: multifactorial with also underlying hypokalemia. HR 50-60s 5. PAFIB: no episodes. Was placed on ASA for stroke prevention by her previous caustics loader 6. CAD: cardiac arrest in 2006 and eventual PCI/stent. Last stress test 6-8 months ago. 7. Hypokalemia 8. Hypothyroidism Recommendations 1. Obtain records TTE and stress test done in the last 6-8 months at [facility]. 2. Replace K. Continue home statin. Repeat EKG and will note QTc. 3. Continue with ASA, will place on low dose with the addition of NOAC likely eliquis, defer to pulmonary. 4. Accdg to pt she is not on any rate controlling meds and also per chart review. Will await cardiology records. 5. Will plan for MCOT to ascertain AFIB burden for any indication of further therapy otherwise at this time treat extracardiac conditions, no pacemaker indication. 6. Consider starting on ACEi or ARB per BP trend. 7. Supportive care Problems: PACO QUIGLEY MD 12/03/16 1829: CARDIAC CONSULT ALLERGIES ALLERGIES: Coded Allergies: phenytoin sodium (Verified Allergy, Intermediate, 11/28/16) phenytoin sodium extended (Verified Allergy, Intermediate, 11/28/16) doxycycline (Verified Adverse Reaction, Intermediate, GI UPSET, 11/28/16) pregabalin (Verified Adverse Reaction, Intermediate, NIGHTMARES, 11/28/16) ASSESSMENT/PLAN ASSESSMENT/PLAN Patient seen and examined. Agree with ASSEMBLER PRODUCT's assessment and plan. Sinus bradycardia most probably vasovagal. No pauses on tele Replace K. We will obtain echo/stress test results from primary caustics loader office CAD status stable We will consider event monitor as outpatient. Thank you for your consultation Problems: LILLIAM BLACKMAN APRN Dec 03, 2016 12:38 PACO QUIGLEY MD Dec 03, 2016 18:29
--- NOTE | 2016-12-03 14:45 | EKG ---
[address] [place] [address] Test Date: 2016-12-03 Test Time: 14:41:13 Pat Name: BELLA ROACH Department: Room: 103 1 Gender: F [employer]: RIGO : 1955 Requested By: LILLIAM BLACKMAN Order Number: [id number] Reading MD: Cassi Rosales Measurements Intervals [place] Rate: 59 P: -47 CA: 152 QRS: 4 QRSD: 100 T: 24 QT: 474 QTc: 474 Interpretive Statements SINUS RHYTHM LOW LIMB LEAD VOLTAGE Electronically Signed On 12-08-2016 21:52:19 CDT by Cassi Rosales
[2016-12-03] MEDS: VANCOMYCIN 1.5 GM in IV NORMAL SALINE 500ML BAG 500 ML IV SCH ×2 (15:12→23:09)
--- NOTE | 2016-12-03 15:52 | CARD ---
APPROVED REPORT EXAM: LIMITED Two-dimensional echocardiogram. Other Information Quality : Average Rhythm : NSR INDICATION LV Function:Systolic Check pulmonary artery pressure 2D DIMENSIONS Left Atrium(2D)3.3 (1.6-4.0cm)IVSd1.3 (0.7-1.1cm) Aortic Root(2D)3.2 (2.0-3.7cm)LVDd4.2 (3.9-5.9cm) PWd1.3 (0.7-1.1cm)LVDs2.6 (2.5-4.0cm) FS (%) 37.7 %SV52.2 ml LVEF(%)65.2 (>50%) Tricuspid Valve TR P. [id number] [id number] TR Peak [id number] LEFT VENTRICLE The left ventricle is normal size. There is borderline concentric left ventricular hypertrophy. Left ventricle systolic function is normal. The Ejection Fraction is 60-65%. There is normal LV segmental wall motion. ATRIA The left atrium size is normal. TRICUSPID VALVE The tricuspid valve is not well visualized. Doppler and Color Flow revealed trace to mild tricuspid r egurgitation. The PA pressure was estimated at 24 mmHg. GREAT VESSELS The aortic root is normal in size. PERICARDIAL EFFUSION There is no evidence of significant pericardial effusion. Critical Notification Critical Value: No <Conclusion> Left ventricle systolic function is normal. The Ejection Fraction is 60-65%. There is normal LV segmental wall motion. Doppler and Color Flow revealed trace to mild tricuspid regurgitation. The PA pressure was estimated at 24 mmHg. Limited TTE only for LV function and RVSP.
[2016-12-03] MEDS: DICYCLOMINE HCL 10 MG CAPSULE PO PRN (21:39)
[2016-12-03] MEDS: ATORVASTATIN CALCIUM 20 MG TABLET PO SCH (21:39)
[2016-12-03] MEDS: APIXABAN 5 MG TABLET. PO SCH (21:40)
[2016-12-03] MEDS: IBUPROFEN 200 MG TABLET. PO PRN (23:11)
[2016-12-04] MEDS: PIPERACILLIN/TAZOBACTAM 4.5 GM in IV NORMAL SALINE 100ML 100 ML IV SCH ×2 (00:28→05:31)
[2016-12-04] MEDS: DICYCLOMINE HCL 10 MG CAPSULE PO PRN ×2 (03:12→09:05)
[2016-12-04] MEDS: ALPRAZolam 1 MG TABLET PO PRN ×5 (03:12→19:59)
[2016-12-04] MEDS: fentaNYL PF VIAL 100 MCG/2 ML VIAL IV PRN ×7 (03:14→23:31)
[2016-12-04 03:21] VITALS: BP 153/78
[2016-12-04] MEDS: AMINO AC 3%/ELECTROLYTE/GLYCER 1,000 ML IV SCH (05:30)
[2016-12-04] MEDS: ONDANSETRON PF 4 MG/2 ML VIAL. IV PRN (05:31)
[2016-12-04] MEDS: INSULIN ASPART 300 UNITS/3 ML INSULN.PEN SQ SCH ×5 (06:00→23:38)
[2016-12-04] MEDS: PANTOPRAZOLE 40 MG TABLET.DR. PO SCH (06:04)
[2016-12-04] MEDS: LEVOTHYROXINE 150 MCG TABLET PO SCH (06:04)
[2016-12-04] MEDS: HYDROcodone/APAP 7.5/325MG 1 TAB TABLET PO PRN ×3 (06:04→20:01)
[2016-12-04 06:43] LABS: HEMATOCRIT 31.8 % (36.0-47.0); HEMOGLOBIN 10.6 g/dL (12.0-15.5); RED BLOOD COUNT 3.8 x10^6/uL (3.50-5.40); RED CELL DISTRIBUTION WIDTH 15.3 % (11.5-14.5); WHITE BLOOD COUNT 10.5 x10^3/uL (4.0-11.0)
[2016-12-04 06:46] LABS: MAGNESIUM 1.9 mg/dL (1.8-2.4); PHOSPHORUS 2.8 mg/dL (2.6-4.7)
[2016-12-04 06:52] LABS: CALCIUM 8.3 mg/dL (8.5-10.1); CREATININE 0.9 mg/dL (0.6-1.0); GFR 64.1
[2016-12-04 06:59] LABS: POTASSIUM 2.7 mmol/L (3.5-5.1)
[2016-12-04 07:00] VITALS: BP 118/64
[2016-12-04] MEDS: BUDESONIDE 0.5 MG/2 ML NEBU. NEB SCH ×2 (07:04→20:02)
[2016-12-04] MEDS: ALBUTEROL SULFATE 2.5 MG/3 ML NEBU. NEB SCH ×4 (07:04→20:02)
[2016-12-04] MEDS ORDERED: PANTOPRAZOLE 40 MG TABLET.DR. PO SCH (07:30)
--- NOTE | 2016-12-04 08:46 | PDOC ---
Infectious Disease Note Subjective Subjective feeling better, abd pain + ROS ROS GEN: Denies fevers, chills, sweats HEENT: Denies blurred vision, sore throat CV: Denies chest pain RESP: Denies shortness of air, cough GI: Denies n/v/d NEURO: Denies confusion, dizziness MSK: Denies weakness, joint pain/swelling Vital Sign Vital Signs Vital Signs Date Time Temp Pulse Resp B/P (MAP) Pulse Ox O2 Delivery O2 Flow Rate FiO2 12/04/16 07:16 99 Nasal Cannula 3.0 12/04/16 07:00 97.6 76 18 118/64 (82) 97.6 Physical Exam PHYSICAL EXAM GENERAL: NAD, Alert HEENT: PERRL, OC/OP NECK: Supple, no JVD, no LN LUNGS: Clear HEART: S1S2, no gallop, no murmur ABD: Soft, NT, no organomegaly, no rebound,, incision looks good EXT: No edema, no cyanosis MOTORCYCLE SUBASSEMBLER: Alert, 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, no focal neurologic deficit SKIN: No rash IV: ok Labs Lab Laboratory Tests Test 12/03/16 12:51 12/03/16 17:54 12/03/16 20:12 12/04/16 00:06 Glucose (Fingerstick) 149 mg/dL (70-99) 107 mg/dL (70-99) 93 mg/dL (70-99) Potassium Level 2.5 mmol/L (3.5-5.1) Test 12/04/16 06:00 12/04/16 06:11 White Blood Count 10.5 x10^3/uL (4.0-11.0) Red Blood Count 3.80 x10^6/uL (3.50-5.40) Hemoglobin 10.6 g/dL (12.0-15.5) Hematocrit 31.8 % (36.0-47.0) Mean Corpuscular Volume 84 fL (79-100) Mean Corpuscular Hemoglobin 28 pg (25-35) Mean Corpuscular Hemoglobin Concent 34 g/dL (31-37) Red Cell Distribution Width 15.3 % (11.5-14.5) Platelet Count 373 x10^3/uL (140-400) Sodium Level 143 mmol/L (136-145) Potassium Level 2.7 mmol/L (3.5-5.1) Chloride Level 103 mmol/L (98-107) Carbon Dioxide Level 32 mmol/L (21-32) Anion Gap 8 (6-14) Blood Urea Nitrogen 11 mg/dL (7-20) Creatinine 0.9 mg/dL (0.6-1.0) Estimated GFR (Cockcroft-Gault) 64.1 Glucose Level 94 mg/dL (70-99) Calcium Level 8.3 mg/dL (8.5-10.1) Phosphorus Level 2.8 mg/dL (2.6-4.7) Magnesium Level 1.9 mg/dL (1.8-2.4) Glucose (Fingerstick) 96 mg/dL (70-99) Micro BC neg SPUTUM CULTURE-LC Final Final report The Directory of Services listing for this report is "Lower Respiratory Culture", test number 420691. This title and test code number are being discontinued effective 2016. For sputum culture in the future, use the Directory of Services listing "Gram Stain Evaluation With Sputum Culture Reflex", test number 130588. For culture of lower respiratory specimens other than expectorated sputum in the future, [facility] will offer "Lower Respiratory Culture, Other than Expectorated Sputum", test number 491946. SPUTUM CULT RES 1 Final Serratia marcescens Moderate growth SPUTUM CULT RES 2 Final Comment Methicillin - resistant Staphylococcus aureus Moderate growth Based on resistance to oxacillin this isolate would be resistant to all currently available beta-lactam antimicrobial agents, with the exception of the newer cephalosporins with anti-MRSA activity, such as Ceftaroline ANTIMICROBIAL SUSCEPTIBILITY Final Comment S = Susceptible; I = Intermediate; R = Resistant P = Positive; N = Negative MICS are expressed in micrograms per mL Antibiotic RSLT#1 RSLT#2 RSLT#3 RSLT#4 Amoxicillin/Clavulanic Acid R CONTINUED ON NEXT PAGE RUN DATE: 12/03/16 PAGE 2 RUN TIME: 1322 [facility] [address] [place] [address] James Awan M.D., Public Events Facilities Rental Manager SPEC: [id number] PATIENT: BELLA ROACH [id number] ( Continued) Procedure Result ANTIMICROBIAL SUSCEPTIBILITY Final (continued) Cefazolin R Cefepime S Ceftriaxone S Cefuroxime R Ciprofloxacin S R Clindamycin S Ertapenem S Erythromycin R Gentamicin S S Imipenem S Levofloxacin S I Linezolid S Oxacillin R Penicillin R Piperacillin S Rifampin S Tetracycline S S Tobramycin S Trimethoprim/Sulfa S S Vancomycin S Performed at: [address] [id number] Real Estate Agent/Broker: Judie Harris MD, Phone: [phone] Objective Assessment Fever Leukocytosis Aspiration/HCAP Respiratory failure S/P colostomy revision Plan Plan of Care cipro and zyvox po supportive care d/w dr Leon pt/ot BONNIE CANADA MD Dec 04, 2016 08:46
--- NOTE | 2016-12-04 08:59 | PDOC ---
PROGRESS NOTES Subjective Subjective Patient tearful, c/o abdominal soreness from coughing. Requesting regular diet. Objective Objective Vital Signs Date Time Temp Pulse Resp B/P (MAP) Pulse Ox O2 Delivery O2 Flow Rate FiO2 12/04/16 07:16 99 Nasal Cannula 3.0 12/04/16 07:00 97.6 76 18 118/64 (82) 97.6 Physical Exam Abdomen: Normal bowel sounds, Soft Heart: Regular rate Extremities: No edema General: Alert, Oriented X3, No acute distress Lungs: Other (BS mildly decreased throughout otherwise CTA) Assessment Assessment Problems Medical Problems: (1) Abdominal pain Status: Acute Plan Plan of Care 1. Acute respiratory failure with MRSA pneumonia and COPD - stable after extubation. Sats good on O2 per NC. Continue abx per ID, continue nebs, decreasing Prednisone per Pulmonary. 2. POD #6 hernia repair - stable, good output from new ostomy. Advance to regular diet and d/c PPN. 3. bradycardia - appears to have resolved. Echo with preserved EF and no wall motion abnormalities. Cardiology following. 4. hypokalemia - still low, start po replacement and follow lab. 5. pulmonary emboli - Dr Hancock feels not too clinically significant. Agree with 6 weeks of Xarelto. 6. anemia - stable after transfusion, no evidence of ongoing blood loss. 7. chronic anxiety - continue reassurance and her usual meds. 8. debility - resume PT and OT. 9. chronic pain - stable, continue po pain meds, nursing trying to minimize IV pain meds, dose decreased today. Comment Review of Relevant I have reviewed the following items chris (where applicable) has been applied. Labs Laboratory Tests Test 12/02/16 15:30 12/02/16 18:50 12/02/16 19:32 12/02/16 22:15 Troponin I Quantitative < 0.017 ng/mL (0.000-0.055) White Blood Count 15.0 x10^3/uL (4.0-11.0) Red Blood Count 3.74 x10^6/uL (3.50-5.40) Hemoglobin 10.4 g/dL (12.0-15.5) Hematocrit 31.6 % (36.0-47.0) Mean Corpuscular Volume 85 fL (79-100) Mean Corpuscular Hemoglobin 28 pg (25-35) Mean Corpuscular Hemoglobin Concent 33 g/dL (31-37) Red Cell Distribution Width 15.4 % (11.5-14.5) Platelet Count 341 x10^3/uL (140-400) O2 Saturation 97 % (92-99) Arterial Blood pH 7.51 (7.35-7.45) Arterial Blood pCO2 at Patient Temp 30 mmHg (35-46) Arterial Blood pO2 at Patient Temp 88 mmHg (65-108) Arterial Blood HCO3 24 mmol/L (21-28) Arterial Blood Base Excess 1 mmol/L (-3-3) FiO2 35 Vancomycin Level Trough 18.7 mcg/mL (10.0-20.0) Vancomycin Last Dose Date Vancomycin Last Dose Time Test 12/03/16 05:20 12/03/16 08:15 12/03/16 12:51 12/03/16 17:54 White Blood Count 13.9 x10^3/uL (4.0-11.0) Red Blood Count 3.60 x10^6/uL (3.50-5.40) Hemoglobin 10.0 g/dL (12.0-15.5) Hematocrit 29.9 % (36.0-47.0) Mean Corpuscular Volume 83 fL (79-100) Mean Corpuscular Hemoglobin 28 pg (25-35) Mean Corpuscular Hemoglobin Concent 33 g/dL (31-37) Red Cell Distribution Width 15.0 % (11.5-14.5) Platelet Count 323 x10^3/uL (140-400) Sodium Level 139 mmol/L (136-145) Potassium Level 2.5 mmol/L (3.5-5.1) Chloride Level 97 mmol/L (98-107) Carbon Dioxide Level 28 mmol/L (21-32) Anion Gap 14 (6-14) Blood Urea Nitrogen 13 mg/dL (7-20) Creatinine 0.9 mg/dL (0.6-1.0) Estimated GFR (Cockcroft-Gault) 64.1 Glucose Level 332 mg/dL (70-99) Calcium Level 8.0 mg/dL (8.5-10.1) Phosphorus Level 5.8 mg/dL (2.6-4.7) Magnesium Level 1.9 mg/dL (1.8-2.4) Triglycerides Level 195 mg/dL (0-150) Thyroid Stimulating Hormone (TSH) 0.094 uIU/mL (0.358-3.74) Heparin Anti-Xa Act, Unfractionated > 1.10 IU/mL (0.30-0.70) Glucose (Fingerstick) 149 mg/dL (70-99) 107 mg/dL (70-99) Test 12/03/16 20:12 12/04/16 00:06 12/04/16 06:00 12/04/16 06:11 Potassium Level 2.5 mmol/L (3.5-5.1) 2.7 mmol/L (3.5-5.1) Glucose (Fingerstick) 93 mg/dL (70-99) 96 mg/dL (70-99) White Blood Count 10.5 x10^3/uL (4.0-11.0) Red Blood Count 3.80 x10^6/uL (3.50-5.40) Hemoglobin 10.6 g/dL (12.0-15.5) Hematocrit 31.8 % (36.0-47.0) Mean Corpuscular Volume 84 fL (79-100) Mean Corpuscular Hemoglobin 28 pg (25-35) Mean Corpuscular Hemoglobin Concent 34 g/dL (31-37) Red Cell Distribution Width 15.3 % (11.5-14.5) Platelet Count 373 x10^3/uL (140-400) Sodium Level 143 mmol/L (136-145) Chloride Level 103 mmol/L (98-107) Carbon Dioxide Level 32 mmol/L (21-32) Anion Gap 8 (6-14) Blood Urea Nitrogen 11 mg/dL (7-20) Creatinine 0.9 mg/dL (0.6-1.0) Estimated GFR (Cockcroft-Gault) 64.1 Glucose Level 94 mg/dL (70-99) Calcium Level 8.3 mg/dL (8.5-10.1) Phosphorus Level 2.8 mg/dL (2.6-4.7) Magnesium Level 1.9 mg/dL (1.8-2.4) Laboratory Tests Test 12/03/16 12:51 12/03/16 17:54 12/03/16 20:12 12/04/16 00:06 Glucose (Fingerstick) 149 mg/dL (70-99) 107 mg/dL (70-99) 93 mg/dL (70-99) Potassium Level 2.5 mmol/L (3.5-5.1) Test 12/04/16 06:00 12/04/16 06:11 White Blood Count 10.5 x10^3/uL (4.0-11.0) Red Blood Count 3.80 x10^6/uL (3.50-5.40) Hemoglobin 10.6 g/dL (12.0-15.5) Hematocrit 31.8 % (36.0-47.0) Mean Corpuscular Volume 84 fL (79-100) Mean Corpuscular Hemoglobin 28 pg (25-35) Mean Corpuscular Hemoglobin Concent 34 g/dL (31-37) Red Cell Distribution Width 15.3 % (11.5-14.5) Platelet Count 373 x10^3/uL (140-400) Sodium Level 143 mmol/L (136-145) Potassium Level 2.7 mmol/L (3.5-5.1) Chloride Level 103 mmol/L (98-107) Carbon Dioxide Level 32 mmol/L (21-32) Anion Gap 8 (6-14) Blood Urea Nitrogen 11 mg/dL (7-20) Creatinine 0.9 mg/dL (0.6-1.0) Estimated GFR (Cockcroft-Gault) 64.1 Glucose Level 94 mg/dL (70-99) Calcium Level 8.3 mg/dL (8.5-10.1) Phosphorus Level 2.8 mg/dL (2.6-4.7) Magnesium Level 1.9 mg/dL (1.8-2.4) Glucose (Fingerstick) 96 mg/dL (70-99) Microbiology 11/30/16 Blood Culture - Preliminary, Resulted NO GROWTH AFTER 3 DAYS 12/01/16 Sputum Culture - Final, Complete 12/01/16 Sputum Result 1 - Final, Complete 12/01/16 Sputum Result 2 - Final, Complete 12/01/16 Antimicrobic Susceptibility - Final, Complete Medications Current Medications Fentanyl Citrate (Fentanyl 2ml Vial) 50 mcg PRN Q15MIN PRN IV PAIN GREATER THAN 3/10 Last administered on 11/26/16t 19:41; Start 11/26/16 at 18:00; Stop at 17:59; Status DC Sodium Chloride 1,000 ml @ 1,000 mls/hr Q1H IV Last administered on 11/26/16 18:20; Start 11/26/16 at 18:00; Stop 11/26/16 at 18:59; Status DC Ondansetron HCl (Zofran) 4 mg 1X ONCE IV Last administered on 11/26/16 18:19 ; Start 11/26/16 at 18:00; Stop 11/26/16 at 18:01; Status DC Iohexol (Omnipaque 300 Mg/ml) 60 ml 1X ONCE IV Last administered on 11/26/16 18:39; Start 11/26/16 at 18:15; Stop 11/26/16 at 18:16; Status DC Info (Do NOT chart on this entry -- for MONITORING) 1 each PRN DAILY PRN MC SEE COMMENTS; Start 11/26/16 at 18:15; Stop 11/28/16 at 18:14; Status DC Ondansetron HCl (Zofran) 4 mg PRN Q8HRS PRN IV NAUSEA/VOMITING; Start 11/26/16 at 19:45; Stop 11/27/16 at 19:44; Status DC Fentanyl Citrate (Fentanyl 2ml Vial) 50 mcg PRN Q1HR PRN IV PAIN Last administered on 11/27/16 16:15; Start 11/26/16 at 19:45; Stop 11/27/16 at 19:44 ; Status DC Sodium Chloride 1,000 ml @ 100 mls/hr Q10H IV Last administered on 11/27/16 16:17; Start 11/26/16 at 20:00; Stop 11/27/16 at 19:59; Status DC Acetaminophen (Tylenol) 650 mg PRN Q4HRS PRN PO FEVER; Start 11/26/16 at 19:45 ; Stop 11/27/16 at 19:44; Status DC Gabapentin (Neurontin) 600 mg 1X ONCE PO Last administered on 11/26/16 22:14 ; Start 11/26/16 at 21:45; Stop 11/26/16 at 21:46; Status DC Varenicline (Chantix) 1 mg 1X ONCE PO Last administered on 11/26/16 22:15; Start 11/26/16 at 21:45; Stop 11/26/16 at 21:46; Status DC Atorvastatin Calcium (Lipitor) 40 mg 1X ONCE PO Last administered on 22:15; Start 11/26/16 at 21:45; Stop 11/26/16 at 21:46; Status DC Alprazolam (Xanax) 1 mg 1X ONCE PO Last administered on 11/26/16 22:15; Start 11/26/16 at 21:45; Stop 11/26/16 at 21:46; Status DC Tizanidine HCl (Zanaflex) 4 mg 1X ONCE PO Last administered on 11/26/16 22:15 ; Start 11/26/16 at 21:45; Stop 11/26/16 at 21:46; Status DC Potassium Chloride (Klor-Con) 20 meq 1X ONCE PO Last administered on 22:14; Start 11/26/16 at 21:45; Stop 11/26/16 at 21:46; Status DC Alprazolam (Xanax) 1 mg PRN QID PRN PO ANXIETY / AGITATION Last administered on 12/04/16 03:12; Start 11/27/16 at 08:45 Aspirin (Nader Aspirin) 325 mg DAILY PO Last administered on 12/03/16 08:41; Start 11/27/16 at 09:00; Stop 12/03/16 at 12:40; Status DC Atorvastatin Calcium (Lipitor) 40 mg HS PO Last administered on 12/03/16 21:39 ; Start 11/27/16 at 21:00 Dicyclomine HCl (Bentyl) 20 mg PRN Q6HRS PRN PO GI PAIN Last administered on 03:12; Start 11/27/16 at 08:45 Furosemide (Lasix) 40 mg DAILY PO Last administered on 12/03/16 08:39; Start 11/27/16 at 09:00 Acetaminophen/ Hydrocodone Bitart (Lortab 7.5/325) 1 tab PRN Q6HRS PRN PO PAIN Last administered on 11/30/16 11:14; Start 11/27/16 at 08:45; Stop 11/30/16 at 15:03; Status DC Levothyroxine Sodium (Synthroid) 150 mcg DAILY07 PO Last administered on 06:04; Start 11/27/16 at 10:30 Magnesium Oxide (Magnesium Oxide) 400 mg QID PO Last administered on 12/03/16 21:39; Start 11/27/16 at 09:00 Tizanidine HCl (Zanaflex) 4 mg QID PO Last administered on 12/03/16 21:39; Start 11/27/16 at 09:00 Non-Formulary Medication 8.5 gm Q4HRS IH ; Start 11/27/16 at 12:00; Stop at 12:00; Status DC Vitamin D (Vitamin D3) 1,000 unit DAILY PO Last administered on 12/03/16 08:42 ; Start 11/27/16 at 09:00 Non-Formulary Medication 1 each BID IH ; Start 11/27/16 at 09:00; Stop 11/27/16 at 09:38; Status DC Gabapentin (Neurontin) 600 mg TID PO Last administered on 12/03/16 21:39; Start 11/27/16 at 09:00 Fish Oil (Fish Oil) 1,000 mg DAILY PO Last administered on 12/03/16 08:41; Start 11/27/16 at 09:00 Pantoprazole Sodium (Protonix) 40 mg DAILYAC PO Last administered on 12/04/16 06:04; Start 11/27/16 at 11:30 Potassium Chloride (Klor-Con) 20 meq TIDWMEALS PO Last administered on 18:45; Start 11/27/16 at 09:00; Stop 12/01/16 at 09:57; Status DC Vitamin E 400 unit DAILY PO Last administered on 12/03/16 08:38; Start at 09:00 Varenicline (Chantix) 1 mg BID PO Last administered on 12/03/16 21:40; Start 11/27/16 at 09:00 Albuterol Sulfate (Ventolin Neb Soln) 2.5 mg Q4HRS NEB Last administered on 23:02; Start 11/27/16 at 12:00; Stop 11/29/16 at 23:05; Status DC Budesonide (Pulmicort) 0.5 mg RTBID NEB Last administered on 12/04/16 07:04; Start 11/27/16 at 10:00 Iohexol (Omnipaque 350 Mg/ml) 300 ml 1X ONCE PO Last administered on 13:30; Start 11/27/16 at 12:45; Stop 11/27/16 at 12:48; Status DC Iohexol (Omnipaque 350 Mg/ml) 100 ml STK-MED ONCE .ROUTE ; Start 11/27/16 at 13: 04; Stop 11/27/16 at 13:05; Status DC Iohexol (Omnipaque 300 Mg/ml) 300 ml 1X ONCE PO ; Start 11/27/16 at 13:30; Stop 11/27/16 at 13:31; Status DC Info (Do NOT chart on this entry -- for MONITORING) 1 each PRN DAILY PRN MC SEE COMMENTS; Start 11/27/16 at 13:30; Stop 11/29/16 at 13:29; Status DC Iohexol (Omnipaque 350 Mg/ml) 100 ml STK-MED ONCE .ROUTE ; Start 11/27/16 at 13: 24; Stop 11/27/16 at 13:25; Status DC Ondansetron HCl (Zofran) 4 mg PRN Q6HRS PRN IV NAUSEA/VOMITING; Start 11/28/16 at 07:00; Stop 11/28/16 at 07:00; Status DC Fentanyl Citrate (Fentanyl 2ml Vial) 25 mcg PRN Q5MIN PRN IV MILD PAIN; Start 11/28/16 at 07:00; Stop 11/28/16 at 18:00; Status DC Fentanyl Citrate (Fentanyl 2ml Vial) 50 mcg PRN Q5MIN PRN IV MODERATE PAIN Last administered on 11/28/16 13:50; Start 11/28/16 at 07:00; Stop 11/28/16 at 18:00; Status DC Morphine Sulfate 1 mg PRN Q10MIN PRN IV SEVERE PAIN; Start 11/28/16 at 07:00; Stop 11/28/16 at 18:00; Status DC Ringer's Solution 1,000 ml @ 30 mls/hr Q24H IV Last administered on 11/28/16 07:47; Start 11/28/16 at 07:00; Stop 11/28/16 at 18:59; Status DC Lidocaine HCl 2 ml PRN 1X PRN ID PRIOR TO IV START; Start 11/28/16 at 07:00; Stop 11/28/16 at 18:00; Status DC Hydromorphone HCl (Dilaudid) 0.5 mg PRN Q10MIN PRN IV SEV PAIN, Second choice Last administered on 11/28/16 14:11; Start 11/28/16 at 07:00; Stop 11/28/16 at 18:00; Status DC Prochlorperazine Edisylate (Compazine) 5 mg PACU PRN PRN IV NAUSEA, MRX1 Last administered on 11/28/16 13:42; Start 11/28/16 at 07:00; Stop 11/28/16 at 18:00 ; Status DC Cefoxitin Sodium 2 gm/Sodium Chloride 100 ml @ 200 mls/hr 1X PREOP IV ; Start 11/27/16 at 19:15; Stop 11/27/16 at 19:15; Status DC Cefoxitin Sodium 2 gm/Sodium Chloride 100 ml @ 200 mls/hr 1X PREOP ONCE IV Last administered on 11/28/16 09:15; Start 11/28/16 at 06:00; Stop 11/28/16 at 06:29; Status DC Fentanyl Citrate (Fentanyl 2ml Vial) 50 mcg PRN Q2HR PRN IV SEVERE PAIN Last administered on 12/02/16 19:58; Start 11/27/16 at 23:00; Stop 12/02/16 at 20:17 ; Status DC Fentanyl Citrate (Fentanyl 2ml Vial) 25 mcg PRN Q2HR PRN IV MODERATE PAIN Last administered on 12/04/16 03:14; Start 11/27/16 at 23:00 Ondansetron HCl (Zofran) 4 mg PRN Q6HRS PRN IV NAUSEA/VOMITING; Start 11/28/16 at 03:45; Status Cancel Ondansetron HCl (Zofran) 4 mg PRN Q6HRS PRN IV NAUSEA/VOMITING Last administered on 11/29/16 12:25; Start 11/28/16 at 04:00; Stop 11/29/16 at 14:02 ; Status DC Ondansetron HCl (Zofran) 4 mg PRN Q6HRS PRN IV NAUSEA/VOMITING; Start 11/28/16 at 07:00; Stop 11/28/16 at 19:00; Status DC Bupivacaine HCl/ Epinephrine Bitart (Marcaine-Epi 0.5%-[id number]) 50 ml STK-MED ONCE .ROUTE ; Start 11/28/16 at 07:52; Stop 11/28/16 at 07:53; Status DC Fentanyl Citrate (Fentanyl 2ml Vial) 100 mcg STK-MED ONCE .ROUTE ; Start at 08:39; Stop 11/28/16 at 08:40; Status DC Rocuronium Homeland (Zemuron) 100 mg STK-MED ONCE .ROUTE ; Start 11/28/16 at 08: 39; Stop 11/28/16 at 08:40; Status DC Cefoxitin Sodium 100 ml @ As Directed STK-MED ONCE IV ; Start 11/28/16 at 08:39 ; Stop 11/28/16 at 08:40; Status DC Dexamethasone Sodium Phosphate (Decadron) 20 mg STK-MED ONCE .ROUTE ; Start at 08:39; Stop 11/28/16 at 08:40; Status DC Ondansetron HCl (Zofran) 4 mg STK-MED ONCE .ROUTE ; Start 11/28/16 at 08:39; Stop 11/28/16 at 08:40; Status DC Propofol 20 ml @ As Directed STK-MED ONCE IV ; Start 11/28/16 at 08:39; Stop at 08:40; Status DC Lidocaine HCl (Lidocaine Pf 2% Vial) 5 ml STK-MED ONCE .ROUTE ; Start 11/28/16 at 08:39; Stop 11/28/16 at 08:40; Status DC Midazolam HCl (Versed) 2 mg STK-MED ONCE .ROUTE ; Start 11/28/16 at 09:00; Stop 11/28/16 at 09:01; Status DC Fentanyl Citrate (Fentanyl 5ml Vial) 250 mcg STK-MED ONCE .ROUTE ; Start at 09:28; Stop 11/28/16 at 09:29; Status DC Sevoflurane (Ultane) 90 ml STK-MED ONCE IH ; Start 11/28/16 at 09:59; Stop 11/28 at 10:00; Status DC Glycopyrrolate (Robinul) 1 mg STK-MED ONCE .ROUTE ; Start 11/28/16 at 12:18; Stop 11/28/16 at 12:19; Status DC Neostigmine Methylsulfate (Bloxiverz) 10 mg STK-MED ONCE .ROUTE ; Start at 12:18; Stop 11/28/16 at 12:19; Status DC Fentanyl Citrate (Fentanyl 2ml Vial) 100 mcg STK-MED ONCE .ROUTE ; Start at 13:16; Stop 11/28/16 at 13:17; Status DC Hydromorphone HCl (Dilaudid) 2 mg STK-MED ONCE .ROUTE ; Start 11/28/16 at 13:27 ; Stop 11/28/16 at 13:28; Status DC Enoxaparin Sodium (Lovenox 40mg Syringe) 40 mg Q24H SQ Last administered on 08:26; Start 11/29/16 at 08:00; Stop 11/30/16 at 21:30; Status DC Sodium Chloride (Normal Saline Flush) 3 ml QSHIFT PRN IV AFTER MEDS AND BLOOD DRAWS; Start 11/28/16 at 13:30 Ringer's Solution 1,000 ml @ 100 mls/hr Q10H IV ; Start 11/28/16 at 13:26; Stop 11/30/16 at 10:52; Status DC Naloxone HCl (Narcan) 0.4 mg PRN Q2MIN PRN IV SEE INSTRUCTIONS; Start 11/28/16 at 13:30 Sodium Chloride 1,000 ml @ 25 mls/hr Q24H IV Last administered on 11/30/16 05 :55; Start 11/28/16 at 13:26; Stop 11/30/16 at 10:52; Status DC Hydromorphone HCl 30 ml @ 0 mls/hr CONT PRN PRN IV PROTOCOL Last administered on 11/29/16 18:35; Start 11/28/16 at 13:30; Stop 11/30/16 at 10:52; Status DC Ondansetron HCl (Zofran) 4 mg PRN Q6HRS PRN IV NAUESA, 1ST CHOICE Last administered on 12/04/16 05:31; Start 11/28/16 at 13:30 Fentanyl Citrate (Fentanyl 2ml Vial) 100 mcg STK-MED ONCE .ROUTE ; Start at 13:36; Stop 11/28/16 at 13:37; Status DC Prochlorperazine Edisylate (Compazine) 10 mg STK-MED ONCE .ROUTE ; Start at 13:37; Stop 11/28/16 at 13:38; Status DC Ibuprofen (Motrin) 200 mg PRN Q6HRS PRN PO INFLAMMATION Last administered on 23:11; Start 11/29/16 at 08:30 Albuterol Sulfate (Ventolin Neb Soln) 2.5 mg RTQID NEB Last administered on 16:33; Start 11/30/16 at 08:00; Stop 11/30/16 at 17:18; Status DC Acetaminophen/ Hydrocodone Bitart (Lortab 7.5/325) 1 tab PRN Q6HRS PRN PO PAIN Last administered on 12/02/16 16:03; Start 11/30/16 at 15:15 Acetaminophen/ Hydrocodone Bitart (Lortab 7.5/325) 2 tab PRN Q6HRS PRN PO PAIN Last administered on 12/04/16 06:04; Start 11/30/16 at 15:15 Albuterol Sulfate (Ventolin Neb Soln) 2.5 mg RTQID NEB ; Start 11/30/16 at 20:00 ; Stop 11/30/16 at 20:00; Status DC Albuterol Sulfate (Ventolin Neb Soln) 2.5 mg PRN QID PRN NEB SHORTNESS OF BREATH Last administered on 11/30/16 17:35; Start 11/30/16 at 17:20 Piperacillin Sod/ Tazobactam Sod 3.375 gm/Sodium Chloride 50 ml @ 100 mls/hr Q6HRS IV Last administered on 12/01/16 05:41; Start 11/30/16 at 18:00; Stop at 11:07; Status DC Acetaminophen (Acetaminophen Supp) 650 mg PRN Q6HRS PRN [place] MILD PAIN / TEMP; Start 11/30/16 at 17:30 Iohexol (Omnipaque 300 Mg/ml) 75 ml 1X ONCE IV Last administered on 9/16/17at 17:46; Start 11/30/16 at 17:45; Stop 11/30/16 at 17:46; Status DC Acetaminophen (Tylenol) 650 mg PRN Q6HRS PRN PO FEVER > 101 Last administered on 11/30/16 18:44; Start 11/30/16 at 17:30 Info (Do NOT chart on this entry -- for MONITORING) 1 each PRN DAILY PRN MC SEE COMMENTS; Start 11/30/16 at 17:45; Stop 12/02/16 at 17:44; Status DC Vancomycin HCl 1 gm/Sodium Chloride 250 ml @ 250 mls/hr 1X STAT IV ; Start at 18:19; Stop 11/30/16 at 19:18; Status UNV Budesonide (Pulmicort) 0.5 mg RTBID NEB ; Start 11/30/16 at 20:00; Stop at 20:56; Status DC Vancomycin HCl 1 gm/Sodium Chloride 250 ml @ 250 mls/hr 1X ONCE IV Last administered on 11/30/16 20:36; Start 11/30/16 at 18:45; Stop 11/30/16 at 19:44 ; Status DC Norepinephrine Bitartrate 250 ml @ As Directed STK-MED ONCE IV ; Start at 19:52; Stop 11/30/16 at 19:53; Status DC Rocuronium Homeland (Zemuron) 50 mg STK-MED ONCE .ROUTE ; Start 11/30/16 at 20:00 ; Stop 11/30/16 at 20:01; Status DC Propofol 100 ml @ As Directed STK-MED ONCE IV ; Start 11/30/16 at 20:20; Stop 11/30/16 at 20:21; Status DC Hydrocortisone Sodium Succinate (Solu-CORTEF) 50 mg Q6HRS IV Last administered on 12/01/16 05:42; Start 11/30/16 at 20:15; Stop 12/01/16 at 08:11; Status DC Norepinephrine Bitartrate 250 ml @ 0 mls/hr CONT PRN IV SEE I/O RECORD Last administered on 11/30/16 20:38; Start 11/30/16 at 20:15; Stop 12/03/16 at 11:23 ; Status DC Sodium Chloride 1,000 ml @ 1,000 mls/hr 1X ONCE IV Last administered on 20:40; Start 11/30/16 at 20:15; Stop 11/30/16 at 21:14; Status DC Sodium Chloride 1,000 ml @ 1,000 mls/hr 1X ONCE IV Last administered on 20:37; Start 11/30/16 at 20:15; Stop 11/30/16 at 21:14; Status DC Sodium Chloride 1,000 ml @ 1,000 mls/hr 1X ONCE IV Last administered on 20:36; Start 11/30/16 at 20:15; Stop 11/30/16 at 21:14; Status DC Propofol 100 ml @ 0 mls/hr CONT PRN IV SEE I/O RECORD Last administered on 12/02 15:57; Start 11/30/16 at 20:15; Stop 12/03/16 at 11:23; Status DC Albuterol Sulfate (Ventolin Neb Soln) 2.5 mg RTQID NEB Last administered on 07:04; Start 12/01/16 at 08:00 Heparin Sodium (Porcine) (Heparin Sodium) 7,750 unit 1X ONCE IV Last administered on 11/30/16 21:55; Start 11/30/16 at 22:00; Stop 11/30/16 at 22:01 ; Status DC Heparin Sodium/ Dextrose 500 ml @ 0 mls/hr CONT PRN IV SEE I/O RECORD Last administered on 12/03/16 01:28; Start 11/30/16 at 21:30; Stop 12/03/16 at 08:37 ; Status DC Heparin Sodium (Porcine) (Heparin Sodium) 2,900 unit PRN Q6HRS PRN IV FOR UFH LEVEL LESS THAN 0.2; Start 11/30/16 at 21:30; Stop 12/03/16 at 08:37; Status DC Heparin Sodium (Porcine) (Heparin Sodium) 1,450 unit PRN Q6HRS PRN IV FOR UFH LEVEL 0.2 - 0.29 Last administered on 12/01/16 17:29; Start 11/30/16 at 21:30; Stop 12/03/16 at 08:37; Status DC Rocuronium Homeland (Zemuron) 50 mg 1X ONCE IV Last administered on 11/30/16 20:05; Start 12/01/16 at 04:45; Stop 12/01/16 at 04:46; Status DC Hydrocortisone Sodium Succinate (Solu-CORTEF) 50 mg Q8HRS IV Last administered on 12/03/16 05:52; Start 12/01/16 at 14:00; Stop 12/03/16 at 10:52; Status DC Famotidine (Pepcid) 20 mg BID IVP Last administered on 12/03/16 08:42; Start 12/01/16 at 10:00; Stop 12/03/16 at 11:19; Status DC Potassium Chloride (KCl Oral Soln) 20 meq 1X ONCE PEG Last administered on 10:05; Start 12/01/16 at 10:00; Stop 12/01/16 at 10:01; Status DC Vancomycin HCl (Vanco Per Pharmacy) 1 each PRN DAILY PRN MC SEE COMMENTS Last administered on 12/03/16 09:35; Start 12/01/16 at 10:15 Vancomycin HCl 1.5 gm/Sodium Chloride 500 ml @ 250 mls/hr Q12H IV Last administered on 12/03/16 23:09; Start 12/01/16 at 10:30 Vancomycin HCl 1 each 1X ONCE MC Last administered on 12/02/16 22:00; Start 12/02/16 at 22:00; Stop 12/02/16 at 22:01; Status DC Piperacillin Sod/ Tazobactam Sod 4.5 gm/Sodium Chloride 100 ml @ 200 mls/hr Q6HRS IV Last administered on 12/04/16 05:31; Start 12/01/16 at 12:00 Etomidate (Amidate) 20 mg STK-MED ONCE IV ; Start 11/30/16 at 12:00; Stop at 05:57; Status DC Furosemide (Lasix) 20 mg 1X PRN PRN IV Blood transfusion Last administered on 15:56; Start 12/02/16 at 08:00; Stop 12/03/16 at 07:59; Status DC Sodium Chloride 70 meq/Potassium Acetate 70 meq/ Potassium Phosphate 13.6 mmol/ Magnesium Sulfate 10 meq/ Calcium Gluconate 10 meq/ Multivitamins 10 ml/Chromium / Copper/Manganese/ Seleni/Zn 1 ml/ Total Parenteral Nutrition/Amino Acids/ Dextrose 1,512 ml @ 62.999 mls/ hr TPN CONT IV ; Start 12/02/16 at 22:00; Stop 12/03/16 at 10:44; Status DC Info 1 each PRN DAILY PRN MC SEE COMMENTS Last administered on 12/02/16 14:50 ; Start 12/02/16 at 14:00; Stop 12/03/16 at 10:45; Status DC Midazolam HCl 100 ml @ 0 mls/hr CONT PRN IV SEE I/O RECORD; Start 12/02/16 at 15:15; Stop 12/03/16 at 11:23; Status DC Amino Acids/ Glycerin/ Electrolytes 1,000 ml @ 80 mls/hr [id number] IV Last administered on 12/04/16 05:30; Start 12/02/16 at 18:00 Sodium Bicarbonate 50 meq 1X ONCE IV Last administered on 12/02/16 20:12; Start 12/02/16 at 19:45; Stop 12/02/16 at 19:46; Status DC Fentanyl Citrate (Fentanyl 2ml Vial) 100 mcg PRN Q2HR PRN IV SEVERE PAIN Last administered on 12/03/16 12:36; Start 12/02/16 at 20:15 Lorazepam (Ativan) 1 mg PRN Q6HRS PRN IV ANXIETY / AGITATION Last administered on 12/03/16 21:42; Start 12/02/16 at 20:15 Insulin Aspart (NovoLOG) 0-5 UNITS Q6HRS SQ Last administered on 12/03/16 08: 03; Start 12/03/16 at 12:00 Dextrose (Dextrose 50%-Water Syringe) 12.5 gm PRN Q15MIN PRN IV SEE COMMENTS; Start 12/03/16 at 06:30 Potassium Chloride 100 ml @ 100 mls/hr PRN Q1HR PRN IV HYPOKALEMIA; Start at 06:30 Potassium Chloride 100 ml @ 100 mls/hr PRN Q1HR PRN IV HYPOKALEMIA; Start at 06:30 Potassium Chloride 100 ml @ 100 mls/hr PRN Q1HR PRN IV K<2.5 Last administered on 12/03/16 18:04; Start 12/03/16 at 06:30 Enoxaparin Sodium (Lovenox Per Pharmacy Treatment Dosing) 1 each PRN DAILY PRN MC SEE COMMENTS; Start 12/03/16 at 08:45; Stop 12/03/16 at 16:42; Status DC Enoxaparin Sodium (Lovenox 100mg Syringe) 100 mg Q12HR SQ ; Start 12/03/16 at 09 :00; Stop 12/03/16 at 16:42; Status DC Info (Anti-Coagulation Monitoring By Pharmacy) 1 each PRN DAILY PRN MC SEE COMMENTS Last administered on 12/03/16 09:36; Start 12/03/16 at 08:45 Prednisone (Prednisone) 20 mg DAILY PO ; Start 12/05/16 at 09:00; Stop 12/06/16 at 09:01 Prednisone (Prednisone) 10 mg DAILY PO ; Start 12/07/16 at 09:00; Stop 12/08/16 at 09:01 Prednisone (Prednisone) 5 mg DAILY PO ; Start 12/09/16 at 09:00; Stop 12/10/16 at 09:01 Pantoprazole Sodium (Protonix) 40 mg DAILYAC PO ; Start 12/04/16 at 07:30; Status UNV Aspirin (Ecotrin) 81 mg DAILYWBKFT PO ; Start 12/04/16 at 08:00 Apixaban (Eliquis) 10 mg BID PO Last administered on 12/03/16 21:40; Start at 21:00; Stop 12/10/16 at 09:01 Apixaban (Eliquis) 5 mg BID PO ; Start 12/10/16 at 21:00 Potassium Chloride 100 ml @ 100 mls/hr Q1H IV ; Start 12/04/16 at 08:00; Stop 12/04/16 at 11:59 Active Scripts Active Hydrocodone-Apap 7.5-325 (Hydrocodone Bit/Acetaminophen) 1 Each Tablet 1 Tab PO PRN Q6HRS PRN 30 Days Levothyroxine Sodium 150 Mcg Tablet 1 Tab PO DAILY Bentyl (Dicyclomine Hcl) 10 Mg Capsule 20 Mg PO Q6HRS Reported Chantix (Varenicline Tartrate) 1 Mg Tablet 1 Mg PO BID Atorvastatin Calcium 20 Mg Tablet 40 Mg PO HS Vitamin D (Cholecalciferol (Vitamin D3)) 1,000 Unit Capsule 1,000 Unit PO DAILY Vitamin E 400 Unit Capsule 400 Unit PO DAILY Fish Oil ([place]-3 Fatty Acids) 500 Mg Capsule 500 Mg PO DAILY Magnesium Oxide 400 Mg Tablet 400 Mg PO QID Xanax (Alprazolam) 1 Mg Tablet 1 Mg PO QID Lasix (Furosemide) 40 Mg Tablet 40 Mg PO DAILY Aspirin 325 Mg Tablet 325 Mg PO DAILY Gabapentin 600 Mg Tablet 600 Mg PO TID Tizanidine Hcl 4 Mg Tablet 4 Mg PO QID Estradiol 1 Each Patch.tdwk 1 Each TD DAILY07 Omeprazole 20 Mg Tablet.dr 20 Mg PO DAILY07 Klor-Con (Potassium Chloride) 20 Meq Packet 20 Meq PO TID Proair Hfa Inhaler (Albuterol Sulfate) 8.5 Gm Hfa.aer.ad 8.5 Gm IH Q4HRS Advair 500-50 Diskus (Fluticasone/Salmeterol) 1 Each Disk.w.dev 1 Each IH BID Vitals/I & O Vital Sign - Last 24 Hours 12/03/16 12/03/16 12/03/16 12/03/16 09:00 09:50 11:04 11:48 Pulse 58 60 Resp 20 B/P (MAP) 145/68 (93) 126/61 (82) Pulse Ox 98 98 95 97 O2 Delivery Nasal Cannula Nasal Cannula Nasal Cannula O2 Flow Rate 4.0 4.0 4.0 4.0 12/03/16 12/03/16 12/03/16 12/03/16 12:00 12:00 12:36 13:00 Temp 98.6 98.6 Pulse 70 Resp 23 B/P (MAP) 121/56 (77) Pulse Ox 95 96 96 O2 Delivery Nasal Cannula Nasal Cannula Nasal Cannula Nasal Cannula O2 Flow Rate 4.0 4.0 4.0 4.0 12/03/16 12/03/16 12/03/16 12/03/16 13:00 14:00 15:00 16:00 Pulse 52 64 54 54 Resp 18 21 21 22 B/P (MAP) 133/66 (88) 122/57 (78) 137/65 (89) 139/66 (90) Pulse Ox 97 98 98 98 O2 Delivery Nasal Cannula Nasal Cannula Nasal Cannula Nasal Cannula O2 Flow Rate 4.0 4.0 4.0 4.0 12/03/16 12/03/16 12/03/16 12/03/16 16:00 16:34 16:59 17:30 Temp 97.9 97.9 Pulse 54 Resp 20 B/P (MAP) 140/69 (92) Pulse Ox 96 96 97 O2 Delivery Nasal Cannula Nasal Cannula Nasal Cannula Nasal Cannula O2 Flow Rate 4.0 4.0 4.0 4.0 12/03/16 12/03/16 12/03/16 12/03/16 17:59 18:16 19:48 19:57 Temp 97.5 97.5 Pulse 66 Resp 16 16 18 B/P (MAP) 122/57 (78) Pulse Ox 99 95 O2 Delivery Room Air Nasal Cannula Nasal Cannula Nasal Cannula O2 Flow Rate 4.0 4.0 12/03/16 12/03/16 12/03/16 12/04/16 20:00 21:37 23:21 03:14 Temp 97.7 97.7 Pulse 52 Resp 18 18 18 B/P (MAP) 169/75 (106) Pulse Ox 96 O2 Delivery Nasal Cannula Nasal Cannula Nasal Cannula Nasal Cannula O2 Flow Rate 4.0 4.0 4.0 12/04/16 12/04/16 12/04/16 12/04/16 03:21 04:00 06:04 07:00 Temp 97.9 97.6 97.9 97.6 Pulse 55 76 Resp 18 18 16 18 B/P (MAP) 153/78 (103) 118/64 (82) Pulse Ox 97 95 O2 Delivery Nasal Cannula Nasal Cannula Nasal Cannula Nasal Cannula O2 Flow Rate 4.0 4.0 12/04/16 07:16 Pulse Ox 99 O2 Delivery Nasal Cannula O2 Flow Rate 3.0 NICOLAS HICKS MD Dec 04, 2016 08:59
[2016-12-04] MEDS: POTASSIUM CHLORIDE 10MEQ 100 ML IV SCH ×4 (09:05→13:45)
[2016-12-04] MEDS: VARENICLINE 0.5 MG TABLET. PO SCH ×2 (09:05→19:58)
[2016-12-04] MEDS: APIXABAN 5 MG TABLET. PO SCH ×2 (09:06→19:59)
[2016-12-04] MEDS: GABAPENTIN 300 MG CAPSULE. PO SCH ×3 (09:06→19:59)
[2016-12-04] MEDS: CHOLECALCIFEROL (VITAMIN D3) 1,000 UNIT TABLET PO SCH (09:06)
[2016-12-04] MEDS: OMEGA-3 FATTY ACIDS/FISH OIL 1,000 MG CAPSULE. PO SCH (09:07)
[2016-12-04] MEDS: FUROSEMIDE 40 MG TABLET. PO SCH (09:07)
[2016-12-04] MEDS: IBUPROFEN 200 MG TABLET. PO PRN (09:07)
[2016-12-04] MEDS: ASPIRIN ENTERIC COATED 81 MG TABLET.DR. PO SCH (09:07)
[2016-12-04] MEDS: VITAMIN E 200 UNIT CAPSULE. PO SCH (09:07)
[2016-12-04] MEDS: tiZANidine 4 MG TABLET. PO SCH ×4 (09:07→19:59)
[2016-12-04] MEDS: MAGNESIUM OXIDE 400 MG TABLET PO SCH ×4 (09:08→19:59)
--- NOTE | 2016-12-04 09:52 | PDOC ---
LILLIAM BLACKMAN DEPUTY EDITOR IN CHIEF 12/04/16 0952: CARDIO Progress Notes Date and Time Date of Service 12/04/2016 Time of Evaluation 0940 Subjective Subjective: No Chest Pain, No shortness of breath, No Palpitations Vitals Vitals Vital Signs Date Time Temp Pulse Resp B/P (MAP) Pulse Ox O2 Delivery O2 Flow Rate FiO2 12/04/16 09:01 18 95 Nasal Cannula 12/04/16 07:16 3.0 12/04/16 07:00 97.6 76 118/64 (82) 97.6 Weight Weight [ ] Laboratory Labs Laboratory Tests Test 12/03/16 12:51 12/03/16 17:54 12/03/16 20:12 12/04/16 00:06 Glucose (Fingerstick) 149 mg/dL (70-99) 107 mg/dL (70-99) 93 mg/dL (70-99) Potassium Level 2.5 mmol/L (3.5-5.1) Test 12/04/16 06:00 12/04/16 06:11 White Blood Count 10.5 x10^3/uL (4.0-11.0) Red Blood Count 3.80 x10^6/uL (3.50-5.40) Hemoglobin 10.6 g/dL (12.0-15.5) Hematocrit 31.8 % (36.0-47.0) Mean Corpuscular Volume 84 fL (79-100) Mean Corpuscular Hemoglobin 28 pg (25-35) Mean Corpuscular Hemoglobin Concent 34 g/dL (31-37) Red Cell Distribution Width 15.3 % (11.5-14.5) Platelet Count 373 x10^3/uL (140-400) Sodium Level 143 mmol/L (136-145) Potassium Level 2.7 mmol/L (3.5-5.1) Chloride Level 103 mmol/L (98-107) Carbon Dioxide Level 32 mmol/L (21-32) Anion Gap 8 (6-14) Blood Urea Nitrogen 11 mg/dL (7-20) Creatinine 0.9 mg/dL (0.6-1.0) Estimated GFR (Cockcroft-Gault) 64.1 Glucose Level 94 mg/dL (70-99) Calcium Level 8.3 mg/dL (8.5-10.1) Phosphorus Level 2.8 mg/dL (2.6-4.7) Magnesium Level 1.9 mg/dL (1.8-2.4) Glucose (Fingerstick) 96 mg/dL (70-99) Microbiology Micro Microbiology 11/30/16 Blood Culture - Preliminary, Resulted NO GROWTH AFTER 3 DAYS 12/01/16 Sputum Culture - Final, Complete 12/01/16 Sputum Result 1 - Final, Complete 12/01/16 Sputum Result 2 - Final, Complete 12/01/16 Antimicrobic Susceptibility - Final, Complete Physical Exam HEENT: Neck Supple W Full Motion Chest: Symmetric LUNGS: Other (left basilar crackles) Heart: S1S2, RRR (not on tele monitor) Abdomen: Soft N/T, Other (abdominal; surgical incision well approximated, colostomy in placed) Extremities: No Calf Tenderness Neurology: alert, oriented, follow commands Assessment Assessment 1. Abdominal pain with S/P ExLap with multiple repair as noted 2. Acute respiratory failure: resolved SOA 3. Notable for RUL PE (new) and AECOPD/possible pneumonia: Pulmonary following 4. Asymptomatic sinus bradycardia: HR 50-60s per V/S, pt not on tele monitor overnight and will replace. 5. PAFIB: no episodes in ICU. No on any rate controlling meds per outpt med review and per pt. QTc 474 6. CAD: cardiac arrest in 2006 and eventual PCI/stent. Last stress test 6-8 months ago. 7. Hypokalemia: per PCP 8. Hypothyroidism Recommendations 1. Still awaiting cardiology records 2. Replace K per PCP. Continue home statin. 3. Continue with 81 mg ECASA. Eliquis now in place per pulmonary 4. Will plan for MCOT to ascertain AFIB burden for any indication of further therapy otherwise at this time treat extracardiac conditions, no pacemaker indication. 6. Consider starting on ACEi or ARB per BP trend and will reeval need as an outpt. 7. Will update once old records is available otherwise will follow as needed. 8. Follow up in our office once MCOT is completed. PACO QUIGLEY MD 12/04/16 8901: CARDIO Progress Notes Assessment Assessment Patient seen and examined. Agree with AIR TURNING MACHINE FEEDER's assessment and plan. Sinus bradycardia most probably vasovagal Plan for outpatient event monitor to rule out any significant arrhythmias LILLIAM BLACKMAN DEPUTY EDITOR IN CHIEF Dec 04, 2016 09:52 PACO QUIGLEY MD Dec 04, 2016 16:15
[2016-12-04 11:00] VITALS: BP 111/60
--- NOTE | 2016-12-04 11:12 | PDOC ---
Subjective: Subjective: Pain "isn't good." Tolerating PO w/o issue. Objective: Objective: Per RN - ostomy functioning. Vital Signs: Vital Signs Date Time Temp Pulse Resp B/P (MAP) Pulse Ox O2 Delivery O2 Flow Rate FiO2 12/04/16 09:31 18 96 Nasal Cannula 2.0 12/04/16 07:00 97.6 76 118/64 (82) 97.6 Labs: Laboratory Tests Test 12/03/16 12:51 12/03/16 17:54 12/03/16 20:12 12/04/16 00:06 Glucose (Fingerstick) 149 mg/dL 107 mg/dL 93 mg/dL Potassium Level 2.5 mmol/L Test 12/04/16 06:00 12/04/16 06:11 White Blood Count 10.5 x10^3/uL Red Blood Count 3.80 x10^6/uL Hemoglobin 10.6 g/dL Hematocrit 31.8 % Mean Corpuscular Volume 84 fL Mean Corpuscular Hemoglobin 28 pg Mean Corpuscular Hemoglobin Concent 34 g/dL Red Cell Distribution Width 15.3 % Platelet Count 373 x10^3/uL Sodium Level 143 mmol/L Potassium Level 2.7 mmol/L Chloride Level 103 mmol/L Carbon Dioxide Level 32 mmol/L Anion Gap 8 Blood Urea Nitrogen 11 mg/dL Creatinine 0.9 mg/dL Estimated GFR (Cockcroft-Gault) 64.1 Glucose Level 94 mg/dL Calcium Level 8.3 mg/dL Phosphorus Level 2.8 mg/dL Magnesium Level 1.9 mg/dL Glucose (Fingerstick) 96 mg/dL Imaging: Echocardiogram 12/03/16 <Conclusion> Left ventricle systolic function is normal. The Ejection Fraction is 60-65%. There is normal LV segmental wall motion. Doppler and Color Flow revealed trace to mild tricuspid regurgitation. The PA pressure was estimated at 24 mmHg. Limited TTE only for LV function and RVSP. PE: GEN: NAD LUNGS: clear HEART: RRR ABD: soft, ostomy w/ liquid stool NEURO/PSYCH: A & O 3, depressed A/P: S/p hernia repairs w/ chronic pain PE - on Eliquis Anemia - improved/stable Hypokalemia -- Continue same per GI. VIJAY BRIONES Dec 04, 2016 11:12
--- NOTE | 2016-12-04 11:22 | PDOC ---
SURGICAL PROGRESS NOTE Subjective Pt with c/o pain, bethany PO, good ostomy output Vital Signs Vital Signs Date Time Temp Pulse Resp B/P (MAP) Pulse Ox O2 Delivery O2 Flow Rate FiO2 12/04/16 11:17 99 Nasal Cannula 3.0 12/04/16 09:31 18 12/04/16 07:00 97.6 76 118/64 (82) 97.6 General: Alert, Oriented X3, Cooperative, mild distress Abdomen: Soft, No tenderness, Other (incisions c/d/i with graciela drains) Labs Laboratory Tests Test 12/02/16 15:30 12/02/16 18:50 12/02/16 19:32 12/02/16 22:15 Troponin I Quantitative < 0.017 ng/mL (0.000-0.055) White Blood Count 15.0 x10^3/uL (4.0-11.0) Red Blood Count 3.74 x10^6/uL (3.50-5.40) Hemoglobin 10.4 g/dL (12.0-15.5) Hematocrit 31.6 % (36.0-47.0) Mean Corpuscular Volume 85 fL (79-100) Mean Corpuscular Hemoglobin 28 pg (25-35) Mean Corpuscular Hemoglobin Concent 33 g/dL (31-37) Red Cell Distribution Width 15.4 % (11.5-14.5) Platelet Count 341 x10^3/uL (140-400) O2 Saturation 97 % (92-99) Arterial Blood pH 7.51 (7.35-7.45) Arterial Blood pCO2 at Patient Temp 30 mmHg (35-46) Arterial Blood pO2 at Patient Temp 88 mmHg (65-108) Arterial Blood HCO3 24 mmol/L (21-28) Arterial Blood Base Excess 1 mmol/L (-3-3) FiO2 35 Vancomycin Level Trough 18.7 mcg/mL (10.0-20.0) Vancomycin Last Dose Date Vancomycin Last Dose Time Test 12/03/16 05:20 12/03/16 08:15 12/03/16 12:51 12/03/16 17:54 White Blood Count 13.9 x10^3/uL (4.0-11.0) Red Blood Count 3.60 x10^6/uL (3.50-5.40) Hemoglobin 10.0 g/dL (12.0-15.5) Hematocrit 29.9 % (36.0-47.0) Mean Corpuscular Volume 83 fL (79-100) Mean Corpuscular Hemoglobin 28 pg (25-35) Mean Corpuscular Hemoglobin Concent 33 g/dL (31-37) Red Cell Distribution Width 15.0 % (11.5-14.5) Platelet Count 323 x10^3/uL (140-400) Sodium Level 139 mmol/L (136-145) Potassium Level 2.5 mmol/L (3.5-5.1) Chloride Level 97 mmol/L (98-107) Carbon Dioxide Level 28 mmol/L (21-32) Anion Gap 14 (6-14) Blood Urea Nitrogen 13 mg/dL (7-20) Creatinine 0.9 mg/dL (0.6-1.0) Estimated GFR (Cockcroft-Gault) 64.1 Glucose Level 332 mg/dL (70-99) Calcium Level 8.0 mg/dL (8.5-10.1) Phosphorus Level 5.8 mg/dL (2.6-4.7) Magnesium Level 1.9 mg/dL (1.8-2.4) Triglycerides Level 195 mg/dL (0-150) Thyroid Stimulating Hormone (TSH) 0.094 uIU/mL (0.358-3.74) Heparin Anti-Xa Act, Unfractionated > 1.10 IU/mL (0.30-0.70) Glucose (Fingerstick) 149 mg/dL (70-99) 107 mg/dL (70-99) Test 12/03/16 20:12 12/04/16 00:06 12/04/16 06:00 12/04/16 06:11 Potassium Level 2.5 mmol/L (3.5-5.1) 2.7 mmol/L (3.5-5.1) Glucose (Fingerstick) 93 mg/dL (70-99) 96 mg/dL (70-99) White Blood Count 10.5 x10^3/uL (4.0-11.0) Red Blood Count 3.80 x10^6/uL (3.50-5.40) Hemoglobin 10.6 g/dL (12.0-15.5) Hematocrit 31.8 % (36.0-47.0) Mean Corpuscular Volume 84 fL (79-100) Mean Corpuscular Hemoglobin 28 pg (25-35) Mean Corpuscular Hemoglobin Concent 34 g/dL (31-37) Red Cell Distribution Width 15.3 % (11.5-14.5) Platelet Count 373 x10^3/uL (140-400) Sodium Level 143 mmol/L (136-145) Chloride Level 103 mmol/L (98-107) Carbon Dioxide Level 32 mmol/L (21-32) Anion Gap 8 (6-14) Blood Urea Nitrogen 11 mg/dL (7-20) Creatinine 0.9 mg/dL (0.6-1.0) Estimated GFR (Cockcroft-Gault) 64.1 Glucose Level 94 mg/dL (70-99) Calcium Level 8.3 mg/dL (8.5-10.1) Phosphorus Level 2.8 mg/dL (2.6-4.7) Magnesium Level 1.9 mg/dL (1.8-2.4) Laboratory Tests Test 12/03/16 12:51 12/03/16 17:54 12/03/16 20:12 12/04/16 00:06 Glucose (Fingerstick) 149 mg/dL (70-99) 107 mg/dL (70-99) 93 mg/dL (70-99) Potassium Level 2.5 mmol/L (3.5-5.1) Test 12/04/16 06:00 12/04/16 06:11 White Blood Count 10.5 x10^3/uL (4.0-11.0) Red Blood Count 3.80 x10^6/uL (3.50-5.40) Hemoglobin 10.6 g/dL (12.0-15.5) Hematocrit 31.8 % (36.0-47.0) Mean Corpuscular Volume 84 fL (79-100) Mean Corpuscular Hemoglobin 28 pg (25-35) Mean Corpuscular Hemoglobin Concent 34 g/dL (31-37) Red Cell Distribution Width 15.3 % (11.5-14.5) Platelet Count 373 x10^3/uL (140-400) Sodium Level 143 mmol/L (136-145) Potassium Level 2.7 mmol/L (3.5-5.1) Chloride Level 103 mmol/L (98-107) Carbon Dioxide Level 32 mmol/L (21-32) Anion Gap 8 (6-14) Blood Urea Nitrogen 11 mg/dL (7-20) Creatinine 0.9 mg/dL (0.6-1.0) Estimated GFR (Cockcroft-Gault) 64.1 Glucose Level 94 mg/dL (70-99) Calcium Level 8.3 mg/dL (8.5-10.1) Phosphorus Level 2.8 mg/dL (2.6-4.7) Magnesium Level 1.9 mg/dL (1.8-2.4) Glucose (Fingerstick) 96 mg/dL (70-99) Problem List Problems Medical Problems: (1) Abdominal pain Status: Acute Assessment/Plan s/p hernia repair ADAT pain control per primary Problems: LETICIA KAUFFMAN MD Dec 04, 2016 11:22
[2016-12-04] MEDS: POTASSIUM CHLORIDE 20 MEQ TABLET.ER. PO SCH ×3 (12:26→18:11)
[2016-12-04] MEDS: CIPROFLOXACIN HCL 250 MG TABLET. PO SCH ×2 (12:26→19:58)
[2016-12-04] MEDS: LINEZOLID 600 MG TABLET PO SCH ×2 (12:27→19:58)
[2016-12-04] MEDS: ACETAMINOPHEN 325 MG TABLET. PO PRN (12:42)
--- NOTE | 2016-12-04 14:17 | PDOC ---
PULMONARY PROGRESS NOTES Subjective extubated 12/02 doing well on canula Vitals Vital Signs Date Time Temp Pulse Resp B/P (MAP) Pulse Ox O2 Delivery O2 Flow Rate FiO2 12/04/16 13:43 16 91 Room Air 12/04/16 11:17 3.0 12/04/16 07:00 97.6 76 118/64 (82) 97.6 General: Alert, No acute distress Lungs: Other (decrease bs) Cardiovascular: S1 Abdomen: Soft, Other (colostomy bag wit hno blood) Neuro Exam: Alert Extremities: No Edema Skin: Warm Labs Laboratory Tests Test 12/02/16 15:30 12/02/16 18:50 12/02/16 19:32 12/02/16 22:15 Troponin I Quantitative < 0.017 ng/mL (0.000-0.055) White Blood Count 15.0 x10^3/uL (4.0-11.0) Red Blood Count 3.74 x10^6/uL (3.50-5.40) Hemoglobin 10.4 g/dL (12.0-15.5) Hematocrit 31.6 % (36.0-47.0) Mean Corpuscular Volume 85 fL (79-100) Mean Corpuscular Hemoglobin 28 pg (25-35) Mean Corpuscular Hemoglobin Concent 33 g/dL (31-37) Red Cell Distribution Width 15.4 % (11.5-14.5) Platelet Count 341 x10^3/uL (140-400) O2 Saturation 97 % (92-99) Arterial Blood pH 7.51 (7.35-7.45) Arterial Blood pCO2 at Patient Temp 30 mmHg (35-46) Arterial Blood pO2 at Patient Temp 88 mmHg (65-108) Arterial Blood HCO3 24 mmol/L (21-28) Arterial Blood Base Excess 1 mmol/L (-3-3) FiO2 35 Vancomycin Level Trough 18.7 mcg/mL (10.0-20.0) Vancomycin Last Dose Date Vancomycin Last Dose Time Test 12/03/16 05:20 12/03/16 08:15 12/03/16 12:51 12/03/16 17:54 White Blood Count 13.9 x10^3/uL (4.0-11.0) Red Blood Count 3.60 x10^6/uL (3.50-5.40) Hemoglobin 10.0 g/dL (12.0-15.5) Hematocrit 29.9 % (36.0-47.0) Mean Corpuscular Volume 83 fL (79-100) Mean Corpuscular Hemoglobin 28 pg (25-35) Mean Corpuscular Hemoglobin Concent 33 g/dL (31-37) Red Cell Distribution Width 15.0 % (11.5-14.5) Platelet Count 323 x10^3/uL (140-400) Sodium Level 139 mmol/L (136-145) Potassium Level 2.5 mmol/L (3.5-5.1) Chloride Level 97 mmol/L (98-107) Carbon Dioxide Level 28 mmol/L (21-32) Anion Gap 14 (6-14) Blood Urea Nitrogen 13 mg/dL (7-20) Creatinine 0.9 mg/dL (0.6-1.0) Estimated GFR (Cockcroft-Gault) 64.1 Glucose Level 332 mg/dL (70-99) Calcium Level 8.0 mg/dL (8.5-10.1) Phosphorus Level 5.8 mg/dL (2.6-4.7) Magnesium Level 1.9 mg/dL (1.8-2.4) Triglycerides Level 195 mg/dL (0-150) Thyroid Stimulating Hormone (TSH) 0.094 uIU/mL (0.358-3.74) Heparin Anti-Xa Act, Unfractionated > 1.10 IU/mL (0.30-0.70) Glucose (Fingerstick) 149 mg/dL (70-99) 107 mg/dL (70-99) Test 12/03/16 20:12 12/04/16 00:06 12/04/16 06:00 12/04/16 06:11 Potassium Level 2.5 mmol/L (3.5-5.1) 2.7 mmol/L (3.5-5.1) Glucose (Fingerstick) 93 mg/dL (70-99) 96 mg/dL (70-99) White Blood Count 10.5 x10^3/uL (4.0-11.0) Red Blood Count 3.80 x10^6/uL (3.50-5.40) Hemoglobin 10.6 g/dL (12.0-15.5) Hematocrit 31.8 % (36.0-47.0) Mean Corpuscular Volume 84 fL (79-100) Mean Corpuscular Hemoglobin 28 pg (25-35) Mean Corpuscular Hemoglobin Concent 34 g/dL (31-37) Red Cell Distribution Width 15.3 % (11.5-14.5) Platelet Count 373 x10^3/uL (140-400) Sodium Level 143 mmol/L (136-145) Chloride Level 103 mmol/L (98-107) Carbon Dioxide Level 32 mmol/L (21-32) Anion Gap 8 (6-14) Blood Urea Nitrogen 11 mg/dL (7-20) Creatinine 0.9 mg/dL (0.6-1.0) Estimated GFR (Cockcroft-Gault) 64.1 Glucose Level 94 mg/dL (70-99) Calcium Level 8.3 mg/dL (8.5-10.1) Phosphorus Level 2.8 mg/dL (2.6-4.7) Magnesium Level 1.9 mg/dL (1.8-2.4) Test 12/04/16 12:21 Glucose (Fingerstick) 110 mg/dL (70-99) Laboratory Tests Test 12/03/16 17:54 12/03/16 20:12 12/04/16 00:06 12/04/16 06:00 Glucose (Fingerstick) 107 mg/dL (70-99) 93 mg/dL (70-99) Potassium Level 2.5 mmol/L (3.5-5.1) 2.7 mmol/L (3.5-5.1) White Blood Count 10.5 x10^3/uL (4.0-11.0) Red Blood Count 3.80 x10^6/uL (3.50-5.40) Hemoglobin 10.6 g/dL (12.0-15.5) Hematocrit 31.8 % (36.0-47.0) Mean Corpuscular Volume 84 fL (79-100) Mean Corpuscular Hemoglobin 28 pg (25-35) Mean Corpuscular Hemoglobin Concent 34 g/dL (31-37) Red Cell Distribution Width 15.3 % (11.5-14.5) Platelet Count 373 x10^3/uL (140-400) Sodium Level 143 mmol/L (136-145) Chloride Level 103 mmol/L (98-107) Carbon Dioxide Level 32 mmol/L (21-32) Anion Gap 8 (6-14) Blood Urea Nitrogen 11 mg/dL (7-20) Creatinine 0.9 mg/dL (0.6-1.0) Estimated GFR (Cockcroft-Gault) 64.1 Glucose Level 94 mg/dL (70-99) Calcium Level 8.3 mg/dL (8.5-10.1) Phosphorus Level 2.8 mg/dL (2.6-4.7) Magnesium Level 1.9 mg/dL (1.8-2.4) Test 12/04/16 06:11 12/04/16 12:21 Glucose (Fingerstick) 96 mg/dL (70-99) 110 mg/dL (70-99) Medications Active Scripts Medications Dose Route/Sig Max Daily Dose Days Date Category Hydrocodone-Apap 7.5-325 (Hydrocodone Bit/Acetaminophen) 1 Each Tablet 1 Tab PO PRN Q6HRS PRN 30 11/27/16 Rx Levothyroxine Sodium 150 Mcg Tablet 1 Tab PO DAILY 11/27/16 Rx Chantix (Varenicline Tartrate) 1 Mg Tablet 1 Mg PO BID 11/26/16 Reported Bentyl (Dicyclomine Hcl) 10 Mg Capsule 20 Mg PO Q6HRS 11/24/14 Rx Atorvastatin Calcium 20 Mg Tablet 40 Mg PO HS 04/26/13 Reported Vitamin D (Cholecalciferol (Vitamin D3)) 1,000 Unit Capsule 1,000 Unit PO DAILY 04/26/13 Reported Vitamin E 400 Unit Capsule 400 Unit PO DAILY 04/26/13 Reported Fish Oil ([place]-3 Fatty Acids) 500 Mg Capsule 500 Mg PO DAILY 04/26/13 Reported Magnesium Oxide 400 Mg Tablet 400 Mg PO QID 04/26/13 Reported Xanax (Alprazolam) 1 Mg Tablet 1 Mg PO QID 04/26/13 Reported Lasix (Furosemide) 40 Mg Tablet 40 Mg PO DAILY 04/26/13 Reported Aspirin 325 Mg Tablet 325 Mg PO DAILY 04/26/13 Reported Gabapentin 600 Mg Tablet 600 Mg PO TID 04/26/13 Reported Tizanidine Hcl 4 Mg Tablet 4 Mg PO QID 04/26/13 Reported Estradiol 1 Each Patch.tdwk 1 Each TD DAILY07 04/26/13 Reported Omeprazole 20 Mg Tablet.dr 20 Mg PO DAILY07 04/26/13 Reported Klor-Con (Potassium Chloride) 20 Meq Packet 20 Meq PO TID 04/26/13 Reported Proair Hfa Inhaler (Albuterol Sulfate) 8.5 Gm Hfa.aer.ad 8.5 Gm IH Q4HRS 04/26/13 Reported Advair 500-50 Diskus (Fluticasone/Salmeterol) 1 Each Disk.w.dev 1 Each IH BID 04/26/[address] ABD/PELVIS no obvious bleed Impression . 1. Acute respiratory failure, multifactorial in etiology including bacterial pneumonia (hcap, aspiration), septic shock, underlying chronic obstructive pulmonary disease with acute exacerbation, extubated 12/03. Doing well on canula 2. Abnormal chest x-ray and CT of the chest with mild GG infiltrates and LLL consolidation 3. s/p septic shock, 4. Pulmonary embolism. (small RUL? clinical significance) 5. Status post exploratory laparotomy and revision of ileostomy. 6. Leukocytosis. 7. Coronary artery disease. 8. Obesity. 9. Anemia, no obvious blood loss, improved post TX, neg ct abd/pelvis Plan . 1. Nasal canula. 2. oral nutrition 3. replace K 4. Continue Pulmicort./nebs 5. jayden Cummins'd .changed to PO steroids 6. Continue Protonix. 7. started on Eliquis.( PE is not so clinically significant). probably 6 weeks of AC sufficient 8. Elevate head of bed. 9. Pt eval/Rx MARQUIS COVARRUBIAS MD Dec 04, 2016 14:17
[2016-12-04 15:00] VITALS: BP 116/70
[2016-12-04] MEDS: ANTI-COAG MONITOR BY PHARMACY. MC PRN (15:30)
[2016-12-04 19:00] VITALS: BP 109/64
[2016-12-04] MEDS: ATORVASTATIN CALCIUM 20 MG TABLET PO SCH (19:59)
[2016-12-04 23:00] VITALS: BP 128/69
[2016-12-05] MEDS: fentaNYL PF VIAL 100 MCG/2 ML VIAL IV PRN ×3 (02:38→08:52)
[2016-12-05 03:00] VITALS: BP 143/78
[2016-12-05] MEDS: PANTOPRAZOLE 40 MG TABLET.DR. PO SCH (03:43)
[2016-12-05] MEDS: LEVOTHYROXINE 150 MCG TABLET PO SCH (03:43)
[2016-12-05] MEDS: ONDANSETRON PF 4 MG/2 ML VIAL. IV PRN (03:43)
[2016-12-05 04:40] LABS: CALCIUM 8.4 mg/dL (8.5-10.1); CREATININE 0.7 mg/dL (0.6-1.0); GFR 85.6; POTASSIUM 3.3 mmol/L (3.5-5.1)
[2016-12-05 04:45] LABS: MAGNESIUM 1.9 mg/dL (1.8-2.4); PHOSPHORUS 2.8 mg/dL (2.6-4.7)
[2016-12-05] MEDS: INSULIN ASPART 300 UNITS/3 ML INSULN.PEN SQ SCH ×3 (06:00→18:00)
[2016-12-05] MEDS: BUDESONIDE 0.5 MG/2 ML NEBU. NEB SCH ×2 (06:58→19:51)
[2016-12-05] MEDS: ALBUTEROL SULFATE 2.5 MG/3 ML NEBU. NEB SCH ×4 (06:58→19:51)
[2016-12-05 07:00] VITALS: BP 154/88
[2016-12-05] MEDS: VARENICLINE 0.5 MG TABLET. PO SCH ×2 (08:08→20:46)
[2016-12-05] MEDS: VITAMIN E 200 UNIT CAPSULE. PO SCH (08:08)
[2016-12-05] MEDS: OMEGA-3 FATTY ACIDS/FISH OIL 1,000 MG CAPSULE. PO SCH (08:09)
[2016-12-05] MEDS: LINEZOLID 600 MG TABLET PO SCH ×2 (08:09→20:48)
[2016-12-05] MEDS: predniSONE 20 MG TABLET PO SCH (08:09)
[2016-12-05] MEDS: APIXABAN 5 MG TABLET. PO SCH ×2 (08:09→20:48)
[2016-12-05] MEDS: ALPRAZolam 1 MG TABLET PO PRN ×2 (08:09→16:15)
[2016-12-05] MEDS: tiZANidine 4 MG TABLET. PO SCH ×4 (08:09→20:47)
[2016-12-05] MEDS: CIPROFLOXACIN HCL 250 MG TABLET. PO SCH ×2 (08:09→20:48)
[2016-12-05] MEDS: GABAPENTIN 300 MG CAPSULE. PO SCH ×3 (08:09→20:47)
[2016-12-05] MEDS: FUROSEMIDE 40 MG TABLET. PO SCH (08:10)
[2016-12-05] MEDS: POTASSIUM CHLORIDE 20 MEQ TABLET.ER. PO SCH ×3 (08:10→16:16)
[2016-12-05] MEDS: ASPIRIN ENTERIC COATED 81 MG TABLET.DR. PO SCH (08:10)
[2016-12-05] MEDS: CHOLECALCIFEROL (VITAMIN D3) 1,000 UNIT TABLET PO SCH (08:10)
[2016-12-05] MEDS: MAGNESIUM OXIDE 400 MG TABLET PO SCH ×4 (08:10→20:47)
--- NOTE | 2016-12-05 09:43 | PDOC ---
Infectious Disease Note Subjective Subjective feeling better, abd pain + but says ready to go home ROS ROS GEN: Denies fevers, chills, sweats HEENT: Denies blurred vision, sore throat CV: Denies chest pain RESP: Denies shortness of air, cough GI: Denies n/v/d NEURO: Denies confusion, dizziness MSK: Denies weakness, joint pain/swelling Vital Sign Vital Signs Vital Signs Date Time Temp Pulse Resp B/P (MAP) Pulse Ox O2 Delivery O2 Flow Rate FiO2 12/05/16 08:52 Nasal Cannula 2.0 12/05/16 07:09 97 12/05/16 07:00 97.6 87 20 154/88 (110) 97.6 Physical Exam PHYSICAL EXAM GENERAL: NAD, Alert HEENT: PERRL, OC/OP NECK: Supple, no JVD, no LN LUNGS: Clear HEART: S1S2, no gallop, no murmur ABD: Soft, NT, no organomegaly, no rebound, incision good EXT: No edema, no cyanosis MEAT GRINDER: Alert, 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, no focal neurologic deficit SKIN: No rash IV: ok Labs Lab Laboratory Tests Test 12/04/16 12:21 12/04/16 18:24 12/04/16 23:31 12/05/16 03:30 Glucose (Fingerstick) 110 mg/dL (70-99) 145 mg/dL (70-99) 77 mg/dL (70-99) Sodium Level 139 mmol/L (136-145) Potassium Level 3.3 mmol/L (3.5-5.1) Chloride Level 102 mmol/L (98-107) Carbon Dioxide Level 30 mmol/L (21-32) Anion Gap 7 (6-14) Blood Urea Nitrogen 9 mg/dL (7-20) Creatinine 0.7 mg/dL (0.6-1.0) Estimated GFR (Cockcroft-Gault) 85.6 Glucose Level 90 mg/dL (70-99) Calcium Level 8.4 mg/dL (8.5-10.1) Phosphorus Level 2.8 mg/dL (2.6-4.7) Magnesium Level 1.9 mg/dL (1.8-2.4) Test 12/05/16 06:11 Glucose (Fingerstick) 90 mg/dL (70-99) Micro BC neg SPUTUM CULTURE-LC Final Final report The Directory of Services listing for this report is "Lower Respiratory Culture", test number 056968. This title and test code number are being discontinued effective 2016. For sputum culture in the future, use the Directory of Services listing "Gram Stain Evaluation With Sputum Culture Reflex", test number 095608. For culture of lower respiratory specimens other than expectorated sputum in the future, [facility] will offer "Lower Respiratory Culture, Other than Expectorated Sputum", test number 420158. SPUTUM CULT RES 1 Final Serratia marcescens Moderate growth SPUTUM CULT RES 2 Final Comment Methicillin - resistant Staphylococcus aureus Moderate growth Based on resistance to oxacillin this isolate would be resistant to all currently available beta-lactam antimicrobial agents, with the exception of the newer cephalosporins with anti-MRSA activity, such as Ceftaroline ANTIMICROBIAL SUSCEPTIBILITY Final Comment S = Susceptible; I = Intermediate; R = Resistant P = Positive; N = Negative MICS are expressed in micrograms per mL Antibiotic RSLT#1 RSLT#2 RSLT#3 RSLT#4 Amoxicillin/Clavulanic Acid R CONTINUED ON NEXT PAGE RUN DATE: 12/03/16 PAGE 2 RUN TIME: 1322 [facility] [address] [place] [address] James Awan M.D., [employer] SPEC: [id number] PATIENT: BELLA ROACH [id number] ( Continued) Procedure Result ANTIMICROBIAL SUSCEPTIBILITY Final (continued) Cefazolin R Cefepime S Ceftriaxone S Cefuroxime R Ciprofloxacin S R Clindamycin S Ertapenem S Erythromycin R Gentamicin S S Imipenem S Levofloxacin S I Linezolid S Oxacillin R Penicillin R Piperacillin S Rifampin S Tetracycline S S Tobramycin S Trimethoprim/Sulfa S S Vancomycin S Performed at: [address] [id number] Regulatory Compliance Coordinator: Judie Harris MD, Phone: [phone] Objective Assessment Fever Leukocytosis Aspiration/HCAP Respiratory failure S/P colostomy revision Plan Plan of Care cipro and zyvox po supportive care d/w dr Leon d/avery smith d/c [facility] BONNIE CANADA MD Dec 05, 2016 09:43
--- NOTE | 2016-12-05 09:56 | PDOC ---
PROGRESS NOTES Subjective Subjective Patient states she wants to go home. Still asking for IV pain meds frequently. Objective Objective Vital Signs Date Time Temp Pulse Resp B/P (MAP) Pulse Ox O2 Delivery O2 Flow Rate FiO2 12/05/16 08:52 Nasal Cannula 2.0 12/05/16 07:09 97 12/05/16 07:00 97.6 87 20 154/88 (110) 97.6 Physical Exam Abdomen: Normal bowel sounds, Soft, Other (good output in colostomy bag) Heart: Regular rate Extremities: No edema General: Alert, Oriented X3, No acute distress Lungs: Other (BS decreased throughout but otherwise CTA) Assessment Assessment Problems Medical Problems: (1) Abdominal pain Status: Acute Plan Plan of Care 1. Acute respiratory failure with pneumonia and COPD - much improved. Now on po abx per ID. Continue present tx, wean O2 as tolerated. Anticipate discharge tomorrow if all in agreement. 2. POD #7 hernia repair - doing well, tolerating regular diet, good colostomy output. 3. PE's - now on Eliquis per pharmacy substitution. Continue for 6 weeks per Pulmonary suggestion. 4. hypokalemia - improving, continue po supplement. Patient having good diuresis with her usual Lasix daily. 5. chronic anxiety - continue po meds. 6. chronic pain - discontinue IV meds, continue her usual po meds. Patient well aware that she cannot go home on IV meds. 7. debility - improving, continue therapies, patient to be out of bed as much as possible. 8. chronic urinary retention - discontinue [place] today, straight cath as needed. Comment Review of Relevant I have reviewed the following items chris (where applicable) has been applied. Labs Laboratory Tests Test 12/03/16 12:51 12/03/16 17:54 12/03/16 20:12 12/04/16 00:06 Glucose (Fingerstick) 149 mg/dL (70-99) 107 mg/dL (70-99) 93 mg/dL (70-99) Potassium Level 2.5 mmol/L (3.5-5.1) Test 12/04/16 06:00 12/04/16 06:11 12/04/16 12:21 12/04/16 18:24 White Blood Count 10.5 x10^3/uL (4.0-11.0) Red Blood Count 3.80 x10^6/uL (3.50-5.40) Hemoglobin 10.6 g/dL (12.0-15.5) Hematocrit 31.8 % (36.0-47.0) Mean Corpuscular Volume 84 fL (79-100) Mean Corpuscular Hemoglobin 28 pg (25-35) Mean Corpuscular Hemoglobin Concent 34 g/dL (31-37) Red Cell Distribution Width 15.3 % (11.5-14.5) Platelet Count 373 x10^3/uL (140-400) Sodium Level 143 mmol/L (136-145) Potassium Level 2.7 mmol/L (3.5-5.1) Chloride Level 103 mmol/L (98-107) Carbon Dioxide Level 32 mmol/L (21-32) Anion Gap 8 (6-14) Blood Urea Nitrogen 11 mg/dL (7-20) Creatinine 0.9 mg/dL (0.6-1.0) Estimated GFR (Cockcroft-Gault) 64.1 Glucose Level 94 mg/dL (70-99) Calcium Level 8.3 mg/dL (8.5-10.1) Phosphorus Level 2.8 mg/dL (2.6-4.7) Magnesium Level 1.9 mg/dL (1.8-2.4) Glucose (Fingerstick) 96 mg/dL (70-99) 110 mg/dL (70-99) 145 mg/dL (70-99) Test 12/04/16 23:31 12/05/16 03:30 12/05/16 06:11 Glucose (Fingerstick) 77 mg/dL (70-99) 90 mg/dL (70-99) Sodium Level 139 mmol/L (136-145) Potassium Level 3.3 mmol/L (3.5-5.1) Chloride Level 102 mmol/L (98-107) Carbon Dioxide Level 30 mmol/L (21-32) Anion Gap 7 (6-14) Blood Urea Nitrogen 9 mg/dL (7-20) Creatinine 0.7 mg/dL (0.6-1.0) Estimated GFR (Cockcroft-Gault) 85.6 Glucose Level 90 mg/dL (70-99) Calcium Level 8.4 mg/dL (8.5-10.1) Phosphorus Level 2.8 mg/dL (2.6-4.7) Magnesium Level 1.9 mg/dL (1.8-2.4) Laboratory Tests Test 12/04/16 12:21 12/04/16 18:24 12/04/16 23:31 12/05/16 03:30 Glucose (Fingerstick) 110 mg/dL (70-99) 145 mg/dL (70-99) 77 mg/dL (70-99) Sodium Level 139 mmol/L (136-145) Potassium Level 3.3 mmol/L (3.5-5.1) Chloride Level 102 mmol/L (98-107) Carbon Dioxide Level 30 mmol/L (21-32) Anion Gap 7 (6-14) Blood Urea Nitrogen 9 mg/dL (7-20) Creatinine 0.7 mg/dL (0.6-1.0) Estimated GFR (Cockcroft-Gault) 85.6 Glucose Level 90 mg/dL (70-99) Calcium Level 8.4 mg/dL (8.5-10.1) Phosphorus Level 2.8 mg/dL (2.6-4.7) Magnesium Level 1.9 mg/dL (1.8-2.4) Test 12/05/16 06:11 Glucose (Fingerstick) 90 mg/dL (70-99) Microbiology 11/30/16 Blood Culture - Preliminary, Resulted NO GROWTH AFTER 4 DAYS 12/01/16 Sputum Culture - Final, Complete 12/01/16 Sputum Result 1 - Final, Complete 12/01/16 Sputum Result 2 - Final, Complete 12/01/16 Antimicrobic Susceptibility - Final, Complete Medications Current Medications Fentanyl Citrate (Fentanyl 2ml Vial) 50 mcg PRN Q15MIN PRN IV PAIN GREATER THAN 3/10 Last administered on 11/26/16 19:41; Start 11/26/16 at 18:00; Stop at 17:59; Status DC Sodium Chloride 1,000 ml @ 1,000 mls/hr Q1H IV Last administered on 11/26/16 18:20; Start 11/26/16 at 18:00; Stop 11/26/16 at 18:59; Status DC Ondansetron HCl (Zofran) 4 mg 1X ONCE IV Last administered on 11/26/16 18:19 ; Start 11/26/16 at 18:00; Stop 11/26/16 at 18:01; Status DC Iohexol (Omnipaque 300 Mg/ml) 60 ml 1X ONCE IV Last administered on 11/26/16 18:39; Start 11/26/16 at 18:15; Stop 11/26/16 at 18:16; Status DC Info (Do NOT chart on this entry -- for MONITORING) 1 each PRN DAILY PRN MC SEE COMMENTS; Start 11/26/16 at 18:15; Stop 11/28/16 at 18:14; Status DC Ondansetron HCl (Zofran) 4 mg PRN Q8HRS PRN IV NAUSEA/VOMITING; Start 11/26/16 at 19:45; Stop 11/27/16 at 19:44; Status DC Fentanyl Citrate (Fentanyl 2ml Vial) 50 mcg PRN Q1HR PRN IV PAIN Last administered on 11/27/16 16:15; Start 11/26/16 at 19:45; Stop 11/27/16 at 19:44 ; Status DC Sodium Chloride 1,000 ml @ 100 mls/hr Q10H IV Last administered on 11/27/16 16:17; Start 11/26/16 at 20:00; Stop 11/27/16 at 19:59; Status DC Acetaminophen (Tylenol) 650 mg PRN Q4HRS PRN PO FEVER; Start 11/26/16 at 19:45 ; Stop 11/27/16 at 19:44; Status DC Gabapentin (Neurontin) 600 mg 1X ONCE PO Last administered on 11/26/16 22:14 ; Start 11/26/16 at 21:45; Stop 11/26/16 at 21:46; Status DC Varenicline (Chantix) 1 mg 1X ONCE PO Last administered on 11/26/16 22:15; Start 11/26/16 at 21:45; Stop 11/26/16 at 21:46; Status DC Atorvastatin Calcium (Lipitor) 40 mg 1X ONCE PO Last administered on 22:15; Start 11/26/16 at 21:45; Stop 11/26/16 at 21:46; Status DC Alprazolam (Xanax) 1 mg 1X ONCE PO Last administered on 11/26/16 22:15; Start 11/26/16 at 21:45; Stop 11/26/16 at 21:46; Status DC Tizanidine HCl (Zanaflex) 4 mg 1X ONCE PO Last administered on 11/26/16 22:15 ; Start 11/26/16 at 21:45; Stop 11/26/16 at 21:46; Status DC Potassium Chloride (Klor-Con) 20 meq 1X ONCE PO Last administered on 22:14; Start 11/26/16 at 21:45; Stop 11/26/16 at 21:46; Status DC Alprazolam (Xanax) 1 mg PRN QID PRN PO ANXIETY / AGITATION Last administered on 12/05/16 08:09; Start 11/27/16 at 08:45 Aspirin (Nader Aspirin) 325 mg DAILY PO Last administered on 12/03/16 08:41; Start 11/27/16 at 09:00; Stop 12/03/16 at 12:40; Status DC Atorvastatin Calcium (Lipitor) 40 mg HS PO Last administered on 12/04/16 19:59 ; Start 11/27/16 at 21:00 Dicyclomine HCl (Bentyl) 20 mg PRN Q6HRS PRN PO GI PAIN Last administered on 09:05; Start 11/27/16 at 08:45 Furosemide (Lasix) 40 mg DAILY PO Last administered on 12/05/16 08:10; Start 11/27/16 at 09:00 Acetaminophen/ Hydrocodone Bitart (Lortab 7.5/325) 1 tab PRN Q6HRS PRN PO PAIN Last administered on 11/30/16 11:14; Start 11/27/16 at 08:45; Stop 11/30/16 at 15:03; Status DC Levothyroxine Sodium (Synthroid) 150 mcg DAILY07 PO Last administered on 03:43; Start 11/27/16 at 10:30 Magnesium Oxide (Magnesium Oxide) 400 mg QID PO Last administered on 12/05/16 08:10; Start 11/27/16 at 09:00 Tizanidine HCl (Zanaflex) 4 mg QID PO Last administered on 12/05/16 08:09; Start 11/27/16 at 09:00 Non-Formulary Medication 8.5 gm Q4HRS IH ; Start 11/27/16 at 12:00; Stop at 12:00; Status DC Vitamin D (Vitamin D3) 1,000 unit DAILY PO Last administered on 12/05/16 08:10 ; Start 11/27/16 at 09:00 Non-Formulary Medication 1 each BID IH ; Start 11/27/16 at 09:00; Stop 11/27/16 at 09:38; Status DC Gabapentin (Neurontin) 600 mg TID PO Last administered on 12/05/16 08:09; Start 11/27/16 at 09:00 Fish Oil (Fish Oil) 1,000 mg DAILY PO Last administered on 12/05/16 08:09; Start 11/27/16 at 09:00 Pantoprazole Sodium (Protonix) 40 mg DAILYAC PO Last administered on 12/05/16 03:43; Start 11/27/16 at 11:30 Potassium Chloride (Klor-Con) 20 meq TIDWMEALS PO Last administered on 18:45; Start 11/27/16 at 09:00; Stop 12/01/16 at 09:57; Status DC Vitamin E 400 unit DAILY PO Last administered on 12/05/16 08:08; Start at 09:00 Varenicline (Chantix) 1 mg BID PO Last administered on 12/05/16 08:08; Start 11/27/16 at 09:00 Albuterol Sulfate (Ventolin Neb Soln) 2.5 mg Q4HRS NEB Last administered on 23:02; Start 11/27/16 at 12:00; Stop 11/29/16 at 23:05; Status DC Budesonide (Pulmicort) 0.5 mg RTBID NEB Last administered on 12/05/16 06:58; Start 11/27/16 at 10:00 Iohexol (Omnipaque 350 Mg/ml) 300 ml 1X ONCE PO Last administered on 13:30; Start 11/27/16 at 12:45; Stop 11/27/16 at 12:48; Status DC Iohexol (Omnipaque 350 Mg/ml) 100 ml STK-MED ONCE .ROUTE ; Start 11/27/16 at 13: 04; Stop 11/27/16 at 13:05; Status DC Iohexol (Omnipaque 300 Mg/ml) 300 ml 1X ONCE PO ; Start 11/27/16 at 13:30; Stop 11/27/16 at 13:31; Status DC Info (Do NOT chart on this entry -- for MONITORING) 1 each PRN DAILY PRN MC SEE COMMENTS; Start 11/27/16 at 13:30; Stop 11/29/16 at 13:29; Status DC Iohexol (Omnipaque 350 Mg/ml) 100 ml STK-MED ONCE .ROUTE ; Start 11/27/16 at 13: 24; Stop 11/27/16 at 13:25; Status DC Ondansetron HCl (Zofran) 4 mg PRN Q6HRS PRN IV NAUSEA/VOMITING; Start 11/28/16 at 07:00; Stop 11/28/16 at 07:00; Status DC Fentanyl Citrate (Fentanyl 2ml Vial) 25 mcg PRN Q5MIN PRN IV MILD PAIN; Start 11/28/16 at 07:00; Stop 11/28/16 at 18:00; Status DC Fentanyl Citrate (Fentanyl 2ml Vial) 50 mcg PRN Q5MIN PRN IV MODERATE PAIN Last administered on 11/28/16 13:50; Start 11/28/16 at 07:00; Stop 11/28/16 at 18:00; Status DC Morphine Sulfate 1 mg PRN Q10MIN PRN IV SEVERE PAIN; Start 11/28/16 at 07:00; Stop 11/28/16 at 18:00; Status DC Ringer's Solution 1,000 ml @ 30 mls/hr Q24H IV Last administered on 11/28/16 07:47; Start 11/28/16 at 07:00; Stop 11/28/16 at 18:59; Status DC Lidocaine HCl 2 ml PRN 1X PRN ID PRIOR TO IV START; Start 11/28/16 at 07:00; Stop 11/28/16 at 18:00; Status DC Hydromorphone HCl (Dilaudid) 0.5 mg PRN Q10MIN PRN IV SEV PAIN, Second choice Last administered on 11/28/16 14:11; Start 11/28/16 at 07:00; Stop 11/28/16 at 18:00; Status DC Prochlorperazine Edisylate (Compazine) 5 mg PACU PRN PRN IV NAUSEA, MRX1 Last administered on 11/28/16 13:42; Start 11/28/16 at 07:00; Stop 11/28/16 at 18:00 ; Status DC Cefoxitin Sodium 2 gm/Sodium Chloride 100 ml @ 200 mls/hr 1X PREOP IV ; Start 11/27/16 at 19:15; Stop 11/27/16 at 19:15; Status DC Cefoxitin Sodium 2 gm/Sodium Chloride 100 ml @ 200 mls/hr 1X PREOP ONCE IV Last administered on 11/28/16 09:15; Start 11/28/16 at 06:00; Stop 11/28/16 at 06:29; Status DC Fentanyl Citrate (Fentanyl 2ml Vial) 50 mcg PRN Q2HR PRN IV SEVERE PAIN Last administered on 12/02/16 19:58; Start 11/27/16 at 23:00; Stop 12/02/16 at 20:17 ; Status DC Fentanyl Citrate (Fentanyl 2ml Vial) 25 mcg PRN Q2HR PRN IV MODERATE PAIN Last administered on 12/05/16 08:52; Start 11/27/16 at 23:00 Ondansetron HCl (Zofran) 4 mg PRN Q6HRS PRN IV NAUSEA/VOMITING; Start 11/28/16 at 03:45; Status Cancel Ondansetron HCl (Zofran) 4 mg PRN Q6HRS PRN IV NAUSEA/VOMITING Last administered on 11/29/16 12:25; Start 11/28/16 at 04:00; Stop 11/29/16 at 14:02 ; Status DC Ondansetron HCl (Zofran) 4 mg PRN Q6HRS PRN IV NAUSEA/VOMITING; Start 11/28/16 at 07:00; Stop 11/28/16 at 19:00; Status DC Bupivacaine HCl/ Epinephrine Bitart (Marcaine-Epi 0.5%-[id number]) 50 ml STK-MED ONCE .ROUTE ; Start 11/28/16 at 07:52; Stop 11/28/16 at 07:53; Status DC Fentanyl Citrate (Fentanyl 2ml Vial) 100 mcg STK-MED ONCE .ROUTE ; Start at 08:39; Stop 11/28/16 at 08:40; Status DC Rocuronium [place] (Zemuron) 100 mg STK-MED ONCE .ROUTE ; Start 11/28/16 at 08: 39; Stop 11/28/16 at 08:40; Status DC Cefoxitin Sodium 100 ml @ As Directed STK-MED ONCE IV ; Start 11/28/16 at 08:39 ; Stop 11/28/16 at 08:40; Status DC Dexamethasone Sodium Phosphate (Decadron) 20 mg STK-MED ONCE .ROUTE ; Start at 08:39; Stop 11/28/16 at 08:40; Status DC Ondansetron HCl (Zofran) 4 mg STK-MED ONCE .ROUTE ; Start 11/28/16 at 08:39; Stop 11/28/16 at 08:40; Status DC Propofol 20 ml @ As Directed STK-MED ONCE IV ; Start 11/28/16 at 08:39; Stop at 08:40; Status DC Lidocaine HCl (Lidocaine Pf 2% Vial) 5 ml STK-MED ONCE .ROUTE ; Start 11/28/16 at 08:39; Stop 11/28/16 at 08:40; Status DC Midazolam HCl (Versed) 2 mg STK-MED ONCE .ROUTE ; Start 11/28/16 at 09:00; Stop 11/28/16 at 09:01; Status DC Fentanyl Citrate (Fentanyl 5ml Vial) 250 mcg STK-MED ONCE .ROUTE ; Start at 09:28; Stop 11/28/16 at 09:29; Status DC Sevoflurane (Ultane) 90 ml STK-MED ONCE IH ; Start 11/28/16 at 09:59; Stop 11/28 at 10:00; Status DC Glycopyrrolate (Robinul) 1 mg STK-MED ONCE .ROUTE ; Start 11/28/16 at 12:18; Stop 11/28/16 at 12:19; Status DC Neostigmine Methylsulfate (Bloxiverz) 10 mg STK-MED ONCE .ROUTE ; Start at 12:18; Stop 11/28/16 at 12:19; Status DC Fentanyl Citrate (Fentanyl 2ml Vial) 100 mcg STK-MED ONCE .ROUTE ; Start at 13:16; Stop 11/28/16 at 13:17; Status DC Hydromorphone HCl (Dilaudid) 2 mg STK-MED ONCE .ROUTE ; Start 11/28/16 at 13:27 ; Stop 11/28/16 at 13:28; Status DC Enoxaparin Sodium (Lovenox 40mg Syringe) 40 mg Q24H SQ Last administered on 08:26; Start 11/29/16 at 08:00; Stop 11/30/16 at 21:30; Status DC Sodium Chloride (Normal Saline Flush) 3 ml QSHIFT PRN IV AFTER MEDS AND BLOOD DRAWS; Start 11/28/16 at 13:30 Ringer's Solution 1,000 ml @ 100 mls/hr Q10H IV ; Start 11/28/16 at 13:26; Stop 11/30/16 at 10:52; Status DC Naloxone HCl (Narcan) 0.4 mg PRN Q2MIN PRN IV SEE INSTRUCTIONS; Start 11/28/16 at 13:30 Sodium Chloride 1,000 ml @ 25 mls/hr Q24H IV Last administered on 11/30/16 05 :55; Start 11/28/16 at 13:26; Stop 11/30/16 at 10:52; Status DC Hydromorphone HCl 30 ml @ 0 mls/hr CONT PRN PRN IV PROTOCOL Last administered on 11/29/16 18:35; Start 11/28/16 at 13:30; Stop 11/30/16 at 10:52; Status DC Ondansetron HCl (Zofran) 4 mg PRN Q6HRS PRN IV NAUESA, 1ST CHOICE Last administered on 12/05/16 03:43; Start 11/28/16 at 13:30 Fentanyl Citrate (Fentanyl 2ml Vial) 100 mcg STK-MED ONCE .ROUTE ; Start at 13:36; Stop 11/28/16 at 13:37; Status DC Prochlorperazine Edisylate (Compazine) 10 mg STK-MED ONCE .ROUTE ; Start at 13:37; Stop 11/28/16 at 13:38; Status DC Ibuprofen (Motrin) 200 mg PRN Q6HRS PRN PO INFLAMMATION Last administered on 09:07; Start 11/29/16 at 08:30 Albuterol Sulfate (Ventolin Neb Soln) 2.5 mg RTQID NEB Last administered on 16:33; Start 11/30/16 at 08:00; Stop 11/30/16 at 17:18; Status DC Acetaminophen/ Hydrocodone Bitart (Lortab 7.5/325) 1 tab PRN Q6HRS PRN PO PAIN Last administered on 12/04/16 12:43; Start 11/30/16 at 15:15 Acetaminophen/ Hydrocodone Bitart (Lortab 7.5/325) 2 tab PRN Q6HRS PRN PO PAIN Last administered on 12/04/16 20:01; Start 11/30/16 at 15:15 Albuterol Sulfate (Ventolin Neb Soln) 2.5 mg RTQID NEB ; Start 11/30/16 at 20:00 ; Stop 11/30/16 at 20:00; Status DC Albuterol Sulfate (Ventolin Neb Soln) 2.5 mg PRN QID PRN NEB SHORTNESS OF BREATH Last administered on 11/30/16 17:35; Start 11/30/16 at 17:20 Piperacillin Sod/ Tazobactam Sod 3.375 gm/Sodium Chloride 50 ml @ 100 mls/hr Q6HRS IV Last administered on 12/01/16 05:41; Start 11/30/16 at 18:00; Stop at 11:07; Status DC Acetaminophen (Acetaminophen Supp) 650 mg PRN Q6HRS PRN PA MILD PAIN / TEMP; Start 11/30/16 at 17:30 Iohexol (Omnipaque 300 Mg/ml) 75 ml 1X ONCE IV Last administered on 11/30/16 17:46; Start 11/30/16 at 17:45; Stop 11/30/16 at 17:46; Status DC Acetaminophen (Tylenol) 650 mg PRN Q6HRS PRN PO FEVER > 101 Last administered on 12/04/16 12:42; Start 11/30/16 at 17:30 Info (Do NOT chart on this entry -- for MONITORING) 1 each PRN DAILY PRN MC SEE COMMENTS; Start 11/30/16 at 17:45; Stop 12/02/16 at 17:44; Status DC Vancomycin HCl 1 gm/Sodium Chloride 250 ml @ 250 mls/hr 1X STAT IV ; Start at 18:19; Stop 11/30/16 at 19:18; Status UNV Budesonide (Pulmicort) 0.5 mg RTBID NEB ; Start 11/30/16 at 20:00; Stop at 20:56; Status DC Vancomycin HCl 1 gm/Sodium Chloride 250 ml @ 250 mls/hr 1X ONCE IV Last administered on 11/30/16 20:36; Start 11/30/16 at 18:45; Stop 11/30/16 at 19:44 ; Status DC Norepinephrine Bitartrate 250 ml @ As Directed STK-MED ONCE IV ; Start at 19:52; Stop 11/30/16 at 19:53; Status DC Rocuronium [place] (Zemuron) 50 mg STK-MED ONCE .ROUTE ; Start 11/30/16 at 20:00 ; Stop 11/30/16 at 20:01; Status DC Propofol 100 ml @ As Directed STK-MED ONCE IV ; Start 11/30/16 at 20:20; Stop 11/30/16 at 20:21; Status DC Hydrocortisone Sodium Succinate (Solu-CORTEF) 50 mg Q6HRS IV Last administered on 12/01/16 05:42; Start 11/30/16 at 20:15; Stop 12/01/16 at 08:11; Status DC Norepinephrine Bitartrate 250 ml @ 0 mls/hr CONT PRN IV SEE I/O RECORD Last administered on 11/30/16 20:38; Start 11/30/16 at 20:15; Stop 12/03/16 at 11:23 ; Status DC Sodium Chloride 1,000 ml @ 1,000 mls/hr 1X ONCE IV Last administered on 20:40; Start 11/30/16 at 20:15; Stop 11/30/16 at 21:14; Status DC Sodium Chloride 1,000 ml @ 1,000 mls/hr 1X ONCE IV Last administered on 20:37; Start 11/30/16 at 20:15; Stop 11/30/16 at 21:14; Status DC Sodium Chloride 1,000 ml @ 1,000 mls/hr 1X ONCE IV Last administered on 20:36; Start 11/30/16 at 20:15; Stop 11/30/16 at 21:14; Status DC Propofol 100 ml @ 0 mls/hr CONT PRN IV SEE I/O RECORD Last administered on 12/02 15:57; Start 11/30/16 at 20:15; Stop 12/03/16 at 11:23; Status DC Albuterol Sulfate (Ventolin Neb Soln) 2.5 mg RTQID NEB Last administered on 06:58; Start 12/01/16 at 08:00 Heparin Sodium (Porcine) (Heparin Sodium) 7,750 unit 1X ONCE IV Last administered on 11/30/16 21:55; Start 11/30/16 at 22:00; Stop 11/30/16 at 22:01 ; Status DC Heparin Sodium/ Dextrose 500 ml @ 0 mls/hr CONT PRN IV SEE I/O RECORD Last administered on 12/03/16 01:28; Start 11/30/16 at 21:30; Stop 12/03/16 at 08:37 ; Status DC Heparin Sodium (Porcine) (Heparin Sodium) 2,900 unit PRN Q6HRS PRN IV FOR UFH LEVEL LESS THAN 0.2; Start 11/30/16 at 21:30; Stop 12/03/16 at 08:37; Status DC Heparin Sodium (Porcine) (Heparin Sodium) 1,450 unit PRN Q6HRS PRN IV FOR UFH LEVEL 0.2 - 0.29 Last administered on 12/01/16 17:29; Start 11/30/16 at 21:30; Stop 12/03/16 at 08:37; Status DC Rocuronium [place] (Zemuron) 50 mg 1X ONCE IV Last administered on 11/30/16 20:05; Start 12/01/16 at 04:45; Stop 12/01/16 at 04:46; Status DC Hydrocortisone Sodium Succinate (Solu-CORTEF) 50 mg Q8HRS IV Last administered on 12/03/16 05:52; Start 12/01/16 at 14:00; Stop 12/03/16 at 10:52; Status DC Famotidine (Pepcid) 20 mg BID IVP Last administered on 12/03/16 08:42; Start 12/01/16 at 10:00; Stop 12/03/16 at 11:19; Status DC Potassium Chloride (KCl Oral Soln) 20 meq 1X ONCE PEG Last administered on 10:05; Start 12/01/16 at 10:00; Stop 12/01/16 at 10:01; Status DC Vancomycin HCl (Vanco Per Pharmacy) 1 each PRN DAILY PRN MC SEE COMMENTS Last administered on 12/03/16 09:35; Start 12/01/16 at 10:15; Stop 12/04/16 at 08:48 ; Status DC Vancomycin HCl 1.5 gm/Sodium Chloride 500 ml @ 250 mls/hr Q12H IV Last administered on 12/03/16 23:09; Start 12/01/16 at 10:30; Stop 12/04/16 at 08:48 ; Status DC Vancomycin HCl 1 each 1X ONCE MC Last administered on 12/02/16 22:00; Start 12/02/16 at 22:00; Stop 12/02/16 at 22:01; Status DC Piperacillin Sod/ Tazobactam Sod 4.5 gm/Sodium Chloride 100 ml @ 200 mls/hr Q6HRS IV Last administered on 12/04/16 05:31; Start 12/01/16 at 12:00; Stop at 08:48; Status DC Etomidate (Amidate) 20 mg STK-MED ONCE IV ; Start 11/30/16 at 12:00; Stop at 05:57; Status DC Furosemide (Lasix) 20 mg 1X PRN PRN IV Blood transfusion Last administered on 15:56; Start 12/02/16 at 08:00; Stop 12/03/16 at 07:59; Status DC Sodium Chloride 70 meq/Potassium Acetate 70 meq/ Potassium Phosphate 13.6 mmol/ Magnesium Sulfate 10 meq/ Calcium Gluconate 10 meq/ Multivitamins 10 ml/Chromium / Copper/Manganese/ Seleni/Zn 1 ml/ Total Parenteral Nutrition/Amino Acids/ Dextrose 1,512 ml @ 62.999 mls/ hr TPN CONT IV ; Start 12/02/16 at 22:00; Stop 12/03/16 at 10:44; Status DC Info 1 each PRN DAILY PRN MC SEE COMMENTS Last administered on 12/02/16 14:50 ; Start 12/02/16 at 14:00; Stop 12/03/16 at 10:45; Status DC Midazolam HCl 100 ml @ 0 mls/hr CONT PRN IV SEE I/O RECORD; Start 12/02/16 at 15:15; Stop 12/03/16 at 11:23; Status DC Amino Acids/ Glycerin/ Electrolytes 1,000 ml @ 80 mls/hr [id number] IV Last administered on 12/04/16 05:30; Start 12/02/16 at 18:00; Stop 12/04/16 at 08:53 ; Status DC Sodium Bicarbonate 50 meq 1X ONCE IV Last administered on 12/02/16 20:12; Start 12/02/16 at 19:45; Stop 12/02/16 at 19:46; Status DC Fentanyl Citrate (Fentanyl 2ml Vial) 100 mcg PRN Q2HR PRN IV SEVERE PAIN Last administered on 12/03/16 12:36; Start 12/02/16 at 20:15; Stop 12/04/16 at 08:46 ; Status DC Lorazepam (Ativan) 1 mg PRN Q6HRS PRN IV ANXIETY / AGITATION Last administered on 12/05/16 03:43; Start 12/02/16 at 20:15 Insulin Aspart (NovoLOG) 0-5 UNITS Q6HRS SQ Last administered on 12/03/16 08: 03; Start 12/03/16 at 12:00 Dextrose (Dextrose 50%-Water Syringe) 12.5 gm PRN Q15MIN PRN IV SEE COMMENTS; Start 12/03/16 at 06:30 Potassium Chloride 100 ml @ 100 mls/hr PRN Q1HR PRN IV HYPOKALEMIA; Start at 06:30 Potassium Chloride 100 ml @ 100 mls/hr PRN Q1HR PRN IV HYPOKALEMIA; Start at 06:30 Potassium Chloride 100 ml @ 100 mls/hr PRN Q1HR PRN IV K<2.5 Last administered on 12/03/16 18:04; Start 12/03/16 at 06:30 Enoxaparin Sodium (Lovenox Per Pharmacy Treatment Dosing) 1 each PRN DAILY PRN MC SEE COMMENTS; Start 12/03/16 at 08:45; Stop 12/03/16 at 16:42; Status DC Enoxaparin Sodium (Lovenox 100mg Syringe) 100 mg Q12HR SQ ; Start 12/03/16 at 09 :00; Stop 12/03/16 at 16:42; Status DC Info (Anti-Coagulation Monitoring By Pharmacy) 1 each PRN DAILY PRN MC SEE COMMENTS Last administered on 12/04/16 15:30; Start 12/03/16 at 08:45 Prednisone (Prednisone) 20 mg DAILY PO Last administered on 12/05/16 08:09; Start 12/05/16 at 09:00; Stop 12/06/16 at 09:01 Prednisone (Prednisone) 10 mg DAILY PO ; Start 12/07/16 at 09:00; Stop 12/08/16 at 09:01 Prednisone (Prednisone) 5 mg DAILY PO ; Start 12/09/16 at 09:00; Stop 12/10/16 at 09:01 Pantoprazole Sodium (Protonix) 40 mg DAILYAC PO ; Start 12/04/16 at 07:30; Status UNV Aspirin (Ecotrin) 81 mg DAILYWBKFT PO Last administered on 12/05/16 08:10; Start 12/04/16 at 08:00 Apixaban (Eliquis) 10 mg BID PO Last administered on 12/05/16 08:09; Start at 21:00; Stop 12/10/16 at 09:01 Apixaban (Eliquis) 5 mg BID PO ; Start 12/10/16 at 21:00 Potassium Chloride 100 ml @ 100 mls/hr Q1H IV Last administered on 12/04/16 13:45; Start 12/04/16 at 08:00; Stop 12/04/16 at 11:59; Status DC Fentanyl Citrate (Fentanyl 2ml Vial) 50 mcg PRN Q2HR PRN IV SEVERE PAIN Last administered on 12/05/16 02:38; Start 12/04/16 at 08:45 Potassium Chloride (Klor-Con) 20 meq TIDWMEALS PO Last administered on 08:10; Start 12/04/16 at 09:00 Linezolid (Zyvox) 600 mg BID PO Last administered on 9/21/17at 08:09; Start at 09:00 Ciprofloxacin (Cipro) 500 mg BID PO Last administered on 12/05/16t 08:09; Start 12/04/16 at 09:00 Active Scripts Active Hydrocodone-Apap 7.5-325 (Hydrocodone Bit/Acetaminophen) 1 Each Tablet 1 Tab PO PRN Q6HRS PRN 30 Days Levothyroxine Sodium 150 Mcg Tablet 1 Tab PO DAILY Bentyl (Dicyclomine Hcl) 10 Mg Capsule 20 Mg PO Q6HRS Reported Chantix (Varenicline Tartrate) 1 Mg Tablet 1 Mg PO BID Atorvastatin Calcium 20 Mg Tablet 40 Mg PO HS Vitamin D (Cholecalciferol (Vitamin D3)) 1,000 Unit Capsule 1,000 Unit PO DAILY Vitamin E 400 Unit Capsule 400 Unit PO DAILY Fish Oil (Benton-3 Fatty Acids) 500 Mg Capsule 500 Mg PO DAILY Magnesium Oxide 400 Mg Tablet 400 Mg PO QID Xanax (Alprazolam) 1 Mg Tablet 1 Mg PO QID Lasix (Furosemide) 40 Mg Tablet 40 Mg PO DAILY Aspirin 325 Mg Tablet 325 Mg PO DAILY Gabapentin 600 Mg Tablet 600 Mg PO TID Tizanidine Hcl 4 Mg Tablet 4 Mg PO QID Estradiol 1 Each Patch.tdwk 1 Each TD DAILY07 Omeprazole 20 Mg Tablet.dr 20 Mg PO DAILY07 Klor-Con (Potassium Chloride) 20 Meq Packet 20 Meq PO TID Proair Hfa Inhaler (Albuterol Sulfate) 8.5 Gm Hfa.aer.ad 8.5 Gm IH Q4HRS Advair 500-50 Diskus (Fluticasone/Salmeterol) 1 Each Disk.w.dev 1 Each IH BID Vitals/I & O Vital Sign - Last 24 Hours 12/04/16 12/04/16 12/04/16 12/04/16 11:00 11:17 12:43 12:44 Temp 97.9 97.9 Pulse 77 Resp 18 18 18 B/P (MAP) 111/60 (77) Pulse Ox 91 99 91 91 O2 Delivery Nasal Cannula Nasal Cannula Room Air Room Air O2 Flow Rate 4.0 3.0 12/04/16 12/04/16 12/04/16 12/04/16 13:43 15:00 15:12 15:19 Temp 98.2 98.2 Pulse 84 Resp 16 18 18 B/P (MAP) 116/70 (85) Pulse Ox 91 92 91 O2 Delivery Room Air Nasal Cannula Room Air Room Air O2 Flow Rate 4.0 12/04/16 12/04/16 12/04/16 12/04/16 18:11 19:00 20:00 20:00 Temp 97.5 97.5 Pulse 75 Resp 18 18 20 B/P (MAP) 109/64 (79) Pulse Ox 91 93 91 O2 Delivery Room Air Nasal Cannula Nasal Cannula O2 Flow Rate 2.0 2.0 12/04/16 12/04/16 12/04/16 12/04/16 20:01 20:03 21:01 23:00 Temp 97.9 97.9 Pulse 71 Resp 20 20 16 B/P (MAP) 128/69 (88) Pulse Ox 91 99 99 94 O2 Delivery Nasal Cannula Nasal Cannula Nasal Cannula O2 Flow Rate 2.0 2.0 2.0 12/04/16 12/05/16 12/05/16 12/05/16 23:31 02:38 03:00 03:08 Temp 97.7 97.7 Pulse 72 Resp 20 20 18 20 B/P (MAP) 143/78 (99) Pulse Ox 99 99 97 99 O2 Delivery Nasal Cannula Nasal Cannula Nasal Cannula O2 Flow Rate 2.0 2.0 2.0 12/05/16 12/05/16 12/05/16 12/05/16 06:12 06:42 07:00 07:09 Temp 97.6 97.6 Pulse 87 Resp 20 20 20 B/P (MAP) 154/88 (110) Pulse Ox 99 97 95 97 O2 Delivery Nasal Cannula Nasal Cannula Nasal Cannula Nasal Cannula O2 Flow Rate 2.0 2.0 4.0 2.0 12/05/16 08:52 O2 Delivery Nasal Cannula O2 Flow Rate 2.0 NICOLAS HICKS MD Dec 05, 2016 09:56
--- NOTE | 2016-12-05 10:03 | PDOC ---
SURGICAL PROGRESS NOTE Subjective Pt resting comfortably d/w Dr. Garg agree with d/c plans in AM Vital Signs Vital Signs Date Time Temp Pulse Resp B/P (MAP) Pulse Ox O2 Delivery O2 Flow Rate FiO2 12/05/16 08:52 Nasal Cannula 2.0 12/05/16 07:09 97 12/05/16 07:00 97.6 87 20 154/88 (110) 97.6 Labs Laboratory Tests Test 12/03/16 12:51 12/03/16 17:54 12/03/16 20:12 12/04/16 00:06 Glucose (Fingerstick) 149 mg/dL (70-99) 107 mg/dL (70-99) 93 mg/dL (70-99) Potassium Level 2.5 mmol/L (3.5-5.1) Test 12/04/16 06:00 12/04/16 06:11 12/04/16 12:21 12/04/16 18:24 White Blood Count 10.5 x10^3/uL (4.0-11.0) Red Blood Count 3.80 x10^6/uL (3.50-5.40) Hemoglobin 10.6 g/dL (12.0-15.5) Hematocrit 31.8 % (36.0-47.0) Mean Corpuscular Volume 84 fL (79-100) Mean Corpuscular Hemoglobin 28 pg (25-35) Mean Corpuscular Hemoglobin Concent 34 g/dL (31-37) Red Cell Distribution Width 15.3 % (11.5-14.5) Platelet Count 373 x10^3/uL (140-400) Sodium Level 143 mmol/L (136-145) Potassium Level 2.7 mmol/L (3.5-5.1) Chloride Level 103 mmol/L (98-107) Carbon Dioxide Level 32 mmol/L (21-32) Anion Gap 8 (6-14) Blood Urea Nitrogen 11 mg/dL (7-20) Creatinine 0.9 mg/dL (0.6-1.0) Estimated GFR (Cockcroft-Gault) 64.1 Glucose Level 94 mg/dL (70-99) Calcium Level 8.3 mg/dL (8.5-10.1) Phosphorus Level 2.8 mg/dL (2.6-4.7) Magnesium Level 1.9 mg/dL (1.8-2.4) Glucose (Fingerstick) 96 mg/dL (70-99) 110 mg/dL (70-99) 145 mg/dL (70-99) Test 12/04/16 23:31 12/05/16 03:30 12/05/16 06:11 Glucose (Fingerstick) 77 mg/dL (70-99) 90 mg/dL (70-99) Sodium Level 139 mmol/L (136-145) Potassium Level 3.3 mmol/L (3.5-5.1) Chloride Level 102 mmol/L (98-107) Carbon Dioxide Level 30 mmol/L (21-32) Anion Gap 7 (6-14) Blood Urea Nitrogen 9 mg/dL (7-20) Creatinine 0.7 mg/dL (0.6-1.0) Estimated GFR (Cockcroft-Gault) 85.6 Glucose Level 90 mg/dL (70-99) Calcium Level 8.4 mg/dL (8.5-10.1) Phosphorus Level 2.8 mg/dL (2.6-4.7) Magnesium Level 1.9 mg/dL (1.8-2.4) Laboratory Tests Test 12/04/16 12:21 12/04/16 18:24 12/04/16 23:31 12/05/16 03:30 Glucose (Fingerstick) 110 mg/dL (70-99) 145 mg/dL (70-99) 77 mg/dL (70-99) Sodium Level 139 mmol/L (136-145) Potassium Level 3.3 mmol/L (3.5-5.1) Chloride Level 102 mmol/L (98-107) Carbon Dioxide Level 30 mmol/L (21-32) Anion Gap 7 (6-14) Blood Urea Nitrogen 9 mg/dL (7-20) Creatinine 0.7 mg/dL (0.6-1.0) Estimated GFR (Cockcroft-Gault) 85.6 Glucose Level 90 mg/dL (70-99) Calcium Level 8.4 mg/dL (8.5-10.1) Phosphorus Level 2.8 mg/dL (2.6-4.7) Magnesium Level 1.9 mg/dL (1.8-2.4) Test 12/05/16 06:11 Glucose (Fingerstick) 90 mg/dL (70-99) Problem List Problems Medical Problems: (1) Abdominal pain Status: Acute Problems: LETICIA KAUFFMAN MD Dec 05, 2016 10:03
[2016-12-05 11:00] VITALS: BP 112/76
--- NOTE | 2016-12-05 11:29 | PDOC ---
Subjective: Subjective: Doesn't like the food. Abd sore from coughing. Says going home tomorrow. Says the breathing tube was miserable and she does not want that again. Objective: Vital Signs: Vital Signs Date Time Temp Pulse Resp B/P (MAP) Pulse Ox O2 Delivery O2 Flow Rate FiO2 12/05/16 10:47 97 Nasal Cannula 2.0 12/05/16 07:00 97.6 87 20 154/88 (110) 97.6 Labs: Laboratory Tests Test 12/04/16 12:21 12/04/16 18:24 12/04/16 23:31 12/05/16 03:30 Glucose (Fingerstick) 110 mg/dL 145 mg/dL 77 mg/dL Sodium Level 139 mmol/L Potassium Level 3.3 mmol/L Chloride Level 102 mmol/L Carbon Dioxide Level 30 mmol/L Anion Gap 7 Blood Urea Nitrogen 9 mg/dL Creatinine 0.7 mg/dL Estimated GFR (Cockcroft-Gault) 85.6 Glucose Level 90 mg/dL Calcium Level 8.4 mg/dL Phosphorus Level 2.8 mg/dL Magnesium Level 1.9 mg/dL Test 12/05/16 06:11 Glucose (Fingerstick) 90 mg/dL PE: GEN: NAD, up to chair ABD: ostomy w/ dark liquid stool and air NEURO/PSYCH: A & O 3, depressed A/P: S/p hernia repairs w/ chronic pain Anemia - stable -- DC per primary. She brought up how she does not want to be intubated again; I encouraged her to discuss this with her family. VIJAY BRIONES Dec 05, 2016 11:28
[2016-12-05] MEDS: HYDROcodone/APAP 7.5/325MG 1 TAB TABLET PO PRN ×2 (13:04→20:50)
--- NOTE | 2016-12-05 13:06 | PDOC ---
PULMONARY PROGRESS NOTES Subjective extubated 12/02 doing well on canula Vitals Vital Signs Date Time Temp Pulse Resp B/P (MAP) Pulse Ox O2 Delivery O2 Flow Rate FiO2 12/05/16 13:04 Nasal Cannula 2.0 12/05/16 11:00 98.7 88 20 112/76 (88) 92 98.7 General: Alert, No acute distress Lungs: Other (decrease bs) Cardiovascular: S1 Abdomen: Soft, Other (colostomy bag wit hno blood) Neuro Exam: Alert Extremities: No Edema Skin: Warm Labs Laboratory Tests Test 12/03/16 17:54 12/03/16 20:12 12/04/16 00:06 12/04/16 06:00 Glucose (Fingerstick) 107 mg/dL (70-99) 93 mg/dL (70-99) Potassium Level 2.5 mmol/L (3.5-5.1) 2.7 mmol/L (3.5-5.1) White Blood Count 10.5 x10^3/uL (4.0-11.0) Red Blood Count 3.80 x10^6/uL (3.50-5.40) Hemoglobin 10.6 g/dL (12.0-15.5) Hematocrit 31.8 % (36.0-47.0) Mean Corpuscular Volume 84 fL (79-100) Mean Corpuscular Hemoglobin 28 pg (25-35) Mean Corpuscular Hemoglobin Concent 34 g/dL (31-37) Red Cell Distribution Width 15.3 % (11.5-14.5) Platelet Count 373 x10^3/uL (140-400) Sodium Level 143 mmol/L (136-145) Chloride Level 103 mmol/L (98-107) Carbon Dioxide Level 32 mmol/L (21-32) Anion Gap 8 (6-14) Blood Urea Nitrogen 11 mg/dL (7-20) Creatinine 0.9 mg/dL (0.6-1.0) Estimated GFR (Cockcroft-Gault) 64.1 Glucose Level 94 mg/dL (70-99) Calcium Level 8.3 mg/dL (8.5-10.1) Phosphorus Level 2.8 mg/dL (2.6-4.7) Magnesium Level 1.9 mg/dL (1.8-2.4) Test 12/04/16 06:11 12/04/16 12:21 12/04/16 18:24 12/04/16 23:31 Glucose (Fingerstick) 96 mg/dL (70-99) 110 mg/dL (70-99) 145 mg/dL (70-99) 77 mg/dL (70-99) Test 12/05/16 03:30 12/05/16 06:11 12/05/16 11:57 Sodium Level 139 mmol/L (136-145) Potassium Level 3.3 mmol/L (3.5-5.1) Chloride Level 102 mmol/L (98-107) Carbon Dioxide Level 30 mmol/L (21-32) Anion Gap 7 (6-14) Blood Urea Nitrogen 9 mg/dL (7-20) Creatinine 0.7 mg/dL (0.6-1.0) Estimated GFR (Cockcroft-Gault) 85.6 Glucose Level 90 mg/dL (70-99) Calcium Level 8.4 mg/dL (8.5-10.1) Phosphorus Level 2.8 mg/dL (2.6-4.7) Magnesium Level 1.9 mg/dL (1.8-2.4) Glucose (Fingerstick) 90 mg/dL (70-99) 145 mg/dL (70-99) Laboratory Tests Test 12/04/16 18:24 12/04/16 23:31 12/05/16 03:30 12/05/16 06:11 Glucose (Fingerstick) 145 mg/dL (70-99) 77 mg/dL (70-99) 90 mg/dL (70-99) Sodium Level 139 mmol/L (136-145) Potassium Level 3.3 mmol/L (3.5-5.1) Chloride Level 102 mmol/L (98-107) Carbon Dioxide Level 30 mmol/L (21-32) Anion Gap 7 (6-14) Blood Urea Nitrogen 9 mg/dL (7-20) Creatinine 0.7 mg/dL (0.6-1.0) Estimated GFR (Cockcroft-Gault) 85.6 Glucose Level 90 mg/dL (70-99) Calcium Level 8.4 mg/dL (8.5-10.1) Phosphorus Level 2.8 mg/dL (2.6-4.7) Magnesium Level 1.9 mg/dL (1.8-2.4) Test 12/05/16 11:57 Glucose (Fingerstick) 145 mg/dL (70-99) Medications Active Scripts Medications Dose Route/Sig Max Daily Dose Days Date Category Hydrocodone-Apap 7.5-325 (Hydrocodone Bit/Acetaminophen) 1 Each Tablet 1 Tab PO PRN Q6HRS PRN 30 11/27/16 Rx Levothyroxine Sodium 150 Mcg Tablet 1 Tab PO DAILY 11/27/16 Rx Chantix (Varenicline Tartrate) 1 Mg Tablet 1 Mg PO BID 11/26/16 Reported Bentyl (Dicyclomine Hcl) 10 Mg Capsule 20 Mg PO Q6HRS 11/24/14 Rx Atorvastatin Calcium 20 Mg Tablet 40 Mg PO HS 04/26/13 Reported Vitamin D (Cholecalciferol (Vitamin D3)) 1,000 Unit Capsule 1,000 Unit PO DAILY 04/26/13 Reported Vitamin E 400 Unit Capsule 400 Unit PO DAILY 04/26/13 Reported Fish Oil ([place]-3 Fatty Acids) 500 Mg Capsule 500 Mg PO DAILY 04/26/13 Reported Magnesium Oxide 400 Mg Tablet 400 Mg PO QID 04/26/13 Reported Xanax (Alprazolam) 1 Mg Tablet 1 Mg PO QID 04/26/13 Reported Lasix (Furosemide) 40 Mg Tablet 40 Mg PO DAILY 04/26/13 Reported Aspirin 325 Mg Tablet 325 Mg PO DAILY 04/26/13 Reported Gabapentin 600 Mg Tablet 600 Mg PO TID 04/26/13 Reported Tizanidine Hcl 4 Mg Tablet 4 Mg PO QID 04/26/13 Reported Estradiol 1 Each Patch.tdwk 1 Each TD DAILY07 04/26/13 Reported Omeprazole 20 Mg Tablet.dr 20 Mg PO DAILY07 04/26/13 Reported Klor-Con (Potassium Chloride) 20 Meq Packet 20 Meq PO TID 04/26/13 Reported Proair Hfa Inhaler (Albuterol Sulfate) 8.5 Gm Hfa.aer.ad 8.5 Gm IH Q4HRS 04/26/13 Reported Advair 500-50 Diskus (Fluticasone/Salmeterol) 1 Each Disk.w.dev 1 Each IH BID 04/26/[address] ABD/PELVIS no obvious bleed Impression . 1. Acute respiratory failure, multifactorial in etiology including bacterial pneumonia (hcap, aspiration), septic shock, underlying chronic obstructive pulmonary disease with acute exacerbation, extubated 12/03. Doing well on canula 2. Abnormal chest x-ray and CT of the chest with mild GG infiltrates and LLL consolidation 3. s/p septic shock, 4. Pulmonary embolism. (small RUL? clinical significance) 5. Status post exploratory laparotomy and revision of ileostomy. 6. Leukocytosis. 7. Coronary artery disease. 8. Obesity. 9. Anemia, no obvious blood loss, improved post TX, neg ct abd/pelvis Plan . 1. Nasal canula. 2. oral nutrition 3. replace K 4. Continue Pulmicort./nebs 5. Solu-Cortef , dc'd .changed to PO steroids 6. Continue Protonix. 7. started on Eliquis.( PE is not so clinically significant). probably 6 weeks of AC sufficient, repeat CTA in 6 weeks 8. Elevate head of bed. 9. Pt eval/Rx 10. possible dc home in MARQUIS Miller MD Dec 05, 2016 13:06
[2016-12-05 15:02] VITALS: BP 101/59
[2016-12-05 19:00] VITALS: BP 113/63
[2016-12-05] MEDS: ATORVASTATIN CALCIUM 20 MG TABLET PO SCH (20:47)
[2016-12-05 23:00] VITALS: BP 111/53
[2016-12-05] MEDS: IBUPROFEN 200 MG TABLET. PO PRN (23:09)
[2016-12-06 03:00] VITALS: BP 150/83
[2016-12-06] MEDS: INSULIN ASPART 300 UNITS/3 ML INSULN.PEN SQ SCH ×3 (06:00→11:56)
[2016-12-06] MEDS: LEVOTHYROXINE 150 MCG TABLET PO SCH (06:10)
[2016-12-06] MEDS: HYDROcodone/APAP 7.5/325MG 1 TAB TABLET PO PRN ×3 (06:11→15:36)
[2016-12-06] MEDS: ALBUTEROL SULFATE 2.5 MG/3 ML NEBU. NEB SCH ×2 (07:27→11:06)
[2016-12-06] MEDS: BUDESONIDE 0.5 MG/2 ML NEBU. NEB SCH (07:27)
[2016-12-06 07:35] VITALS: BP 137/78
[2016-12-06] MEDS: GABAPENTIN 300 MG CAPSULE. PO SCH ×2 (08:14→14:22)
[2016-12-06] MEDS: ALPRAZolam 1 MG TABLET PO PRN (08:14)
[2016-12-06] MEDS: CHOLECALCIFEROL (VITAMIN D3) 1,000 UNIT TABLET PO SCH (08:14)
[2016-12-06] MEDS: predniSONE 20 MG TABLET PO SCH (08:14)
[2016-12-06] MEDS: MAGNESIUM OXIDE 400 MG TABLET PO SCH ×2 (08:14→14:23)
[2016-12-06] MEDS: PANTOPRAZOLE 40 MG TABLET.DR. PO SCH (08:15)
[2016-12-06] MEDS: tiZANidine 4 MG TABLET. PO SCH ×2 (08:15→14:23)
[2016-12-06] MEDS: CIPROFLOXACIN HCL 250 MG TABLET. PO SCH (08:15)
[2016-12-06] MEDS: FUROSEMIDE 40 MG TABLET. PO SCH (08:15)
[2016-12-06] MEDS: VITAMIN E 200 UNIT CAPSULE. PO SCH (08:15)
[2016-12-06] MEDS: APIXABAN 5 MG TABLET. PO SCH (08:16)
[2016-12-06] MEDS: ASPIRIN ENTERIC COATED 81 MG TABLET.DR. PO SCH (08:16)
[2016-12-06] MEDS: OMEGA-3 FATTY ACIDS/FISH OIL 1,000 MG CAPSULE. PO SCH (08:16)
[2016-12-06] MEDS: LINEZOLID 600 MG TABLET PO SCH (08:53)
[2016-12-06] MEDS: VARENICLINE 0.5 MG TABLET. PO SCH (08:54)
[2016-12-06] MEDS: POTASSIUM CHLORIDE 20 MEQ TABLET.ER. PO SCH ×2 (08:54→14:23)
--- NOTE | 2016-12-06 08:56 | PDOC ---
Infectious Disease Note Subjective Subjective feeling better, but says ready to go home ROS ROS GEN: Denies fevers, chills, sweats HEENT: Denies blurred vision, sore throat CV: Denies chest pain RESP: Denies shortness of air, cough GI: Denies n/v/d NEURO: Denies confusion, dizziness MSK: Denies weakness, joint pain/swelling Vital Sign Vital Signs Vital Signs Date Time Temp Pulse Resp B/P (MAP) Pulse Ox O2 Delivery O2 Flow Rate FiO2 12/06/16 07:35 97.0 69 20 137/78 (97) 91 Room Air 97.0 12/06/16 03:00 1.0 Physical Exam PHYSICAL EXAM GENERAL: NAD, Alert HEENT: PERRL, OC/OP NECK: Supple, no JVD, no LN LUNGS: Clear HEART: S1S2, no gallop, no murmur ABD: Soft, NT, no organomegaly, no rebound EXT: No edema, no cyanosis STAFF TECHNOLOGIST: Alert, 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, no focal neurologic deficit SKIN: No rash IV: ok Labs Lab Laboratory Tests Test 12/05/16 11:57 12/05/16 18:06 12/06/16 00:07 12/06/16 06:04 Glucose (Fingerstick) 145 mg/dL (70-99) 183 mg/dL (70-99) 139 mg/dL (70-99) 95 mg/dL (70-99) Micro BC neg SPUTUM CULTURE-LC Final Final report The Directory of Services listing for this report is "Lower Respiratory Culture", test number 741691. This title and test code number are being discontinued effective 2016. For sputum culture in the future, use the Directory of Services listing "Gram Stain Evaluation With Sputum Culture Reflex", test number 271454. For culture of lower respiratory specimens other than expectorated sputum in the future, [facility] will offer "Lower Respiratory Culture, Other than Expectorated Sputum", test number 286207. SPUTUM CULT RES 1 Final Serratia marcescens Moderate growth SPUTUM CULT RES 2 Final Comment Methicillin - resistant Staphylococcus aureus Moderate growth Based on resistance to oxacillin this isolate would be resistant to all currently available beta-lactam antimicrobial agents, with the exception of the newer cephalosporins with anti-MRSA activity, such as Ceftaroline ANTIMICROBIAL SUSCEPTIBILITY Final Comment S = Susceptible; I = Intermediate; R = Resistant P = Positive; N = Negative MICS are expressed in micrograms per mL Antibiotic RSLT#1 RSLT#2 RSLT#3 RSLT#4 Amoxicillin/Clavulanic Acid R CONTINUED ON NEXT PAGE RUN DATE: 12/03/16 PAGE 2 RUN TIME: [id number] [facility] [address] [place] [address] James Awan M.D., Garbage Pick Up Man SPEC: [id number] PATIENT: BELLA ROACH [id number] ( Continued) Procedure Result ANTIMICROBIAL SUSCEPTIBILITY Final (continued) Cefazolin R Cefepime S Ceftriaxone S Cefuroxime R Ciprofloxacin S R Clindamycin S Ertapenem S Erythromycin R Gentamicin S S Imipenem S Levofloxacin S I Linezolid S Oxacillin R Penicillin R Piperacillin S Rifampin S Tetracycline S S Tobramycin S Trimethoprim/Sulfa S S Vancomycin S Performed at: [address], [place], [place] [id number] Push Bench Operator Helper: Judie Harris MD, Phone: [phone] Objective Assessment Fever Leukocytosis Aspiration/HCAP Respiratory failure S/P colostomy revision Plan Plan of Care patric and ishmael po supportive care d/c home co BONNIE CANADA MD Dec 06, 2016 08:56
[2016-12-06 09:40] LABS: CREATININE 0.9 mg/dL (0.6-1.0); GFR 64.1; POTASSIUM 3.3 mmol/L (3.5-5.1)
--- NOTE | 2016-12-06 09:42 | PDOC ---
Subjective: Subjective: Tells me going home today. Actually likes breakfast this morning. Pleased w/ Brittanyx helping her quit smoking. Objective: Vital Signs: Vital Signs Date Time Temp Pulse Resp B/P (MAP) Pulse Ox O2 Delivery O2 Flow Rate FiO2 12/06/16 08:00 Room Air 12/06/16 07:35 97.0 69 20 137/78 (97) 91 97.0 12/06/16 03:00 1.0 Labs: Laboratory Tests Test 12/05/16 11:57 12/05/16 18:06 12/06/16 00:07 12/06/16 06:04 Glucose (Fingerstick) 145 mg/dL 183 mg/dL 139 mg/dL 95 mg/dL PE: GEN: NAD, sitting up in bed eating eggs, toast, and garcia LUNGS: clear HEART: RRR ABD: ostomy w/ liquid stool NEURO/PSYCH: A & O 3, smiling today A/P: S/p hernia repairs, h/o multiple abd surgeries -ileostomy in place Acute resp failure/PE/COPD - improved -on prednisone, Eliquis Anemia - stable -- DC per primary. Continue PPI. Follow-up w/ GI PRN. VIJAY BRIONES Dec 06, 2016 09:42
--- NOTE | 2016-12-06 09:44 | PDOC ---
PROGRESS NOTES Subjective Subjective Patient agreeable to discharge home today. Denies other concerns at this time. Objective Objective Vital Signs Date Time Temp Pulse Resp B/P (MAP) Pulse Ox O2 Delivery O2 Flow Rate FiO2 12/06/16 07:35 97.0 69 20 137/78 (97) 91 Room Air 97.0 12/06/16 03:00 1.0 Physical Exam Abdomen: Normal bowel sounds, Soft, Other (good output in colostomy bag) Heart: Regular rate Extremities: No edema General: Alert, Oriented X3, No acute distress Lungs: Clear to auscultation Assessment Assessment Problems Medical Problems: (1) Abdominal pain Status: Acute Plan Plan of Care 1. POD #8 hernia repair - stable, home today. Ostomy functioning well, tolerating regular diet, no abdominal pain. 2. acute respiratory failure with pneumonia and COPD - improved. No longer hypoxic on RA during the day. Home on po abx per Dr Shea. Continue Chantix and refrain from resuming smoking. 3. Pulmonary emboli - stable, continue Eliquis for [address] Hancock, then recheck CT. 4. chronic pain - controlled with po pain meds, patient advised to resume her usual dose of one tab [place] prn. 5. chronic anxiety - stable with her usual po meds. 6. debility - improved, feels she is about at her baseline mobility. 7. anemia - remained stable after transfusion. 8. chronic intermittent urinary retention - stable after Drum[place] removal yesterday. Patient will continue to straight-cath herself at home as needed. Comment Review of Relevant I have reviewed the following items chris (where applicable) has been applied. Labs Laboratory Tests Test 12/04/16 12:21 12/04/16 18:24 12/04/16 23:31 12/05/16 03:30 Glucose (Fingerstick) 110 mg/dL (70-99) 145 mg/dL (70-99) 77 mg/dL (70-99) Sodium Level 139 mmol/L (136-145) Potassium Level 3.3 mmol/L (3.5-5.1) Chloride Level 102 mmol/L (98-107) Carbon Dioxide Level 30 mmol/L (21-32) Anion Gap 7 (6-14) Blood Urea Nitrogen 9 mg/dL (7-20) Creatinine 0.7 mg/dL (0.6-1.0) Estimated GFR (Cockcroft-Gault) 85.6 Glucose Level 90 mg/dL (70-99) Calcium Level 8.4 mg/dL (8.5-10.1) Phosphorus Level 2.8 mg/dL (2.6-4.7) Magnesium Level 1.9 mg/dL (1.8-2.4) Test 12/05/16 06:11 12/05/16 11:57 12/05/16 18:06 12/06/16 00:07 Glucose (Fingerstick) 90 mg/dL (70-99) 145 mg/dL (70-99) 183 mg/dL (70-99) 139 mg/dL (70-99) Test 12/06/16 06:04 Glucose (Fingerstick) 95 mg/dL (70-99) Laboratory Tests Test 12/05/16 11:57 12/05/16 18:06 12/06/16 00:07 12/06/16 06:04 Glucose (Fingerstick) 145 mg/dL (70-99) 183 mg/dL (70-99) 139 mg/dL (70-99) 95 mg/dL (70-99) Microbiology 11/30/16 Blood Culture - Final, Complete NO GROWTH AFTER 5 DAYS 12/01/16 Sputum Culture - Final, Complete 12/01/16 Sputum Result 1 - Final, Complete 12/01/16 Sputum Result 2 - Final, Complete 12/01/16 Antimicrobic Susceptibility - Final, Complete Medications Current Medications Fentanyl Citrate (Fentanyl 2ml Vial) 50 mcg PRN Q15MIN PRN IV PAIN GREATER THAN 3/10 Last administered on 11/26/16 19:41; Start 11/26/16 at 18:00; Stop at 17:59; Status DC Sodium Chloride 1,000 ml @ 1,000 mls/hr Q1H IV Last administered on 11/26/16 18:20; Start 11/26/16 at 18:00; Stop 11/26/16 at 18:59; Status DC Ondansetron HCl (Zofran) 4 mg 1X ONCE IV Last administered on 11/26/16 18:19 ; Start 11/26/16 at 18:00; Stop 11/26/16 at 18:01; Status DC Iohexol (Omnipaque 300 Mg/ml) 60 ml 1X ONCE IV Last administered on 11/26/16 18:39; Start 11/26/16 at 18:15; Stop 11/26/16 at 18:16; Status DC Info (Do NOT chart on this entry -- for MONITORING) 1 each PRN DAILY PRN MC SEE COMMENTS; Start 11/26/16 at 18:15; Stop 11/28/16 at 18:14; Status DC Ondansetron HCl (Zofran) 4 mg PRN Q8HRS PRN IV NAUSEA/VOMITING; Start 11/26/16 at 19:45; Stop 11/27/16 at 19:44; Status DC Fentanyl Citrate (Fentanyl 2ml Vial) 50 mcg PRN Q1HR PRN IV PAIN Last administered on 11/27/16 16:15; Start 11/26/16 at 19:45; Stop 11/27/16 at 19:44 ; Status DC Sodium Chloride 1,000 ml @ 100 mls/hr Q10H IV Last administered on 11/27/16 16:17; Start 11/26/16 at 20:00; Stop 11/27/16 at 19:59; Status DC Acetaminophen (Tylenol) 650 mg PRN Q4HRS PRN PO FEVER; Start 11/26/16 at 19:45 ; Stop 11/27/16 at 19:44; Status DC Gabapentin (Neurontin) 600 mg 1X ONCE PO Last administered on 11/26/16 22:14 ; Start 11/26/16 at 21:45; Stop 11/26/16 at 21:46; Status DC Varenicline (Chantix) 1 mg 1X ONCE PO Last administered on 11/26/16 22:15; Start 11/26/16 at 21:45; Stop 11/26/16 at 21:46; Status DC Atorvastatin Calcium (Lipitor) 40 mg 1X ONCE PO Last administered on 22:15; Start 11/26/16 at 21:45; Stop 11/26/16 at 21:46; Status DC Alprazolam (Xanax) 1 mg 1X ONCE PO Last administered on 11/26/16 22:15; Start 11/26/16 at 21:45; Stop 11/26/16 at 21:46; Status DC Tizanidine HCl (Zanaflex) 4 mg 1X ONCE PO Last administered on 11/26/16 22:15 ; Start 11/26/16 at 21:45; Stop 11/26/16 at 21:46; Status DC Potassium Chloride (Klor-Con) 20 meq 1X ONCE PO Last administered on 22:14; Start 11/26/16 at 21:45; Stop 11/26/16 at 21:46; Status DC Alprazolam (Xanax) 1 mg PRN QID PRN PO ANXIETY / AGITATION Last administered on 12/06/16 08:14; Start 11/27/16 at 08:45 Aspirin (Nader Aspirin) 325 mg DAILY PO Last administered on 12/03/16 08:41; Start 11/27/16 at 09:00; Stop 12/03/16 at 12:40; Status DC Atorvastatin Calcium (Lipitor) 40 mg HS PO Last administered on 12/05/16 20:47 ; Start 11/27/16 at 21:00 Dicyclomine HCl (Bentyl) 20 mg PRN Q6HRS PRN PO GI PAIN Last administered on 09:05; Start 11/27/16 at 08:45 Furosemide (Lasix) 40 mg DAILY PO Last administered on 12/06/16 08:15; Start 11/27/16 at 09:00 Acetaminophen/ Hydrocodone Bitart (Lortab 7.5/325) 1 tab PRN Q6HRS PRN PO PAIN Last administered on 11/30/16 11:14; Start 11/27/16 at 08:45; Stop 11/30/16 at 15:03; Status DC Levothyroxine Sodium (Synthroid) 150 mcg DAILY07 PO Last administered on 06:10; Start 11/27/16 at 10:30 Magnesium Oxide (Magnesium Oxide) 400 mg QID PO Last administered on 12/06/16 08:14; Start 11/27/16 at 09:00 Tizanidine HCl (Zanaflex) 4 mg QID PO Last administered on 12/06/16 08:15; Start 11/27/16 at 09:00 Non-Formulary Medication 8.5 gm Q4HRS IH ; Start 11/27/16 at 12:00; Stop at 12:00; Status DC Vitamin D (Vitamin D3) 1,000 unit DAILY PO Last administered on 12/06/16 08:14 ; Start 11/27/16 at 09:00 Non-Formulary Medication 1 each BID IH ; Start 11/27/16 at 09:00; Stop 11/27/16 at 09:38; Status DC Gabapentin (Neurontin) 600 mg TID PO Last administered on 12/06/16 08:14; Start 11/27/16 at 09:00 Fish Oil (Fish Oil) 1,000 mg DAILY PO Last administered on 12/06/16 08:16; Start 11/27/16 at 09:00 Pantoprazole Sodium (Protonix) 40 mg DAILYAC PO Last administered on 12/06/16 08:15; Start 11/27/16 at 11:30 Potassium Chloride (Klor-Con) 20 meq TIDWMEALS PO Last administered on 18:45; Start 11/27/16 at 09:00; Stop 12/01/16 at 09:57; Status DC Vitamin E 400 unit DAILY PO Last administered on 12/06/16 08:15; Start at 09:00 Varenicline (Chantix) 1 mg BID PO Last administered on 12/06/16 08:54; Start 11/27/16 at 09:00 Albuterol Sulfate (Ventolin Neb Soln) 2.5 mg Q4HRS NEB Last administered on 23:02; Start 11/27/16 at 12:00; Stop 11/29/16 at 23:05; Status DC Budesonide (Pulmicort) 0.5 mg RTBID NEB Last administered on 12/06/16 07:27; Start 11/27/16 at 10:00 Iohexol (Omnipaque 350 Mg/ml) 300 ml 1X ONCE PO Last administered on 13:30; Start 11/27/16 at 12:45; Stop 11/27/16 at 12:48; Status DC Iohexol (Omnipaque 350 Mg/ml) 100 ml STK-MED ONCE .ROUTE ; Start 11/27/16 at 13: 04; Stop 11/27/16 at 13:05; Status DC Iohexol (Omnipaque 300 Mg/ml) 300 ml 1X ONCE PO ; Start 11/27/16 at 13:30; Stop 11/27/16 at 13:31; Status DC Info (Do NOT chart on this entry -- for MONITORING) 1 each PRN DAILY PRN MC SEE COMMENTS; Start 11/27/16 at 13:30; Stop 11/29/16 at 13:29; Status DC Iohexol (Omnipaque 350 Mg/ml) 100 ml STK-MED ONCE .ROUTE ; Start 11/27/16 at 13: 24; Stop 11/27/16 at 13:25; Status DC Ondansetron HCl (Zofran) 4 mg PRN Q6HRS PRN IV NAUSEA/VOMITING; Start 11/28/16 at 07:00; Stop 11/28/16 at 07:00; Status DC Fentanyl Citrate (Fentanyl 2ml Vial) 25 mcg PRN Q5MIN PRN IV MILD PAIN; Start 11/28/16 at 07:00; Stop 11/28/16 at 18:00; Status DC Fentanyl Citrate (Fentanyl 2ml Vial) 50 mcg PRN Q5MIN PRN IV MODERATE PAIN Last administered on 11/28/16 13:50; Start 11/28/16 at 07:00; Stop 11/28/16 at 18:00; Status DC Morphine Sulfate 1 mg PRN Q10MIN PRN IV SEVERE PAIN; Start 11/28/16 at 07:00; Stop 11/28/16 at 18:00; Status DC Ringer's Solution 1,000 ml @ 30 mls/hr Q24H IV Last administered on 11/28/16 07:47; Start 11/28/16 at 07:00; Stop 11/28/16 at 18:59; Status DC Lidocaine HCl 2 ml PRN 1X PRN ID PRIOR TO IV START; Start 11/28/16 at 07:00; Stop 11/28/16 at 18:00; Status DC Hydromorphone HCl (Dilaudid) 0.5 mg PRN Q10MIN PRN IV SEV PAIN, Second choice Last administered on 11/28/16 14:11; Start 11/28/16 at 07:00; Stop 11/28/16 at 18:00; Status DC Prochlorperazine Edisylate (Compazine) 5 mg PACU PRN PRN IV NAUSEA, MRX1 Last administered on 11/28/16 13:42; Start 11/28/16 at 07:00; Stop 11/28/16 at 18:00 ; Status DC Cefoxitin Sodium 2 gm/Sodium Chloride 100 ml @ 200 mls/hr 1X PREOP IV ; Start 11/27/16 at 19:15; Stop 11/27/16 at 19:15; Status DC Cefoxitin Sodium 2 gm/Sodium Chloride 100 ml @ 200 mls/hr 1X PREOP ONCE IV Last administered on 11/28/16 09:15; Start 11/28/16 at 06:00; Stop 11/28/16 at 06:29; Status DC Fentanyl Citrate (Fentanyl 2ml Vial) 50 mcg PRN Q2HR PRN IV SEVERE PAIN Last administered on 12/02/16 19:58; Start 11/27/16 at 23:00; Stop 12/02/16 at 20:17 ; Status DC Fentanyl Citrate (Fentanyl 2ml Vial) 25 mcg PRN Q2HR PRN IV MODERATE PAIN Last administered on 12/05/16 08:52; Start 11/27/16 at 23:00; Stop 12/05/16 at 09:49 ; Status DC Ondansetron HCl (Zofran) 4 mg PRN Q6HRS PRN IV NAUSEA/VOMITING; Start 11/28/16 at 03:45; Status Cancel Ondansetron HCl (Zofran) 4 mg PRN Q6HRS PRN IV NAUSEA/VOMITING Last administered on 11/29/16 12:25; Start 11/28/16 at 04:00; Stop 11/29/16 at 14:02 ; Status DC Ondansetron HCl (Zofran) 4 mg PRN Q6HRS PRN IV NAUSEA/VOMITING; Start 11/28/16 at 07:00; Stop 11/28/16 at 19:00; Status DC Bupivacaine HCl/ Epinephrine Bitart (Marcaine-Epi 0.5%-[id number]) 50 ml STK-MED ONCE .ROUTE ; Start 11/28/16 at 07:52; Stop 11/28/16 at 07:53; Status DC Fentanyl Citrate (Fentanyl 2ml Vial) 100 mcg STK-MED ONCE .ROUTE ; Start at 08:39; Stop 11/28/16 at 08:40; Status DC Rocuronium Clay (Zemuron) 100 mg STK-MED ONCE .ROUTE ; Start 11/28/16 at 08: 39; Stop 11/28/16 at 08:40; Status DC Cefoxitin Sodium 100 ml @ As Directed STK-MED ONCE IV ; Start 11/28/16 at 08:39 ; Stop 11/28/16 at 08:40; Status DC Dexamethasone Sodium Phosphate (Decadron) 20 mg STK-MED ONCE .ROUTE ; Start at 08:39; Stop 11/28/16 at 08:40; Status DC Ondansetron HCl (Zofran) 4 mg STK-MED ONCE .ROUTE ; Start 11/28/16 at 08:39; Stop 11/28/16 at 08:40; Status DC Propofol 20 ml @ As Directed STK-MED ONCE IV ; Start 11/28/16 at 08:39; Stop at 08:40; Status DC Lidocaine HCl (Lidocaine Pf 2% Vial) 5 ml STK-MED ONCE .ROUTE ; Start 11/28/16 at 08:39; Stop 11/28/16 at 08:40; Status DC Midazolam HCl (Versed) 2 mg STK-MED ONCE .ROUTE ; Start 11/28/16 at 09:00; Stop 11/28/16 at 09:01; Status DC Fentanyl Citrate (Fentanyl 5ml Vial) 250 mcg STK-MED ONCE .ROUTE ; Start at 09:28; Stop 11/28/16 at 09:29; Status DC Sevoflurane (Ultane) 90 ml STK-MED ONCE IH ; Start 11/28/16 at 09:59; Stop 11/28 at 10:00; Status DC Glycopyrrolate (Robinul) 1 mg STK-MED ONCE .ROUTE ; Start 11/28/16 at 12:18; Stop 11/28/16 at 12:19; Status DC Neostigmine Methylsulfate (Bloxiverz) 10 mg STK-MED ONCE .ROUTE ; Start at 12:18; Stop 11/28/16 at 12:19; Status DC Fentanyl Citrate (Fentanyl 2ml Vial) 100 mcg STK-MED ONCE .ROUTE ; Start at 13:16; Stop 11/28/16 at 13:17; Status DC Hydromorphone HCl (Dilaudid) 2 mg STK-MED ONCE .ROUTE ; Start 11/28/16 at 13:27 ; Stop 11/28/16 at 13:28; Status DC Enoxaparin Sodium (Lovenox 40mg Syringe) 40 mg Q24H SQ Last administered on 08:26; Start 11/29/16 at 08:00; Stop 11/30/16 at 21:30; Status DC Sodium Chloride (Normal Saline Flush) 3 ml QSHIFT PRN IV AFTER MEDS AND BLOOD DRAWS; Start 11/28/16 at 13:30 Ringer's Solution 1,000 ml @ 100 mls/hr Q10H IV ; Start 11/28/16 at 13:26; Stop 11/30/16 at 10:52; Status DC Naloxone HCl (Narcan) 0.4 mg PRN Q2MIN PRN IV SEE INSTRUCTIONS; Start 11/28/16 at 13:30 Sodium Chloride 1,000 ml @ 25 mls/hr Q24H IV Last administered on 11/30/16 05 :55; Start 11/28/16 at 13:26; Stop 11/30/16 at 10:52; Status DC Hydromorphone HCl 30 ml @ 0 mls/hr CONT PRN PRN IV PROTOCOL Last administered on 11/29/16 18:35; Start 11/28/16 at 13:30; Stop 11/30/16 at 10:52; Status DC Ondansetron HCl (Zofran) 4 mg PRN Q6HRS PRN IV NAUESA, 1ST CHOICE Last administered on 12/05/16 03:43; Start 11/28/16 at 13:30 Fentanyl Citrate (Fentanyl 2ml Vial) 100 mcg STK-MED ONCE .ROUTE ; Start at 13:36; Stop 11/28/16 at 13:37; Status DC Prochlorperazine Edisylate (Compazine) 10 mg STK-MED ONCE .ROUTE ; Start at 13:37; Stop 11/28/16 at 13:38; Status DC Ibuprofen (Motrin) 200 mg PRN Q6HRS PRN PO INFLAMMATION Last administered on 23:09; Start 11/29/16 at 08:30 Albuterol Sulfate (Ventolin Neb Soln) 2.5 mg RTQID NEB Last administered on 16:33; Start 11/30/16 at 08:00; Stop 11/30/16 at 17:18; Status DC Acetaminophen/ Hydrocodone Bitart (Lortab 7.5/325) 1 tab PRN Q6HRS PRN PO PAIN Last administered on 12/04/16 12:43; Start 11/30/16 at 15:15 Acetaminophen/ Hydrocodone Bitart (Lortab 7.5/325) 2 tab PRN Q6HRS PRN PO PAIN Last administered on 12/06/16 06:11; Start 11/30/16 at 15:15 Albuterol Sulfate (Ventolin Neb Soln) 2.5 mg RTQID NEB ; Start 11/30/16 at 20:00 ; Stop 11/30/16 at 20:00; Status DC Albuterol Sulfate (Ventolin Neb Soln) 2.5 mg PRN QID PRN NEB SHORTNESS OF BREATH Last administered on 11/30/16 17:35; Start 11/30/16 at 17:20 Piperacillin Sod/ Tazobactam Sod 3.375 gm/Sodium Chloride 50 ml @ 100 mls/hr Q6HRS IV Last administered on 12/01/16 05:41; Start 11/30/16 at 18:00; Stop at 11:07; Status DC Acetaminophen (Acetaminophen Supp) 650 mg PRN Q6HRS PRN GA MILD PAIN / TEMP; Start 11/30/16 at 17:30 Iohexol (Omnipaque 300 Mg/ml) 75 ml 1X ONCE IV Last administered on 11/30/16 17:46; Start 11/30/16 at 17:45; Stop 11/30/16 at 17:46; Status DC Acetaminophen (Tylenol) 650 mg PRN Q6HRS PRN PO FEVER > 101 Last administered on 12/04/16 12:42; Start 11/30/16 at 17:30 Info (Do NOT chart on this entry -- for MONITORING) 1 each PRN DAILY PRN MC SEE COMMENTS; Start 11/30/16 at 17:45; Stop 12/02/16 at 17:44; Status DC Vancomycin HCl 1 gm/Sodium Chloride 250 ml @ 250 mls/hr 1X STAT IV ; Start at 18:19; Stop 11/30/16 at 19:18; Status UNV Budesonide (Pulmicort) 0.5 mg RTBID NEB ; Start 11/30/16 at 20:00; Stop at 20:56; Status DC Vancomycin HCl 1 gm/Sodium Chloride 250 ml @ 250 mls/hr 1X ONCE IV Last administered on 11/30/16 20:36; Start 11/30/16 at 18:45; Stop 11/30/16 at 19:44 ; Status DC Norepinephrine Bitartrate 250 ml @ As Directed STK-MED ONCE IV ; Start at 19:52; Stop 11/30/16 at 19:53; Status DC Rocuronium Clay (Zemuron) 50 mg STK-MED ONCE .ROUTE ; Start 11/30/16 at 20:00 ; Stop 11/30/16 at 20:01; Status DC Propofol 100 ml @ As Directed STK-MED ONCE IV ; Start 11/30/16 at 20:20; Stop 11/30/16 at 20:21; Status DC Hydrocortisone Sodium Succinate (Solu-CORTEF) 50 mg Q6HRS IV Last administered on 12/01/16 05:42; Start 11/30/16 at 20:15; Stop 12/01/16 at 08:11; Status DC Norepinephrine Bitartrate 250 ml @ 0 mls/hr CONT PRN IV SEE I/O RECORD Last administered on 11/30/16 20:38; Start 11/30/16 at 20:15; Stop 12/03/16 at 11:23 ; Status DC Sodium Chloride 1,000 ml @ 1,000 mls/hr 1X ONCE IV Last administered on 20:40; Start 11/30/16 at 20:15; Stop 11/30/16 at 21:14; Status DC Sodium Chloride 1,000 ml @ 1,000 mls/hr 1X ONCE IV Last administered on 20:37; Start 11/30/16 at 20:15; Stop 11/30/16 at 21:14; Status DC Sodium Chloride 1,000 ml @ 1,000 mls/hr 1X ONCE IV Last administered on 20:36; Start 11/30/16 at 20:15; Stop 11/30/16 at 21:14; Status DC Propofol 100 ml @ 0 mls/hr CONT PRN IV SEE I/O RECORD Last administered on 12/02 15:57; Start 11/30/16 at 20:15; Stop 12/03/16 at 11:23; Status DC Albuterol Sulfate (Ventolin Neb Soln) 2.5 mg RTQID NEB Last administered on 07:27; Start 12/01/16 at 08:00 Heparin Sodium (Porcine) (Heparin Sodium) 7,750 unit 1X ONCE IV Last administered on 11/30/16 21:55; Start 11/30/16 at 22:00; Stop 11/30/16 at 22:01 ; Status DC Heparin Sodium/ Dextrose 500 ml @ 0 mls/hr CONT PRN IV SEE I/O RECORD Last administered on 12/03/16 01:28; Start 11/30/16 at 21:30; Stop 12/03/16 at 08:37 ; Status DC Heparin Sodium (Porcine) (Heparin Sodium) 2,900 unit PRN Q6HRS PRN IV FOR UFH LEVEL LESS THAN 0.2; Start 11/30/16 at 21:30; Stop 12/03/16 at 08:37; Status DC Heparin Sodium (Porcine) (Heparin Sodium) 1,450 unit PRN Q6HRS PRN IV FOR UFH LEVEL 0.2 - 0.29 Last administered on 12/01/16 17:29; Start 11/30/16 at 21:30; Stop 12/03/16 at 08:37; Status DC Rocuronium Clay (Zemuron) 50 mg 1X ONCE IV Last administered on 11/30/16 20:05; Start 12/01/16 at 04:45; Stop 12/01/16 at 04:46; Status DC Hydrocortisone Sodium Succinate (Solu-CORTEF) 50 mg Q8HRS IV Last administered on 12/03/16 05:52; Start 12/01/16 at 14:00; Stop 12/03/16 at 10:52; Status DC Famotidine (Pepcid) 20 mg BID IVP Last administered on 12/03/16 08:42; Start 12/01/16 at 10:00; Stop 12/03/16 at 11:19; Status DC Potassium Chloride (KCl Oral Soln) 20 meq 1X ONCE PEG Last administered on 10:05; Start 12/01/16 at 10:00; Stop 12/01/16 at 10:01; Status DC Vancomycin HCl (Vanco Per Pharmacy) 1 each PRN DAILY PRN MC SEE COMMENTS Last administered on 12/03/16 09:35; Start 12/01/16 at 10:15; Stop 12/04/16 at 08:48 ; Status DC Vancomycin HCl 1.5 gm/Sodium Chloride 500 ml @ 250 mls/hr Q12H IV Last administered on 12/03/16 23:09; Start 12/01/16 at 10:30; Stop 12/04/16 at 08:48 ; Status DC Vancomycin HCl 1 each 1X ONCE MC Last administered on 12/02/16 22:00; Start 12/02/16 at 22:00; Stop 12/02/16 at 22:01; Status DC Piperacillin Sod/ Tazobactam Sod 4.5 gm/Sodium Chloride 100 ml @ 200 mls/hr Q6HRS IV Last administered on 12/04/16 05:31; Start 12/01/16 at 12:00; Stop at 08:48; Status DC Etomidate (Amidate) 20 mg STK-MED ONCE IV ; Start 11/30/16 at 12:00; Stop at 05:57; Status DC Furosemide (Lasix) 20 mg 1X PRN PRN IV Blood transfusion Last administered on 15:56; Start 12/02/16 at 08:00; Stop 12/03/16 at 07:59; Status DC Sodium Chloride 70 meq/Potassium Acetate 70 meq/ Potassium Phosphate 13.6 mmol/ Magnesium Sulfate 10 meq/ Calcium Gluconate 10 meq/ Multivitamins 10 ml/Chromium / Copper/Manganese/ Seleni/Zn 1 ml/ Total Parenteral Nutrition/Amino Acids/ Dextrose 1,512 ml @ 62.999 mls/ hr TPN CONT IV ; Start 12/02/16 at 22:00; Stop 12/03/16 at 10:44; Status DC Info 1 each PRN DAILY PRN MC SEE COMMENTS Last administered on 12/02/16 14:50 ; Start 12/02/16 at 14:00; Stop 12/03/16 at 10:45; Status DC Midazolam HCl 100 ml @ 0 mls/hr CONT PRN IV SEE I/O RECORD; Start 12/02/16 at 15:15; Stop 12/03/16 at 11:23; Status DC Amino Acids/ Glycerin/ Electrolytes 1,000 ml @ 80 mls/hr [id number] IV Last administered on 12/04/16 05:30; Start 12/02/16 at 18:00; Stop 12/04/16 at 08:53 ; Status DC Sodium Bicarbonate 50 meq 1X ONCE IV Last administered on 12/02/16 20:12; Start 12/02/16 at 19:45; Stop 12/02/16 at 19:46; Status DC Fentanyl Citrate (Fentanyl 2ml Vial) 100 mcg PRN Q2HR PRN IV SEVERE PAIN Last administered on 12/03/16 12:36; Start 12/02/16 at 20:15; Stop 12/04/16 at 08:46 ; Status DC Lorazepam (Ativan) 1 mg PRN Q6HRS PRN IV ANXIETY / AGITATION Last administered on 12/05/16 03:43; Start 12/02/16 at 20:15; Stop 12/05/16 at 09:46; Status DC Insulin Aspart (NovoLOG) 0-5 UNITS Q6HRS SQ Last administered on 12/03/16 08: 03; Start 12/03/16 at 12:00 Dextrose (Dextrose 50%-Water Syringe) 12.5 gm PRN Q15MIN PRN IV SEE COMMENTS; Start 12/03/16 at 06:30 Potassium Chloride 100 ml @ 100 mls/hr PRN Q1HR PRN IV HYPOKALEMIA; Start at 06:30 Potassium Chloride 100 ml @ 100 mls/hr PRN Q1HR PRN IV HYPOKALEMIA; Start at 06:30 Potassium Chloride 100 ml @ 100 mls/hr PRN Q1HR PRN IV K<2.5 Last administered on 12/03/16 18:04; Start 12/03/16 at 06:30 Enoxaparin Sodium (Lovenox Per Pharmacy Treatment Dosing) 1 each PRN DAILY PRN MC SEE COMMENTS; Start 12/03/16 at 08:45; Stop 12/03/16 at 16:42; Status DC Enoxaparin Sodium (Lovenox 100mg Syringe) 100 mg Q12HR SQ ; Start 12/03/16 at 09 :00; Stop 12/03/16 at 16:42; Status DC Info (Anti-Coagulation Monitoring By Pharmacy) 1 each PRN DAILY PRN MC SEE COMMENTS Last administered on 12/04/16 15:30; Start 12/03/16 at 08:45 Prednisone (Prednisone) 20 mg DAILY PO Last administered on 12/06/16 08:14; Start 12/05/16 at 09:00; Stop 12/06/16 at 09:01; Status DC Prednisone (Prednisone) 10 mg DAILY PO ; Start 12/07/16 at 09:00; Stop 12/08/16 at 09:01 Prednisone (Prednisone) 5 mg DAILY PO ; Start 12/09/16 at 09:00; Stop 12/10/16 at 09:01 Pantoprazole Sodium (Protonix) 40 mg DAILYAC PO ; Start 12/04/16 at 07:30; Status UNV Aspirin (Ecotrin) 81 mg DAILYWBKFT PO Last administered on 12/06/16 08:16; Start 12/04/16 at 08:00 Apixaban (Eliquis) 10 mg BID PO Last administered on 12/06/16 08:16; Start at 21:00; Stop 12/10/16 at 09:01 Apixaban (Eliquis) 5 mg BID PO ; Start 12/10/16 at 21:00 Potassium Chloride 100 ml @ 100 mls/hr Q1H IV Last administered on 12/04/16 13:45; Start 12/04/16 at 08:00; Stop 12/04/16 at 11:59; Status DC Fentanyl Citrate (Fentanyl 2ml Vial) 50 mcg PRN Q2HR PRN IV SEVERE PAIN Last administered on 12/05/16 02:38; Start 12/04/16 at 08:45; Stop 12/05/16 at 09:49 ; Status DC Potassium Chloride (Klor-Con) 20 meq TIDWMEALS PO Last administered on 08:54; Start 12/04/16 at 09:00 Linezolid (Zyvox) 600 mg BID PO Last administered on 12/06/16 08:53; Start at 09:00 Ciprofloxacin (Cipro) 500 mg BID PO Last administered on 12/06/16 08:15; Start 12/04/16 at 09:00 Active Scripts Active Hydrocodone-Apap 7.5-325 (Hydrocodone Bit/Acetaminophen) 1 Each Tablet 1 Tab PO PRN Q6HRS PRN 30 Days Levothyroxine Sodium 150 Mcg Tablet 1 Tab PO DAILY Bentyl (Dicyclomine Hcl) 10 Mg Capsule 20 Mg PO Q6HRS Reported Chantix (Varenicline Tartrate) 1 Mg Tablet 1 Mg PO BID Atorvastatin Calcium 20 Mg Tablet 40 Mg PO HS Vitamin D (Cholecalciferol (Vitamin D3)) 1,000 Unit Capsule 1,000 Unit PO DAILY Vitamin E 400 Unit Capsule 400 Unit PO DAILY Fish Oil ([place]-3 Fatty Acids) 500 Mg Capsule 500 Mg PO DAILY Magnesium Oxide 400 Mg Tablet 400 Mg PO QID Xanax (Alprazolam) 1 Mg Tablet 1 Mg PO QID Lasix (Furosemide) 40 Mg Tablet 40 Mg PO DAILY Aspirin 325 Mg Tablet 325 Mg PO DAILY Gabapentin 600 Mg Tablet 600 Mg PO TID Tizanidine Hcl 4 Mg Tablet 4 Mg PO QID Estradiol 1 Each Patch.tdwk 1 Each TD DAILY07 Omeprazole 20 Mg Tablet.dr 20 Mg PO DAILY07 Klor-Con (Potassium Chloride) 20 Meq Packet 20 Meq PO TID Proair Hfa Inhaler (Albuterol Sulfate) 8.5 Gm Hfa.aer.ad 8.5 Gm IH Q4HRS Advair 500-50 Diskus (Fluticasone/Salmeterol) 1 Each Disk.w.dev 1 Each IH BID Vitals/I & O Vital Sign - Last 24 Hours 12/05/16 12/05/16 12/05/16 12/05/16 10:47 11:00 13:04 14:46 Temp 98.7 98.7 Pulse 88 Resp 20 B/P (MAP) 112/76 (88) Pulse Ox 97 92 O2 Delivery Nasal Cannula Nasal Cannula Nasal Cannula Nasal Cannula O2 Flow Rate 2.0 4.0 2.0 2.0 12/05/16 12/05/16 12/05/16 12/05/16 15:02 19:00 19:50 20:00 Temp 97.7 98.7 97.7 98.7 Pulse 70 69 Resp 20 18 B/P (MAP) 101/59 (73) 113/63 (80) Pulse Ox 96 96 O2 Delivery Nasal Cannula Nasal Cannula Nasal Cannula Nasal Cannula O2 Flow Rate 4.0 2.0 2.0 2.0 12/05/16 12/05/16 12/05/16 12/06/16 20:50 21:50 23:00 03:00 Temp 97.9 98.1 97.9 98.1 Pulse 67 55 Resp 18 18 B/P (MAP) 111/53 (72) 150/83 (105) Pulse Ox 95 97 O2 Delivery Nasal Cannula Nasal Cannula Nasal Cannula O2 Flow Rate 2.0 2.0 2.0 1.0 12/06/16 12/06/16 12/06/16 12/06/16 06:11 07:11 07:29 07:35 Temp 97.0 97.0 Pulse 69 Resp 16 20 B/P (MAP) 137/78 (97) Pulse Ox 90 91 O2 Delivery Room Air Room Air Room Air Room Air NICOLAS HICKS MD Dec 06, 2016 09:44
[2016-12-06 09:52] LABS: HEMATOCRIT 35.1 % (36.0-47.0); HEMOGLOBIN 11.2 g/dL (12.0-15.5); RED BLOOD COUNT 4.08 x10^6/uL (3.50-5.40); RED CELL DISTRIBUTION WIDTH 15.3 % (11.5-14.5)
[2016-12-06] MEDS ORDERED: LINE600T PO (09:52)
[2016-12-06] MEDS ORDERED: CIPR250T30 PO (09:52)
--- NOTE | 2016-12-06 10:49 | PDOC ---
PULMONARY PROGRESS NOTES Subjective extubated 12/02 doing well on canula Vitals Vital Signs Date Time Temp Pulse Resp B/P (MAP) Pulse Ox O2 Delivery O2 Flow Rate FiO2 12/06/16 08:00 Room Air 12/06/16 07:35 97.0 69 20 137/78 (97) 91 97.0 12/06/16 03:00 1.0 General: Alert, No acute distress Lungs: Other (decrease bs) Cardiovascular: S1 Abdomen: Soft, Other (colostomy bag wit hno blood) Neuro Exam: Alert Extremities: No Edema Skin: Warm Labs Laboratory Tests Test 12/04/16 12:21 12/04/16 18:24 12/04/16 23:31 12/05/16 03:30 Glucose (Fingerstick) 110 mg/dL (70-99) 145 mg/dL (70-99) 77 mg/dL (70-99) Sodium Level 139 mmol/L (136-145) Potassium Level 3.3 mmol/L (3.5-5.1) Chloride Level 102 mmol/L (98-107) Carbon Dioxide Level 30 mmol/L (21-32) Anion Gap 7 (6-14) Blood Urea Nitrogen 9 mg/dL (7-20) Creatinine 0.7 mg/dL (0.6-1.0) Estimated GFR (Cockcroft-Gault) 85.6 Glucose Level 90 mg/dL (70-99) Calcium Level 8.4 mg/dL (8.5-10.1) Phosphorus Level 2.8 mg/dL (2.6-4.7) Magnesium Level 1.9 mg/dL (1.8-2.4) Test 12/05/16 06:11 12/05/16 11:57 12/05/16 18:06 12/06/16 00:07 Glucose (Fingerstick) 90 mg/dL (70-99) 145 mg/dL (70-99) 183 mg/dL (70-99) 139 mg/dL (70-99) Test 12/06/16 06:04 12/06/16 09:05 Glucose (Fingerstick) 95 mg/dL (70-99) White Blood Count 14.0 x10^3/uL (4.0-11.0) Red Blood Count 4.08 x10^6/uL (3.50-5.40) Hemoglobin 11.2 g/dL (12.0-15.5) Hematocrit 35.1 % (36.0-47.0) Mean Corpuscular Volume 86 fL (79-100) Mean Corpuscular Hemoglobin 27 pg (25-35) Mean Corpuscular Hemoglobin Concent 32 g/dL (31-37) Red Cell Distribution Width 15.3 % (11.5-14.5) Platelet Count 418 x10^3/uL (140-400) Sodium Level 136 mmol/L (136-145) Potassium Level 3.3 mmol/L (3.5-5.1) Chloride Level 97 mmol/L (98-107) Carbon Dioxide Level 32 mmol/L (21-32) Anion Gap 7 (6-14) Blood Urea Nitrogen 9 mg/dL (7-20) Creatinine 0.9 mg/dL (0.6-1.0) Estimated GFR (Cockcroft-Gault) 64.1 Glucose Level 130 mg/dL (70-99) Calcium Level 9.0 mg/dL (8.5-10.1) Laboratory Tests Test 12/05/16 11:57 12/05/16 18:06 12/06/16 00:07 12/06/16 06:04 Glucose (Fingerstick) 145 mg/dL (70-99) 183 mg/dL (70-99) 139 mg/dL (70-99) 95 mg/dL (70-99) Test 12/06/16 09:05 White Blood Count 14.0 x10^3/uL (4.0-11.0) Red Blood Count 4.08 x10^6/uL (3.50-5.40) Hemoglobin 11.2 g/dL (12.0-15.5) Hematocrit 35.1 % (36.0-47.0) Mean Corpuscular Volume 86 fL (79-100) Mean Corpuscular Hemoglobin 27 pg (25-35) Mean Corpuscular Hemoglobin Concent 32 g/dL (31-37) Red Cell Distribution Width 15.3 % (11.5-14.5) Platelet Count 418 x10^3/uL (140-400) Sodium Level 136 mmol/L (136-145) Potassium Level 3.3 mmol/L (3.5-5.1) Chloride Level 97 mmol/L (98-107) Carbon Dioxide Level 32 mmol/L (21-32) Anion Gap 7 (6-14) Blood Urea Nitrogen 9 mg/dL (7-20) Creatinine 0.9 mg/dL (0.6-1.0) Estimated GFR (Cockcroft-Gault) 64.1 Glucose Level 130 mg/dL (70-99) Calcium Level 9.0 mg/dL (8.5-10.1) Medications Active Scripts Medications Dose Route/Sig Max Daily Dose Days Date Category Hydrocodone-Apap 7.5-325 (Hydrocodone Bit/Acetaminophen) 1 Each Tablet 1 Tab PO PRN Q6HRS PRN 30 11/27/16 Rx Levothyroxine Sodium 150 Mcg Tablet 1 Tab PO DAILY 11/27/16 Rx Chantix (Varenicline Tartrate) 1 Mg Tablet 1 Mg PO BID 11/26/16 Reported Bentyl (Dicyclomine Hcl) 10 Mg Capsule 20 Mg PO Q6HRS 11/24/14 Rx Atorvastatin Calcium 20 Mg Tablet 40 Mg PO HS 04/26/13 Reported Vitamin D (Cholecalciferol (Vitamin D3)) 1,000 Unit Capsule 1,000 Unit PO DAILY 04/26/13 Reported Vitamin E 400 Unit Capsule 400 Unit PO DAILY 04/26/13 Reported Fish Oil (Elbe-3 Fatty Acids) 500 Mg Capsule 500 Mg PO DAILY 04/26/13 Reported Magnesium Oxide 400 Mg Tablet 400 Mg PO QID 04/26/13 Reported Xanax (Alprazolam) 1 Mg Tablet 1 Mg PO QID 04/26/13 Reported Lasix (Furosemide) 40 Mg Tablet 40 Mg PO DAILY 04/26/13 Reported Aspirin 325 Mg Tablet 325 Mg PO DAILY 04/26/13 Reported Gabapentin 600 Mg Tablet 600 Mg PO TID 04/26/13 Reported Tizanidine Hcl 4 Mg Tablet 4 Mg PO QID 04/26/13 Reported Estradiol 1 Each Patch.tdwk 1 Each TD DAILY07 04/26/13 Reported Omeprazole 20 Mg Tablet.dr 20 Mg PO DAILY07 04/26/13 Reported Klor-Con (Potassium Chloride) 20 Meq Packet 20 Meq PO TID 04/26/13 Reported Proair Hfa Inhaler (Albuterol Sulfate) 8.5 Gm Hfa.aer.ad 8.5 Gm IH Q4HRS 04/26/13 Reported Advair 500-50 Diskus (Fluticasone/Salmeterol) 1 Each Disk.w.dev 1 Each IH BID 04/26/[address] ABD/PELVIS no obvious bleed Impression . 1. Acute respiratory failure, multifactorial in etiology including bacterial pneumonia (hcap, aspiration), septic shock, underlying chronic obstructive pulmonary disease with acute exacerbation, extubated 12/03. Doing well on canula 2. Abnormal chest x-ray and CT of the chest with mild GG infiltrates and LLL consolidation 3. s/p septic shock, 4. Pulmonary embolism. (small RUL? clinical significance) 5. Status post exploratory laparotomy and revision of ileostomy. 6. Leukocytosis. 7. Coronary artery disease. 8. Obesity. 9. Anemia, no obvious blood loss, improved post TX, neg ct abd/pelvis Plan . 1. Nasal canula. 2. oral nutrition 3. replace K 4. Continue Pulmicort./nebs 5. Solu-Cortef , dc'd .changed to PO steroids 6. Continue Protonix. 7. on Eliquis.( PE is not so clinically significant). probably 6 weeks of AC sufficient, repeat CTA in 6 weeks 8. f/u with me in Nov with CTA chest prior 10. dc home MARQUIS COVARRUBIAS MD Dec 06, 2016 10:49
[2016-12-06 11:00] VITALS: BP 112/62
[2016-12-06] MEDS: IBUPROFEN 200 MG TABLET. PO PRN (11:41)
[2016-12-06] MEDS: ONDANSETRON PF 4 MG/2 ML VIAL. IV PRN (11:42)
[2016-12-06] MEDS: DICYCLOMINE HCL 10 MG CAPSULE PO PRN (11:42)
--- NOTE | 2016-12-06 13:42 | PDOC ---
SURGICAL PROGRESS NOTE Subjective Pt with concerns about pain meds at home. Encouraged her to continue communication with Dr. Leon regarding this. [place] diet well and having good ostomy output Vital Signs Vital Signs Date Time Temp Pulse Resp B/P (MAP) Pulse Ox O2 Delivery O2 Flow Rate FiO2 12/06/16 11:07 Room Air 12/06/16 11:00 97.5 73 20 112/62 (79) 94 97.5 12/06/16 03:00 1.0 General: Alert, Oriented X3, Cooperative, No acute distress Abdomen: Soft Labs Laboratory Tests Test 12/04/16 18:24 12/04/16 23:31 12/05/16 03:30 12/05/16 06:11 Glucose (Fingerstick) 145 mg/dL (70-99) 77 mg/dL (70-99) 90 mg/dL (70-99) Sodium Level 139 mmol/L (136-145) Potassium Level 3.3 mmol/L (3.5-5.1) Chloride Level 102 mmol/L (98-107) Carbon Dioxide Level 30 mmol/L (21-32) Anion Gap 7 (6-14) Blood Urea Nitrogen 9 mg/dL (7-20) Creatinine 0.7 mg/dL (0.6-1.0) Estimated GFR (Cockcroft-Gault) 85.6 Glucose Level 90 mg/dL (70-99) Calcium Level 8.4 mg/dL (8.5-10.1) Phosphorus Level 2.8 mg/dL (2.6-4.7) Magnesium Level 1.9 mg/dL (1.8-2.4) Test 12/05/16 11:57 12/05/16 18:06 12/06/16 00:07 12/06/16 06:04 Glucose (Fingerstick) 145 mg/dL (70-99) 183 mg/dL (70-99) 139 mg/dL (70-99) 95 mg/dL (70-99) Test 12/06/16 09:05 12/06/16 11:55 White Blood Count 14.0 x10^3/uL (4.0-11.0) Red Blood Count 4.08 x10^6/uL (3.50-5.40) Hemoglobin 11.2 g/dL (12.0-15.5) Hematocrit 35.1 % (36.0-47.0) Mean Corpuscular Volume 86 fL (79-100) Mean Corpuscular Hemoglobin 27 pg (25-35) Mean Corpuscular Hemoglobin Concent 32 g/dL (31-37) Red Cell Distribution Width 15.3 % (11.5-14.5) Platelet Count 418 x10^3/uL (140-400) Sodium Level 136 mmol/L (136-145) Potassium Level 3.3 mmol/L (3.5-5.1) Chloride Level 97 mmol/L (98-107) Carbon Dioxide Level 32 mmol/L (21-32) Anion Gap 7 (6-14) Blood Urea Nitrogen 9 mg/dL (7-20) Creatinine 0.9 mg/dL (0.6-1.0) Estimated GFR (Cockcroft-Gault) 64.1 Glucose Level 130 mg/dL (70-99) Calcium Level 9.0 mg/dL (8.5-10.1) Glucose (Fingerstick) 101 mg/dL (70-99) Laboratory Tests Test 12/05/16 18:06 12/06/16 00:07 12/06/16 06:04 12/06/16 09:05 Glucose (Fingerstick) 183 mg/dL (70-99) 139 mg/dL (70-99) 95 mg/dL (70-99) White Blood Count 14.0 x10^3/uL (4.0-11.0) Red Blood Count 4.08 x10^6/uL (3.50-5.40) Hemoglobin 11.2 g/dL (12.0-15.5) Hematocrit 35.1 % (36.0-47.0) Mean Corpuscular Volume 86 fL (79-100) Mean Corpuscular Hemoglobin 27 pg (25-35) Mean Corpuscular Hemoglobin Concent 32 g/dL (31-37) Red Cell Distribution Width 15.3 % (11.5-14.5) Platelet Count 418 x10^3/uL (140-400) Sodium Level 136 mmol/L (136-145) Potassium Level 3.3 mmol/L (3.5-5.1) Chloride Level 97 mmol/L (98-107) Carbon Dioxide Level 32 mmol/L (21-32) Anion Gap 7 (6-14) Blood Urea Nitrogen 9 mg/dL (7-20) Creatinine 0.9 mg/dL (0.6-1.0) Estimated GFR (Cockcroft-Gault) 64.1 Glucose Level 130 mg/dL (70-99) Calcium Level 9.0 mg/dL (8.5-10.1) Test 12/06/16 11:55 Glucose (Fingerstick) 101 mg/dL (70-99) Problem List Problems Medical Problems: (1) Abdominal pain Status: Acute Assessment/Plan s/p hernia repairs OK to d/c f/u in two weeks. Problems: LETICIA KAUFFMAN MD Dec 06, 2016 13:42
--- NOTE | 2016-12-06 15:35 | DS ---
DATE OF DISCHARGE: 12/06/2016 CHIEF COMPLAINT: Abdominal pain with nausea and vomiting. HISTORY OF PRESENT ILLNESS: The patient is a 61-year-old female with an ileostomy, who presented to the Emergency Room with the above complaint. She reported the onset of abdominal pain and emesis early on the day of admission. She stated that she had not had any drainage from her ostomy during the day, and was having a significant amount of feculent emesis. Initial evaluation in the Emergency Room showed the patient to be moderately uncomfortable. A CT of the abdomen and pelvis did not show acute infection or evidence of obstruction, and the patient was admitted for further treatment. HOSPITAL COURSE: The patient was admitted and seen in consultation by GI and by Dr. Robertson, her usual general surgeon. Dr. Robertson felt that the patient had a significant parastomal hernia present and also an incisional hernia. When the patient's discomfort and the lack of ostomy output persisted, Dr. Robertson recommended surgery, to which the patient agreed. On 11/28/2016, Dr. Robertson performed an exploratory laparotomy with a revision of the patient's ileostomy and a repair of her parastomal and incisional hernias. The patient initially was stable postoperatively and began to have a good output from her new stoma; however, she developed some acute respiratory failure with hypoxia. Pulmonary Medicine, Infectious Disease and Cardiology were consulted. The patient required intubation and mechanical ventilation for several days. Chest x-ray done on 11/30/2016 showed a left lower lobe consolidation, felt to be pneumonia. The patient also had a CT angiography of her chest, which did show consolidation and also a small right upper lobe segmental pulmonary embolism. The patient was started on a heparin drip which was eventually transitioned to oral anticoagulants. She was treated with broad-spectrum antibiotics for her presumed healthcare-associated pneumonia. She had good improvement in her respiratory status and was able to be extubated after several days. Her respiratory status continued to improve after that and she is now breathing comfortably on room air and is not hypoxic during the day. She chronically uses oxygen at bedtime. The patient's sputum was positive for methicillin-resistant Staphylococcus aureus which the patient does have a history of. Blood cultures remained negative and medications were adjusted per Dr. Shea's recommendations. The patient was noted to be anemic several days postoperative. There was no evidence of active bleeding at that time and it was felt to represent some acute blood loss from her surgery and some ongoing fluid shifts. She received 2 units of packed red blood cells in transfusion and her hemoglobin remained stable afterwards with no evidence of any ongoing bleeding. The patient had some bradycardia when she was in the Intensive Care Unit. She was seen by Cardiology, but there was no evidence of an acute cardiac event. The propofol that was being given for sedation was discontinued and her bradycardia slowly resolved. An echocardiogram on 12/03/2016 showed a preserved ejection fraction of 60% to 65% with normal segmental wall motion and some mildly elevated pulmonary artery pressure. The patient initially required some pressors for blood pressure support during the first day of her acute respiratory failure, but this improved and the pressors were discontinued. Dr. Hancock felt that the pulmonary embolism seen on the CTA was not very clinically significant and he feels that 6 weeks of oral anticoagulation should be sufficient for her. The patient does not have a history of previous pulmonary emboli, and her venous Dopplers of her lower extremities were negative for DVTs. She was started on Xarelto, but this was changed to Eliquis per the pharmacy recommendations, and this will be continued for 6 weeks. The patient has chronic back pain and chronic anxiety. She had some worsening of these symptoms with her acute illness, but this has gradually improved. IV medications were discontinued and she is now stable on oral medication. She is advised to resume her usual dose of hydrocodone at discharge. Dr. Robertson does not feel she needs extra pain medicine postoperatively. The patient had some debility, but this is improving and she is now walking well in the starks. She feels well able to return home and does have some ongoing help at home. She will be discharged to home today, to complete 7 days of oral antibiotics and a short prednisone taper. The patient has a long smoking history, but had recently quit smoking cigarettes with Chantix. The Chantix was continued during her hospital stay and she is strongly advised to continue with at home and to refrain from resuming smoking now. FINAL DIAGNOSES: Parastomal hernia with intermittent obstruction, ventral incisional hernia, acute respiratory failure, healthcare-associated pneumonia, sepsis, chronic obstructive pulmonary disease, pulmonary embolism, chronic back pain, chronic anxiety, chronic intermittent urinary retention, tobaccoism. DISCHARGE MEDICATIONS: Prednisone 10 mg daily for 3 days, then 5 mg daily for 3 days, then discontinue; Eliquis 10 mg b.i.d. x 4 more days, then decrease to 5 mg b.i.d., ongoing, total of 6 weeks treatment; Cipro 500 mg b.i.d. x 7 days; Zyvox 600 mg p.o. b.i.d. x 7 days; albuterol p.r.n.; Xanax 1 mg q.i.d. p.r.n.; aspirin 325 mg daily; atorvastatin 40 mg daily; [id number] vitamin D; dicyclomine 20 mg q.6 hours p.r.n. abdominal pain; estradiol 1 patch weekly; Advair 500/50 one puff b.i.d.; furosemide 40 mg daily; gabapentin 600 mg t.i.d. Hydrocodone 7.5/325 one every 6 hours as needed for pain. The patient has this medication at home already from a previous refill, prior to her admission. Levothyroxine 150 mcg daily, magnesium oxide 400 mg q.i.d., omeprazole 20 mg daily, potassium 20 mEq t.i.d., tizanidine 4 mg q.i.d., Chantix 1 mg b.i.d. FOLLOWUP: Follow up with Dr. Leon in 2 weeks. Follow up with Dr. Hancock in 6 months. Follow up with other consultants as advised. NICOLAS LEON MD DR: HANNAH/joshua JOB#: [id number] / [id number] MICHELLE
[2016-12-07] MEDS ORDERED: predniSONE 10 MG TABLET PO SCH (09:00)
[2016-12-09] MEDS ORDERED: predniSONE 5 MG TABLET PO SCH (09:00)
[2016-12-10] MEDS ORDERED: APIXABAN 5 MG TABLET. PO SCH (21:00)
== END 2016-12-06 14:40 | disposition home or self-care (01) | DRG 329 ==
LOC: ER 17:32 → 4 NORTH 19:19 → 1 WEST ICU 11-30 18:11 → 4 NORTH 12-03 17:30
PROVIDERS: ADMIT Family Medicine; ATTEND Family Medicine
PROC: 0WQF0ZZ Repair Abdominal Wall, Open Approach (ICD-10-PCS; 2016-11-28)
PROC: 0D1B0Z4 Bypass Ileum to Cutaneous, Open Approach (ICD-10-PCS; 2016-11-28)
PROC: 0DBB0ZZ Excision of Ileum, Open Approach (ICD-10-PCS; 2016-11-28)
PROC: 0DNE0ZZ Release Large Intestine, Open Approach (ICD-10-PCS; principal; 2016-11-28 09:00)
PROC: 5A1945Z Respiratory Ventilation, 24-96 Consecutive Hours (ICD-10-PCS; 2016-11-30)
PROC: 0BH17EZ Insertion of Endotracheal Airway into Trachea, Via Natural or Artificial Opening (ICD-10-PCS; 2016-11-30)
PROC: 30233N1 Transfusion of Nonautologous Red Blood Cells into Peripheral Vein, Percutaneous Approach (ICD-10-PCS; 2016-12-02)
DX: K43.3 Parastomal hernia with obstruction, without gangrene (principal); I26.99 Other pulmonary embolism without acute cor pulmonale; J96.01 Acute respiratory failure with hypoxia; R65.21 Severe sepsis with septic shock; K63.1 Perforation of intestine (nontraumatic); A41.9 Sepsis, unspecified organism; J44.0 Chronic obstructive pulmonary disease with (acute) lower respiratory infection; I13.0 Hypertensive heart and chronic kidney disease with heart failure and stage 1 through stage 4 chronic kidney disease, or unspecified chronic kidney disease; R13.10 Dysphagia, unspecified; J18.9 Pneumonia, unspecified organism; J44.1 Chronic obstructive pulmonary disease with (acute) exacerbation; K50.90 Crohn's disease, unspecified, without complications; D62 Acute posthemorrhagic anemia; I50.9 Heart failure, unspecified; K43.2 Incisional hernia without obstruction or gangrene; Z88.8 Allergy status to other drugs, medicaments and biological substances; E03.9 Hypothyroidism, unspecified; E66.9 Obesity, unspecified; Z68.33 Body mass index [BMI] 33.0-33.9, adult; E78.5 Hyperlipidemia, unspecified; E87.6 Hypokalemia; F17.200 Nicotine dependence, unspecified, uncomplicated; F32.9 Major depressive disorder, single episode, unspecified; F41.9 Anxiety disorder, unspecified; G89.4 Chronic pain syndrome; I25.10 Atherosclerotic heart disease of native coronary artery without angina pectoris; I25.2 Old myocardial infarction; I48.91 Unspecified atrial fibrillation; I87.2 Venous insufficiency (chronic) (peripheral); K21.9 Gastro-esophageal reflux disease without esophagitis; K66.0 Peritoneal adhesions (postprocedural) (postinfection); M79.7 Fibromyalgia; N18.9 Chronic kidney disease, unspecified; R33.9 Retention of urine, unspecified; Y95 Nosocomial condition; Z96.642 Presence of left artificial hip joint; Z96.651 Presence of right artificial knee joint; B95.62 Methicillin resistant Staphylococcus aureus infection as the cause of diseases classified elsewhere; M19.90 Unspecified osteoarthritis, unspecified site; M54.9 Dorsalgia, unspecified; F17.210 Nicotine dependence, cigarettes, uncomplicated; Z99.81 Dependence on supplemental oxygen; Z43.2 Encounter for attention to ileostomy; Z82.3 Family history of stroke; Z82.49 Family history of ischemic heart disease and other diseases of the circulatory system; Z86.14 Personal history of Methicillin resistant Staphylococcus aureus infection; Z86.19 Personal history of other infectious and parasitic diseases; Z86.73 Personal history of transient ischemic attack (TIA), and cerebral infarction without residual deficits; Z86.74 Personal history of sudden cardiac arrest; Z90.49 Acquired absence of other specified parts of digestive tract; Z90.710 Acquired absence of both cervix and uterus; Z93.3 Colostomy status; Z95.5 Presence of coronary angioplasty implant and graft
CPT/HCPCS: 36415; 36569; 36600; 51701; 71010; 71275; 74000; 74176; 74177; 74250; 80048; 80053; 80202; 81001; 82805; 82962; 83605; 83690; 83735; 84100; 84132; 84443; 84478; 84484; 85007; 85025; 85027; 85520; 86850; 86900; 86901; 86920; 87040; 87070; 87186; 87205; 87641; 88304; 93005; 93308; 93970; 94002; 94003; 94250; 94640; 94760; 96361; 96374; 96375; 97168; J0694; J0780; J1100; J1170; J1644; J1650; J1720; J1815; J2060; J2250; J2405; J2543; J2704; J2710; J3010; J3370; J3480; J3490; J7030; J7040; J7050; J7120; J7512; J7613; J7626; P9016; Q9967; S0028; 92610; 97110; 97116; 97530; 97535; 99285-25; J2001

== ENCOUNTER → 2017-01-31 | Outpatient (CLI) | payer OTHER ==
[~2017-01-31] MED LIST changes: +CIPR250T30 PO; +HYDR-2762 PO; +IOHEXOL 300 MG/ML 100ML VIAL. IV ONE; +LEVO150T5 PO; +LINE600T PO; +VARE1TAB21 PO
[2017-01-31 08:57] LABS: CREATININE 0.8 mg/dL (0.6-1.0); GFR 73.4
--- NOTE | 2017-01-31 10:10 | RAD ---
CTA chest with contrast 01/31/2017 Clinical indication: Shortness of breath Comparison: CTA chest 11/30/2016. Technique: Multiple CTA images were obtained of the chest following the intravenous administration of 75 mL Omnipaque 300. MIPS were obtained of the chest. PQRS Compliance Statement: One or more of the following individualized dose reduction techniques were utilized for this examination: 1. Automated exposure control 2. Adjustment of the mA and/or kV according to patient size 3. Use of iterative reconstruction technique Findings: CTA chest: Heart size is normal without significant pericardial effusion. The thoracic aorta is normal in caliber. No central or major segmental pulmonary artery filling defect. No evidence of right heart strain. Coronary artery calcifications are noted. The central airways are patent and. Mild retained secretions and subsegmental bronchi of the right lower lobe. Scattered pleural/parenchymal scarring throughout both lungs. Resolution of left lower lobe consolidation and near complete resolution of patchy groundglass and nodular opacities throughout both lungs. There are mild residual groundglass opacities in the anterior left upper lobe as seen on series 3/image 57, in the lingula, and groundglass in nodular consolidation in the dependent right lower lobe series 3/image 130. No pleural effusion or pneumothorax. There are no destructive osseous lesions. The thyroid is atrophic or absent. Improvement in mediastinal and hilar lymphadenopathy. [employer] lower right paratracheal lymph node measures 0.9 cm series 3/image 49, previously 1.2 cm. [employer] left hilar lymph node measures 0.7 cm series 3/image 67, previously 1.1 cm Limited images of the upper abdomen: Grossly unremarkable. Impression: 1. Resolution of right upper lobe segmental pulmonary filling defect with no new central or major segmental pulmonary artery filling defect to suggest pulmonary embolism. 2. Resolution of left lower lobe consolidation with significant improvement in bilateral groundglass and nodular opacities, likely representing improving aspiration or infection. 3. Improving mediastinal and hilar lymphadenopathy, likely reactive.
== END | disposition home or self-care (01) ==
LOC: CT 09:18
PROVIDERS: ATTEND Internal Medicine Critical Care Medicine
DX: R06.02 Shortness of breath (principal); R59.1 Generalized enlarged lymph nodes
CPT/HCPCS: 36415; 71275; 82565; 84520; Q9967

== ENCOUNTER 2017-06-10 06:28 | Observation (INO) | payer OTHER ==
[2017-06-10] MEDS ORDERED: ONDANSETRON PF 4 MG/2 ML VIAL. IV ×2 (07:00→09:15)
[2017-06-10] MEDS ORDERED: PROCHLORPERAZINE 10 MG/2 ML VIAL. IV (07:00)
[2017-06-10] MEDS ORDERED: LIDOCAINE 1% PF 2 ML VIAL. ID (07:00)
[2017-06-10] MEDS: IV RINGERS,LACTATED 1000ML 1,000 ML IV ×3 (07:10→19:30)
[2017-06-10] MEDS ORDERED: ROCURONIUM 100 MG/10 ML VIAL. (07:39)
[2017-06-10] MEDS ORDERED: MIDAZOLAM HCL/PF 2 MG/2 ML VIAL. (07:39)
[2017-06-10] MEDS ORDERED: DESFLURANE > 120 MINUTES IH (07:40)
[2017-06-10] MEDS ORDERED: ONDANSETRON PF 4 MG/2 ML VIAL. (07:40)
[2017-06-10] MEDS ORDERED: DEXAMETHASONE SOD PHOS 20 MG/5 ML VIAL. (07:40)
[2017-06-10] MEDS ORDERED: fentaNYL PF VIAL 250 MCG/5 ML VIAL (07:40)
[2017-06-10] MEDS ORDERED: PROPOFOL 20 ML IV (07:41)
[2017-06-10] MEDS ORDERED: PHENYLEPHRINE 10 MG/ML VIAL. (07:41)
[2017-06-10] MEDS: BUPIVAC MPF-EPI 0.5%-1:200000 30 ML VIAL. INJ (08:15)
[2017-06-10] MEDS ORDERED: GLYCOPYRROLATE 1 MG/5 ML VIAL. (08:48)
[2017-06-10] MEDS ORDERED: NEOSTIGMINE 10 MG/10 ML VIAL. (08:48)
[2017-06-10] MEDS ORDERED: ceFAZolin 2GM PREMIX 2 GM/50 ML BAG IV (09:00)
[2017-06-10] MEDS ORDERED: 0.9 % SODIUM CHLORIDE 10 ML DISP.SYRIN. IV (09:15)
[2017-06-10] MEDS: fentaNYL PF VIAL 100 MCG/2 ML VIAL IV ×5 (09:42→10:22)
[2017-06-10] MEDS: MORPHINE SULFATE 4 MG/ML DISP.SYRIN. IV ×3 (10:00→10:39)
[2017-06-10] MEDS: KETOROLAC 30 MG/ML INJ. IV ×3 (10:16→22:59)
[2017-06-10] MEDS: oxyCODONE/APAP 5/325 1 TAB TABLET PO ×2 (11:55→13:56)
[2017-06-10] MEDS: oxyCODONE/APAP 10/325 1 TAB TABLET PO (20:50)
[2017-06-10] MEDS: DOCUSATE SODIUM 100 MG CAPSULE. PO (21:00)
[2017-06-10] MEDS: ALPRAZolam 1 MG TABLET PO (21:52)
[2017-06-11] MEDS: oxyCODONE/APAP 10/325 1 TAB TABLET PO ×3 (03:02→14:01)
[2017-06-11] MEDS: IV RINGERS,LACTATED 1000ML 1,000 ML IV ×2 (05:30→15:30)
[2017-06-11] MEDS: KETOROLAC 30 MG/ML INJ. IV ×2 (06:24→12:32)
[2017-06-11] MEDS: DOCUSATE SODIUM 100 MG CAPSULE. PO (08:23)
[2017-06-11 08:27] LABS: BASO # 0.1 x10^3/uL (0.0-0.2); BASO % 0 % (0-3); EOS % 0 % (0-3); HEMATOCRIT 30.6 % (36.0-47.0); HEMOGLOBIN 10.2 g/dL (12.0-15.5); LYMPH % 13 % (24-48); MEAN CORPUSCULAR HEMOGLOBIN 29 pg (25-35); MEAN CORPUSCULAR HGB CONC 33 g/dL (31-37); MEAN CORPUSCULAR VOLUME 88 fL (79-100); MONO # 0.9 x10^3/uL (0.0-1.1); MONO % 6 % (0-9); NEUT # 12.9 x10^3uL (1.8-7.7); NEUT % 81 % (31-73); PLATELET COUNT 337 x10^3/uL (140-400); RED BLOOD COUNT 3.46 x10^6/uL (3.50-5.40); RED CELL DISTRIBUTION WIDTH 13.4 % (11.5-14.5); WHITE BLOOD COUNT 15.9 x10^3/uL (4.0-11.0)
[2017-06-11 08:42] LABS: ANION GAP 8 (6-14); BLOOD UREA NITROGEN 9 mg/dL (7-20); CALCIUM 9.2 mg/dL (8.5-10.1); CARBON DIOXIDE 25 mmol/L (21-32); CHLORIDE 101 mmol/L (98-107); CREATININE 0.9 mg/dL (0.6-1.0); GFR 64.1; GLUCOSE 118 mg/dL (70-99); POTASSIUM 4.3 mmol/L (3.5-5.1); SODIUM 134 mmol/L (136-145)
[2017-06-11 08:47] LABS: ADD MAN DIFF? YES
[2017-06-11 10:11] LABS: % BANDS 5 % (0-9); % EOS 1 % (0-5); % LYMPHS 16 % (24-48); % MONOS 4 % (0-10); % SEGS 74 % (35-66); PLT ESTIMATE ADEQUATE (ADEQUATE)
== END 2017-06-11 17:00 | disposition home or self-care (01) ==
LOC: SURG 06:28 → 4 NORTH 09:36
DX: K43.2 Incisional hernia without obstruction or gangrene (principal); E78.5 Hyperlipidemia, unspecified; E03.9 Hypothyroidism, unspecified; I10 Essential (primary) hypertension; I25.10 Atherosclerotic heart disease of native coronary artery without angina pectoris; I48.91 Unspecified atrial fibrillation; J44.9 Chronic obstructive pulmonary disease, unspecified; K21.9 Gastro-esophageal reflux disease without esophagitis; Z82.3 Family history of stroke; Z86.73 Personal history of transient ischemic attack (TIA), and cerebral infarction without residual deficits; Z87.891 Personal history of nicotine dependence
CPT/HCPCS: 36415; 80048; 85007; 85025; 96374; 96376; C1781; G0378; G0379; J0690; J1100; J1885; J2250; J2270; J2405; J2704; J2710; J3010; J3490; J7120

== ENCOUNTER → 2017-07-18 | Outpatient (CLI) | payer OTHER ==
[2017-07-18] MEDS: REGADENOSON 0.4 MG/5 ML DISP.SYRIN. IV (11:49)
== END | disposition home or self-care (01) ==
LOC: NM 10:02
DX: Z01.818 Encounter for other preprocedural examination (principal); E78.00 Pure hypercholesterolemia, unspecified; I25.10 Atherosclerotic heart disease of native coronary artery without angina pectoris; I25.2 Old myocardial infarction; J44.9 Chronic obstructive pulmonary disease, unspecified; N18.2 Chronic kidney disease, stage 2 (mild); Z79.01 Long term (current) use of anticoagulants; Z87.891 Personal history of nicotine dependence
CPT/HCPCS: 78452; 93017; 96374; 96375; 96376; A9500; J2785

== ENCOUNTER → 2018-04-23 | Outpatient (CLI) | payer OTHER ==
[2017-06-11 15:00] VITALS: BP 134/69
[~2018-04-23] MED LIST changes: +ALBU0.63 NEB; +ALBU2.5V8 IH; +ANUSOL-HC VAG; +BUSP10TA PO; +ERGO500027 PO; +FLUT9.9S NS; -GABA600T2 PO; +GABA600T7 PO; -HYDR-2762 PO; +HYDR-2765 PO; -IOHEXOL 300 MG/ML 100ML VIAL. IV ONE; +MIRT30TA3 PO; +OLAN5TAB9 PO; -OXYC-323 PO; +OXYC1TAB15 PO; -POTA20PA PO; +POTA20PA30 PO; -PROAIR HFA8.5 GM IH; +TOLT2CAP PO; +VENL150C PO; +VENL75TA PO
[2018-04-23 16:21] LABS: CALCIUM 8.9 mg/dL (8.5-10.1); GFR 56.6; POTASSIUM 4.9 mmol/L (3.5-5.1)
== END | disposition home or self-care (01) ==
LOC: SPEC 15:44
PROVIDERS: ATTEND Family Medicine
DX: I10 Essential (primary) hypertension (principal); E78.2 Mixed hyperlipidemia; E87.1 Hypo-osmolality and hyponatremia; Z87.891 Personal history of nicotine dependence
CPT/HCPCS: 36415; 80048

== ENCOUNTER 2018-05-14 15:04 | Emergency (ER) | payer OTHER ==
[~2018-05-14] VITALS: Ht 172.7 cm; Wt 87.5 kg
[2018-05-14 15:59] LABS: BASO # 0.1 x10^3/uL (0.0-0.2); BASO % 1 % (0-3); EOS # 0.2 x10^3/uL (0.0-0.7); EOS % 2 % (0-3); HEMATOCRIT 42.7 % (36.0-47.0); HEMOGLOBIN 14.5 g/dL (12.0-15.5); LYMPH # 3.1 x10^3/uL (1.0-4.8); LYMPH % 30 % (24-48); MEAN CORPUSCULAR HEMOGLOBIN 31 pg (25-35); MEAN CORPUSCULAR HGB CONC 34 g/dL (31-37); MEAN CORPUSCULAR VOLUME 89 fL (79-100); MONO # 0.5 x10^3/uL (0.0-1.1); MONO % 5 % (0-9); NEUT # 6.4 x10^3uL (1.8-7.7); NEUT % 62 % (31-73); PLATELET COUNT 403 x10^3/uL (140-400); RED BLOOD COUNT 4.78 x10^6/uL (3.50-5.40); RED CELL DISTRIBUTION WIDTH 13.4 % (11.5-14.5); WHITE BLOOD COUNT 10.2 x10^3/uL (4.0-11.0)
[2018-05-14 16:07] LABS: CALCIUM 9.6 mg/dL (8.5-10.1); CREATININE 1.1 mg/dL (0.6-1.0); GFR 50.7; POTASSIUM 4.1 mmol/L (3.5-5.1)
[2018-05-14 16:11] LABS: BILIRUBIN,URINE NEGATIVE (NEG); CLARITY,URINE CLEAR; COLOR,URINE YELLOW; NITRITE,URINE NEGATIVE (NEG); PH,URINE 5.5; PROTEIN,URINE NEGATIVE (NEG-TRACE); UROBILINOGEN,URINE 0.2 mg/dL (0.2 mg/dL)
[2018-05-14 16:13] LABS: TOTAL BILIRUBIN 0.2 mg/dL (0.2-1.0); TOTAL PROTEIN 8.1 g/dL (6.4-8.2)
[2018-05-14 16:19] LABS: BACTERIA,URINE 0 /HPF (0-FEW); RBC,URINE 0 /HPF (0-2); SQUAMOUS EPITHELIAL CELL,UR OCC /LPF; WBC,URINE OCC /HPF (0-4)
--- NOTE | 2018-05-14 16:47 | PHYS DOC ---
Past Medical History Past Medical History: Anxiety, Bronchitis, CHF, COPD, CVA, Depression, Hypertension, [place], Renal Disease, Seizure, Stroke, Other Additional Past Medical Histor: "C.diffRotted colon out.I have an ileostomy." Past Surgical History: Appendectomy, Cholecystectomy, Hysterectomy, Knee Replacement, Other Additional Past Surgical Histo: Back SX, L ROTATOR, Cardiac stent,COLON\\RECTUM , BX KNEE, BX THUMB JOINT Alcohol Use: None Drug Use: None Adult General Chief Complaint Chief Complaint: DIZZY/LIGHT HEADED HPI HPI This is a pleasant 62-year-old female presenting the emergency department today with generalized lightheadedness and weakness for about 2 weeks. She was at Dr. yung's office and noticed to have a heart rate in the 136 but did not have any symptoms. She was sent here for further evaluation treatment and care. Currently she denies any pain and she was able to ambulate here without any difficulty. Review of systems is negative for chest pain shortness of breath. She does have chronic abdominal pain and has had a few episodes of vomiting today. She denies fevers or chills. All other review of systems is negative unless otherwise noted in history of present illness. ED course: 62-year-old female presenting the emergency department today with lightheadedness and generalized fatigue and malaise. On arrival she was mildly tachycardic at 105 with a saturation within normal limits. Blood pressure normal. Afebrile. On examination she is well-appearing with moist mucous membranes and a soft nontender nondistended abdomen. Ileostomy appears to be without any Location. Blood work obtained along with EKG. EKG obtained and reviewed by myself shows sinus rhythm with a mild tachycardia. ST segments are congruent. Not suggestive of ACS. CBC is unremarkable. Urinalysis is unremarkable. Chemistry panel shows mildly low sodium. I spoke with Dr. Leon who said that she can follow the patient up in clinic. We will give the patient strict return precautions. I also touched base with Dr. Robertson the patient's surgeon who agrees with this plan. Review of Systems Review of Systems SEE ABOVE. Current Medications Current Medications Current Medications Medications (Trade) Dose Ordered Sig/Joel Start Time Stop Time Status Last Admin Dose Admin Info (CONTRAST GIVEN -- Rx MONITORING) 1 each PRN DAILY PRN 05/14/18 17:00 3/2/19 16:59 Iohexol (Omnipaque 300 Mg/ml) 60 ml 1X ONCE 05/14/18 17:00 05/14/18 17:01 DC 05/14/18 17:35 60 ML Lorazepam (Ativan) 1 mg 1X ONCE 05/14/18 17:00 05/14/18 17:01 DC 05/14/18 17:24 1 MG Sodium Chloride 1,000 ml @ 1,000 mls/hr 1X ONCE 05/14/18 17:00 05/14/18 17:59 05/14/18 17:22 1,000 MLS/HR Allergies Allergies Allergies Coded Allergies Type Severity Reaction Last Updated Verified apixaban Allergy Intermediate Swelling 06/10/17 Yes phenytoin sodium Allergy Intermediate 06/10/17 Yes phenytoin sodium extended Allergy Intermediate 06/10/17 Yes I S O L A T I O N *CONTACT* Allergy Unknown 06/10/17 Yes doxycycline Adverse Reaction Intermediate GI UPSET 06/10/17 Yes pregabalin Adverse Reaction Intermediate NIGHTMARES 06/10/17 Yes Physical Exam Physical Exam SEE ABOVE Constitutional: Well developed, well nourished, no acute distress, non-toxic appearance. [] HENT: Normocephalic, atraumatic, bilateral external ears normal, oropharynx moist, no oral exudates, nose normal. [] Eyes: PERRLA, EOMI, conjunctiva normal, no discharge. [] Neck: Normal range of motion, no tenderness, supple, no stridor. [] Cardiovascular:Heart rate regular rhythm, no murmur [] Lungs & Thorax: Bilateral breath sounds clear to auscultation [] Abdomen: Bowel sounds normal, soft, no tenderness, no masses, no pulsatile masses. [] Skin: Warm, dry, no erythema, no rash. [] Back: No tenderness, no CVA tenderness. [] Extremities: No tenderness, no cyanosis, no clubbing, ROM intact, no edema. [] Neurologic: Mental status: Awake oriented and alert x3 Cranial nerves: Extraocular movements intact, eyebrows smita bilaterally, smile symmetric, uvula elevation nl, shoulder shrug intact bilaterally, tongue protrusion normal DTRs: 2+ Sensation: equal and normal in all extremities Strength: 5/5 in upper and lower extremities bilaterally Psychologic: Affect normal, judgement normal, mood normal. [] Current Patient Data Vital Signs Vital Signs Date Time Temp Pulse Resp B/P (MAP) Pulse Ox O2 Delivery O2 Flow Rate FiO2 05/14/18 15:23 98.5 105 18 138/71 (93) 97 Room Air 98.5 Lab Values Laboratory Tests Test 05/14/18 15:51 05/14/18 15:58 White Blood Count 10.2 x10^3/uL (4.0-11.0) Red Blood Count 4.78 x10^6/uL (3.50-5.40) Hemoglobin 14.5 g/dL (12.0-15.5) Hematocrit 42.7 % (36.0-47.0) Mean Corpuscular Volume 89 fL (79-100) Mean Corpuscular Hemoglobin 31 pg (25-35) Mean Corpuscular Hemoglobin Concent 34 g/dL (31-37) Red Cell Distribution Width 13.4 % (11.5-14.5) Platelet Count 403 x10^3/uL (140-400) H Neutrophils (%) (Auto) 62 % (31-73) Lymphocytes (%) (Auto) 30 % (24-48) Monocytes (%) (Auto) 5 % (0-9) Eosinophils (%) (Auto) 2 % (0-3) Basophils (%) (Auto) 1 % (0-3) Neutrophils # (Auto) 6.4 x10^3uL (1.8-7.7) Lymphocytes # (Auto) 3.1 x10^3/uL (1.0-4.8) Monocytes # (Auto) 0.5 x10^3/uL (0.0-1.1) Eosinophils # (Auto) 0.2 x10^3/uL (0.0-0.7) Basophils # (Auto) 0.1 x10^3/uL (0.0-0.2) Sodium Level 132 mmol/L (136-145) L Potassium Level 4.1 mmol/L (3.5-5.1) Chloride Level 95 mmol/L (98-107) L Carbon Dioxide Level 26 mmol/L (21-32) Anion Gap 11 (6-14) Blood Urea Nitrogen 8 mg/dL (7-20) Creatinine 1.1 mg/dL (0.6-1.0) H Estimated GFR (Cockcroft-Gault) 50.7 BUN/Creatinine Ratio 7 (6-20) Glucose Level 115 mg/dL (70-99) H Calcium Level 9.6 mg/dL (8.5-10.1) Magnesium Level 2.0 mg/dL (1.8-2.4) Total Bilirubin 0.2 mg/dL (0.2-1.0) Aspartate Amino Transferase (AST) 18 U/L (15-37) Alanine Aminotransferase (ALT) 23 U/L (14-59) Alkaline Phosphatase 150 U/L (46-116) H Troponin I Quantitative < 0.017 ng/mL (0.000-0.055) Total Protein 8.1 g/dL (6.4-8.2) Albumin 4.0 g/dL (3.4-5.0) Albumin/Globulin Ratio 1.0 (1.0-1.7) Urine Collection Type U cath Urine Color Yellow Urine Clarity Clear Urine pH 5.5 Urine Specific [place] <=1.005 Urine Protein Negative mg/dL (NEG-TRACE) Urine Glucose (UA) Negative mg/dL (NEG) Urine Ketones (Stick) Negative mg/dL (NEG) Urine Blood Small (NEG) Urine Nitrite Negative (NEG) Urine Bilirubin Negative (NEG) Urine Urobilinogen Dipstick 0.2 mg/dL (0.2 mg/dL) Urine Leukocyte Esterase Negative (NEG) Urine RBC 0 /HPF (0-2) Urine WBC Occ /HPF (0-4) Urine Squamous Epithelial Cells Occ /LPF Urine Bacteria 0 /HPF (0-FEW) Laboratory Tests 05/14/18 15:51 Laboratory Tests 05/14/18 15:51 EKG EKG [] Radiology/Procedures Radiology/Procedures [] Course & Med Decision Making Course & Med Decision Making Pertinent Labs and Imaging studies reviewed. (See chart for details) [] Dragon Disclaimer Dragon Disclaimer This electronic medical record was generated, in whole or in part, using a voice recognition dictation system. Departure Departure Impression: Primary Impression: Lightheaded Additional Impression: Dizzy Disposition: 01 HOME, SELF-CARE Condition: STABLE Referrals: NICOLAS LEON MD (PCP) Patient Instructions: Dizziness Additional Instructions: Thank you for allowing us to participate in your care today. Return to the emergency department you have any new or worsening symptoms, or if you are concerned for any reason. Return to emergency department if you have any new or concerning symptoms including but not limited to fever, chills, nausea, vomiting, intractable pain, any new rashes, chest pain, shortness of air , uncontrolled bleeding, difficulty breathing, and/or vision loss. Follow up with your primary care physician within 1-2 days. Call your Primary Doctor tomorrow and inform them of your visit today. If you do not have a primary care provider we are happy to provide you with a list of our primary care providers contact information. This condition should be evaluated by your primary care physician and any recommended consulting services for continued management within 2 days after discharge. If at any time, you are having difficulty getting into your primary care doctor or a specialist, return to the emergency department. Problem Qualifiers CANDICE BLOOD MD May 14, 2018 16:47
[2018-05-14] MEDS ORDERED: CONTRAST GIVEN. MC PRN (17:00)
[2018-05-14] MEDS ORDERED: IV NORMAL SALINE 1000ML BAG 1,000 ML IV ONE (17:00)
[2018-05-14] MEDS ORDERED: IOHEXOL 300 MG/ML 100ML VIAL. IV ONE (17:00)
[2018-05-14 17:30] VITALS: BP 124/77
--- NOTE | 2018-05-14 17:51 | RAD ---
PQRS Compliance statement: One or more of the following individualized dose reduction techniques were utilized for this examination: 1. Automated exposure control. 2. Adjustment of the mA and/or kV according to patient size. 3. Use of iterative reconstruction technique. Indication:ABD PAIN AND VOMITING INJ 60ML OMNI 300 PREV SENT TECHNIQUE: CT abdomen and pelvis with IV contrast with multiplanar reformats. COMPARISON: 12/02/2016 FINDINGS: Heart is normal in size. No pericardial or pleural effusion. Clear lung bases. Liver, spleen, pancreas, adrenals and kidneys are within normal limits. Mild diffuse atherosclerotic disease of the abdominal aorta and bilateral iliac arteries. No enlarged retroperitoneal or pelvic adenopathy. No free pelvic fluid or ascites. Right lower quadrant ostomy. Status post colectomy. No bowel obstruction. Laxity of anterior midline abdominal wall is seen. Status post hysterectomy. Limited evaluation of pelvis due to streak artifact from bilateral hip arthroplasty. Oval-shaped low attenuating lesion adjacent to the greater trochanter of the right femur (series 2 image 91) most likely a bursa. No pneumoperitoneum. Omental fat-containing small left spigelian hernia. Status post bilateral hip arthroplasty. No suspicious bony lesion. Posterior fusion at L4-L5. IMPRESSION: 1. No bowel obstruction. 2. Status post colectomy with right lower quadrant ostomy. Electronically signed by: Herb Lima DO (05/14/2018 5:48 PM) [facility]
--- NOTE | 2018-05-15 10:47 | EKG ---
[facility] [address] [place] [address] Test Date: 2018-05-14 Test Time: 15:26:24 Pat Name: BELLA ROACH Department: Room: Gender: F Consumer Analyst: : 1955 Requested By: CANDICE BLOOD Order Number: [id number] Reading MD: Joshua Allen MD Measurements Intervals [place] Rate: 102 P: 70 KS: 160 QRS: -28 QRSD: 86 T: 22 QT: 350 QTc: 461 Interpretive Statements SINUS TACHYCARDIA Electronically Signed On 05-19-2018 7:56:26 ELECTRONIC DATA PROCESSING AUDITOR by Joshua Allen MD
[2018-08-10] MEDS ORDERED: LIDO700A39 TP (18:51)
[2018-08-10] MEDS ORDERED: PRED20TA PO (18:51)
== END 2018-05-14 18:17 | disposition home or self-care (01) ==
LOC: ER 15:04
DX: R42 Dizziness and giddiness (principal); R53.1 Weakness; G89.29 Other chronic pain; R10.9 Unspecified abdominal pain; I50.9 Heart failure, unspecified; I11.9 Hypertensive heart disease without heart failure; J44.9 Chronic obstructive pulmonary disease, unspecified; I25.2 Old myocardial infarction; Z86.73 Personal history of transient ischemic attack (TIA), and cerebral infarction without residual deficits; F41.9 Anxiety disorder, unspecified; F32.9 Major depressive disorder, single episode, unspecified; Z90.710 Acquired absence of both cervix and uterus; Z90.89 Acquired absence of other organs; Z90.49 Acquired absence of other specified parts of digestive tract; Z93.2 Ileostomy status; Z88.5 Allergy status to narcotic agent; N28.89 Other specified disorders of kidney and ureter; Z98.890 Other specified postprocedural states; Z91.041 Radiographic dye allergy status; Z88.8 Allergy status to other drugs, medicaments and biological substances
CPT/HCPCS: 36415; 74177; 80053; 81001; 83735; 84484; 85025; 93005; 96361; 96374; 99285; J2060; J7030; Q9967

== ENCOUNTER 2018-05-17 11:57 | Day surgery (SDC) | payer OTHER ==
[~2018-05-17] VITALS: Ht 167.6 cm; Wt 87.5 kg
[2018-05-17] MEDS ORDERED: ONDANSETRON PF 4 MG/2 ML VIAL. ONE (12:06)
[2018-05-17] MEDS ORDERED: ONDANSETRON PF 4 MG/2 ML VIAL. IV ONE (12:15)
[2018-05-17] MEDS ORDERED: MORPHINE SULFATE 10 MG/ML VIAL. IV ONE ×2 (12:15→12:30)
[2018-05-17] MEDS ORDERED: fentaNYL PF VIAL 100 MCG/2 ML VIAL IV ONE (12:45)
--- NOTE | 2018-05-17 13:29 | RAD ---
Examination: 2 views of the bilateral hips with frontal view the pelvis HISTORY: History of right-sided hip pain after hearing a pop this morning COMPARISON: None available FINDINGS: Left total hip arthroplasty changes in normal alignment There is superior dislocation of the right femoral prosthesis is in relation to the right acetabular cup. Lower lumbar hardware identified. IMPRESSION: Superior dislocation of the right femoral prosthesis in relation to the right acetabular cup. Electronically signed by: Rafa Bunch MD (05/17/2018 1:27 PM) [facility]
--- NOTE | 2018-05-17 13:45 | PHYS DOC ---
Past Medical History Past Medical History: Anxiety, Bronchitis, CHF, COPD, CVA, Depression, Hypertension, [place], Renal Disease, Seizure, Stroke, Other Additional Past Medical Histor: "C.diffRotted colon out.I have an ileostomy." Past Surgical History: Appendectomy, Cholecystectomy, Hysterectomy, Knee Replacement, Other Additional Past Surgical Histo: Back SX, L ROTATOR, Cardiac stent,COLON\\RECTUM , BX KNEE, BX THUMB JOINT Alcohol Use: None Drug Use: None Adult General Chief Complaint Chief Complaint: HIP PAIN HPI HPI Patient is a 62 year old female who presents with severe pain to the right hip after hearing a popping sound this morning. The patient states that she has had bilateral hip replacements. She states that she felt the right hip dislocate today. She states that she has had this happen in the past and approximately [address] Richardson put in a larger ball joint to try and keep this from happening. The patient states that the last solid intake she had was a snack cake at approximately 7:30 this morning. She was brought to this facility by EMS and received 100 mcg of fentanyl in route. She is still stating that she is in severe pain. Review of Systems Review of Systems Constitutional: Denies fever or chills [] Eyes: Denies change in visual acuity, redness, or eye pain [] HENT: Denies nasal congestion or sore throat [] Respiratory: Denies cough or shortness of breath [] Cardiovascular: No additional information not addressed in HPI [] GI: Denies abdominal pain, nausea, vomiting, bloody stools or diarrhea [] : Denies dysuria or hematuria [] Musculoskeletal: See history of present illness Integument: Denies rash or skin lesions [] Neurologic: Denies headache, focal weakness or sensory changes [] Endocrine: Denies polyuria or polydipsia [] All other systems were reviewed and found to be within normal limits, except as documented in this note. Current Medications Current Medications Current Medications Medications (Trade) Dose Ordered Sig/Joel Start Time Stop Time Status Last Admin Dose Admin Fentanyl Citrate (Fentanyl 2ml Vial) 75 mcg 1X ONCE 05/17/18 12:45 05/17/18 12:46 DC 05/17/18 12:51 75 MCG Lorazepam (Ativan) 1 mg 1X ONCE 05/17/18 13:00 05/17/18 13:01 DC 05/17/18 13:00 1 MG Morphine Sulfate (Morphine Sulfate) 5 mg 1X ONCE 05/17/18 12:30 05/17/18 12:31 DC 05/17/18 12:28 5 MG Ondansetron HCl (Zofran) 4 mg STK-MED ONCE 05/17/18 12:06 05/17/18 12:07 DC Propofol 20 ml @ As Directed STK-MED ONCE 05/17/18 14:12 05/17/18 14:13 DC Allergies Allergies Allergies Coded Allergies Type Severity Reaction Last Updated Verified apixaban Allergy Intermediate Swelling 05/17/18 Yes hydromorphone Allergy Intermediate 05/17/18 Yes phenytoin sodium Allergy Intermediate 05/17/18 Yes phenytoin sodium extended Allergy Intermediate 05/17/18 Yes I S O L A T I O N *CONTACT* Allergy Unknown 05/17/18 Yes doxycycline Adverse Reaction Intermediate GI UPSET 05/17/18 Yes pregabalin Adverse Reaction Intermediate NIGHTMARES 05/17/18 Yes Physical Exam Physical Exam Constitutional: Well developed, well nourished, no acute distress, non-toxic appearance. [] Cardiovascular:Heart rate regular rhythm, no murmur [] Lungs & Thorax: Bilateral breath sounds clear to auscultation [] Abdomen: Bowel sounds normal, soft, no tenderness, no masses, no pulsatile masses. [] Skin: Warm, dry, no erythema, no rash. [] Back: No tenderness, no CVA tenderness. [] Extremities: severe tenderness to right hip, shortening noted to the right leg, no cyanosis, no clubbing, ROM decreased due to pain, pulses are intact Neurologic: Alert and oriented X 3, normal motor function, normal sensory function, no focal deficits noted. [] Psychologic: Affect normal, judgement normal, mood normal. [] Current Patient Data Vital Signs Vital Signs Date Time Temp Pulse Resp B/P (MAP) Pulse Ox O2 Delivery O2 Flow Rate FiO2 05/17/18 12:51 18 97 05/17/18 12:28 Room Air 05/17/18 12:00 97.9 98 146/89 (108) 97.9 Lab Values Laboratory Tests Test 05/17/18 13:48 White Blood Count 14.4 x10^3/uL (4.0-11.0) H Red Blood Count 4.01 x10^6/uL (3.50-5.40) Hemoglobin 12.2 g/dL (12.0-15.5) Hematocrit 36.3 % (36.0-47.0) Mean Corpuscular Volume 91 fL (79-100) Mean Corpuscular Hemoglobin 30 pg (25-35) Mean Corpuscular Hemoglobin Concent 34 g/dL (31-37) Red Cell Distribution Width 13.4 % (11.5-14.5) Platelet Count 331 x10^3/uL (140-400) Neutrophils (%) (Auto) 72 % (31-73) Lymphocytes (%) (Auto) 21 % (24-48) L Monocytes (%) (Auto) 5 % (0-9) Eosinophils (%) (Auto) 2 % (0-3) Basophils (%) (Auto) 0 % (0-3) Neutrophils # (Auto) 10.4 x10^3uL (1.8-7.7) H Lymphocytes # (Auto) 3.1 x10^3/uL (1.0-4.8) Monocytes # (Auto) 0.7 x10^3/uL (0.0-1.1) Eosinophils # (Auto) 0.2 x10^3/uL (0.0-0.7) Basophils # (Auto) 0.1 x10^3/uL (0.0-0.2) Prothrombin Time 12.2 SEC (11.7-14.0) Prothrombin Time INR 0.9 (0.8-1.1) PTT 29 SEC (24-38) Sodium Level 131 mmol/L (136-145) L Potassium Level 3.6 mmol/L (3.5-5.1) Chloride Level 95 mmol/L (98-107) L Carbon Dioxide Level 25 mmol/L (21-32) Anion Gap 11 (6-14) Blood Urea Nitrogen 5 mg/dL (7-20) L Creatinine 1.0 mg/dL (0.6-1.0) Estimated GFR (Cockcroft-Gault) 56.6 BUN/Creatinine Ratio 5 (6-20) L Glucose Level 111 mg/dL (70-99) H Calcium Level 8.6 mg/dL (8.5-10.1) Total Bilirubin 0.2 mg/dL (0.2-1.0) Aspartate Amino Transferase (AST) 16 U/L (15-37) Alanine Aminotransferase (ALT) 17 U/L (14-59) Alkaline Phosphatase 122 U/L (46-116) H Total Protein 7.0 g/dL (6.4-8.2) Albumin 3.2 g/dL (3.4-5.0) L Albumin/Globulin Ratio 0.8 (1.0-1.7) L Laboratory Tests 05/17/18 13:48 Laboratory Tests 05/17/18 13:48 EKG EKG [] Radiology/Procedures Radiology/Procedures [] Course & Med Decision Making Course & Med Decision Making Pertinent Labs and Imaging studies reviewed. (See chart for details) [] Dragon Disclaimer Dragon Disclaimer This electronic medical record was generated, in whole or in part, using a voice recognition dictation system. Departure Departure Impression: Primary Impression: Hip dislocation, right Disposition: 01 HOME, SELF-CARE Condition: STABLE Referrals: NICOLAS HICKS MD (PCP) MARSHAL BOWER MD Patient Instructions: Hip Dislocation Additional Instructions: Follow-up with orthopedics for further evaluation of your chronic hip dislocations. If worsening return to the emergency department. JUAREZ SOTO APRN May 17, 2018 13:45
[2018-05-17 13:56] LABS: BASO # 0.1 x10^3/uL (0.0-0.2); BASO % 0 % (0-3); EOS # 0.2 x10^3/uL (0.0-0.7); EOS % 2 % (0-3); HEMATOCRIT 36.3 % (36.0-47.0); HEMOGLOBIN 12.2 g/dL (12.0-15.5); LYMPH # 3.1 x10^3/uL (1.0-4.8); LYMPH % 21 % (24-48); MEAN CORPUSCULAR HEMOGLOBIN 30 pg (25-35); MEAN CORPUSCULAR HGB CONC 34 g/dL (31-37); MEAN CORPUSCULAR VOLUME 91 fL (79-100); MONO # 0.7 x10^3/uL (0.0-1.1); MONO % 5 % (0-9); NEUT # 10.4 x10^3uL (1.8-7.7); NEUT % 72 % (31-73); PLATELET COUNT 331 x10^3/uL (140-400); RED BLOOD COUNT 4.01 x10^6/uL (3.50-5.40); RED CELL DISTRIBUTION WIDTH 13.4 % (11.5-14.5); WHITE BLOOD COUNT 14.4 x10^3/uL (4.0-11.0)
[2018-05-17 14:04] LABS: PROTHROMBIN TIME PATIENT 12.2 SEC (11.7-14.0)
[2018-05-17] MEDS ORDERED: PROPOFOL 20 ML IV ONE (14:12)
[2018-05-17 14:14] LABS: CALCIUM 8.6 mg/dL (8.5-10.1); GFR 56.6; POTASSIUM 3.6 mmol/L (3.5-5.1)
[2018-05-17 14:19] LABS: ALBUMIN 3.2 g/dL (3.4-5.0); ALBUMIN/GLOBULIN RATIO 0.8 (1.0-1.7); TOTAL BILIRUBIN 0.2 mg/dL (0.2-1.0)
--- NOTE | 2018-05-17 15:01 | DISCH ---
DISCHARGE INSTRUCTIONS Condition on Discharge Condition on Discharge: Stable Activity After Discharge Activity Instructions for Disc: Other, see below (total hip precautions, avoid hip flexion beyond 90 or internal rotation, keep knee immobilizer on for ambulation as well as sleeping remove only for shower) Driving Instructions after Dis: Do not drive today Diet after Discharge Diet after Discharge: Regular Diet Texture: Regular Liquid Texture: Thin Liquid Contacting the DRGareth after DC Call your doctor for: Concerns you may have Follow-Up Follow up with: Dr. Richardson, [facility] in [place], has appointment this week Treatment/Equipment after DC Adaptive Equipment Issued: None MARSHAL BOWER MD May 17, 2018 15:01
--- NOTE | 2018-05-17 15:10 | PDOC4 ---
Operative Note Operative Note Date of procedure: 05/17/2018 Preoperative diagnosis: Dislocation of right total hip arthroplasty Postoperative diagnosis: Same Operative procedure: Closed reduction right total hip arthroplasty Surgeon: Randal Anesthesia: Propofol deep sedation provided by anesthesia Estimated blood loss: None Complications: None Operative indications: Please see my emergency department consultation for detailed indications and note that Dr. Richardson performed recent surgery about a month ago putting a bigger ball in to hopefully solve a dislocating problem of her right hip. He had also done her previous surgeries and she has had multiple dislocations. She indicated an episode where she felt a pop severe pain and inability to walk and was brought in by EMS today x-rays showed dislocation of a otherwise well fixed total hip arthroplasty. I went over with her the proposed closed reduction with follow-up with her normal orthopedist to pursue further treatment options. She agreed to proceed with the closed reduction procedure and informed consent was obtained Operative text: Patient was identified procedure verified. After adequate amounts of deep sedation provided by anesthesia and timeout was performed verifying the procedure, the right hip was reduced with a traction/counter traction maneuver and postoperative x-rays showed good reduction of the hip arthroplasty and likewise confirmed component placement and concentric reduction. I then placed her in a knee immobilizer and gave her written postoperative instructions until her scheduled follow-up this week with Dr. Richardson. She tolerated the procedure well and was discharged upon satisfactory recovery from the anesthesia sedation MARSHAL BOWER MD May 17, 2018 15:10
[2018-05-17 15:30] VITALS: BP 118/74
--- NOTE | 2018-05-17 15:50 | RAD ---
Examination: Single frontal view of the right hip HISTORY: History of postreduction COMPARISON: Radiograph from same day exam Findings/ impression: Interval reduction of superior dislocation of the femoral prosthesis with the right femoral prosthesis now projecting within the right acetabular cup. Electronically signed by: Rafa Bunch MD (05/17/2018 3:47 PM) [facility]
--- NOTE | 2018-05-18 06:16 | CONS ---
DATE OF CONSULTATION: 05/17/2018 CHIEF COMPLAINT: Right total hip dislocation. HISTORY OF PRESENT ILLNESS: The patient is a 62-year-old female that had multiple surgeries done by Dr. Richardson in [place], [place] and apparently about a month ago, had put in a larger ball joint to try to keep her from dislocating. Unfortunately, she heard a popping sound this morning and severe pain, inability to bear weight in the right hip and was brought in by EMS. PAST MEDICAL HISTORY: Significant for COPD, previous stroke, hypertension, [place], renal disease, seizures, congestive heart failure, anxiety, and bronchitis as well as a history of Clostridium difficile. PAST SURGICAL HISTORY: Significant for an ileostomy due to the Clostridium difficile, appendectomy, cholecystectomy, hysterectomy, knee replacement, cardiac stents, rotator cuff and back surgeries, thumb joint surgeries as well as her right hip joint surgeries as noted above. MEDICATIONS: List is reviewed. ALLERGIES: SHE HAS AN EXTENSIVE LIST INCLUDING HYDROMORPHONE, DOXYCYCLINE, PREGABALIN, PHENYTOIN AND APIXABAN. SOCIAL HISTORY: Independently ambulatory. Denies alcohol or drug use. She does continue to smoke. REVIEW OF SYSTEMS: Significant only for the recent hip surgeries, instability in the past and the incident that happened this morning. She is n.p.o. since consumption of a snack cake about 7:30 this morning. Denies any chest pain, shortness of breath, visual changes, focal weakness, numbness, tingling, has severe right hip pain with any attempted range of motion and shortened, rotated right lower extremity. PHYSICAL EXAMINATION: GENERAL: This is a pleasant, cooperative 62-year-old female, alert and oriented, no acute distress. VITAL SIGNS: Temperature 97.9, pulse 98, respirations 18, blood pressure 146/89, 97% saturation on room air. HEENT: Atraumatic, normocephalic. HEART: Regular rate and rhythm. LUNGS: Clear to auscultation bilaterally. ABDOMEN: Benign, obese. EXTREMITIES: Examination of the right hip reveals well-healed incision from her previous right hip surgeries with a posterior approach. Right hip is painful with any motion and is shortened, internally rotated. She has normal examination of the contralateral hip with normal alignment, stability bilateral knees and ankles. Overall intact motor function, distal pulses, sensation, reflexes, skin in both lower extremities throughout. IMAGING: X-rays show a posterior superior dislocation of an otherwise well-fixed total hip arthroplasty on the right. The left well-fixed total hip arthroplasty remains reduced. IMPRESSION: Right hip prosthesis dislocation. TREATMENT PLAN: I went over with her the planned closed reduction under anesthesia and a planned followup with Dr. Richardson as the surgery of placing a larger ball did not seem to alleviate her problem and she may need to check with him for further future treatment. In the interim, I proposed closed reduction and placement in a knee immobilizer to avoid her getting in an unfavorable position for the instability of her hip. She agrees to proceed with the closed reduction procedure, which will be planned today with anesthesia assistance. MARSHAL BOWER MD DR: CHU/joshua JOB#: [id number] / [id number] Dr. Carolyn Quintero Margaret MD
[2018-08-10] MEDS ORDERED: LIDO700A39 TP (18:51)
[2018-08-10] MEDS ORDERED: PRED20TA PO (18:51)
== END 2018-05-17 15:30 | disposition home or self-care (01) ==
LOC: ER 11:57 → OPS 14:29
PROVIDERS: ATTEND Orthopaedic Surgery
DX: T84.020A Dislocation of internal right hip prosthesis, initial encounter (principal); F41.9 Anxiety disorder, unspecified; J44.9 Chronic obstructive pulmonary disease, unspecified; F32.9 Major depressive disorder, single episode, unspecified; I25.2 Old myocardial infarction; I25.10 Atherosclerotic heart disease of native coronary artery without angina pectoris; I11.0 Hypertensive heart disease with heart failure; I50.9 Heart failure, unspecified; Z86.73 Personal history of transient ischemic attack (TIA), and cerebral infarction without residual deficits; Z93.2 Ileostomy status; Z90.49 Acquired absence of other specified parts of digestive tract; Z90.710 Acquired absence of both cervix and uterus; Z95.5 Presence of coronary angioplasty implant and graft; Z98.890 Other specified postprocedural states; Z96.643 Presence of artificial hip joint, bilateral; Z79.899 Other long term (current) drug therapy; Z88.5 Allergy status to narcotic agent; Z88.8 Allergy status to other drugs, medicaments and biological substances; Z86.14 Personal history of Methicillin resistant Staphylococcus aureus infection; G62.9 Polyneuropathy, unspecified; M79.7 Fibromyalgia; Y83.8 Other surgical procedures as the cause of abnormal reaction of the patient, or of later complication, without mention of misadventure at the time of the procedure; Y92.89 Other specified places as the place of occurrence of the external cause; Z86.711 Personal history of pulmonary embolism; Z86.718 Personal history of other venous thrombosis and embolism
CPT/HCPCS: 27266; 36415; 73501; 73521; 80053; 85025; 85610; 85730; J2060; J2270; J2405; J2704; J3010

== ENCOUNTER 2018-05-19 07:12 | Observation (INO) | payer OTHER ==
[~2018-05-19] VITALS: Ht 170.2 cm; Wt 87.5 kg
[2018-05-19] MEDS ORDERED: MORPHINE SULFATE 4 MG/ML VIAL. IV ONE (07:45)
--- NOTE | 2018-05-19 07:54 | RAD ---
EXAM: AP pelvis, AP and crosstable lateral views of the right hip DATE: 05/19/2018 12:00 AM INDICATION: FALL PAIN RIGHT HIP, RECURRENT HIP DISLOCATION COMPARISON: 05/17/2018 FINDINGS: Changes of bilateral total hip arthroplasties are seen. There is posterior and superior dislocation of the right femoral head component relative to the right acetabular cup. No left hip arthroplasty is in stable alignment without definite interval hardware complication. No evidence of acute fracture or dislocation. Lower lumbar spine surgical changes are partially profiled. IMPRESSION: 1. Right total hip arthroplasty with posterior superior dislocation of the femoral component relative to the acetabular component. 2. Left total hip arthroplasty, in stable alignment without definite hardware complication. Electronically signed by: Jony Hernandez MD (05/19/2018 7:51 AM) [facility]
[2018-05-19 08:13] LABS: BASO % 0 % (0-3); EOS # 0.2 x10^3/uL (0.0-0.7); EOS % 2 % (0-3); HEMATOCRIT 35.7 % (36.0-47.0); HEMOGLOBIN 12.2 g/dL (12.0-15.5); LYMPH # 2.6 x10^3/uL (1.0-4.8); LYMPH % 30 % (24-48); MEAN CORPUSCULAR HEMOGLOBIN 31 pg (25-35); MEAN CORPUSCULAR HGB CONC 34 g/dL (31-37); MEAN CORPUSCULAR VOLUME 90 fL (79-100); MONO # 0.5 x10^3/uL (0.0-1.1); MONO % 5 % (0-9); NEUT # 5.4 x10^3uL (1.8-7.7); NEUT % 63 % (31-73); PLATELET COUNT 314 x10^3/uL (140-400); RED BLOOD COUNT 3.97 x10^6/uL (3.50-5.40); RED CELL DISTRIBUTION WIDTH 13.3 % (11.5-14.5); WHITE BLOOD COUNT 8.6 x10^3/uL (4.0-11.0)
[2018-05-19 08:23] LABS: CALCIUM 9.1 mg/dL (8.5-10.1); CREATININE 0.9 mg/dL (0.6-1.0); GFR 63.9; POTASSIUM 4.3 mmol/L (3.5-5.1)
--- NOTE | 2018-05-19 08:25 | PHYS DOC ---
Past Medical History Past Medical History: Anxiety, Bronchitis, CHF, COPD, CVA, Depression, Hypertension, IA, Renal Disease, Seizure, Stroke, Other Additional Past Medical Histor: "C.diffRotted colon out.I have an ileostomy." Past Surgical History: Appendectomy, Cholecystectomy, Hysterectomy, Knee Replacement, Other Additional Past Surgical Histo: Back SX, L ROTATOR, Cardiac stent,COLON\\RECTUM , BX KNEE, BX THUMB JOINT Additional Information: "I DON'T KNOW" Alcohol Use: None Drug Use: None Adult General Chief Complaint Chief Complaint: HIP PAIN HPI HPI Patient is a 62 year old female who brought in by EMS because of right hip dislocation. Patient stated she felt a pop in his right hip like her previous episodes of hip dislocation and complaining of severe pain and unable to bearing weight or moving her leg. EMS gave her 100 g of fentanyl with partial improvement of her pain. Patient had history of right hip replacement and frequent dislocation. Patient had another hip surgery 1 month ago insertion of a bigger ball but she had another episode of dislocation 2 days ago and seen in this ER and had unsuccessful reduction in ER and successful reduction by orthopedic physician in OR. Patient has appointment with her orthopedic physician Dr. Richardson at [facility] tomorrow but requested to come to this hospital. Review of Systems Review of Systems Constitutional: Denies fever or chills [] Eyes: Denies change in visual acuity, redness, or eye pain [] HENT: Denies nasal congestion or sore throat [] Respiratory: Denies cough or shortness of breath [] Cardiovascular: No additional information not addressed in HPI [] GI: Denies abdominal pain, nausea, vomiting, bloody stools or diarrhea [] : Denies dysuria or hematuria [] Musculoskeletal: Denies back pain, reports joint pain [] Integument: Denies rash or skin lesions [] Neurologic: Denies headache, focal weakness or sensory changes [] Endocrine: Denies polyuria or polydipsia [] All other systems were reviewed and found to be within normal limits, except as documented in this note. Current Medications Current Medications Current Medications Medications (Trade) Dose Ordered Sig/Joel Start Time Stop Time Status Last Admin Dose Admin Morphine Sulfate (Morphine Sulfate) 4 mg 1X ONCE 05/19/18 07:45 05/19/18 07:53 DC 05/19/18 07:56 4 MG Allergies Allergies Allergies Coded Allergies Type Severity Reaction Last Updated Verified apixaban Allergy Intermediate Swelling 05/17/18 Yes hydromorphone Allergy Intermediate 05/17/18 Yes phenytoin sodium Allergy Intermediate 05/17/18 Yes phenytoin sodium extended Allergy Intermediate 05/17/18 Yes I S O L A T I O N *CONTACT* Allergy Unknown 05/17/18 Yes doxycycline Adverse Reaction Intermediate GI UPSET 05/17/18 Yes pregabalin Adverse Reaction Intermediate NIGHTMARES 05/17/18 Yes Physical Exam Physical Exam Constitutional: Well nourished, moderate distress, non-toxic appearance. [] HENT: Normocephalic, atraumatic. Eyes: PERRLA, EOMI, conjunctiva normal, no discharge. [] Neck: Normal range of motion, no tenderness, supple, no stridor. [] Cardiovascular:Heart rate regular rhythm, no murmur [] Lungs & Thorax: Bilateral breath sounds clear to auscultation [] Skin: Warm, dry, no erythema, no rash. [] Back: No tenderness, no CVA tenderness. [] Extremities: Right hip with tenderness in joints and unable to move without neurovascular deficit Neurologic: Alert and oriented X 3 Psychologic: Affect anxious, judgement normal, mood normal. [] Current Patient Data Vital Signs Vital Signs Date Time Temp Pulse Resp B/P (MAP) Pulse Ox O2 Delivery O2 Flow Rate FiO2 05/19/18 07:56 16 98 Nasal Cannula 2.0 05/19/18 07:40 98.7 87 114/72 (86) 98.7 EKG EKG [] Radiology/Procedures Radiology/Procedures [facility] [address] [place], [place] [id number] IMAGING REPORT Signed PATIENT: BELLA ROACH ACCOUNT: [id number] : 1955 LOCATION: ER AGE: 62 SEX: F EXAM STATUS: REG ER ORD. PHYSICIAN: KEV TIRADO MD REASON: fall, recurrent hip dislocation PROCEDURE: HIP RIGHT 2V WITH PELVIS EXAM: AP pelvis, AP and crosstable lateral views of the right hip DATE: 05/19/2018 12:00 AM INDICATION: FALL PAIN RIGHT HIP, RECURRENT HIP DISLOCATION COMPARISON: 05/17/2018 FINDINGS: Changes of bilateral total hip arthroplasties are seen. There is posterior and superior dislocation of the right femoral head component relative to the right acetabular cup. No left hip arthroplasty is in stable alignment without definite interval hardware complication. No evidence of acute fracture or dislocation. Lower lumbar spine surgical changes are partially profiled. IMPRESSION: 1. Right total hip arthroplasty with posterior superior dislocation of the femoral component relative to the acetabular component. 2. Left total hip arthroplasty, in stable alignment without definite hardware complication. Electronically signed by: Jony Velasco MD (05/19/2018 7:51 AM) [facility] DICTATED and SIGNED BY: JONY VELASCO MD DATE: 05/19/18 0749 Course & Med Decision Making Course & Med Decision Making Pertinent Imaging studies reviewed. (See chart for details) Evaluation of patient in ER showed 62-year-old female patient with history of multiple right hip dislocation brought in by EMS because of another episode of hip dislocation. Patient had unsuccessful reduction in the emergency room previously and had to go to OR for reduction of hip by orthopedic physician. On- call orthopedic physician Dr. Bejarano consulted at 0725 and recommended to admit patient to hospitalist for observation and reduction of hip dislocation and later on presented to ER and evaluated the patient. Dr. Galeas accepted admission for Dr. Leon at 0804. Labs was pending. She treated with morphine and felt better. Dragon Disclaimer Dragon Disclaimer This electronic medical record was generated, in whole or in part, using a voice recognition dictation system. Departure Departure Impression: Primary Impression: Recurrent posterior dislocation of right hip Disposition: ADMITTED INPATIENT ( admitted at 0726) Admitting Physician: Narda Leno (Dr Galeas accepted admission for Dr. Leon at 0804) Condition: IMPROVED Referrals: NARDA LEON MD (PCP) KEV TIRADO MD May 19, 2018 08:25
[2018-05-19 08:27] LABS: ALBUMIN 3.1 g/dL (3.4-5.0); ALBUMIN/GLOBULIN RATIO 0.9 (1.0-1.7); TOTAL BILIRUBIN 0.3 mg/dL (0.2-1.0); TOTAL PROTEIN 6.7 g/dL (6.4-8.2)
[2018-05-19 08:30] LABS: PROTHROMBIN TIME PATIENT 12.2 SEC (11.7-14.0)
--- NOTE | 2018-05-19 08:45 | PDOC2 ---
CONSULT Date of Consult Date of Consult DATE: 05/19/18 TIME: 08:38 Reason for Consult Reason for Consult: Right total hip dislocation Referring Physician Referring Physician: Leigh Identification/Chief Complaint Chief Complaint Right hip pain Source Source: Chart review, Patient History of Present Illness Reason for Visit: Patient was getting up out of bed this morning when she felt her hip pop out again. She had a prior dislocation on 05/17/2018 that was successfully reduced in the operating room. She cannot think of any abnormal position her leg was in, she tells me she was just arising from a seated position. Because of pain and inability to ambulate she requested that she be brought to this facility. An x- ray was obtained which revealed a right total hip arthroplasty dislocation. She tells me her whole leg hurts, especially at her hip. She denies any other complaint or concern. She feels like her rehabilitation progressed well up into a hole her dislocations recently. She denies any wound healing problems or drainage. Her hip had not been hurting him much. Her surgery was approximately 7 weeks ago for her right total hip. Past Medical History Cardiovascular: AFIB, CAD, HTN, Hyperlipidemia, Other Pulmonary: COPD CENTRAL NERVOUS SYSTEM: CVA GI: GERD, Other Heme/Onc: Anemia NOS Psych: Anxiety, Depression Musculoskeletal: low back pain, Osteoarthritis, Other Infectious disease: No pertinent hx Endocrine: Hypothyroidism Past Surgical History Past Surgical History: Cholecystectomy, Hernia Repair, Total hip replacement, Total knee replacement, Hysterectomy, Other Family History Family History: Stroke Social History ALCOHOL: none Drugs: None Lives: Alone Current Problem List Problem List Problems Medical Problems: (1) Recurrent posterior dislocation of right hip Status: Acute Current Medications Current Medications Current Medications Morphine Sulfate (Morphine Sulfate) 4 mg 1X ONCE IV Last administered on at 07:56; Start 05/19/18 at 07:45; Stop 05/19/18 at 07:53; Status DC Active Scripts Active Levothyroxine Sodium 150 Mcg Tablet 1 Tab PO DAILY Reported Vitamin D2 (Ergocalciferol (Vitamin D2)) 50,000 Unit Capsule 1 Cap PO WEEKLY Flonase Allergy Relief (Fluticasone Propionate) 9.9 Ml [place].susp 2 Sprays NS DAILY Albuterol Sulfate Neb Soln (Albuterol Sulfate) 0.63 Mg/3 Ml Vial.neb 1 Vial NEB QID Detrol La (Tolterodine Tartrate) 2 Mg Cap.er.24h 1 Cap PO BID [Anusol-Hc] 25 Mg VAG HS Olanzapine 5 Mg Tablet 1 Tab PO QHS Buspirone Hcl 10 Mg Tablet 1 Tab PO BID Effexor Xr (Venlafaxine Hcl) 150 Mg Cap.er.24h 2 Cap PO DAILY Venlafaxine Hcl 75 Mg Tablet 1 Tab PO DAILY Mirtazapine 30 Mg Tablet 1 Tab PO QHS Chantix (Varenicline Tartrate) 1 Mg Tablet 1 Mg PO BID Atorvastatin Calcium 20 Mg Tablet 40 Mg PO HS Vitamin E 400 Unit Capsule 400 Unit PO DAILY Fish Oil ([place]-3 Fatty Acids) 500 Mg Capsule 500 Mg PO DAILY Magnesium Oxide 400 Mg Tablet 400 Mg PO QID Xanax (Alprazolam) 1 Mg Tablet 1 Mg PO QID Lasix (Furosemide) 40 Mg Tablet 40 Mg PO DAILY Aspirin 325 Mg Tablet 325 Mg PO DAILY Gabapentin 600 Mg Tablet 600 Mg PO TID Tizanidine Hcl 4 Mg Tablet 4 Mg PO QID Omeprazole 20 Mg Tablet.dr 20 Mg PO DAILY07 Klor-Con (Potassium Chloride) 20 Meq Packet 40 Meq PO TID Proair Hfa Inhaler (Albuterol Sulfate) 8.5 Gm Hfa.aer.ad 8.5 Gm IH Q4HRS Advair 500-50 Diskus (Fluticasone/Salmeterol) 1 Each Disk.w.dev 1 Each IH BID Allergies Allergies: Coded Allergies: apixaban (Verified Allergy, Intermediate, Swelling, 05/17/18) hydromorphone (Verified Allergy, Intermediate, 05/17/18) phenytoin sodium (Verified Allergy, Intermediate, 05/17/18) phenytoin sodium extended (Verified Allergy, Intermediate, 05/17/18) I S O L A T I O N *CONTACT* (Verified Allergy, Unknown, 05/17/18) mrsa doxycycline (Verified Adverse Reaction, Intermediate, GI UPSET, 05/17/18) pregabalin (Verified Adverse Reaction, Intermediate, NIGHTMARES, 05/17/18) ROS General: No: Chills, Night Sweats, Fatigue, Malaise, Appetite, Other PSYCHOLOGICAL ROS: No: Anxiety, Behavioral Disorder, Concentration difficultie , Decreased libido, Depression, Disorientation, Hallucinations, Hostility, Irritablity, Memory difficulties, Mood Swings, Obsessive thoughts, Physical abuse, Sexual abuse, Sleep disturbances, Suicidal ideation, Other Eyes: No Blurry vision, No Decreased vision, No Double vision, No Dry eyes, No Excessive tearing, No Eye Pain, No Itchy Eyes, No Loss of vision, No Photophobia , No Scotomata, No Uses contacts, No Uses glasses, No Other HEENT: No: Heacaches, Visual Changes, Hearing change, Nasal congestion, Nasal discharge, Oral lesions, Sinus pain, Sore Throat, Epistaxis, Sneezing, Snoring, Tinnitus, Vertigo, Vocal changes, Other ALLERGY AND IMMUNOLOGY: No: Hives, Insect Bite Sensitivity, Itchy/Watery Eyes, Nasal Congestion, Post Nasal Drip, Seasonal Allergies, Other Hematological and Lymphatic: No: Bleeding Problems, Blood Clots, Blood Transfusions, Brusing, Night Sweats, Pallor, Swollen Lymph Nodes, Other ENDOCRINE: No: Breast Changes, Galactorrhea, Hair Pattern Changes, Hot Flashes , Malaise/lethargy, Mood Swings, Palpitations, Polydipsia/polyuria, Skin Changes , Temperature Intolerance, Unexpected Weight Changes, Other Respiratory: No: Cough, Hemoptysis, Orthopnea, Pleuritic Pain, Shortness of breath, SOB with excertion, Sputum Changes, Stridor, Tachypnea, Wheezing, Other Cardiovascular: No Chest Pain, No Palpitations, No Orthopnea, No Paroxysmal Noc. Dyspnea, No Edema, No Lt Headedness, No Other Gastrointestinal: No Nausea, No Vomiting, No Abdominal Pain, No Diarrhea, No Constipation, No Melena, No Hematochezia, No Other Genitourinary: No Dysuria, No Frequency, No Incontinence, No Hematuria, No Retention, No Discharge, No Urgency, No Pain, No Flank Pain, No Other, No , No , No , No , No , No , No Musculoskeletal: Yes Joint Pain, Yes Muscle Pain Neurological: No Behavorial Changes, No Bowel/Bladder ControlChng, No Confusion , No Dizziness, No Gait Disturbance, No Headaches, No Impaired Coord/balance, No Memory Loss, No Numbness/Tingling, No Seizures, No Speech Problems, No Tremors, No Visual Changes, No Weakness, No Other Skin: No Dry Skin, No Eczema, No Hair Changes, No Lumps, No Mole Changes, No Mottling, No Nail Changes, No Pruritus, No Rash, No Skin Lesion Changes, No Other, No Acne Physical Exam General: Alert, Oriented X3, moderate distress HEENT: Atraumatic, EOMI Lungs: Other (respirations aren't labored with symmetric chest rise) Heart: Regular rate Abdomen: Soft, No tenderness Extremities: No edema, Normal pulses Skin: No rashes Neuro: Sensation intact, Other (dorsiflexion, plantar flexion, EHL and FHL are difficult to assess secondary to patient cooperation due to her pain.) Psych/Mental Status: Mental status NL, Mood NL MUSCULOSKELETAL: Other (she has a healed posterolateral incision over her right hip. There is obvious gross deformity. Right lower extremity is slightly shorter.) Vitals VITALS Vital Signs Date Time Temp Pulse Resp B/P (MAP) Pulse Ox O2 Delivery O2 Flow Rate FiO2 05/19/18 07:56 16 98 Nasal Cannula 2.0 05/19/18 07:40 98.7 87 114/72 (86) 98.7 Labs Labs Laboratory Tests Test 05/19/18 08:01 White Blood Count 8.6 x10^3/uL (4.0-11.0) Red Blood Count 3.97 x10^6/uL (3.50-5.40) Hemoglobin 12.2 g/dL (12.0-15.5) Hematocrit 35.7 % (36.0-47.0) Mean Corpuscular Volume 90 fL (79-100) Mean Corpuscular Hemoglobin 31 pg (25-35) Mean Corpuscular Hemoglobin Concent 34 g/dL (31-37) Red Cell Distribution Width 13.3 % (11.5-14.5) Platelet Count 314 x10^3/uL (140-400) Neutrophils (%) (Auto) 63 % (31-73) Lymphocytes (%) (Auto) 30 % (24-48) Monocytes (%) (Auto) 5 % (0-9) Eosinophils (%) (Auto) 2 % (0-3) Basophils (%) (Auto) 0 % (0-3) Neutrophils # (Auto) 5.4 x10^3uL (1.8-7.7) Lymphocytes # (Auto) 2.6 x10^3/uL (1.0-4.8) Monocytes # (Auto) 0.5 x10^3/uL (0.0-1.1) Eosinophils # (Auto) 0.2 x10^3/uL (0.0-0.7) Basophils # (Auto) 0.0 x10^3/uL (0.0-0.2) Sodium Level 129 mmol/L (136-145) Potassium Level 4.3 mmol/L (3.5-5.1) Chloride Level 94 mmol/L (98-107) Carbon Dioxide Level 26 mmol/L (21-32) Anion Gap 9 (6-14) Blood Urea Nitrogen 3 mg/dL (7-20) Creatinine 0.9 mg/dL (0.6-1.0) Estimated GFR (Cockcroft-Gault) 63.9 BUN/Creatinine Ratio 3 (6-20) Glucose Level 106 mg/dL (70-99) Calcium Level 9.1 mg/dL (8.5-10.1) Total Bilirubin 0.3 mg/dL (0.2-1.0) Aspartate Amino Transf (AST/SGOT) 16 U/L (15-37) Alanine Aminotransferase (ALT/SGPT) 15 U/L (14-59) Alkaline Phosphatase 124 U/L (46-116) Total Protein 6.7 g/dL (6.4-8.2) Albumin 3.1 g/dL (3.4-5.0) Albumin/Globulin Ratio 0.9 (1.0-1.7) Laboratory Tests Test 05/19/18 08:01 White Blood Count 8.6 x10^3/uL (4.0-11.0) Red Blood Count 3.97 x10^6/uL (3.50-5.40) Hemoglobin 12.2 g/dL (12.0-15.5) Hematocrit 35.7 % (36.0-47.0) Mean Corpuscular Volume 90 fL (79-100) Mean Corpuscular Hemoglobin 31 pg (25-35) Mean Corpuscular Hemoglobin Concent 34 g/dL (31-37) Red Cell Distribution Width 13.3 % (11.5-14.5) Platelet Count 314 x10^3/uL (140-400) Neutrophils (%) (Auto) 63 % (31-73) Lymphocytes (%) (Auto) 30 % (24-48) Monocytes (%) (Auto) 5 % (0-9) Eosinophils (%) (Auto) 2 % (0-3) Basophils (%) (Auto) 0 % (0-3) Neutrophils # (Auto) 5.4 x10^3uL (1.8-7.7) Lymphocytes # (Auto) 2.6 x10^3/uL (1.0-4.8) Monocytes # (Auto) 0.5 x10^3/uL (0.0-1.1) Eosinophils # (Auto) 0.2 x10^3/uL (0.0-0.7) Basophils # (Auto) 0.0 x10^3/uL (0.0-0.2) Sodium Level 129 mmol/L (136-145) Potassium Level 4.3 mmol/L (3.5-5.1) Chloride Level 94 mmol/L (98-107) Carbon Dioxide Level 26 mmol/L (21-32) Anion Gap 9 (6-14) Blood Urea Nitrogen 3 mg/dL (7-20) Creatinine 0.9 mg/dL (0.6-1.0) Estimated GFR (Cockcroft-Gault) 63.9 BUN/Creatinine Ratio 3 (6-20) Glucose Level 106 mg/dL (70-99) Calcium Level 9.1 mg/dL (8.5-10.1) Total Bilirubin 0.3 mg/dL (0.2-1.0) Aspartate Amino Transf (AST/SGOT) 16 U/L (15-37) Alanine Aminotransferase (ALT/SGPT) 15 U/L (14-59) Alkaline Phosphatase 124 U/L (46-116) Total Protein 6.7 g/dL (6.4-8.2) Albumin 3.1 g/dL (3.4-5.0) Albumin/Globulin Ratio 0.9 (1.0-1.7) Images Images X-rays from 05/17/2018 and 05/19/2018 were interpreted by myself. She has a right total hip arthroplasty, dislocated, primary components are in place. Assessment/Plan Assessment/Plan We'll plan on taking her back to the operating room here in a couple of hours when there is availability for a closed reduction. I did discuss the risks, benefits, alternatives and rationale with her and recommended that we proceed. She will follow up with the orthopedic surgeon who performed her procedure, she has a clinic appointment tomorrow. From my standpoint, I think she could likely be safely discharged from the PACU to home TIM GILBERT II, MD May 19, 2018 08:45
[2018-05-19 09:00] VITALS: BP 149/59
[2018-05-19] MEDS ORDERED: IV RINGERS,LACTATED 1000ML 1,000 ML IV SCH (09:00)
--- NOTE | 2018-05-19 09:00 | NUR ---
Pt admitted from ED. Upon arrival pt c/o pain 12/24, VSS, assisted pt to bed. Brace on right leg, sensation intact, pulses 2t. Completed admission assessment. Orders being entered by Dr. Galeas. Will administer pain meds. Oriented to room and routines. Family at bedside. Call light within reach.
[2018-05-19] MEDS ORDERED: LIDOCAINE 1% PF 2 ML VIAL. ID PRN (09:15)
[2018-05-19] MEDS ORDERED: PROCHLORPERAZINE 10 MG/2 ML VIAL. IV PRN (09:15)
[2018-05-19] MEDS ORDERED: fentaNYL PF VIAL 100 MCG/2 ML VIAL IV PRN ×2 (09:15)
[2018-05-19] MEDS ORDERED: ONDANSETRON PF 4 MG/2 ML VIAL. IV PRN (09:15)
[2018-05-19] MEDS ORDERED: VENL75CA6 PO (09:27)
[2018-05-19] MEDS: ALPRAZolam 1 MG TABLET PO SCH ×2 (09:30→13:00)
[2018-05-19] MEDS ORDERED: ASPIRIN 325 MG TABLET PO SCH (09:30)
[2018-05-19] MEDS ORDERED: LEVOTHYROXINE 150 MCG TABLET PO SCH (09:30)
[2018-05-19] MEDS: tiZANidine 4 MG TABLET. PO SCH ×2 (09:30→13:00)
[2018-05-19] MEDS: GABAPENTIN 300 MG CAPSULE. PO SCH ×2 (09:30→14:00)
[2018-05-19] MEDS ORDERED: PANTOPRAZOLE 40 MG TABLET.DR. PO SCH (09:30)
[2018-05-19] MEDS ORDERED: OMEGA-3 FATTY ACIDS/FISH OIL 1,000 MG CAPSULE. PO SCH (09:30)
[2018-05-19] MEDS: OXYBUTYNIN CHLORIDE 5 MG TABLET PO SCH ×2 (09:30→14:00)
[2018-05-19] MEDS: MAGNESIUM OXIDE 400 MG TABLET PO SCH ×2 (09:30→13:00)
[2018-05-19] MEDS ORDERED: FLUTICASONE 50MCG/NASAL SPRAY 16GM BOTTLE. NS SCH (09:30)
[2018-05-19] MEDS ORDERED: busPIRone 10 MG TABLET. PO SCH (09:30)
[2018-05-19] MEDS ORDERED: VITAMIN E 200 UNIT CAPSULE. PO SCH (09:30)
--- NOTE | 2018-05-19 09:50 | NUR ---
IP: Pt has had a hx of mrsa since 2006 with most recent in sputum on 12/01/16. Pt to be in contact precautions until there is one additional negative mrsa screen, no open wounds and no cough.
[2018-05-19] MEDS: fentaNYL PF VIAL 100 MCG/2 ML VIAL IV PRN ×2 (09:55→13:11)
[2018-05-19] MEDS ORDERED: ALBUTEROL SULFATE 2.5 MG/3 ML NEBU. NEB PRN (10:00)
[2018-05-19] MEDS ORDERED: PROPOFOL 20 ML IV ONE (10:05)
--- NOTE | 2018-05-19 10:29 | PDOC4 ---
Operative Note Operative Note Date of procedure: 05/19/2018 Preoperative diagnosis: Dislocation of right total hip arthroplasty Postoperative diagnosis: Same Operative procedure: Closed reduction right total hip arthroplasty Surgeon: Randal Anesthesia: Propofol deep sedation provided by anesthesia Estimated blood loss: None Complications: None Operative indications: Please see Dr. Bejarano's consultation for detailed indications and note that Dr. Richardson performed recent surgery about a month ago putting a bigger ball in to hopefully solve a dislocating problem of her right hip. He had also done her previous surgeries and she has had multiple dislocations, and actually underwent a closed reduction procedure only 2 days ago and was scheduled to follow-up with Dr. Richardson tomorrow. X-rays showed dislocation of a otherwise well fixed total hip arthroplasty. I went over with her the proposed closed reduction with follow-up with her normal orthopedist to pursue further treatment options. She agreed to proceed with the closed reduction procedure and informed consent was obtained Operative text: Patient was identified procedure verified. After adequate amounts of deep sedation provided by anesthesia and timeout was performed verifying the procedure, the right hip was reduced with a traction/counter traction maneuver and postoperative x-rays showed good reduction of the hip arthroplasty and likewise confirmed component placement and concentric reduction. I then placed her in a knee immobilizer and she will follow-up as scheduled, follow-up this week with Dr. Richardson. She tolerated the procedure well and discharge is planned upon satisfactory recovery from the anesthesia sedation MARSHAL BOWER MD May 19, 2018 10:29
[2018-05-19] MEDS: ALBUTEROL SULFATE 2.5 MG/3 ML NEBU. NEB SCH ×2 (11:42→15:49)
[2018-05-19] MEDS ORDERED: NON FORMULARY ITEM (Albuterol Sulfate (Albuterol Sulfate Neb Soln) 1 VIAL) NEB SCH (13:00)
--- NOTE | 2018-05-19 13:16 | HP ---
ADMIT DATE: 05/19/2018 CHIEF COMPLAINT: Right hip pain. HISTORY OF PRESENT ILLNESS AND HOSPITAL COURSE: This patient is a 62-year-old female who came in with increasing right hip pain after apparent dislocation. She was brought in by EMS. The patient has had multiple hip dislocations and is usually cared for at [facility] by Dr. Riley. The patient was brought closer to the ER due to pain and was treated in the Emergency Room with IV fentanyl. She improved, and Orthopedic Surgery was consulted and outpatient admission was recommended for relocation of hip and early discharge if stable, to follow up with her personal orthopedic physician. PAST MEDICAL HISTORY: Significant for 1. Coronary artery disease with stent placement and history of cardiac arrest in 2006. 2. COPD. 3. Previous CVA. 4. Right upper lobe pulmonary embolus. 5. History of bradycardia. 6. History of hyponatremia. 7. Osteoarthritis with left total hip arthroplasty as well as right total hip arthroplasty. FAMILY HISTORY: Mother with cardiac disease and had a CVA and stroke. Father passed with ALS. She has a sister with diabetes. PAST SURGICAL HISTORY: Significant with a history of hysterectomy in 1982, cholecystectomy in 1982. Sinus surgery, partial colectomy and ileostomy in 2010. Hernia repair, back surgery in 2012. Multiple revisions on right hip, total hip on the left side, right total knee arthroplasty, cardiac stent. Total proctectomy, ileostomy revision, revision of knee replacement in 2016. Recurrent hernia repair with mesh in 2018. ALLERGIES: THE PATIENT EXHIBITS ALLERGIES TO DILANTIN, WHICH CAUSES A RASH. DOXYCYCLINE CAUSES VOMITING. ELIQUIS , SHE EXHIBITED INTOLERANCES. REVIEW OF SYSTEMS: The patient was in her usual state of health until recent hip dislocation having chronic pain. She denies any recent weight loss, weight gain, night sweats, cough, congestion, nausea, vomiting, diarrhea. PHYSICAL EXAMINATION: GENERAL: This is a well-nourished, well-developed female who is slightly sedated from pain medication, but still complaining of pain. HEENT: Benign except for poor dentition. NECK: Supple. CARDIAC: Regular rate and rhythm. LUNGS: Clear. ABDOMEN: Soft, nontender. EXTREMITIES: There are 2+ pulses. NEUROLOGIC: Limited, but showed no unilateral findings. ASSESSMENT: Right hip dislocation. PLAN: To proceed with orthopedic consultation and anesthetic manipulation and possible surgical revision with early discharge if stable, to follow up with personal orthopedic physician. TIFFANI MARINELLI MD DR: TAMI/joshua JOB#: [id number] / [id number]
[2018-05-19] MEDS ORDERED: VENLAFAXINE 75 MG TABLET. PO SCH (14:00)
[2018-05-19 15:00] VITALS: BP 113/70
--- NOTE | 2018-05-19 17:09 | NUR ---
Pt discharged home with self care. Discharge instructions and precautions discussed. Pt verbalized understanding. She has a follow up appt tomorrow with her orthopedic surgery. IV removed by DIVIDEND DEPOSIT VOUCHER CLERK. Pt taken via wheelchair by DIVIDEND DEPOSIT VOUCHER CLERK to main entrance and was secured in vehicle with friend.
[2018-05-19] MEDS ORDERED: BUDESONIDE 0.5 MG/2 ML NEBU. NEB SCH (20:00)
[2018-05-19] MEDS ORDERED: ATORVASTATIN CALCIUM 40 MG TABLET. PO SCH (21:00)
[2018-05-19] MEDS ORDERED: MIRTAZAPINE 15 MG TABLET PO SCH (21:00)
[2018-05-19] MEDS ORDERED: ENOXAPARIN 40 MG/0.4 ML SYRINGE. SQ SCH (21:00)
[2018-05-19] MEDS ORDERED: OLANZapine 5 MG TABLET PO SCH (21:00)
[2018-05-20] MEDS ORDERED: VENLAFAXINE HCL PO SCH (09:00)
[2018-05-26] MEDS ORDERED: ERGOCALCIFEROL (VITAMIN D2) 50,000 UNIT CAPSULE. PO SCH (09:00)
[2018-08-10] MEDS ORDERED: PRED20TA PO (18:51)
[2018-08-10] MEDS ORDERED: LIDO700A39 TP (18:51)
== END 2018-05-19 16:40 | disposition home or self-care (01) ==
LOC: ER 07:12 → 4 NORTH 07:40
PROVIDERS: ADMIT Family Medicine; ATTEND Family Medicine
DX: S73.004A Unspecified dislocation of right hip, initial encounter (principal); M24.459 Recurrent dislocation, unspecified hip; F41.9 Anxiety disorder, unspecified; J40 Bronchitis, not specified as acute or chronic; J44.9 Chronic obstructive pulmonary disease, unspecified; F32.9 Major depressive disorder, single episode, unspecified; R56.9 Unspecified convulsions; Z90.710 Acquired absence of both cervix and uterus; Z98.890 Other specified postprocedural states; N28.9 Disorder of kidney and ureter, unspecified; I63.9 Cerebral infarction, unspecified; I11.0 Hypertensive heart disease with heart failure; I50.9 Heart failure, unspecified; Z95.5 Presence of coronary angioplasty implant and graft; T84.020A Dislocation of internal right hip prosthesis, initial encounter; Y79.2 Prosthetic and other implants, materials and accessory orthopedic devices associated with adverse incidents; Z86.73 Personal history of transient ischemic attack (TIA), and cerebral infarction without residual deficits; Z86.711 Personal history of pulmonary embolism; R00.1 Bradycardia, unspecified; E87.1 Hypo-osmolality and hyponatremia; M19.90 Unspecified osteoarthritis, unspecified site; Z96.642 Presence of left artificial hip joint; Z96.651 Presence of right artificial knee joint; Z82.3 Family history of stroke
CPT/HCPCS: 27266; 36415; 73502; 80053; 85025; 85610; 94640; 94760; 96374; 96375; 96376; 97161; 97166; 99284; G0378; J2270; J2704; J3010; J7613; G0379

== ENCOUNTER 2018-05-27 23:23 | Observation (INO) | payer OTHER ==
[~2018-05-27] VITALS: Ht 174 cm; Wt 84.1 kg
[~2018-05-27 23:23] MED LIST changes: +VENL75CA6 PO
[2018-05-27 23:45] LABS: BASO # 0.1 x10^3/uL (0.0-0.2); BASO % 0 % (0-3); EOS # 0.2 x10^3/uL (0.0-0.7); EOS % 1 % (0-3); HEMATOCRIT 36.2 % (36.0-47.0); HEMOGLOBIN 12.3 g/dL (12.0-15.5); LYMPH # 2.6 x10^3/uL (1.0-4.8); LYMPH % 17 % (24-48); MEAN CORPUSCULAR HEMOGLOBIN 31 pg (25-35); MEAN CORPUSCULAR HGB CONC 34 g/dL (31-37); MEAN CORPUSCULAR VOLUME 91 fL (79-100); MONO # 0.7 x10^3/uL (0.0-1.1); MONO % 5 % (0-9); NEUT % 77 % (31-73); PLATELET COUNT 384 x10^3/uL (140-400); RED CELL DISTRIBUTION WIDTH 13.5 % (11.5-14.5); WHITE BLOOD COUNT 15.5 x10^3/uL (4.0-11.0)
[2018-05-27] MEDS ORDERED: ONDANSETRON PF 4 MG/2 ML VIAL. IV ONE (23:45)
[2018-05-27] MEDS ORDERED: fentaNYL PF VIAL 100 MCG/2 ML VIAL IV ONE (23:45)
[2018-05-27 23:54] LABS: CALCIUM 8.9 mg/dL (8.5-10.1); GFR 56.6
[2018-05-27 23:59] LABS: ALBUMIN 3.1 g/dL (3.4-5.0); ALBUMIN/GLOBULIN RATIO 0.7 (1.0-1.7); TOTAL BILIRUBIN 0.3 mg/dL (0.2-1.0); TOTAL PROTEIN 7.6 g/dL (6.4-8.2)
[2018-05-28 00:08] VITALS: BP 108/67
[2018-05-28] MEDS ORDERED: NALOXONE 2 MG/2 ML DISP.SYRIN. ONE (00:14)
[2018-05-28] MEDS ORDERED: PROPOFOL 20 ML IV ONE (00:15)
--- NOTE | 2018-05-28 01:11 | RAD ---
Indication: Dislocated hip status post reduction TECHNIQUE: Single AP view of the right hip joint COMPARISON: Previous exam from 05/27/2018 Findings/ impression: Interval reduction of previously seen right hip joint dislocation. No acute fracture. Electronically signed by: Herb Lima DO (05/28/2018 1:08 AM) [id number]
--- NOTE | 2018-05-28 01:14 | PHYS DOC ---
Past Medical History Past Medical History: Anxiety, Bronchitis, CHF, COPD, CVA, Depression, Hypertension, MT, Renal Disease, Seizure, Stroke, Other Additional Past Medical Histor: "C.diffRotted colon out.I have an ileostomy." Past Surgical History: Appendectomy, Cholecystectomy, Hysterectomy, Knee Replacement, Other Additional Past Surgical Histo: Back SX, L ROTA, Cardiac stent,COLON\\RECTUM, BX KNEE, BX THUMB JOINT, R HIP Alcohol Use: None Drug Use: None Adult General Chief Complaint Chief Complaint: HIP PAIN HPI HPI Patient is a 62-year-old female who presents with complaint of severe right hip pain with suspected dislocation. Patient states that she had gone to the bathroom and became very lightheaded and had called out to her sister who would come into the bathroom to check on her and in order to prevent patient from falling, she had lowered patient to the ground and while lowering, patient had been her knee and felt her hip pop. Patient has had several recent dislocations of her right hip prosthesis. She was seen here on the and may for right hip dislocation. Patient rates her pain to be a 10 out of 10. She states that pain is worsened with any movement. Review of Systems Review of Systems Constitutional: Denies fever or chills [] Respiratory: Denies cough or shortness of breath [] Cardiovascular: No additional information not addressed in HPI [] GI: Denies abdominal pain, nausea, vomiting, bloody stools or diarrhea [] Musculoskeletal: Complains of right hip pain [] All other systems were reviewed and found to be within normal limits, except as documented in this note. Current Medications Current Medications Current Medications Medications (Trade) Dose Ordered Sig/Joel Start Time Stop Time Status Last Admin Dose Admin Acetaminophen/ Hydrocodone Bitart (Lortab 7.5/325) 1 tab 1X ONCE 05/28/18 01:30 05/28/18 01:31 DC Fentanyl Citrate (Fentanyl 2ml Vial) 50 mcg 1X ONCE 05/27/18 23:45 05/27/18 23:46 DC 05/27/18 23:46 50 MCG Naloxone HCl (Narcan) 2 mg STK-MED ONCE 05/28/18 00:14 05/28/18 00:15 DC Ondansetron HCl (Zofran) 4 mg 1X ONCE 05/27/18 23:45 3/13/19 23:46 DC 05/27/18 23:45 4 MG Propofol 20 ml @ 0 mls/hr 1X ONCE 05/28/18 00:15 05/28/18 00:16 DC 05/28/18 00:45 6 MLS/HR Allergies Allergies Allergies Coded Allergies Type Severity Reaction Last Updated Verified apixaban Allergy Intermediate Swelling 05/17/18 Yes hydromorphone Allergy Intermediate 05/17/18 Yes phenytoin sodium Allergy Intermediate 05/17/18 Yes phenytoin sodium extended Allergy Intermediate 05/17/18 Yes I S O L A T I O N *CONTACT* Allergy Unknown 05/17/18 Yes doxycycline Adverse Reaction Intermediate GI UPSET 05/17/18 Yes pregabalin Adverse Reaction Intermediate NIGHTMARES 05/17/18 Yes Physical Exam Physical Exam Constitutional: Well developed, well nourished, in moderate distress. [] HENT: Normocephalic, atraumatic, bilateral external ears normal, oropharynx moist, no oral exudates, nose normal. [] Eyes: PERRLA, EOMI, conjunctiva normal, no discharge. [] Neck: Normal range of motion, no tenderness, supple, no stridor. [] Cardiovascular: Regular rate and rhythm[] Lungs & Thorax: Bilateral breath sounds clear to auscultation [] Abdomen: Bowel sounds normal, soft, no tenderness. [] Skin: Warm, dry, no erythema, no rash. [] Extremities: Right hip demonstrates shortening with internal rotation. Palpation over the right hip prosthesis is exquisitely tender. [] Neurologic: Alert and oriented X 3, no focal deficits noted. [] Current Patient Data Vital Signs Vital Signs Date Time Temp Pulse Resp B/P (MAP) Pulse Ox O2 Delivery O2 Flow Rate FiO2 05/28/18 00:08 98.4 92 12 108/67 10.0 94 13 4.0 05/27/18 23:46 98 Room Air Lab Values Laboratory Tests Test 05/27/18 23:30 White Blood Count 15.5 x10^3/uL (4.0-11.0) H Red Blood Count 4.00 x10^6/uL (3.50-5.40) Hemoglobin 12.3 g/dL (12.0-15.5) Hematocrit 36.2 % (36.0-47.0) Mean Corpuscular Volume 91 fL (79-100) Mean Corpuscular Hemoglobin 31 pg (25-35) Mean Corpuscular Hemoglobin Concent 34 g/dL (31-37) Red Cell Distribution Width 13.5 % (11.5-14.5) Platelet Count 384 x10^3/uL (140-400) Neutrophils (%) (Auto) 77 % (31-73) H Lymphocytes (%) (Auto) 17 % (24-48) L Monocytes (%) (Auto) 5 % (0-9) Eosinophils (%) (Auto) 1 % (0-3) Basophils (%) (Auto) 0 % (0-3) Neutrophils # (Auto) 12.0 x10^3uL (1.8-7.7) H Lymphocytes # (Auto) 2.6 x10^3/uL (1.0-4.8) Monocytes # (Auto) 0.7 x10^3/uL (0.0-1.1) Eosinophils # (Auto) 0.2 x10^3/uL (0.0-0.7) Basophils # (Auto) 0.1 x10^3/uL (0.0-0.2) Sodium Level 127 mmol/L (136-145) L Potassium Level 4.0 mmol/L (3.5-5.1) Chloride Level 92 mmol/L (98-107) L Carbon Dioxide Level 29 mmol/L (21-32) Anion Gap 6 (6-14) Blood Urea Nitrogen 6 mg/dL (7-20) L Creatinine 1.0 mg/dL (0.6-1.0) Estimated GFR (Cockcroft-Gault) 56.6 BUN/Creatinine Ratio 6 (6-20) Glucose Level 111 mg/dL (70-99) H Calcium Level 8.9 mg/dL (8.5-10.1) Total Bilirubin 0.3 mg/dL (0.2-1.0) Aspartate Amino Transferase (AST) 22 U/L (15-37) Alanine Aminotransferase (ALT) 18 U/L (14-59) Alkaline Phosphatase 144 U/L (46-116) H Total Protein 7.6 g/dL (6.4-8.2) Albumin 3.1 g/dL (3.4-5.0) L Albumin/Globulin Ratio 0.7 (1.0-1.7) L Laboratory Tests 05/27/18 23:30 Laboratory Tests 05/27/18 23:30 EKG EKG [] Radiology/Procedures Radiology/Procedures [] Impressions: Right total hip arthroplasty with posterior superior dislocation of the femoral component relative to the acetabular component. Course & Med Decision Making Course & Med Decision Making Pertinent Labs and Imaging studies reviewed. (See chart for details) Hip X-ray 2V Interpreted by me: Bones: Right hip and pelvis Joints: Posterior dislocation of the hip joint Foreign body: None Procedural Sedation: Pre-assessment performed. See preceding complete history and physical for details. Time out performed. See sedation documentation for details. Medication(s): Propofol Complications: No hypoxic or apneic events Recovered without incident. Greater than 15 minutes of face to face time included in sedation and recovery. Hip Reduction by me: Anesthesia: Propofol Location: Right hip Technique: Traction/countertraction Results: Mandaen of normal anatomic positioning and tactile pop Compl: Neurovascularly intact post procedure. Post-reduction X-ray right hip Interpreted by me: Bones: Right hip Joints: Relocation of previously noted dislocation of the right hip joint Foreign body: None Dragon Disclaimer Dragon Disclaimer This electronic medical record was generated, in whole or in part, using a voice recognition dictation system. Departure Departure Impression: Primary Impression: Hip dislocation, right Disposition: 09 ADMITTED INPATIENT Admitting Physician: Narda Leon Condition: IMPROVED Referrals: NARDA LEON MD (PCP) Problem Qualifiers Primary Impression: Hip dislocation, right Encounter type: initial encounter Qualified Codes: S73.004A - Unspecified dislocation of right hip, initial encounter ROQUE ROSALES Jr. DO May 28, 2018 01:14
[2018-05-28] MEDS ORDERED: HYDROcodone/APAP 7.5/325MG 1 TAB TABLET PO ONE (01:30)
[2018-05-28] MEDS ORDERED: fentaNYL PF VIAL 100 MCG/2 ML VIAL IV PRN (02:00)
[2018-05-28] MEDS ORDERED: ONDANSETRON PF 4 MG/2 ML VIAL. IV PRN (02:00)
[2018-05-28] MEDS ORDERED: IV NORMAL SALINE 1000ML BAG 1,000 ML IV SCH (02:30)
[2018-05-28 03:00] VITALS: BP 109/71
[2018-05-28] MEDS ORDERED: IV NORMAL SALINE 1000ML BAG 1,000 ML IV ONE (04:00)
--- NOTE | 2018-05-28 05:33 | NUR ---
Received report from Makenna RN, Emergency Department. Patient arrived to unit at 0328 via hospital bed with no family members present. Patient has complaint of right hip pain, her pain score is rated at a 6 out of a 10. During admission status patient wishes to be DNR, she was able to understand this order when asked what the outcome of a DNR status would mean in the event she became unresponsive. Dr. Leon office was contacted to obtain order to change CODE STATUS of patient, the order was received at 0515 hours via telephone order from Dr. Honeycutt, Dr. Honeycutt also stated they would address the medications when they rounded on the patient today. Dr. Almonte was orientated to the unit, bed was placed in the lowest position and locked, and call light was placed within reach. Will continue to monitor the patient.
--- NOTE | 2018-05-28 06:21 | RAD ---
Indication: Dislocated hip TECHNIQUE: 2 views of the right hip joint COMPARISON: None FINDINGS/ impression: Posterior superior dislocation of the prostatic right hip. Status post total bilateral hip arthroplasty. Left hip joint is within normal limits. No acute fractures. Electronically signed by: Herb Lima DO (05/28/2018 6:18 AM) [facility]
[2018-05-28 07:00] VITALS: BP 101/59
--- NOTE | 2018-05-28 08:05 | NUR ---
This RN got pt up from bed per pt's request, pt is able to ambulate with walker and hip brace with minimal assist, states that she has care takers and HH at home, refusing to wait for PT for eval, wants to go home soon. Dr. Honeycutt paged to inform her of pt's request.
--- NOTE | 2018-05-28 08:30 | NUR ---
This nurse found a wound next to pt's stoma while changing her illeostomy bag. Pt states that she was supposed to be following up with our wound clinic but had to cancel d/t her hip dislocations. Wound pictured and measured, slough noted in the wound with a scant pink drainage. Wound was cleaned with wound wash, skin prep and stoma powder applied to area around stoma, a small piece of barrier ring applied to cover the wound prior to applying the ostomy bag back on. Pt encouraged to call wound clinic to reschedule her appt as she is unwilling to wait for them to make rounds. Pt is being discharge this am.
--- NOTE | 2018-05-28 08:52 | PDOC1 ---
History and Physical Date of Admission Date of Admission 05/28/18 Identification/Chief Complaint Chief Complaint Right hip dislocation Source Source: Patient History of Present Illness History of Present Illness Pt states that her right hip "popped out of socket" last night when she was working on emptying her ostomy bag and her catheter bag. Had a lot of pain and came to the ER. Hip was reduced. Pt says that she has f/u apt already scheduled with her surgeon (pt has had hip replacement) and wants to leave Past Medical History Cardiovascular: AFIB, CAD, HTN, Hyperlipidemia, Other Pulmonary: COPD CENTRAL NERVOUS SYSTEM: CVA GI: GERD, Other Heme/Onc: Anemia NOS Psych: Anxiety, Depression Infectious disease: No pertinent hx Endocrine: Hypothyroidism Past Surgical History Past Surgical History: Cholecystectomy, Hernia Repair, Total hip replacement, Total knee replacement, Hysterectomy, Other Family History Family History: Stroke Social History ALCOHOL: none Drugs: None Current Problem List Problem List Problems Medical Problems: (1) Hip dislocation, right Status: Acute Current Medications Current Medications Current Medications Medications (Trade) Dose Ordered Sig/Joel Start Time Stop Time Status Last Admin Dose Admin Acetaminophen/ Hydrocodone Bitart (Lortab 7.5/325) 1 tab 1X ONCE 05/28/18 01:30 05/28/18 01:31 DC 05/28/18 03:06 1 TAB Fentanyl Citrate (Fentanyl 2ml Vial) 25 mcg PRN Q2HRS PRN 05/28/18 02:00 05/28/18 08:26 25 MCG Naloxone HCl (Narcan) 2 mg STK-MED ONCE 05/28/18 00:14 05/28/18 00:15 DC Ondansetron HCl (Zofran) 4 mg PRN Q8HRS PRN 05/28/18 02:00 05/29/18 01:59 Propofol 20 ml @ 0 mls/hr 1X ONCE 05/28/18 00:15 05/28/18 00:16 DC 05/28/18 00:45 6 MLS/HR Sodium Chloride 1,000 ml @ 1,000 mls/hr 1X ONCE 05/28/18 04:00 05/28/18 04:59 DC 05/28/18 00:09 1,000 MLS/HR Allergies Allergies Allergies Coded Allergies Type Severity Reaction Last Updated Verified apixaban Allergy Intermediate Swelling 05/17/18 Yes hydromorphone Allergy Intermediate 05/17/18 Yes phenytoin sodium Allergy Intermediate 05/17/18 Yes phenytoin sodium extended Allergy Intermediate 05/17/18 Yes I S O L A T I O N *CONTACT* Allergy Unknown 05/17/18 Yes doxycycline Adverse Reaction Intermediate GI UPSET 05/17/18 Yes pregabalin Adverse Reaction Intermediate NIGHTMARES 05/17/18 Yes ROS Review of System CONSTITUTIONAL: No fever or chills EYES: No recent changes SKIN: No rash or itching CARDIOVASCULAR: No chest pain, syncope, palpitations, or edema RESPIRATORY: No SOB or cough GASTROINTESTINAL: No nausea, vomiting or abdominal pain NEUROLOGICAL: No headaches or weakness ENDOCRINE: No cold or heat intolerance GENITOURINARY: No urgency or frequency of urination MUSCULOSKELETAL: +hip pain LYMPHATICS: No enlarged lymph nodes PSYCHIATRIC: No anxiety or depression Physical Exam Physical Exam GEN.: No apparent distress. Alert and oriented. HEENT: Head is normocephalic, atraumatic NECK: Supple. LUNGS: Clear to auscultation. HEART: RRR, S1, S2 present. Peripheral pulses intact ABDOMEN: Soft, nontender. Positive bowel sounds. Ostomy in place EXTREMITIES: Without any cyanosis. NEUROLOGIC: Normal speech, normal tone PSYCHIATRIC: Normal affect, normal mood. SKIN: No ulcerations Vitals Vitals Vital Signs Date Time Temp Pulse Resp B/P (MAP) Pulse Ox O2 Delivery O2 Flow Rate FiO2 05/28/18 08:26 Room Air 05/28/18 07:00 97.9 78 18 101/59 (73) 99 2.0 97.9 Labs Labs Laboratory Tests Test 05/27/18 23:30 White Blood Count 15.5 x10^3/uL (4.0-11.0) Red Blood Count 4.00 x10^6/uL (3.50-5.40) Hemoglobin 12.3 g/dL (12.0-15.5) Hematocrit 36.2 % (36.0-47.0) Mean Corpuscular Volume 91 fL (79-100) Mean Corpuscular Hemoglobin 31 pg (25-35) Mean Corpuscular Hemoglobin Concent 34 g/dL (31-37) Red Cell Distribution Width 13.5 % (11.5-14.5) Platelet Count 384 x10^3/uL (140-400) Neutrophils (%) (Auto) 77 % (31-73) Lymphocytes (%) (Auto) 17 % (24-48) Monocytes (%) (Auto) 5 % (0-9) Eosinophils (%) (Auto) 1 % (0-3) Basophils (%) (Auto) 0 % (0-3) Neutrophils # (Auto) 12.0 x10^3uL (1.8-7.7) Lymphocytes # (Auto) 2.6 x10^3/uL (1.0-4.8) Monocytes # (Auto) 0.7 x10^3/uL (0.0-1.1) Eosinophils # (Auto) 0.2 x10^3/uL (0.0-0.7) Basophils # (Auto) 0.1 x10^3/uL (0.0-0.2) Sodium Level 127 mmol/L (136-145) Potassium Level 4.0 mmol/L (3.5-5.1) Chloride Level 92 mmol/L (98-107) Carbon Dioxide Level 29 mmol/L (21-32) Anion Gap 6 (6-14) Blood Urea Nitrogen 6 mg/dL (7-20) Creatinine 1.0 mg/dL (0.6-1.0) Estimated GFR (Cockcroft-Gault) 56.6 BUN/Creatinine Ratio 6 (6-20) Glucose Level 111 mg/dL (70-99) Calcium Level 8.9 mg/dL (8.5-10.1) Total Bilirubin 0.3 mg/dL (0.2-1.0) Aspartate Amino Transf (AST/SGOT) 22 U/L (15-37) Alanine Aminotransferase (ALT/SGPT) 18 U/L (14-59) Alkaline Phosphatase 144 U/L (46-116) Total Protein 7.6 g/dL (6.4-8.2) Albumin 3.1 g/dL (3.4-5.0) Albumin/Globulin Ratio 0.7 (1.0-1.7) Laboratory Tests Test 05/27/18 23:30 White Blood Count 15.5 x10^3/uL (4.0-11.0) Red Blood Count 4.00 x10^6/uL (3.50-5.40) Hemoglobin 12.3 g/dL (12.0-15.5) Hematocrit 36.2 % (36.0-47.0) Mean Corpuscular Volume 91 fL (79-100) Mean Corpuscular Hemoglobin 31 pg (25-35) Mean Corpuscular Hemoglobin Concent 34 g/dL (31-37) Red Cell Distribution Width 13.5 % (11.5-14.5) Platelet Count 384 x10^3/uL (140-400) Neutrophils (%) (Auto) 77 % (31-73) Lymphocytes (%) (Auto) 17 % (24-48) Monocytes (%) (Auto) 5 % (0-9) Eosinophils (%) (Auto) 1 % (0-3) Basophils (%) (Auto) 0 % (0-3) Neutrophils # (Auto) 12.0 x10^3uL (1.8-7.7) Lymphocytes # (Auto) 2.6 x10^3/uL (1.0-4.8) Monocytes # (Auto) 0.7 x10^3/uL (0.0-1.1) Eosinophils # (Auto) 0.2 x10^3/uL (0.0-0.7) Basophils # (Auto) 0.1 x10^3/uL (0.0-0.2) Sodium Level 127 mmol/L (136-145) Potassium Level 4.0 mmol/L (3.5-5.1) Chloride Level 92 mmol/L (98-107) Carbon Dioxide Level 29 mmol/L (21-32) Anion Gap 6 (6-14) Blood Urea Nitrogen 6 mg/dL (7-20) Creatinine 1.0 mg/dL (0.6-1.0) Estimated GFR (Cockcroft-Gault) 56.6 BUN/Creatinine Ratio 6 (6-20) Glucose Level 111 mg/dL (70-99) Calcium Level 8.9 mg/dL (8.5-10.1) Total Bilirubin 0.3 mg/dL (0.2-1.0) Aspartate Amino Transf (AST/SGOT) 22 U/L (15-37) Alanine Aminotransferase (ALT/SGPT) 18 U/L (14-59) Alkaline Phosphatase 144 U/L (46-116) Total Protein 7.6 g/dL (6.4-8.2) Albumin 3.1 g/dL (3.4-5.0) Albumin/Globulin Ratio 0.7 (1.0-1.7) VTE Prophylaxis Ordered VTE Prophylaxis Devices: No VTE Pharmacological Prophylaxi: No Assessment/Plan Assessment/Plan Pt admitted with right hip displacement. Pt wanting to be discharged to f/u with her orthopedic doctor JAMIE MATOS MD May 28, 2018 08:52
--- NOTE | 2018-05-28 08:58 | PDOC3 ---
Discharge Summary Date of Admission: May 28, 2018 Date of Discharge: May 28, 2018 Follow-Up: Other (2 weeks with ortho) Admitting Diagnosis comment: Right hip pain FINAL DIAGNOSIS Problems Medical Problems: (1) Hip dislocation, right Status: Acute Brief Hospital Course Pt is a 62yo CF admitted after right hip dislocation 1)Right hip instability- pt is s/p hip replacement and has been having frequent hip dislocations. Pt stated that she wanted to go home to f/u with her own orthopedic doctor. Pt was able to ambulate with her walker with the nurse. Pt DC'd CONDITION AT DISCHARGE: Stable Discharge Medications Current Medications Fentanyl Citrate (Fentanyl 2ml Vial) 50 mcg 1X ONCE IV Last administered on at 23:46; Admin Dose 50 MCG; Start 05/27/18 at 23:45; Stop 05/27/18 at 23: 46; Status DC Ondansetron HCl (Zofran) 4 mg 1X ONCE IV Last administered on 05/27/18at 23:45 ; Admin Dose 4 MG; Start 05/27/18 at 23:45; Stop 05/27/18 at 23:46; Status DC Propofol 20 ml @ 0 mls/hr 1X ONCE IV Last administered on 05/28/18at 00:45; Admin Dose 6 MLS/HR; Start 05/28/18 at 00:15; Stop 05/28/18 at 00:16; Status DC Naloxone HCl (Narcan) 2 mg STK-MED ONCE .ROUTE ; Start 05/28/18 at 00:14; Stop 05/28/18 at 00:15; Status DC Acetaminophen/ Hydrocodone Bitart (Lortab 7.5/325) 1 tab 1X ONCE PO Last administered on 05/28/18at 03:06; Admin Dose 1 TAB; Start 05/28/18 at 01:30; Stop 05/28/18 at 01:31; Status DC Ondansetron HCl (Zofran) 4 mg PRN Q8HRS PRN IV NAUSEA/VOMITING 1ST CHOICE; Start 05/28/18 at 02:00; Stop 05/29/18 at 01:59 Fentanyl Citrate (Fentanyl 2ml Vial) 25 mcg PRN Q2HRS PRN IV SEVERE PAIN Last administered on 05/28/18at 08:26; Admin Dose 25 MCG; Start 05/28/18 at 02:00 Sodium Chloride 1,000 ml @ 100 mls/hr Q10H IV Last administered on 05/28/18at 03:59; Admin Dose 100 MLS/HR; Start 05/28/18 at 02:30; Stop 05/29/18 at 02:29 Sodium Chloride 1,000 ml @ 1,000 mls/hr 1X ONCE IV Last administered on at 00:09; Admin Dose 1,000 MLS/HR; Start 05/28/18 at 04:00; Stop 05/28/18 at 04:59; Status DC Active Scripts Active Levothyroxine Sodium 150 Mcg Tablet 1 Tab PO DAILY Reported Venlafaxine Hcl Er (Venlafaxine Hcl) 75 Mg Cap.er.24h 75 Mg PO DAILY Vitamin D2 (Ergocalciferol (Vitamin D2)) 50,000 Unit Capsule 1 Cap PO WEEKLY Flonase Allergy Relief (Fluticasone Propionate) 9.9 Ml [place].susp 2 Sprays NS DAILY Albuterol Sulfate Neb Soln (Albuterol Sulfate) 0.63 Mg/3 Ml Vial.neb 1 Vial NEB QID Detrol La (Tolterodine Tartrate) 2 Mg Cap.er.24h 1 Cap PO BID [Anusol-Hc] 25 Mg VAG HS Olanzapine 5 Mg Tablet 1 Tab PO QHS Buspirone Hcl 10 Mg Tablet 1 Tab PO BID Effexor Xr (Venlafaxine Hcl) 150 Mg Cap.er.24h 1 Cap PO DAILY Mirtazapine 30 Mg Tablet 1 Tab PO QHS Chantix (Varenicline Tartrate) 1 Mg Tablet 1 Mg PO BID Atorvastatin Calcium 20 Mg Tablet 40 Mg PO HS Vitamin E 400 Unit Capsule 400 Unit PO DAILY Fish Oil ([place]-3 Fatty Acids) 500 Mg Capsule 500 Mg PO DAILY Magnesium Oxide 400 Mg Tablet 400 Mg PO QID Xanax (Alprazolam) 1 Mg Tablet 1 Mg PO QID Lasix (Furosemide) 40 Mg Tablet 40 Mg PO DAILY Aspirin 325 Mg Tablet 325 Mg PO DAILY Gabapentin 600 Mg Tablet 600 Mg PO TID Tizanidine Hcl 4 Mg Tablet 4 Mg PO QID Omeprazole 20 Mg Tablet.dr 20 Mg PO DAILY07 Klor-Con (Potassium Chloride) 20 Meq Packet 40 Meq PO TID Proair Hfa Inhaler (Albuterol Sulfate) 8.5 Gm Hfa.aer.ad 8.5 Gm IH Q4HRS PRN Advair 500-50 Diskus (Fluticasone/Salmeterol) 1 Each Disk.w.dev 1 Each IH BID Vital Signs Vital Signs Date Time Temp Pulse Resp B/P (MAP) Pulse Ox O2 Delivery O2 Flow Rate FiO2 05/28/18 08:26 Room Air 05/28/18 07:00 97.9 78 18 101/59 (73) 99 2.0 97.9 Labs Laboratory Tests Test 05/27/18 23:30 White Blood Count 15.5 x10^3/uL (4.0-11.0) Red Blood Count 4.00 x10^6/uL (3.50-5.40) Hemoglobin 12.3 g/dL (12.0-15.5) Hematocrit 36.2 % (36.0-47.0) Mean Corpuscular Volume 91 fL (79-100) Mean Corpuscular Hemoglobin 31 pg (25-35) Mean Corpuscular Hemoglobin Concent 34 g/dL (31-37) Red Cell Distribution Width 13.5 % (11.5-14.5) Platelet Count 384 x10^3/uL (140-400) Neutrophils (%) (Auto) 77 % (31-73) Lymphocytes (%) (Auto) 17 % (24-48) Monocytes (%) (Auto) 5 % (0-9) Eosinophils (%) (Auto) 1 % (0-3) Basophils (%) (Auto) 0 % (0-3) Neutrophils # (Auto) 12.0 x10^3uL (1.8-7.7) Lymphocytes # (Auto) 2.6 x10^3/uL (1.0-4.8) Monocytes # (Auto) 0.7 x10^3/uL (0.0-1.1) Eosinophils # (Auto) 0.2 x10^3/uL (0.0-0.7) Basophils # (Auto) 0.1 x10^3/uL (0.0-0.2) Sodium Level 127 mmol/L (136-145) Potassium Level 4.0 mmol/L (3.5-5.1) Chloride Level 92 mmol/L (98-107) Carbon Dioxide Level 29 mmol/L (21-32) Anion Gap 6 (6-14) Blood Urea Nitrogen 6 mg/dL (7-20) Creatinine 1.0 mg/dL (0.6-1.0) Estimated GFR (Cockcroft-Gault) 56.6 BUN/Creatinine Ratio 6 (6-20) Glucose Level 111 mg/dL (70-99) Calcium Level 8.9 mg/dL (8.5-10.1) Total Bilirubin 0.3 mg/dL (0.2-1.0) Aspartate Amino Transf (AST/SGOT) 22 U/L (15-37) Alanine Aminotransferase (ALT/SGPT) 18 U/L (14-59) Alkaline Phosphatase 144 U/L (46-116) Total Protein 7.6 g/dL (6.4-8.2) Albumin 3.1 g/dL (3.4-5.0) Albumin/Globulin Ratio 0.7 (1.0-1.7) Laboratory Tests Test 05/27/18 23:30 White Blood Count 15.5 x10^3/uL (4.0-11.0) Red Blood Count 4.00 x10^6/uL (3.50-5.40) Hemoglobin 12.3 g/dL (12.0-15.5) Hematocrit 36.2 % (36.0-47.0) Mean Corpuscular Volume 91 fL (79-100) Mean Corpuscular Hemoglobin 31 pg (25-35) Mean Corpuscular Hemoglobin Concent 34 g/dL (31-37) Red Cell Distribution Width 13.5 % (11.5-14.5) Platelet Count 384 x10^3/uL (140-400) Neutrophils (%) (Auto) 77 % (31-73) Lymphocytes (%) (Auto) 17 % (24-48) Monocytes (%) (Auto) 5 % (0-9) Eosinophils (%) (Auto) 1 % (0-3) Basophils (%) (Auto) 0 % (0-3) Neutrophils # (Auto) 12.0 x10^3uL (1.8-7.7) Lymphocytes # (Auto) 2.6 x10^3/uL (1.0-4.8) Monocytes # (Auto) 0.7 x10^3/uL (0.0-1.1) Eosinophils # (Auto) 0.2 x10^3/uL (0.0-0.7) Basophils # (Auto) 0.1 x10^3/uL (0.0-0.2) Sodium Level 127 mmol/L (136-145) Potassium Level 4.0 mmol/L (3.5-5.1) Chloride Level 92 mmol/L (98-107) Carbon Dioxide Level 29 mmol/L (21-32) Anion Gap 6 (6-14) Blood Urea Nitrogen 6 mg/dL (7-20) Creatinine 1.0 mg/dL (0.6-1.0) Estimated GFR (Cockcroft-Gault) 56.6 BUN/Creatinine Ratio 6 (6-20) Glucose Level 111 mg/dL (70-99) Calcium Level 8.9 mg/dL (8.5-10.1) Total Bilirubin 0.3 mg/dL (0.2-1.0) Aspartate Amino Transf (AST/SGOT) 22 U/L (15-37) Alanine Aminotransferase (ALT/SGPT) 18 U/L (14-59) Alkaline Phosphatase 144 U/L (46-116) Total Protein 7.6 g/dL (6.4-8.2) Albumin 3.1 g/dL (3.4-5.0) Albumin/Globulin Ratio 0.7 (1.0-1.7) Allergies Allergies Coded Allergies Type Severity Reaction Last Updated Verified apixaban Allergy Intermediate Swelling 05/17/18 Yes hydromorphone Allergy Intermediate 05/17/18 Yes phenytoin sodium Allergy Intermediate 05/17/18 Yes phenytoin sodium extended Allergy Intermediate 05/17/18 Yes I S O L A T I O N *CONTACT* Allergy Unknown 05/17/18 Yes doxycycline Adverse Reaction Intermediate GI UPSET 05/17/18 Yes pregabalin Adverse Reaction Intermediate NIGHTMARES 05/17/18 Yes Disposition/Orders: D/C to Home JAMIE MATOS MD May 28, 2018 08:58
--- NOTE | 2018-05-28 09:25 | NUR ---
Discharge instructions given to pt. This nurse encouraged pt to follow up with ortho and wound care. Pt verbalized understanding. Pt dc via wc to entrance accompanied by friend.
[2018-08-10] MEDS ORDERED: LIDO700A39 TP (18:51)
[2018-08-10] MEDS ORDERED: PRED20TA PO (18:51)
== END 2018-05-28 09:20 | disposition home or self-care (01) ==
LOC: ER 23:23 → 4 NORTH 05-28 01:47
PROVIDERS: ADMIT Family Medicine; ATTEND Family Medicine
DX: S73.004A Unspecified dislocation of right hip, initial encounter (principal); F41.9 Anxiety disorder, unspecified; J44.9 Chronic obstructive pulmonary disease, unspecified; Z86.73 Personal history of transient ischemic attack (TIA), and cerebral infarction without residual deficits; G40.909 Epilepsy, unspecified, not intractable, without status epilepticus; I11.0 Hypertensive heart disease with heart failure; I50.9 Heart failure, unspecified; N28.9 Disorder of kidney and ureter, unspecified; J40 Bronchitis, not specified as acute or chronic; F32.9 Major depressive disorder, single episode, unspecified; I63.9 Cerebral infarction, unspecified; Z90.49 Acquired absence of other specified parts of digestive tract; Z90.710 Acquired absence of both cervix and uterus; Z95.5 Presence of coronary angioplasty implant and graft; R42 Dizziness and giddiness; K21.9 Gastro-esophageal reflux disease without esophagitis; E03.9 Hypothyroidism, unspecified; D64.9 Anemia, unspecified; E78.5 Hyperlipidemia, unspecified; I48.91 Unspecified atrial fibrillation; Z96.649 Presence of unspecified artificial hip joint; Z96.659 Presence of unspecified artificial knee joint; X58.XXXA Exposure to other specified factors, initial encounter; Y93.89 Activity, other specified; Y92.89 Other specified places as the place of occurrence of the external cause; Y99.8 Other external cause status
CPT/HCPCS: 36415; 73501; 73502; 80053; 85025; 87641; 96361; 96365; 96366; 96375; 96376; 99284; G0378; G0379; J2405; J2704; J3010; J7030

== ENCOUNTER → 2018-06-03 | Outpatient (CLI) | payer OTHER ==
[2018-05-28 07:00] VITALS: BP 101/59
[~2018-06-03] MED LIST changes: +LIDO700A39 TP; +PRED20TA PO
== END | disposition home or self-care (01) ==
LOC: PMGWOUND 11:17
PROVIDERS: ATTEND Preventive Medicine Undersea and Hyperbaric Medicine
DX: L89.893 Pressure ulcer of other site, stage 3 (principal); L89.212 Pressure ulcer of right hip, stage 2; L98.491 Non-pressure chronic ulcer of skin of other sites limited to breakdown of skin; E03.9 Hypothyroidism, unspecified; F41.8 Other specified anxiety disorders; G62.9 Polyneuropathy, unspecified; I48.0 Paroxysmal atrial fibrillation; I11.0 Hypertensive heart disease with heart failure; I50.9 Heart failure, unspecified; E78.2 Mixed hyperlipidemia; I25.2 Old myocardial infarction; G89.29 Other chronic pain; I87.2 Venous insufficiency (chronic) (peripheral); M19.90 Unspecified osteoarthritis, unspecified site; J44.9 Chronic obstructive pulmonary disease, unspecified; F32.9 Major depressive disorder, single episode, unspecified; I25.10 Atherosclerotic heart disease of native coronary artery without angina pectoris; G40.909 Epilepsy, unspecified, not intractable, without status epilepticus; K21.9 Gastro-esophageal reflux disease without esophagitis; E78.5 Hyperlipidemia, unspecified; F17.200 Nicotine dependence, unspecified, uncomplicated; Z95.5 Presence of coronary angioplasty implant and graft; Z96.659 Presence of unspecified artificial knee joint; Z86.711 Personal history of pulmonary embolism; Z90.710 Acquired absence of both cervix and uterus; Z88.5 Allergy status to narcotic agent; Z79.899 Other long term (current) drug therapy; Z96.643 Presence of artificial hip joint, bilateral; Z90.89 Acquired absence of other organs; Z90.49 Acquired absence of other specified parts of digestive tract; Z88.8 Allergy status to other drugs, medicaments and biological substances; Z86.73 Personal history of transient ischemic attack (TIA), and cerebral infarction without residual deficits
CPT/HCPCS: 99214; G0463

== ENCOUNTER → 2018-06-10 | Outpatient (CLI) | payer OTHER ==
[2018-05-28 07:00] VITALS: BP 101/59
== END | disposition home or self-care (01) ==
LOC: PMGWOUND 11:09
PROVIDERS: ATTEND Preventive Medicine Undersea and Hyperbaric Medicine
DX: L89.219 Pressure ulcer of right hip, unspecified stage (principal); L89.899 Pressure ulcer of other site, unspecified stage; I11.0 Hypertensive heart disease with heart failure; I50.9 Heart failure, unspecified; E03.9 Hypothyroidism, unspecified; F41.9 Anxiety disorder, unspecified; M86.9 Osteomyelitis, unspecified; I48.0 Paroxysmal atrial fibrillation; E78.2 Mixed hyperlipidemia; I25.2 Old myocardial infarction; G89.29 Other chronic pain; G62.9 Polyneuropathy, unspecified; M19.90 Unspecified osteoarthritis, unspecified site; I87.2 Venous insufficiency (chronic) (peripheral); J44.9 Chronic obstructive pulmonary disease, unspecified; F32.9 Major depressive disorder, single episode, unspecified; G40.909 Epilepsy, unspecified, not intractable, without status epilepticus; K21.9 Gastro-esophageal reflux disease without esophagitis; I25.10 Atherosclerotic heart disease of native coronary artery without angina pectoris; F17.200 Nicotine dependence, unspecified, uncomplicated; Z79.899 Other long term (current) drug therapy; Z86.711 Personal history of pulmonary embolism; Z96.643 Presence of artificial hip joint, bilateral; Z90.89 Acquired absence of other organs; Z90.710 Acquired absence of both cervix and uterus; Z90.49 Acquired absence of other specified parts of digestive tract; Z88.5 Allergy status to narcotic agent; Z88.8 Allergy status to other drugs, medicaments and biological substances; Z86.73 Personal history of transient ischemic attack (TIA), and cerebral infarction without residual deficits
CPT/HCPCS: 99213; G0463

== ENCOUNTER → 2018-07-01 | Outpatient (CLI) | payer OTHER ==
--- NOTE | 2018-07-01 11:59 | CARD ---
MR#: [id number] Date of Study: 07/01/2018 Ordering Physician: PACO QUIGLEY, Referring Physician: PACO QUIGLEY, Tech: Saskia Doshi APPROVED REPORT EXAM: Two-dimensional and M-mode echocardiogram with Doppler and color Doppler. Other Information Quality : AverageHR: 85bpm INDICATION COPD Atrial Fibrillation RISK FACTORS Hyperlipidemia Smoking 2D DIMENSIONS Left Atrium(2D)2.9 (1.6-4.0cm)IVSd1.0 (0.7-1.1cm) Aortic Root(2D)2.8 (2.0-3.7cm)LVDd3.3 (3.9-5.9cm) LVOT Diameter2.1 (1.8-2.4cm)PWd0.9 (0.7-1.1cm) LVDs2.5 (2.5-4.0cm)FS (%) 25.3 % SV23.3 mlLVEF(%)51.1 (>50%) Aortic Valve AoV Peak Heath.92.0cm/sAoV VTI18.3cm AO Peak GR.3.4mmHgLVOT Peak Heath.83.4cm/s AO Mean GR.2mmHgAVA (VMAX)3.19cm2 Mitral Valve MV E Ptmovccg24.7cm/sMV DECEL UZFC013ac MV A Tnqznftl47.0cm/sE/A Ratio0.6 Pulmonary Valve PV Peak Qhhqqqnk09.3cm/s Tricuspid Valve TR P. Lamopadl114ef/sRAP HXLMMXWE6ynKl TR Peak Gr.16ehAnIFRE65ydBr Pulmonary Vein S1 Qayvpezb74.6cm/sD2 Lffwbxxd03.1cm/s PVa lffugeod863tduv LEFT VENTRICLE The left ventricle is normal size. There is borderline concentric left ventricular hypertrophy. The l eft ventricular systolic function is normal. The Ejection Fraction is 50-55%. normal. There is normal LV segmental wall motion. Transmitral Doppler flow pattern is Grade I-abnormal relaxation pattern. RIGHT VENTRICLE The right ventricle is normal size. The right ventricle is mildly to moderately hypertrophied. The ri ght ventricular systolic function is normal. ATRIA The left atrium size is normal. The right atrium size is normal. The interatrial septum is intact wit h no evidence for an atrial septal defect or patent foramen ovale as noted on 2-D or Doppler imaging. AORTIC VALVE The aortic valve is normal in structure and function. Doppler and Color Flow revealed no significant aortic regurgitation. There is no significant aortic valvular stenosis. MITRAL VALVE The mitral valve is normal in structure and function. There is no evidence of mitral valve prolapse. There is no mitral valve stenosis. Doppler and Color Flow revealed no mitral valve regurgitation note d. TRICUSPID VALVE The tricuspid valve is normal in structure and function. Doppler and Color Flow revealed no tricuspid valve regurgitation noted. There is no tricuspid valve stenosis. PULMONIC VALVE The pulmonic valve is not well visualized. Doppler and Color Flow revealed no pulmonic valvular regur gitation. GREAT VESSELS The aortic root is normal in size. The IVC is normal in size and collapses >50% with inspiration. PERICARDIAL EFFUSION There is no evidence of significant pericardial effusion. Critical Notification Critical Value: No <Conclusion> The left ventricular systolic function is normal. The Ejection Fraction is 50-55%. normal. There is normal LV segmental wall motion. The right ventricle is mildly to moderately hypertrophied. Signed by : Joshua Allen, Electronically Approved : 07/01/2018 11:58:16
== END | disposition home or self-care (01) ==
LOC: ECHO 10:22
PROVIDERS: ATTEND Internal Medicine Cardiovascular Disease
DX: I51.7 Cardiomegaly (principal); I48.0 Paroxysmal atrial fibrillation; J44.9 Chronic obstructive pulmonary disease, unspecified; E78.5 Hyperlipidemia, unspecified; F17.200 Nicotine dependence, unspecified, uncomplicated
CPT/HCPCS: 93306

== ENCOUNTER 2018-09-05 15:12 | Emergency (ER) | payer OTHER ==
[~2018-09-05] VITALS: Ht 177.8 cm; Wt 88.5 kg
[~2018-09-05 15:12] MED LIST changes: +LIDO700A21 TP; -LIDO700A39 TP
[2018-09-05 15:20] VITALS: BP 136/72
[2018-09-05] MEDS ORDERED: IV NORMAL SALINE 1000ML BAG 1,000 ML IV SCH (17:01)
[2018-09-05 17:53] LABS: BASO % 1 % (0-3); EOS # 0.1 x10^3/uL (0.0-0.7); EOS % 1 % (0-3); HEMOGLOBIN 11.4 g/dL (12.0-15.5); LYMPH # 2.2 x10^3/uL (1.0-4.8); LYMPH % 32 % (24-48); MEAN CORPUSCULAR HEMOGLOBIN 32 pg (25-35); MEAN CORPUSCULAR HGB CONC 35 g/dL (31-37); MEAN CORPUSCULAR VOLUME 92 fL (79-100); MONO # 0.5 x10^3/uL (0.0-1.1); MONO % 7 % (0-9); NEUT # 4.2 x10^3uL (1.8-7.7); NEUT % 60 % (31-73); PLATELET COUNT 347 x10^3/uL (140-400); RED BLOOD COUNT 3.59 x10^6/uL (3.50-5.40); RED CELL DISTRIBUTION WIDTH 13.9 % (11.5-14.5); WHITE BLOOD COUNT 7.1 x10^3/uL (4.0-11.0)
[2018-09-05 18:02] LABS: CALCIUM 8.6 mg/dL (8.5-10.1); CREATININE 1.4 mg/dL (0.6-1.0); GFR 38.4; POTASSIUM 4.1 mmol/L (3.5-5.1)
[2018-09-05 18:08] LABS: ALBUMIN 3.8 g/dL (3.4-5.0); ALBUMIN/GLOBULIN RATIO 1.2 (1.0-1.7); MAGNESIUM 1.6 mg/dL (1.8-2.4); TOTAL BILIRUBIN 0.3 mg/dL (0.2-1.0); TOTAL PROTEIN 7.1 g/dL (6.4-8.2)
--- NOTE | 2018-09-05 18:11 | PHYS DOC ---
Past Medical History Past Medical History: CHF, COPD, CA, Stroke Additional Past Medical Histor: "C.diffRotted colon out.I have an ileostomy." (ROQUE ROSALES Jr. DO) Past Surgical History: Hip Replacement, Knee Replacement Additional Past Surgical Histo: Back SX, L ROTA, Cardiac stent,COLON\\RECTUM, BX KNEE, BX THUMB JOINT, R HIP (ROQUE ROSALES Jr. DO) Alcohol Use: None Drug Use: None (ROQUE ROSALES Jr. DO) Adult General Chief Complaint Chief Complaint: MUSCLE SPASM/CRAMP HPI HPI Patient is a 62-year-old female who presents with complaint of muscle cramps all over and thinks that her potassium is low. She also indicates that she thinks that she may be getting dehydrated, stating that she is feeling weakness and dizziness. She denies any chest pain or shortness of breath. She also denies any fever. Patient states that she takes a total of 240 mEQ of potassium daily. She states that she developed low potassium in the past due to having history of C. difficile colitis. She states that since that time she has had to have a partial colectomy and has a colostomy.[] (ROQUE ROSALES Jr. DO) Review of Systems Review of Systems Constitutional: Denies fever or chills [] Respiratory: Denies cough or shortness of breath [] Cardiovascular: No additional information not addressed in HPI [] GI: Denies abdominal pain, nausea, vomiting or diarrhea [] Musculoskeletal: Complains of diffuse body cramps/pain [] Integument: Denies rash or skin lesions [] Neurologic: Denies headache, focal weakness or sensory changes. Complains of dizziness. [] All other systems were reviewed and found to be within normal limits, except as documented in this note. (ROQUE ROSALES Jr. DO) Current Medications Current Medications Current Medications Medications (Trade) Dose Ordered Sig/Joel Start Time Stop Time Status Last Admin Dose Admin Acetaminophen/ Hydrocodone Bitart (Lortab 5/325) 2 tab 1X ONCE 09/05/18 18:30 09/05/18 18:31 DC 09/05/18 18:45 2 TAB Cephalexin HCl (Keflex) 500 mg 1X STAT 09/05/18 19:14 09/05/18 19:21 DC Magnesium Oxide (Magnesium Oxide) 400 mg 1X STAT 09/05/18 18:24 09/05/18 18:26 DC 09/05/18 18:44 400 MG Ondansetron HCl (Zofran Odt) 4 mg 1X ONCE 09/05/18 18:30 09/05/18 18:31 DC 09/05/18 18:45 4 MG Sodium Chloride 1,000 ml @ 1,000 mls/hr Q1H 09/05/18 17:01 09/05/18 18:00 DC 09/05/18 17:56 1,000 MLS/HR (EMELIA HUNT MD) Allergies Allergies Allergies Coded Allergies Type Severity Reaction Last Updated Verified apixaban Allergy Intermediate Swelling 05/17/18 Yes hydromorphone Allergy Intermediate 08/10/18 Yes phenytoin sodium Allergy Intermediate 05/17/18 Yes phenytoin sodium extended Allergy Intermediate 05/17/18 Yes I S O L A T I O N *CONTACT* Allergy Unknown 05/17/18 Yes doxycycline Adverse Reaction Intermediate GI UPSET 05/17/18 Yes pregabalin Adverse Reaction Intermediate NIGHTMARES 05/17/18 Yes (EMELIA HUNT MD) Physical Exam Physical Exam Constitutional: Well developed, well nourished, no acute distress, non-toxic appearance. [] HENT: Normocephalic, atraumatic, bilateral external ears normal, oropharynx moist, no oral exudates, nose normal. [] Eyes: PERRLA, EOMI, conjunctiva normal, no discharge. [] Neck: Normal range of motion, no tenderness, supple. [] Cardiovascular: Regular rate and rhythm[] Lungs & Thorax: Bilateral breath sounds clear to auscultation [] Abdomen: Bowel sounds normal, soft, no tenderness. [] Skin: Warm, dry, no erythema, no rash. [] Extremities: No tenderness, no cyanosis, no clubbing, ROM intact. [] Neurologic: Alert and oriented X 3, no focal deficits noted. [] (ROQUE ROSALES Jr. DO) Current Patient Data Vital Signs Vital Signs Date Time Temp Pulse Resp B/P (MAP) Pulse Ox O2 Delivery O2 Flow Rate FiO2 09/05/18 18:45 94 09/05/18 15:20 97.5 102 17 136/72 (93) Room Air 97.5 (EMELIA HUNT MD) Lab Values Laboratory Tests Test 09/05/18 17:40 09/05/18 18:25 White Blood Count 7.1 x10^3/uL (4.0-11.0) Red Blood Count 3.59 x10^6/uL (3.50-5.40) Hemoglobin 11.4 g/dL (12.0-15.5) L Hematocrit 33.0 % (36.0-47.0) L Mean Corpuscular Volume 92 fL (79-100) Mean Corpuscular Hemoglobin 32 pg (25-35) Mean Corpuscular Hemoglobin Concent 35 g/dL (31-37) Red Cell Distribution Width 13.9 % (11.5-14.5) Platelet Count 347 x10^3/uL (140-400) Neutrophils (%) (Auto) 60 % (31-73) Lymphocytes (%) (Auto) 32 % (24-48) Monocytes (%) (Auto) 7 % (0-9) Eosinophils (%) (Auto) 1 % (0-3) Basophils (%) (Auto) 1 % (0-3) Neutrophils # (Auto) 4.2 x10^3uL (1.8-7.7) Lymphocytes # (Auto) 2.2 x10^3/uL (1.0-4.8) Monocytes # (Auto) 0.5 x10^3/uL (0.0-1.1) Eosinophils # (Auto) 0.1 x10^3/uL (0.0-0.7) Basophils # (Auto) 0.0 x10^3/uL (0.0-0.2) Sodium Level 128 mmol/L (136-145) L Potassium Level 4.1 mmol/L (3.5-5.1) Chloride Level 94 mmol/L (98-107) L Carbon Dioxide Level 25 mmol/L (21-32) Anion Gap 9 (6-14) Blood Urea Nitrogen 20 mg/dL (7-20) Creatinine 1.4 mg/dL (0.6-1.0) H Estimated GFR (Cockcroft-Gault) 38.4 BUN/Creatinine Ratio 14 (6-20) Glucose Level 116 mg/dL (70-99) H Calcium Level 8.6 mg/dL (8.5-10.1) Magnesium Level 1.6 mg/dL (1.8-2.4) L Total Bilirubin 0.3 mg/dL (0.2-1.0) Aspartate Amino Transferase (AST) 29 U/L (15-37) Alanine Aminotransferase (ALT) 46 U/L (14-59) Alkaline Phosphatase 149 U/L (46-116) H Total Protein 7.1 g/dL (6.4-8.2) Albumin 3.8 g/dL (3.4-5.0) Albumin/Globulin Ratio 1.2 (1.0-1.7) Urine Collection Type Unknown Urine Color Yellow Urine Clarity Cloudy Urine pH 5.0 Urine Specific [place] <=1.005 Urine Protein Negative mg/dL (NEG-TRACE) Urine Glucose (UA) Negative mg/dL (NEG) Urine Ketones (Stick) Negative mg/dL (NEG) Urine Blood Trace (NEG) Urine Nitrite Negative (NEG) Urine Bilirubin Negative (NEG) Urine Urobilinogen Dipstick 0.2 mg/dL (0.2 mg/dL) Urine Leukocyte Esterase Large (NEG) Urine RBC 1-2 /HPF (0-2) Urine WBC 11-20 /HPF (0-4) Urine Squamous Epithelial Cells Few /LPF Urine Bacteria 0 /HPF (0-FEW) Urine Mucus Slight /LPF Laboratory Tests 09/05/18 17:40 Laboratory Tests 09/05/18 17:40 (EMELIA HUNT MD) EKG EKG [] (ROQUE ROSALES Jr., DO) Radiology/Procedures Radiology/Procedures [] (ROQUE ROSALES Jr., DO) Course & Med Decision Making Course & Med Decision Making Pertinent Labs and Imaging studies reviewed. (See chart for details) Patient moved to room upon arrival was evaluated by your medical staff after which blood work was drawn an IV was established. Patient given IV fluids. At this time, patient's workup is pending and patient is being signed out to oncoming ER physician, Dr. Hunt. (ROQUE ROSALES Jr., DO) Course & Med Decision Making labs look okay. mild hypoantremia and bump creatinine, pt is hydrated possible uti, just had a smith catheter afetr hip surgery. gave mag repletion as well. rx keflex, pt says she feels a little better (EMELIA HUNT MD) Dragon Disclaimer Dragon Disclaimer This electronic medical record was generated, in whole or in part, using a voice recognition dictation system. (ROQUE ROSALES Jr. DO) Departure Departure Impression: Primary Impression: UTI (urinary tract infection) Additional Impression: Hyponatremia Disposition: HOME, SELF-CARE Condition: STABLE Referrals: NICOLAS HICKS MD (PCP) Scripts Cephalexin (CEPHALEXIN) 500 Mg Capsule 1 CAP PO QID, #40 CAP Prov: EMELIA HUNT MD 09/05/18 Problem Qualifiers ROQUE ROSALES Jr., DO Sep 05, 2018 18:11 EMELIA HUNT MD Sep 05, 2018 19:43
[2018-09-05] MEDS ORDERED: MAGNESIUM OXIDE 400 MG TABLET PO STA (18:24)
[2018-09-05] MEDS ORDERED: ONDANSETRON ODT 4 MG TAB.RAPDIS. PO ONE (18:30)
[2018-09-05] MEDS ORDERED: HYDROcodone/APAP 5/325MG 1 TAB TABLET PO ONE (18:30)
[2018-09-05 18:40] LABS: BILIRUBIN,URINE NEGATIVE (NEG); CLARITY,URINE CLOUDY; COLOR,URINE YELLOW; NITRITE,URINE NEGATIVE (NEG); PROTEIN,URINE NEGATIVE (NEG-TRACE); UROBILINOGEN,URINE 0.2 mg/dL (0.2 mg/dL)
[2018-09-05 18:47] LABS: SQUAMOUS EPITHELIAL CELL,UR FEW /LPF
[2018-09-05 18:48] LABS: BACTERIA,URINE 0 /HPF (0-FEW)
[2018-09-05] MEDS ORDERED: CEPHALEXIN 250 MG CAPSULE. PO STA (19:14)
[2018-09-05] MEDS ORDERED: CEPH500C PO (19:16)
--- NOTE | 2018-09-06 03:48 | RAD ---
Chest radiograph 09/05/2018 12:00 AM INDICATION: Cough COMPARISON: None available TECHNIQUE: Portable upright frontal view of the chest is provided. FINDINGS: The cardiomediastinal silhouette is within normal limits. There are no pleural effusions. There is no pulmonary vascular congestion. There is no pneumothorax. The lungs are clear. No significant osseous abnormality is identified. Rotator cuff anchors noted in the left shoulder. IMPRESSION: No acute cardiopulmonary process. Electronically signed by: Tami Montgomery MD (09/06/2018 3:45 AM) [facility]
== END 2018-09-05 19:52 | disposition home or self-care (01) ==
LOC: ER 15:12
DX: N39.0 Urinary tract infection, site not specified (principal); E87.1 Hypo-osmolality and hyponatremia; R42 Dizziness and giddiness; J44.9 Chronic obstructive pulmonary disease, unspecified; I25.2 Old myocardial infarction; Z86.73 Personal history of transient ischemic attack (TIA), and cerebral infarction without residual deficits; Z86.79 Personal history of other diseases of the circulatory system; Z93.2 Ileostomy status; Z91.041 Radiographic dye allergy status; Z88.1 Allergy status to other antibiotic agents; Z88.5 Allergy status to narcotic agent; Z88.8 Allergy status to other drugs, medicaments and biological substances
CPT/HCPCS: 36415; 71045; 80053; 81001; 83735; 85025; 87086; 96360; 96361; 99285; J7030; Q0162

== ENCOUNTER 2018-10-03 13:39 | Inpatient (IN) | payer OTHER ==
[~2018-10-03] VITALS: Ht 174 cm; Wt 108.4 kg
[2018-10-03] VITALS (8 sets, daily range): BP systolic 83–105; BP diastolic 48–63
[~2018-10-03 13:39] MED LIST changes: +CEPH500C PO
[2018-10-03 14:30] LABS: BASO % 0 % (0-3); EOS % 0 % (0-3); HEMATOCRIT 35.2 % (36.0-47.0); HEMOGLOBIN 12.1 g/dL (12.0-15.5); LYMPH # 1.3 x10^3/uL (1.0-4.8); LYMPH % 9 % (24-48); MEAN CORPUSCULAR HEMOGLOBIN 32 pg (25-35); MEAN CORPUSCULAR HGB CONC 34 g/dL (31-37); MEAN CORPUSCULAR VOLUME 92 fL (79-100); MONO # 0.3 x10^3/uL (0.0-1.1); MONO % 2 % (0-9); NEUT # 12.3 x10^3/uL (1.8-7.7); NEUT % 88 % (31-73); PLATELET COUNT 404 x10^3/uL (140-400); RED BLOOD COUNT 3.84 x10^6/uL (3.50-5.40); RED CELL DISTRIBUTION WIDTH 13.9 % (11.5-14.5); WHITE BLOOD COUNT 13.9 x10^3/uL (4.0-11.0)
[2018-10-03 14:31] LABS: BILIRUBIN,URINE NEGATIVE (NEG); CLARITY,URINE CLEAR; COLOR,URINE YELLOW; NITRITE,URINE POSITIVE (NEG); PROTEIN,URINE NEGATIVE (NEG-TRACE); UROBILINOGEN,URINE 0.2 mg/dL (0.2 mg/dL)
[2018-10-03 14:40] LABS: CALCIUM 9.4 mg/dL (8.5-10.1); CREATININE 1.3 mg/dL (0.6-1.0); GFR 41.8; POTASSIUM 4.3 mmol/L (3.5-5.1); PROTHROMBIN TIME PATIENT 12.8 SEC (11.7-14.0)
[2018-10-03] MEDS ORDERED: IPRATRPIUM/ALBUTEROL 0.5/2.5MG 3 ML NEBU. NEB ONE (14:45)
[2018-10-03] MEDS ORDERED: methylPREDNISolone SOD SUCC PF 125 MG/2 ML VIAL. IV ONE (14:45)
[2018-10-03] MEDS ORDERED: IV NORMAL SALINE 1000ML BAG 1,000 ML IV ONE ×2 (14:45→15:15)
--- NOTE | 2018-10-03 14:50 | RAD ---
Indication: Sepsis, shortness of breath TECHNIQUE: Single AP view of the chest COMPARISON: 09/05/2018 FINDINGS: Patient is rotated to the right side limiting optimal evaluation. Heart is normal in size. Diffuse bilateral interstitial opacities are seen without focal consolidation. No pneumothorax or pleural effusion. Visualized bony thorax within normal limits. IMPRESSION: Diffuse bilateral mild interstitial opacities may be secondary to interstitial pulmonary edema or atypical/viral infection. Electronically signed by: Herb Lima DO (10/03/2018 2:47 PM) [facility]
[2018-10-03 14:53] LABS: ALBUMIN 3.2 g/dL (3.4-5.0); ALBUMIN/GLOBULIN RATIO 0.9 (1.0-1.7); TOTAL BILIRUBIN 0.6 mg/dL (0.2-1.0); TOTAL PROTEIN 6.8 g/dL (6.4-8.2)
[2018-10-03] MEDS ORDERED: VANCOMYCIN 1GM IVPB FOR OMNI 250 ML IV ONE (15:15)
[2018-10-03 15:21] LABS: RBC,URINE 0 /HPF (0-2)
[2018-10-03 15:22] LABS: BACTERIA,URINE MANY /HPF (0-FEW); WBC,URINE TNTC /HPF (0-4)
[2018-10-03] MEDS ORDERED: PIPERACILLIN/TAZOBACTAM 3.375 GM in IV NORMAL SALINE 50ML 50 ML IV ONE (15:30)
[2018-10-03 15:45] LABS: BASE EXCESS ABG -4 mmol/L (-3-3); HCO3 ABG 20 mmol/L (21-28); PCO2 ABG 32 mmHg (35-46); PO2 ABG 56 mmHg (65-108); SAT O2 ABG 90 % (92-99)
[2018-10-03 15:48] LABS: FIO2 ABG 36
[2018-10-03] MEDS ORDERED: VANCOMYCIN 2 GM in IV NORMAL SALINE 500ML BAG 500 ML IV ONE (16:00)
--- NOTE | 2018-10-03 16:11 | PHYS DOC ---
Past Medical History Past Medical History: CHF, COPD, [place], Stroke Additional Past Medical Histor: "C.diffRotted colon out.I have an ileostomy.",R HIP DISLOCATIONS Past Surgical History: Hip Replacement, Knee Replacement Additional Past Surgical Histo: Back SX, L ROTA, Cardiac stent,COLON\\RECTUM, BX KNEE, BX THUMB JOINT, R HIP Additional Information: 1 TO 2 CIGARETTES A DAY Alcohol Use: None Drug Use: None Adult General Chief Complaint Chief Complaint: CHEST PAIN HPI HPI Patient is a 62 year old 62 who brought in by EMS because of chest pain. 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 Patient is alert and oriented and looks very weak and gives history with a soft voice. EMS reported patient had temperature of 102. Patient had temperature of 99.5 orally in several times checking in ER. Review of Systems Review of Systems Constitutional: Reports fever and chills Eyes: Denies change in visual acuity, redness, or eye pain [] HENT: Denies nasal congestion or sore throat [] Respiratory: Cough and shortness of Cardiovascular: No additional information not addressed in HPI [] GI: Denies abdominal pain, vomiting, bloody stools or diarrhea [] : Denies dysuria or hematuria [] Musculoskeletal: Denies back pain or joint pain [] Integument: Denies rash or skin lesions [] Neurologic: Denies headache, focal weakness or sensory changes [] Endocrine: Denies polyuria or polydipsia [] All other systems were reviewed and found to be within normal limits, except as documented in this note. Current Medications Current Medications Current Medications Medications (Trade) Dose Ordered Sig/Joel Start Time Stop Time Status Last Admin Dose Admin Albuterol/ Ipratropium (Duoneb) 3 ml 1X ONCE 10/03/18 14:45 10/03/18 14:46 DC 10/03/18 14:52 3 ML Methylprednisolone Sodium Succinate (SOLU-Medrol 125MG VIAL) 125 mg 1X ONCE 10/03/18 14:45 10/03/18 14:46 DC 10/03/18 15:16 125 MG Sodium Chloride 1,000 ml @ 1,000 mls/hr 1X ONCE 10/03/18 14:45 10/03/18 15:44 DC 10/03/18 14:40 1,000 MLS/HR Allergies Allergies Allergies Coded Allergies Type Severity Reaction Last Updated Verified apixaban Allergy Intermediate Swelling 05/17/18 Yes hydromorphone Allergy Intermediate 08/10/18 Yes phenytoin sodium Allergy Intermediate 05/17/18 Yes phenytoin sodium extended Allergy Intermediate 05/17/18 Yes I S O L A T I O N *CONTACT* Allergy Unknown 05/17/18 Yes doxycycline Adverse Reaction Intermediate GI UPSET 05/17/18 Yes pregabalin Adverse Reaction Intermediate NIGHTMARES 05/17/18 Yes Physical Exam Physical Exam Constitutional: Moderate distress, non-toxic appearance, ill looking. [] HENT: Normocephalic, atraumatic, , oropharynx dry, no oral exudates, nose normal. [] Eyes: PERRLA, EOMI, conjunctiva normal, no discharge. [] Neck: Normal range of motion, no tenderness, supple, no stridor. [] Cardiovascular: Tachycardia, no murmur [] Lungs & Thorax: Marked respiratory distress with audible rhonchi and wheezing and lots of respiratory secretion.] Abdomen: Bowel sounds normal, soft, no tenderness, no masses, no pulsatile masses, right ileostomy in place. [] Skin: Warm, dry, no erythema, no rash. [] Back: No tenderness, no CVA tenderness. [] Extremities: No tenderness, no cyanosis, no clubbing, ROM intact, no edema. [] Neurologic: Alert and oriented X 3, normal motor function, normal sensory function, no focal deficits noted. [] Current Patient Data Vital Signs Vital Signs Date Time Temp Pulse Resp B/P (MAP) Pulse Ox O2 Delivery O2 Flow Rate FiO2 10/03/18 13:39 99.2 112 28 109/64 (79) 92 Nasal Cannula 4.0 99.2 Lab Values Laboratory Tests Test 10/03/18 13:47 10/03/18 13:59 10/03/18 14:20 Urine Collection Type Unknown Urine Color Yellow Urine Clarity Clear Urine pH 6.0 Urine Specific [place] 1.020 Urine Protein Negative mg/dL (NEG-TRACE) Urine Glucose (UA) Negative mg/dL (NEG) Urine Ketones (Stick) Negative mg/dL (NEG) Urine Blood Moderate (NEG) Urine Nitrite Positive (NEG) Urine Bilirubin Negative (NEG) Urine Urobilinogen Dipstick 0.2 mg/dL (0.2 mg/dL) Urine Leukocyte Esterase Large (NEG) Urine RBC 0 /HPF (0-2) Urine WBC Tntc /HPF (0-4) Urine Bacteria Many /HPF (0-FEW) O2 Saturation 90 % (92-99) L Arterial Blood pH 7.42 (7.35-7.45) Arterial Blood pCO2 at Patient Temp 32 mmHg (35-46) L Arterial Blood pO2 at Patient Temp 56 mmHg (65-108) L Arterial Blood HCO3 20 mmol/L (21-28) L Arterial Blood Base Excess -4 mmol/L (-3-3) L FiO2 36 White Blood Count 13.9 x10^3/uL (4.0-11.0) H Red Blood Count 3.84 x10^6/uL (3.50-5.40) Hemoglobin 12.1 g/dL (12.0-15.5) Hematocrit 35.2 % (36.0-47.0) L Mean Corpuscular Volume 92 fL (79-100) Mean Corpuscular Hemoglobin 32 pg (25-35) Mean Corpuscular Hemoglobin Concent 34 g/dL (31-37) Red Cell Distribution Width 13.9 % (11.5-14.5) Platelet Count 404 x10^3/uL (140-400) H Neutrophils (%) (Auto) 88 % (31-73) H Lymphocytes (%) (Auto) 9 % (24-48) L Monocytes (%) (Auto) 2 % (0-9) Eosinophils (%) (Auto) 0 % (0-3) Basophils (%) (Auto) 0 % (0-3) Neutrophils # (Auto) 12.3 x10^3/uL (1.8-7.7) H Lymphocytes # (Auto) 1.3 x10^3/uL (1.0-4.8) Monocytes # (Auto) 0.3 x10^3/uL (0.0-1.1) Eosinophils # (Auto) 0.0 x10^3/uL (0.0-0.7) Basophils # (Auto) 0.0 x10^3/uL (0.0-0.2) Segmented Neutrophils % 44 % (35-66) Band Neutrophils % 46 % (0-9) H Lymphocytes % 8 % (24-48) L Monocytes % 1 % (0-10) Basophils % 1 % (0-3) Platelet Estimate Increased (ADEQUATE) Prothrombin Time 12.8 SEC (11.7-14.0) Prothrombin Time INR 1.0 (0.8-1.1) Sodium Level 123 mmol/L (136-145) L Potassium Level 4.3 mmol/L (3.5-5.1) Chloride Level 90 mmol/L (98-107) L Carbon Dioxide Level 21 mmol/L (21-32) Anion Gap 12 (6-14) Blood Urea Nitrogen 9 mg/dL (7-20) Creatinine 1.3 mg/dL (0.6-1.0) H Estimated GFR (Cockcroft-Gault) 41.8 BUN/Creatinine Ratio 7 (6-20) Glucose Level 111 mg/dL (70-99) H Lactic Acid Level 2.4 mmol/L (0.4-2.0) H Calcium Level 9.4 mg/dL (8.5-10.1) Total Bilirubin 0.6 mg/dL (0.2-1.0) Aspartate Amino Transferase (AST) 22 U/L (15-37) Alanine Aminotransferase (ALT) 24 U/L (14-59) Alkaline Phosphatase 115 U/L (46-116) Creatine Kinase 175 U/L (26-192) Troponin I Quantitative < 0.017 ng/mL (0.000-0.055) VI-Lqo-J-Type Natriuretic Peptide 1562 pg/mL (0-124) H Total Protein 6.8 g/dL (6.4-8.2) Albumin 3.2 g/dL (3.4-5.0) L Albumin/Globulin Ratio 0.9 (1.0-1.7) L Lipase 71 U/L (73-393) L Laboratory Tests 10/03/18 14:20 Laboratory Tests 10/03/18 14:20 EKG EKG EKG interpreted by me. EKG at 1345 showed sinus tachycardia at rate of 111, nonspecific T abnormality. No acute ST and T-wave abnormalities. Radiology/Procedures Radiology/Procedures [][facility] [address] [place] [address] IMAGING REPORT Signed PATIENT: BELLA ROACH ACCOUNT: [id number] : 1955 LOCATION: ER AGE: 62 SEX: F EXAM STATUS: PRE ER ORD. PHYSICIAN: KEV TIRADO MD REASON: sepsis. soa PROCEDURE: PORTABLE CHEST 1V Indication: Sepsis, shortness of breath TECHNIQUE: Single AP view of the chest COMPARISON: 09/05/2018 FINDINGS: Patient is rotated to the right side limiting optimal evaluation. Heart is normal in size. Diffuse bilateral interstitial opacities are seen without focal consolidation. No pneumothorax or pleural effusion. Visualized bony thorax within normal limits. IMPRESSION: Diffuse bilateral mild interstitial opacities may be secondary to interstitial pulmonary edema or atypical/viral infection. Electronically signed by: Herb Lima DO (10/03/2018 2:47 PM) [facility] DICTATED and SIGNED BY: HERB LIMA DO DATE: 10/03/18 1440 Course & Med Decision Making Course & Med Decision Making Pertinent Labs and Imaging studies reviewed. (See chart for details) Dilution of patient in ER showed 62-year-old female patient with indwelling Drummond catheter and sent treatment Bactrim for UTI but in by EMS fever and respiratory distress and tachycardia. Sepsis evaluation and treatment was started patient treated with IV fluid and antibiotic. Patient was started on oxygen and after ABG ventori mask was recommended. Patient had blood pressure of 100 100s and 90s and high 80s. He lactic acid was 2.4. Patient had 46% bandemia. Patient requiring admission for further evaluation and treatment. Discussed with Dr. Downey who is in agreement with admission. Discussed findings and plan with patient and family, who acknowledge understanding and agreement. Dragon Disclaimer Dragon Disclaimer This electronic medical record was generated, in whole or in part, using a voice recognition dictation system. Departure Departure Impression: Primary Impression: Sepsis Additional Impressions: Hyponatremia Hypoxia UTI (urinary tract infection) due to urinary indwelling Drummond catheter Renal insufficiency HCAP (healthcare-associated pneumonia) Bandemia Disposition: ADMITTED INPATIENT (at 1556) Admitting Physician: Navya Downey (accepted admission at 1556) Condition: GUARDED Referrals: NICOLAS HICKS MD (PCP) Date and Time of Reassessment Date: Nov 19, 2014 Time: 15:55 Fluid Challenge Is the fluid challenge complet: Yes IBW Target Volume Used: Yes BMI > 30: Yes Vital Signs Vital Signs: Vital Signs Date Time Temp Pulse Resp B/P (MAP) Pulse Ox O2 Delivery O2 Flow Rate FiO2 10/03/18 13:39 99.2 112 28 109/64 (79) 92 Nasal Cannula 4.0 99.2 Temperature Source: Oral Cardiovascular Pulse Rhythm: Regular Heart: No rubs, clicks or gallop Lung Sounds Breath Sounds: Clear Capillary Refil Capillary Refill: Rt Hand > 3 seconds Peripheral Pulse Pulse Location: Radial Pulse Strength: Normal (2+) Pulse Assessment Method: NIBP Integumentary Skin Moisture: Dry Critical Care Time Critical care time was 90 minutes exclusive of procedures. Problem Qualifiers Primary Impression: Sepsis Sepsis type: sepsis due to unspecified organism Qualified Codes: A41.9 - Sepsis, unspecified organism Additional Impressions: UTI (urinary tract infection) due to urinary indwelling Drummond catheter Indwelling urinary catheter type: indwelling urethral catheter Encounter type: subsequent encounter Qualified Codes: T83.511D - Infection and inflammatory reaction due to indwelling urethral catheter, subsequent encounter; N39.0 - Urinary tract infection, site not specified KEV TIRADO MD Oct 03, 2018 16:11
[2018-10-03] MEDS ORDERED: LIDOCAINE (700MG/PATCH) PATCH. TP PRN (16:15)
[2018-10-03] MEDS ORDERED: ALBUTEROL SULFATE 2.5 MG/3 ML NEBU. INH PRN (16:15)
[2018-10-03 16:28] LABS: % BANDS 46 % (0-9); % BASOS 1 % (0-3); % LYMPHS 8 % (24-48); % MONOS 1 % (0-10); % SEGS 44 % (35-66)
[2018-10-03 16:29] LABS: PLT ESTIMATE INCREASED (ADEQUATE)
[2018-10-03] MEDS: tiZANidine 4 MG TABLET. PO SCH ×2 (17:00→20:38)
[2018-10-03] MEDS: POTASSIUM CHLORIDE 20 MEQ TABLET.ER. PO SCH (17:00)
[2018-10-03] MEDS: OMEGA-3 FATTY ACIDS/FISH OIL 1,000 MG CAPSULE. PO SCH (17:00)
[2018-10-03] MEDS: ALPRAZolam 1 MG TABLET PO SCH ×2 (17:00→20:41)
[2018-10-03] MEDS: MAGNESIUM OXIDE 400 MG TABLET PO SCH ×2 (17:00→20:39)
[2018-10-03] MEDS ORDERED: NON FORMULARY ITEM (Albuterol Sulfate (Albuterol Sulfate Neb Soln) 1 VIAL) NEB SCH (17:00)
--- NOTE | 2018-10-03 17:00 | NUR ---
Pt arrived to ICU bed 111 with diagnosis of sepsis, pneumonia, and hyponatremia. Pt has smith in place from home. Removed smith and placed new smith catheter. Pt able to answer minimal questions. Pt lethargic at this time. wounds pictured and placed in chart. Pt has ostomy.Pt on Venti mask per ER Dr. Pcae infusing at this time. consults called to ID, Cardiology, and Pulmonology at this time. Pt denies pain at this time. Will continue to monitor.
[2018-10-03] MEDS: IV NORMAL SALINE 1000ML BAG 1,000 ML IV SCH ×2 (17:45→23:10)
--- NOTE | 2018-10-03 17:50 | NUR ---
Patient arrived to ICU with Drummond catheter in place from home. Patient is septic and output from Drummond is suspected. Drummond removed and new Drummond placed using sterile technique by LIANNE Bentley Addendum: 10/03/18 at 1751 by KARYN OSEGUERA RN Amended: Links added.
--- NOTE | 2018-10-03 18:11 | EKG ---
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
[2018-10-03] MEDS: ENOXAPARIN 40 MG/0.4 ML SYRINGE. SQ SCH (19:03)
[2018-10-03] MEDS: ALBUTEROL SULFATE 2.5 MG/3 ML NEBU. NEB SCH (19:55)
[2018-10-03] MEDS: BUDESONIDE 0.5 MG/2 ML NEBU. NEB SCH (19:55)
[2018-10-03] MEDS ORDERED: traMADol 50 MG TABLET PO PRN (20:30)
[2018-10-03] MEDS: GABAPENTIN 300 MG CAPSULE. PO SCH (20:38)
[2018-10-03] MEDS: busPIRone 10 MG TABLET. PO SCH (20:39)
[2018-10-03] MEDS: MIRTAZAPINE 15 MG TAB.RAPDIS PO SCH (20:39)
[2018-10-03] MEDS: OLANZapine 5 MG TABLET PO SCH (20:40)
[2018-10-03] MEDS: ATORVASTATIN CALCIUM 20 MG TABLET PO SCH (20:41)
[2018-10-03] MEDS: fentaNYL PF VIAL 100 MCG/2 ML VIAL IV PRN (22:29)
[2018-10-04] VITALS (14 sets, daily range): BP systolic 87–110; BP diastolic 51–63
[2018-10-04] MEDS: fentaNYL PF VIAL 100 MCG/2 ML VIAL IV PRN ×2 (03:37→07:39)
[2018-10-04] MEDS: IV NORMAL SALINE 1000ML BAG 1,000 ML IV SCH (05:53)
[2018-10-04] MEDS: LEVOTHYROXINE 150 MCG TABLET PO SCH (05:54)
[2018-10-04] MEDS: PANTOPRAZOLE 40 MG TABLET.DR. PO SCH (07:38)
[2018-10-04] MEDS: POTASSIUM CHLORIDE 20 MEQ TABLET.ER. PO SCH ×3 (08:00→17:40)
[2018-10-04] MEDS: ASPIRIN 325 MG TABLET PO SCH (08:01)
[2018-10-04] MEDS: OMEGA-3 FATTY ACIDS/FISH OIL 1,000 MG CAPSULE. PO SCH (08:02)
[2018-10-04] MEDS: FUROSEMIDE 40 MG TABLET. PO SCH (08:02)
[2018-10-04] MEDS: tiZANidine 4 MG TABLET. PO SCH ×4 (08:03→21:53)
[2018-10-04] MEDS: MAGNESIUM OXIDE 400 MG TABLET PO SCH ×4 (08:03→21:52)
[2018-10-04] MEDS: busPIRone 10 MG TABLET. PO SCH ×2 (08:03→21:51)
[2018-10-04] MEDS: ALPRAZolam 1 MG TABLET PO SCH ×4 (08:04→21:52)
[2018-10-04] MEDS: GABAPENTIN 300 MG CAPSULE. PO SCH ×3 (08:04→21:52)
[2018-10-04] MEDS: ALBUTEROL SULFATE 2.5 MG/3 ML NEBU. NEB SCH ×4 (08:04→18:02)
[2018-10-04] MEDS: BUDESONIDE 0.5 MG/2 ML NEBU. NEB SCH ×2 (08:04→18:02)
[2018-10-04] MEDS ORDERED: VANCOMYCIN 2 GM in IV NORMAL SALINE 500ML BAG 500 ML IV SCH (08:15)
[2018-10-04] MEDS ORDERED: VANCOMYCIN PER PHARMACY MC PRN (08:30)
--- NOTE | 2018-10-04 08:39 | NUR ---
Pharmacy Vancomycin Dosing Note S:Consulted to monitor and dose vancomycin started 10/03/18. O:BELLA ROACH is a 62 year old F with Pneumonia . Height: 5 feet, 9 inches Weight: 102.620501 kg Petty Body Weight: 66.20 Adjusted Body Weight: 80.52 Dosing Weight: Actual Other Antibiotics: ZOSYN LABS: Last BUN: 9 Last Creatinine: 1.3 Creatinine Clearance: 58 mL/min Last WBC: 13.9 Last Procalcitonin: Tmax (past 24 hours): 99.2 Microbiology: I/O: 3482/3420 Drug Levels: Last level: on at Last dose given 10/03/18 at 1530 Vancomycin Dosing: Loading Dose: 2000 mg x1 Dosing Weight: Actual Target Trough: 15-20 A: Based on: WEIGHT AND RENAL FUNCTION, VANCOMYCIN 2GM IVBOLUS GIVEN YESTERDAY; P: 1. Begin Vancomycin 1500 mg IV q24h TODAY AT 1530 2. Follow up Trough level on 10/05/18 at 1500 3. Pharmacy will continue to monitor, follow and adjust therapy as needed. SYED WHITE [facility], 10/04/18 [id number]
[2018-10-04] MEDS ORDERED: LACTOBACILLUS RHAMNOSUS GG 1 CAPSULE. PO SCH (09:00)
[2018-10-04] MEDS: FLUTICASONE 50MCG/NASAL SPRAY 16GM BOTTLE. NS SCH (09:00)
--- NOTE | 2018-10-04 09:03 | CONS ---
DATE OF CONSULTATION: PULMONARY CONSULTATION ATTENDING PHYSICIAN: Narda Leon MD HISTORY OF PRESENT ILLNESS: This is a 62-year-old female, who presented to the [facility] Emergency Room last evening by ambulance. The patient notes that she was feeling well until yesterday morning when she woke up with shaking chills and generalized pain throughout her body. By the time she presented, she was unable to provide much more history. The patient has a history of recurrent urinary tract infections. She has a long history of self-catheterization. She had an indwelling Drummond that was placed in recent months. She notes that she last had a urinary tract infection approximately 3 weeks ago. The patient denies any shortness of breath. She does note that she coughed up green sputum once in the ambulance, but did not do so before or after. She has not had any cough since that one episode. Also of note, the patient notes that she has been on prednisone intermittently in the past year. She does not remember why she was on prednisone. PAST MEDICAL HISTORY: Significant for a myocardial infarction and a stroke. She states she has had congestive heart failure in the past. She also has had a hip joint replacement and notes that her hip has had problems popping out of joint recently. She had C. difficile colitis in the past and now has an ileostomy. SOCIAL HISTORY: She lives at home. She notes that she is active. She smokes 1-2 cigarettes per day. REVIEW OF SYSTEMS: A 12-point review of systems was obtained and was otherwise negative, although the patient is unable to provide a detailed history. PHYSICAL EXAMINATION: GENERAL: Reveals a female on low-flow oxygen, at present is resting comfortably. VITAL SIGNS: Her blood pressure is 100/55. Her heart rate is 88. Her oxygen saturation is 94% on 2 liters of oxygen. Her respiratory rate is 16 per minute and nonlabored. I would note that earlier upon presentation, she was more hypotensive with a blood pressure of 83/50. HEENT: Exam is unremarkable. NECK: There is no JVD or lymphadenopathy. CHEST: She has equal, good breath sounds with a few bibasilar rales. There is no wheezing, rhonchi, or rubs. CARDIOVASCULAR: She has regular rate and rhythm without murmur or gallop. ABDOMEN: She has the ileostomy in place. Her abdomen is soft and nontender. EXTREMITIES: There is no cyanosis, clubbing, or edema. NEUROLOGIC: She is alert and oriented. She is unable to provide great details about her medical history. Her cranial nerves and motor are intact without any focal abnormalities. LABORATORY DATA: She had a chest x-ray that was done last night at [facility] that was remarkable for a mild bilateral interstitial infiltrate. She had a urinalysis that was essentially pyuria. On her CBC, she had a white count of 13,900, but most importantly, she had 46% bands on her white count. Her BMP was remarkable for a sodium of 123. Her bicarbonate was 21. Her creatinine was 1.3. Her lactic acid on admission was 2.4. Her troponin was low. IMPRESSION: 1. Septic shock secondary to urinary tract infection. 2. Acute lung injury secondary to septic shock. 3. Hyponatremia in a hypotensive, but otherwise clinically euvolemic patient. In addition to other possibilities, I would consider adrenal insufficiency and thyroid disease. PLAN: The patient was initially given vancomycin and Zosyn along with steroids in the Emergency Room. I believe those are very appropriate, and the patient appears to have responded. We will continue the vancomycin, Zosyn and steroids pending her culture results. I would adjust her steroids to provide her with hydrocortisone 100 mg every 8 hours, which is a dose appropriate for adrenal crisis. I will also check her thyroid level, although interpretation in a setting like this is sometimes difficult. Lastly, I am repeating her BMP to look at her sodium and we will adjust her fluids accordingly. Thank you for allowing us to participate in her care. If you have any questions, please do not hesitate to contact me. YESI ENRIQUE MD DR: DAHIANA/joshua JOB#: [id number] / [id number] Addendum: Return sodium was 132 which is increasing higher than optimal, therefore will switch IVF to hypotonic 1/2 NS and repeat BNP this afternoon. Also ID is now following and they agree with Zocyn and Vancomycin. I will leave further adjustments of antibiotics to that service. ICU time spent 45 minutes. MICHELLE
[2018-10-04] MEDS: HYDROCORTISONE SOD SUCC/PF 100 MG/2 ML VIAL. IV SCH ×3 (09:06→21:51)
[2018-10-04] MEDS: PIPERACILLIN/TAZOBACTAM 3.375 GM in IV NORMAL SALINE 50ML 50 ML IV SCH ×2 (09:07→17:44)
[2018-10-04 09:19] LABS: BASO % 0 % (0-3); EOS % 0 % (0-3); HEMATOCRIT 31.7 % (36.0-47.0); HEMOGLOBIN 10.5 g/dL (12.0-15.5); LYMPH # 1.3 x10^3/uL (1.0-4.8); LYMPH % 6 % (24-48); MEAN CORPUSCULAR HEMOGLOBIN 31 pg (25-35); MEAN CORPUSCULAR HGB CONC 33 g/dL (31-37); MEAN CORPUSCULAR VOLUME 94 fL (79-100); MONO # 0.3 x10^3/uL (0.0-1.1); MONO % 2 % (0-9); NEUT # 19.2 x10^3/uL (1.8-7.7); NEUT % 92 % (31-73); PLATELET COUNT 379 x10^3/uL (140-400); RED BLOOD COUNT 3.38 x10^6/uL (3.50-5.40); RED CELL DISTRIBUTION WIDTH 14.4 % (11.5-14.5); WHITE BLOOD COUNT 20.8 x10^3/uL (4.0-11.0)
[2018-10-04 09:20] LABS: CALCIUM 9.2 mg/dL (8.5-10.1); CREATININE 0.9 mg/dL (0.6-1.0); GFR 63.9; POTASSIUM 4.3 mmol/L (3.5-5.1)
--- NOTE | 2018-10-04 09:55 | PDOC ---
Infectious Disease Note Vital Sign Vital Signs Vital Signs Date Time Temp Pulse Resp B/P (MAP) Pulse Ox O2 Delivery O2 Flow Rate FiO2 10/04/18 08:09 21 96 Nasal Cannula 3.0 10/04/18 08:00 86 101/54 (70) 10/04/18 07:00 97.9 97.9 Labs Lab Laboratory Tests Test 10/03/18 13:47 10/03/18 13:59 10/03/18 14:20 10/03/18 19:00 Urine Collection Type Unknown Urine Color Yellow Urine Clarity Clear Urine pH 6.0 Urine Specific [place] 1.020 Urine Protein Negative mg/dL (NEG-TRACE) Urine Glucose (UA) Negative mg/dL (NEG) Urine Ketones (Stick) Negative mg/dL (NEG) Urine Blood Moderate (NEG) Urine Nitrite Positive (NEG) Urine Bilirubin Negative (NEG) Urine Urobilinogen Dipstick 0.2 mg/dL (0.2 mg/dL) Urine Leukocyte Esterase Large (NEG) Urine RBC 0 /HPF (0-2) Urine WBC Tntc /HPF (0-4) Urine Bacteria Many /HPF (0-FEW) O2 Saturation 90 % (92-99) Arterial Blood pH 7.42 (7.35-7.45) Arterial Blood pCO2 at Patient Temp 32 mmHg (35-46) Arterial Blood pO2 at Patient Temp 56 mmHg (65-108) Arterial Blood HCO3 20 mmol/L (21-28) Arterial Blood Base Excess -4 mmol/L (-3-3) FiO2 36 White Blood Count 13.9 x10^3/uL (4.0-11.0) Red Blood Count 3.84 x10^6/uL (3.50-5.40) Hemoglobin 12.1 g/dL (12.0-15.5) Hematocrit 35.2 % (36.0-47.0) Mean Corpuscular Volume 92 fL (79-100) Mean Corpuscular Hemoglobin 32 pg (25-35) Mean Corpuscular Hemoglobin Concent 34 g/dL (31-37) Red Cell Distribution Width 13.9 % (11.5-14.5) Platelet Count 404 x10^3/uL (140-400) Neutrophils (%) (Auto) 88 % (31-73) Lymphocytes (%) (Auto) 9 % (24-48) Monocytes (%) (Auto) 2 % (0-9) Eosinophils (%) (Auto) 0 % (0-3) Basophils (%) (Auto) 0 % (0-3) Neutrophils # (Auto) 12.3 x10^3/uL (1.8-7.7) Lymphocytes # (Auto) 1.3 x10^3/uL (1.0-4.8) Monocytes # (Auto) 0.3 x10^3/uL (0.0-1.1) Eosinophils # (Auto) 0.0 x10^3/uL (0.0-0.7) Basophils # (Auto) 0.0 x10^3/uL (0.0-0.2) Segmented Neutrophils % 44 % (35-66) Band Neutrophils % 46 % (0-9) Lymphocytes % 8 % (24-48) Monocytes % 1 % (0-10) Basophils % 1 % (0-3) Platelet Estimate Increased (ADEQUATE) Prothrombin Time 12.8 SEC (11.7-14.0) Prothromb Time International Ratio 1.0 (0.8-1.1) Sodium Level 123 mmol/L (136-145) Potassium Level 4.3 mmol/L (3.5-5.1) Chloride Level 90 mmol/L (98-107) Carbon Dioxide Level 21 mmol/L (21-32) Anion Gap 12 (6-14) Blood Urea Nitrogen 9 mg/dL (7-20) Creatinine 1.3 mg/dL (0.6-1.0) Estimated GFR (Cockcroft-Gault) 41.8 BUN/Creatinine Ratio 7 (6-20) Glucose Level 111 mg/dL (70-99) Lactic Acid Level 2.4 mmol/L (0.4-2.0) 1.4 mmol/L (0.4-2.0) Calcium Level 9.4 mg/dL (8.5-10.1) Total Bilirubin 0.6 mg/dL (0.2-1.0) Aspartate Amino Transf (AST/SGOT) 22 U/L (15-37) Alanine Aminotransferase (ALT/SGPT) 24 U/L (14-59) Alkaline Phosphatase 115 U/L (46-116) Creatine Kinase 175 U/L (26-192) Troponin I Quantitative < 0.017 ng/mL (0.000-0.055) BX-Wmm-L-Type Natriuretic Peptide 1562 pg/mL (0-124) Total Protein 6.8 g/dL (6.4-8.2) Albumin 3.2 g/dL (3.4-5.0) Albumin/Globulin Ratio 0.9 (1.0-1.7) Lipase 71 U/L (73-393) Objective Assessment Leukocytosis and bandemia. Now on steroids Chills and body aches -better Chronic indwelling Drummond, last changed 10/03. -Recent h/o recurrent UTI Tx cephalexin and then Bactrim -h/o MDR Serratia and E. coli (EDMOND-S) UTIs. COPD, O2 dependent 2 L baseline at night CAD h/o seizures h/o C. diff, MRSA Doxy allergy Plan Plan of Care Continue vanc and Zosyn for now as patient is clinically improving s/p steroids Edmond cultures pending will follow along Thank you [id number] Pt seen and examined Chart reviewed Labs and micro reviewed Case discussed D/W RN agree with above A/P RA LOUIS APRN Oct 04, 2018 09:55 JUDSON CANADA MD Oct 04, 2018 14:47
[2018-10-04] MEDS: IV 1/2 NORMAL SALINE 1,000 ML IV SCH ×2 (10:47→15:49)
--- NOTE | 2018-10-04 10:53 | CONS ---
DATE OF CONSULTATION: 10/04/2018 REFERRING PHYSICIAN: Dr. Downey. REASON FOR CONSULTATION: Sepsis. HISTORY OF PRESENT ILLNESS: This patient is a 62-year-old female with a history of coronary artery disease, COPD oxygen dependent on 2 liters at night, and chronic indwelling Drummond catheter due to a history of urinary retention, who was in her usual state of health when yesterday morning she woke up with severe chills, subjective fevers, and body aches. She did not self-treat as she thought she would feel better. However, as the day progressed, she felt worse and then developed some chest pain. She has a history of myocardial infarction and thought she was having a heart attack, prompting the EMS call. She says she has been having a little bit of chest congestion and phlegm production. She denies shortness of air. On arrival to the ER, she had an elevated WBC count of 13,900, segs 44%, bands 46%. Sodium 123 and lactic 2.4. Chest x-ray revealed diffuse bilateral mild interstitial opacities, may be secondary to interstitial pulmonary edema or atypical/viral infection. Edmond-cultures have been ordered. She was dosed with vancomycin and Zosyn in ER. ID has been asked to consult for further evaluation and antibiotic management. The patient says since arriving, she is feeling much better and more comfortable. She has remained afebrile here. Her chills and body aches have settled down. She reports some sinus drainage. Denies headache, confusion, or sore throat. Denies nausea, vomiting, or increased ostomy output. She normally self-catheterizes. 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 She was recently treated for urinary tract infection with negative culture in August with cephalexin and then again recently with Bactrim. PAST MEDICAL HISTORY: 1. History of Clostridium difficile infection. 2. Multidrug resistant Serratia marcescens and E. coli pansensitive urinary tract infection. 3. History of MRSA and Serratia respiratory infections. 4. Congestive heart failure, coronary artery disease, myocardial infarction, COPD oxygen dependent on 2 liters at night, stroke. 5. Hypothyroidism, anxiety, depression, chronic back pain, fibromyalgia. 6. History of seizures. 7. DVT. 8. Peripheral neuropathy. 9. Rheumatoid arthritis. PAST SURGICAL HISTORY: Exploratory laparotomy, extensive lysis of adhesions, ventral incisional hernia repair, ileostomy, total knee replacement, total right hip replacement, hysterectomy, cholecystectomy, sinus surgery, back surgery, coronary stent, bilateral thumb replacement, closed reduction right total hip arthroplasty for recurrent dislocation 05/2018. SOCIAL HISTORY: The patient lives at home. She smokes 1-2 cigarettes per day. FAMILY HISTORY: COPD and Catrachita Gehrig's disease. ALLERGIES: DOXYCYCLINE. MEDICATIONS: Vancomycin, Zosyn, steroids. Other medications are available and have been reviewed on the MAY. REVIEW OF SYSTEMS: As per HPI, otherwise all other review of systems are negative. PHYSICAL EXAMINATION: VITAL SIGNS: Temperature 97.9, blood pressure 101/54, heart rate 86, respiratory rate 21, pulse oximetry is 96% on 3 liters oxygen. GENERAL: The patient propped up in bed, resting quietly, arouses to name. No apparent distress. HEENT: Pupils equally round and reactive. Oropharynx pink and dry. Dentures in place. NECK: Supple. LUNGS: Rhonchi, nonlabored. HEART: S1, S2 regular. ABDOMEN: Obese, soft, and nontender with bowel sounds present. Ileostomy without signs of complications. GENITOURINARY: Indwelling Drummond in place (10/03). EXTREMITIES: No gross edema or cyanosis. SKIN: Warm without signs of rash. NEUROLOGIC: Arouses easily to name and answers questions appropriately. LABORATORY DATA: Today's WBC 20.8 from 13.9, hemoglobin 10.5, platelets 379,000. Creatinine 0.9, BUN 12, sodium 132 from 123, potassium 4.3. Lactic acid 1.4 from 2.4. Troponin less than 0.017. BNP 1562. Edmond-cultures pending. Chest x-ray per HPI. MRSA screen pending. IMPRESSION: 1. Leukocytosis and bandemia, now on steroids. 2. Chills and body aches. 3. Chronic indwelling Drummond with history of multidrug-resistant organism and recent treatment of recurrent urinary tract infection with reportedly Bactrim. 4. Chronic obstructive pulmonary disease, oxygen dependent. 5. Coronary artery disease. 6. History of seizures. 7. History of Clostridium difficile infection and methicillin-resistant Staphylococcus aureus. PLAN: Continue the vancomycin and Zosyn for now as the patient is clinically improving. Her WBC count has increased, likely reactive to steroids. We will follow up on culture results. We will continue to follow along. Thank you, Dr Downey for asking us to participate in this patient's care. Should you have further questions or concerns, please call. JUDSON CANADA MD DR: EAN/joshua JOB#: [id number] / [id number] MICHELLE
--- NOTE | 2018-10-04 12:13 | PDOC1 ---
History and Physical Date of Admission Date of Admission 10/04/18 Identification/Chief Complaint Chief Complaint chest pain, UTI Source Source: Caregiver, Chart review History of Present Illness History of Present Illness She presented to ER because of chest pain but was found to have sepsis and admitted into the ICU on sepsis protocol which she has responded to nicely. Source appears to be urinary. She has an indwelling Drummond catheter which was changed and noted to be very unclean. She has multiple medical issues including resistent urinary tract infections, recent hospitalization for a hip dislocation and recent Er visit for acute left sciatic back pain Past Medical History Cardiovascular: AFIB, CAD, HTN, Hyperlipidemia, Other Pulmonary: COPD CENTRAL NERVOUS SYSTEM: CVA GI: GERD, Other Heme/Onc: Anemia NOS Psych: Anxiety, Depression Infectious disease: No pertinent hx Endocrine: Hypothyroidism Past Surgical History Past Surgical History: Cholecystectomy, Hernia Repair, Total hip replacement, Total knee replacement, Hysterectomy, Colectomy, Colon Resection, Other Family History Family History: Stroke Family History: Parent (mother - heart disease, stroke. Father - , ALS. sister with diabetes) Social History Smoke: Quit (07/23/18) ALCOHOL: none Drugs: None Current Problem List Problem List Problems Medical Problems: (1) Bandemia Status: Acute (2) HCAP (healthcare-associated pneumonia) Status: Acute (3) Hypoxia Status: Acute (4) Renal insufficiency Status: Acute (5) Sepsis Status: Acute (6) UTI (urinary tract infection) due to urinary indwelling Drummond catheter Status: Acute Current Medications Current Medications Current Medications Medications (Trade) Dose Ordered Sig/Joel Start Time Stop Time Status Last Admin Dose Admin Albuterol Sulfate (Ventolin Neb Soln) 2.5 mg RTQID 10/03/18 20:00 10/04/18 08:04 2.5 MG Albuterol/ Ipratropium (Duoneb) 3 ml 1X ONCE 10/03/18 14:45 10/03/18 14:46 DC 10/03/18 14:52 3 ML Alprazolam (Xanax) 1 mg QID 10/03/18 17:00 10/04/18 08:04 1 MG Aspirin (Nader Aspirin) 325 mg DAILY 10/04/18 09:00 10/04/18 08:01 325 MG Atorvastatin Calcium (Lipitor) 40 mg HS 10/03/18 21:00 10/03/18 20:41 40 MG Budesonide (Pulmicort) 0.5 mg RTBID 10/03/18 20:00 10/04/18 08:04 0.5 MG Buspirone HCl (Buspar) 10 mg BID 10/03/18 21:00 10/04/18 08:03 10 MG Enoxaparin Sodium (Lovenox 40mg Syringe) 40 mg Q24H 10/03/18 17:00 10/03/18 19:03 40 MG Ergocalciferol (Vitamin D2) 50,000 unit WEEKLY 10/10/18 09:00 Fentanyl Citrate (Fentanyl 2ml Vial) 25 mcg PRN Q4HRS PRN 10/03/18 22:30 10/04/18 07:39 25 MCG Fish Oil (Fish Oil) 1,000 mg DAILY 10/03/18 17:00 10/04/18 08:02 1,000 MG Fluticasone Propionate (Flonase) 2 spray DAILY 10/04/18 09:00 10/04/18 09:00 2 SPRAY Furosemide (Lasix) 40 mg DAILY 10/04/18 09:00 10/04/18 08:02 40 MG Gabapentin (Neurontin) 600 mg TID 10/03/18 21:00 10/04/18 08:04 600 MG Hydrocortisone Sodium Succinate (Solu-CORTEF) 100 mg Q8HRS 10/04/18 08:30 10/04/18 09:06 100 MG Lactobacillus Rhamnosus (Culturelle) 1 cap BID 10/04/18 21:00 Levothyroxine Sodium (Synthroid) 150 mcg DAILY06 10/04/18 06:00 10/04/18 05:54 150 MCG Lidocaine (Lidoderm) 1 patch PRN Q12HRS PRN 10/03/18 16:15 Magnesium Oxide (Magnesium Oxide) 400 mg QID 10/03/18 17:00 10/04/18 08:03 400 MG Methylprednisolone Sodium Succinate (SOLU-Medrol 125MG VIAL) 125 mg 1X ONCE 10/03/18 14:45 10/03/18 14:46 DC 10/03/18 15:16 125 MG Mirtazapine (Remeron Frances-Tab) 30 mg QHS 10/03/18 21:00 10/03/18 20:39 30 MG Non-Formulary Medication (Albuterol Sulfate (Albuterol Sulfate Neb Soln)) 1 vial QID 10/03/18 17:00 UNV Olanzapine (ZyPREXA) 5 mg QHS 10/03/18 21:00 10/03/18 20:40 5 MG Pantoprazole Sodium (Protonix) 40 mg DAILYAC 10/04/18 07:30 10/04/18 07:38 40 MG Piperacillin Sod/ Tazobactam Sod 3.375 gm/Sodium Chloride 50 ml @ 100 mls/hr Q6HRS 10/04/18 09:00 10/04/18 09:07 100 MLS/HR Potassium Chloride (Klor-Con) 40 meq TIDWMEALS 10/03/18 17:00 10/04/18 08:00 40 MEQ Sodium Chloride 1,000 ml @ 150 mls/hr Q6H40M 10/04/18 10:45 10/04/18 10:47 150 MLS/HR Tizanidine HCl (Zanaflex) 4 mg QID 10/03/18 17:00 10/04/18 08:03 4 MG Tramadol HCl (Ultram) 50 mg PRN Q6HRS PRN 10/03/18 20:30 10/03/18 20:40 50 MG Vancomycin HCl (Vanco Per Pharmacy) 1 each PRN DAILY PRN 10/04/18 08:30 10/04/18 08:37 1 EACH Vancomycin HCl (Vancomycin Trough Level) 1 each 1X ONCE 10/05/18 15:00 10/05/18 15:01 Vancomycin HCl 1.5 gm/Sodium Chloride 500 ml @ 250 mls/hr Q24H 10/04/18 15:30 Vancomycin HCl 2 gm/Sodium Chloride 500 ml @ 250 mls/hr Q12H 10/04/18 08:15 UNV Allergies Allergies Allergies Coded Allergies Type Severity Reaction Last Updated Verified apixaban Allergy Intermediate Swelling 05/17/18 Yes hydromorphone Allergy Intermediate 08/10/18 Yes phenytoin sodium Allergy Intermediate 05/17/18 Yes phenytoin sodium extended Allergy Intermediate 05/17/18 Yes I S O L A T I O N *CONTACT* Allergy Unknown 05/17/18 Yes doxycycline Adverse Reaction Intermediate GI UPSET 05/17/18 Yes pregabalin Adverse Reaction Intermediate NIGHTMARES 05/17/18 Yes ROS Review of System CONSTITUTIONAL: No fever or chills EYES: No recent changes SKIN: No rash or itching CARDIOVASCULAR: + chest pain, no syncope, palpitations, or edema RESPIRATORY: + SOB or cough GASTROINTESTINAL: No nausea, vomiting or abdominal pain, ileostomy present NEUROLOGICAL: No headaches or weakness ENDOCRINE: No cold or heat intolerance GENITOURINARY: indwelling Drummond MUSCULOSKELETAL: + back pain, hx multiple joint replacements LYMPHATICS: No enlarged lymph nodes PSYCHIATRIC: + anxiety or depression, released from [facility] earlier this year Physical Exam Physical Exam GEN.: No apparent distress after recent Fentanyl injection, she has been alert and oriented. HEENT: Head is normocephalic, atraumatic NECK: Supple. LUNGS: Coarse breath sounds. HEART: RRR, S1, S2 present. Peripheral pulses intact ABDOMEN: Soft, nontender. Positive bowel sounds. Ostomy present and intact EXTREMITIES: Without any cyanosis, clubbing or edema. NEUROLOGIC: Normal speech, normal tone PSYCHIATRIC: Normal affect, normal mood. SKIN: No ulcerations Vitals Vitals Vital Signs Date Time Temp Pulse Resp B/P (MAP) Pulse Ox O2 Delivery O2 Flow Rate FiO2 10/04/18 11:00 79 16 99/54 (69) 95 Nasal Cannula 2.0 10/04/18 07:00 97.9 97.9 Labs Labs Laboratory Tests Test 10/03/18 13:47 10/03/18 13:59 10/03/18 14:20 10/03/18 19:00 Urine Collection Type Unknown Urine Color Yellow Urine Clarity Clear Urine pH 6.0 Urine Specific [place] 1.020 Urine Protein Negative mg/dL (NEG-TRACE) Urine Glucose (UA) Negative mg/dL (NEG) Urine Ketones (Stick) Negative mg/dL (NEG) Urine Blood Moderate (NEG) Urine Nitrite Positive (NEG) Urine Bilirubin Negative (NEG) Urine Urobilinogen Dipstick 0.2 mg/dL (0.2 mg/dL) Urine Leukocyte Esterase Large (NEG) Urine RBC 0 /HPF (0-2) Urine WBC Tntc /HPF (0-4) Urine Bacteria Many /HPF (0-FEW) O2 Saturation 90 % (92-99) Arterial Blood pH 7.42 (7.35-7.45) Arterial Blood pCO2 at Patient Temp 32 mmHg (35-46) Arterial Blood pO2 at Patient Temp 56 mmHg (65-108) Arterial Blood HCO3 20 mmol/L (21-28) Arterial Blood Base Excess -4 mmol/L (-3-3) FiO2 36 White Blood Count 13.9 x10^3/uL (4.0-11.0) Red Blood Count 3.84 x10^6/uL (3.50-5.40) Hemoglobin 12.1 g/dL (12.0-15.5) Hematocrit 35.2 % (36.0-47.0) Mean Corpuscular Volume 92 fL (79-100) Mean Corpuscular Hemoglobin 32 pg (25-35) Mean Corpuscular Hemoglobin Concent 34 g/dL (31-37) Red Cell Distribution Width 13.9 % (11.5-14.5) Platelet Count 404 x10^3/uL (140-400) Neutrophils (%) (Auto) 88 % (31-73) Lymphocytes (%) (Auto) 9 % (24-48) Monocytes (%) (Auto) 2 % (0-9) Eosinophils (%) (Auto) 0 % (0-3) Basophils (%) (Auto) 0 % (0-3) Neutrophils # (Auto) 12.3 x10^3/uL (1.8-7.7) Lymphocytes # (Auto) 1.3 x10^3/uL (1.0-4.8) Monocytes # (Auto) 0.3 x10^3/uL (0.0-1.1) Eosinophils # (Auto) 0.0 x10^3/uL (0.0-0.7) Basophils # (Auto) 0.0 x10^3/uL (0.0-0.2) Segmented Neutrophils % 44 % (35-66) Band Neutrophils % 46 % (0-9) Lymphocytes % 8 % (24-48) Monocytes % 1 % (0-10) Basophils % 1 % (0-3) Platelet Estimate Increased (ADEQUATE) Prothrombin Time 12.8 SEC (11.7-14.0) Prothromb Time International Ratio 1.0 (0.8-1.1) Sodium Level 123 mmol/L (136-145) Potassium Level 4.3 mmol/L (3.5-5.1) Chloride Level 90 mmol/L (98-107) Carbon Dioxide Level 21 mmol/L (21-32) Anion Gap 12 (6-14) Blood Urea Nitrogen 9 mg/dL (7-20) Creatinine 1.3 mg/dL (0.6-1.0) Estimated GFR (Cockcroft-Gault) 41.8 BUN/Creatinine Ratio 7 (6-20) Glucose Level 111 mg/dL (70-99) Lactic Acid Level 2.4 mmol/L (0.4-2.0) 1.4 mmol/L (0.4-2.0) Calcium Level 9.4 mg/dL (8.5-10.1) Total Bilirubin 0.6 mg/dL (0.2-1.0) Aspartate Amino Transf (AST/SGOT) 22 U/L (15-37) Alanine Aminotransferase (ALT/SGPT) 24 U/L (14-59) Alkaline Phosphatase 115 U/L (46-116) Creatine Kinase 175 U/L (26-192) Troponin I Quantitative < 0.017 ng/mL (0.000-0.055) HS-Pxq-U-Type Natriuretic Peptide 1562 pg/mL (0-124) Total Protein 6.8 g/dL (6.4-8.2) Albumin 3.2 g/dL (3.4-5.0) Albumin/Globulin Ratio 0.9 (1.0-1.7) Lipase 71 U/L (73-393) Test 10/04/18 09:00 White Blood Count 20.8 x10^3/uL (4.0-11.0) Red Blood Count 3.38 x10^6/uL (3.50-5.40) Hemoglobin 10.5 g/dL (12.0-15.5) Hematocrit 31.7 % (36.0-47.0) Mean Corpuscular Volume 94 fL (79-100) Mean Corpuscular Hemoglobin 31 pg (25-35) Mean Corpuscular Hemoglobin Concent 33 g/dL (31-37) Red Cell Distribution Width 14.4 % (11.5-14.5) Platelet Count 379 x10^3/uL (140-400) Neutrophils (%) (Auto) 92 % (31-73) Lymphocytes (%) (Auto) 6 % (24-48) Monocytes (%) (Auto) 2 % (0-9) Eosinophils (%) (Auto) 0 % (0-3) Basophils (%) (Auto) 0 % (0-3) Neutrophils # (Auto) 19.2 x10^3/uL (1.8-7.7) Lymphocytes # (Auto) 1.3 x10^3/uL (1.0-4.8) Monocytes # (Auto) 0.3 x10^3/uL (0.0-1.1) Eosinophils # (Auto) 0.0 x10^3/uL (0.0-0.7) Basophils # (Auto) 0.0 x10^3/uL (0.0-0.2) Sodium Level 132 mmol/L (136-145) Potassium Level 4.3 mmol/L (3.5-5.1) Chloride Level 101 mmol/L (98-107) Carbon Dioxide Level 19 mmol/L (21-32) Anion Gap 12 (6-14) Blood Urea Nitrogen 12 mg/dL (7-20) Creatinine 0.9 mg/dL (0.6-1.0) Estimated GFR (Cockcroft-Gault) 63.9 Glucose Level 127 mg/dL (70-99) Calcium Level 9.2 mg/dL (8.5-10.1) Thyroid Stimulating Hormone (TSH) 0.406 uIU/mL (0.358-3.74) Laboratory Tests Test 10/03/18 13:47 10/03/18 13:59 10/03/18 14:20 10/03/18 19:00 Urine Collection Type Unknown Urine Color Yellow Urine Clarity Clear Urine pH 6.0 Urine Specific [place] 1.020 Urine Protein Negative mg/dL (NEG-TRACE) Urine Glucose (UA) Negative mg/dL (NEG) Urine Ketones (Stick) Negative mg/dL (NEG) Urine Blood Moderate (NEG) Urine Nitrite Positive (NEG) Urine Bilirubin Negative (NEG) Urine Urobilinogen Dipstick 0.2 mg/dL (0.2 mg/dL) Urine Leukocyte Esterase Large (NEG) Urine RBC 0 /HPF (0-2) Urine WBC Tntc /HPF (0-4) Urine Bacteria Many /HPF (0-FEW) O2 Saturation 90 % (92-99) Arterial Blood pH 7.42 (7.35-7.45) Arterial Blood pCO2 at Patient Temp 32 mmHg (35-46) Arterial Blood pO2 at Patient Temp 56 mmHg (65-108) Arterial Blood HCO3 20 mmol/L (21-28) Arterial Blood Base Excess -4 mmol/L (-3-3) FiO2 36 White Blood Count 13.9 x10^3/uL (4.0-11.0) Red Blood Count 3.84 x10^6/uL (3.50-5.40) Hemoglobin 12.1 g/dL (12.0-15.5) Hematocrit 35.2 % (36.0-47.0) Mean Corpuscular Volume 92 fL (79-100) Mean Corpuscular Hemoglobin 32 pg (25-35) Mean Corpuscular Hemoglobin Concent 34 g/dL (31-37) Red Cell Distribution Width 13.9 % (11.5-14.5) Platelet Count 404 x10^3/uL (140-400) Neutrophils (%) (Auto) 88 % (31-73) Lymphocytes (%) (Auto) 9 % (24-48) Monocytes (%) (Auto) 2 % (0-9) Eosinophils (%) (Auto) 0 % (0-3) Basophils (%) (Auto) 0 % (0-3) Neutrophils # (Auto) 12.3 x10^3/uL (1.8-7.7) Lymphocytes # (Auto) 1.3 x10^3/uL (1.0-4.8) Monocytes # (Auto) 0.3 x10^3/uL (0.0-1.1) Eosinophils # (Auto) 0.0 x10^3/uL (0.0-0.7) Basophils # (Auto) 0.0 x10^3/uL (0.0-0.2) Segmented Neutrophils % 44 % (35-66) Band Neutrophils % 46 % (0-9) Lymphocytes % 8 % (24-48) Monocytes % 1 % (0-10) Basophils % 1 % (0-3) Platelet Estimate Increased (ADEQUATE) Prothrombin Time 12.8 SEC (11.7-14.0) Prothromb Time International Ratio 1.0 (0.8-1.1) Sodium Level 123 mmol/L (136-145) Potassium Level 4.3 mmol/L (3.5-5.1) Chloride Level 90 mmol/L (98-107) Carbon Dioxide Level 21 mmol/L (21-32) Anion Gap 12 (6-14) Blood Urea Nitrogen 9 mg/dL (7-20) Creatinine 1.3 mg/dL (0.6-1.0) Estimated GFR (Cockcroft-Gault) 41.8 BUN/Creatinine Ratio 7 (6-20) Glucose Level 111 mg/dL (70-99) Lactic Acid Level 2.4 mmol/L (0.4-2.0) 1.4 mmol/L (0.4-2.0) Calcium Level 9.4 mg/dL (8.5-10.1) Total Bilirubin 0.6 mg/dL (0.2-1.0) Aspartate Amino Transf (AST/SGOT) 22 U/L (15-37) Alanine Aminotransferase (ALT/SGPT) 24 U/L (14-59) Alkaline Phosphatase 115 U/L (46-116) Creatine Kinase 175 U/L (26-192) Troponin I Quantitative < 0.017 ng/mL (0.000-0.055) [id number]-Sov-[id number]-Type Natriuretic Peptide 1562 pg/mL (0-124) Total Protein 6.8 g/dL (6.4-8.2) Albumin 3.2 g/dL (3.4-5.0) Albumin/Globulin Ratio 0.9 (1.0-1.7) Lipase 71 U/L (73-393) Test 10/04/18 09:00 White Blood Count 20.8 x10^3/uL (4.0-11.0) Red Blood Count 3.38 x10^6/uL (3.50-5.40) Hemoglobin 10.5 g/dL (12.0-15.5) Hematocrit 31.7 % (36.0-47.0) Mean Corpuscular Volume 94 fL (79-100) Mean Corpuscular Hemoglobin 31 pg (25-35) Mean Corpuscular Hemoglobin Concent 33 g/dL (31-37) Red Cell Distribution Width 14.4 % (11.5-14.5) Platelet Count 379 x10^3/uL (140-400) Neutrophils (%) (Auto) 92 % (31-73) Lymphocytes (%) (Auto) 6 % (24-48) Monocytes (%) (Auto) 2 % (0-9) Eosinophils (%) (Auto) 0 % (0-3) Basophils (%) (Auto) 0 % (0-3) Neutrophils # (Auto) 19.2 x10^3/uL (1.8-7.7) Lymphocytes # (Auto) 1.3 x10^3/uL (1.0-4.8) Monocytes # (Auto) 0.3 x10^3/uL (0.0-1.1) Eosinophils # (Auto) 0.0 x10^3/uL (0.0-0.7) Basophils # (Auto) 0.0 x10^3/uL (0.0-0.2) Sodium Level 132 mmol/L (136-145) Potassium Level 4.3 mmol/L (3.5-5.1) Chloride Level 101 mmol/L (98-107) Carbon Dioxide Level 19 mmol/L (21-32) Anion Gap 12 (6-14) Blood Urea Nitrogen 12 mg/dL (7-20) Creatinine 0.9 mg/dL (0.6-1.0) Estimated GFR (Cockcroft-Gault) 63.9 Glucose Level 127 mg/dL (70-99) Calcium Level 9.2 mg/dL (8.5-10.1) Thyroid Stimulating Hormone (TSH) 0.406 uIU/mL (0.358-3.74) Images Images PROCEDURE: PORTABLE CHEST 1V Indication: Sepsis, shortness of breath TECHNIQUE: Single AP view of the chest COMPARISON: 09/05/2018 FINDINGS: Patient is rotated to the right side limiting optimal evaluation. Heart is normal in size. Diffuse bilateral interstitial opacities are seen without focal consolidation. No pneumothorax or pleural effusion. Visualized bony thorax within normal limits. IMPRESSION: Diffuse bilateral mild interstitial opacities may be secondary to interstitial pulmonary edema or atypical/viral infection. VTE Prophylaxis Ordered VTE Prophylaxis Devices: Yes VTE Pharmacological Prophylaxi: No Assessment/Plan Assessment/Plan Sepsis - likely urinary source, hx of resistant infections, chronic indwelling Drummond - ID consult. She has improved and is stable for transfer to medical floor chest pain - initial ER complaint - no evidence of acute cardiac issue acute on chronic CHF - BNP mildly elevated, cardiology consulted COPD - pulm following lumbar back pain, sciatica - Fentanyl causing excessive drowsiness so will stop it hypokalemia - improved after IV hydration Anemia - dilutional from IVF leukocytosis - worsening but may be from steroids she received for possible adrenal crisis depression, anxiety - continue home meds hypothyroid - continue home meds OA, s/p joint replacements with recent admission for hip dislocation Davion FULTON MD Oct 04, 2018 12:13
--- NOTE | 2018-10-04 15:22 | PDOC2 ---
CONSULT Date of Consult Date of Consult DATE: 10/04/18 TIME: 15:15 Reason for Consult Reason for Consult: Chest pain Referring Physician Referring Physician: Dr. Downey Identification/Chief Complaint Chief Complaint Chest pain Source Source: Chart review, Patient History of Present Illness Reason for Visit: The patient is a 70-year-old female who was brought to the emergency room for episodes of increasing shortness of breath and chest discomfort. Paramedics reported a initial temperature of 102. Patient's initial EKG showed a sinus tachycardia with no acute ischemic changes. Chest x-ray showed diffuse opacification. White count has increased today to 20.8 with a troponin of less than 0.017 and a BNP elevated at 1562. Patient has been treated for sepsis and is doing much better. Her pain has resolved. Her shortness of breath has improved. Previous cardiac workup included an echocardiogram on 07/01/18 that showed a normal ejection fraction and mild right ventricular hypertrophy. A Lexiscan nuclear stress test on 07/18/17 showed no evidence of ischemia or in farct and an ejection fraction of greater than 80%. Past Medical History Cardiovascular: CAD, HTN, Hyperlipidemia, Other (coronary stents) Pulmonary: COPD CENTRAL NERVOUS SYSTEM: CVA GI: GERD, Other Heme/Onc: Anemia NOS Psych: Anxiety, Depression Musculoskeletal: low back pain, Osteoarthritis, Other Infectious disease: No pertinent hx Endocrine: Hypothyroidism Past Surgical History Past Surgical History: Cholecystectomy, Hernia Repair, Total hip replacement, Total knee replacement, Hysterectomy, Colectomy, Colon Resection, Other (coronary stents) Family History Family History: Stroke Social History Social History: Parent (mother - heart disease, stroke. Father - , ALS. sister with diabetes) Quit (07/23/18) ALCOHOL: none Drugs: None Lives: Alone Current Problem List Problem List Problems Medical Problems: (1) Bandemia Status: Acute (2) HCAP (healthcare-associated pneumonia) Status: Acute (3) Hypoxia Status: Acute (4) Renal insufficiency Status: Acute (5) Sepsis Status: Acute (6) UTI (urinary tract infection) due to urinary indwelling [place] catheter Status: Acute Current Medications Current Medications Current Medications Albuterol/ Ipratropium (Duoneb) 3 ml 1X ONCE NEB Last administered on 10/03/18at 14:52; Start 10/03/18 at 14:45; Stop 10/03/18 at 14:46; Status DC Methylprednisolone Sodium Succinate (SOLU-Medrol 125MG VIAL) 125 mg 1X ONCE IV Last administered on 10/03/18at 15:16; Start 10/03/18 at 14:45; Stop 10/03/18 at 14:46; Status DC Sodium Chloride 1,000 ml @ 1,000 mls/hr 1X ONCE IV Last administered on 10/03/18at 14:40; Start 10/03/18 at 14:45; Stop 10/03/18 at 15:44; Status DC Sodium Chloride 1,000 ml @ 1,000 mls/hr 1X ONCE IV Last administered on 10/03/18at 15:45; Start 10/03/18 at 15:15; Stop 10/03/18 at 16:14; Status DC Piperacillin Sod/ Tazobactam Sod 3.375 gm/Sodium Chloride 50 ml @ 100 mls/hr 1X ONCE IV Last administered on 10/03/18at 15:35; Start 10/03/18 at 15:30; Stop 10/03/18 at 15:59; Status DC Vancomycin HCl 250 ml @ 250 mls/hr 1X ONCE IV ; Start 10/03/18 at 15:15; Stop 10/03/18 at 16:14; Status UNV Vancomycin HCl 2 gm/Sodium Chloride 500 ml @ 250 mls/hr 1X ONCE IV Last administered on 10/03/18at 15:37; Start 10/03/18 at 16:00; Stop 10/03/18 at 17:59; Status DC Albuterol Sulfate (Ventolin Neb Soln) 2.5 mg PRN Q4HRS PRN INH SHORTNESS OF BREATH; Start 10/03/18 at 16:15 Alprazolam (Xanax) 1 mg QID PO Last administered on 10/04/18at 12:04; Start 10/03/18 at 17:00 Aspirin (Nader Aspirin) 325 mg DAILY PO Last administered on 10/04/18at 08:01; Start 10/04/18 at 09:00 Atorvastatin Calcium (Lipitor) 40 mg HS PO Last administered on 10/03/18at 20:41; Start 10/03/18 at 21:00 Buspirone HCl (Buspar) 10 mg BID PO Last administered on 10/04/18at 08:03; Start 10/03/18 at 21:00 Ergocalciferol (Vitamin D2) 50,000 unit WEEKLY PO ; Start 10/10/18 at 09:00 Furosemide (Lasix) 40 mg DAILY PO Last administered on 10/04/18at 08:02; Start 10/04/18 at 09:00 Lidocaine (Lidoderm) 1 patch PRN Q12HRS PRN TP PAIN; Start 10/03/18 at 16:15 Non-Formulary Medication (Albuterol Sulfate (Albuterol Sulfate Neb Soln)) 1 vial QID NEB ; Start 10/03/18 at 17:00; Status UNV Fluticasone Propionate (Flonase) 2 spray DAILY NS Last administered on 10/04/18 09:00; Start 10/04/18 at 09:00 Budesonide (Pulmicort) 0.5 mg RTBID NEB Last administered on 10/04/18at 08:04; Start 10/03/18 at 20:00 Gabapentin (Neurontin) 600 mg TID PO Last administered on 10/04/18at 08:04; Start 10/03/18 at 21:00 Levothyroxine Sodium (Synthroid) 150 mcg DAILY06 PO Last administered on 10/04/18at 05:54; Start 10/04/18 at 06:00 Magnesium Oxide (Magnesium Oxide) 400 mg QID PO Last administered on 10/04/18at 12:04; Start 10/03/18 at 17:00 Mirtazapine (Remeron Frances-Tab) 30 mg QHS PO Last administered on 10/03/18at 20:39; Start 10/03/18 at 21:00 Olanzapine (ZyPREXA) 5 mg QHS PO Last administered on 10/03/18at 20:40; Start 10/03/18 at 21:00 Fish Oil (Fish Oil) 1,000 mg DAILY PO Last administered on 10/04/18 08:02; Start 10/03/18 at 17:00 Pantoprazole Sodium (Protonix) 40 mg DAILYAC PO Last administered on 10/04/18at 07:38; Start 10/04/18 at 07:30 Potassium Chloride (Klor-Con) 40 meq TIDWMEALS PO Last administered on 10/04/18at 12:04; Start 10/03/18 at 17:00 Tizanidine HCl (Zanaflex) 4 mg QID PO Last administered on 10/04/18at 12:04; Start 10/03/18 at 17:00 Enoxaparin Sodium (Lovenox 40mg Syringe) 40 mg Q24H SQ Last administered on 10/03/18at 19:03; Start 10/03/18 at 17:00 Albuterol Sulfate (Ventolin Neb Soln) 2.5 mg RTQID NEB Last administered on 10/04/18at 15:01; Start 10/03/18 at 20:00 Sodium Chloride 1,000 ml @ 150 mls/hr Q6H40M IV Last administered on 10/04/18at 05:53; Start 10/03/18 at 18:00; Stop 10/04/18 at 10:38; Status DC Tramadol HCl (Ultram) 50 mg PRN Q6HRS PRN PO PAIN Last administered on 10/03/18at 20:40; Start 10/03/18 at 20:30; Stop 10/04/18 at 12:15; Status DC Fentanyl Citrate (Fentanyl 2ml Vial) 25 mcg PRN Q4HRS PRN IV SEVERE PAIN 7-10 Last administered on 10/04/18at 07:39; Start 10/03/18 at 22:30; Stop 10/04/18 at 12:15; Status DC Lactobacillus Rhamnosus (Culturelle) 1 cap BID PO ; Start 10/04/18 at 09:00; Status Cancel Hydrocortisone Sodium Succinate (Solu-CORTEF) 100 mg Q8HRS IV Last administered on 10/04/18at 09:06; Start 10/04/18 at 08:30 Piperacillin Sod/ Tazobactam Sod 3.375 gm/Sodium Chloride 50 ml @ 100 mls/hr Q6HRS IV Last administered on 10/04/18at 09:07; Start 10/04/18 at 09:00 Vancomycin HCl 2 gm/Sodium Chloride 500 ml @ 250 mls/hr Q12H IV ; Start 10/04/18 at 08:15; Status UNV Vancomycin HCl (Vanco Per Pharmacy) 1 each PRN DAILY PRN MC SEE COMMENTS Last administered on 10/04/18at 08:37; Start 10/04/18 at 08:30 Vancomycin HCl 1.5 gm/Sodium Chloride 500 ml @ 250 mls/hr Q24H IV ; Start 10/04/18 at 15:30 Vancomycin HCl (Vancomycin Trough Level) 1 each 1X ONCE MC ; Start 10/05/18 at 15:00; Stop 10/05/18 at 15:01 Lactobacillus Rhamnosus (Culturelle) 1 cap BID PO ; Start 10/04/18 at 21:00 Sodium Chloride 1,000 ml @ 150 mls/hr Q6H40M IV Last administered on 10/04/18at 10:47; Start 10/04/18 at 10:45 Acetaminophen/ Hydrocodone Bitart (Lortab 7.5/325) 1 tab PRN Q6HRS PRN PO PAIN; Start 10/04/18 at 12:15 Active Scripts Active Cephalexin 500 Mg Capsule 1 Cap PO QID Lidocaine PATCH (Lidocaine) 1 Each Adh..patch 1 Each TP Q12HR PRN Keep patch on for 12 hours then removed for next 12 hours before placing new patch. Repeat as needed for back pain. Prednisone 20 Mg Tablet 2 Tab PO DAILY Start this medication tomorrow, Friday08/11/18 Levothyroxine Sodium 150 Mcg Tablet 1 Tab PO DAILY Reported Venlafaxine Hcl Er (Venlafaxine Hcl) 75 Mg Cap.er.24h 75 Mg PO DAILY Vitamin D2 (Ergocalciferol (Vitamin D2)) 50,000 Unit Capsule 1 Cap PO WEEKLY Flonase Allergy Relief (Fluticasone Propionate) 9.9 Ml [place].susp 2 Sprays NS DAILY Albuterol Sulfate Neb Soln (Albuterol Sulfate) 0.63 Mg/3 Ml Vial.neb 1 Vial NEB QID Detrol La (Tolterodine Tartrate) 2 Mg Cap.er.24h 1 Cap PO BID [Anusol-Hc] 25 Mg VAG HS Olanzapine 5 Mg Tablet 1 Tab PO QHS Buspirone Hcl 10 Mg Tablet 1 Tab PO BID Effexor Xr (Venlafaxine Hcl) 150 Mg Cap.er.24h 1 Cap PO DAILY Mirtazapine 30 Mg Tablet 1 Tab PO QHS Chantix (Varenicline Tartrate) 1 Mg Tablet 1 Mg PO BID Atorvastatin Calcium 20 Mg Tablet 40 Mg PO HS Vitamin E 400 Unit Capsule 400 Unit PO DAILY Fish Oil ([place]-3 Fatty Acids) 500 Mg Capsule 500 Mg PO DAILY Magnesium Oxide 400 Mg Tablet 400 Mg PO QID Xanax (Alprazolam) 1 Mg Tablet 1 Mg PO QID Lasix (Furosemide) 40 Mg Tablet 40 Mg PO DAILY Aspirin 325 Mg Tablet 325 Mg PO DAILY Gabapentin 600 Mg Tablet 600 Mg PO TID Tizanidine Hcl 4 Mg Tablet 4 Mg PO QID Omeprazole 20 Mg Tablet.dr 20 Mg PO DAILY07 Klor-Con (Potassium Chloride) 20 Meq Packet 40 Meq PO TID Proair Hfa Inhaler (Albuterol Sulfate) 8.5 Gm Hfa.aer.ad 8.5 Gm IH Q4HRS PRN Advair 500-50 Diskus (Fluticasone/Salmeterol) 1 Each Disk.w.dev 1 Each IH BID Allergies Allergies: Coded Allergies: apixaban (Verified Allergy, Intermediate, Swelling, 05/17/18) hydromorphone (Verified Allergy, Intermediate, 08/10/18) TOLERATES LORTAB AND MORPHINE phenytoin sodium (Verified Allergy, Intermediate, 05/17/18) phenytoin sodium extended (Verified Allergy, Intermediate, 05/17/18) I S O L A T I O N *CONTACT* (Verified Allergy, Unknown, 05/17/18) mrsa doxycycline (Verified Adverse Reaction, Intermediate, GI UPSET, 05/17/18) pregabalin (Verified Adverse Reaction, Intermediate, [place]IGHT[place], 05/17/18) ROS General: YES: Fatigue Respiratory: YES: SOB with excertion Cardiovascular: yes Chest Pain Physical Exam General: mild distress HEENT: Atraumatic Lungs: Other (mildly decreased breath sounds) Heart: Regular rate Abdomen: Normal bowel sounds Vitals VITALS Vital Signs Date Time Temp Pulse Resp B/P (MAP) Pulse Ox O2 Delivery O2 Flow Rate FiO2 10/04/18 15:02 Nasal Cannula 2.0 10/04/18 11:55 96 10/04/18 11:00 79 16 99/54 (69) 10/04/18 07:00 97.9 97.9 Labs Labs Laboratory Tests Test 10/03/18 13:47 10/03/18 13:59 10/03/18 14:20 10/03/18 19:00 Urine Collection Type Unknown Urine Color Yellow Urine Clarity Clear Urine pH 6.0 Urine Specific [place] 1.020 Urine Protein Negative mg/dL (NEG-TRACE) Urine Glucose (UA) Negative mg/dL (NEG) Urine Ketones (Stick) Negative mg/dL (NEG) Urine Blood Moderate (NEG) Urine Nitrite Positive (NEG) Urine Bilirubin Negative (NEG) Urine Urobilinogen Dipstick 0.2 mg/dL (0.2 mg/dL) Urine Leukocyte Esterase Large (NEG) Urine RBC 0 /HPF (0-2) Urine WBC Tntc /HPF (0-4) Urine Bacteria Many /HPF (0-FEW) O2 Saturation 90 % (92-99) Arterial Blood pH 7.42 (7.35-7.45) Arterial Blood pCO2 at Patient Temp 32 mmHg (35-46) Arterial Blood pO2 at Patient Temp 56 mmHg (65-108) Arterial Blood HCO3 20 mmol/L (21-28) Arterial Blood Base Excess -4 mmol/L (-3-3) FiO2 36 White Blood Count 13.9 x10^3/uL (4.0-11.0) Red Blood Count 3.84 x10^6/uL (3.50-5.40) Hemoglobin 12.1 g/dL (12.0-15.5) Hematocrit 35.2 % (36.0-47.0) Mean Corpuscular Volume 92 fL (79-100) Mean Corpuscular Hemoglobin 32 pg (25-35) Mean Corpuscular Hemoglobin Concent 34 g/dL (31-37) Red Cell Distribution Width 13.9 % (11.5-14.5) Platelet Count 404 x10^3/uL (140-400) Neutrophils (%) (Auto) 88 % (31-73) Lymphocytes (%) (Auto) 9 % (24-48) Monocytes (%) (Auto) 2 % (0-9) Eosinophils (%) (Auto) 0 % (0-3) Basophils (%) (Auto) 0 % (0-3) Neutrophils # (Auto) 12.3 x10^3/uL (1.8-7.7) Lymphocytes # (Auto) 1.3 x10^3/uL (1.0-4.8) Monocytes # (Auto) 0.3 x10^3/uL (0.0-1.1) Eosinophils # (Auto) 0.0 x10^3/uL (0.0-0.7) Basophils # (Auto) 0.0 x10^3/uL (0.0-0.2) Segmented Neutrophils % 44 % (35-66) Band Neutrophils % 46 % (0-9) Lymphocytes % 8 % (24-48) Monocytes % 1 % (0-10) Basophils % 1 % (0-3) Platelet Estimate Increased (ADEQUATE) Prothrombin Time 12.8 SEC (11.7-14.0) Prothromb Time International Ratio 1.0 (0.8-1.1) Sodium Level 123 mmol/L (136-145) Potassium Level 4.3 mmol/L (3.5-5.1) Chloride Level 90 mmol/L (98-107) Carbon Dioxide Level 21 mmol/L (21-32) Anion Gap 12 (6-14) Blood Urea Nitrogen 9 mg/dL (7-20) Creatinine 1.3 mg/dL (0.6-1.0) Estimated GFR (Cockcroft-Gault) 41.8 BUN/Creatinine Ratio 7 (6-20) Glucose Level 111 mg/dL (70-99) Lactic Acid Level 2.4 mmol/L (0.4-2.0) 1.4 mmol/L (0.4-2.0) Calcium Level 9.4 mg/dL (8.5-10.1) Total Bilirubin 0.6 mg/dL (0.2-1.0) Aspartate Amino Transf (AST/SGOT) 22 U/L (15-37) Alanine Aminotransferase (ALT/SGPT) 24 U/L (14-59) Alkaline Phosphatase 115 U/L (46-116) Creatine Kinase 175 U/L (26-192) Troponin I Quantitative < 0.017 ng/mL (0.000-0.055) DU-Lqc-C-Type Natriuretic Peptide 1562 pg/mL (0-124) Total Protein 6.8 g/dL (6.4-8.2) Albumin 3.2 g/dL (3.4-5.0) Albumin/Globulin Ratio 0.9 (1.0-1.7) Lipase 71 U/L (73-393) Test 10/04/18 09:00 White Blood Count 20.8 x10^3/uL (4.0-11.0) Red Blood Count 3.38 x10^6/uL (3.50-5.40) Hemoglobin 10.5 g/dL (12.0-15.5) Hematocrit 31.7 % (36.0-47.0) Mean Corpuscular Volume 94 fL (79-100) Mean Corpuscular Hemoglobin 31 pg (25-35) Mean Corpuscular Hemoglobin Concent 33 g/dL (31-37) Red Cell Distribution Width 14.4 % (11.5-14.5) Platelet Count 379 x10^3/uL (140-400) Neutrophils (%) (Auto) 92 % (31-73) Lymphocytes (%) (Auto) 6 % (24-48) Monocytes (%) (Auto) 2 % (0-9) Eosinophils (%) (Auto) 0 % (0-3) Basophils (%) (Auto) 0 % (0-3) Neutrophils # (Auto) 19.2 x10^3/uL (1.8-7.7) Lymphocytes # (Auto) 1.3 x10^3/uL (1.0-4.8) Monocytes # (Auto) 0.3 x10^3/uL (0.0-1.1) Eosinophils # (Auto) 0.0 x10^3/uL (0.0-0.7) Basophils # (Auto) 0.0 x10^3/uL (0.0-0.2) Sodium Level 132 mmol/L (136-145) Potassium Level 4.3 mmol/L (3.5-5.1) Chloride Level 101 mmol/L (98-107) Carbon Dioxide Level 19 mmol/L (21-32) Anion Gap 12 (6-14) Blood Urea Nitrogen 12 mg/dL (7-20) Creatinine 0.9 mg/dL (0.6-1.0) Estimated GFR (Cockcroft-Gault) 63.9 Glucose Level 127 mg/dL (70-99) Calcium Level 9.2 mg/dL (8.5-10.1) Thyroid Stimulating Hormone (TSH) 0.406 uIU/mL (0.358-3.74) Laboratory Tests Test 10/03/18 19:00 10/04/18 09:00 Lactic Acid Level 1.4 mmol/L (0.4-2.0) White Blood Count 20.8 x10^3/uL (4.0-11.0) Red Blood Count 3.38 x10^6/uL (3.50-5.40) Hemoglobin 10.5 g/dL (12.0-15.5) Hematocrit 31.7 % (36.0-47.0) Mean Corpuscular Volume 94 fL (79-100) Mean Corpuscular Hemoglobin 31 pg (25-35) Mean Corpuscular Hemoglobin Concent 33 g/dL (31-37) Red Cell Distribution Width 14.4 % (11.5-14.5) Platelet Count 379 x10^3/uL (140-400) Neutrophils (%) (Auto) 92 % (31-73) Lymphocytes (%) (Auto) 6 % (24-48) Monocytes (%) (Auto) 2 % (0-9) Eosinophils (%) (Auto) 0 % (0-3) Basophils (%) (Auto) 0 % (0-3) Neutrophils # (Auto) 19.2 x10^3/uL (1.8-7.7) Lymphocytes # (Auto) 1.3 x10^3/uL (1.0-4.8) Monocytes # (Auto) 0.3 x10^3/uL (0.0-1.1) Eosinophils # (Auto) 0.0 x10^3/uL (0.0-0.7) Basophils # (Auto) 0.0 x10^3/uL (0.0-0.2) Sodium Level 132 mmol/L (136-145) Potassium Level 4.3 mmol/L (3.5-5.1) Chloride Level 101 mmol/L (98-107) Carbon Dioxide Level 19 mmol/L (21-32) Anion Gap 12 (6-14) Blood Urea Nitrogen 12 mg/dL (7-20) Creatinine 0.9 mg/dL (0.6-1.0) Estimated GFR (Cockcroft-Gault) 63.9 Glucose Level 127 mg/dL (70-99) Calcium Level 9.2 mg/dL (8.5-10.1) Thyroid Stimulating Hormone (TSH) 0.406 uIU/mL (0.358-3.74) Images Images Chest x-ray with diffuse bilateral opacities. Assessment/Plan Assessment/Plan 1. Sepsis. Patient has been treated with antibiotics and has been seen by the ID service. She has improved overnight. Continue present treatment. 2. Original episodes of chest pain. Resolved. History of coronary artery disease. Troponins are normal. EKG shows no ischemic changes. We'll continue present treatment. 3. Contributing acute on chronic diastolic heart failure. BNP is elevated at 1562. Echocardiogram 3 months ago showed normal LV systolic function. At this time will continue present treatments and monitoring lab. 4. Chronic kidney disease. Lab being monitored as above. 5. COPD. Pulmonary medications. Thank you for allowing us to participate in the care of your patient. JACKELIN BARNETT MD Oct 04, 2018 15:22
[2018-10-04] MEDS ORDERED: VANCOMYCIN 1.5 GM in IV NORMAL SALINE 500ML BAG 500 ML IV SCH (15:30)
[2018-10-04] MEDS: HYDROcodone/APAP 7.5/325MG 1 TAB TABLET PO PRN ×2 (15:46→21:55)
[2018-10-04] MEDS: ENOXAPARIN 40 MG/0.4 ML SYRINGE. SQ SCH (17:40)
[2018-10-04] MEDS: ATORVASTATIN CALCIUM 20 MG TABLET PO SCH (21:51)
[2018-10-04] MEDS: LACTOBACILLUS RHAMNOSUS GG 1 CAPSULE. PO SCH (21:52)
[2018-10-04] MEDS: OLANZapine 5 MG TABLET PO SCH (21:52)
[2018-10-04] MEDS: MIRTAZAPINE 15 MG TAB.RAPDIS PO SCH (21:52)
[2018-10-05] MEDS: IV 1/2 NORMAL SALINE 1,000 ML IV SCH ×4 (00:10→14:43)
[2018-10-05] MEDS: PIPERACILLIN/TAZOBACTAM 3.375 GM in IV NORMAL SALINE 50ML 50 ML IV SCH ×4 (00:10→18:00)
[2018-10-05 03:00] VITALS: BP 127/64
[2018-10-05] MEDS: HYDROCORTISONE SOD SUCC/PF 100 MG/2 ML VIAL. IV SCH ×3 (05:57→21:13)
[2018-10-05] MEDS: LEVOTHYROXINE 150 MCG TABLET PO SCH (06:00)
[2018-10-05] MEDS: HYDROcodone/APAP 7.5/325MG 1 TAB TABLET PO PRN ×2 (06:02→21:41)
[2018-10-05 07:00] VITALS: BP 124/70
[2018-10-05] MEDS: BUDESONIDE 0.5 MG/2 ML NEBU. NEB SCH ×2 (07:29→20:11)
[2018-10-05] MEDS: ALBUTEROL SULFATE 2.5 MG/3 ML NEBU. NEB SCH ×4 (07:30→20:11)
[2018-10-05] MEDS: busPIRone 10 MG TABLET. PO SCH ×2 (08:03→21:12)
[2018-10-05] MEDS: PANTOPRAZOLE 40 MG TABLET.DR. PO SCH (08:03)
[2018-10-05] MEDS: MAGNESIUM OXIDE 400 MG TABLET PO SCH ×4 (08:04→21:11)
[2018-10-05] MEDS: LACTOBACILLUS RHAMNOSUS GG 1 CAPSULE. PO SCH ×2 (08:04→21:11)
[2018-10-05] MEDS: ASPIRIN 325 MG TABLET PO SCH (08:04)
[2018-10-05] MEDS: ALPRAZolam 1 MG TABLET PO SCH ×4 (08:04→21:11)
[2018-10-05] MEDS: tiZANidine 4 MG TABLET. PO SCH ×4 (08:04→21:11)
[2018-10-05] MEDS: POTASSIUM CHLORIDE 20 MEQ TABLET.ER. PO SCH ×3 (08:04→17:00)
[2018-10-05] MEDS: GABAPENTIN 300 MG CAPSULE. PO SCH ×3 (08:04→21:11)
[2018-10-05] MEDS: FUROSEMIDE 40 MG TABLET. PO SCH (08:05)
[2018-10-05] MEDS: FLUTICASONE 50MCG/NASAL SPRAY 16GM BOTTLE. NS SCH (08:05)
[2018-10-05] MEDS: OMEGA-3 FATTY ACIDS/FISH OIL 1,000 MG CAPSULE. PO SCH (08:05)
--- NOTE | 2018-10-05 09:24 | PDOC ---
PROGRESS NOTES Subjective Subjective Patient c/o some back and side pain. Objective Objective Vital Signs Date Time Temp Pulse Resp B/P (MAP) Pulse Ox O2 Delivery O2 Flow Rate FiO2 10/05/18 07:30 95 2.0 10/05/18 07:00 97.4 71 16 124/70 (88) Nasal Cannula 97.4 Intake and Output 10/05/18 07:00 Intake Total 4350 ml Output Total 3725 ml Balance 625 ml Intake Oral 1950 ml IV Total 2400 ml Output Urine Total 3025 ml Stool Total 700 ml Physical Exam Abdomen: Normal bowel sounds, Soft, No tenderness Heart: Regular rate Extremities: No edema General: Alert (somewhat sleepy after receiving pain medication), Oriented X3, No acute distress Lungs: Other (BS decreased throughout, mild wheezes) Assessment Assessment Problems Medical Problems: (1) Acute lung injury Status: Acute (2) Acute on chronic congestive heart failure Status: Acute (3) Bandemia Status: Acute (4) CAD (coronary artery disease) Status: Chronic (5) COPD (chronic obstructive pulmonary disease) Status: Chronic (6) HCAP (healthcare-associated pneumonia) Status: Acute (7) Hypokalemia Status: Acute (8) Hypothyroidism Status: Chronic (9) Hypoxia Status: Acute (10) Lumbar back pain Status: Chronic (11) Renal insufficiency Status: Acute (12) Sepsis Status: Acute (13) Septic shock due to urinary tract infection Status: Acute (14) UTI (urinary tract infection) due to urinary indwelling Drummond catheter Status: Acute Plan Plan of Care 1. Sepsis with UTI - stable, continue Zosyn and Vancomycin per ID. Blood and urine cultures pending. 2. COPD - stable. Pulmonary thought patient could have some shock lung due to the sepsis. Not hypoxic on her usual 2L O2 per NC. Continue nebs. 3. hyponatremia - improved with IVF. AM Cortisol WNL. On steroids per Pulmonary for possible adrenal insufficiency. 4. hypothyroidism - lab good, continue her usual dose of Levothyroxine. 5. chronic back pain - stable, continue po pain meds. Risks of IV meds discussed. Therapies ordered, patient advised to be out of bed today. 6. chronic anxiety and depression - at baseline, continue her usual medications per Psychiatry. 7. HTN - BP meds on hold due to hypotension, which is improving. 8. chronic urinary retention - continue Drummond. Comment Review of Relevant I have reviewed the following items chris (where applicable) has been applied. Labs Laboratory Tests Test 10/03/18 13:47 10/03/18 13:59 10/03/18 14:20 10/03/18 16:20 Urine Collection Type Unknown Urine Color Yellow Urine Clarity Clear Urine pH 6.0 Urine Specific [place] 1.020 Urine Protein Negative mg/dL (NEG-TRACE) Urine Glucose (UA) Negative mg/dL (NEG) Urine Ketones (Stick) Negative mg/dL (NEG) Urine Blood Moderate (NEG) Urine Nitrite Positive (NEG) Urine Bilirubin Negative (NEG) Urine Urobilinogen Dipstick 0.2 mg/dL (0.2 mg/dL) Urine Leukocyte Esterase Large (NEG) Urine RBC 0 /HPF (0-2) Urine WBC Tntc /HPF (0-4) Urine Bacteria Many /HPF (0-FEW) O2 Saturation 90 % (92-99) Arterial Blood pH 7.42 (7.35-7.45) Arterial Blood pCO2 at Patient Temp 32 mmHg (35-46) Arterial Blood pO2 at Patient Temp 56 mmHg (65-108) Arterial Blood HCO3 20 mmol/L (21-28) Arterial Blood Base Excess -4 mmol/L (-3-3) FiO2 36 White Blood Count 13.9 x10^3/uL (4.0-11.0) Red Blood Count 3.84 x10^6/uL (3.50-5.40) Hemoglobin 12.1 g/dL (12.0-15.5) Hematocrit 35.2 % (36.0-47.0) Mean Corpuscular Volume 92 fL (79-100) Mean Corpuscular Hemoglobin 32 pg (25-35) Mean Corpuscular Hemoglobin Concent 34 g/dL (31-37) Red Cell Distribution Width 13.9 % (11.5-14.5) Platelet Count 404 x10^3/uL (140-400) Neutrophils (%) (Auto) 88 % (31-73) Lymphocytes (%) (Auto) 9 % (24-48) Monocytes (%) (Auto) 2 % (0-9) Eosinophils (%) (Auto) 0 % (0-3) Basophils (%) (Auto) 0 % (0-3) Neutrophils # (Auto) 12.3 x10^3/uL (1.8-7.7) Lymphocytes # (Auto) 1.3 x10^3/uL (1.0-4.8) Monocytes # (Auto) 0.3 x10^3/uL (0.0-1.1) Eosinophils # (Auto) 0.0 x10^3/uL (0.0-0.7) Basophils # (Auto) 0.0 x10^3/uL (0.0-0.2) Segmented Neutrophils % 44 % (35-66) Band Neutrophils % 46 % (0-9) Lymphocytes % 8 % (24-48) Monocytes % 1 % (0-10) Basophils % 1 % (0-3) Platelet Estimate Increased (ADEQUATE) Prothrombin Time 12.8 SEC (11.7-14.0) Prothromb Time International Ratio 1.0 (0.8-1.1) Sodium Level 123 mmol/L (136-145) Potassium Level 4.3 mmol/L (3.5-5.1) Chloride Level 90 mmol/L (98-107) Carbon Dioxide Level 21 mmol/L (21-32) Anion Gap 12 (6-14) Blood Urea Nitrogen 9 mg/dL (7-20) Creatinine 1.3 mg/dL (0.6-1.0) Estimated GFR (Cockcroft-Gault) 41.8 BUN/Creatinine Ratio 7 (6-20) Glucose Level 111 mg/dL (70-99) Lactic Acid Level 2.4 mmol/L (0.4-2.0) Calcium Level 9.4 mg/dL (8.5-10.1) Total Bilirubin 0.6 mg/dL (0.2-1.0) Aspartate Amino Transf (AST/SGOT) 22 U/L (15-37) Alanine Aminotransferase (ALT/SGPT) 24 U/L (14-59) Alkaline Phosphatase 115 U/L (46-116) Creatine Kinase 175 U/L (26-192) Troponin I Quantitative < 0.017 ng/mL (0.000-0.055) GQ-Vdr-L-Type Natriuretic Peptide 1562 pg/mL (0-124) Total Protein 6.8 g/dL (6.4-8.2) Albumin 3.2 g/dL (3.4-5.0) Albumin/Globulin Ratio 0.9 (1.0-1.7) Lipase 71 U/L (73-393) Nasal Screen MRSA (PCR) Positive (Negative) Test 10/03/18 19:00 10/04/18 09:00 10/04/18 11:20 Lactic Acid Level 1.4 mmol/L (0.4-2.0) White Blood Count 20.8 x10^3/uL (4.0-11.0) Red Blood Count 3.38 x10^6/uL (3.50-5.40) Hemoglobin 10.5 g/dL (12.0-15.5) Hematocrit 31.7 % (36.0-47.0) Mean Corpuscular Volume 94 fL (79-100) Mean Corpuscular Hemoglobin 31 pg (25-35) Mean Corpuscular Hemoglobin Concent 33 g/dL (31-37) Red Cell Distribution Width 14.4 % (11.5-14.5) Platelet Count 379 x10^3/uL (140-400) Neutrophils (%) (Auto) 92 % (31-73) Lymphocytes (%) (Auto) 6 % (24-48) Monocytes (%) (Auto) 2 % (0-9) Eosinophils (%) (Auto) 0 % (0-3) Basophils (%) (Auto) 0 % (0-3) Neutrophils # (Auto) 19.2 x10^3/uL (1.8-7.7) Lymphocytes # (Auto) 1.3 x10^3/uL (1.0-4.8) Monocytes # (Auto) 0.3 x10^3/uL (0.0-1.1) Eosinophils # (Auto) 0.0 x10^3/uL (0.0-0.7) Basophils # (Auto) 0.0 x10^3/uL (0.0-0.2) Sodium Level 132 mmol/L (136-145) Potassium Level 4.3 mmol/L (3.5-5.1) Chloride Level 101 mmol/L (98-107) Carbon Dioxide Level 19 mmol/L (21-32) Anion Gap 12 (6-14) Blood Urea Nitrogen 12 mg/dL (7-20) Creatinine 0.9 mg/dL (0.6-1.0) Estimated GFR (Cockcroft-Gault) 63.9 Glucose Level 127 mg/dL (70-99) Calcium Level 9.2 mg/dL (8.5-10.1) DR-Qza-J-Type Natriuretic Peptide 2390 pg/mL (0-124) Thyroid Stimulating Hormone (TSH) 0.406 uIU/mL (0.358-3.74) Cortisol AM Sample 12.8 ug/dL (4.3-22.4) Thyroxine (T4) 6.9 ug/dL (4.5-12.0) Laboratory Tests Test 10/04/18 11:20 Thyroxine (T4) 6.9 ug/dL (4.5-12.0) Microbiology 10/03/18 Blood Culture - Preliminary, Resulted NO GROWTH AFTER 1 DAY Medications Current Medications Albuterol/ Ipratropium (Duoneb) 3 ml 1X ONCE NEB Last administered on 10/03/18at 14:52; Start 10/03/18 at 14:45; Stop 10/03/18 at 14:46; Status DC Methylprednisolone Sodium Succinate (SOLU-Medrol 125MG VIAL) 125 mg 1X ONCE IV Last administered on 10/03/18at 15:16; Start 10/03/18 at 14:45; Stop 10/03/18 at 14:46; Status DC Sodium Chloride 1,000 ml @ 1,000 mls/hr 1X ONCE IV Last administered on 10/03/18at 14:40; Start 10/03/18 at 14:45; Stop 10/03/18 at 15:44; Status DC Sodium Chloride 1,000 ml @ 1,000 mls/hr 1X ONCE IV Last administered on 10/03/18at 15:45; Start 10/03/18 at 15:15; Stop 10/03/18 at 16:14; Status DC Piperacillin Sod/ Tazobactam Sod 3.375 gm/Sodium Chloride 50 ml @ 100 mls/hr 1X ONCE IV Last administered on 10/03/18at 15:35; Start 10/03/18 at 15:30; Stop 10/03/18 at 15:59; Status DC Vancomycin HCl 250 ml @ 250 mls/hr 1X ONCE IV ; Start 10/03/18 at 15:15; Stop 10/03/18 at 16:14; Status UNV Vancomycin HCl 2 gm/Sodium Chloride 500 ml @ 250 mls/hr 1X ONCE IV Last administered on 10/03/18at 15:37; Start 10/03/18 at 16:00; Stop 10/03/18 at 17:59; Status DC Albuterol Sulfate (Ventolin Neb Soln) 2.5 mg PRN Q4HRS PRN INH SHORTNESS OF BREATH; Start 10/03/18 at 16:15 Alprazolam (Xanax) 1 mg QID PO Last administered on 10/05/18 08:04; Start 10/03/18 at 17:00 Aspirin (Nader Aspirin) 325 mg DAILY PO Last administered on 10/05/18 08:04; Start 10/04/18 at 09:00 Atorvastatin Calcium (Lipitor) 40 mg HS PO Last administered on 10/04/18 21:51; Start 10/03/18 at 21:00 Buspirone HCl (Buspar) 10 mg BID PO Last administered on 10/05/18 08:03; Start 10/03/18 at 21:00 Ergocalciferol (Vitamin D2) 50,000 unit WEEKLY PO ; Start 10/10/18 at 09:00 Furosemide (Lasix) 40 mg DAILY PO Last administered on 10/05/18 08:05; Start 10/04/18 at 09:00 Lidocaine (Lidoderm) 1 patch PRN Q12HRS PRN TP PAIN; Start 10/03/18 at 16:15 Non-Formulary Medication (Albuterol Sulfate (Albuterol Sulfate Neb Soln)) 1 vial QID NEB ; Start 10/03/18 at 17:00; Status UNV Fluticasone Propionate (Flonase) 2 spray DAILY NS Last administered on 08:05; Start 10/04/18 at 09:00 Budesonide (Pulmicort) 0.5 mg RTBID NEB Last administered on 10/05/18 07:29; Start 10/03/18 at 20:00 Gabapentin (Neurontin) 600 mg TID PO Last administered on 10/05/18 08:04; Start 10/03/18 at 21:00 Levothyroxine Sodium (Synthroid) 150 mcg DAILY06 PO Last administered on 10/05/18 06:00; Start 10/04/18 at 06:00 Magnesium Oxide (Magnesium Oxide) 400 mg QID PO Last administered on 7/22/19at 08:04; Start 10/03/18 at 17:00 Mirtazapine (Remeron Frances-Tab) 30 mg QHS PO Last administered on 10/04/18 21:52; Start 10/03/18 at 21:00 Olanzapine (ZyPREXA) 5 mg QHS PO Last administered on 10/04/18 21:52; Start 10/03/18 at 21:00 Fish Oil (Fish Oil) 1,000 mg DAILY PO Last administered on 10/05/18 08:05; Start 10/03/18 at 17:00 Pantoprazole Sodium (Protonix) 40 mg DAILYAC PO Last administered on 10/05/18 08:03; Start 10/04/18 at 07:30 Potassium Chloride (Klor-Con) 40 meq TIDWMEALS PO Last administered on 10/05/18 08:04; Start 10/03/18 at 17:00 Tizanidine HCl (Zanaflex) 4 mg QID PO Last administered on 10/05/18 08:04; Start 10/03/18 at 17:00 Enoxaparin Sodium (Lovenox 40mg Syringe) 40 mg Q24H SQ Last administered on 10/04/18at 17:40; Start 10/03/18 at 17:00 Albuterol Sulfate (Ventolin Neb Soln) 2.5 mg RTQID NEB Last administered on 10/05/18 07:30; Start 10/03/18 at 20:00 Sodium Chloride 1,000 ml @ 150 mls/hr Q6H40M IV Last administered on 10/04/18at 05:53; Start 10/03/18 at 18:00; Stop 10/04/18 at 10:38; Status DC Tramadol HCl (Ultram) 50 mg PRN Q6HRS PRN PO PAIN Last administered on 10/03/18 20:40; Start 10/03/18 at 20:30; Stop 10/04/18 at 12:15; Status DC Fentanyl Citrate (Fentanyl 2ml Vial) 25 mcg PRN Q4HRS PRN IV SEVERE PAIN 7-10 Last administered on 10/04/18at 07:39; Start 10/03/18 at 22:30; Stop 10/04/18 at 12:15; Status DC Lactobacillus Rhamnosus (Culturelle) 1 cap BID PO ; Start 10/04/18 at 09:00; Status Cancel Hydrocortisone Sodium Succinate (Solu-CORTEF) 100 mg Q8HRS IV Last administered on 10/05/18at 05:57; Start 10/04/18 at 08:30 Piperacillin Sod/ Tazobactam Sod 3.375 gm/Sodium Chloride 50 ml @ 100 mls/hr Q6HRS IV Last administered on 10/05/18at 05:57; Start 10/04/18 at 09:00 Vancomycin HCl 2 gm/Sodium Chloride 500 ml @ 250 mls/hr Q12H IV ; Start 10/04/18 at 08:15; Status UNV Vancomycin HCl (Vanco Per Pharmacy) 1 each PRN DAILY PRN MC SEE COMMENTS Last administered on 10/04/18at 08:37; Start 10/04/18 at 08:30 Vancomycin HCl 1.5 gm/Sodium Chloride 500 ml @ 250 mls/hr Q24H IV Last administered on 10/04/18at 15:48; Start 10/04/18 at 15:30 Vancomycin HCl (Vancomycin Trough Level) 1 each 1X ONCE MC ; Start 10/05/18 at 15:00; Stop 10/05/18 at 15:01 Lactobacillus Rhamnosus (Culturelle) 1 cap BID PO Last administered on 10/05/18at 08:04; Start 10/04/18 at 21:00 Sodium Chloride 1,000 ml @ 150 mls/hr Q6H40M IV Last administered on 10/05/18at 00:10; Start 10/04/18 at 10:45 Acetaminophen/ Hydrocodone Bitart (Lortab 7.5/325) 1 tab PRN Q6HRS PRN PO PAIN Last administered on 10/05/18at 06:02; Start 10/04/18 at 12:15 Active Scripts Active Cephalexin 500 Mg Capsule 1 Cap PO QID Lidocaine PATCH (Lidocaine) 1 Each Adh..patch 1 Each TP Q12HR PRN Keep patch on for 12 hours then removed for next 12 hours before placing new patch. Repeat as needed for back pain. Prednisone 20 Mg Tablet 2 Tab PO DAILY Start this medication tomorrow, Friday08/11/18 Levothyroxine Sodium 150 Mcg Tablet 1 Tab PO DAILY Reported Venlafaxine Hcl Er (Venlafaxine Hcl) 75 Mg Cap.er.24h 75 Mg PO DAILY Vitamin D2 (Ergocalciferol (Vitamin D2)) 50,000 Unit Capsule 1 Cap PO WEEKLY Flonase Allergy Relief (Fluticasone Propionate) 9.9 Ml [place].susp 2 Sprays NS D AILY Albuterol Sulfate Neb Soln (Albuterol Sulfate) 0.63 Mg/3 Ml Vial.neb 1 Vial NEB QID Detrol La (Tolterodine Tartrate) 2 Mg Cap.er.24h 1 Cap PO BID [Anusol-Hc] 25 Mg VAG HS Olanzapine 5 Mg Tablet 1 Tab PO QHS Buspirone Hcl 10 Mg Tablet 1 Tab PO BID Effexor Xr (Venlafaxine Hcl) 150 Mg Cap.er.24h 1 Cap PO DAILY Mirtazapine 30 Mg Tablet 1 Tab PO QHS Chantix (Varenicline Tartrate) 1 Mg Tablet 1 Mg PO BID Atorvastatin Calcium 20 Mg Tablet 40 Mg PO HS Vitamin E 400 Unit Capsule 400 Unit PO DAILY Fish Oil ([place]-3 Fatty Acids) 500 Mg Capsule 500 Mg PO DAILY Magnesium Oxide 400 Mg Tablet 400 Mg PO QID Xanax (Alprazolam) 1 Mg Tablet 1 Mg PO QID Lasix (Furosemide) 40 Mg Tablet 40 Mg PO DAILY Aspirin 325 Mg Tablet 325 Mg PO DAILY Gabapentin 600 Mg Tablet 600 Mg PO TID Tizanidine Hcl 4 Mg Tablet 4 Mg PO QID Omeprazole 20 Mg Tablet.dr 20 Mg PO DAILY07 Klor-Con (Potassium Chloride) 20 Meq Packet 40 Meq PO TID Proair Hfa Inhaler (Albuterol Sulfate) 8.5 Gm Hfa.aer.ad 8.5 Gm IH Q4HRS PRN Advair 500-50 Diskus (Fluticasone/Salmeterol) 1 Each Disk.w.dev 1 Each IH BID Vitals/I & O Vital Sign - Last 24 Hours 10/04/18 10/04/18 10/04/18 10/04/18 10:00 11:00 11:55 15:02 Pulse 76 79 Resp 18 16 B/P (MAP) 87/53 (64) 99/54 (69) Pulse Ox 95 95 96 O2 Delivery Nasal Cannula Nasal Cannula Nasal Cannula Nasal Cannula O2 Flow Rate 2.0 2.0 2.0 2.0 10/04/18 10/04/18 10/04/18 10/04/18 15:46 18:02 18:40 20:00 Temp 98.0 98.0 Pulse 83 Resp 18 B/P (MAP) 96/57 (70) Pulse Ox 95 O2 Delivery Nasal Cannula Nasal Cannula Nasal Cannula Nasal Cannula O2 Flow Rate 2.0 2.0 2.0 10/04/18 10/04/18 10/04/18 10/05/18 21:55 22:55 23:03 03:00 Temp 98.3 98.1 98.3 98.1 Pulse 80 70 Resp 20 20 17 17 B/P (MAP) 90/51 (64) 127/64 (85) Pulse Ox 97 97 O2 Delivery Nasal Cannula Nasal Cannula Nasal Cannula Nasal Cannula O2 Flow Rate 2.0 2.0 2.0 2.0 10/05/18 10/05/18 10/05/18 06:02 07:00 07:30 Temp 97.4 97.4 Pulse 71 Resp 22 16 B/P (MAP) 124/70 (88) Pulse Ox 95 95 O2 Delivery Nasal Cannula Nasal Cannula O2 Flow Rate 2.0 2.0 2.0 Intake and Output 10/04/18 10/04/18 10/05/18 15:00 23:00 07:00 Intake Total 1050 ml 1850 ml 1450 ml Output Total 1825 ml 1900 ml Balance -775 ml 1850 ml -450 ml NICOLAS HICKS MD Oct 05, 2018 09:24
--- NOTE | 2018-10-05 09:54 | NUR ---
IP: Pt is mrsa screen + requiring contact precautions.
--- NOTE | 2018-10-05 10:30 | PDOC ---
Infectious Disease Note Subjective: Subjective Pt transferred from icu to floor yesterday says feels better sob and cough are improving no f/c/n/v/inc ostomy output ROS: ROS Negative except for above. Vital Signs: Vital Signs Vital Signs Date Time Temp Pulse Resp B/P (MAP) Pulse Ox O2 Delivery O2 Flow Rate FiO2 10/05/18 08:00 Nasal Cannula 2.0 10/05/18 07:30 95 10/05/18 07:00 97.4 71 16 124/70 (88) 97.4 Physical Exam: PHYSICAL EXAM GENERAL: The patient propped up in bed, resting quietly, arouses to name. No apparent distress. HEENT: Pupils equally round and reactive. Oropharynx pink and dry. Dentures in place. NECK: Supple. LUNGS: Rhonchi, nonlabored. HEART: S1, S2 regular. ABDOMEN: Obese, soft, and nontender with bowel sounds present. Ileostomy without signs of complications. GENITOURINARY: Indwelling Drummond in place (10/03). EXTREMITIES: No gross edema or cyanosis. SKIN: Warm without signs of rash. NEUROLOGIC: Arouses easily to name and answers questions appropriately. Medications: Inpatient Meds: Current Medications Medications (Trade) Dose Ordered Sig/Joel Start Time Stop Time Status Last Admin Dose Admin Acetaminophen/ Hydrocodone Bitart (Lortab 7.5/325) 1 tab PRN Q6HRS PRN 10/04/18 12:15 10/05/18 06:02 1 TAB Albuterol Sulfate (Ventolin Neb Soln) 2.5 mg RTQID 10/03/18 20:00 10/05/18 07:30 2.5 MG Albuterol/ Ipratropium (Duoneb) 3 ml 1X ONCE 10/03/18 14:45 10/03/18 14:46 DC 10/03/18 14:52 3 ML Alprazolam (Xanax) 1 mg QID 10/03/18 17:00 10/05/18 08:04 1 MG Aspirin (Nader Aspirin) 325 mg DAILY 10/04/18 09:00 10/05/18 08:04 325 MG Atorvastatin Calcium (Lipitor) 40 mg HS 10/03/18 21:00 10/04/18 21:51 40 MG Budesonide (Pulmicort) 0.5 mg RTBID 10/03/18:00 10/05/18 07:29 0.5 MG Buspirone HCl (Buspar) 10 mg BID 10/03/18 21:00 10/05/18 08:03 10 MG Enoxaparin Sodium (Lovenox 40mg Syringe) 40 mg Q24H 10/03/18 17:00 10/04/18 17:40 40 MG Ergocalciferol (Vitamin D2) 50,000 unit WEEKLY 10/10/18 09:00 Fentanyl Citrate (Fentanyl 2ml Vial) 25 mcg PRN Q4HRS PRN 10/03/18 22:30 10/04/18 12:15 DC 10/04/18 07:39 25 MCG Fish Oil (Fish Oil) 1,000 mg DAILY 10/03/18 17:00 10/05/18 08:05 1,000 MG Fluticasone Propionate (Flonase) 2 spray DAILY 10/04/18 09:00 10/05/18 08:05 2 SPRAY Furosemide (Lasix) 40 mg DAILY 10/04/18 09:00 10/05/18 08:05 40 MG Gabapentin (Neurontin) 600 mg TID 10/03/18 21:00 10/05/18 08:04 600 MG Hydrocortisone Sodium Succinate (Solu-CORTEF) 100 mg Q8HRS 10/04/18 08:30 10/05/18 05:57 100 MG Lactobacillus Rhamnosus (Culturelle) 1 cap BID 10/04/18 21:00 10/05/18 08:04 1 CAP Levothyroxine Sodium (Synthroid) 150 mcg DAILY06 10/04/18 06:00 10/05/18 06:00 150 MCG Lidocaine (Lidoderm) 1 patch PRN Q12HRS PRN 10/03/18 16:15 Magnesium Oxide (Magnesium Oxide) 400 mg QID 10/03/18 17:00 10/05/18 08:04 400 MG Methylprednisolone Sodium Succinate (SOLU-Medrol 125MG VIAL) 125 mg 1X ONCE 10/03/18 14:45 10/03/18 14:46 DC 10/03/18 15:16 125 MG Mirtazapine (Remeron Frances-Tab) 30 mg QHS 10/03/18 21:00 10/04/18 21:52 30 MG Non-Formulary Medication (Albuterol Sulfate (Albuterol Sulfate Neb Soln)) 1 vial QID 10/03/18 17:00 UNV Non-Formulary Medication (Venlafaxine Hcl (Effexor Xr)) 1 cap DAILY 10/06/18 09:00 UNV Olanzapine (ZyPREXA) 5 mg QHS 10/03/18 21:00 10/04/18 21:52 5 MG Pantoprazole Sodium (Protonix) 40 mg DAILYAC 10/04/18 07:30 10/05/18 08:03 40 MG Piperacillin Sod/ Tazobactam Sod 3.375 gm/Sodium Chloride 50 ml @ 100 mls/hr Q6HRS 10/04/18 09:00 10/05/18 05:57 100 MLS/HR Potassium Chloride (Klor-Con) 40 meq TIDWMEALS 10/03/18 17:00 10/05/18 08:04 40 MEQ Sodium Chloride 1,000 ml @ 150 mls/hr Q6H40M 10/04/18 10:45 10/05/18 06:45 150 MLS/HR Tizanidine HCl (Zanaflex) 4 mg QID 10/03/18 17:00 10/05/18 08:04 4 MG Tramadol HCl (Ultram) 50 mg PRN Q6HRS PRN 10/03/18 20:30 10/04/18 12:15 DC 10/03/18 20:40 50 MG Vancomycin HCl (Vanco Per Pharmacy) 1 each PRN DAILY PRN 10/04/18 08:30 10/04/18 08:37 1 EACH Vancomycin HCl (Vancomycin Trough Level) 1 each 1X ONCE 10/05/18 15:00 10/05/18 15:01 Vancomycin HCl 1.5 gm/Sodium Chloride 500 ml @ 250 mls/hr Q24H 10/04/18 15:30 10/04/18 15:48 250 MLS/HR Vancomycin HCl 2 gm/Sodium Chloride 500 ml @ 250 mls/hr Q12H 10/04/18 08:15 UNV Venlafaxine HCl (Effexor Xr) 225 mg DAILY 10/05/18 11:00 Labs: Lab Laboratory Tests Test 10/04/18 11:20 Thyroxine (T4) 6.9 ug/dL (4.5-12.0) Objective: Assessment: 1. Leukocytosis and bandemia, now on steroids. 2. Chills and body aches. 3. Chronic indwelling Drummond with history of multidrug-resistant organism and recent treatment of recurrent urinary tract infection with reportedly Bactrim. 4. Chronic obstructive pulmonary disease, oxygen dependent. 5. Coronary artery disease. 6. History of seizures. 7. History of Clostridium difficile infection and methicillin-resistant Staphylococcus aureus. Plan: Plan of Care Continue Zosyn DC IV Vanc s/p steroids Cults nonrevealing so far PT and OT D/W sister at bedside D/W JUDSON POLLOCK MD Oct 05, 2018 10:29
[2018-10-05 11:00] VITALS: BP 111/60
[2018-10-05] MEDS ORDERED: VENLAFAXINE XR 37.5 MG CAP.ER.24H. PO SCH (11:00)
--- NOTE | 2018-10-05 11:28 | PDOC ---
PULMONARY PROGRESS NOTES Subjective NO SOA, WEAK Vitals Vital Signs Date Time Temp Pulse Resp B/P (MAP) Pulse Ox O2 Delivery O2 Flow Rate FiO2 10/05/18 11:00 97.7 73 12 111/60 (77) 95 Nasal Cannula 2.0 97.7 ROS: No Chest Pain, No Increase Cough General: Alert, No acute distress Lungs: Other (few crackles bases) Cardiovascular: S1 Abdomen: Soft, Other Neuro Exam: Alert Extremities: Other (trace edema) Skin: Warm Labs Laboratory Tests Test 10/03/18 13:47 10/03/18 13:59 10/03/18 14:20 10/03/18 16:20 Urine Collection Type Unknown Urine Color Yellow Urine Clarity Clear Urine pH 6.0 Urine Specific [place] 1.020 Urine Protein Negative mg/dL (NEG-TRACE) Urine Glucose (UA) Negative mg/dL (NEG) Urine Ketones (Stick) Negative mg/dL (NEG) Urine Blood Moderate (NEG) Urine Nitrite Positive (NEG) Urine Bilirubin Negative (NEG) Urine Urobilinogen Dipstick 0.2 mg/dL (0.2 mg/dL) Urine Leukocyte Esterase Large (NEG) Urine RBC 0 /HPF (0-2) Urine WBC Tntc /HPF (0-4) Urine Bacteria Many /HPF (0-FEW) O2 Saturation 90 % (92-99) Arterial Blood pH 7.42 (7.35-7.45) Arterial Blood pCO2 at Patient Temp 32 mmHg (35-46) Arterial Blood pO2 at Patient Temp 56 mmHg (65-108) Arterial Blood HCO3 20 mmol/L (21-28) Arterial Blood Base Excess -4 mmol/L (-3-3) FiO2 36 White Blood Count 13.9 x10^3/uL (4.0-11.0) Red Blood Count 3.84 x10^6/uL (3.50-5.40) Hemoglobin 12.1 g/dL (12.0-15.5) Hematocrit 35.2 % (36.0-47.0) Mean Corpuscular Volume 92 fL (79-100) Mean Corpuscular Hemoglobin 32 pg (25-35) Mean Corpuscular Hemoglobin Concent 34 g/dL (31-37) Red Cell Distribution Width 13.9 % (11.5-14.5) Platelet Count 404 x10^3/uL (140-400) Neutrophils (%) (Auto) 88 % (31-73) Lymphocytes (%) (Auto) 9 % (24-48) Monocytes (%) (Auto) 2 % (0-9) Eosinophils (%) (Auto) 0 % (0-3) Basophils (%) (Auto) 0 % (0-3) Neutrophils # (Auto) 12.3 x10^3/uL (1.8-7.7) Lymphocytes # (Auto) 1.3 x10^3/uL (1.0-4.8) Monocytes # (Auto) 0.3 x10^3/uL (0.0-1.1) Eosinophils # (Auto) 0.0 x10^3/uL (0.0-0.7) Basophils # (Auto) 0.0 x10^3/uL (0.0-0.2) Segmented Neutrophils % 44 % (35-66) Band Neutrophils % 46 % (0-9) Lymphocytes % 8 % (24-48) Monocytes % 1 % (0-10) Basophils % 1 % (0-3) Platelet Estimate Increased (ADEQUATE) Prothrombin Time 12.8 SEC (11.7-14.0) Prothromb Time International Ratio 1.0 (0.8-1.1) Sodium Level 123 mmol/L (136-145) Potassium Level 4.3 mmol/L (3.5-5.1) Chloride Level 90 mmol/L (98-107) Carbon Dioxide Level 21 mmol/L (21-32) Anion Gap 12 (6-14) Blood Urea Nitrogen 9 mg/dL (7-20) Creatinine 1.3 mg/dL (0.6-1.0) Estimated GFR (Cockcroft-Gault) 41.8 BUN/Creatinine Ratio 7 (6-20) Glucose Level 111 mg/dL (70-99) Lactic Acid Level 2.4 mmol/L (0.4-2.0) Calcium Level 9.4 mg/dL (8.5-10.1) Total Bilirubin 0.6 mg/dL (0.2-1.0) Aspartate Amino Transf (AST/SGOT) 22 U/L (15-37) Alanine Aminotransferase (ALT/SGPT) 24 U/L (14-59) Alkaline Phosphatase 115 U/L (46-116) Creatine Kinase 175 U/L (26-192) Troponin I Quantitative < 0.017 ng/mL (0.000-0.055) AQ-Iei-J-Type Natriuretic Peptide 1562 pg/mL (0-124) Total Protein 6.8 g/dL (6.4-8.2) Albumin 3.2 g/dL (3.4-5.0) Albumin/Globulin Ratio 0.9 (1.0-1.7) Lipase 71 U/L (73-393) Nasal Screen MRSA (PCR) Positive (Negative) Test 10/03/18 19:00 10/04/18 09:00 10/04/18 11:20 Lactic Acid Level 1.4 mmol/L (0.4-2.0) White Blood Count 20.8 x10^3/uL (4.0-11.0) Red Blood Count 3.38 x10^6/uL (3.50-5.40) Hemoglobin 10.5 g/dL (12.0-15.5) Hematocrit 31.7 % (36.0-47.0) Mean Corpuscular Volume 94 fL (79-100) Mean Corpuscular Hemoglobin 31 pg (25-35) Mean Corpuscular Hemoglobin Concent 33 g/dL (31-37) Red Cell Distribution Width 14.4 % (11.5-14.5) Platelet Count 379 x10^3/uL (140-400) Neutrophils (%) (Auto) 92 % (31-73) Lymphocytes (%) (Auto) 6 % (24-48) Monocytes (%) (Auto) 2 % (0-9) Eosinophils (%) (Auto) 0 % (0-3) Basophils (%) (Auto) 0 % (0-3) Neutrophils # (Auto) 19.2 x10^3/uL (1.8-7.7) Lymphocytes # (Auto) 1.3 x10^3/uL (1.0-4.8) Monocytes # (Auto) 0.3 x10^3/uL (0.0-1.1) Eosinophils # (Auto) 0.0 x10^3/uL (0.0-0.7) Basophils # (Auto) 0.0 x10^3/uL (0.0-0.2) Sodium Level 132 mmol/L (136-145) Potassium Level 4.3 mmol/L (3.5-5.1) Chloride Level 101 mmol/L (98-107) Carbon Dioxide Level 19 mmol/L (21-32) Anion Gap 12 (6-14) Blood Urea Nitrogen 12 mg/dL (7-20) Creatinine 0.9 mg/dL (0.6-1.0) Estimated GFR (Cockcroft-Gault) 63.9 Glucose Level 127 mg/dL (70-99) Calcium Level 9.2 mg/dL (8.5-10.1) MA-Yps-J-Type Natriuretic Peptide 2390 pg/mL (0-124) Thyroid Stimulating Hormone (TSH) 0.406 uIU/mL (0.358-3.74) Cortisol AM Sample 12.8 ug/dL (4.3-22.4) Thyroxine (T4) 6.9 ug/dL (4.5-12.0) Medications Active Scripts Medications Dose Route/Sig Max Daily Dose Days Date Category Dose Instructions Cephalexin 500 Mg Capsule 1 Cap PO QID 09/05/18 Rx Lidocaine PATCH (Lidocaine) 1 Each Adh..patch 1 Each TP Q12HR PRN 08/10/18 Rx Keep patch on for 12 hours then removed for next 12 hours before placing new patch. Repeat as needed for back pain. Prednisone 20 Mg Tablet 2 Tab PO DAILY 08/10/18 Rx Start this medication tomorrow, Friday08/11/18 Venlafaxine Hcl Er (Venlafaxine Hcl) 75 Mg Cap.er.24h 75 Mg PO DAILY 05/19/18 Reported Vitamin D2 (Ergocalciferol (Vitamin D2)) 50,000 Unit Capsule 1 Cap PO WEEKLY 06/09/17 Reported Flonase Allergy Relief (Fluticasone Propionate) 9.9 Ml [place].susp 2 Sprays NS DAILY 06/09/17 Reported Albuterol Sulfate Neb Soln (Albuterol Sulfate) 0.63 Mg/3 Ml Vial.neb 1 Vial NEB QID 06/09/17 Reported Detrol La (Tolterodine Tartrate) 2 Mg Cap.er.24h 1 Cap PO BID 06/09/17 Reported [Anusol-Hc] 25 Mg VAG HS 06/09/17 Reported Olanzapine 5 Mg Tablet 1 Tab PO QHS 06/09/17 Reported Buspirone Hcl 10 Mg Tablet 1 Tab PO BID 06/09/17 Reported Effexor Xr (Venlafaxine Hcl) 150 Mg Cap.er.24h 1 Cap PO DAILY 06/09/17 Reported Mirtazapine 30 Mg Tablet 1 Tab PO QHS 06/09/17 Reported Levothyroxine Sodium 150 Mcg Tablet 1 Tab PO DAILY 11/27/16 Rx Chantix (Varenicline Tartrate) 1 Mg Tablet 1 Mg PO BID 11/26/16 Reported Atorvastatin Calcium 20 Mg Tablet 40 Mg PO HS 04/26/13 Reported Vitamin E 400 Unit Capsule 400 Unit PO DAILY 04/26/13 Reported Fish Oil ([place]-3 Fatty Acids) 500 Mg Capsule 500 Mg PO DAILY 04/26/13 Reported Magnesium Oxide 400 Mg Tablet 400 Mg PO QID 04/26/13 Reported Xanax (Alprazolam) 1 Mg Tablet 1 Mg PO QID 04/26/13 Reported Lasix (Furosemide) 40 Mg Tablet 40 Mg PO DAILY 04/26/13 Reported Aspirin 325 Mg Tablet 325 Mg PO DAILY 04/26/13 Reported Gabapentin 600 Mg Tablet 600 Mg PO TID 04/26/13 Reported Tizanidine Hcl 4 Mg Tablet 4 Mg PO QID 04/26/13 Reported Omeprazole 20 Mg Tablet.dr 20 Mg PO DAILY07 04/26/13 Reported Klor-Con (Potassium Chloride) 20 Meq Packet 40 Meq PO TID 04/26/13 Reported Proair Hfa Inhaler (Albuterol Sulfate) 8.5 Gm Hfa.aer.ad 8.5 Gm IH Q4HRS PRN 04/26/13 Reported Advair 500-50 Diskus (Fluticasone/Salmeterol) 1 Each Disk.w.dev 1 Each IH BID 04/26/13 Reported Impression . 1. s/p Septic shock secondary to urinary tract infection. 2. Acute lung injury secondary to septic shock. 3. Hyponatremia in a hypotensive, but otherwise clinically euvolemic patient. In addition to other possibilities, I would consider adrenal insufficiency and thyroid disease. 4. Abnormal cxr with prom interstitial markings. last EF 55% Plan . PLAN: 1. bs abx 2. steroids 3. will do ct chest to better assess for interstitial infiltrates 4. taper hydrocortisone 5. Am cortisol reviewed 6. O2 MARQUIS COVARRUBIAS MD Oct 05, 2018 11:28
--- NOTE | 2018-10-05 12:50 | NUR ---
SW reviewed pt's medical chart and evaluated for potential dc needs. Pt lives at home alone and was admitted for sepsis. Pt is on two liters of O2 and PT/OT is pending. SW received referral stating pt has home health. SW will await PT/OT recommendations and proceed accordingly.
[2018-10-05 15:00] VITALS: BP 132/67
--- NOTE | 2018-10-05 15:01 | PDOC ---
CARDIO Progress Notes Date and Time Date of Service 10/05/18 Time of Evaluation 1440 Subjective Subjective: No Chest Pain, No Palpitations Vitals Vitals Vital Signs Date Time Temp Pulse Resp B/P (MAP) Pulse Ox O2 Delivery O2 Flow Rate FiO2 10/05/18 11:23 97 Nasal Cannula 2.0 10/05/18 11:00 97.7 73 12 111/60 (77) 97.7 Weight Weight [ ] Input and Output Intake and Output Intake and Output0 10/05/18 06:59 Intake Total 4350 ml Output Total 3800 ml Balance 550 ml Intake Oral 1950 ml IV Total 2400 ml Output Urine Total 3100 ml Stool Total 700 ml Microbiology Micro Microbiology 10/03/18 Blood Culture - Preliminary, Resulted NO GROWTH AFTER 2 DAYS Physical Exam HEENT: Neck Supple W Full Motion Chest: Symmetric LUNGS: Other (crackles) Heart: S1S2, RRR Abdomen: Soft N/T Extremities: No Edema Neurology: alert Assessment Assessment 1. Leukocytosis, lactic acidosis, sepsis, UTI; Antibiotics as per ID 2. Chest pain, atypical. Troponin series normal- AMI ruled out. EKG without acute changes. Consider outpatient ischemic eval. 3. CAD s/p previous PCI/stent; continue secondary prevention 4. Chronic urinary retention with smith 5. Mild acute on chronic diastolic HF. Recent echo with preserved LV systolic function 6. FELICIA on CKD; improved. 7. COPD; stable. Pulmonary medications. 8. Hyponatremia; improved 9. Hypothyroidism LA SCHULZ APRN Oct 05, 2018 15:01
--- NOTE | 2018-10-05 16:37 | NUR ---
Wound Care Wound care consult for multiple abrasions. All wounds are scabbed/healed. No other wounds noted on full skin inspection. WC will sign off at this time. Please reconsult if new wounds develop.
[2018-10-05] MEDS: ENOXAPARIN 40 MG/0.4 ML SYRINGE. SQ SCH (17:00)
--- NOTE | 2018-10-05 17:21 | RAD ---
CT study chest without contrast Clinical indications: Interstitial infiltrates seen on recent chest x-ray. History of sepsis and shortness of breath. COMPARISON: Recent chest x-ray dated October 03, 2018. Chest CTA dated January 31, 2017. TECHNIQUE: Noncontrast helical CT scanning of the chest was performed. Without IV contrast, the sensitivity to detect organ pathology is decreased. PQRS compliance Statement One or more of the following individualized dose reduction techniques were utilized for this study: 1. Automated exposure control 2. Adjustment of the mA and/or kV according to patient size 3. Use of iterative reconstruction technique FINDINGS: Mediastinal lymphadenopathy is again evident and has not changed significantly. Evaluation for hilar lymphadenopathy is difficult without IV contrast. No enlarged axillary lymphadenopathy is seen. No focal aneurysmal dilatation of the thoracic aorta is seen. Calcified atheromatous disease the coronary arteries is seen. Heart size is normal. No pericardial effusion is seen. Consolidative lung infiltrates are seen within both lower lobes. This is new. Less prominent lung infiltrate was seen within the posterior right lower lobe on the previous study. Less prominent consolidative infiltrates and groundglass lung infiltrates are seen within both upper lobes and the right middle lobe which are chronic. No pleural effusion or pneumothorax is seen. The proximal bronchial tree is patent. No lytic process is seen. The adrenal glands are not completely seen in this study. IMPRESSION: Consolidative bilateral lower lobe lung infiltrates which may represent aspiration pneumonitis or pneumonia. Electronically signed by: Alvin Kramer MD (10/05/2018 5:19 PM) [id number]
[2018-10-05 19:00] VITALS: BP 123/68
[2018-10-05] MEDS: ATORVASTATIN CALCIUM 20 MG TABLET PO SCH (21:11)
[2018-10-05] MEDS: MIRTAZAPINE 15 MG TAB.RAPDIS PO SCH (21:11)
[2018-10-05] MEDS: OLANZapine 5 MG TABLET PO SCH (21:12)
[2018-10-05 23:00] VITALS: BP 131/74
[2018-10-06] MEDS: PIPERACILLIN/TAZOBACTAM 3.375 GM in IV NORMAL SALINE 50ML 50 ML IV SCH ×5 (00:19→23:53)
[2018-10-06] MEDS: IV 1/2 NORMAL SALINE 1,000 ML IV SCH ×4 (02:45→23:53)
[2018-10-06 03:00] VITALS: BP 125/78
[2018-10-06] MEDS: HYDROcodone/APAP 7.5/325MG 1 TAB TABLET PO PRN ×2 (04:10→21:26)
[2018-10-06] MEDS: HYDROCORTISONE SOD SUCC/PF 100 MG/2 ML VIAL. IV SCH ×3 (05:01→21:27)
[2018-10-06] MEDS: LEVOTHYROXINE 150 MCG TABLET PO SCH (05:01)
[2018-10-06 07:00] VITALS: BP 156/86
[2018-10-06] MEDS: ALBUTEROL SULFATE 2.5 MG/3 ML NEBU. NEB SCH ×4 (07:14→19:40)
[2018-10-06] MEDS: BUDESONIDE 0.5 MG/2 ML NEBU. NEB SCH ×2 (07:15→19:38)
--- NOTE | 2018-10-06 08:11 | PDOC ---
PROGRESS NOTES Subjective Subjective Patient reports feeling a little better. Up to chair yesterday. Productive cough. Objective Objective Vital Signs Date Time Temp Pulse Resp B/P (MAP) Pulse Ox O2 Delivery O2 Flow Rate FiO2 10/06/18 07:15 98 Nasal Cannula 2.0 10/06/18 04:10 22 10/06/18 03:00 98.0 70 125/78 (94) 98.0 Intake and Output 10/06/18 06:59 Intake Total 1080 ml Output Total 7925 ml Balance -6845 ml Intake Oral 1080 ml Output Urine Total 7575 ml Stool Total 350 ml Physical Exam Abdomen: Normal bowel sounds, Soft, No tenderness Heart: Regular rate Extremities: No edema General: Alert, Oriented X3, No acute distress Lungs: Other (BS decreased throughout. Few crackles bilateral bases.) Assessment Assessment Problems Medical Problems: (1) Acute lung injury Status: Acute (2) Acute on chronic congestive heart failure Status: Acute (3) Bandemia Status: Acute (4) CAD (coronary artery disease) Status: Chronic (5) COPD (chronic obstructive pulmonary disease) Status: Chronic (6) HCAP (healthcare-associated pneumonia) Status: Acute (7) Hypokalemia Status: Acute (8) Hypothyroidism Status: Chronic (9) Hypoxia Status: Acute (10) Lumbar back pain Status: Chronic (11) Renal insufficiency Status: Acute (12) Sepsis Status: Acute (13) Septic shock due to urinary tract infection Status: Acute (14) UTI (urinary tract infection) due to urinary indwelling Drummond catheter Status: Acute Plan Plan of Care 1. Sepsis with UTI - improving. Preliminary urine cx with GNR. Continue Zosyn per ID. 2. COPD with acute lung injury - CT chest showed pneumonitis vs pneumonia bilateral bases. Not hypoxic on O2. Continue nebs, further tx per Pulmonary. 3. hyponatremia - improved on last lab. Pulmonary tapering steroids. 4. chronic back pain - stable with her usual po pain medication. 5. chronic anxiety and depression - stable, continue home medications. 6. debility - up to chair yesterday. Was not able to ambulate with PT as she did not have her hip brace. Wearing this now and willing to work with therapy, wants to go home when ready for discharge. Comment Review of Relevant I have reviewed the following items chris (where applicable) has been applied. Labs Laboratory Tests Test 10/04/18 09:00 10/04/18 11:20 White Blood Count 20.8 x10^3/uL (4.0-11.0) Red Blood Count 3.38 x10^6/uL (3.50-5.40) Hemoglobin 10.5 g/dL (12.0-15.5) Hematocrit 31.7 % (36.0-47.0) Mean Corpuscular Volume 94 fL (79-100) Mean Corpuscular Hemoglobin 31 pg (25-35) Mean Corpuscular Hemoglobin Concent 33 g/dL (31-37) Red Cell Distribution Width 14.4 % (11.5-14.5) Platelet Count 379 x10^3/uL (140-400) Neutrophils (%) (Auto) 92 % (31-73) Lymphocytes (%) (Auto) 6 % (24-48) Monocytes (%) (Auto) 2 % (0-9) Eosinophils (%) (Auto) 0 % (0-3) Basophils (%) (Auto) 0 % (0-3) Neutrophils # (Auto) 19.2 x10^3/uL (1.8-7.7) Lymphocytes # (Auto) 1.3 x10^3/uL (1.0-4.8) Monocytes # (Auto) 0.3 x10^3/uL (0.0-1.1) Eosinophils # (Auto) 0.0 x10^3/uL (0.0-0.7) Basophils # (Auto) 0.0 x10^3/uL (0.0-0.2) Sodium Level 132 mmol/L (136-145) Potassium Level 4.3 mmol/L (3.5-5.1) Chloride Level 101 mmol/L (98-107) Carbon Dioxide Level 19 mmol/L (21-32) Anion Gap 12 (6-14) Blood Urea Nitrogen 12 mg/dL (7-20) Creatinine 0.9 mg/dL (0.6-1.0) Estimated GFR (Cockcroft-Gault) 63.9 Glucose Level 127 mg/dL (70-99) Calcium Level 9.2 mg/dL (8.5-10.1) FV-Jaq-Y-Type Natriuretic Peptide 2390 pg/mL (0-124) Thyroid Stimulating Hormone (TSH) 0.406 uIU/mL (0.358-3.74) Cortisol AM Sample 12.8 ug/dL (4.3-22.4) Thyroxine (T4) 6.9 ug/dL (4.5-12.0) Microbiology 10/03/18 Blood Culture - Preliminary, Resulted NO GROWTH AFTER 2 DAYS 10/03/18 - Final, Resulted 10/03/18 - Final, Resulted 10/03/18 - Final, Resulted 10/03/18 - Final, Resulted 10/03/18 - Final, Resulted 10/03/18 Gram Stain Evaluation - Final, Resulted 10/03/18 Sputum Culture, Resulted Pending 10/03/18 Urine Culture - Preliminary, Resulted 10/03/18 Urine Culture Result 1 (CEM) - Preliminary, Resulted Medications Current Medications Albuterol/ Ipratropium (Duoneb) 3 ml 1X ONCE NEB Last administered on 10/03/18at 14:52; Start 10/03/18 at 14:45; Stop 10/03/18 at 14:46; Status DC Methylprednisolone Sodium Succinate (SOLU-Medrol 125MG VIAL) 125 mg 1X ONCE IV Last administered on 10/03/18at 15:16; Start 10/03/18 at 14:45; Stop 10/03/18 at 14:46; Status DC Sodium Chloride 1,000 ml @ 1,000 mls/hr 1X ONCE IV Last administered on 10/03/18at 14:40; Start 10/03/18 at 14:45; Stop 10/03/18 at 15:44; Status DC Sodium Chloride 1,000 ml @ 1,000 mls/hr 1X ONCE IV Last administered on 10/03/18at 15:45; Start 10/03/18 at 15:15; Stop 10/03/18 at 16:14; Status DC Piperacillin Sod/ Tazobactam Sod 3.375 gm/Sodium Chloride 50 ml @ 100 mls/hr 1X ONCE IV Last administered on 10/03/18at 15:35; Start 10/03/18 at 15:30; Stop 10/03/18 at 15:59; Status DC Vancomycin HCl 250 ml @ 250 mls/hr 1X ONCE IV ; Start 10/03/18 at 15:15; Stop 10/03/18 at 16:14; Status UNV Vancomycin HCl 2 gm/Sodium Chloride 500 ml @ 250 mls/hr 1X ONCE IV Last administered on 10/03/18at 15:37; Start 10/03/18 at 16:00; Stop 10/03/18 at 17:59; Status DC Albuterol Sulfate (Ventolin Neb Soln) 2.5 mg PRN Q4HRS PRN INH SHORTNESS OF BREATH; Start 10/03/18 at 16:15 Alprazolam (Xanax) 1 mg QID PO Last administered on 10/05/18at 21:11; Start 10/03/18 at 17:00 Aspirin (Nader Aspirin) 325 mg DAILY PO Last administered on 10/05/18 08:04; Start 10/04/18 at 09:00 Atorvastatin Calcium (Lipitor) 40 mg HS PO Last administered on 10/05/18 21:11; Start 10/03/18 at 21:00 Buspirone HCl (Buspar) 10 mg BID PO Last administered on 10/05/18at 21:12; Start 10/03/18 at 21:00 Ergocalciferol (Vitamin D2) 50,000 unit WEEKLY PO ; Start 10/10/18 at 09:00 Furosemide (Lasix) 40 mg DAILY PO Last administered on 10/05/18at 08:05; Start 10/04/18 at 09:00 Lidocaine (Lidoderm) 1 patch PRN Q12HRS PRN TP PAIN; Start 10/03/18 at 16:15 Non-Formulary Medication (Albuterol Sulfate (Albuterol Sulfate Neb Soln)) 1 vial QID NEB ; Start 10/03/18 at 17:00; Status UNV Fluticasone Propionate (Flonase) 2 spray DAILY NS Last administered on 10/05/18at 08:05; Start 10/04/18 at 09:00 Budesonide (Pulmicort) 0.5 mg RTBID NEB Last administered on 10/06/18 07:15; Start 10/03/18 at 20:00 Gabapentin (Neurontin) 600 mg TID PO Last administered on 10/05/18at 21:11; Start 10/03/18 at 21:00 Levothyroxine Sodium (Synthroid) 150 mcg DAILY06 PO Last administered on 10/06/18at 05:01; Start 10/04/18 at 06:00 Magnesium Oxide (Magnesium Oxide) 400 mg QID PO Last administered on 10/05/18 21:11; Start 10/03/18 at 17:00 Mirtazapine (Remeron Frances-Tab) 30 mg QHS PO Last administered on 10/05/18 21:11; Start 10/03/18 at 21:00 Olanzapine (ZyPREXA) 5 mg QHS PO Last administered on 10/05/18 21:12; Start 10/03/18 at 21:00 Fish Oil (Fish Oil) 1,000 mg DAILY PO Last administered on 10/05/18 08:05; Start 10/03/18 at 17:00 Pantoprazole Sodium (Protonix) 40 mg DAILYAC PO Last administered on 10/05/18 08:03; Start 10/04/18 at 07:30 Potassium Chloride (Klor-Con) 40 meq TIDWMEALS PO Last administered on 10/05/18 17:00; Start 10/03/18 at 17:00 Tizanidine HCl (Zanaflex) 4 mg QID PO Last administered on 10/05/18 21:11; St art 10/03/18 at 17:00 Enoxaparin Sodium (Lovenox 40mg Syringe) 40 mg Q24H SQ Last administered on 10/05/18 17:00; Start 10/03/18 at 17:00 Albuterol Sulfate (Ventolin Neb Soln) 2.5 mg RTQID NEB Last administered on 10/06/18 07:14; Start 10/03/18 at 20:00 Sodium Chloride 1,000 ml @ 150 mls/hr Q6H40M IV Last administered on 10/04/18at 05:53; Start 10/03/18 at 18:00; Stop 10/04/18 at 10:38; Status DC Tramadol HCl (Ultram) 50 mg PRN Q6HRS PRN PO PAIN Last administered on 10/03/18at 20:40; Start 10/03/18 at 20:30; Stop 10/04/18 at 12:15; Status DC Fentanyl Citrate (Fentanyl 2ml Vial) 25 mcg PRN Q4HRS PRN IV SEVERE PAIN 7-10 Last administered on 10/04/18 07:39; Start 10/03/18 at 22:30; Stop 10/04/18 at 12:15; Status DC Lactobacillus Rhamnosus (Culturelle) 1 cap BID PO ; Start 10/04/18 at 09:00; Status Cancel Hydrocortisone Sodium Succinate (Solu-CORTEF) 100 mg Q8HRS IV Last administered on 10/05/18at 05:57; Start 10/04/18 at 08:30; Stop 10/05/18 at 11:29; Status DC Piperacillin Sod/ Tazobactam Sod 3.375 gm/Sodium Chloride 50 ml @ 100 mls/hr Q6HRS IV Last administered on 10/06/18at 05:02; Start 10/04/18 at 09:00 Vancomycin HCl 2 gm/Sodium Chloride 500 ml @ 250 mls/hr Q12H IV ; Start 10/04/18 at 08:15; Status UNV Vancomycin HCl (Vanco Per Pharmacy) 1 each PRN DAILY PRN MC SEE COMMENTS Last administered on 10/04/18at 08:37; Start 10/04/18 at 08:30; Stop 10/05/18 at 11:18; Status DC Vancomycin HCl 1.5 gm/Sodium Chloride 500 ml @ 250 mls/hr Q24H IV Last administered on 10/04/18at 15:48; Start 10/04/18 at 15:30; Stop 10/05/18 at 11:17; Status DC Vancomycin HCl (Vancomycin Trough Level) 1 each 1X ONCE MC ; Start 10/05/18 at 15:00; Stop 10/05/18 at 15:00; Status DC Lactobacillus Rhamnosus (Culturelle) 1 cap BID PO Last administered on 10/05/18at 21:11; Start 10/04/18 at 21:00 Sodium Chloride 1,000 ml @ 150 mls/hr Q6H40M IV Last administered on 10/05/18at 07:00; Start 10/04/18 at 10:45 Acetaminophen/ Hydrocodone Bitart (Lortab 7.5/325) 1 tab PRN Q6HRS PRN PO PAIN Last administered on 10/06/18at 04:10; Start 10/04/18 at 12:15 Non-Formulary Medication (Venlafaxine Hcl (Effexor Xr)) 1 cap DAILY PO ; Start 10/06/18 at 09:00; Status UNV Venlafaxine HCl (Effexor Xr) 225 mg DAILY PO Last administered on 10/05/18at 12:09; Start 10/05/18 at 11:00; Stop 10/05/18 at 21:30; Status DC Hydrocortisone Sodium Succinate (Solu-CORTEF) 50 mg Q8HRS IV Last administered on 10/06/18at 05:01; Start 10/05/18 at 14:00 Venlafaxine HCl (Effexor) 75 mg TID PO ; Start 10/06/18 at 09:00 Active Scripts Active Cephalexin 500 Mg Capsule 1 Cap PO QID Lidocaine PATCH (Lidocaine) 1 Each Adh..patch 1 Each TP Q12HR PRN Keep patch on for 12 hours then removed for next 12 hours before placing new patch. Repeat as needed for back pain. Prednisone 20 Mg Tablet 2 Tab PO DAILY Start this medication tomorrow, Friday08/11/18 Levothyroxine Sodium 150 Mcg Tablet 1 Tab PO DAILY Reported Venlafaxine Hcl Er (Venlafaxine Hcl) 75 Mg Cap.er.24h 75 Mg PO DAILY Vitamin D2 (Ergocalciferol (Vitamin D2)) 50,000 Unit Capsule 1 Cap PO WEEKLY Flonase Allergy Relief (Fluticasone Propionate) 9.9 Ml [place].susp 2 Sprays NS DA CHRISTINE Albuterol Sulfate Neb Soln (Albuterol Sulfate) 0.63 Mg/3 Ml Vial.neb 1 Vial NEB QID Detrol La (Tolterodine Tartrate) 2 Mg Cap.er.24h 1 Cap PO BID [Anusol-Hc] 25 Mg VAG HS Olanzapine 5 Mg Tablet 1 Tab PO QHS Buspirone Hcl 10 Mg Tablet 1 Tab PO BID Effexor Xr (Venlafaxine Hcl) 150 Mg Cap.er.24h 1 Cap PO DAILY Mirtazapine 30 Mg Tablet 1 Tab PO QHS Chantix (Varenicline Tartrate) 1 Mg Tablet 1 Mg PO BID Atorvastatin Calcium 20 Mg Tablet 40 Mg PO HS Vitamin E 400 Unit Capsule 400 Unit PO DAILY Fish Oil ([place]-3 Fatty Acids) 500 Mg Capsule 500 Mg PO DAILY Magnesium Oxide 400 Mg Tablet 400 Mg PO QID Xanax (Alprazolam) 1 Mg Tablet 1 Mg PO QID Lasix (Furosemide) 40 Mg Tablet 40 Mg PO DAILY Aspirin 325 Mg Tablet 325 Mg PO DAILY Gabapentin 600 Mg Tablet 600 Mg PO TID Tizanidine Hcl 4 Mg Tablet 4 Mg PO QID Omeprazole 20 Mg Tablet.dr 20 Mg PO DAILY07 Klor-Con (Potassium Chloride) 20 Meq Packet 40 Meq PO TID Proair Hfa Inhaler (Albuterol Sulfate) 8.5 Gm Hfa.aer.ad 8.5 Gm IH Q4HRS PRN Advair 500-50 Diskus (Fluticasone/Salmeterol) 1 Each Disk.w.dev 1 Each IH BID Vitals/I & O Vital Sign - Last 24 Hours 10/05/18 10/05/18 10/05/18 10/05/18 11:00 11:23 15:00 15:22 Temp 97.7 97.8 97.7 97.8 Pulse 73 68 Resp 12 14 B/P (MAP) 111/60 (77) 132/67 (88) Pulse Ox 95 97 100 99 O2 Delivery Nasal Cannula Nasal Cannula Nasal Cannula Nasal Cannula O2 Flow Rate 2.0 2.0 2.0 2.0 10/05/18 10/05/18 10/05/18 10/05/18 19:00 20:00 20:12 21:41 Temp 98.1 98.1 Pulse 69 Resp 18 20 B/P (MAP) 123/68 (86) Pulse Ox 100 99 O2 Delivery Nasal Cannula Nasal Cannula Nasal Cannula O2 Flow Rate 2.0 2.0 10/05/18 10/05/18 10/06/18 10/06/18 22:41 23:00 03:00 04:10 Temp 98.3 98.0 98.3 98.0 Pulse 69 70 Resp 20 16 16 22 B/P (MAP) 131/74 (93) 125/78 (94) Pulse Ox 99 99 O2 Delivery Nasal Cannula Nasal Cannula 10/06/18 07:15 Pulse Ox 98 O2 Delivery Nasal Cannula O2 Flow Rate 2.0 l Intake and Output 10/05/18 10/05/18 10/06/18 14:59 22:59 06:59 Intake Total 480 ml 600 ml Output Total 2150 ml 2375 ml 3400 ml Balance -1670 ml -1775 ml -3400 ml NICOLAS HICKS MD Oct 06, 2018 08:11
--- NOTE | 2018-10-06 08:48 | PDOC ---
Infectious Disease Note Subjective Subjective Feeling better + productive cough Denies SOA/CP/CHRISTINA/F/C/N/V/D Vital Sign Vital Signs Vital Signs Date Time Temp Pulse Resp B/P (MAP) Pulse Ox O2 Delivery O2 Flow Rate FiO2 10/06/18 07:15 98 Nasal Cannula 2.0 10/06/18 07:00 97.9 72 18 156/86 (109) 97.9 Physical Exam PHYSICAL EXAM GENERAL: Propped up in bed, alert, NAD HEENT: Oropharynx pink and dry. Dentures in place. NECK: Supple. LUNGS: Diminished aeration and + rhonchi right lung field, nonlabored HEART: S1, S2 regular. ABDOMEN: Obese, soft, and nontender with bowel sounds present. Ileostomy without signs of complications. GENITOURINARY: Indwelling Drummond in place (10/03). EXTREMITIES: No gross edema or cyanosis. SKIN: Warm without signs of rash. NEUROLOGIC: Alert and answering questions appropriately Labs Lab Chest CT Consolidative bilateral lower lobe lung infiltrates which may represent aspiration pneumonitis or pneumonia. Micro 10/03/18 Blood Culture - Preliminary, Resulted NO GROWTH AFTER 2 DAYS 10/03. URINE CULTURE RES 1 Preliminary Gram negative rods 10/03. Sputum GRAM STAIN RESULT 2 Final Comment Few gram positive rods. GRAM STAIN RESULT 3 Final Comment Few gram positive cocci Objective Assessment Leukocytosis and bandemia. Now on steroids Chills and body aches -better Chronic indwelling Drummond, last changed 10/03. Pyruia and GNR -Recent h/o recurrent UTI Tx cephalexin and then Bactrim -h/o MDR Serratia and E. coli (FERNANDEZ-S) UTIs. Pulmonary infiltrates on CT. sputum GPR & GPC,,,,,, Hemophilus species COPD, O2 dependent 2 L baseline at night. CAD h/o seizures h/o C. diff, MRSA Doxy allergy Plan Plan of Care Continue Zosyn Last dose vanc 10/04 steroids f/u cultures PT and OT Attending Co-Sign The patient was seen and interviewed as well as examined at the bedside. The chart was reviewed. The case was discussed. Agree with the plan of care. RA LOUIS APRN Oct 06, 2018 08:48 BONNIE CANADA MD Oct 06, 2018 10:28
[2018-10-06] MEDS: FLUTICASONE 50MCG/NASAL SPRAY 16GM BOTTLE. NS SCH (09:00)
[2018-10-06] MEDS ORDERED: NON FORMULARY ITEM (Venlafaxine Hcl (Effexor Xr) 1 CAP) PO SCH (09:00)
[2018-10-06] MEDS: VENLAFAXINE 75 MG TABLET. PO SCH ×3 (09:14→21:25)
[2018-10-06] MEDS: GABAPENTIN 300 MG CAPSULE. PO SCH ×3 (09:14→21:26)
[2018-10-06] MEDS: MAGNESIUM OXIDE 400 MG TABLET PO SCH ×4 (09:14→21:26)
[2018-10-06] MEDS: busPIRone 10 MG TABLET. PO SCH ×2 (09:14→21:25)
[2018-10-06] MEDS: OMEGA-3 FATTY ACIDS/FISH OIL 1,000 MG CAPSULE. PO SCH (09:14)
[2018-10-06] MEDS: ASPIRIN 325 MG TABLET PO SCH (09:14)
[2018-10-06] MEDS: LACTOBACILLUS RHAMNOSUS GG 1 CAPSULE. PO SCH ×2 (09:14→21:26)
[2018-10-06] MEDS: tiZANidine 4 MG TABLET. PO SCH ×4 (09:15→21:26)
[2018-10-06] MEDS: PANTOPRAZOLE 40 MG TABLET.DR. PO SCH (09:15)
[2018-10-06] MEDS: POTASSIUM CHLORIDE 20 MEQ TABLET.ER. PO SCH ×3 (09:15→16:42)
[2018-10-06] MEDS: FUROSEMIDE 40 MG TABLET. PO SCH (09:15)
[2018-10-06] MEDS: ALPRAZolam 1 MG TABLET PO SCH ×4 (09:15→21:26)
--- NOTE | 2018-10-06 10:15 | PDOC ---
PULMONARY PROGRESS NOTES Subjective NO SOA, WEAK Vitals Vital Signs Date Time Temp Pulse Resp B/P (MAP) Pulse Ox O2 Delivery O2 Flow Rate FiO2 10/06/18 08:00 Nasal Cannula 2.0 10/06/18 07:15 98 10/06/18 07:00 97.9 72 18 156/86 (109) 97.9 ROS: No Chest Pain, No Increase Cough General: Alert, No acute distress Lungs: Other (few crackles bases) Cardiovascular: S1 Abdomen: Soft, Other Neuro Exam: Alert Extremities: Other (trace edema) Skin: Warm Labs Laboratory Tests Test 10/04/18 11:20 Thyroxine (T4) 6.9 ug/dL (4.5-12.0) Medications Active Scripts Medications Dose Route/Sig Max Daily Dose Days Date Category Dose Instructions Cephalexin 500 Mg Capsule 1 Cap PO QID 09/05/18 Rx Lidocaine PATCH (Lidocaine) 1 Each Adh..patch 1 Each TP Q12HR PRN 08/10/18 Rx Keep patch on for 12 hours then removed for next 12 hours before placing new patch. Repeat as needed for back pain. Prednisone 20 Mg Tablet 2 Tab PO DAILY 08/10/18 Rx Start this medication tomorrow, Friday08/11/18 Venlafaxine Hcl Er (Venlafaxine Hcl) 75 Mg Cap.er.24h 75 Mg PO DAILY 05/19/18 Reported Vitamin D2 (Ergocalciferol (Vitamin D2)) 50,000 Unit Capsule 1 Cap PO WEEKLY 06/09/17 Reported Flonase Allergy Relief (Fluticasone Propionate) 9.9 Ml [place].susp 2 Sprays NS DAILY 06/09/17 Reported Albuterol Sulfate Neb Soln (Albuterol Sulfate) 0.63 Mg/3 Ml Vial.neb 1 Vial NEB QID 06/09/17 Reported Detrol La (Tolterodine Tartrate) 2 Mg Cap.er.24h 1 Cap PO BID 06/09/17 Reported [Anusol-Hc] 25 Mg VAG HS 06/09/17 Reported Olanzapine 5 Mg Tablet 1 Tab PO QHS 06/09/17 Reported Buspirone Hcl 10 Mg Tablet 1 Tab PO BID 06/09/17 Reported Effexor Xr (Venlafaxine Hcl) 150 Mg Cap.er.24h 1 Cap PO DAILY 06/09/17 Reported Mirtazapine 30 Mg Tablet 1 Tab PO QHS 06/09/17 Reported Levothyroxine Sodium 150 Mcg Tablet 1 Tab PO DAILY 11/27/16 Rx Chantix (Varenicline Tartrate) 1 Mg Tablet 1 Mg PO BID 11/26/16 Reported Atorvastatin Calcium 20 Mg Tablet 40 Mg PO HS 04/26/13 Reported Vitamin E 400 Unit Capsule 400 Unit PO DAILY 04/26/13 Reported Fish Oil ([place]-3 Fatty Acids) 500 Mg Capsule 500 Mg PO DAILY 04/26/13 Reported Magnesium Oxide 400 Mg Tablet 400 Mg PO QID 04/26/13 Reported Xanax (Alprazolam) 1 Mg Tablet 1 Mg PO QID 04/26/13 Reported Lasix (Furosemide) 40 Mg Tablet 40 Mg PO DAILY 04/26/13 Reported Aspirin 325 Mg Tablet 325 Mg PO DAILY 04/26/13 Reported Gabapentin 600 Mg Tablet 600 Mg PO TID 04/26/13 Reported Tizanidine Hcl 4 Mg Tablet 4 Mg PO QID 04/26/13 Reported Omeprazole 20 Mg Tablet.dr 20 Mg PO DAILY07 04/26/13 Reported Klor-Con (Potassium Chloride) 20 Meq Packet 40 Meq PO TID 04/26/13 Reported Proair Hfa Inhaler (Albuterol Sulfate) 8.5 Gm Hfa.aer.ad 8.5 Gm IH Q4HRS PRN 04/26/13 Reported Advair 500-50 Diskus (Fluticasone/Salmeterol) 1 Each Disk.w.dev 1 Each IH BID 04/26/[address] CHEST Consolidative bilateral lower lobe lung infiltrates which may represent aspiration pneumonitis or pneumonia. Impression . 1. s/p Septic shock secondary to urinary tract infection./ PNEUMONIA poa 2. Acute lung injury secondary to septic shock. 3. Abnormal ct chest c/w basal pneumonia 4. Abnormal cxr with prom interstitial markings. last EF 55%, no CHF on ct chest Plan . PLAN: 1. bs abx 2. steroids 3. sputum/ and urine positive. f/u final cultures 4. taper hydrocortisone 5. Am cortisol reviewed 6. O2 MARQUIS COVARRUBIAS MD Oct 06, 2018 10:15
[2018-10-06 11:00] VITALS: BP 150/78
[2018-10-06 15:00] VITALS: BP 154/80
[2018-10-06] MEDS: ENOXAPARIN 40 MG/0.4 ML SYRINGE. SQ SCH (16:42)
[2018-10-06 19:00] VITALS: BP 108/61
[2018-10-06] MEDS: OLANZapine 5 MG TABLET PO SCH (21:25)
[2018-10-06] MEDS: ATORVASTATIN CALCIUM 20 MG TABLET PO SCH (21:25)
[2018-10-06] MEDS: MIRTAZAPINE 15 MG TAB.RAPDIS PO SCH (21:25)
[2018-10-06 23:00] VITALS: BP 128/70
[2018-10-07 03:00] VITALS: BP 134/66
[2018-10-07] MEDS: HYDROcodone/APAP 7.5/325MG 1 TAB TABLET PO PRN ×3 (03:18→16:34)
[2018-10-07 05:11] LABS: CALCIUM 8.2 mg/dL (8.5-10.1); GFR 56.6; POTASSIUM 4.1 mmol/L (3.5-5.1)
[2018-10-07] MEDS: PIPERACILLIN/TAZOBACTAM 3.375 GM in IV NORMAL SALINE 50ML 50 ML IV SCH (06:21)
[2018-10-07] MEDS: LEVOTHYROXINE 150 MCG TABLET PO SCH (06:21)
[2018-10-07] MEDS: HYDROCORTISONE SOD SUCC/PF 100 MG/2 ML VIAL. IV SCH (06:27)
[2018-10-07 07:00] VITALS: BP 167/88
[2018-10-07] MEDS: ALBUTEROL SULFATE 2.5 MG/3 ML NEBU. NEB SCH ×3 (07:32→15:35)
[2018-10-07] MEDS: BUDESONIDE 0.5 MG/2 ML NEBU. NEB SCH (07:32)
[2018-10-07] MEDS: IV 1/2 NORMAL SALINE 1,000 ML IV SCH (08:05)
[2018-10-07] MEDS: ALPRAZolam 1 MG TABLET PO SCH ×3 (08:06→16:34)
[2018-10-07] MEDS: VENLAFAXINE 75 MG TABLET. PO SCH ×2 (08:06→13:20)
[2018-10-07] MEDS: MAGNESIUM OXIDE 400 MG TABLET PO SCH ×3 (08:07→16:34)
[2018-10-07] MEDS: tiZANidine 4 MG TABLET. PO SCH (08:07)
[2018-10-07] MEDS: PANTOPRAZOLE 40 MG TABLET.DR. PO SCH (08:07)
[2018-10-07] MEDS: ASPIRIN 325 MG TABLET PO SCH (08:07)
[2018-10-07] MEDS: LACTOBACILLUS RHAMNOSUS GG 1 CAPSULE. PO SCH (08:07)
[2018-10-07] MEDS: OMEGA-3 FATTY ACIDS/FISH OIL 1,000 MG CAPSULE. PO SCH (08:07)
[2018-10-07] MEDS: FUROSEMIDE 40 MG TABLET. PO SCH (08:07)
[2018-10-07] MEDS: busPIRone 10 MG TABLET. PO SCH (08:08)
[2018-10-07] MEDS: POTASSIUM CHLORIDE 20 MEQ TABLET.ER. PO SCH ×3 (08:08→16:34)
[2018-10-07] MEDS: GABAPENTIN 300 MG CAPSULE. PO SCH ×2 (08:08→13:21)
--- NOTE | 2018-10-07 08:30 | PDOC ---
PROGRESS NOTES Subjective Subjective Patient c/o soreness in mouth, thinks she may be getting thrush. Otherwise feels better and hopes to be able to be discharged soon. Objective Objective Vital Signs Date Time Temp Pulse Resp B/P (MAP) Pulse Ox O2 Delivery O2 Flow Rate FiO2 10/07/18 07:33 98 Nasal Cannula 2.0 10/07/18 04:18 20 10/07/18 03:00 98.9 69 134/66 (88) 98.9 Intake and Output 10/07/18 06:59 Intake Total 3900 ml Output Total 7400 ml Balance -3500 ml Intake Oral 2900 ml IV Total 1000 ml Output Urine Total 6800 ml Stool Total 600 ml Physical Exam Abdomen: Normal bowel sounds, Soft, No tenderness Heart: Regular rate Extremities: No edema General: Alert, Oriented X3, No acute distress Lungs: Other (few crackles in bases otherwise CTA) Assessment Assessment Problems Medical Problems: (1) Acute lung injury Status: Acute (2) Acute on chronic congestive heart failure Status: Acute (3) Bandemia Status: Acute (4) CAD (coronary artery disease) Status: Chronic (5) COPD (chronic obstructive pulmonary disease) Status: Chronic (6) HCAP (healthcare-associated pneumonia) Status: Acute (7) Hypokalemia Status: Acute (8) Hypothyroidism Status: Chronic (9) Hypoxia Status: Acute (10) Lumbar back pain Status: Chronic (11) Renal insufficiency Status: Acute (12) Sepsis Status: Acute (13) Septic shock due to urinary tract infection Status: Acute (14) UTI (urinary tract infection) due to urinary indwelling Drummond catheter Status: Acute Plan Plan of Care 1. Sepsis with UTI - much improved. Urine culture shows Klebsiella. Continue tx per ID. 2. pneumonia with acute lung injury and COPD - improving. Sputum culture shows H flu but also MRSA. Continue tx per Pulmonary and ID. Sats good on 2L O2. 3. hyponatremia - resolved, electrolytes WNL. Discontinue IVF, tapering down steroid. 4. chronic back pain - stable with her usual po pain medication. 5. chronic anxiety and depression - controlled with her home medications. 6. debility - doing well with therapies, appears to be at her baseline mobility and should be able to return home without difficulty. Comment Review of Relevant I have reviewed the following items chris (where applicable) has been applied. Labs Laboratory Tests Test 10/07/18 03:10 Sodium Level 141 mmol/L (136-145) Potassium Level 4.1 mmol/L (3.5-5.1) Chloride Level 106 mmol/L (98-107) Carbon Dioxide Level 25 mmol/L (21-32) Anion Gap 10 (6-14) Blood Urea Nitrogen 9 mg/dL (7-20) Creatinine 1.0 mg/dL (0.6-1.0) Estimated GFR (Cockcroft-Gault) 56.6 Glucose Level 98 mg/dL (70-99) Calcium Level 8.2 mg/dL (8.5-10.1) Laboratory Tests Test 10/07/18 03:10 Sodium Level 141 mmol/L (136-145) Potassium Level 4.1 mmol/L (3.5-5.1) Chloride Level 106 mmol/L (98-107) Carbon Dioxide Level 25 mmol/L (21-32) Anion Gap 10 (6-14) Blood Urea Nitrogen 9 mg/dL (7-20) Creatinine 1.0 mg/dL (0.6-1.0) Estimated GFR (Cockcroft-Gault) 56.6 Glucose Level 98 mg/dL (70-99) Calcium Level 8.2 mg/dL (8.5-10.1) Microbiology 10/03/18 Blood Culture - Preliminary, Resulted NO GROWTH AFTER 3 DAYS 10/03/18 - Final, Complete 10/03/18 - Final, Complete 10/03/18 - Final, Complete 10/03/18 - Final, Complete 10/03/18 - Final, Complete 10/03/18 Gram Stain Evaluation - Final, Complete 10/03/18 Sputum Culture - Final, Complete 10/03/18 Sputum Result 1 - Final, Complete 10/03/18 Sputum Result 2 - Final, Complete 10/03/18 - Final, Complete 10/03/18 Antimicrobic Susceptibility - Final, Complete 10/03/18 Urine Culture - Final, Complete 10/03/18 Urine Culture Result 1 (CEM) - Final, Complete 10/03/18 Antimicrobic Susceptibility - Final, Complete Medications Current Medications Albuterol/ Ipratropium (Duoneb) 3 ml 1X ONCE NEB Last administered on 10/03/18at 14:52; Start 10/03/18 at 14:45; Stop 10/03/18 at 14:46; Status DC Methylprednisolone Sodium Succinate (SOLU-Medrol 125MG VIAL) 125 mg 1X ONCE IV Last administered on 10/03/18at 15:16; Start 10/03/18 at 14:45; Stop 10/03/18 at 14:46; Status DC Sodium Chloride 1,000 ml @ 1,000 mls/hr 1X ONCE IV Last administered on 10/03/18at 14:40; Start 10/03/18 at 14:45; Stop 10/03/18 at 15:44; Status DC Sodium Chloride 1,000 ml @ 1,000 mls/hr 1X ONCE IV Last administered on 10/03/18at 15:45; Start 10/03/18 at 15:15; Stop 10/03/18 at 16:14; Status DC Piperacillin Sod/ Tazobactam Sod 3.375 gm/Sodium Chloride 50 ml @ 100 mls/hr 1X ONCE IV Last administered on 10/03/18at 15:35; Start 10/03/18 at 15:30; Stop 10/03/18 at 15:59; Status DC Vancomycin HCl 250 ml @ 250 mls/hr 1X ONCE IV ; Start 10/03/18 at 15:15; Stop 10/03/18 at 16:14; Status UNV Vancomycin HCl 2 gm/Sodium Chloride 500 ml @ 250 mls/hr 1X ONCE IV Last administered on 10/03/18at 15:37; Start 10/03/18 at 16:00; Stop 10/03/18 at 17:59; Status DC Albuterol Sulfate (Ventolin Neb Soln) 2.5 mg PRN Q4HRS PRN INH SHORTNESS OF BREATH; Start 10/03/18 at 16:15 Alprazolam (Xanax) 1 mg QID PO Last administered on 10/07/18at 08:06; Start 10/03/18 at 17:00 Aspirin (Nader Aspirin) 325 mg DAILY PO Last administered on 10/07/18at 08:07; Start 10/04/18 at 09:00 Atorvastatin Calcium (Lipitor) 40 mg HS PO Last administered on 10/06/18at 21:25; Start 10/03/18 at 21:00 Buspirone HCl (Buspar) 10 mg BID PO Last administered on 10/07/18at 08:08; Start 10/03/18 at 21:00 Ergocalciferol (Vitamin D2) 50,000 unit WEEKLY PO ; Start 10/10/18 at 09:00 Furosemide (Lasix) 40 mg DAILY PO Last administered on 10/07/18 08:07; Start 10/04/18 at 09:00 Lidocaine (Lidoderm) 1 patch PRN Q12HRS PRN TP PAIN; Start 10/03/18 at 16:15 Non-Formulary Medication (Albuterol Sulfate (Albuterol Sulfate Neb Soln)) 1 vial QID NEB ; Start 10/03/18 at 17:00; Status UNV Fluticasone Propionate (Flonase) 2 spray DAILY NS Last administered on 10/06/18 09:00; Start 10/04/18 at 09:00 Budesonide (Pulmicort) 0.5 mg RTBID NEB Last administered on 10/07/18 07:32; Start 10/03/18 at 20:00 Gabapentin (Neurontin) 600 mg TID PO Last administered on 10/07/18 08:08; Start 10/03/18 at 21:00 Levothyroxine Sodium (Synthroid) 150 mcg DAILY06 PO Last administered on 10/07/18 06:21; Start 10/04/18 at 06:00 Magnesium Oxide (Magnesium Oxide) 400 mg QID PO Last administered on 10/07/18 08:07; Start 10/03/18 at 17:00 Mirtazapine (Remeron Frances-Tab) 30 mg QHS PO Last administered on 10/06/18 21:25; Start 10/03/18 at 21:00 Olanzapine (ZyPREXA) 5 mg QHS PO Last administered on 10/06/18 21:25; Start 10/03/18 at 21:00 Fish Oil (Fish Oil) 1,000 mg DAILY PO Last administered on 10/07/18 08:07; Start 10/03/18 at 17:00 Pantoprazole Sodium (Protonix) 40 mg DAILYAC PO Last administered on 10/07/18 08:07; Start 10/04/18 at 07:30 Potassium Chloride (Klor-Con) 40 meq TIDWMEALS PO Last administered on 10/07/18 08:08; Start 10/03/18 at 17:00 Tizanidine HCl (Zanaflex) 4 mg QID PO Last administered on 10/07/18at 08:07; Start 10/03/18 at 17:00 Enoxaparin Sodium (Lovenox 40mg Syringe) 40 mg Q24H SQ Last administered on 10/06/18at 16:42; Start 10/03/18 at 17:00 Albuterol Sulfate (Ventolin Neb Soln) 2.5 mg RTQID NEB Last administered on 10/07/18at 07:32; Start 10/03/18 at 20:00 Sodium Chloride 1,000 ml @ 150 mls/hr Q6H40M IV Last administered on 10/04/18at 05:53; Start 10/03/18 at 18:00; Stop 10/04/18 at 10:38; Status DC Tramadol HCl (Ultram) 50 mg PRN Q6HRS PRN PO PAIN Last administered on 10/03/18at 20:40; Start 10/03/18 at 20:30; Stop 10/04/18 at 12:15; Status DC Fentanyl Citrate (Fentanyl 2ml Vial) 25 mcg PRN Q4HRS PRN IV SEVERE PAIN 7-10 Last administered on 10/04/18at 07:39; Start 10/03/18 at 22:30; Stop 10/04/18 at 12:15; Status DC Lactobacillus Rhamnosus (Culturelle) 1 cap BID PO ; Start 10/04/18 at 09:00; Status Cancel Hydrocortisone Sodium Succinate (Solu-CORTEF) 100 mg Q8HRS IV Last administered on 10/05/18at 05:57; Start 10/04/18 at 08:30; Stop 10/05/18 at 11:29; Status DC Piperacillin Sod/ Tazobactam Sod 3.375 gm/Sodium Chloride 50 ml @ 100 mls/hr Q6HRS IV Last administered on 10/07/18at 06:21; Start 10/04/18 at 09:00 Vancomycin HCl 2 gm/Sodium Chloride 500 ml @ 250 mls/hr Q12H IV ; Start 10/04/18 at 08:15; Status UNV Vancomycin HCl (Vanco Per Pharmacy) 1 each PRN DAILY PRN MC SEE COMMENTS Last administered on 10/04/18at 08:37; Start 10/04/18 at 08:30; Stop 10/05/18 at 11:18; Status DC Vancomycin HCl 1.5 gm/Sodium Chloride 500 ml @ 250 mls/hr Q24H IV Last administered on 10/04/18at 15:48; Start 10/04/18 at 15:30; Stop 10/05/18 at 11:17; Status DC Vancomycin HCl (Vancomycin Trough Level) 1 each 1X ONCE MC ; Start 10/05/18 at 15:00; Stop 10/05/18 at 15:00; Status DC Lactobacillus Rhamnosus (Culturelle) 1 cap BID PO Last administered on 10/07/18at 08:07; Start 10/04/18 at 21:00 Sodium Chloride 1,000 ml @ 150 mls/hr Q6H40M IV Last administered on 10/07/18at 08:05; Start 10/04/18 at 10:45 Acetaminophen/ Hydrocodone Bitart (Lortab 7.5/325) 1 tab PRN Q6HRS PRN PO PAIN Last administered on 10/07/18at 03:18; Start 10/04/18 at 12:15 Non-Formulary Medication (Venlafaxine Hcl (Effexor Xr)) 1 cap DAILY PO ; Start 10/06/18 at 09:00; Status UNV Venlafaxine HCl (Effexor Xr) 225 mg DAILY PO Last administered on 10/05/18at 12:09; Start 10/05/18 at 11:00; Stop 10/05/18 at 21:30; Status DC Hydrocortisone Sodium Succinate (Solu-CORTEF) 50 mg Q8HRS IV Last administered on 10/06/18at 05:01; Start 10/05/18 at 14:00; Stop 10/06/18 at 10:16; Status DC Venlafaxine HCl (Effexor) 75 mg TID PO Last administered on 10/07/18at 08:06; Start 10/06/18 at 09:00 Hydrocortisone Sodium Succinate (Solu-CORTEF) 25 mg Q8HRS IV Last administered on 10/07/18at 06:27; Start 10/06/18 at 14:00 Active Scripts Active Cephalexin 500 Mg Capsule 1 Cap PO QID Lidocaine PATCH (Lidocaine) 1 Each Adh..patch 1 Each TP Q12HR PRN Keep patch on for 12 hours then removed for next 12 hours before placing new patch. Repeat as needed for back pain. Prednisone 20 Mg Tablet 2 Tab PO DAILY Start this medication tomorrow, Friday08/11/18 Levothyroxine Sodium 150 Mcg Tablet 1 Tab PO DAILY Reported Venlafaxine Hcl Er (Venlafaxine Hcl) 75 Mg Cap.er.24h 75 Mg PO DAILY Vitamin D2 (Ergocalciferol (Vitamin D2)) 50,000 Unit Capsule 1 Cap PO WEEKLY Flonase Allergy Relief (Fluticasone Propionate) 9.9 Ml [place].susp 2 Sprays NS DAILY Albuterol Sulfate Neb Soln (Albuterol Sulfate) 0.63 Mg/3 Ml Vial.neb 1 Vial NEB QID Detrol La (Tolterodine Tartrate) 2 Mg Cap.er.24h 1 Cap PO BID [Anusol-Hc] 25 Mg VAG HS Olanzapine 5 Mg Tablet 1 Tab PO QHS Buspirone Hcl 10 Mg Tablet 1 Tab PO BID Effexor Xr (Venlafaxine Hcl) 150 Mg Cap.er.24h 1 Cap PO DAILY Mirtazapine 30 Mg Tablet 1 Tab PO QHS Chantix (Varenicline Tartrate) 1 Mg Tablet 1 Mg PO BID Atorvastatin Calcium 20 Mg Tablet 40 Mg PO HS Vitamin E 400 Unit Capsule 400 Unit PO DAILY Fish Oil ([place]-3 Fatty Acids) 500 Mg Capsule 500 Mg PO DAILY Magnesium Oxide 400 Mg Tablet 400 Mg PO QID Xanax (Alprazolam) 1 Mg Tablet 1 Mg PO QID Lasix (Furosemide) 40 Mg Tablet 40 Mg PO DAILY Aspirin 325 Mg Tablet 325 Mg PO DAILY Gabapentin 600 Mg Tablet 600 Mg PO TID Tizanidine Hcl 4 Mg Tablet 4 Mg PO QID Omeprazole 20 Mg Tablet.dr 20 Mg PO DAILY07 Klor-Con (Potassium Chloride) 20 Meq Packet 40 Meq PO TID Proair Hfa Inhaler (Albuterol Sulfate) 8.5 Gm Hfa.aer.ad 8.5 Gm IH Q4HRS PRN Advair 500-50 Diskus (Fluticasone/Salmeterol) 1 Each Disk.w.dev 1 Each IH BID Vitals/I & O Vital Sign - Last 24 Hours 10/06/18 10/06/18 10/06/18 10/06/18 11:00 11:30 15:00 15:29 Temp 97.8 97.8 97.8 97.8 Pulse 73 75 Resp 18 18 B/P (MAP) 150/78 (102) 154/80 (104) Pulse Ox 98 98 98 O2 Delivery Nasal Cannula Nasal Cannula Nasal Cannula Nasal Cannula O2 Flow Rate 2.0 2.0 2.0 2.0 10/06/18 10/06/18 10/06/18 10/06/18 19:00 19:40 19:40 20:00 Temp 97.7 97.7 Pulse 74 Resp 20 B/P (MAP) 108/61 (77) Pulse Ox 100 O2 Delivery Nasal Cannula Nasal Cannula Nasal Cannula Nasal Cannula O2 Flow Rate 2.0 2.0 2.0 2.0 10/06/18 10/06/18 10/07/18 10/07/18 21:26 23:00 03:00 03:18 Temp 98.4 98.9 98.4 98.9 Pulse 71 69 Resp 20 20 20 20 B/P (MAP) 128/70 (89) 134/66 (88) Pulse Ox 98 97 O2 Delivery Nasal Cannula Nasal Cannula Nasal Cannula Room Air O2 Flow Rate 2.0 2.0 10/07/18 10/07/18 04:18 07:33 Resp 20 Pulse Ox 98 O2 Delivery Nasal Cannula Nasal Cannula O2 Flow Rate 2.0 Intake and Output 10/06/18 10/06/18 10/07/18 14:59 22:59 06:59 Intake Total 1100 ml 500 ml 2300 ml Output Total 1050 ml 3250 ml 3100 ml Balance 50 ml -2750 ml -800 ml NICOLAS HICKS MD Oct 07, 2018 08:30
[2018-10-07] MEDS: NYSTATIN 100,000 UNITS/ML 5 ML ORAL.SUSP. SWSW SCH ×3 (09:04→16:34)
[2018-10-07] MEDS: FLUTICASONE 50MCG/NASAL SPRAY 16GM BOTTLE. NS SCH (09:04)
[2018-10-07 10:25] VITALS: BP 147/76
--- NOTE | 2018-10-07 10:29 | PDOC ---
Infectious Disease Note Subjective Subjective Hoping to go home soon Feeling much better Minimal phlegm production Denies F/C/S/pain/SOA Vital Sign Vital Signs Vital Signs Date Time Temp Pulse Resp B/P (MAP) Pulse Ox O2 Delivery O2 Flow Rate FiO2 10/07/18 08:00 Nasal Cannula 2.0 10/07/18 07:33 98 10/07/18 07:00 97.3 71 16 167/88 (114) 97.3 Physical Exam PHYSICAL EXAM GENERAL: Propped up in bed, alert, smiling HEENT: Oropharynx pink and dry. Dentures in place. NECK: Supple. LUNGS: improved aeration, nonlabored HEART: S1, S2 regular. ABDOMEN: Obese, soft, and nontender with bowel sounds present. Ileostomy without signs of complications. GENITOURINARY: Indwelling Drum[place] in place (10/03). EXTREMITIES: No gross edema or cyanosis. SKIN: Warm without signs of rash. NEUROLOGIC: Alert and answering questions appropriately Labs Lab Laboratory Tests Test 10/07/18 03:10 Sodium Level 141 mmol/L (136-145) Potassium Level 4.1 mmol/L (3.5-5.1) Chloride Level 106 mmol/L (98-107) Carbon Dioxide Level 25 mmol/L (21-32) Anion Gap 10 (6-14) Blood Urea Nitrogen 9 mg/dL (7-20) Creatinine 1.0 mg/dL (0.6-1.0) Estimated GFR (Cockcroft-Gault) 56.6 Glucose Level 98 mg/dL (70-99) Calcium Level 8.2 mg/dL (8.5-10.1) Micro 10/03/18 Blood Culture - Preliminary, Resulted NO GROWTH AFTER 2 DAYS 10/03. URINE CULTURE RES 1 Final Klebsiella pneumoniae Greater than 100,000 colony forming units per mL Susceptibility profile is consistent with a probable ESBL. ANTIMICROBIAL SUSCEPTIBILITY Final Comment S = Susceptible; I = Intermediate; R = Resistant P = Positive; N = Negative MICS are expressed in micrograms per mL Antibiotic RSLT#1 RSLT#2 RSLT#3 RSLT#4 Amoxicillin/Clavulanic Acid S =8 Ampicillin R>=32 Cefazolin R>=64 Cefepime S =2 Ceftriaxone R>=64 Cefuroxime R>=64 Ciprofloxacin S<=0.25 Ertapenem S<=0.12 Gentamicin R>=16 Imipenem S<=0.25 Levofloxacin S =1 Meropenem S<=0.25 Nitrofurantoin S<=16 Piperacillin/Tazobactam S<=4 Tetracycline R>=16 Tobramycin S =4 Trimethoprim/Sulfa R>=320 10/03. Sputum Haemophilus influenzae, not type B Methicillin - resistant Staphylococcus aureus 3+ Objective Assessment Leukocytosis and bandemia. Now on steroids Chills and body aches -better Chronic indwelling [place], last changed 10/03. Pyruia and Klebsiella -Recent h/o recurrent UTI Tx cephalexin and then Bactrim -h/o MDR Serratia and E. coli (FERNANDEZ-S) UTIs. Pulmonary infiltrates on CT. sputum - H. 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 CAD h/o seizures h/o C. diff, MRSA Doxy allergy Plan Plan of Care Zyvox Switch Zosyn to cipro Rx written and placed in chart Ok to discharge from ID standpoint Attending Co-Sign The patient was seen and interviewed as well as examined at the bedside. The chart was reviewed. The case was discussed. Agree with the plan of care. RA LOUIS APRN Oct 07, 2018 10:29 BONNIE CANADA MD Oct 07, 2018 10:32
[2018-10-07] MEDS ORDERED: LINEZOLID 600 MG TABLET PO SCH (10:30)
[2018-10-07] MEDS ORDERED: CIPROFLOXACIN HCL 250 MG TABLET. PO SCH (11:00)
--- NOTE | 2018-10-07 12:08 | PDOC ---
PULMONARY PROGRESS NOTES Subjective NO SOA, BETTER Vitals Vital Signs Date Time Temp Pulse Resp B/P (MAP) Pulse Ox O2 Delivery O2 Flow Rate FiO2 10/07/18 11:37 94 Room Air 10/07/18 10:25 97.7 77 18 147/76 (99) 97.7 10/07/18 08:00 2.0 ROS: No Chest Pain, No Increase Cough General: Alert, No acute distress Lungs: Other (few crackles bases) Cardiovascular: S1 Abdomen: Soft, Other Neuro Exam: Alert Extremities: Other (trace edema) Skin: Warm Labs Laboratory Tests Test 10/07/18 03:10 Sodium Level 141 mmol/L (136-145) Potassium Level 4.1 mmol/L (3.5-5.1) Chloride Level 106 mmol/L (98-107) Carbon Dioxide Level 25 mmol/L (21-32) Anion Gap 10 (6-14) Blood Urea Nitrogen 9 mg/dL (7-20) Creatinine 1.0 mg/dL (0.6-1.0) Estimated GFR (Cockcroft-Gault) 56.6 Glucose Level 98 mg/dL (70-99) Calcium Level 8.2 mg/dL (8.5-10.1) Laboratory Tests Test 10/07/18 03:10 Sodium Level 141 mmol/L (136-145) Potassium Level 4.1 mmol/L (3.5-5.1) Chloride Level 106 mmol/L (98-107) Carbon Dioxide Level 25 mmol/L (21-32) Anion Gap 10 (6-14) Blood Urea Nitrogen 9 mg/dL (7-20) Creatinine 1.0 mg/dL (0.6-1.0) Estimated GFR (Cockcroft-Gault) 56.6 Glucose Level 98 mg/dL (70-99) Calcium Level 8.2 mg/dL (8.5-10.1) Medications Active Scripts Medications Dose Route/Sig Max Daily Dose Days Date Category Dose Instructions Cephalexin 500 Mg Capsule 1 Cap PO QID 09/05/18 Rx Lidocaine PATCH (Lidocaine) 1 Each Adh..patch 1 Each TP Q12HR PRN 08/10/18 Rx Keep patch on for 12 hours then removed for next 12 hours before placing new patch. Repeat as needed for back pain. Prednisone 20 Mg Tablet 2 Tab PO DAILY 5/27/19 Rx Start this medication tomorrow, Friday08/11/18 Venlafaxine Hcl Er (Venlafaxine Hcl) 75 Mg Cap.er.24h 75 Mg PO DAILY 05/19/18 Reported Vitamin D2 (Ergocalciferol (Vitamin D2)) 50,000 Unit Capsule 1 Cap PO WEEKLY 06/09/17 Reported Flonase Allergy Relief (Fluticasone Propionate) 9.9 Ml [place].susp 2 Sprays NS DAILY 06/09/17 Reported Albuterol Sulfate Neb Soln (Albuterol Sulfate) 0.63 Mg/3 Ml Vial.neb 1 Vial NEB QID 06/09/17 Reported Detrol La (Tolterodine Tartrate) 2 Mg Cap.er.24h 1 Cap PO BID 06/09/17 Reported [Anusol-Hc] 25 Mg VAG HS 06/09/17 Reported Olanzapine 5 Mg Tablet 1 Tab PO QHS 06/09/17 Reported Buspirone Hcl 10 Mg Tablet 1 Tab PO BID 06/09/17 Reported Effexor Xr (Venlafaxine Hcl) 150 Mg Cap.er.24h 1 Cap PO DAILY 06/09/17 Reported Mirtazapine 30 Mg Tablet 1 Tab PO QHS 06/09/17 Reported Levothyroxine Sodium 150 Mcg Tablet 1 Tab PO DAILY 11/27/16 Rx Chantix (Varenicline Tartrate) 1 Mg Tablet 1 Mg PO BID 11/26/16 Reported Atorvastatin Calcium 20 Mg Tablet 40 Mg PO HS 04/26/13 Reported Vitamin E 400 Unit Capsule 400 Unit PO DAILY 04/26/13 Reported Fish Oil ([place]-3 Fatty Acids) 500 Mg Capsule 500 Mg PO DAILY 04/26/13 Reported Magnesium Oxide 400 Mg Tablet 400 Mg PO QID 04/26/13 Reported Xanax (Alprazolam) 1 Mg Tablet 1 Mg PO QID 04/26/13 Reported Lasix (Furosemide) 40 Mg Tablet 40 Mg PO DAILY 04/26/13 Reported Aspirin 325 Mg Tablet 325 Mg PO DAILY 04/26/13 Reported Gabapentin 600 Mg Tablet 600 Mg PO TID 04/26/13 Reported Tizanidine Hcl 4 Mg Tablet 4 Mg PO QID 04/26/13 Reported Omeprazole 20 Mg Tablet.dr 20 Mg PO DAILY07 04/26/13 Reported Klor-Con (Potassium Chloride) 20 Meq Packet 40 Meq PO TID 04/26/13 Reported Proair Hfa Inhaler (Albuterol Sulfate) 8.5 Gm Hfa.aer.ad 8.5 Gm IH Q4HRS PRN 04/26/13 Reported Advair 500-50 Diskus (Fluticasone/Salmeterol) 1 Each Disk.w.dev 1 Each IH BID 04/26/[address] CHEST Consolidative bilateral lower lobe lung infiltrates which may represent aspiration pneumonitis or pneumonia. Impression . 1. s/p Septic shock secondary to urinary tract infection./ PNEUMONIA poa 2. Acute lung injury secondary to septic shock. 3. Abnormal ct chest c/w basal pneumonia 4. Abnormal cxr with prom interstitial markings. last EF 55%, no CHF on ct chest Plan . PLAN: 1. ON po ABX now 2. off O2 3. sputum/ and urine positive. f/u final cultures 4. dc hydrocortisone 5. doing better ok with home d/w MARQUIS PEARL MD Oct 07, 2018 12:08
--- NOTE | 2018-10-07 13:12 | NUR ---
SS following for discharge planning. SS reviewed pt chart. Pt is from home and is currently on room air. PT recommended home with assistance. SS will continue to follow for discharge planning.
[2018-10-07 15:00] VITALS: BP 137/62
[2018-10-07] MEDS: ENOXAPARIN 40 MG/0.4 ML SYRINGE. SQ SCH (16:35)
[2018-10-07] MEDS ORDERED: LINE600T PO (18:11)
[2018-10-07] MEDS ORDERED: NYST100054 SWSW (18:11)
[2018-10-07] MEDS ORDERED: CIPR250T30 PO (18:11)
--- NOTE | 2018-10-07 18:15 | SNU/HH DC ---
DISCHARGE WITH HOME HEALTH DISCHARGE INFORMATION: Discharge Date: Oct 07, 2018 Final Diagnosis: Problems Medical Problems: (1) Acute lung injury Status: Acute (2) Acute on chronic congestive heart failure Status: Acute (3) Bandemia Status: Acute (4) CAD (coronary artery disease) Status: Chronic (5) COPD (chronic obstructive pulmonary disease) Status: Chronic (6) HCAP (healthcare-associated pneumonia) Status: Acute (7) Hypokalemia Status: Acute (8) Hypothyroidism Status: Chronic (9) Hypoxia Status: Acute (10) Lumbar back pain Status: Chronic (11) Renal insufficiency Status: Acute (12) Sepsis Status: Acute (13) Septic shock due to urinary tract infection Status: Acute (14) UTI (urinary tract infection) due to urinary indwelling Drummond catheter Status: Acute Condition on Discharge: Stable CODE STATUS: Code Status: Full HOME HEALTH: Face to Face: I certify this patient is under my care and that I, or a nurse practitioner or physician's assistant store manager working with me, had a face to face encounter that meets the physician face to face encounter requirements with this patient on []. Correction For: Ostomy Care, Urinary Catheter Care RN For Eval/Treatment: Yes Physical Therapy For: Evalulation/Treatment Occupational Therapy For: Evaluation/Treatment Home Health Aide For: Self-care Pt Meets Homebound Status: Poor coordination w/ amb., Limited distance walking POST DISCHARGE ORDERS: Activity Instructions for Disc: Resume previous activity Weight Bearing Status after Di: No restrictions Bathing Instructions: Shower-keep dressing dry, No Tub Bath until see Wound/Incision Care: Keep wound/cast CDI CHECKS AFTER DISCHARGE: Checks after discharge: Check blood press - daily, Check your Temp as needed TREATMENT/EQUIPMENT ORDERS: Adaptive Equipment Issued: None CERTIFICATION STATEMENT: Certification Statement: Certification Statement: Based on the above finding, I certify that this patient is confined to the home and needs intermittent long term care, physical therapy and/or speech therapy, or continues to need occupational therapy.~ This patient is under my care, and I have initiated the establishment of the plan of care.~ This patient will be followed by myself or a community physician who will periodically review the plan of care. Home Meds Active Scripts Nystatin (NYSTATIN) 100,000 Unit/1 Ml Oral.susp, 5 ML SWSW [id number] for thrush for 10 Days, #200 MISC Prov:MARINELLI,TIFFANI M MD 10/07/18 Linezolid (ZYVOX) 600 Mg Tablet, 600 MG PO BID for MRSA for 14 Days, #28 TAB Prov:TIFFANI MARINELLI MD 10/07/18 Ciprofloxacin Hcl (CIPRO) 250 Mg Tablet, 500 MG PO BID for uti for 7 Days, #28 TAB Prov:TIFFANI MARINELLI MD 10/07/18 Lidocaine (Lidocaine PATCH ) 1 Each Adh..patch, 1 EACH TP Q12HR PRN for PAIN, #6 PATCH Keep patch on for 12 hours then removed for next 12 hours before placing new patch. Repeat as needed for back pain. Prov:TIFFANI DILL DO 08/10/18 Levothyroxine Sodium (LEVOTHYROXINE SODIUM) 150 Mcg Tablet, 1 TAB PO DAILY, #30 TAB 5 Refills Prov:NICOLAS HICKS MD 11/27/16 Reported Medications Venlafaxine Hcl (VENLAFAXINE HCL ER) 75 Mg Cap.er.24h, 75 MG PO DAILY, CAP.SR 05/19/18 Ergocalciferol (Vitamin D2) (VITAMIN D2) 50,000 Unit Capsule, 1 CAP PO WEEKLY, #4 CAP 5 Refills 06/09/17 Fluticasone Propionate (Flonase Allergy Relief) 9.9 Ml [place].susp, 2 SPRAYS NS DAILY, BOTTLE 06/09/17 Albuterol Sulfate (ALBUTEROL SULFATE NEB SOLN) 0.63 Mg/3 Ml Vial.neb, 1 VIAL NEB QID, #150 ML 1 Refill 06/09/17 Tolterodine Tartrate (DETROL LA) 2 Mg Cap.er.24h, 1 CAP PO BID, #30 CAP 2 Refills 06/09/17 Olanzapine (OLANZAPINE) 5 Mg Tablet, 1 TAB PO QHS, #30 TAB 2 Refills 06/09/17 Buspirone Hcl (BUSPIRONE HCL) 10 Mg Tablet, 1 TAB PO BID, #60 TAB 1 Refill 06/09/17 Venlafaxine Hcl (EFFEXOR XR) 150 Mg Cap.er.24h, 1 CAP PO DAILY, #30 CAP 1 Refill 06/09/17 Mirtazapine (MIRTAZAPINE) 30 Mg Tablet, 1 TAB PO QHS, #30 TAB 1 Refill 06/09/17 Varenicline Tartrate (CHANTIX) 1 Mg Tablet, 1 MG PO BID, TAB 11/26/16 Atorvastatin Calcium (ATORVASTATIN CALCIUM) 20 Mg Tablet, 40 MG PO HS 04/26/13 Vitamin E (VITAMIN E) 400 Unit Capsule, 400 UNIT PO DAILY 04/26/13 [place]-3 Fatty Acids (FISH OIL) 500 Mg Capsule, 500 MG PO DAILY 04/26/13 Magnesium Oxide (MAGNESIUM OXIDE) 400 Mg Tablet, 400 MG PO QID 04/26/13 Alprazolam (XANAX) 1 Mg Tablet, 1 MG PO QID 04/26/13 Furosemide (LASIX) 40 Mg Tablet, 40 MG PO DAILY 04/26/13 Aspirin (ASPIRIN) 325 Mg Tablet, 325 MG PO DAILY 04/26/13 Gabapentin (GABAPENTIN) 600 Mg Tablet, 600 MG PO TID 04/26/13 Tizanidine Hcl (TIZANIDINE HCL) 4 Mg Tablet, 4 MG PO QID 04/26/13 Omeprazole (OMEPRAZOLE) 20 Mg Tablet.dr, 20 MG PO DAILY07 04/26/13 Potassium Chloride (KLOR-CON) 20 Meq Packet, 40 MEQ PO TID, PACKET 04/26/13 Albuterol Sulfate (PROAIR HFA INHALER) 8.5 Gm Hfa.aer.ad, 8.5 GM IH Q4HRS PRN for SHORTNESS OF BREATH 04/26/13 Fluticasone/Salmeterol (ADVAIR 500-50 DISKUS) 1 Each Disk.w.dev, 1 EACH IH BID 04/26/13 Discontinued Reported Medications [Anusol-Hc] No Conflict Check, 25 MG VAG HS 06/09/17 Discontinued Scripts Cephalexin (CEPHALEXIN) 500 Mg Capsule, 1 CAP PO QID, #40 CAP Prov:EMELIA MOFFETT MD 09/05/18 Prednisone (PREDNISONE) 20 Mg Tablet, 2 TAB PO DAILY, #8 TAB Start this medication tomorrow, Friday08/11/18 Prov:TIFFANI DILL DO 08/10/18 TIFFANI MARINELLI MD Oct 07, 2018 18:15
--- NOTE | 2018-10-07 19:20 | NUR ---
pt discharged home with home healt. HH set up by nursing supervisor money room. Pt given oral antibiotic prescriptions and nystatin. Patient understands discharge instructions. Patient alert and stable. IV discontinued. Belongings with patient.
--- NOTE | 2018-10-08 14:23 | DS ---
DATE OF DISCHARGE: 10/07/2018 CHIEF COMPLAINT: Chest pain. HISTORY OF PRESENT ILLNESS: The patient is a 62-year-old female who presented to the Emergency Room with the above complaint. She reported chest pain with some weakness and shortness of breath. A caregiver who was with her also reported that the patient seemed somewhat confused. Evaluation in the Emergency Room showed her to be febrile and had evidence of sepsis. Urine had white blood cells too numerous to count. The patient also had a possible pneumonia seen on chest x-ray. Treatment was started and she was admitted for further care. HOSPITAL COURSE: The patient was started on broad-spectrum antibiotics for treatment of presumed urinary tract infection and possible pneumonia. Infectious Disease, Pulmonary Medicine and Cardiology were consulted and assisted in the patient's management. Urine culture was eventually positive for Klebsiella pneumoniae. Blood culture was without growth. Sputum culture showed Haemophilus influenzae and methicillin-resistant Staphylococcus aureus and the patient's medications were adjusted accordingly. She initially received fluid resuscitation per sepsis protocol and responded well to this. Pulmonary Medicine initially felt that the patient had some shock lung due to her sepsis. A CT of the chest was done. This did show consolidative bilateral lower lobe infiltrates and thus, she was treated for healthcare-associated pneumonia also. She had hyponatremia at admission, which improved with IV fluids and a.m. cortisol was within normal limits. She was given a short course of steroids for possible adrenal insufficiency, but these were then discontinued. The patient was initially hypotensive, so her blood pressure medication was held. The hypotension quickly resolved and her usual blood pressure medicines were resumed. She has chronic urinary retention and has a Drummond catheter due to this and this was continued. She has chronic back pain and was continued on oral pain medication for this. She also received physical and occupational therapy to help improve her mobility. She has chronic anxiety and depression and was given her usual medications for these. The patient had good improvement in her symptoms and by the day of discharge, stated that she felt much better. Her oxygen saturation was good on her usual 2 liters of oxygen per nasal cannula. Infectious Disease recommended changing the patient to oral Cipro and Zyvox for 7 more days of treatment. She was discharged home on 10/07/2018 with orders to resume home health. FINAL DIAGNOSES: 1. Sepsis with urinary tract infection. 2. Healthcare-associated pneumonia with acute lung injury and chronic obstructive pulmonary disease. 3. Hyponatremia. 4. Chronic back pain. 5. Chronic anxiety and depression. 6. Debility. DISCHARGE MEDICATIONS: All of her usual medications were continued at discharge. In addition, she was given Cipro 500 mg b.i.d. x 7 days, Zyvox 600 mg b.i.d. x 14 days and nystatin suspension for 10 days. FOLLOWUP: Follow up is with Dr. Leon within 2 weeks. Follow up with consultants as advised. NICOLAS LEON MD DR: HANNAH/joshua JOB#: [id number] / [id number] MICHELLE
[2018-10-10] MEDS ORDERED: ERGOCALCIFEROL (VITAMIN D2) 50,000 UNIT CAPSULE. PO SCH (09:00)
== END 2018-10-07 19:21 | disposition home health service (06) | DRG 698 ==
LOC: ER 13:39 → 1 WEST ICU 14:53 → 5 SOUTH 10-04 14:00
PROVIDERS: ADMIT Family Medicine; ATTEND Family Medicine
DX: T83.511A Infection and inflammatory reaction due to indwelling urethral catheter, initial encounter (principal); A41.9 Sepsis, unspecified organism; I50.33 Acute on chronic diastolic (congestive) heart failure; J18.9 Pneumonia, unspecified organism; R65.21 Severe sepsis with septic shock; E87.1 Hypo-osmolality and hyponatremia; I13.0 Hypertensive heart and chronic kidney disease with heart failure and stage 1 through stage 4 chronic kidney disease, or unspecified chronic kidney disease; N17.9 Acute kidney failure, unspecified; J44.0 Chronic obstructive pulmonary disease with (acute) lower respiratory infection; E27.40 Unspecified adrenocortical insufficiency; N39.0 Urinary tract infection, site not specified; Z96.641 Presence of right artificial hip joint; Z96.659 Presence of unspecified artificial knee joint; F17.210 Nicotine dependence, cigarettes, uncomplicated; Y95 Nosocomial condition; I25.10 Atherosclerotic heart disease of native coronary artery without angina pectoris; E78.5 Hyperlipidemia, unspecified; I48.91 Unspecified atrial fibrillation; E03.9 Hypothyroidism, unspecified; F41.9 Anxiety disorder, unspecified; F32.9 Major depressive disorder, single episode, unspecified; K21.9 Gastro-esophageal reflux disease without esophagitis; M54.40 Lumbago with sciatica, unspecified side; E87.6 Hypokalemia; D64.9 Anemia, unspecified; G89.29 Other chronic pain; I25.2 Old myocardial infarction; R09.02 Hypoxemia; M79.7 Fibromyalgia; M06.9 Rheumatoid arthritis, unspecified; G62.9 Polyneuropathy, unspecified; N18.9 Chronic kidney disease, unspecified; Z99.81 Dependence on supplemental oxygen; Z95.5 Presence of coronary angioplasty implant and graft; Z93.2 Ileostomy status; Z88.8 Allergy status to other drugs, medicaments and biological substances; Z86.73 Personal history of transient ischemic attack (TIA), and cerebral infarction without residual deficits; Z83.3 Family history of diabetes mellitus; Z82.5 Family history of asthma and other chronic lower respiratory diseases; Z82.3 Family history of stroke; Z87.440 Personal history of urinary (tract) infections; Z90.710 Acquired absence of both cervix and uterus; Z86.14 Personal history of Methicillin resistant Staphylococcus aureus infection
CPT/HCPCS: 36415; 36600; 71045; 71250; 80048; 80053; 81001; 82533; 82550; 82805; 83605; 83690; 83880; 84436; 84443; 84484; 85007; 85025; 85610; 87040; 87070; 87086; 87186; 87205; 87641; 93005; 94640; 94760; 96361; 96374; 96375; 99292; J1650; J1720; J2543; J2930; J3010; J3370; J7030; J7040; J7613; J7620; J7626; 97110; 97116; 97530; 97535; 99291-25

== ENCOUNTER 2018-11-08 19:31 | Emergency (ER) | payer OTHER ==
[~2018-11-08] VITALS: Ht 172.7 cm; Wt 99.8 kg
[~2018-11-08 19:31] MED LIST changes: +NYST100054 SWSW; -TIZA4TAB PO; +TIZA4TAB2 PO
[2018-11-08] MEDS ORDERED: DEXAMETHASONE SOD PHOS 20 MG/5 ML VIAL. IV ONE (21:30)
[2018-11-08] MEDS ORDERED: IV NORMAL SALINE 1000ML BAG 1,000 ML IV ONE (21:30)
[2018-11-08 21:34] LABS: BASO % 0 % (0-3); EOS # 0.1 x10^3/uL (0.0-0.7); EOS % 1 % (0-3); HEMATOCRIT 32.2 % (36.0-47.0); HEMOGLOBIN 10.9 g/dL (12.0-15.5); LYMPH # 2.7 x10^3/uL (1.0-4.8); LYMPH % 17 % (24-48); MEAN CORPUSCULAR HEMOGLOBIN 32 pg (25-35); MEAN CORPUSCULAR HGB CONC 34 g/dL (31-37); MEAN CORPUSCULAR VOLUME 93 fL (79-100); MONO # 0.9 x10^3/uL (0.0-1.1); MONO % 6 % (0-9); NEUT # 12.4 x10^3/uL (1.8-7.7); NEUT % 77 % (31-73); PLATELET COUNT 348 x10^3/uL (140-400); RED BLOOD COUNT 3.46 x10^6/uL (3.50-5.40); RED CELL DISTRIBUTION WIDTH 14.1 % (11.5-14.5); WHITE BLOOD COUNT 16.2 x10^3/uL (4.0-11.0)
[2018-11-08 21:44] LABS: CALCIUM 9.1 mg/dL (8.5-10.1); CREATININE 1.2 mg/dL (0.6-1.0); GFR 45.7; POTASSIUM 3.9 mmol/L (3.5-5.1)
[2018-11-08 21:50] LABS: ALBUMIN 3.5 g/dL (3.4-5.0); ALBUMIN/GLOBULIN RATIO 0.9 (1.0-1.7); MAGNESIUM 1.7 mg/dL (1.8-2.4); TOTAL BILIRUBIN 0.3 mg/dL (0.2-1.0); TOTAL PROTEIN 7.2 g/dL (6.4-8.2)
[2018-11-08 22:03] LABS: BILIRUBIN,URINE NEGATIVE (NEG); CLARITY,URINE CLEAR; NITRITE,URINE POSITIVE (NEG); PROTEIN,URINE NEGATIVE (NEG-TRACE); UROBILINOGEN,URINE 0.2 mg/dL (0.2 mg/dL)
[2018-11-08 22:09] LABS: COLOR,URINE STRAW
[2018-11-08 22:12] LABS: BACTERIA,URINE MANY /HPF (0-FEW); RBC,URINE OCC /HPF (0-2); SQUAMOUS EPITHELIAL CELL,UR MOD /LPF; WBC,URINE 20-40 /HPF (0-4)
--- NOTE | 2018-11-08 22:28 | RAD ---
Exam: Chest one view INDICATION: Shortness of breath TECHNIQUE: Frontal view of the chest Comparisons: 10/03/2018 FINDINGS: The cardiomediastinal silhouette and pulmonary vessels are within normal limits. The lung and pleural spaces are clear. IMPRESSION: No acute cardiopulmonary process. Electronically signed by: Ash Tracey MD (11/08/2018 10:24 PM) [facility]
[2018-11-08] MEDS ORDERED: cefTRIAXone IV Push 1 GM VIAL. IVP ONE (22:30)
[2018-11-08] MEDS ORDERED: fentaNYL PF VIAL 100 MCG/2 ML VIAL IV ONE (22:30)
[2018-11-08] MEDS ORDERED: IPRATRPIUM/ALBUTEROL 0.5/2.5MG 3 ML NEBU. NEB ONE (22:45)
[2018-11-08] MEDS ORDERED: CONTRAST GIVEN. MC PRN (22:45)
[2018-11-08] MEDS ORDERED: CEPH-264 PO (22:54)
[2018-11-08] MEDS ORDERED: BUTA1TAB23 PO (22:54)
[2018-11-08] MEDS ORDERED: PRED20TA PO (22:54)
--- NOTE | 2018-11-08 22:54 | PHYS DOC ---
Past Medical History Past Medical History: CHF, COPD, PR, Stroke Additional Past Medical Histor: "C.diffRotted colon out.I have an ileostomy.",R HIP DISLOCATIONS Past Surgical History: Hip Replacement, Knee Replacement Additional Past Surgical Histo: Back SX, L ROTA, Cardiac stent,COLON\\RECTUM, BX KNEE, BX THUMB JOINT, R HIP Additional Information: 5 smokes per day. Alcohol Use: None Drug Use: None Adult General Chief Complaint Chief Complaint: MULTIPLE COMPLAINTS HPI HPI Patient is a 63 year old [f__sex] who presents with [] Review of Systems Review of Systems Constitutional: Denies fever or chills [] Eyes: Denies change in visual acuity, redness, or eye pain [] HENT: Denies nasal congestion or sore throat [] Respiratory: Denies cough or shortness of breath [] Cardiovascular: No additional information not addressed in HPI [] GI: Denies abdominal pain, nausea, vomiting, bloody stools or diarrhea [] : Denies dysuria or hematuria [] Musculoskeletal: Denies back pain or joint pain [] Integument: Denies rash or skin lesions [] Neurologic: Denies headache, focal weakness or sensory changes [] Endocrine: Denies polyuria or polydipsia [] All other systems were reviewed and found to be within normal limits, except as documented in this note. Current Medications Current Medications Current Medications Medications (Trade) Dose Ordered Sig/Joel Start Time Stop Time Status Last Admin Dose Admin Albuterol/ Ipratropium (Duoneb) 3 ml 1X ONCE 11/08/18 22:45 11/08/18 22:46 DC Ceftriaxone Sodium (Rocephin) 1 gm 1X ONCE 11/08/18 22:30 11/08/18 22:31 DC 11/08/18 22:48 1 GM Dexamethasone Sodium Phosphate (Decadron) 10 mg 1X ONCE 11/08/18 21:30 11/08/18 21:31 DC 11/08/18 21:38 10 MG Fentanyl Citrate (Fentanyl 2ml Vial) 50 mcg 1X ONCE 11/08/18 22:30 11/08/18 22:31 DC 11/08/18 22:48 50 MCG Info (CONTRAST GIVEN -- Rx MONITORING) 1 each PRN DAILY PRN 11/08/18 22:45 11/10/18 22:44 Sodium Chloride 1,000 ml @ 1,000 mls/hr 1X ONCE 11/08/18 21:30 11/08/18 22:29 DC 11/08/18 21:38 1,000 MLS/HR Allergies Allergies Allergies Coded Allergies Type Severity Reaction Last Updated Verified apixaban Allergy Intermediate Swelling 05/17/18 Yes hydromorphone Allergy Intermediate 08/10/18 Yes phenytoin sodium Allergy Intermediate 05/17/18 Yes phenytoin sodium extended Allergy Intermediate 05/17/18 Yes I S O L A T I O N *CONTACT* Allergy Unknown 10/07/18 Yes doxycycline Adverse Reaction Intermediate GI UPSET 05/17/18 Yes pregabalin Adverse Reaction Intermediate NIGHTMARES 05/17/18 Yes Physical Exam Physical Exam Constitutional: Well developed, well nourished, no acute distress, non-toxic appearance. [] HENT: Normocephalic, atraumatic, bilateral external ears normal, oropharynx moist, no oral exudates, nose normal. [] Eyes: PERRLA, EOMI, conjunctiva normal, no discharge. [] Neck: Normal range of motion, no tenderness, supple, no stridor. [] Cardiovascular:Heart rate regular rhythm, no murmur [] Lungs & Thorax: Bilateral breath sounds clear to auscultation [] Abdomen: Bowel sounds normal, soft, no tenderness, no masses, no pulsatile masses. [] Skin: Warm, dry, no erythema, no rash. [] Back: No tenderness, no CVA tenderness. [] Extremities: No tenderness, no cyanosis, no clubbing, ROM intact, no edema. [] Neurologic: Alert and oriented X 3, normal motor function, normal sensory function, no focal deficits noted. [] Psychologic: Affect normal, judgement normal, mood normal. [] Current Patient Data Vital Signs Vital Signs Date Time Temp Pulse Resp B/P (MAP) Pulse Ox O2 Delivery O2 Flow Rate FiO2 11/08/18 22:48 20 97 Nasal Cannula 2.0 11/08/18 20:35 97.9 93 133/67 (89) 97.9 Lab Values Laboratory Tests Test 11/08/18 21:20 11/08/18 21:45 White Blood Count 16.2 x10^3/uL (4.0-11.0) H Red Blood Count 3.46 x10^6/uL (3.50-5.40) L Hemoglobin 10.9 g/dL (12.0-15.5) L Hematocrit 32.2 % (36.0-47.0) L Mean Corpuscular Volume 93 fL (79-100) Mean Corpuscular Hemoglobin 32 pg (25-35) Mean Corpuscular Hemoglobin Concent 34 g/dL (31-37) Red Cell Distribution Width 14.1 % (11.5-14.5) Platelet Count 348 x10^3/uL (140-400) Neutrophils (%) (Auto) 77 % (31-73) H Lymphocytes (%) (Auto) 17 % (24-48) L Monocytes (%) (Auto) 6 % (0-9) Eosinophils (%) (Auto) 1 % (0-3) Basophils (%) (Auto) 0 % (0-3) Neutrophils # (Auto) 12.4 x10^3/uL (1.8-7.7) H Lymphocytes # (Auto) 2.7 x10^3/uL (1.0-4.8) Monocytes # (Auto) 0.9 x10^3/uL (0.0-1.1) Eosinophils # (Auto) 0.1 x10^3/uL (0.0-0.7) Basophils # (Auto) 0.0 x10^3/uL (0.0-0.2) Sodium Level 132 mmol/L (136-145) L Potassium Level 3.9 mmol/L (3.5-5.1) Chloride Level 97 mmol/L (98-107) L Carbon Dioxide Level 25 mmol/L (21-32) Anion Gap 10 (6-14) Blood Urea Nitrogen 9 mg/dL (7-20) Creatinine 1.2 mg/dL (0.6-1.0) H Estimated GFR (Cockcroft-Gault) 45.7 BUN/Creatinine Ratio 8 (6-20) Glucose Level 110 mg/dL (70-99) H Lactic Acid Level 1.4 mmol/L (0.4-2.0) Calcium Level 9.1 mg/dL (8.5-10.1) Magnesium Level 1.7 mg/dL (1.8-2.4) L Total Bilirubin 0.3 mg/dL (0.2-1.0) Aspartate Amino Transferase (AST) 21 U/L (15-37) Alanine Aminotransferase (ALT) 26 U/L (14-59) Alkaline Phosphatase 120 U/L (46-116) H Creatine Kinase 93 U/L (26-192) Creatine Kinase MB (Mass) 1.4 ng/mL (0.0-3.6) Creatine Kinase MB Relative Index 1.5 % (0-4) Troponin I Quantitative < 0.017 ng/mL (0.000-0.055) Total Protein 7.2 g/dL (6.4-8.2) Albumin 3.5 g/dL (3.4-5.0) Albumin/Globulin Ratio 0.9 (1.0-1.7) L Urine Collection Type U cath Urine Color Straw Urine Clarity Clear Urine pH 6.0 Urine Specific [place] <=1.005 Urine Protein Negative mg/dL (NEG-TRACE) Urine Glucose (UA) Negative mg/dL (NEG) Urine Ketones (Stick) Negative mg/dL (NEG) Urine Blood Small (NEG) Urine Nitrite Positive (NEG) Urine Bilirubin Negative (NEG) Urine Urobilinogen Dipstick 0.2 mg/dL (0.2 mg/dL) Urine Leukocyte Esterase Large (NEG) Urine RBC Occ /HPF (0-2) Urine WBC 20-40 /HPF (0-4) Urine Squamous Epithelial Cells Mod /LPF Urine Renal Epithelial Cells Occ /LPF Urine Bacteria Many /HPF (0-FEW) Laboratory Tests 11/08/18 21:20 Laboratory Tests 11/08/18 21:20 EKG EKG @2138 NSR at 89bpm, NO ST elevation, low voltage QRS, nonspecific t wave inversion V1-V2 Radiology/Procedures Radiology/Procedures PROCEDURE: PORTABLE CHEST 1V Exam: Chest one view INDICATION: Shortness of breath TECHNIQUE: Frontal view of the chest Comparisons: 10/03/2018 FINDINGS: The cardiomediastinal silhouette and pulmonary vessels are within normal limits. The lung and pleural spaces are clear. IMPRESSION: No acute cardiopulmonary process. Electronically signed by: Ash Tracey MD (11/08/2018 10:24 PM) [facility] Course & Med Decision Making Course & Med Decision Making Pertinent Labs and Imaging studies reviewed. (See chart for details) [] Dragon Disclaimer Dragon Disclaimer This electronic medical record was generated, in whole or in part, using a voice recognition dictation system. Departure Departure Impression: Primary Impression: UTI (urinary tract infection) Additional Impressions: Bronchitis Headache Disposition: 01 HOME, SELF-CARE Condition: STABLE Referrals: NICOLAS HICKS MD (PCP) Patient Instructions: Acute Bronchitis, [id number], Catheter-Associated Urinary Tract Infection FAQs - DIAZ, Headache, FAQs Scripts Butalb/Acetaminophen/Caffeine ([id number] 50-325-40) 1 Each Tablet 1 EACH PO Q6HRS PRN for HEADACHE, #14 TAB Prov: TIFFANI DILL DO 11/08/18 Prednisone (PREDNISONE) 20 Mg Tablet 2 TAB PO DAILY, #8 TAB Start this prescription tomorrow, Friday11/09/18 Prov: TIFFANI DILL DO 11/08/18 Cephalexin (KEFLEX) 500 Mg Capsule 500 MG PO TID for 7 Days, #21 CAP Prov: TIFFANI DILL DO 11/08/18 Problem Qualifiers Primary Impression: UTI (urinary tract infection) Urinary tract infection type: catheter-associated UTI Indwelling urinary catheter type: unspecified Encounter type: initial encounter Qualified Codes: T83.511A - Infection and inflammatory reaction due to indwelling urethral catheter, initial encounter; N39.0 - Urinary tract infection, site not specified Additional Impressions: Headache Headache type: unspecified Headache chronicity pattern: acute headache Intractability: intractable Qualified Codes: R51 - Headache TIFFANI DILL DO Nov 08, 2018 22:54
[2018-11-08 23:00] VITALS: BP 138/63
--- NOTE | 2018-11-09 07:05 | EKG ---
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
== END 2018-11-08 23:15 | disposition home or self-care (01) ==
LOC: ER 19:31
DX: T83.511A Infection and inflammatory reaction due to indwelling urethral catheter, initial encounter (principal); N39.0 Urinary tract infection, site not specified; J40 Bronchitis, not specified as acute or chronic; R51 Headache; J44.9 Chronic obstructive pulmonary disease, unspecified; I25.2 Old myocardial infarction; Z86.79 Personal history of other diseases of the circulatory system; Z86.73 Personal history of transient ischemic attack (TIA), and cerebral infarction without residual deficits; F17.200 Nicotine dependence, unspecified, uncomplicated; Z96.649 Presence of unspecified artificial hip joint; Z96.659 Presence of unspecified artificial knee joint; Z95.5 Presence of coronary angioplasty implant and graft; Z93.2 Ileostomy status; Z88.1 Allergy status to other antibiotic agents; Z88.5 Allergy status to narcotic agent; Z91.041 Radiographic dye allergy status; Z88.8 Allergy status to other drugs, medicaments and biological substances; Y84.6 Urinary catheterization as the cause of abnormal reaction of the patient, or of later complication, without mention of misadventure at the time of the procedure; Y92.89 Other specified places as the place of occurrence of the external cause
CPT/HCPCS: 36415; 71045; 80053; 81001; 82553; 83605; 83735; 84484; 85025; 87086; 93005; 94640; 96374; 96375; 99285; J0696; J1100; J3010; J7030; J7620; 51701; 87186; 96361

== ENCOUNTER 2018-11-15 14:23 | Inpatient (IN) | payer OTHER ==
[~2018-11-15] VITALS: Ht 172.7 cm; Wt 99.8 kg
[~2018-11-15 14:23] MED LIST changes: +BUTA1TAB23 PO; +CEPH-264 PO; -LINE600T PO; +LINE600T37 PO
[2018-11-15 16:00] LABS: BASO # 0.1 x10^3/uL (0.0-0.2); BASO % 0 % (0-3); EOS # 0.1 x10^3/uL (0.0-0.7); EOS % 1 % (0-3); HEMATOCRIT 41.7 % (36.0-47.0); HEMOGLOBIN 14.2 g/dL (12.0-15.5); LYMPH # 6.1 x10^3/uL (1.0-4.8); LYMPH % 35 % (24-48); MEAN CORPUSCULAR HEMOGLOBIN 32 pg (25-35); MEAN CORPUSCULAR HGB CONC 34 g/dL (31-37); MEAN CORPUSCULAR VOLUME 93 fL (79-100); MONO # 0.9 x10^3/uL (0.0-1.1); MONO % 5 % (0-9); NEUT # 10.1 x10^3/uL (1.8-7.7); NEUT % 59 % (31-73); PLATELET COUNT 486 x10^3/uL (140-400); RED BLOOD COUNT 4.48 x10^6/uL (3.50-5.40); RED CELL DISTRIBUTION WIDTH 14.3 % (11.5-14.5); WHITE BLOOD COUNT 17.3 x10^3/uL (4.0-11.0)
[2018-11-15] MEDS ORDERED: MORPHINE SULFATE 2 MG/ML VIAL. IV ONE ×2 (16:00→17:15)
[2018-11-15] MEDS ORDERED: IV NORMAL SALINE 1000ML BAG 1,000 ML IV ONE (16:00)
[2018-11-15] MEDS ORDERED: METOCLOPRAMIDE HCL 10 MG/2 ML VIAL. IV ONE ×2 (16:00→19:15)
[2018-11-15 16:06] LABS: CREATININE 1.4 mg/dL (0.6-1.0); GFR 38.2; POTASSIUM 4.1 mmol/L (3.5-5.1)
[2018-11-15 16:12] LABS: ALBUMIN 4.2 g/dL (3.4-5.0); TOTAL BILIRUBIN 0.2 mg/dL (0.2-1.0); TOTAL PROTEIN 8.3 g/dL (6.4-8.2)
--- NOTE | 2018-11-15 16:17 | PHYS DOC ---
Past Medical History Past Medical History: CHF, COPD, [place], Stroke Additional Past Medical Histor: "C.diffRotted colon out.I have an ileostomy.",R HIP DISLOCATIONS (TONI MALDONADO APRN) Past Surgical History: Hip Replacement, Knee Replacement Additional Past Surgical Histo: Back SX, L ROTA, Cardiac stent,COLON\\RECTUM, BX KNEE, BX THUMB JOINT, R HIP (TONI MALDONADO APRN) Alcohol Use: None Drug Use: None (TONI MALDONADO APRN) Adult General Chief Complaint Chief Complaint: HEADACHE HPI HPI Patient is a 63 year old female] who presents with [headaches and general malaise. Patient reports she has had a headache for the past week, says she woke up this morning and she felt better, but at 10:30 this morning she had a sudden onset headache which has gotten progressively worse throughout the day. States she has not vomited, but she has felt nausea. Reports she has felt nauseous for the past several days states she had been diagnosed with the UTI recently, had received a phone call on this past Friday that the medication she was taking, keflex, was resistant and she was restarted on Macrobid at that time. States earlier in September she had been admitted to the hospital for sepsis due to a UTI, and she reports she has had 3 UTIs since that time. Reports she is concerned that she does not want to and from hospital with sepsis again. Patient does report generalized illness, not feeling very well. (TONI MALDONADO APRN) Review of Systems Review of Systems Constitutional: Denies fever does report feeling some chills chills [] Eyes: Denies change in visual acuity, redness, or eye pain [] HENT: Denies nasal congestion does report she has a scratchy throat, denies sore throat [] Respiratory: Denies cough or shortness of breath [] Cardiovascular: No additional information not addressed in HPI [] GI: Denies abdominal pain, nausea, vomiting, bloody stools or diarrhea [] : Denies dysuria or hematuria and states she can tell that she still has a UTI [] Musculoskeletal: Denies back pain or joint pain [] Integument: Denies rash or skin lesions [] Neurologic: Reports severe headache today, reports generalized weakness. Denies any focal weakness or sensory changes [] Endocrine: Denies polyuria or polydipsia [] All other systems were reviewed and found to be within normal limits, except as documented in this note. (TONI MALDONADO APRN) Current Medications Current Medications Current Medications Medications (Trade) Dose Ordered Sig/Joel Start Time Stop Time Status Last Admin Dose Admin Metoclopramide HCl (Reglan Vial) 10 mg 1X ONCE 11/15/18 16:00 11/15/18 16:01 DC 11/15/18 16:00 10 MG Morphine Sulfate (Morphine Sulfate) 2 mg 1X ONCE 11/15/18 17:15 11/15/18 17:16 DC 11/15/18 17:15 2 MG Sodium Chloride 1,000 ml @ 1,000 mls/hr 1X ONCE 11/15/18 16:00 11/15/18 16:59 DC 11/15/18 16:00 1,000 MLS/HR (CARLTON DILL DO) Allergies Allergies Allergies Coded Allergies Type Severity Reaction Last Updated Verified apixaban Allergy Intermediate Swelling 05/17/18 Yes hydromorphone Allergy Intermediate 08/10/18 Yes phenytoin sodium Allergy Intermediate 05/17/18 Yes phenytoin sodium extended Allergy Intermediate 05/17/18 Yes I S O L A T I O N *CONTACT* Allergy Unknown 10/07/18 Yes doxycycline Adverse Reaction Intermediate GI UPSET 05/17/18 Yes pregabalin Adverse Reaction Intermediate NIGHTMARES 05/17/18 Yes (CARLTON DILL DO) Physical Exam Physical Exam Constitutional: Well developed, well nourished, no acute distress, non-toxic appearance. [] HENT: Normocephalic, atraumatic, bilateral external ears normal, oropharynx moist, no oral exudates, nose normal. [] Eyes: PERRLA, EOMI, conjunctiva normal, no discharge. [] Neck: Normal range of motion, no tenderness, supple, no stridor. [] Cardiovascular:Heart rate regular rhythm, no murmur [] Lungs & Thorax: Bilateral breath sounds clear to auscultation [] Abdomen: Bowel sounds normal, soft, no tenderness, no masses, no pulsatile masses. [] Skin: Warm, dry, no erythema, no rash. [] Back: No tenderness, no CVA tenderness. [] Extremities: No tenderness, no cyanosis, no clubbing, ROM intact, no edema. [] Neurologic: Alert and oriented X 3, normal motor function, normal sensory function, no focal deficits noted. [] Psychologic: Affect normal, judgement normal, mood normal. [] (TONI MALDONADO APRN) Current Patient Data Vital Signs Vital Signs Date Time Temp Pulse Resp B/P (MAP) Pulse Ox O2 Delivery O2 Flow Rate FiO2 11/15/18 17:28 91 15 97 11/15/18 17:15 Room Air 11/15/18 14:45 98.1 130/88 (102) 98.1 (CARLTON DILL DO) Lab Values Laboratory Tests Test 11/15/18 15:15 11/15/18 16:50 White Blood Count 17.3 x10^3/uL (4.0-11.0) H Red Blood Count 4.48 x10^6/uL (3.50-5.40) Hemoglobin 14.2 g/dL (12.0-15.5) Hematocrit 41.7 % (36.0-47.0) Mean Corpuscular Volume 93 fL (79-100) Mean Corpuscular Hemoglobin 32 pg (25-35) Mean Corpuscular Hemoglobin Concent 34 g/dL (31-37) Red Cell Distribution Width 14.3 % (11.5-14.5) Platelet Count 486 x10^3/uL (140-400) H Neutrophils (%) (Auto) 59 % (31-73) Lymphocytes (%) (Auto) 35 % (24-48) Monocytes (%) (Auto) 5 % (0-9) Eosinophils (%) (Auto) 1 % (0-3) Basophils (%) (Auto) 0 % (0-3) Neutrophils # (Auto) 10.1 x10^3/uL (1.8-7.7) H Lymphocytes # (Auto) 6.1 x10^3/uL (1.0-4.8) H Monocytes # (Auto) 0.9 x10^3/uL (0.0-1.1) Eosinophils # (Auto) 0.1 x10^3/uL (0.0-0.7) Basophils # (Auto) 0.1 x10^3/uL (0.0-0.2) Segmented Neutrophils % 43 % (35-66) Band Neutrophils % 1 % (0-9) Lymphocytes % 43 % (24-48) Monocytes % 6 % (0-10) Eosinophils % 2 % (0-5) Basophils % 1 % (0-3) Metamyelocytes % 2 % (0-0) H Myelocytes % 2 % (0-0) H Platelet Estimate Increased (ADEQUATE) Sodium Level 130 mmol/L (136-145) L Potassium Level 4.1 mmol/L (3.5-5.1) Chloride Level 94 mmol/L (98-107) L Carbon Dioxide Level 22 mmol/L (21-32) Anion Gap 14 (6-14) Blood Urea Nitrogen 13 mg/dL (7-20) Creatinine 1.4 mg/dL (0.6-1.0) H Estimated GFR (Cockcroft-Gault) 38.2 BUN/Creatinine Ratio 9 (6-20) Glucose Level 137 mg/dL (70-99) H Lactic Acid Level 2.8 mmol/L (0.4-2.0) H Calcium Level 9.0 mg/dL (8.5-10.1) Total Bilirubin 0.2 mg/dL (0.2-1.0) Aspartate Amino Transferase (AST) 26 U/L (15-37) Alanine Aminotransferase (ALT) 42 U/L (14-59) Alkaline Phosphatase 139 U/L (46-116) H Troponin I Quantitative < 0.017 ng/mL (0.000-0.055) Total Protein 8.3 g/dL (6.4-8.2) H Albumin 4.2 g/dL (3.4-5.0) Albumin/Globulin Ratio 1.0 (1.0-1.7) Urine Collection Type Unknown Urine Color Straw Urine Clarity Clear Urine pH 5.0 Urine Specific [place] <=1.005 Urine Protein Negative mg/dL (NEG-TRACE) Urine Glucose (UA) Negative mg/dL (NEG) Urine Ketones (Stick) Negative mg/dL (NEG) Urine Blood Trace (NEG) Urine Nitrite Negative (NEG) Urine Bilirubin Negative (NEG) Urine Urobilinogen Dipstick 0.2 mg/dL (0.2 mg/dL) Urine Leukocyte Esterase Trace (NEG) Urine RBC Rare /HPF (0-2) Urine WBC 1-4 /HPF (0-4) Urine Squamous Epithelial Cells Mod /LPF Urine Bacteria Few /HPF (0-FEW) Laboratory Tests 11/15/18 15:15 Laboratory Tests 11/15/18 15:15 (CARLTON DILL DO) EKG EKG [] (TONI MALDONADO APRN) Radiology/Procedures Radiology/Procedures FINDINGS: No acute infarct cranial hemorrhage, mass effect, midline shift or abnormal extra-axial fluid collection. Ventricles and sulci are symmetric. Orbits appear unremarkable. No definite scalp swelling. There appear to be postsurgical changes of the sinuses. Mild fluid level within the partially visualized right maxillary sinus. No acute skull abnormality. IMPRESSION: No evidence of acute intracranial hemorrhage. Right maxillary sinus disease. Electronically signed by: Carlton Mckeon MD (11/15/2018 4:43 PM) [facility][] (TONI MALDONADO APRN) Course & Med Decision Making Course & Med Decision Making Pertinent Labs and Imaging studies reviewed. (See chart for details) []@[id number] Downey, agrees to accept patient observation. Discussed urine culture- results believe from office, will continue on macrobid. Patient in agreement with plan to admit (TNOI MALDONADO APRN) Dragon Disclaimer Dragon Disclaimer This electronic medical record was generated, in whole or in part, using a voice recognition dictation system. (TONI MALDONADO APRN) Departure Departure Impression: Primary Impression: Lactic acidosis Additional Impressions: Leukocytosis Headache Disposition: 09 ADMITTED INPATIENT Admitting Physician: Navya Downey (TONI MALDONADO APRN) Condition: STABLE Referrals: NICOLAS HICKS MD (PCP) Attending Signature Attending Signature I have reviewed the PA/EGG PROCESSING SUPERVISOR's note and plan of care. I was available for consultation as needed during the patient's visit in the emergency department. I agree with the clinical impression, plan, and disposition. (CARLTON DILL DO) Problem Qualifiers Additional Impressions: Leukocytosis Leukocytosis type: unspecified Qualified Codes: D72.829 - Elevated white blood cell count, unspecified Headache Headache type: unspecified Headache chronicity pattern: acute headache Intractability: not intractable Qualified Codes: R51 - Headache TONI MALDONADO APRN Nov 15, 2018 16:17 CARLTON DILL DO Nov 16, 2018 05:26
[2018-11-15 16:21] LABS: % BANDS 1 % (0-9); % BASOS 1 % (0-3); % EOS 2 % (0-5); % LYMPHS 43 % (24-48); % METAS 2 % (0-0); % MONOS 6 % (0-10); % MYELOS 2 % (0-0); % SEGS 43 % (35-66); PLT ESTIMATE INCREASED (ADEQUATE)
--- NOTE | 2018-11-15 16:45 | RAD ---
CT HEAD WO CONTRAST Indication: Sudden onset headache. Exposure: One or more of the following individualized dose reduction techniques were utilized for this examination: 1. Automated exposure control 2. Adjustment of the mA and/or kV according to patient size 3. Use of iterative reconstruction technique. Technique: Standard imaging without intravenous contrast. Comparison: None FINDINGS: No acute infarct cranial hemorrhage, mass effect, midline shift or abnormal extra-axial fluid collection. Ventricles and sulci are symmetric. Orbits appear unremarkable. No definite scalp swelling. There appear to be postsurgical changes of the sinuses. Mild fluid level within the partially visualized right maxillary sinus. No acute skull abnormality. IMPRESSION: No evidence of acute intracranial hemorrhage. Right maxillary sinus disease. Electronically signed by: Carlton Mckeon MD (11/15/2018 4:43 PM) [facility], [place]
[2018-11-15 17:09] LABS: BILIRUBIN,URINE NEGATIVE (NEG); CLARITY,URINE CLEAR; NITRITE,URINE NEGATIVE (NEG); PROTEIN,URINE NEGATIVE (NEG-TRACE); UROBILINOGEN,URINE 0.2 mg/dL (0.2 mg/dL)
[2018-11-15 17:12] LABS: COLOR,URINE STRAW
[2018-11-15 17:16] LABS: BACTERIA,URINE FEW /HPF (0-FEW); RBC,URINE RARE /HPF (0-2); SQUAMOUS EPITHELIAL CELL,UR MOD /LPF
[2018-11-15] MEDS ORDERED: KETOROLAC 15 MG/ML VIAL. IV ONE (18:15)
[2018-11-15] MEDS ORDERED: KETOROLAC 30 MG/ML VIAL. IV ONE (18:15)
[2018-11-15] MEDS ORDERED: diphenhydrAMINE 50 MG/ML VIAL IVP ONE (18:15)
[2018-11-15] MEDS: IV NORMAL SALINE 1000ML BAG 1,000 ML IV SCH ×2 (18:34→20:58)
[2018-11-15] MEDS: MORPHINE SULFATE 4 MG/ML VIAL. IV PRN ×3 (19:14→23:59)
[2018-11-15 20:15] VITALS: BP 126/78
--- NOTE | 2018-11-15 20:23 | NUR ---
The patient, BELLA ROACH, 63 y/o, F admitted by Davion FULTON MD, was given written information regarding hospital policies, unit procedures and contact persons. Valuables were checked and left in the room.
[2018-11-15 23:00] VITALS: BP 121/67
[2018-11-16 03:00] VITALS: BP 111/73
[2018-11-16] MEDS ORDERED: FURO40TA4 PO (03:12)
[2018-11-16] MEDS: MORPHINE SULFATE 4 MG/ML VIAL. IV PRN ×7 (04:00→17:30)
[2018-11-16] MEDS: IV NORMAL SALINE 1000ML BAG 1,000 ML IV SCH (04:04)
--- NOTE | 2018-11-16 04:44 | NUR ---
MRSA Treatment Nozin done.
[2018-11-16 07:00] VITALS: BP 107/58
[2018-11-16] MEDS ORDERED: NITR100C PO (08:06)
[2018-11-16 11:00] VITALS: BP 112/64
--- NOTE | 2018-11-16 12:50 | PDOC1 ---
History and Physical Date of Admission Date of Admission 11/15/18 Identification/Chief Complaint Chief Complaint headache Source Source: Chart review, Patient History of Present Illness History of Present Illness She presented to the ER with a headache and was found to be septic with an elevated WBD, elevated lactic acid and abnormal urine. She was dehydrated which is the likely cause of her headache. She has had to self cath for years after a colectomy caused a neurogenic bladder. She has had 3 UTIs this summer, she has a urologist but her is retiring and the group is at [facility] and does not cover inpatient here. She has had routine f/u with Dr. Leon and has been on Macrobid for a resistant UTI but the last culture I anuradha fang is from 10/20/18 and was from Serratia marcescens and resistant to Macrobid but S to Rocephin Past Medical History Cardiovascular: CAD, HTN, Hyperlipidemia, Other Pulmonary: COPD CENTRAL NERVOUS SYSTEM: CVA GI: GERD, Other Heme/Onc: Anemia NOS Psych: Anxiety, Depression Infectious disease: No pertinent hx Renal/: UTI, Other (neurogenic bladder, self caths) Endocrine: Hypothyroidism Past Surgical History Past Surgical History: Cholecystectomy, Hernia Repair, Total hip replacement, Total knee replacement, Hysterectomy, Colectomy, Colon Resection, Other Family History Family History: Stroke Family History: Parent Social History Smoke: No ALCOHOL: none Drugs: None Current Problem List Problem List Problems Medical Problems: (1) Headache Status: Acute (2) Lactic acidosis Status: Acute (3) Leukocytosis Status: Acute Current Medications Current Medications Current Medications Medications (Trade) Dose Ordered Sig/Joel Start Time Stop Time Status Last Admin Dose Admin Acetaminophen/ Butalbital/ Caffeine (Fioricet) 1 tab PRN Q6HRS PRN 11/16/18 12:15 Albuterol Sulfate (Ventolin Neb Soln) 2.5 mg RTQID 11/16/18 13:00 Alprazolam (Xanax) 1 mg QID 11/16/18 13:00 Aspirin (Nader Aspirin) 325 mg DAILY 11/16/18 13:00 Atorvastatin Calcium (Lipitor) 40 mg HS 11/16/18 21:00 Budesonide (Pulmicort) 0.5 mg RTBID 11/16/18 13:00 Buspirone HCl (Buspar) 10 mg BID 11/16/18 13:00 Diphenhydramine HCl (Benadryl) 50 mg 1X ONCE 11/15/18 18:15 11/15/18 18:16 DC 11/15/18 18:34 50 MG Fish Oil (Fish Oil) 1,000 mg DAILY 11/16/18 13:00 Fluticasone Propionate (Flonase) 2 spray DAILY 11/16/18 13:00 Furosemide (Lasix) 40 mg [id number] 11/16/18 14:00 Gabapentin (Neurontin) 600 mg TID 11/16/18 14:00 Ketorolac Tromethamine (Toradol 15mg Vial) 15 mg 1X ONCE 11/15/18 18:15 11/15/18 18:16 DC 11/15/18 18:34 15 MG Ketorolac Tromethamine (Toradol 30mg Vial) 15 mg 1X ONCE 11/15/18 18:15 11/15/18 18:16 DC Levothyroxine Sodium (Synthroid) 150 mcg DAILY06 11/17/18 06:00 Magnesium Oxide (Magnesium Oxide) 400 mg QID 11/16/18 13:00 Metoclopramide HCl (Reglan Vial) 10 mg 1X ONCE 11/15/18 19:15 11/15/18 19:16 DC 11/15/18 19:14 10 MG Morphine Sulfate (Morphine Sulfate) 4 mg PRN Q2HR PRN 11/15/18 18:15 11/16/18 18:14 11/16/18 10:37 4 MG Non-Formulary Medication (Albuterol Sulfate (Albuterol Sulfate Neb Soln)) 1 vial QID 11/16/18 13:00 UNV Non-Formulary Medication (Fluticasone/ Salmeterol (Advair 500-50 Diskus)) 1 each BID 11/16/18 21:00 UNV Non-Formulary Medication (Venlafaxine Hcl (Venlafaxine Hcl Er)) 75 mg DAILY 11/17/18 09:00 UNV Olanzapine (ZyPREXA) 5 mg QHS 11/16/18 21:00 Oxybutynin Chloride (Ditropan) 5 mg [id number] 11/16/18 14:00 Pantoprazole Sodium (Protonix) 40 mg DAILYAC 11/16/18 13:00 Potassium Chloride (Klor-Con) 40 meq TIDWMEALS 11/16/18 13:00 Sodium Chloride 1,000 ml @ 125 mls/hr Q8H 11/15/18 18:03 11/16/18 18:02 11/16/18 04:05 125 MLS/HR Tizanidine HCl (Zanaflex) 4 mg QID 11/16/18 13:00 Venlafaxine HCl (Effexor) 75 mg TID 11/16/18 13:00 Vitamin E 400 unit DAILY 11/16/18 13:00 Allergies Allergies Allergies Coded Allergies Type Severity Reaction Last Updated Verified apixaban Allergy Intermediate Swelling 05/17/18 Yes hydromorphone Allergy Intermediate 08/10/18 Yes phenytoin sodium Allergy Intermediate 05/17/18 Yes phenytoin sodium extended Allergy Intermediate 05/17/18 Yes I S O L A T I O N *CONTACT* Allergy Unknown 10/07/18 Yes doxycycline Adverse Reaction Intermediate GI UPSET 05/17/18 Yes pregabalin Adverse Reaction Intermediate NIGHTMARES 05/17/18 Yes ROS Review of System CONSTITUTIONAL: No fever or chills, positive for headache EYES: No recent changes SKIN: No rash or itching CARDIOVASCULAR: No chest pain, syncope, palpitations, or edema RESPIRATORY: No SOB or cough GASTROINTESTINAL: No nausea, vomiting or abdominal pain NEUROLOGICAL: + headaches and weakness ENDOCRINE: No cold or heat intolerance GENITOURINARY: see HPI MUSCULOSKELETAL: No back pain or joint pain LYMPHATICS: No enlarged lymph nodes PSYCHIATRIC: + anxiety & depression Physical Exam Physical Exam GEN.: No apparent distress. Alert and oriented. HEENT: Head is normocephalic, atraumatic NECK: Supple. LUNGS: Clear to auscultation. HEART: RRR, S1, S2 present. Peripheral pulses intact ABDOMEN: Soft, nontender. Positive bowel sounds. EXTREMITIES: Without any cyanosis. NEUROLOGIC: Normal speech, normal tone PSYCHIATRIC: Normal affect, normal mood. SKIN: No ulcerations Vitals Vitals Vital Signs Date Time Temp Pulse Resp B/P (MAP) Pulse Ox O2 Delivery O2 Flow Rate FiO2 11/16/18 11:56 20 97 Room Air 11/16/18 11:00 98.6 73 112/64 (80) 2.0 98.6 Labs Labs Laboratory Tests Test 11/15/18 15:15 11/15/18 16:50 11/15/18 22:55 White Blood Count 17.3 x10^3/uL (4.0-11.0) Red Blood Count 4.48 x10^6/uL (3.50-5.40) Hemoglobin 14.2 g/dL (12.0-15.5) Hematocrit 41.7 % (36.0-47.0) Mean Corpuscular Volume 93 fL (79-100) Mean Corpuscular Hemoglobin 32 pg (25-35) Mean Corpuscular Hemoglobin Concent 34 g/dL (31-37) Red Cell Distribution Width 14.3 % (11.5-14.5) Platelet Count 486 x10^3/uL (140-400) Neutrophils (%) (Auto) 59 % (31-73) Lymphocytes (%) (Auto) 35 % (24-48) Monocytes (%) (Auto) 5 % (0-9) Eosinophils (%) (Auto) 1 % (0-3) Basophils (%) (Auto) 0 % (0-3) Neutrophils # (Auto) 10.1 x10^3/uL (1.8-7.7) Lymphocytes # (Auto) 6.1 x10^3/uL (1.0-4.8) Monocytes # (Auto) 0.9 x10^3/uL (0.0-1.1) Eosinophils # (Auto) 0.1 x10^3/uL (0.0-0.7) Basophils # (Auto) 0.1 x10^3/uL (0.0-0.2) Segmented Neutrophils % 43 % (35-66) Band Neutrophils % 1 % (0-9) Lymphocytes % 43 % (24-48) Monocytes % 6 % (0-10) Eosinophils % 2 % (0-5) Basophils % 1 % (0-3) Metamyelocytes % 2 % (0-0) Myelocytes % 2 % (0-0) Platelet Estimate Increased (ADEQUATE) Sodium Level 130 mmol/L (136-145) Potassium Level 4.1 mmol/L (3.5-5.1) Chloride Level 94 mmol/L (98-107) Carbon Dioxide Level 22 mmol/L (21-32) Anion Gap 14 (6-14) Blood Urea Nitrogen 13 mg/dL (7-20) Creatinine 1.4 mg/dL (0.6-1.0) Estimated GFR (Cockcroft-Gault) 38.2 BUN/Creatinine Ratio 9 (6-20) Glucose Level 137 mg/dL (70-99) Lactic Acid Level 2.8 mmol/L (0.4-2.0) 0.5 mmol/L (0.4-2.0) Calcium Level 9.0 mg/dL (8.5-10.1) Total Bilirubin 0.2 mg/dL (0.2-1.0) Aspartate Amino Transf (AST/SGOT) 26 U/L (15-37) Alanine Aminotransferase (ALT/SGPT) 42 U/L (14-59) Alkaline Phosphatase 139 U/L (46-116) Troponin I Quantitative < 0.017 ng/mL (0.000-0.055) Total Protein 8.3 g/dL (6.4-8.2) Albumin 4.2 g/dL (3.4-5.0) Albumin/Globulin Ratio 1.0 (1.0-1.7) Urine Collection Type Unknown Urine Color Straw Urine Clarity Clear Urine pH 5.0 Urine Specific [place] <=1.005 Urine Protein Negative mg/dL (NEG-TRACE) Urine Glucose (UA) Negative mg/dL (NEG) Urine Ketones (Stick) Negative mg/dL (NEG) Urine Blood Trace (NEG) Urine Nitrite Negative (NEG) Urine Bilirubin Negative (NEG) Urine Urobilinogen Dipstick 0.2 mg/dL (0.2 mg/dL) Urine Leukocyte Esterase Trace (NEG) Urine RBC Rare /HPF (0-2) Urine WBC 1-4 /HPF (0-4) Urine Squamous Epithelial Cells Mod /LPF Urine Bacteria Few /HPF (0-FEW) Laboratory Tests Test 11/15/18 15:15 11/15/18 16:50 11/15/18 22:55 White Blood Count 17.3 x10^3/uL (4.0-11.0) Red Blood Count 4.48 x10^6/uL (3.50-5.40) Hemoglobin 14.2 g/dL (12.0-15.5) Hematocrit 41.7 % (36.0-47.0) Mean Corpuscular Volume 93 fL (79-100) Mean Corpuscular Hemoglobin 32 pg (25-35) Mean Corpuscular Hemoglobin Concent 34 g/dL (31-37) Red Cell Distribution Width 14.3 % (11.5-14.5) Platelet Count 486 x10^3/uL (140-400) Neutrophils (%) (Auto) 59 % (31-73) Lymphocytes (%) (Auto) 35 % (24-48) Monocytes (%) (Auto) 5 % (0-9) Eosinophils (%) (Auto) 1 % (0-3) Basophils (%) (Auto) 0 % (0-3) Neutrophils # (Auto) 10.1 x10^3/uL (1.8-7.7) Lymphocytes # (Auto) 6.1 x10^3/uL (1.0-4.8) Monocytes # (Auto) 0.9 x10^3/uL (0.0-1.1) Eosinophils # (Auto) 0.1 x10^3/uL (0.0-0.7) Basophils # (Auto) 0.1 x10^3/uL (0.0-0.2) Segmented Neutrophils % 43 % (35-66) Band Neutrophils % 1 % (0-9) Lymphocytes % 43 % (24-48) Monocytes % 6 % (0-10) Eosinophils % 2 % (0-5) Basophils % 1 % (0-3) Metamyelocytes % 2 % (0-0) Myelocytes % 2 % (0-0) Platelet Estimate Increased (ADEQUATE) Sodium Level 130 mmol/L (136-145) Potassium Level 4.1 mmol/L (3.5-5.1) Chloride Level 94 mmol/L (98-107) Carbon Dioxide Level 22 mmol/L (21-32) Anion Gap 14 (6-14) Blood Urea Nitrogen 13 mg/dL (7-20) Creatinine 1.4 mg/dL (0.6-1.0) Estimated GFR (Cockcroft-Gault) 38.2 BUN/Creatinine Ratio 9 (6-20) Glucose Level 137 mg/dL (70-99) Lactic Acid Level 2.8 mmol/L (0.4-2.0) 0.5 mmol/L (0.4-2.0) Calcium Level 9.0 mg/dL (8.5-10.1) Total Bilirubin 0.2 mg/dL (0.2-1.0) Aspartate Amino Transf (AST/SGOT) 26 U/L (15-37) Alanine Aminotransferase (ALT/SGPT) 42 U/L (14-59) Alkaline Phosphatase 139 U/L (46-116) Troponin I Quantitative < 0.017 ng/mL (0.000-0.055) Total Protein 8.3 g/dL (6.4-8.2) Albumin 4.2 g/dL (3.4-5.0) Albumin/Globulin Ratio 1.0 (1.0-1.7) Urine Collection Type Unknown Urine Color Straw Urine Clarity Clear Urine pH 5.0 Urine Specific [place] <=1.005 Urine Protein Negative mg/dL (NEG-TRACE) Urine Glucose (UA) Negative mg/dL (NEG) Urine Ketones (Stick) Negative mg/dL (NEG) Urine Blood Trace (NEG) Urine Nitrite Negative (NEG) Urine Bilirubin Negative (NEG) Urine Urobilinogen Dipstick 0.2 mg/dL (0.2 mg/dL) Urine Leukocyte Esterase Trace (NEG) Urine RBC Rare /HPF (0-2) Urine WBC 1-4 /HPF (0-4) Urine Squamous Epithelial Cells Mod /LPF Urine Bacteria Few /HPF (0-FEW) Images Images CT HEAD WO CONTRAST Indication: Sudden onset headache. Exposure: One or more of the following individualized dose reduction techniques were utilized for this examination: 1. Automated exposure control 2. Adjustment of the mA and/or kV according to patient size 3. Use of iterative reconstruction technique. Technique: Standard imaging without intravenous contrast. Comparison: None FINDINGS: No acute infarct cranial hemorrhage, mass effect, midline shift or abnormal extra-axial fluid collection. Ventricles and sulci are symmetric. Orbits appear unremarkable. No definite scalp swelling. There appear to be postsurgical changes of the sinuses. Mild fluid level within the partially visualized right maxillary sinus. No acute skull abnormality. IMPRESSION: No evidence of acute intracranial hemorrhage. Right maxillary sinus disease. VTE Prophylaxis Ordered VTE Prophylaxis Devices: No VTE Pharmacological Prophylaxi: No Assessment/Plan Assessment/Plan sepsis - elevated WBC and lactic - likely urinary source although she also appears to have acute sinusitis which in combination with dehydration is the likely cause of her CC of headache. Start Rocephin, treat her other comorbidities which are plentiful Davion FULTON MD Nov 16, 2018 12:50
[2018-11-16] MEDS ORDERED: NON FORMULARY ITEM (Albuterol Sulfate (Albuterol Sulfate Neb Soln) 1 VIAL) NEB SCH (13:00)
[2018-11-16] MEDS ORDERED: cefTRIAXone IV Push 1 GM VIAL. IVP SCH (13:00)
[2018-11-16] MEDS: FLUTICASONE 50MCG/NASAL SPRAY 16GM BOTTLE. NS SCH (13:17)
[2018-11-16] MEDS: VITAMIN E 200 UNIT CAPSULE. PO SCH (13:25)
[2018-11-16] MEDS: busPIRone 10 MG TABLET. PO SCH ×2 (13:26→21:09)
[2018-11-16] MEDS: ASPIRIN 325 MG TABLET PO SCH (13:26)
[2018-11-16] MEDS: VENLAFAXINE 75 MG TABLET. PO SCH ×2 (13:26→21:08)
[2018-11-16] MEDS: POTASSIUM CHLORIDE 20 MEQ TABLET.ER. PO SCH ×2 (13:27→17:34)
[2018-11-16] MEDS: OMEGA-3 FATTY ACIDS/FISH OIL 1,000 MG CAPSULE. PO SCH (13:27)
[2018-11-16] MEDS: ALPRAZolam 1 MG TABLET PO SCH ×3 (13:28→21:09)
[2018-11-16] MEDS: PANTOPRAZOLE 40 MG TABLET.DR. PO SCH (13:28)
[2018-11-16] MEDS: MAGNESIUM OXIDE 400 MG TABLET PO SCH ×3 (13:28→21:08)
[2018-11-16] MEDS: FUROSEMIDE 40 MG TABLET. PO SCH (13:29)
[2018-11-16] MEDS: OXYBUTYNIN CHLORIDE 5 MG TABLET PO SCH ×2 (13:29→21:08)
[2018-11-16] MEDS: tiZANidine 4 MG TABLET. PO SCH ×3 (13:29→21:08)
[2018-11-16] MEDS: GABAPENTIN 300 MG CAPSULE. PO SCH ×2 (13:30→21:08)
[2018-11-16 15:00] VITALS: BP 118/64
[2018-11-16] MEDS: ALBUTEROL SULFATE 2.5 MG/3 ML NEBU. NEB SCH ×3 (15:19→19:22)
[2018-11-16] MEDS: BUDESONIDE 0.5 MG/2 ML NEBU. NEB SCH ×2 (15:19→19:22)
[2018-11-16 19:00] VITALS: BP 97/62
[2018-11-16] MEDS: BUTALB/APAP/CAFEIN 50/325/40MG TABLET. PO PRN (19:39)
[2018-11-16] MEDS ORDERED: NON FORMULARY ITEM (Fluticasone/Salmeterol (Advair 500-50 Diskus) 1 EACH) IH SCH (21:00)
[2018-11-16] MEDS: ATORVASTATIN CALCIUM 20 MG TABLET PO SCH (21:08)
[2018-11-16] MEDS: OLANZapine 5 MG TABLET PO SCH (21:08)
[2018-11-16 23:00] VITALS: BP 90/55
[2018-11-17] MEDS: BUTALB/APAP/CAFEIN 50/325/40MG TABLET. PO PRN ×2 (02:36→22:27)
[2018-11-17 03:00] VITALS: BP 101/53
[2018-11-17] MEDS: LEVOTHYROXINE 150 MCG TABLET PO SCH (06:07)
[2018-11-17 07:00] VITALS: BP 129/74
[2018-11-17 07:12] LABS: HEMATOCRIT 31.3 % (36.0-47.0); HEMOGLOBIN 10.6 g/dL (12.0-15.5); RED BLOOD COUNT 3.3 x10^6/uL (3.50-5.40); RED CELL DISTRIBUTION WIDTH 14.3 % (11.5-14.5); WHITE BLOOD COUNT 7.1 x10^3/uL (4.0-11.0)
[2018-11-17 07:29] LABS: CALCIUM 8.5 mg/dL (8.5-10.1); CREATININE 0.9 mg/dL (0.6-1.0); GFR 63.7
[2018-11-17] MEDS: BUDESONIDE 0.5 MG/2 ML NEBU. NEB SCH ×2 (07:46→20:41)
[2018-11-17] MEDS: ALBUTEROL SULFATE 2.5 MG/3 ML NEBU. NEB SCH ×4 (07:46→20:41)
--- NOTE | 2018-11-17 08:18 | NUR ---
SW following pt for dc planning. Chart reviewed and pt lives at home. No SW needs noted at this time. Will continue to follow pt pending dc needs.
[2018-11-17] MEDS ORDERED: HYDR-2765 PO (08:41)
--- NOTE | 2018-11-17 08:49 | PDOC ---
PROGRESS NOTES Subjective Subjective Patient reports headache has improved. No other complaints at this time. Objective Objective Vital Signs Date Time Temp Pulse Resp B/P (MAP) Pulse Ox O2 Delivery O2 Flow Rate FiO2 11/17/18 07:50 97 Room Air 11/17/18 07:00 97.6 70 14 129/74 (92) 97.6 11/16/18 20:00 2.0 Intake and Output 11/17/18 06:59 Intake Total 1350 ml Balance 1350 ml Intake Oral 350 ml IV Total 1000 ml # Voids 3 Physical Exam Abdomen: Normal bowel sounds, Soft, No tenderness Heart: Regular rate Extremities: No edema General: Alert, Oriented X3, No acute distress Lungs: Other (BS mildly decreased throughout but CTA) Assessment Assessment Problems Medical Problems: (1) Headache Status: Acute (2) Lactic acidosis Status: Acute (3) Leukocytosis Status: Acute Plan Plan of Care 1. Possible sepsis - stable, afebrile. Urine culture from this admission pending. Urine culture from ER visit last week shows Klebsiella which is resistant to many meds including Rocephin but sensitive to Cipro. Will change patient to this and await results. 2. Acute sinusitis - pain resolved per patient. Continue Flonase for her known AR. 3. COPD - stable, patient is not hypoxic on RA. Has quit smoking in preparation for orthopedic surgery next week. Declines nicotine patch. Continue nebs. 4. chronic anxiety and depression - stable, continue home medications. 5. chronic back pain - stable, continue the [place] she usually takes. No further IV pain medication. Patient states she is walking pretty well and does not feel she needs PT at this time. Comment Review of Relevant I have reviewed the following items chris (where applicable) has been applied. Labs Laboratory Tests Test 11/15/18 15:15 11/15/18 16:50 11/15/18 22:55 11/17/18 05:00 White Blood Count 17.3 x10^3/uL (4.0-11.0) 7.1 x10^3/uL (4.0-11.0) Red Blood Count 4.48 x10^6/uL (3.50-5.40) 3.30 x10^6/uL (3.50-5.40) Hemoglobin 14.2 g/dL (12.0-15.5) 10.6 g/dL (12.0-15.5) Hematocrit 41.7 % (36.0-47.0) 31.3 % (36.0-47.0) Mean Corpuscular Volume 93 fL (79-100) 95 fL (79-100) Mean Corpuscular Hemoglobin 32 pg (25-35) 32 pg (25-35) Mean Corpuscular Hemoglobin Concent 34 g/dL (31-37) 34 g/dL (31-37) Red Cell Distribution Width 14.3 % (11.5-14.5) 14.3 % (11.5-14.5) Platelet Count 486 x10^3/uL (140-400) 287 x10^3/uL (140-400) Neutrophils (%) (Auto) 59 % (31-73) Lymphocytes (%) (Auto) 35 % (24-48) Monocytes (%) (Auto) 5 % (0-9) Eosinophils (%) (Auto) 1 % (0-3) Basophils (%) (Auto) 0 % (0-3) Neutrophils # (Auto) 10.1 x10^3/uL (1.8-7.7) Lymphocytes # (Auto) 6.1 x10^3/uL (1.0-4.8) Monocytes # (Auto) 0.9 x10^3/uL (0.0-1.1) Eosinophils # (Auto) 0.1 x10^3/uL (0.0-0.7) Basophils # (Auto) 0.1 x10^3/uL (0.0-0.2) Segmented Neutrophils % 43 % (35-66) Band Neutrophils % 1 % (0-9) Lymphocytes % 43 % (24-48) Monocytes % 6 % (0-10) Eosinophils % 2 % (0-5) Basophils % 1 % (0-3) Metamyelocytes % 2 % (0-0) Myelocytes % 2 % (0-0) Platelet Estimate Increased (ADEQUATE) Sodium Level 130 mmol/L (136-145) Potassium Level 4.1 mmol/L (3.5-5.1) Chloride Level 94 mmol/L (98-107) Carbon Dioxide Level 22 mmol/L (21-32) Anion Gap 14 (6-14) Blood Urea Nitrogen 13 mg/dL (7-20) Creatinine 1.4 mg/dL (0.6-1.0) Estimated GFR (Cockcroft-Gault) 38.2 BUN/Creatinine Ratio 9 (6-20) Glucose Level 137 mg/dL (70-99) Lactic Acid Level 2.8 mmol/L (0.4-2.0) 0.5 mmol/L (0.4-2.0) Calcium Level 9.0 mg/dL (8.5-10.1) Total Bilirubin 0.2 mg/dL (0.2-1.0) Aspartate Amino Transf (AST/SGOT) 26 U/L (15-37) Alanine Aminotransferase (ALT/SGPT) 42 U/L (14-59) Alkaline Phosphatase 139 U/L (46-116) Troponin I Quantitative < 0.017 ng/mL (0.000-0.055) Total Protein 8.3 g/dL (6.4-8.2) Albumin 4.2 g/dL (3.4-5.0) Albumin/Globulin Ratio 1.0 (1.0-1.7) Urine Collection Type Unknown Urine Color Straw Urine Clarity Clear Urine pH 5.0 Urine Specific [place] <=1.005 Urine Protein Negative mg/dL (NEG-TRACE) Urine Glucose (UA) Negative mg/dL (NEG) Urine Ketones (Stick) Negative mg/dL (NEG) Urine Blood Trace (NEG) Urine Nitrite Negative (NEG) Urine Bilirubin Negative (NEG) Urine Urobilinogen Dipstick 0.2 mg/dL (0.2 mg/dL) Urine Leukocyte Esterase Trace (NEG) Urine RBC Rare /HPF (0-2) Urine WBC 1-4 /HPF (0-4) Urine Squamous Epithelial Cells Mod /LPF Urine Bacteria Few /HPF (0-FEW) Test 11/17/18 05:40 Sodium Level 138 mmol/L (136-145) Potassium Level 4.0 mmol/L (3.5-5.1) Chloride Level 104 mmol/L (98-107) Carbon Dioxide Level 27 mmol/L (21-32) Anion Gap 7 (6-14) Blood Urea Nitrogen 12 mg/dL (7-20) Creatinine 0.9 mg/dL (0.6-1.0) Estimated GFR (Cockcroft-Gault) 63.7 Glucose Level 99 mg/dL (70-99) Calcium Level 8.5 mg/dL (8.5-10.1) Laboratory Tests Test 11/17/18 05:00 11/17/18 05:40 White Blood Count 7.1 x10^3/uL (4.0-11.0) Red Blood Count 3.30 x10^6/uL (3.50-5.40) Hemoglobin 10.6 g/dL (12.0-15.5) Hematocrit 31.3 % (36.0-47.0) Mean Corpuscular Volume 95 fL (79-100) Mean Corpuscular Hemoglobin 32 pg (25-35) Mean Corpuscular Hemoglobin Concent 34 g/dL (31-37) Red Cell Distribution Width 14.3 % (11.5-14.5) Platelet Count 287 x10^3/uL (140-400) Sodium Level 138 mmol/L (136-145) Potassium Level 4.0 mmol/L (3.5-5.1) Chloride Level 104 mmol/L (98-107) Carbon Dioxide Level 27 mmol/L (21-32) Anion Gap 7 (6-14) Blood Urea Nitrogen 12 mg/dL (7-20) Creatinine 0.9 mg/dL (0.6-1.0) Estimated GFR (Cockcroft-Gault) 63.7 Glucose Level 99 mg/dL (70-99) Calcium Level 8.5 mg/dL (8.5-10.1) Microbiology 11/15/18 Blood Culture - Preliminary, Resulted NO GROWTH AFTER 1 DAY Medications Current Medications Sodium Chloride 1,000 ml @ 1,000 mls/hr 1X ONCE IV Last administered on 11/15/18at 16:00; Start 11/15/18 at 16:00; Stop 11/15/18 at 16:59; Status DC Metoclopramide HCl (Reglan Vial) 10 mg 1X ONCE IV Last administered on 11/15/18at 16:00; Start 11/15/18 at 16:00; Stop 11/15/18 at 16:01; Status DC Morphine Sulfate (Morphine Sulfate) 2 mg 1X ONCE IV Last administered on 11/15/18at 16:00; Start 11/15/18 at 16:00; Stop 11/15/18 at 16:01; Status DC Morphine Sulfate (Morphine Sulfate) 2 mg 1X ONCE IV Last administered on 11/15/18at 17:15; Start 11/15/18 at 17:15; Stop 11/15/18 at 17:16; Status DC Morphine Sulfate (Morphine Sulfate) 4 mg PRN Q2HR PRN IV PAIN Last administered on 11/16/18at 17:35; Start 11/15/18 at 18:15; Stop 11/16/18 at 18:14; Status DC Sodium Chloride 1,000 ml @ 125 mls/hr Q8H IV Last administered on 11/16/18at 04:05; Start 11/15/18 at 18:03; Stop 11/16/18 at 18:02; Status DC Diphenhydramine HCl (Benadryl) 50 mg 1X ONCE IVP Last administered on 11/15/18at 18:34; Start 11/15/18 at 18:15; Stop 11/15/18 at 18:16; Status DC Ketorolac Tromethamine (Toradol 30mg Vial) 15 mg 1X ONCE IV ; Start 11/15/18 at 18:15; Stop 11/15/18 at 18:16; Status DC Ketorolac Tromethamine (Toradol 15mg Vial) 15 mg 1X ONCE IV Last administered on 11/15/18at 18:34; Start 11/15/18 at 18:15; Stop 11/15/18 at 18:16; Status DC Metoclopramide HCl (Reglan Vial) 10 mg 1X ONCE IV Last administered on 11/15/18at 19:14; Start 11/15/18 at 19:15; Stop 11/15/18 at 19:16; Status DC Alprazolam (Xanax) 1 mg QID PO Last administered on 11/16/18at 21:09; Start 11/16/18 at 13:00 Aspirin (Nader Aspirin) 325 mg DAILY PO Last administered on 11/16/18at 13:30; Start 11/16/18 at 13:00 Atorvastatin Calcium (Lipitor) 40 mg HS PO Last administered on 11/16/18at 21:09; Start 11/16/18 at 21:00 Buspirone HCl (Buspar) 10 mg BID PO Last administered on 11/16/18at 21:09; Start 11/16/18 at 13:00 Acetaminophen/ Butalbital/ Caffeine (Fioricet) 1 tab PRN Q6HRS PRN PO MIGRAINE HEADACHE Last administered on 11/17/18 02:36; Start 11/16/18 at 12:15 Furosemide (Lasix) 40 mg BID92 PO Last administered on 11/16/18 13:30; Start 11/16/18 at 14:00 Levothyroxine Sodium (Synthroid) 150 mcg DAILY06 PO Last administered on 11/17/18 06:08; Start 11/17/18 at 06:00 Magnesium Oxide (Magnesium Oxide) 400 mg QID PO Last administered on 11/16/18 21:09; Start 11/16/18 at 13:00 Olanzapine (ZyPREXA) 5 mg QHS PO Last administered on 11/16/18 21:09; Start 11/16/18 at 21:00 Tizanidine HCl (Zanaflex) 4 mg QID PO Last administered on 11/16/18 21:09; Start 11/16/18 at 13:00 Non-Formulary Medication (Albuterol Sulfate (Albuterol Sulfate Neb Soln)) 1 vial QID NEB ; Start 11/16/18 at 13:00; Status UNV Fluticasone Propionate (Flonase) 2 spray DAILY NS Last administered on 11/16/18 13:19; Start 11/16/18 at 13:00 Non-Formulary Medication (Fluticasone/ Salmeterol (Advair 500-50 Diskus)) 1 each BID IH ; Start 11/16/18 at 21:00; Status UNV Gabapentin (Neurontin) 600 mg TID PO Last administered on 11/16/18 21:09; Start 11/16/18 at 14:00 Fish Oil (Fish Oil) 1,000 mg DAILY PO Last administered on 11/16/18 13:30; Start 11/16/18 at 13:00 Pantoprazole Sodium (Protonix) 40 mg DAILYAC PO Last administered on 11/16/18 13:30; Start 11/16/18 at 13:00 Potassium Chloride (Klor-Con) 40 meq TIDWMEALS PO Last administered on 11/16/18 17:35; Start 11/16/18 at 13:00 Oxybutynin Chloride (Ditropan) 5 mg [id number] PO Last administered on 9/2/19at 21:09; Start 11/16/18 at 14:00 Venlafaxine HCl (Effexor) 75 mg TID PO Last administered on 11/16/18at 21:09; Start 11/16/18 at 13:00 Non-Formulary Medication (Venlafaxine Hcl (Venlafaxine Hcl Er)) 75 mg DAILY PO ; Start 11/17/18 at 09:00; Status UNV Vitamin E 400 unit DAILY PO Last administered on 11/16/18at 13:30; Start 11/16/18 at 13:00 Albuterol Sulfate (Ventolin Neb Soln) 2.5 mg RTQID NEB Last administered on 11/17/18at 07:46; Start 11/16/18 at 13:00 Budesonide (Pulmicort) 0.5 mg RTBID NEB Last administered on 11/17/18at 07:46; Start 11/16/18 at 13:00 Ceftriaxone Sodium (Rocephin) 1 gm Q24H IVP Last administered on 11/16/18at 13:19; Start 11/16/18 at 13:00 Acetaminophen/ Hydrocodone Bitart (Lortab 7.5/325) 1 tab PRN Q6HRS PRN PO PAIN; Start 11/17/18 at 08:45 Active Scripts Active Hydrocodone-Apap 7.5-325 (Hydrocodone Bit/Acetaminophen) 1 Tab Tablet 1 Tab PO PRN Q6HRS PRN 30 Days Cghacd-Ljsarbvs-Jyfd 50-325-40 (Butalb/Acetaminophen/Caffeine) 1 Each Tablet 1 Each PO Q6HRS PRN Levothyroxine Sodium 150 Mcg Tablet 1 Tab PO DAILY Reported Nitrofurantoin (Nitrofurantoin Macrocrystal) 100 Mg Capsule 1 Cap PO BID Venlafaxine Hcl Er (Venlafaxine Hcl) 75 Mg Cap.er.24h 75 Mg PO DAILY Flonase Allergy Relief (Fluticasone Propionate) 9.9 Ml [place].susp 2 Sprays NS DAILY Albuterol Sulfate Neb Soln (Albuterol Sulfate) 0.63 Mg/3 Ml Vial.neb 1 Vial NEB QID Detrol La (Tolterodine Tartrate) 2 Mg Cap.er.24h 1 Cap PO BID Olanzapine 5 Mg Tablet 1 Tab PO QHS Buspirone Hcl 10 Mg Tablet 1 Tab PO BID Effexor Xr (Venlafaxine Hcl) 150 Mg Cap.er.24h 1 Cap PO DAILY Atorvastatin Calcium 20 Mg Tablet 40 Mg PO HS Vitamin E 400 Unit Capsule 400 Unit PO DAILY Fish Oil ([place]-3 Fatty Acids) 500 Mg Capsule 500 Mg PO DAILY Magnesium Oxide 400 Mg Tablet 400 Mg PO QID Xanax (Alprazolam) 1 Mg Tablet 1 Mg PO QID Lasix (Furosemide) 40 Mg Tablet 40 Mg PO BID92 Aspirin 325 Mg Tablet 325 Mg PO DAILY Gabapentin 600 Mg Tablet 600 Mg PO TID Tizanidine Hcl 4 Mg Tablet 4 Mg PO QID Omeprazole 20 Mg Tablet.dr 20 Mg PO DAILY07 Klor-Con (Potassium Chloride) 20 Meq Packet 40 Meq PO TID Proair Hfa Inhaler (Albuterol Sulfate) 8.5 Gm Hfa.aer.ad 8.5 Gm IH Q4HRS PRN Advair 500-50 Diskus (Fluticasone/Salmeterol) 1 Each Disk.w.dev 1 Each IH BID Vitals/I & O Vital Sign - Last 24 Hours 11/16/18 11/16/18 11/16/18 11/16/18 10:35 10:37 10:42 11:00 Temp 98.6 98.6 Pulse 73 Resp 20 20 16 20 B/P (MAP) 112/64 (80) Pulse Ox 96 96 96 97 O2 Delivery Room Air Room Air Room Air Nasal Cannula O2 Flow Rate 2.0 11/16/18 11/16/18 11/16/18 11/16/18 11:56 13:19 15:00 15:12 Temp 97.9 97.9 Pulse 74 Resp 20 20 18 20 B/P (MAP) 118/64 (82) Pulse Ox 97 97 96 97 O2 Delivery Room Air Room Air Room Air Room Air 11/16/18 11/16/18 11/16/18 11/16/18 15:19 15:19 16:18 17:35 Resp 20 20 20 Pulse Ox 96 97 96 96 O2 Delivery Room Air Room Air Room Air Room Air O2 Flow Rate 2.0 11/16/18 11/16/18 11/16/18 11/16/18 19:00 19:22 20:00 23:00 Temp 98.0 98.1 98.0 98.1 Pulse 83 76 Resp 20 18 B/P (MAP) 97/62 (74) 90/55 (67) Pulse Ox 93 96 95 O2 Delivery Room Air Room Air Room Air Room Air O2 Flow Rate 2.0 11/17/18 11/17/18 11/17/18 11/17/18 03:00 07:00 07:48 07:50 Temp 97.7 97.6 97.7 97.6 Pulse 70 70 Resp 18 14 B/P (MAP) 101/53 (69) 129/74 (92) Pulse Ox 94 95 97 97 O2 Delivery Room Air Room Air Room Air Room Air Intake and Output 11/16/18 11/16/18 11/17/18 14:59 22:59 06:59 Intake Total 1000 ml 150 ml 200 ml Balance 1000 ml 150 ml 200 ml NICOLAS HICKS MD Nov 17, 2018 08:49
[2018-11-17] MEDS ORDERED: NON FORMULARY ITEM (Venlafaxine Hcl (Venlafaxine Hcl Er) 75 MG) PO SCH (09:00)
--- NOTE | 2018-11-17 09:06 | NUR ---
IP: Pt is + for (R) Kleb. pneumoniae with ESBL in urine on 11/09/18 requiring pt to be in contact precautions.
--- NOTE | 2018-11-17 09:35 | EKG ---
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
[2018-11-17] MEDS: VENLAFAXINE 75 MG TABLET. PO SCH ×3 (09:44→21:15)
[2018-11-17] MEDS: OMEGA-3 FATTY ACIDS/FISH OIL 1,000 MG CAPSULE. PO SCH (09:44)
[2018-11-17] MEDS: PANTOPRAZOLE 40 MG TABLET.DR. PO SCH (09:44)
[2018-11-17] MEDS: CIPROFLOXACIN HCL 250 MG TABLET. PO SCH ×2 (09:44→21:15)
[2018-11-17] MEDS: ASPIRIN 325 MG TABLET PO SCH (09:44)
[2018-11-17] MEDS: busPIRone 10 MG TABLET. PO SCH ×2 (09:44→21:15)
[2018-11-17] MEDS: GABAPENTIN 300 MG CAPSULE. PO SCH ×3 (09:45→21:15)
[2018-11-17] MEDS: tiZANidine 4 MG TABLET. PO SCH ×4 (09:45→21:16)
[2018-11-17] MEDS: FUROSEMIDE 40 MG TABLET. PO SCH ×2 (09:45→13:51)
[2018-11-17] MEDS: OXYBUTYNIN CHLORIDE 5 MG TABLET PO SCH ×3 (09:45→21:15)
[2018-11-17] MEDS: MAGNESIUM OXIDE 400 MG TABLET PO SCH ×4 (09:45→21:15)
[2018-11-17] MEDS: ALPRAZolam 1 MG TABLET PO SCH ×4 (09:46→21:16)
[2018-11-17] MEDS: VITAMIN E 200 UNIT CAPSULE. PO SCH (09:46)
[2018-11-17] MEDS: FLUTICASONE 50MCG/NASAL SPRAY 16GM BOTTLE. NS SCH (09:47)
[2018-11-17] MEDS: POTASSIUM CHLORIDE 20 MEQ TABLET.ER. PO SCH ×3 (09:53→16:40)
[2018-11-17] MEDS: HYDROcodone/APAP 7.5/325MG 1 TAB TABLET PO PRN ×2 (10:05→16:41)
[2018-11-17 11:00] VITALS: BP 134/68
[2018-11-17 15:00] VITALS: BP 88/47
[2018-11-17 19:00] VITALS: BP 83/50
[2018-11-17] MEDS: LACTOBACILLUS RHAMNOSUS GG 1 CAPSULE. PO SCH (21:15)
[2018-11-17] MEDS: OLANZapine 5 MG TABLET PO SCH (21:15)
[2018-11-17] MEDS: ATORVASTATIN CALCIUM 20 MG TABLET PO SCH (21:15)
[2018-11-17 23:00] VITALS: BP 95/49
[2018-11-18 03:00] VITALS: BP 95/58
[2018-11-18] MEDS: LEVOTHYROXINE 150 MCG TABLET PO SCH (06:01)
[2018-11-18 07:00] VITALS: BP 152/74
[2018-11-18] MEDS: HYDROcodone/APAP 7.5/325MG 1 TAB TABLET PO PRN (07:16)
[2018-11-18] MEDS: BUDESONIDE 0.5 MG/2 ML NEBU. NEB SCH (07:40)
[2018-11-18] MEDS: ALBUTEROL SULFATE 2.5 MG/3 ML NEBU. NEB SCH (07:40)
[2018-11-18] MEDS: CIPROFLOXACIN HCL 250 MG TABLET. PO SCH (08:29)
[2018-11-18] MEDS: VITAMIN E 200 UNIT CAPSULE. PO SCH (08:30)
[2018-11-18] MEDS: POTASSIUM CHLORIDE 20 MEQ TABLET.ER. PO SCH (08:30)
[2018-11-18] MEDS: GABAPENTIN 300 MG CAPSULE. PO SCH (08:30)
[2018-11-18] MEDS: LACTOBACILLUS RHAMNOSUS GG 1 CAPSULE. PO SCH (08:30)
[2018-11-18] MEDS: tiZANidine 4 MG TABLET. PO SCH (08:30)
[2018-11-18] MEDS: VENLAFAXINE 75 MG TABLET. PO SCH (08:30)
[2018-11-18] MEDS: ALPRAZolam 1 MG TABLET PO SCH (08:30)
[2018-11-18] MEDS: ASPIRIN 325 MG TABLET PO SCH (08:30)
[2018-11-18] MEDS: PANTOPRAZOLE 40 MG TABLET.DR. PO SCH (08:30)
[2018-11-18] MEDS: busPIRone 10 MG TABLET. PO SCH (08:30)
[2018-11-18] MEDS: OMEGA-3 FATTY ACIDS/FISH OIL 1,000 MG CAPSULE. PO SCH (08:30)
[2018-11-18] MEDS: MAGNESIUM OXIDE 400 MG TABLET PO SCH (08:30)
[2018-11-18] MEDS: OXYBUTYNIN CHLORIDE 5 MG TABLET PO SCH (08:31)
[2018-11-18] MEDS: FUROSEMIDE 40 MG TABLET. PO SCH (08:31)
--- NOTE | 2018-11-18 08:32 | PDOC ---
PROGRESS NOTES Subjective Subjective Patient states she feels much better, ready to go home today. Objective Objective Vital Signs Date Time Temp Pulse Resp B/P (MAP) Pulse Ox O2 Delivery O2 Flow Rate FiO2 11/18/18 07:42 95 Room Air 11/18/18 03:00 97.8 65 20 95/58 (70) 97.8 11/17/18 16:41 2.0 Intake and Output 11/18/18 06:59 Intake Total 600 ml Balance 600 ml Intake Oral 600 ml # Voids 5 Physical Exam Abdomen: Normal bowel sounds, Soft, No tenderness Heart: Regular rate Extremities: No edema General: Alert, Oriented X3, No acute distress Lungs: Clear to auscultation Assessment Assessment Problems Medical Problems: (1) Headache Status: Acute (2) Lactic acidosis Status: Acute (3) Leukocytosis Status: Acute Plan Plan of Care 1, Sepsis with UTI - afebrile, feels much better. Blood cultures negative to date. Urine culture from this admission still pending, will continue to treat based on recent positive urine culture from ER visit. Home on , patient advised to call our office Friday for final culture report. 2. Acute sinusitis with AR - improved, continue present medications. 3. COPD - stable. 4. chronic anxiety and depression - well controlled with her usual medications. 5. chronic back pain - stable with po pain meds. Comment Review of Relevant I have reviewed the following items chris (where applicable) has been applied. Labs Laboratory Tests Test 11/17/18 05:00 11/17/18 05:40 White Blood Count 7.1 x10^3/uL (4.0-11.0) Red Blood Count 3.30 x10^6/uL (3.50-5.40) Hemoglobin 10.6 g/dL (12.0-15.5) Hematocrit 31.3 % (36.0-47.0) Mean Corpuscular Volume 95 fL (79-100) Mean Corpuscular Hemoglobin 32 pg (25-35) Mean Corpuscular Hemoglobin Concent 34 g/dL (31-37) Red Cell Distribution Width 14.3 % (11.5-14.5) Platelet Count 287 x10^3/uL (140-400) Sodium Level 138 mmol/L (136-145) Potassium Level 4.0 mmol/L (3.5-5.1) Chloride Level 104 mmol/L (98-107) Carbon Dioxide Level 27 mmol/L (21-32) Anion Gap 7 (6-14) Blood Urea Nitrogen 12 mg/dL (7-20) Creatinine 0.9 mg/dL (0.6-1.0) Estimated GFR (Cockcroft-Gault) 63.7 Glucose Level 99 mg/dL (70-99) Calcium Level 8.5 mg/dL (8.5-10.1) Microbiology 11/15/18 Blood Culture - Preliminary, Resulted NO GROWTH AFTER 2 DAYS Medications Current Medications Sodium Chloride 1,000 ml @ 1,000 mls/hr 1X ONCE IV Last administered on 11/15/18at 16:00; Start 11/15/18 at 16:00; Stop 11/15/18 at 16:59; Status DC Metoclopramide HCl (Reglan Vial) 10 mg 1X ONCE IV Last administered on 11/15/18at 16:00; Start 11/15/18 at 16:00; Stop 11/15/18 at 16:01; Status DC Morphine Sulfate (Morphine Sulfate) 2 mg 1X ONCE IV Last administered on 11/15/18at 16:00; Start 11/15/18 at 16:00; Stop 11/15/18 at 16:01; Status DC Morphine Sulfate (Morphine Sulfate) 2 mg 1X ONCE IV Last administered on 11/15/18at 17:15; Start 11/15/18 at 17:15; Stop 11/15/18 at 17:16; Status DC Morphine Sulfate (Morphine Sulfate) 4 mg PRN Q2HR PRN IV PAIN Last administered on 11/16/18at 17:35; Start 11/15/18 at 18:15; Stop 11/16/18 at 18:14; Status DC Sodium Chloride 1,000 ml @ 125 mls/hr Q8H IV Last administered on 11/16/18at 04:05; Start 11/15/18 at 18:03; Stop 11/16/18 at 18:02; Status DC Diphenhydramine HCl (Benadryl) 50 mg 1X ONCE IVP Last administered on 11/15/18at 18:34; Start 11/15/18 at 18:15; Stop 11/15/18 at 18:16; Status DC Ketorolac Tromethamine (Toradol 30mg Vial) 15 mg 1X ONCE IV ; Start 11/15/18 at 18:15; Stop 11/15/18 at 18:16; Status DC Ketorolac Tromethamine (Toradol 15mg Vial) 15 mg 1X ONCE IV Last administered on 11/15/18 18:34; Start 11/15/18 at 18:15; Stop 11/15/18 at 18:16; Status DC Metoclopramide HCl (Reglan Vial) 10 mg 1X ONCE IV Last administered on 11/15/18at 19:14; Start 11/15/18 at 19:15; Stop 11/15/18 at 19:16; Status DC Alprazolam (Xanax) 1 mg QID PO Last administered on 11/17/18 21:16; Start at 13:00 Aspirin (Nader Aspirin) 325 mg DAILY PO Last administered on 11/17/18 09:47; Start 11/16/18 at 13:00 Atorvastatin Calcium (Lipitor) 40 mg HS PO Last administered on 11/17/18 21:16; Start 11/16/18 at 21:00 Buspirone HCl (Buspar) 10 mg BID PO Last administered on 11/17/18 21:16; Start 11/16/18 at 13:00 Acetaminophen/ Butalbital/ Caffeine (Fioricet) 1 tab PRN Q6HRS PRN PO MIGRAINE HEADACHE Last administered on 11/17/18 22:28; Start 11/16/18 at 12:15 Furosemide (Lasix) 40 mg BID92 PO Last administered on 11/17/18 13:54; Start 11/16/18 at 14:00 Levothyroxine Sodium (Synthroid) 150 mcg DAILY06 PO Last administered on 9at 06:02; Start 11/17/18 at 06:00 Magnesium Oxide (Magnesium Oxide) 400 mg QID PO Last administered on 11/17/18 21:16; Start 11/16/18 at 13:00 Olanzapine (ZyPREXA) 5 mg QHS PO Last administered on 11/17/18 21:16; Start 11/16/18 at 21:00 Tizanidine HCl (Zanaflex) 4 mg QID PO Last administered on 11/17/18 21:16; Start 11/16/18 at 13:00 Non-Formulary Medication (Albuterol Sulfate (Albuterol Sulfate Neb Soln)) 1 vial QID NEB ; Start 11/16/18 at 13:00; Status UNV Fluticasone Propionate (Flonase) 2 spray DAILY NS Last administered on 11/17/18 09:47; Start 11/16/18 at 13:00 Non-Formulary Medication (Fluticasone/ Salmeterol (Advair 500-50 Diskus)) 1 each BID IH ; Start 11/16/18 at 21:00; Status UNV Gabapentin (Neurontin) 600 mg TID PO Last administered on 11/17/18 21:16; Start 11/16/18 at 14:00 Fish Oil (Fish Oil) 1,000 mg DAILY PO Last administered on 11/17/18 09:47; Start 11/16/18 at 13:00 Pantoprazole Sodium (Protonix) 40 mg DAILYAC PO Last administered on 11/17/18 09:47; Start 11/16/18 at 13:00 Potassium Chloride (Klor-Con) 40 meq TIDWMEALS PO Last administered on 11/17/18 16:41; Start 11/16/18 at 13:00 Oxybutynin Chloride (Ditropan) 5 mg [id number] PO Last administered on 11/17/18 21:16; Start 11/16/18 at 14:00 Venlafaxine HCl (Effexor) 75 mg TID PO Last administered on 11/17/18 21:16; Start 11/16/18 at 13:00 Non-Formulary Medication (Venlafaxine Hcl (Venlafaxine Hcl Er)) 75 mg DAILY PO ; Start 11/17/18 at 09:00; Status UNV Vitamin E 400 unit DAILY PO Last administered on 11/17/18 09:47; Start 11/16/18 at 13:00 Albuterol Sulfate (Ventolin Neb Soln) 2.5 mg RTQID NEB Last administered on 11/18/18 07:41; Start 11/16/18 at 13:00 Budesonide (Pulmicort) 0.5 mg RTBID NEB Last administered on 11/18/18 07:41; Start 11/16/18 at 13:00 Ceftriaxone Sodium (Rocephin) 1 gm Q24H IVP Last administered on 11/16/18at 13:19; Start 11/16/18 at 13:00; Stop 11/17/18 at 08:45; Status DC Acetaminophen/ Hydrocodone Bitart (Lortab 7.5/325) 1 tab PRN Q6HRS PRN PO PAIN Last administered on 11/18/18at 07:16; Start 11/17/18 at 08:45 Ciprofloxacin (Cipro) 250 mg BID PO Last administered on 11/17/18at 21:16; Start 11/17/18 at 09:00 Lactobacillus Rhamnosus (Culturelle) 1 cap BID PO Last administered on 11/17/18at 21:16; Start 11/17/18 at 21:00 Active Scripts Active Hydrocodone-Apap 7.5-325 (Hydrocodone Bit/Acetaminophen) 1 Tab Tablet 1 Tab PO PRN Q6HRS PRN 30 Days Fhlfqj-Xbbacdmq-Qagq 50-325-40 (Butalb/Acetaminophen/Caffeine) 1 Each Tablet 1 Each PO Q6HRS PRN Levothyroxine Sodium 150 Mcg Tablet 1 Tab PO DAILY Reported Nitrofurantoin (Nitrofurantoin Macrocrystal) 100 Mg Capsule 1 Cap PO BID Venlafaxine Hcl Er (Venlafaxine Hcl) 75 Mg Cap.er.24h 75 Mg PO DAILY Flonase Allergy Relief (Fluticasone Propionate) 9.9 Ml [place].susp 2 Sprays NS DAILY Albuterol Sulfate Neb Soln (Albuterol Sulfate) 0.63 Mg/3 Ml Vial.neb 1 Vial NEB QID Detrol La (Tolterodine Tartrate) 2 Mg Cap.er.24h 1 Cap PO BID Olanzapine 5 Mg Tablet 1 Tab PO QHS Buspirone Hcl 10 Mg Tablet 1 Tab PO BID Effexor Xr (Venlafaxine Hcl) 150 Mg Cap.er.24h 1 Cap PO DAILY Atorvastatin Calcium 20 Mg Tablet 40 Mg PO HS Vitamin E 400 Unit Capsule 400 Unit PO DAILY Fish Oil ([place]-3 Fatty Acids) 500 Mg Capsule 500 Mg PO DAILY Magnesium Oxide 400 Mg Tablet 400 Mg PO QID Xanax (Alprazolam) 1 Mg Tablet 1 Mg PO QID Lasix (Furosemide) 40 Mg Tablet 40 Mg PO BID92 Aspirin 325 Mg Tablet 325 Mg PO DAILY Gabapentin 600 Mg Tablet 600 Mg PO TID Tizanidine Hcl 4 Mg Tablet 4 Mg PO QID Omeprazole 20 Mg Tablet.dr 20 Mg PO DAILY07 Klor-Con (Potassium Chloride) 20 Meq Packet 40 Meq PO TID Proair Hfa Inhaler (Albuterol Sulfate) 8.5 Gm Hfa.aer.ad 8.5 Gm IH Q4HRS PRN Advair 500-50 Diskus (Fluticasone/Salmeterol) 1 Each Disk.w.dev 1 Each IH BID Vitals/I & O Vital Sign - Last 24 Hours 11/17/18 11/17/18 11/17/18 11/17/18 10:05 11:00 11:37 15:00 Temp 98.1 98.1 98.1 98.1 Pulse 80 72 Resp 20 16 16 B/P (MAP) 134/68 (90) 88/47 (61) Pulse Ox 97 96 98 O2 Delivery Room Air Room Air Room Air Room Air 11/17/18 11/17/18 11/17/18 11/17/18 16:41 19:00 20:00 20:42 Temp 97.4 97.4 Pulse 78 Resp 20 20 B/P (MAP) 83/50 (61) Pulse Ox 98 96 O2 Delivery Room Air Room Air Room Air Room Air O2 Flow Rate 2.0 11/17/18 11/18/18 11/18/18 23:00 03:00 07:42 Temp 97.9 97.8 97.9 97.8 Pulse 69 65 Resp 20 20 B/P (MAP) 95/49 (64) 95/58 (70) Pulse Ox 97 95 95 O2 Delivery Room Air Room Air Room Air Intake and Output 11/17/18 11/17/18 11/18/18 14:59 22:59 06:59 Intake Total 200 ml 400 ml Balance 200 ml 400 ml NICOLAS HICKS MD Nov 18, 2018 08:32
[2018-11-18] MEDS: FLUTICASONE 50MCG/NASAL SPRAY 16GM BOTTLE. NS SCH (08:33)
[2018-11-18] MEDS ORDERED: CIPR250T30 PO (08:36)
--- NOTE | 2018-11-18 09:02 | DS ---
DATE OF DISCHARGE: 11/18/2018 CHIEF COMPLAINT: Headache and malaise. HISTORY OF PRESENT ILLNESS: The patient is a 63-year-old female, who presented to the Emergency Room with the above complaint. The patient was initially seen in the Emergency Room on 11/08/2018 and diagnosed with urinary tract infection. She had been discharged home on Keflex for treatment of this. She had been called by the Emergency Department several days later when the final urine culture report was available. This showed Klebsiella, which was resistant to the Keflex. She was changed to Macrobid. She reported that she had been taking this, but she had the onset of a headache and became increasingly uncomfortable with this. Evaluation in the Emergency Room showed the possibility of sepsis from UTI with elevated white blood count and elevated lactic acid. Treatment was started and she was admitted for further care. HOSPITAL COURSE: The patient was started on Rocephin. She had a prompt improvement in her lactic acid and her vital signs. Her headache was treated with several different pain medications and it seemed to do well with Fioricet. A CT of the head did show a mild acute sinusitis also. The patient's antibiotic was changed to p.o. Cipro to cover for the possible persistence of the multidrug-resistant Klebsiella from the Emergency Room culture. Blood cultures are negative to date. Urine culture is still pending from this admission. The patient's headache has resolved. She is eating a regular diet with a good appetite and states that she feels much better. She will be discharged to home on Cipro and is advised to call our office on Friday for final culture report. The patient's chronic medical conditions including COPD, chronic anxiety, depression, and chronic back pain all remained stable with her usual medications and these are continued. FINAL DIAGNOSES: 1. Sepsis with urinary tract infection. 2. Acute sinusitis. 3. Allergic rhinitis. 4. Chronic obstructive pulmonary disease. 5. Chronic anxiety and depression. 6. Chronic back pain. DISCHARGE MEDICATIONS: Cipro 250 mg b.i.d. x 7 days, then discontinue. Her other home medications remain unchanged from admission. FOLLOWUP VISITS: Followup is with Dr. Leon as needed. To call our office Friday for final urine culture report. NICOLAS LEON MD DR: HANNAH/joshua JOB#: [id number] / [id number] MICHELLE
--- NOTE | 2018-11-18 09:50 | NUR ---
Patient was discharged from the unit at 0955. Patient was escorted by staff off the unit in a wheelchair to a private vehicle driven by her spouse. Patient did not have any questions regarding her discharge information and confirmed she had all her belongings prior to dismissal.
== END 2018-11-18 09:55 | disposition home or self-care (01) | DRG 871 ==
LOC: ER 14:23 → OBSVTOIN 17:55 → ED HOLD 17:55 → 5 SOUTH 20:13
PROVIDERS: ADMIT Family Medicine; ATTEND Family Medicine
DX: A41.9 Sepsis, unspecified organism (principal); N17.0 Acute kidney failure with tubular necrosis; E87.2 Acidosis; N39.0 Urinary tract infection, site not specified; J44.9 Chronic obstructive pulmonary disease, unspecified; E03.9 Hypothyroidism, unspecified; E78.5 Hyperlipidemia, unspecified; E86.0 Dehydration; F32.9 Major depressive disorder, single episode, unspecified; F41.9 Anxiety disorder, unspecified; G89.29 Other chronic pain; I11.0 Hypertensive heart disease with heart failure; I25.10 Atherosclerotic heart disease of native coronary artery without angina pectoris; I50.9 Heart failure, unspecified; B96.1 Klebsiella pneumoniae [K. pneumoniae] as the cause of diseases classified elsewhere; J01.90 Acute sinusitis, unspecified; J30.9 Allergic rhinitis, unspecified; K21.9 Gastro-esophageal reflux disease without esophagitis; Z82.3 Family history of stroke; Z86.73 Personal history of transient ischemic attack (TIA), and cerebral infarction without residual deficits; Z90.710 Acquired absence of both cervix and uterus; Z95.5 Presence of coronary angioplasty implant and graft; Z96.649 Presence of unspecified artificial hip joint; I25.2 Old myocardial infarction; Z88.8 Allergy status to other drugs, medicaments and biological substances; Z90.49 Acquired absence of other specified parts of digestive tract
CPT/HCPCS: 36415; 70450; 80048; 80053; 81001; 83605; 84484; 85007; 85025; 85027; 87040; 87086; 93005; 94640; 94760; J0696; J1200; J1885; J2270; J2765; J7030; J7613; J7626; 99285-25; G0378

== ENCOUNTER → 2018-11-23 | Outpatient (CLI) | payer OTHER ==
[2018-11-18 07:00] VITALS: BP 152/74
[~2018-11-23] MED LIST changes: +FURO40TA4 PO; +NITR100C PO; +REGADENOSON 0.4 MG/5 ML DISP.SYRIN. IV ONE
--- NOTE | 2018-11-23 13:40 | RAD ---
MR#: [id number] Date of Study: 11/23/2018 Ordering Physician: PACO QUIGLEY, Referring Physician: BRENT EAST Tech: DOROTHEA Teran, ARRT (R) (N) APPROVED REPORT Test Type: Pharmacological Stress Nurse/Tech: Gail Briseno RN Test Indications: CAD, Preop clearance (hip surgery) Cardiac History: [place] and stent 2006, stroke 2006, COPD,former smoker Medications: See Electronic Medical Record Medical History: See Electronic Medical Record Resting ECG: SR Resting Heart Rate: 92 bpm Resting Blood Pressure: 109/70mmHg Pretest Chest Pain: No chest pain Nurse/Tech Notes S1,S2 and lungs clear to auscultation. Consent: The procedure was explained to the patient in lay terms. Informed consent was witnessed. Puneet eout was entered into [employer]. History and Stress Test performed by RT Angel (R) (N) Pharm. Details Pharmacologic stress testing was performed using 0.4mg per 5ml of regadenoson given intravenously ove r 7-10 seconds. Stress Symptoms Dizziness POST EXERCISE Reason for Termination: Infusion complete Target HR: No Max HR: 100 bpm Max Blood Pressure: 115/64mmHg Blood Pressure response to exercise: Normal blood pressure response during stress. Heart Rate response to exercise: WNL Chest Pain: No. Arrhythmia: No. ST Change: No. INTERPRETATION Stress EKG Conclusion: The resting EKG shows a sinus rhythm and nonspecific ST-T wave changes. The stress EKG shows no significant changes from baseline. No EKG evidence of stressed induced ischemia. Imaging Protocol IMAGE PROTOCOL: Rest Tc-99m/stress Tc-99m 1 day Rest: Stress: Viability: Radiopharm.Tc99m AcpsiauauSl72m Sestamibi Prky96cWa 30.2mCi Img Date 11/23/2018 11/23/2018 Inj-Img Ddvq08oxm. 60min. Rest Admin Site:IV - Right AntecubitalAdministrator:RT Angel (R)(N) Stress Admin Site: IV - Right AntecubitalAdministrator: Brenda Barlow, RT (R)(N) STRESS DATA End Diast. Vol.62.0mlLVEDV index BSA29.0ml End Syst. Vol.10.0mlLVESV index BSA5.0ml Myocardial Uxst326.0gEject. Raloodpu59.0% Stress Scores Regional WT1.00Summed WT4.00 Regional WM0.00Summed WM0.00 LV Perfusion Stress scans show no significant defects. Rest scans showed no significant defects. Nuclear imaging shows no reversible ischemia or infarct. Wall Motion Left ventricular systolic function is normal with no regional wall motion abnormalities and an ejecti on fraction of greater than 70%. LV Perf. Quant 17 Seg. SSS0.00 17 Seg. SRS0.00 17 Seg. SDS0.00 Stress Defect Extent (% LAD)0.00Rest Defect Extent (% LAD)0.00Rev. Defect Extent (% LAD)0.00 Stress Defect Extent (% LCX) 0.00Rest Defect Extent (% LCX)0.00Rev. Defect Extent (% LCX)0.00 Stress Defect Extent (% RCA)0.00Rest Defect Extent (% RCA)0.00Rev. Defect Extent (% RCA)0.00 Stress Defect Extent (% SUJEY)0.00Rest Defect Extent (% SUJEY)0.00Rev. Defect Extent (% SUJEY)0.00 IMPRESSION LV Viability Summary: Significantly viable myocardium, Potentially viable myocardium, Non-viable myoc ardium Conclusion 1. No EKG evidence of stressed induced ischemia. 2. Nuclear imaging shows no reversible ischemia or infarct. 3. Normal left ventricular systolic function with an ejection fraction of greater than 70%. 4. Low risk Lexiscan nuclear stress test. Signed by : Giovanni Sommer MD Electronically Approved : 11/23/2018 13:40:06
== END | disposition home or self-care (01) ==
LOC: NM 10:20
PROVIDERS: ATTEND Internal Medicine Cardiovascular Disease
DX: I25.10 Atherosclerotic heart disease of native coronary artery without angina pectoris (principal); J44.9 Chronic obstructive pulmonary disease, unspecified; I25.2 Old myocardial infarction; Z95.5 Presence of coronary angioplasty implant and graft; Z87.891 Personal history of nicotine dependence; Z86.73 Personal history of transient ischemic attack (TIA), and cerebral infarction without residual deficits
CPT/HCPCS: 78452; 93017; A9500; J2785

== ENCOUNTER 2019-07-16 19:13 | Emergency (ER) | payer OTHER ==
[~2019-07-16] VITALS: Ht 174 cm; Wt 96.3 kg
[~2019-07-16 19:13] MED LIST changes: +LINE600T12 PO; -LINE600T37 PO; -MAGN400T3 PO; +MAGN400T5 PO; -REGADENOSON 0.4 MG/5 ML DISP.SYRIN. IV ONE; +SIMV20TA18 PO; -SIMV20TA3 PO
[2019-07-16 19:57] LABS: BASO # 0.1 x10^3/uL (0.0-0.2); BASO % 1 % (0-3); EOS # 0.1 x10^3/uL (0.0-0.7); EOS % 1 % (0-3); HEMOGLOBIN 12.6 g/dL (12.0-15.5); LYMPH # 2.9 x10^3/uL (1.0-4.8); LYMPH % 25 % (24-48); MEAN CORPUSCULAR HEMOGLOBIN 29 pg (25-35); MEAN CORPUSCULAR HGB CONC 33 g/dL (31-37); MEAN CORPUSCULAR VOLUME 88 fL (79-100); MONO # 0.6 x10^3/uL (0.0-1.1); MONO % 6 % (0-9); NEUT # 7.6 x10^3/uL (1.8-7.7); NEUT % 68 % (31-73); PLATELET COUNT 435 x10^3/uL (140-400); RED CELL DISTRIBUTION WIDTH 13.7 % (11.5-14.5); WHITE BLOOD COUNT 11.3 x10^3/uL (4.0-11.0)
[2019-07-16] MEDS: IV NORMAL SALINE 1000ML BAG 1,000 ML IV SCH (19:59)
[2019-07-16] MEDS: ONDANSETRON PF 4 MG/2 ML VIAL. IVP ONE (19:59)
[2019-07-16] MEDS: ORPHENADRINE CITRATE 60 MG/2 ML VIAL. IV ONE (19:59)
[2019-07-16 20:06] LABS: CALCIUM 8.7 mg/dL (8.5-10.1); CREATININE 1.1 mg/dL (0.6-1.0); GFR 50.5; POTASSIUM 3.8 mmol/L (3.5-5.1)
[2019-07-16 20:12] LABS: ALBUMIN 3.4 g/dL (3.4-5.0); ALBUMIN/GLOBULIN RATIO 0.9 (1.0-1.7); TOTAL BILIRUBIN 0.2 mg/dL (0.2-1.0)
[2019-07-16 20:21] LABS: BILIRUBIN,URINE NEGATIVE (NEG); CLARITY,URINE CLEAR; COLOR,URINE YELLOW; NITRITE,URINE NEGATIVE (NEG); PROTEIN,URINE NEGATIVE (NEG-TRACE); UROBILINOGEN,URINE 0.2 mg/dL (0.2 mg/dL)
[2019-07-16 20:26] LABS: BACTERIA,URINE 0 /HPF (0-FEW); RBC,URINE OCC /HPF (0-2); WBC,URINE 0 /HPF (0-4)
[2019-07-16 20:27] LABS: SQUAMOUS EPITHELIAL CELL,UR FEW /LPF
--- NOTE | 2019-07-16 20:55 | PHYS DOC ---
Past Medical History Past Medical History: CHF, COPD, [place], Stroke Additional Past Medical Histor: "C.diffRotted colon out.I have an ileostomy.",R HIP DISLOCATIONS Past Surgical History: Hip Replacement, Knee Replacement Additional Past Surgical Histo: Back SX, L ROTA, Cardiac stent,COLON\\RECTUM, BX KNEE, BX THUMB JOINT, R HIP Smoking Status: Current Every Day Smoker Alcohol Use: None Drug Use: None General Adult EDM: Chief Complaint: OTHER COMPLAINTS HPI: HPI: Patient is a 63 year old female who presents with complaint of painful urination as well as lower back pain for the last 4 days. Patient recently was started on some antibiotics for UTI. She states that she was instructed to come into the emergency room because she is having some difficulty with the antibiotic that she is taking. She states the pain in her back is getting worse and she rates it at a 10 out of 10. She denies any fever. She denies any chest pain or shortness of breath.[] Review of Systems: Review of Systems: Constitutional: Denies fever or chills. [] Respiratory: Denies cough or shortness of breath. [] Cardiovascular: Denies chest pain or edema. [] GI: Complains of suprapubic pain without vomiting or diarrhea. [] : Complains of dysuria. [] Musculoskeletal: Complains of lower back pain. [] Integument: Denies rash. [] Neurologic: Denies headache, focal weakness or sensory changes. [] A full 10 point review of systems has been reviewed and is otherwise negative except as noted in history of present illness. Heart Score: Risk Factors: Risk Factors: DM, Current or recent (<one month) smoker, HTN, HLP, family his tory of CAD, obesity. Risk Scores: Score 0 - 3: 2.5% MACE over next 6 weeks - Discharge Home Score 4 - 6: 20.3% MACE over next 6 weeks - Admit for Clinical Observation Score 7 - 10: 72.7% MACE over next 6 weeks - Early Invasive Strategies Current Medications: Current Medications Medications (Trade) Dose Ordered Sig/Joel Start Time Stop Time Status Last Admin Dose Admin Fentanyl Citrate (Fentanyl 2ml Vial) 50 mcg 1X ONCE 07/16/19 21:00 07/16/19 21:01 Ondansetron HCl (Zofran) 4 mg 1X ONCE 07/16/19 20:00 07/16/19 20:01 DC 07/16/19 19:59 4 MG Orphenadrine Citrate (Norflex) 60 mg 1X ONCE 07/16/19 20:00 07/16/19 20:01 DC 07/16/19 19:59 60 MG Sodium Chloride 1,000 ml @ 1,000 mls/hr Q1H 07/16/19 19:46 07/16/19 20:45 DC 07/16/19 19:59 1,000 MLS/HR Allergies: Allergies: Allergies Coded Allergies Type Severity Reaction Last Updated Verified apixaban Allergy Intermediate Swelling 05/17/18 Yes hydromorphone Allergy Intermediate Unknown 07/16/19 Yes phenytoin sodium Allergy Intermediate Unknown 07/16/19 Yes phenytoin sodium extended Allergy Intermediate Unknown 07/16/19 Yes I S O L A T I O N *CONTACT* Allergy Unknown Unknown 07/16/19 Yes doxycycline Adverse Reaction Intermediate Unknown 07/16/19 Yes pregabalin Adverse Reaction Intermediate NIGHTMARES 05/17/18 Yes Physical Exam: PE: Constitutional: Well developed, well nourished, no acute distress, non-toxic appearance. [] HENT: Normocephalic, atraumatic, bilateral external ears normal, oropharynx moist, no oral exudates, nose normal. [] Eyes: PERRLA, EOMI, conjunctiva normal, no discharge. [] Neck: Normal range of motion, no tenderness, supple. [] Cardiovascular: Regular rate and rhythm[] Lungs & Thorax: Bilateral breath sounds clear to auscultation [] Abdomen: Bowel sounds normal, soft, with mild reported suprapubic tenderness. [] Skin: Warm, dry, no erythema, no rash. [] Extremities: No tenderness, no cyanosis, no clubbing, ROM intact, no edema. [] Neurologic: Alert and oriented X 3, no focal deficits noted. [] Current Patient Data: Labs: Laboratory Tests Test 07/16/19 19:30 07/16/19 20:05 White Blood Count 11.3 x10^3/uL (4.0-11.0) H Red Blood Count 4.30 x10^6/uL (3.50-5.40) Hemoglobin 12.6 g/dL (12.0-15.5) Hematocrit 38.0 % (36.0-47.0) Mean Corpuscular Volume 88 fL (79-100) Mean Corpuscular Hemoglobin 29 pg (25-35) Mean Corpuscular Hemoglobin Concent 33 g/dL (31-37) Red Cell Distribution Width 13.7 % (11.5-14.5) Platelet Count 435 x10^3/uL (140-400) H Neutrophils (%) (Auto) 68 % (31-73) Lymphocytes (%) (Auto) 25 % (24-48) Monocytes (%) (Auto) 6 % (0-9) Eosinophils (%) (Auto) 1 % (0-3) Basophils (%) (Auto) 1 % (0-3) Neutrophils # (Auto) 7.6 x10^3/uL (1.8-7.7) Lymphocytes # (Auto) 2.9 x10^3/uL (1.0-4.8) Monocytes # (Auto) 0.6 x10^3/uL (0.0-1.1) Eosinophils # (Auto) 0.1 x10^3/uL (0.0-0.7) Basophils # (Auto) 0.1 x10^3/uL (0.0-0.2) Sodium Level 131 mmol/L (136-145) L Potassium Level 3.8 mmol/L (3.5-5.1) Chloride Level 94 mmol/L (98-107) L Carbon Dioxide Level 25 mmol/L (21-32) Anion Gap 12 (6-14) Blood Urea Nitrogen 7 mg/dL (7-20) Creatinine 1.1 mg/dL (0.6-1.0) H Estimated GFR (Cockcroft-Gault) 50.5 BUN/Creatinine Ratio 6 (6-20) Glucose Level 111 mg/dL (70-99) H Calcium Level 8.7 mg/dL (8.5-10.1) Total Bilirubin 0.2 mg/dL (0.2-1.0) Aspartate Amino Transferase (AST) 13 U/L (15-37) L Alanine Aminotransferase (ALT) 13 U/L (14-59) L Alkaline Phosphatase 136 U/L (46-116) H Total Protein 7.0 g/dL (6.4-8.2) Albumin 3.4 g/dL (3.4-5.0) Albumin/Globulin Ratio 0.9 (1.0-1.7) L Lipase 132 U/L (73-393) Urine Collection Type U cath Urine Color Yellow Urine Clarity Clear Urine pH 6.0 (<5.0-8.0) Urine Specific [place] 1.010 (1.000-1.030) Urine Protein Negative mg/dL (NEG-TRACE) Urine Glucose (UA) Negative mg/dL (NEG) Urine Ketones (Stick) Negative mg/dL (NEG) Urine Blood Negative (NEG) Urine Nitrite Negative (NEG) Urine Bilirubin Negative (NEG) Urine Urobilinogen Dipstick 0.2 mg/dL (0.2 mg/dL) Urine Leukocyte Esterase Negative (NEG) Urine RBC Occ /HPF (0-2) Urine WBC 0 /HPF (0-4) Urine Squamous Epithelial Cells Few /LPF Urine Bacteria 0 /HPF (0-FEW) Laboratory Tests 07/16/19 19:30 Laboratory Tests 07/16/19 19:30 Vital Signs: Vital Signs Date Time Temp Pulse Resp B/P (MAP) Pulse Ox O2 Delivery O2 Flow Rate FiO2 07/16/19 19:20 98.1 108 16 121/83 (96) 95 Room Air 98.1 EKG: EKG: [] Radiology/Procedures: Radiology/Procedures: [] Course & Med Decision Making: Course & Med Decision Making Pertinent Labs and Imaging studies reviewed. (See chart for details) [] Dragon Disclaimer: Dragon Disclaimer: This electronic medical record was generated, in whole or in part, using a voice recognition dictation system. Departure Departure Impression: Primary Impression: UTI (urinary tract infection) Qualified Codes: N39.0 - Urinary tract infection, site not specified Additional Impression: Lumbar back pain Disposition: 01 HOME, SELF-CARE Condition: STABLE Referrals: NICOLAS HICKS MD (PCP) Patient Instructions: Back Pain, Adult, Urinary Tract Infection Scripts Hydrocodone/Apap 5-325 (NORCO 5-325 TABLET) 1 Each Tablet 1 EACH PO PRN Q6HRS PRN for PAIN, #12 as needed for pain Prov: ROQUE ROSALES Jr. DO 07/16/19 Nitrofurantoin Monohyd/M-Cryst (MACROBID 100 MG CAPSULE) 100 Mg Capsule 1 CAP PO BID for 7 Days, #14 CAP 0 Refills Prov: ROQUE ROSALES Jr. DO 07/16/19 ROQUE ROSALES Jr., DO July 16, 2019 20:55
[2019-07-16] MEDS: fentaNYL PF VIAL 100 MCG/2 ML VIAL IVP ONE (20:57)
[2019-07-16] MEDS ORDERED: NITR100C62 PO (21:17)
[2019-07-16] MEDS ORDERED: HYDR-3164 PO (21:17)
[2019-07-16 21:24] VITALS: BP 116/74
== END 2019-07-16 21:40 | disposition home or self-care (01) ==
LOC: ER 19:13
DX: N39.0 Urinary tract infection, site not specified (principal); M54.5 Low back pain; J44.9 Chronic obstructive pulmonary disease, unspecified; I25.2 Old myocardial infarction; Z86.73 Personal history of transient ischemic attack (TIA), and cerebral infarction without residual deficits; Z86.79 Personal history of other diseases of the circulatory system; F17.200 Nicotine dependence, unspecified, uncomplicated; Z93.2 Ileostomy status; Z95.5 Presence of coronary angioplasty implant and graft; Z88.1 Allergy status to other antibiotic agents; Z91.041 Radiographic dye allergy status; Z88.8 Allergy status to other drugs, medicaments and biological substances
CPT/HCPCS: 36415; 80053; 81001; 83690; 85025; 96374; 96375; 99285; J2360; J2405; J3010; J7030

== ENCOUNTER → 2019-09-20 | Outpatient (CLI) | payer MEDICARE, OTHER ==
[~2019-09-20] MED LIST changes: +CALC-167 PO; +FERR325T14 PO; +HYDR-3164 PO; +MIRT30TA93 PO; +MONT10TA49 PO; +MULT-121 PO; +MUPI22OI2 TP; +NAPR220C4 PO; +NITR100C62 PO; +NYST15PO2 TP
--- NOTE | 2019-09-20 13:17 | PAIN ---
DATE OF SERVICE: 09/20/2019 INITIAL CONSULTATION FOR PAIN CLINIC CHIEF COMPLAINT: Low back and bilateral lower extremity pain. HISTORY OF PRESENT ILLNESS: This is a 63-year-old female who presents with history of pain in the low back, bilateral lower extremities, for about 6 months. The patient had surgery on her back in about 2006 with a lumbar fusion at L4-L5 at an outside facility, but has had done fairly well. She reports since that time until the last 6 months, no specific injury or action that she is aware of. The pain is beginning to return and becoming much worse in the low back, bilateral lower extremities, slightly worse on the right than the left, but present bilaterally. The patient reports low back pain, worse with standing, walking, changing positions, again no specific injury or action that she is aware of. Describes the pain as a constant, sharp, stabbing, throbbing with tingling and numbness in both the lower extremities, especially in the anterior lateral thighs as well as in the posterior gluteus and posterior thighs and the patient reports it can travel all the way down to the feet on the inside edge of the lower legs, but generally just in the thighs for the most part. The patient reports it is cramping and aching in the back, worse with walking, standing, changing positions, better with sitting or lying down, but awakens her 4-5 times at night from sleep. The patient reports it does not affect her bowel or bladder control. She has had some surgery with regard to this as well, does affect her ability to walk significantly. She is using a walker, which she has for many years, but she is depending on it more so now she believes since the pain is increased. The patient describes her disability rating from 0-10, 10 being the worst, is a 10 at all aspects; family home responsibilities, recreation, social activity, sexual behavior, occupation, self-care and life support activities. The patient did have an MRI scan dated 09/03/2019 showing postoperative changes from laminectomy, interbody fusion L4-L5, L3-L4 showing lateral recess stenosis bilaterally and moderate foraminal stenosis bilaterally. L5-S1 shows disk maintained with no stenosis with postoperative changes at L4-L5 and degenerative disk disease, worse at L3-L4 with lateral recess stenosis and foraminal stenosis. PAST MEDICAL HISTORY: Significant for COPD, coronary artery disease, cigarette smoking, gastroesophageal reflux, peripheral neuropathy, anxiety, depression, neurogenic bladder. PREVIOUS SURGERIES: Bowel resection and colon resection with ostomies, also history of arthritis. Surgeries includes a prostatectomy, right total hip, left total hip replacement as well, hysterectomy, cholecystectomy, multiple sinus surgeries, lumbar surgery in 2012 and exploratory laparotomy 2012, bilateral total knee replacements, bilateral cataract extractions, total colectomy, proctectomy, and ileostomy in 2013. CURRENT MEDICATIONS: Include levothyroxine, hydrocodone, atorvastatin, Xanax, alprazolam, potassium, gabapentin, Lasix, calcium, Ventolin inhaler, tizanidine, vitamins, Aleve, Detrol, Singulair, olanzapine, mirtazapine, venlafaxine, BuSpar, acyclovir, topical iron and Advair Diskus. ALLERGIES: THE PATIENT IS ALLERGIC TO DOXYCYCLINE. FAMILY HISTORY: Significant for ALS and diabetes. SOCIAL HISTORY: The patient does not drink alcohol, does smoke cigarettes, less than a pack a day 5-6 cigarettes a day on average but has for 20 years, continues to smoke. The patient denies any illegal, illicit or recreational drugs. She is single, lives locally in [facility]. Reports she is retired. She is currently on disability, but not related to any current pandemic situation. REVIEW OF SYSTEMS: The patient's review of systems is positive for those items mentioned in history of present illness. All systems reviewed and otherwise negative. It is complete, full and well documented on the patient's chart. PHYSICAL EXAMINATION: VITAL SIGNS: The patient's blood pressure is 140/78, pulse is 98, respirations 16, temperature 97.8 degrees Fahrenheit, height is 5 feet 8 inches, weight is 210 pounds. GENERAL: The patient is awake, alert, oriented, appropriate, very pleasant demeanor. HEENT: Shows normocephalic, atraumatic. The patient is wearing eyeglasses. Extraocular movements are intact and symmetrical. Oral cavity: Mucous membranes moist and pink. Dentition is intact. NECK: Shows anterior throat supple without palpable lymphadenopathy noted. Swallow reflex symmetrical. Neck shows full rotational motion of cervical spine, both laterally as well as extension and flexion without significant difficulty. CHEST: Shows normal on inspection. Breath sounds are clear to auscultation bilaterally. HEART: Shows S1, S2 clear. No murmurs auscultated. ABDOMEN: Soft, nontender, nondistended. No palpable organomegaly is noted. No rebound or guarding demonstrated. BACK: Shows spine grossly in the midline. Normal appearing thoracic kyphosis and left lumbar curvature is slightly flattened with well-healed surgical scarring noted in the lumbar distribution. Lumbar paraspinous muscle shows moderate tenderness throughout the upper, middle and lower distribution of paraspinous muscles bilaterally but without specific radiation. No specific trigger points. The patient shows no tenderness over the spinous processes or sacroiliac regions. The patient does show good rotational motion of lumbar spine, both laterally as well as extension and flexion without significant increase in pain with some mild tenderness with extension and forward flexion at 45 degrees in the low back itself but without radiation. EXTREMITIES: The patient's lower extremities show deep tendon reflexes at 1+/4 in the patellar and tendo calcaneus tendons. Well-healed surgical scar is noted over both the anterior knees. Lower extremities are warm and dry to touch, though equal in color and appearance bilaterally. Motor exam is approximately 3-4 on a scale of 5 with bilateral dorsiflexion, extension, quadriceps and hamstring flexion is 4/5 right and 5/5 on the left. Peripheral pulses are 1+. There is approximately 1+ edema in the bilateral ankles extending to about half the distance to the knee on the anterior tibia bilaterally. The patient is able to stand, has difficulty raising from a seated position. She uses the arms of the chair and the side of the bed to get out and is using a walker to ambulate, has a shuffling gait, does not appear to favor the right or left lower extremity significantly, but did have a shuffling gait with dependence on the walker with ambulating. SKIN: Shows warm and dry, good turgor. No edema. No sores, rashes or bruises throughout. IMPRESSION: This is a 63-year-old female with; 1. Long history of low back, bilateral lower extremity pain, following a radicular pattern at L3-L4 dermatomal distribution bilaterally. 2. MRI scan of lumbar spine as noted. 3. Arthritis. 4. Chronic obstructive pulmonary disease. 5. Previous lumbar surgery. PLAN: Options were discussed with the patient including conservative medical managements, physical therapies and interventional techniques and she would like to pursue interventional techniques. We discussed a lumbar epidural steroid injection using description as well as anatomical models to describe the procedure. The patient has been doing therapy on her own as well. We will continue doing this. In the meantime, she is doing stretching and strengthening exercises that she reports she has been to therapy in the past, but nothing recently formally but has been doing exercises on her own and trying to walk daily, even with her walker, which she is still trying to do without great success but more with some stretching and heat, massage applications. The patient has been taking hydrocodone as well as ofnp-ahn-cqcetby ibuprofen, also tizanidine without significant improvement with the medications and would like to pursue lumbar epidural steroid injection. We described the procedure again using anatomical models and descriptions. We will plan on preauthorization with her insurance provider for lumbar epidural steroid injection in translaminar approach at the L3-L4 level as she has clinical L3-L4 bilateral radiculopathy. Also, we will try Medrol Dosepak. In the meantime, the patient was given oxycodone 7.5 mg with instructions, side effects to be aware of each of the medications and will follow up after authorization for a translaminar L3-L4 level lumbar epidural steroid injection at that time. HONORIO GARNER MD DR: AGUSTINA/joshua JOB#: [id number] / [id number] NICOLAS Duarte MD
== END | disposition home or self-care (01) ==
LOC: PNCL 11:09
PROVIDERS: ATTEND Anesthesiology
DX: M79.605 Pain in left leg (principal); M79.604 Pain in right leg; I25.10 Atherosclerotic heart disease of native coronary artery without angina pectoris; J44.9 Chronic obstructive pulmonary disease, unspecified; K21.9 Gastro-esophageal reflux disease without esophagitis; N31.9 Neuromuscular dysfunction of bladder, unspecified; F32.9 Major depressive disorder, single episode, unspecified; Z88.1 Allergy status to other antibiotic agents; G62.9 Polyneuropathy, unspecified
CPT/HCPCS: G0463

== ENCOUNTER → 2019-09-22 | Outpatient (CLI) | payer MEDICARE, OTHER ==
--- NOTE | 2019-09-27 10:11 | RAD ---
BILATERAL SCREENING MAMMOGRAM History: Routine screening. Comparison: 02/26/2000 18,000 05/28/2016, 09/30/2013. Technique: Routine bilateral digital mammogram views were obtained. Findings: Breast Tissue Density B : There are scattered areas of fibroglandular density. There are no dominant masses, suspicious microcalcifications, or architectural distortion. IMPRESSION: No mammographic evidence of malignancy. Recommend routine screening. BI-RADS category 1: Negative. The images were reviewed with computer aided detection. Patient information is entered into the reminder system with a target due date for the next screening mammogram. Mammography is the most sensitive method for finding small breast cancers, but it does not detect them all and is not a substitute for careful clinical examination. A negative mammogram does not negate a clinically suspicious finding and should not result in delay in biopsying a clinically suspicious abnormality. "Our facility is accredited by the [employer] Mammography Program." Electronically signed by: Devante Seals MD (09/27/2019 10:08 AM) [id number]
== END | disposition home or self-care (01) ==
LOC: MAMMO 11:09
PROVIDERS: ATTEND Family Medicine
DX: Z12.31 Encounter for screening mammogram for malignant neoplasm of breast (principal)
CPT/HCPCS: 77067

== ENCOUNTER → 2019-10-06 | Outpatient (CLI) | payer MEDICARE, OTHER ==
[~2019-10-06] MED LIST changes: +IOHEXOL 180 MG/ML 10 ML VIAL. ONE; +methylPREDNISolone ACETATE 40 MG/ML VIAL. ONE; +methylPREDNISolone ACETATE 80 MG/ML VIAL. ONE
--- NOTE | 2019-10-06 09:55 | PAIN ---
DATE OF SERVICE: 10/06/2019 PROGRESS NOTE FOR PAIN CLINIC DIAGNOSES: Lumbar radiculopathy with lumbar degenerative disk disease, lumbar spinal stenosis and lumbar post-laminectomy syndrome. HISTORY OF PRESENT ILLNESS: The patient is a 63-year-old female who returns for followup status post initial evaluation and preauthorization for lumbar epidural steroid injection. The patient has obtained that now and would like to proceed. The patient reports still significant pain in the back, lower extremities, anterior thighs, medial thighs, medial lower legs and across the back as well. The patient reports that 10 on a scale of 10 at all times, worst, average and least and is a 10 today, pressure, tingling, cramping and stabbing in the back, shooting and aching with tight sensation in the legs as well, becoming more constant, radiating, severe with walking, standing, changing positions, waking her from sleep about every 4 hours. The patient reports no new motor or sensory deficits or other complaints. PHYSICAL EXAMINATION: VITAL SIGNS: The patient's blood pressure 131/83, pulse 107, respirations 18, temperature 98.3 degrees Fahrenheit, height is 5 feet 8 inches, weight is 210 pounds. GENERAL: The patient is awake, alert, oriented, appropriate, very pleasant demeanor. HEENT: Head shows normocephalic, atraumatic. The patient wears eyeglasses. Extraocular muscles are intact and symmetrical. Oral cavity: Mucous membranes moist and pink. Dentition is intact. NECK: Shows anterior throat supple without palpable lymphadenopathy noted. Swallow reflex symmetrical. CHEST: Shows normal on inspection. Breath sounds are clear bilaterally. HEART: Shows S1, S2 clear. No murmurs auscultated. ABDOMEN: Soft, nontender with ileostomy bag in place in the right to lower quadrant. BACK: Shows spine grossly in the midline. Normal appearing thoracic kyphosis and flattening of lumbar lordotic curvature with well-healed surgical scar in the midline. Lumbar paraspinous muscle shows symmetrical on inspection, on palpation shows some moderate tenderness diffusely bilaterally, but only diffusely without significant radiation. The patient has good rotational motion of lumbar spine, both laterally as well as extension and flexion. EXTREMITIES: Lower extremities show deep tendon reflexes 1+ in the patellar and tendo calcaneus tendons. Motor exam is strong with approximately 4 on a scale of 5 on the right, quadriceps and hamstring and 3-4 at the right ankle and left ankle bilaterally. The patient's left side shows 5/5 with left quadriceps and hamstring flexion. Peripheral pulses are 1+ posterior tibia. No peripheral edema bilaterally. Options were discussed with the patient. The patient's old chart was reviewed as her current medication regimen updated. Current review of systems updated today as well. We will proceed with a first in this series of lumbar epidural steroid injection today with fluoroscopic guidance. Risks were again discussed including, but not limited to bleeding, infection, possibility of epidural hematoma, subsequent neurological compromise, dural puncture, headaches, spinal cord and/or nerve damage, side effects of steroid medication and poor results regarding pain control. The patient understands and wished to proceed. The patient will return to clinic in approximately 2 weeks for followup. She was counseled on return appointment, activity level and side effects to be aware of. DIAGNOSES: Lumbar radiculopathy with lumbar degenerative disk disease, lumbar spinal stenosis and lumbar post-laminectomy syndrome. PROCEDURE: Lumbar epidural steroid injection, translaminar approach at L3-L4 level using C-arm fluoroscopic guidance under sterile prep and drape using local anesthetic. MEDICATION INJECTED: A total of 120 mg Depo-Medrol plus 10 mL of preservative-free normal saline and 2 mL of contrast. CONDITION AT DISCHARGE: Stable. The patient tolerated the procedure well, had no complications. HONORIO GARNER MD DR: AGUSTINA/joshua JOB#: [id number] / [id number]
== END ==
LOC: PNCL 08:54
PROVIDERS: ATTEND Anesthesiology
DX: M51.16 Intervertebral disc disorders with radiculopathy, lumbar region (principal); M48.061 Spinal stenosis, lumbar region without neurogenic claudication; M96.1 Postlaminectomy syndrome, not elsewhere classified
CPT/HCPCS: 62323; J1030; J1040; Q9965

== ENCOUNTER → 2019-10-20 | Outpatient (CLI) | payer MEDICARE, OTHER ==
[~2019-10-20] MED LIST changes: -IOHEXOL 180 MG/ML 10 ML VIAL. ONE; -methylPREDNISolone ACETATE 40 MG/ML VIAL. ONE; -methylPREDNISolone ACETATE 80 MG/ML VIAL. ONE
--- NOTE | 2019-10-20 11:03 | PDOC ---
Progress Note - Pain Clinic Date of Service: DOS: DATE: 10/20/19 TIME: 11:10 Diagnosis: Dx: Lumbar to radiculopathy with lumbar degenerative disc disease lumbar postlaminectomy syndrome and lumbar spinal stenosis History or Present Illness: HPI: Mrs. Jackson is a 64-year-old female turns follow-up status post lumbar epidural to injection x1. Patient reports about 55 0% improvement after the first 3 weeks or so after the injection but the pain is returning on the low back and bilateral lower extremities patient reports it is a 9 on a scale of 10 is worse over the past week 8 on average 6 installations 8 in a patient which is worse with walking standing changing positions initially seems much better with distance walking doing household activities try with greater ease and comfort the pain returned now significantly in the low back and into the bilateral lower extremities mostly in the posterior lateral thighs anterior thighs medial thighs and groins bilaterally right essentially equal to left. Patient ports pain is cramping stabbing aching sharp dull shooting radiating coming more constant severe with activity and walking. Patient points towards her from sleep at night over the past week or so every 5-6 hours. Patient reports no new motor or sensory deficits no new bowel or bladder concerns or complaints. Physical Exam: VS: Blood pressure is 133/87 pulse 101 respirations 18 temperature 98.5 F height 5 foot 8-1/2 inches weight is 2 1 1 pounds PE: PHYSICAL EXAMINATION: GENERAL: The patient is awake, alert, oriented, appropriate, very pleasant demeanor HEENT: Shows normocephalic, atraumatic. Extraocular movements are intact and symmetrical. Oral cavity: Mucous membranes moist and pink. Dentition is intact. NECK: Shows anterior throat supple without palpable lymphadenopathy noted. Swallow reflex symmetrical. CHEST: Shows normal on inspection. Breath sounds are clear bilaterally. HEART: Shows S1, S2 clear. No murmurs auscultated. ABDOMEN: Soft, nontender, nondistended. No palpable organomegaly is noted. No rebound or guarding demonstrated. BACK: Shows spine grossly in the midline. Normal-appearing cervical lordotic curvature. There is slightly increased thoracic kyphosis, some minor flattening of the lumbar lordotic curvature. Lumbar paraspinous muscles show symmetrical on inspection, on palpation shows some moderate tenderness diffusely throughout the middle and lower distribution of the paraspinous muscles bilaterally with well-healed surgical scar noted , but without specific trigger points, without radiation of pain. The patient has good rotational motion of the lumbar spine, both laterally as well as extension and flexion without significant difficulty. No tenderness over the spinous processes, sacrum or sacroiliac regions. EXTREMITIES: Lower extremities show deep tendon reflexes 1+ in the patellar and tendo calcaneus tendons. Motor exam is 3 on a scale of 5 with right dorsiflexion, extension, quadriceps and hamstring flexion and 4/5 on the left. Peripheral pulses are 1+ posterior tibial. No peripheral edema is noted bilaterally. Lower extremities are warm and dry to touch, equal in color and appearance. Straight leg raise noted to be positive on the right about 40 degrees, left side is negative. Gaenslen's and Dany's maneuvers are negative as well. The patient is able to stand but uses the arms of the chair to get up from a seated position has a walker with her is that she is using and depends on significantly with the moderately shuffling gait. SKIN: Shows warm and dry, good turgor. No edema. No sores, rashes or bruising throughout. Optins were discussed with the patient. The patient's old chart was reviewed and current medication regimen updated. [] Procedure: Procedure: None Medication Injected: Med Injected: None Condition at Discharge: Condition at Discharge: Options were discussed with the patient patient's old chart was reviewed as her current medication regimen updated current review of systems updated today as well and we will preauthorize patient for a second lumbar epidural steroid injection patient is done very well with the first injection still has radicular pain in L3-4 dermatomal distribution bilaterally slightly worse on the right than the left. Patient will continue with doing stretching strength exercises at home as well as maintaining anti-inflammatory medications and hydrocodone for pain as prescribed. Patient will return to clinic once preauthorization is obtained and will plan on translaminar approach at the L3-4 level for lumbar epidural straight injection #2 at that time. HONORIO GARNER MD Oct 20, 2019 11:03
== END | disposition home or self-care (01) ==
LOC: PNCL 10:11
PROVIDERS: ATTEND Anesthesiology
DX: M51.16 Intervertebral disc disorders with radiculopathy, lumbar region (principal); M96.1 Postlaminectomy syndrome, not elsewhere classified; M48.061 Spinal stenosis, lumbar region without neurogenic claudication; F41.9 Anxiety disorder, unspecified; F32.9 Major depressive disorder, single episode, unspecified; J44.9 Chronic obstructive pulmonary disease, unspecified; Z88.8 Allergy status to other drugs, medicaments and biological substances; Z79.899 Other long term (current) drug therapy
CPT/HCPCS: G0463

== ENCOUNTER → 2019-11-01 | Outpatient (CLI) | payer MEDICARE, OTHER ==
[~2019-11-01] MED LIST changes: +IOHEXOL 180 MG/ML 10 ML VIAL. ONE; +methylPREDNISolone ACETATE 40 MG/ML VIAL. ONE; +methylPREDNISolone ACETATE 80 MG/ML VIAL. ONE
--- NOTE | 2019-11-01 11:17 | PDOC ---
Progress Note - Pain Clinic Date of Service: DOS: DATE: 11/01/19 TIME: 11:13 Diagnosis: Dx: Lumbar radiculopathy with lumbar degenerative disease lumbar postlaminectomy syndrome and lumbar spinal stenosis History or Present Illness: HPI: 64-year-old female returns follow-up status post lumbar epidural steroid ejection x1. Patient is waiting preauthorization is obtained that now would like to proceed with a second injection today patient reports still pain low back bilateral lower extremities posterior gluteus lateral thighs posterior thighs medial thighs anterior thighs and groins to the level of the knees. Patient ports a 9 on a scale of 10 is worse over the past week 7-8 on average 6 at its least as a 7 today patient works as aching sharp shooting burning cramping and stabbing with radiating pain it can be constant and severe unbearable in the low back and the legs. Patient continues to use a walker with ambulation has it with her today. Patient was awakened from sleep about every 2 hours or so over the past week or so. Patient reports no new motor or sensory deficits no new bowel or bladder incontinence. Physical Exam: VS: Pressures 136/88 pulse 96 respirations 18 temperature 98.3 F weight is 211 pounds PE: PHYSICAL EXAMINATION: GENERAL: The patient is awake, alert, oriented, appropriate, very pleasant demeanor HEENT: Shows normocephalic, atraumatic. Extraocular movements are intact and symmetrical. Oral cavity: Mucous membranes moist and pink. Dentition is i ntact. NECK: Shows anterior throat supple without palpable lymphadenopathy noted. Swallow reflex symmetrical. CHEST: Shows normal on inspection. Breath sounds are clear bilaterally. HEART: Shows S1, S2 clear. No murmurs auscultated, no rales rhonchi or wheezes. ABDOMEN: Soft, nontender, nondistended. No palpable organomegaly is noted. No rebound or guarding demonstrated. BACK: Shows spine grossly in the midline. Normal-appearing cervical lordotic curvature. There is slightly increased thoracic kyphosis, some minor flattening of the lumbar lordotic curvature. Lumbar paraspinous muscles show symmetrical on inspection, on palpation shows some moderate tenderness diffusely throughout the upper, middle and lower distribution of the paraspinous muscles bilaterally without specific trigger points, without radiation of pain. The patient has good rotational motion of the lumbar spine, both laterally as well as extension and flexion without significant difficulty. No tenderness over the spinous processes, sacrum or sacroiliac regions. EXTREMITIES: Lower extremities show deep tendon reflexes 1+ in the patellar and tendo calcaneus tendons. Motor exam is 3 on a scale of 5 with right dorsiflexion, extension, quadriceps and hamstring flexion and 4/5 on the left. Peripheral pulses are 1+ posterior tibial. No peripheral edema is noted bilaterally. Lower extremities are warm and dry to touch, equal in color and appearance. The patient is able to stand and is using a walker to ambulate and has a shuffling gait. SKIN: Shows warm and dry, good turgor. No edema. No sores, rashes or bruising throughout. Procedure: Procedure: Options discussed with the patient. Patient will chart was used to current medication regimen updated current review of systems updated today as well. We will proceed with a second in the series lumbar epidural steroid today with fluoroscopic guidance risks again discussed including but not limited to bleeding infection possibility of epidural hematoma and subsequent neurological compromise dural puncture headache spinal cord and/or nerve damage side effects of steroid medication and portals guarding pain control. Patient understands wished to proceed patient return to clinic in approximately 2 weeks for follow- up was counseled to return appointment activity level and side effects to be aware of. Medication Injected: Med Injected: Procedure is lumbar epidural steroid injection under local anesthetic using sterile prep and drape at the L3-4 level using C-arm fluoroscopic guidance in both AP and lateral views medications injected is 120 mg Depo-Medrol + 10 mL p reservative-free normal saline and 2 mL Isovue for contrast- condition at discharge is stable patient tolerated procedure well had no complications. Condition at Discharge: Condition at Discharge: Condition at discharge is stable patient tolerated procedure well had no complications. HONORIO GARNER MD Nov 01, 2019 11:17
== END | disposition home or self-care (01) ==
LOC: PNCL 09:59
PROVIDERS: ATTEND Anesthesiology
DX: M51.16 Intervertebral disc disorders with radiculopathy, lumbar region (principal); M48.061 Spinal stenosis, lumbar region without neurogenic claudication; M96.1 Postlaminectomy syndrome, not elsewhere classified; K21.9 Gastro-esophageal reflux disease without esophagitis; J44.9 Chronic obstructive pulmonary disease, unspecified; F41.9 Anxiety disorder, unspecified; Z88.8 Allergy status to other drugs, medicaments and biological substances; Z79.82 Long term (current) use of aspirin; Z79.899 Other long term (current) drug therapy; Z83.6 Family history of other diseases of the respiratory system
CPT/HCPCS: 62323; J1030; J1040; Q9965

== ENCOUNTER → 2019-11-17 | Outpatient (CLI) | payer OTHER ==
[~2019-11-17] MED LIST changes: -IOHEXOL 180 MG/ML 10 ML VIAL. ONE; -methylPREDNISolone ACETATE 40 MG/ML VIAL. ONE; -methylPREDNISolone ACETATE 80 MG/ML VIAL. ONE
--- NOTE | 2019-11-17 11:10 | PDOC ---
Progress Note - Pain Clinic Date of Service: DOS: DATE: 11/17/19 TIME: 11:06 Diagnosis: Dx: Lumbar radiculopathy with lumbar degenerative disc disease lumbar postlaminectomy syndrome and lumbar spinal stenosis History or Present Illness: HPI: 64-year-old female returns follow-up status post lumbar epidural steroid injections x2. Patient ports about 50% improvement after the last injection in the back and lower extremities lasting for about 2-1/2 weeks patient reports the pain is returning now over the past few days in the low back bilateral lower extremities posterior gluteus lateral thighs anterior thighs medial thighs into the groin is some extent greater on the right than the left but present bilaterally patient reports worse with walking standing changing positions this is usually much better with walking distances doing household activities try with greater ease sleeping better at night now the pain is awaken her from sleep began over the past few days where she is having to use pillows to position her legs and hips and is losing a lot of sleep because of the pain and once again. Patient reports the pain is a 9 on a scale of 10 is worse of the past week 8-9 on average 7 at its least is an 8 today. Patient reports is aching sharp tight shooting cramping in the back shooting and radiating to the lower extremities and stabbing pain pips coming more constant and severe over the last few days. Patient reports no new motor or sensory deficits no new bowel or bladder incontinence. Physical Exam: VS: Blood pressure is 143/85 pulse 85 respirations 18 temperature 98.3 F weight is 215 pounds PE: PHYSICAL EXAMINATION: GENERAL: The patient is awake, alert, oriented, appropriate, very pleasant demeanor HEENT: Shows normocephalic, atraumatic. Extraocular movements are intact and symmetrical. Oral cavity: Mucous membranes moist and pink. NECK: Shows anterior throat supple without palpable lymphadenopathy noted. Swallow reflex symmetrical. CHEST: Shows normal on inspection. Breath sounds are clear bilaterally, no rales rhonchi or wheezes auscultated. HEART: Shows S1, S2 clear. No murmurs auscultated. ABDOMEN: Soft, nontender, nondistended, obese. No palpable organomegaly is noted. No rebound or guarding demonstrated. BACK: Shows spine grossly in the midline. Normal-appearing cervical lordotic curvature. There is slightly increased thoracic kyphosis, some minor flattening of the lumbar lordotic curvature. Lumbar paraspinous muscles show symmetrical on inspection, on palpation shows some moderate tenderness diffusely throughout the upper, middle and lower distribution of the paraspinous muscles bilaterally, but without specific trigger points, without radiation of pain. The patient has good rotational motion of the lumbar spine, both laterally as well as extension and flexion without significant difficulty. No tenderness over the spinous processes, sacrum or sacroiliac regions. EXTREMITIES: Lower extremities show deep tendon reflexes 1+ in the patellar and tendo calcaneus tendons. Motor exam is 3 on a scale of 5 with right dorsiflexion, extension, quadriceps and hamstring flexion and 4/5 on the left. Peripheral pulses are 1 posterior tibial. No peripheral edema is noted bilaterally. Lower extremities are warm and dry to touch, equal in color and appearance. Patient is able to stand but needs help raising up from a seated position with the arms of the chair. Walking with a slight favoring gait favoring the right lower extremity but not using any assistive devices to amb ulate. Procedure: Procedure: Options were discussed with the patient. Patients old chart was reviewed as well as her medication regimen updated current review of systems updated today as well. We will proceed with preauthorization for third lumbar epidural steroid injection. Patient still has clinical radiculopathy and L3-4 dermatomal distribution the bilateral lower extremities right greater than left. Patient continue with stretching and strengthening exercises anti-inflammatories as well as antidepressants and will have her return for a translaminar L3-4 lumbar epidural steroid injection after approval. Medication Injected: Med Injected: None Condition at Discharge: Condition at Discharge: Condition at discharge is stable HONORIO GARNER MD Nov 17, 2019 11:10
== END | disposition home or self-care (01) ==
LOC: PNCL 10:29
PROVIDERS: ATTEND Anesthesiology
DX: M51.16 Intervertebral disc disorders with radiculopathy, lumbar region (principal); M48.061 Spinal stenosis, lumbar region without neurogenic claudication; M96.1 Postlaminectomy syndrome, not elsewhere classified; I10 Essential (primary) hypertension; F41.9 Anxiety disorder, unspecified; F32.9 Major depressive disorder, single episode, unspecified; I25.10 Atherosclerotic heart disease of native coronary artery without angina pectoris; Z88.8 Allergy status to other drugs, medicaments and biological substances; Z98.890 Other specified postprocedural states; Z79.899 Other long term (current) drug therapy; Z79.82 Long term (current) use of aspirin; Z87.891 Personal history of nicotine dependence
CPT/HCPCS: G0463

== ENCOUNTER → 2019-12-07 | Outpatient (CLI) | payer OTHER ==
[~2019-12-07] MED LIST changes: +IOHEXOL 180 MG/ML 10 ML VIAL. ONE; +methylPREDNISolone ACETATE 40 MG/ML VIAL. ONE; +methylPREDNISolone ACETATE 80 MG/ML VIAL. ONE
--- NOTE | 2019-12-07 11:39 | PDOC ---
Progress Note - Pain Clinic Date of Service: DOS: DATE: 12/07/19 TIME: 11:33 Diagnosis: Dx: Lumbar to colopathy with lumbar degenerative disc disease lumbar spinal stenosis and post lumbar laminectomy syndrome History or Present Illness: HPI: 64-year-old female returns follow-up status post lumbar epidurals injection x2. Patient reports only about 34% improvement after the last injection still si gnificant pain in the low back into the bilateral lower extremities posterior gluteus posterior lateral thigh lateral anterior thigh anteromedial thighs and groins with walking standing changing positions. Has been disturbing her from sleep wakes her up about every 5 hours. Patient reports pain is radiating constant tingling and burning in the legs cramping in the back sharp and aching in the back tightness shooting as well in the legs patient rates her pain as a 9 on scale 10 is worse over the past week 7 on average 7 at its least is a 7 today. Patient reports no new motor or sensory deficits no new bowel or bladder incontinence or other complaints. Physical Exam: VS: Pressure is 140/91 pulse 111 respirations 18 temperature 99.0 F height is 5 feet 8 inches weight is 217 pounds PE: PHYSICAL EXAMINATION: GENERAL: The patient is awake, alert, oriented, appropriate, very pleasant demeanor HEENT: Shows normocephalic, atraumatic. Extraocular movements are intact and symmetrical. Oral cavity: Mucous membranes moist and pink NECK: Shows anterior throat supple without palpable lymphadenopathy noted. Swallow reflex symmetrical. CHEST: Shows normal on inspection. Breath sounds are clear bilaterally, no ral es rhonchi wheezes auscultated. HEART: Shows S1, S2 clear. No murmurs auscultated. ABDOMEN: Soft, nontender, nondistended, obese. No palpable organomegaly is noted. No rebound or guarding demonstrated. BACK: Shows spine grossly in the midline. Normal-appearing cervical lordotic curvature. There is slightly increased thoracic kyphosis, some minor flattening of the lumbar lordotic curvature. Lumbar paraspinous muscles show symmetrical on inspection, on palpation shows some moderate tenderness diffusely throughout the upper, middle and lower distribution of the paraspinous muscles without specific trigger points, without radiation of pain. The patient has good rotational motion of the lumbar spine, both laterally as well as extension and flexion without significant difficulty. No tenderness over the spinous processes, sacrum or sacroiliac regions. EXTREMITIES: Lower extremities show deep tendon reflexes 1+ in the patellar and tendo calcaneus tendons. Motor exam is 3-4 on a scale of 5 with right dorsifle xion, extension, quadriceps and hamstring flexion and 4/5 on the left. Peripheral pulses are 1+ posterior tibial. No peripheral edema is noted bilaterally. Lower extremities are warm and dry to touch, equal in color and appearance. SKIN: Shows warm and dry, good turgor. No edema. No sores, rashes or bruising throughout. Procedure: Procedure: Options were discussed with the patient. Patient chart was reviewed as her current medication regimen updated current review of systems updated today as well. We will proceed with a third in the series lumbar epidural steroid injection today. Risks were discussed including but not limited to: Bleeding, infection, possibility of epidural hematoma and subsequent neurological compr omise, dural puncture, headaches, spinal cord and/or nerve damage, side effects of steroid medication, and poor results regarding pain control. Patient understands wished to proceed. Patient return to clinic in approximate 2 weeks for follow-up. We also gave patient spinal cord stimulator information and she is interested in pursuing this we will have her review this and if interested will make arrangements to plan for a spinal cord stimulator trial. Patient was counseled as activity level as well as side effects to be aware of. Medication Injected: Med Injected: Procedure is lumbar epidural steroid injection under local anesthetic using sterile prep and drape at the L3-4 level using C-arm fluoroscopic guidance in both AP and lateral views medications injected is 120 mg Depo-Medrol + 10 mL preservative-free normal saline and 2 mL contrast- condition at discharge is stable patient tolerated procedure well had no complications. Condition at Discharge: Condition at Discharge: Condition at discharge stable patient tolerated procedure well had no complications. HONORIO GARNER MD Dec 07, 2019 11:38
== END | disposition home or self-care (01) ==
LOC: PNCL 10:25
PROVIDERS: ATTEND Anesthesiology
DX: M48.061 Spinal stenosis, lumbar region without neurogenic claudication (principal); M51.36 Other intervertebral disc degeneration, lumbar region; F41.9 Anxiety disorder, unspecified; F32.9 Major depressive disorder, single episode, unspecified; E03.9 Hypothyroidism, unspecified; J44.9 Chronic obstructive pulmonary disease, unspecified; I10 Essential (primary) hypertension; K21.9 Gastro-esophageal reflux disease without esophagitis; F17.210 Nicotine dependence, cigarettes, uncomplicated; Z88.8 Allergy status to other drugs, medicaments and biological substances; Z79.899 Other long term (current) drug therapy; Z83.6 Family history of other diseases of the respiratory system
CPT/HCPCS: 62323; J1030; J1040; Q9965

== ENCOUNTER → 2019-12-23 | Outpatient (CLI) | payer OTHER ==
[~2019-12-23] MED LIST changes: -IOHEXOL 180 MG/ML 10 ML VIAL. ONE; -methylPREDNISolone ACETATE 40 MG/ML VIAL. ONE; -methylPREDNISolone ACETATE 80 MG/ML VIAL. ONE
--- NOTE | 2019-12-23 11:12 | PDOC ---
Progress Note - Pain Clinic Date of Service: DOS: DATE: 12/23/19 TIME: 11:08 Diagnosis: Dx: Lumbar radiculopathy with lumbar degenerative disc disease lumbar postlaminectomy syndrome and lumbar spinal stenosis History or Present Illness: HPI: 64-year-old female returns follow-up status post lumbar epidural steroid injections x3. Patient reports no significant improvement after third injection. Patient complains pain the low back bilateral lower extremities posterior gluteus posterior thigh posterior lateral thigh lateral anterior thighs into the posterior calves patient was worse with walking standing changing positions scribes a tingling burning cramping and stabbing radiating coming more constant in the low back and legs patient describes it as a 9 on scale 10 is worse over the past week 7 on average 7 at its least is a 7 today. Patient reports no new motor or sensory deficits no bowel or bladder incontinence or other complaints. Physical Exam: VS: Blood pressure is 180/113 pulse 107 respirations 18 temperature 98.3 F height is 5 feet 8 inches weight is 215 pounds PE: PHYSICAL EXAMINATION: GENERAL: The patient is awake, alert, oriented, appropriate, very pleasant demeanor HEENT: Shows normocephalic, atraumatic. Extraocular movements are intact and symmetrical. NECK: Shows anterior throat supple without palpable lymphadenopathy noted. Swa llow reflex symmetrical. CHEST: Shows normal on inspection. Breath sounds are clear bilaterally. HEART: Shows S1, S2 clear. No murmurs auscultated. ABDOMEN: Soft, nontender, nondistended, obese. No palpable organomegaly is noted. No rebound or guarding demonstrated. BACK: Shows spine grossly in the midline. Normal-appearing cervical lordotic curvature. There is slightly increased thoracic kyphosis, some minor flattening of the lumbar lordotic curvature. Lumbar paraspinous muscles show symmetrical on inspection, on palpation shows some moderate tenderness diffusely throughout the upper, middle and lower distribution of the paraspinous muscles bilaterally without specific trigger points, without radiation of pain. The patient has good rotational motion of the lumbar spine, both laterally as well as extension and flexion without significant difficulty. No tenderness over the spinous processes, sacrum or sacroiliac regions. EXTREMITIES: Lower extremities show deep tendon reflexes 1+ in the patellar and tendo calcaneus tendons. Motor exam is 4 on a scale of 5 with right dorsiflexion, extension, quadriceps and hamstring flexion and 5/5 on the left. Peripheral pulses are 1+ posterior tibial. No peripheral edema is noted bilaterally. Lower extremities are warm and dry to touch, equal in color and appearance. Procedure: Procedure: Options discussed with the patient. Patient's old chart was reviewed with her medication regimen updated current review of systems updated today as well. We will preauthorize patient for spinal cord stimulator trial as patient has had time to look over the information regarding this now would like to proceed with this. Patient with previous lumbar laminectomy syndrome continue lumbar radiculopathy resistive to physical therapies medication management and interventional techniques after 3 lumbar epidural steroid injections with still significant pain and radicular fashion as noted. Patient will see her psychiatrist next week and will ask him also to evaluate for implantable devices compatibility. Patient will follow-up once this is obtained and we will proceed with preauthorization at that point. Medication Injected: Med Injected: None Condition at Discharge: Condition at Discharge: Condition at discharge is stable HONORIO GARNER MD Dec 23, 2019 11:12
== END ==
LOC: PNCL 10:48
PROVIDERS: ATTEND Anesthesiology
DX: M51.16 Intervertebral disc disorders with radiculopathy, lumbar region (principal); M48.061 Spinal stenosis, lumbar region without neurogenic claudication; M46.1 Sacroiliitis, not elsewhere classified; F41.9 Anxiety disorder, unspecified; F32.9 Major depressive disorder, single episode, unspecified; J44.9 Chronic obstructive pulmonary disease, unspecified; F17.210 Nicotine dependence, cigarettes, uncomplicated; K21.9 Gastro-esophageal reflux disease without esophagitis; Z98.890 Other specified postprocedural states; Z79.899 Other long term (current) drug therapy
CPT/HCPCS: G0463

== ENCOUNTER → 2020-01-31 | Outpatient (CLI) | payer OTHER ==
[~2020-01-31] MED LIST changes: +LIDOCAINE 1% PF 2 ML VIAL. ONE
--- NOTE | 2020-01-31 14:21 | PDOC ---
Progress Note - Pain Clinic Date of Service: DOS: DATE: 01/31/20 TIME: 14:14 Diagnosis: Dx: Lumbar radiculopathy with lumbar degenerative disease, lumbar spinal stenosis, lumbar postlaminectomy syndrome History or Present Illness: HPI: 64-year-old female returns follow-up status post lumbar epidural steroid injections and preauthorization for spinal cord stimulator temporary leads placement. Patient is obtained this as well as a good category rating from psychological evaluation for spinal surgery and implantations and would like to proceed. Patient reports still significant pain in the low back and the bilateral lower extremities posterior gluteus posterior thighs posterior lateral thigh lateral anterior thighs anterior medial thighs posterior calves as well as into the feet bilaterally. Patient reports is becoming much more severe since her injections, the pain has returned gradually but is much more severe and essentially at baseline at this time. Patient rates her pain as a 9 on scale of 10 at its worst average and 8 its least is a 9 today. Patient scribes pain is aching sharp tight shooting stabbing cramping burning tingling radiating beco cassandra constant severe with activity waking her from sleep about once every 4 hours. Patient reports no new motor or sensory deficits no bowel or bladder incontinence Physical Exam: VS: Blood pressure is 189/100 pulse 116 respirations 18 temperature 99.4 F height is 5 feet 8 inches weight is 221 pounds PE: PHYSICAL EXAMINATION: GENERAL: The patient is awake, alert, oriented, appropriate, very pleasant demeanor HEENT: Shows normocephalic, atraumatic. Extraocular movements are intact and symmetrical. Oral cavity: Mucous membranes moist and pink. Dentition is intact. NECK: Shows anterior throat supple without palpable lymphadenopathy noted. Swallow reflex symmetrical. CHEST: Shows normal on inspection. Breath sounds are clear bilaterally, no rales rhonchi or wheezes auscultated. HEART: Shows S1, S2 clear. No murmurs auscultated. ABDOMEN: Soft, nontender, nondistended, obese, right lower quadrant with ostomy and ostomy bag.. No palpable organomegaly is noted. No rebound or guarding demonstrated. BACK: Shows spine grossly in the midline. Normal-appearing cervical lordotic cu rvature. There is slightly increased thoracic kyphosis, some minor flattening of the lumbar lordotic curvature, with well-healed midline surgical scar. Lumbar paraspinous muscles show symmetrical on inspection, on palpation shows some moderate tenderness diffusely throughout the upper, middle and lower distribution of the paraspinous muscles without specific trigger points, without radiation of pain. The patient has good rotational motion of the lumbar spine, both laterally as well as extension and flexion without significant difficulty. No tenderness over the spinous processes, sacrum or sacroiliac regions. EXTREMITIES: Lower extremities show deep tendon reflexes 1+ in the patellar and tendo calcaneus tendons. Motor exam is 4 on a scale of 5 with right dorsiflexion, extension, quadriceps and hamstring flexion and 5/5 on the left. Peripheral pulses are 1+ posterior tibial. No peripheral edema is noted bilaterally. Lower extremities are warm and dry to touch, equal in color and appearance. SKIN: Shows warm and dry, good turgor. No edema. No sores, rashes or bruising throughout. Procedure: Procedure: Options were discussed with the patient. Patient chart was reviewed as her current medication regimen updated current review of systems updated today as well. We will proceed with spinal cord stimulator temporary leads placement x2 with fluoroscopic guidance. Risks were discussed including but not limited to: Bleeding, infection, possibility of epidural hematoma and subsequent neurological compromise, dural puncture, headaches, spinal cord and/or nerve damage, and poor results regarding pain control. Patient understands wished to proceed. Patient will return to clinic in approximate 1 week for follow-up and removal of the temporary's stimulator leads at that time. We will reassess patient's pain level in 1 week as scheduled. Medication Injected: Med Injected: Under sterile prep and drape patient in prone position using C-arm fluoroscopic guidance patient's lumbar spine was identified and vertebral levels were counted did put external marker on the T8 level. This time the lumbar spine was revisualized and using 1% lidocaine, the area over the L3 4 level was anesthetized and then using a 14-gauge Zlio needle with stylette was entered to the epidural space at the L2-3 level using a paramedian approach to the right with preservative-free normal saline tmvw-hx-jzkxujwsts technique aspiration was noted to be negative and using direct fluoroscopy visualization spinal cord stimulator lead was then advanced without significant resistance in the midline and confirmed posterior with both AP and lateral views, and advanced to the superior endplate of the T8 vertebral level superimposed with the superior spinal cord stimulator electrode lead. Fluoroscopy was used in a lateral view to verify posterior placement in the epidural space at this point as well. At this time a second lead was then introduced in similar fashion at the L3-4 level and inserted and in the epidural space at the L2-3 level once again with preservative-free normal saline ptnc-bt-nrrvimckkz technique. Aspiration was again noted to be negative and using direct visualization with fluoroscopy second lumbar spinal cord stimulator lead was advanced without significant resistance in the midline with the superior electrode superimposed over the superior endplate of the T9 vertebral body. Lateral visualization was again confirmed with placement of the stimulator in the posterior epidural space. At this time the needles and stylette were removed with intermittent fluoroscopic visualization maintaining that the leads had not moved during this process and this was confirmed. This time 1% lidocaine was used to anesthetize the skin next to the insertion sites of the stimulator wires and using a 2-0 silk were then sutured in place. Mastisol and Tegaderm was then applied as well as reinforcing tape and gauze. Patient was transferred to the recovery area under his own power walking without difficulty and had no immediate complications from the procedure. Stimulation was then carried out with [facility] representatives. Patient will return to the clinic in approximately 1 week for removal of the temporary leads and reassessment of the patient's pain level. Condition at Discharge: Condition at Discharge: Condition at discharge is stable, patient tolerated procedure well and had no complications. HONORIO GARNER MD Jan 31, 2020 14:20
== END | disposition home or self-care (01) ==
LOC: PNCL 12:47
PROVIDERS: ATTEND Anesthesiology
DX: M51.16 Intervertebral disc disorders with radiculopathy, lumbar region (principal); M48.061 Spinal stenosis, lumbar region without neurogenic claudication; M96.1 Postlaminectomy syndrome, not elsewhere classified; I13.0 Hypertensive heart and chronic kidney disease with heart failure and stage 1 through stage 4 chronic kidney disease, or unspecified chronic kidney disease; I50.9 Heart failure, unspecified; J43.9 Emphysema, unspecified; E78.00 Pure hypercholesterolemia, unspecified; E11.22 Type 2 diabetes mellitus with diabetic chronic kidney disease; N18.2 Chronic kidney disease, stage 2 (mild); E03.9 Hypothyroidism, unspecified; K21.9 Gastro-esophageal reflux disease without esophagitis; M19.90 Unspecified osteoarthritis, unspecified site; F41.9 Anxiety disorder, unspecified; F32.9 Major depressive disorder, single episode, unspecified; Z90.710 Acquired absence of both cervix and uterus; Z98.890 Other specified postprocedural states; Z79.899 Other long term (current) drug therapy; Z79.82 Long term (current) use of aspirin; Z79.84 Long term (current) use of oral hypoglycemic drugs; Z87.891 Personal history of nicotine dependence; Z88.1 Allergy status to other antibiotic agents; Z88.8 Allergy status to other drugs, medicaments and biological substances
CPT/HCPCS: 63650; C1897; J3490

== ENCOUNTER → 2020-02-07 | Outpatient (CLI) | payer OTHER ==
[~2020-02-07] MED LIST changes: -LIDOCAINE 1% PF 2 ML VIAL. ONE
--- NOTE | 2020-02-07 15:07 | PDOC ---
Progress Note - Pain Clinic Date of Service: DOS: DATE: 02/07/20 TIME: 15:03 Diagnosis: Dx: Lumbar radiculopathy with lumbar degenerative disc disease lumbar spinal stenosis and lumbar postlaminectomy syndrome History or Present Illness: HPI: 84-year-old female returns follow-up status post spinal cord stimulator temporary leads placed 1 week ago. Patient reports she is about 70% improved with the stimulator and is very pleased with her progress. Patient ports he can increase her activity with greater distance walking she is walking without her walker now sleeping better doing household activities traveling greater ease and comfort and is very excited that her pain is reduced significantly. Patient reports no new motor or sensory deficits or other complaints rates her pain is a 6-7 on scale 10 is worse over the past week 4-5 on average and affords least is a 4 today patient ports is aching sharp tight shooting at times tingling burning cramping in the low back stabbing into the legs radiating can be constant severe but with the stimulator is reduced all of these by about 70%. Patient reports no new motor or sensory deficits no other complaints. Physical Exam: VS: Blood pressure is 139/90 pulse 109 respirations 16 temperature 98.3 F height is 5 foot 8 inches PE: PHYSICAL EXAMINATION: GENERAL: The patient is awake, alert, oriented, appropriate, is very pleasant demeanor HEENT: Shows normocephalic, atraumatic. Extraocular movements are intact and symmetrical. NECK: Shows anterior throat supple without palpable lymphadenopathy noted. Swallow reflex symmetrical. CHEST: Shows normal on inspection. Breath sounds are clear bilaterally. ABDOMEN: Soft, nontender, nondistended. No palpable organomegaly is noted. Ostomy bag right lower quadrant. No rebound or guarding demonstrated. BACK: Shows spine grossly in the midline. Normal-appearing cervical lordotic curvature. There is slightly increased thoracic kyphosis, some minor flattening of the lumbar lordotic curvature. Well-healed surgical scarring is again noted. Lumbar paraspinous muscles show symmetrical on inspection, on palpation shows some moderate tenderness diffusely throughout the upper, middle and lower distribution of the paraspinous muscles without specific trigger points, without radiation of pain. The patient has good rotational motion of the lumbar spine, both laterally as well as extension and flexion without significant difficulty. No tenderness over the spinous processes, sacrum or sacroiliac regions. EXTREMITIES: Lower extremities show deep tendon reflexes 1+ in the patellar and tendo calcaneus tendons. Motor exam is 4 on a scale of 5 with right dorsiflexion, extension, quadriceps and hamstring flexion and 5/5 on the left. Peripheral pulses are 1+ posterior tibial. No peripheral edema is noted bilaterally. SKIN: Shows warm and dry, good turgor. No edema. No sores, rashes or bruising throughout. Procedure: Procedure: Options were discussed with the patient. Patient chart was reviewed as her current medication regimen updated current review of systems updated today as well. We will remove spinal cord stimulator leads today and schedule patient for permanent placement. Under sterile prep and drape and using sterile technique bandages were taken down and sutures cut holding the 2 spinal cord stimulator leads in place. Leads were removed easily without any difficulty, with tips intact x2, site clean and dry no erythema no tenderness no drainage. Medication Injected: Med Injected: None Condition at Discharge: Condition at Discharge: Condition at discharge is stable. We will make arrangements for permanent placement spinal cord stimulator system. HONORIO GARNER MD Feb 07, 2020 15:07
== END | disposition home or self-care (01) ==
LOC: PNCL 14:27
PROVIDERS: ATTEND Anesthesiology
DX: M51.16 Intervertebral disc disorders with radiculopathy, lumbar region (principal); M96.1 Postlaminectomy syndrome, not elsewhere classified; M48.061 Spinal stenosis, lumbar region without neurogenic claudication; I13.0 Hypertensive heart and chronic kidney disease with heart failure and stage 1 through stage 4 chronic kidney disease, or unspecified chronic kidney disease; I50.9 Heart failure, unspecified; E78.00 Pure hypercholesterolemia, unspecified; E11.22 Type 2 diabetes mellitus with diabetic chronic kidney disease; N18.2 Chronic kidney disease, stage 2 (mild); M19.90 Unspecified osteoarthritis, unspecified site; K21.9 Gastro-esophageal reflux disease without esophagitis; F32.9 Major depressive disorder, single episode, unspecified; F41.9 Anxiety disorder, unspecified; E03.9 Hypothyroidism, unspecified; Z90.49 Acquired absence of other specified parts of digestive tract; Z90.710 Acquired absence of both cervix and uterus; Z98.890 Other specified postprocedural states; Z79.82 Long term (current) use of aspirin; Z79.84 Long term (current) use of oral hypoglycemic drugs; Z79.899 Other long term (current) drug therapy; Z87.891 Personal history of nicotine dependence; Z88.1 Allergy status to other antibiotic agents; Z88.8 Allergy status to other drugs, medicaments and biological substances
CPT/HCPCS: 99212; G0463

== ENCOUNTER → 2020-03-29 | Outpatient (CLI) | payer OTHER ==
[~2020-03-29] MED LIST changes: +ERGO500089 PO; +LEVO125T5 PO; +MIRT-8 PO; -MIRT30TA3 PO; +OXYB10TA26 PO; +OXYC-325 PO
--- NOTE | 2020-03-30 08:05 | CARD ---
MR#: [id number] Date of Study: 03/29/2020 Ordering Physician: PACO QUIGLEY, Referring Physician: PACO QUIGLEY, Tech: Saskia Doshi APPROVED REPORT EXAM: Two-dimensional and M-mode echocardiogram with Doppler and color Doppler. Other Information Quality : AverageHR: 82bpm Technically limited study due to body habitus. INDICATION COPD Atrial Fibrillation RISK FACTORS Hypertension Hyperlipidemia Smoking 2D DIMENSIONS RVDd2.7 (2.9-3.5cm)Left Atrium(2D)3.2 (1.6-4.0cm) IVSd1.1 (0.7-1.1cm)Aortic Root(2D)3.1 (2.0-3.7cm) LVDd5.2 (3.9-5.9cm)LVOT Diameter2.0 (1.8-2.4cm) PWd1.1 (0.7-1.1cm)LVDs3.3 (2.5-4.0cm) Aortic Valve AoV Peak Heath.124.5cm/sAoV VTI23.5cm AO Peak GR.6.2mmHgLVOT Peak Heath.119.5cm/s LVOT VTI 23.10cmAO Mean GR.4mmHg JULIAN (VMAX)2.56of5ROT (VTI)3.12cm2 Mitral Valve MV E Ideffojd05.1cm/sMV DECEL OALD370ys MV A Lwzljsii93.1cm/sMV E Mean Gr.2mmHg MV BNQ89otY/A Ratio0.9 MVA (PHT)2.86cm2 TDI E/Lateral E'9.7E/Medial E'11.3 Pulmonary Valve PV Peak Dhlghyyc24.9cm/sPV Peak Grad.3mmHg Tricuspid Valve TR P. Lxdfwxue574bv/sRAP FBWNKKZL1mzYk TR Peak Gr.86gpYkKTHF62jcBc LEFT VENTRICLE The left ventricle is normal size. There is mild concentric left ventricular hypertrophy. The left ve ntricular systolic function is normal and the ejection fraction is within normal range. The Ejection Fraction is 55% There is normal LV segmental wall motion. Transmitral Doppler flow pattern is Grade I -abnormal relaxation pattern. RIGHT VENTRICLE The right ventricle is normal size. The right ventricle is mildly to moderately hypertrophied. The ri ght ventricular systolic function is normal. ATRIA The left atrium size is normal. The right atrium size is normal. The interatrial septum is intact wit h no evidence for an atrial septal defect or patent foramen ovale as noted on 2-D or Doppler imaging. AORTIC VALVE The aortic valve is normal in structure and function. Doppler and Color Flow revealed trace aortic re gurgitation. There is no significant aortic valvular stenosis. Calculated aortic valve area is 2.90 c m2 with maximum pressure gradient of 7 mmHg and mean pressure gradient of 4 mmHg. MITRAL VALVE The mitral valve is normal in structure and function. There is no evidence of mitral valve prolapse. There is no mitral valve stenosis. Doppler and Color-flow revealed trace mitral regurgitation. TRICUSPID VALVE The tricuspid valve is normal in structure and function. Doppler and Color Flow revealed trace tricus pid regurgitation with an estimated PAP of 19 mmHg. There is no tricuspid valve stenosis. PULMONIC VALVE The pulmonic valve is not well visualized. Doppler and Color Flow revealed trace pulmonic valvular re gurgitation. There is no pulmonic valvular stenosis. GREAT VESSELS The aortic root is normal in size. The IVC is normal in size and collapses >50% with inspiration. PERICARDIAL EFFUSION Prominent epicardial fat pad versus old fibrinous small pericardial effusion noted. Critical Notification Critical Value: No <Conclusion> The left ventricular systolic function is normal and the ejection fraction is within normal range. Th e Ejection Fraction is 55% There is normal LV segmental wall motion. Prominent epicardial fat pad versus old fibrinous small pericardial effusion noted. No evidence of ta mponade. The right ventricle is mildly to moderately hypertrophied. Signed by : Joshua Allen, Electronically Approved : 03/30/2020 08:04:47
== END ==
LOC: ECHO 09:30
PROVIDERS: ATTEND Internal Medicine Cardiovascular Disease
DX: I31.3 Pericardial effusion (noninflammatory) (principal); I48.0 Paroxysmal atrial fibrillation; I11.9 Hypertensive heart disease without heart failure; Z87.891 Personal history of nicotine dependence
CPT/HCPCS: 93306

== ENCOUNTER → 2020-06-07 | Outpatient (CLI) | payer OTHER ==
[~2020-06-07] MED LIST changes: -ERGO500089 PO; -LEVO125T5 PO; -MIRT-8 PO; +MIRT30TA3 PO; -OXYB10TA26 PO; -OXYC-325 PO
--- NOTE | 2020-06-07 13:33 | PDOC ---
Progress Note - Pain Clinic Date of Service: DOS: DATE: 06/07/20 TIME: 13:28 Diagnosis: Dx: Lumbar radiculopathy with lumbar degenerative disc disease lumbar spinal stenosis and lumbar postlaminectomy syndrome History or Present Illness: HPI: 64-year-old female returns to follow-up status post spinal cord stimulator placement at outside facility. Patient reports she is doing very well at least 75% plus improvement with the spinal cord stimulator. Patient reports she is not afraid to get out of bed anymore in the morning she is able to increase her activity to greater ease and comfort walking with greater ease travel with greater ease doing household activities traveling and working with greater ease and standing for longer periods patient reports she is sleeping through the night does not awaken her from sleep still has some pain in her low back and the posterior gluteus posterior thighs but only very minimal patient reports some aching sharp dull tight shooting pain occasionally radiating can be tingling burning and cramping in the back as well in the legs but very manageable. Patient rates her pain as 8 on scale 10 at its worst over the past week 6 on average 6 its least and is a 6 today which she reports is about a 75% improvement from where she was prior to her implant. Patient reports no new motor or sensory deficits no new bowel or bladder incontinence or other complaints. Patient is very pleased with her progress thus far. Physical Exam: VS: Pressure is 124/87 pulse 98 respirations 18 temperature 99.2 F height 5 feet 8 inches weight 229 pounds PE: PHYSICAL EXAMINATION: GENERAL: The patient is awake, alert, oriented, appropriate, very pleasant demeanor HEENT: Shows normocephalic, atraumatic. Extraocular movements are intact and symmetrical. Oral cavity: Mucous membranes moist and pink. NECK: Shows anterior throat supple without palpable lymphadenopathy noted. Swallow reflex symmetrical. ABDOMEN: Soft, nontender, nondistended. No palpable organomegaly is noted. BACK: Shows spine grossly in the midline. Well-healed surgical scar noted and easily palpable spinal cord stimulator generator just left of midline. Some minor flattening of the lumbar lordotic curvature. Lumbar paraspinous muscles show symmetrical on inspection, on palpation shows some moderate tenderness diffusely throughout without specific trigger points, without radiation of pain. The patient has good rotational motion of the lumbar spine, both laterally as well as extension and flexion without significant difficulty. No tenderness over the spinous processes, sacrum or sacroiliac regions. EXTREMITIES: Lower extremities show deep tendon reflexes 1+ in the patellar and tendo calcaneus tendons. Motor exam is 4 on a scale of 5 with right dorsiflex ion, extension, quadriceps and hamstring flexion and 5/5 on the left. Peripheral pulses are 1+ posterior tibial. No peripheral edema is noted bilaterally. Lower extremities are warm and dry to touch, equal in color and appearance. SKIN: Shows warm and dry, good turgor. No edema. No sores, rashes or bruising throughout. Procedure: Procedure: Options were discussed with the patient. Patient's old chart was reviewed as her current medication regimen updated current review of systems updated today as well. As patient is doing very well is very pleased with her progress thus far and her level of comfort with her stimulation, we will have patient follow- up on an as-needed basis. Patient was instructed to contact the office and/or her spinal cord stimulator representatives if stimulation changes or is no longer to level where she is content with it. Medication Injected: Med Injected: None Condition at Discharge: Condition at Discharge: Condition at discharge is stable. HONORIO GARNER MD Jun 07, 2020 13:33
== END | disposition home or self-care (01) ==
LOC: PNCL 12:58
PROVIDERS: ATTEND Anesthesiology
DX: M51.16 Intervertebral disc disorders with radiculopathy, lumbar region (principal); M48.061 Spinal stenosis, lumbar region without neurogenic claudication; M96.1 Postlaminectomy syndrome, not elsewhere classified; I13.0 Hypertensive heart and chronic kidney disease with heart failure and stage 1 through stage 4 chronic kidney disease, or unspecified chronic kidney disease; I50.9 Heart failure, unspecified; E78.00 Pure hypercholesterolemia, unspecified; J43.9 Emphysema, unspecified; K21.9 Gastro-esophageal reflux disease without esophagitis; M19.90 Unspecified osteoarthritis, unspecified site; N18.2 Chronic kidney disease, stage 2 (mild); E03.9 Hypothyroidism, unspecified; F41.9 Anxiety disorder, unspecified; F32.9 Major depressive disorder, single episode, unspecified; Z79.899 Other long term (current) drug therapy; Z90.710 Acquired absence of both cervix and uterus; Z98.890 Other specified postprocedural states; Z87.891 Personal history of nicotine dependence; Z88.1 Allergy status to other antibiotic agents; Z88.2 Allergy status to sulfonamides
CPT/HCPCS: 99212; G0463

== ENCOUNTER → 2020-06-26 | Outpatient (CLI) | payer OTHER ==
[~2020-06-26] MED LIST changes: +IOHEXOL 240 MG/ML 50ML VIAL. PO ONE; +IOHEXOL 300 MG/ML 100ML VIAL. IV ONE
--- NOTE | 2020-06-26 18:09 | RAD ---
Exam: CT abdomen/pelvis with intravenous contrast Indication: Abdominal pain Comparison: CT abdomen and pelvis 05/14/2018 Technique: Helical CT imaging performed of the abdomen and pelvis after the intravenous administratio n of 75 mL Omnipaque 300 contrast. Sagittal and coronal reformats were obtained. One or more of the following individualized dose reduction techniques were utilized for this examinat ion: 1. Automated exposure control 2. Adjustment of the mA and/or kV according to patient size 3. Use of iterative reconstruction technique. Findings: Lower chest: Lung bases are clear. The heart is normal in size. Liver: Liver is mildly enlarged measuring 21 cm in length. Geographic hypoattenuation along the falci form ligament is likely focal fat and unchanged. Gallbladder/Biliary Tree: Gallbladder surgically absent. Mild dilation of the intrahepatic and common bile ducts is unchanged. Pancreas: Normal. Spleen: Normal. Adrenal Glands: Normal. Kidneys/Ureters/Bladder: Kidneys are normal in size and enhance symmetrically. No hydronephrosis. Vis ualized portion of the ureters are normal. Distal ureters and bladder are partially obscured by artif act from hip prostheses. Reproductive Organs: Uterus is surgically absent. No adnexal mass. Stomach, small bowel, and colon: Stomach is normal. No small bowel obstruction. There are surgical ch anges of total colectomy with right lower quadrant ostomy. Vasculature: Abdominal aorta is normal in caliber. Mild calcified aortoiliac atherosclerosis. Lymph Nodes: No lymphadenopathy. Peritoneum and retroperitoneum: No free fluid or free air Bones: There are bilateral total hip prostheses. Posterior decompression and posterior and interbody fusion at L4-L5. Spinal stimulator leads extend cranially in the dorsal canal at the level of T8. Miscellaneous: Large ventral abdominal wall hernia containing fat and some of the small bowel without evidence of complication. Smaller fat-containing left lateral abdominal wall hernia. Impression: 1. No acute abnormality. 2. 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 3. Ventral abdominal wall hernia containing small bowel and fat without evidence of complication. Ad ditional fat-containing left abdominal wall hernia. Electronically signed by: Lauren Gallego MD (06/26/2020 6:06 PM) [id number]
== END ==
LOC: CT 10:13
PROVIDERS: ATTEND Surgery
DX: K43.9 Ventral hernia without obstruction or gangrene (principal); K76.0 Fatty (change of) liver, not elsewhere classified; K83.8 Other specified diseases of biliary tract; Z90.49 Acquired absence of other specified parts of digestive tract; Z90.710 Acquired absence of both cervix and uterus
CPT/HCPCS: 74177; Q9966; Q9967

== ENCOUNTER → 2020-10-05 | Outpatient (CLI) | payer OTHER ==
[2020-08-18 16:19] VITALS: BP 114/69
[~2020-10-05] MED LIST changes: +ERGO500089 PO; -IOHEXOL 240 MG/ML 50ML VIAL. PO ONE; -IOHEXOL 300 MG/ML 100ML VIAL. IV ONE; +LEVO125T5 PO; +MIRT-8 PO; -MIRT30TA3 PO; +OLAN5TAB67 PO; -OLAN5TAB9 PO; +OXYB10TA26 PO; +OXYC-325 PO; +REGADENOSON 0.4 MG/5 ML DISP.SYRIN. IV ONE
--- NOTE | 2020-10-06 12:32 | RAD ---
MR#: [id number] Date of Study: 10/05/2020 Ordering Physician: PACO QUIGLEY, Referring Physician: BRENT EAST Tech: EDU Vaughan APPROVED REPORT Test Type: Pharmacological Stress Nurse/Tech: Eduin Philip RN Test Indications: A-fib, CAD Cardiac History: A-Fib, CAD, Stent in 07, See EMR. Medications: ASA, See EMR. Medical History: Smoker, See EMR. Resting ECG: SR Resting Heart Rate: 60 bpm Resting Blood Pressure: 130/71mmHg Pretest Chest Pain: No chest pain Nurse/Tech Notes Lungs CTA, Heart tones regular. Consent: The procedure was explained to the patient in lay terms. Informed consent was witnessed. Puneet eout was entered into [employer]. History and Stress Test performed by DOROTHEA Teran, ARTHUR (R) (N) Pharm. Details Pharmacologic stress testing was performed using 0.4mg per 5ml of regadenoson given intravenously ove r 7-10 seconds. Stress Symptoms No chest pain or symptoms. POST EXERCISE Reason for Termination: Infusion complete Max HR: 94 bpm Max Blood Pressure: 131/69mmHg Blood Pressure response to exercise: Normal blood pressure response during stress. Heart Rate response to exercise: WNL Chest Pain: No. Arrhythmia: No. ST Change: No. INTERPRETATION Stress EKG Conclusion: The resting EKG shows a sinus rhythm with nonspecific ST-T wave changes. The stress EKG shows no significant changes from baseline. No EKG evidence of stress-induced ischemia. Imaging Protocol IMAGE PROTOCOL: Rest Tc-99m/stress Tc-99m 1 day Rest: Stress: Viability: Radiopharm.Tc99m [id number] Sestamibi Dose9.7mCi 33mCi Duration 15min. 10min. Img Date 10/05/2020 10/05/2020 Inj-Img Fezq96drp. 60min. Rest Admin Site:IV - Left AntecubitalAdministrator:EDU Vaughan Stress Admin Site: IV - Left AntecubitalAdministrator: DOROTHEA Teran, ARRT (R)(N) STRESS DATA End Diast. Vol.66.0mlAv. Heart Rate76.0bpm End Syst. Vol.14.0mlCO Index BSA0.0L/min Myocardial Dbep433.0gEject. Huiugvzv56.0% Stress Rates Pk. Fill Rate3.65EDV/secLVtime Pk. Fill 221.85msec Pk. Empty Rate4.84ESV/secLVtime Pk. Icjbm873.32msec 03/19 Pk. Fill0.85EDV/sec Stress Scores Regional WT1.00Summed WT3.00 Regional WM0.00Summed WM0.00 LV Perfusion The stress scans showed no significant defects. The rest scans showed no significant defects. Nuclear imaging shows no reversible ischemia or infarct. Wall Motion Left ventricular systolic function is normal with no regional wall motion abnormalities and an ejecti on fraction of greater than 70%. LV Perf. Quant 17 Seg. SSS0.00 17 Seg. SRS0.00 17 Seg. SDS0.00 Stress Defect Extent (% LAD)0.00Rest Defect Extent (% LAD)0.00Rev. Defect Extent (% LAD)0.00 Stress Defect Extent (% LCX) 0.00Rest Defect Extent (% LCX)0.00Rev. Defect Extent (% LCX)0.00 Stress Defect Extent (% RCA)0.00Rest Defect Extent (% RCA)0.00Rev. Defect Extent (% RCA)0.00 Stress Defect Extent (% SUJEY)0.00Rest Defect Extent (% SUJEY)0.00Rev. Defect Extent (% SUJEY)0.00 Conclusion 1. No EKG evidence of stress-induced ischemia. 2. Nuclear imaging shows no reversible ischemia or infarct. 3. Left ventricular systolic function is normal with an ejection fraction of greater than 70%. 4. Low risk Lexiscan nuclear stress test. Signed by : Giovanni Sommer MD Electronically Approved : 10/06/2020 12:31:33
== END ==
LOC: NM 10:08
PROVIDERS: ATTEND Internal Medicine Cardiovascular Disease
DX: I48.0 Paroxysmal atrial fibrillation (principal)
CPT/HCPCS: 78452; 93017; A9500; J2785

== ENCOUNTER 2020-10-16 19:38 | Inpatient (IN) | payer OTHER ==
[~2020-10-16] VITALS: Ht 174 cm; Wt 101.3 kg
[~2020-10-16 19:38] MED LIST changes: -REGADENOSON 0.4 MG/5 ML DISP.SYRIN. IV ONE
[2020-10-16] MEDS ORDERED: methylPREDNISolone SOD SUCC PF 125 MG/2 ML VIAL. IV ONE (20:00)
[2020-10-16] MEDS ORDERED: IV NORMAL SALINE 1000ML BAG 1,000 ML IV ONE (20:00)
[2020-10-16] MEDS ORDERED: IPRATRPIUM/ALBUTEROL 0.5/2.5MG 3 ML NEBU. NEB ONE (20:00)
[2020-10-16 20:13] LABS: BASO # 0.1 x10^3/uL (0.0-0.2); BASO % 1 % (0-3); EOS # 0.2 x10^3/uL (0.0-0.7); EOS % 1 % (0-3); HEMOGLOBIN 13.4 g/dL (12.0-15.5); LYMPH # 3.5 x10^3/uL (1.0-4.8); LYMPH % 24 % (24-48); MEAN CORPUSCULAR HEMOGLOBIN 30 pg (25-35); MEAN CORPUSCULAR HGB CONC 33 g/dL (31-37); MEAN CORPUSCULAR VOLUME 91 fL (79-100); MONO # 0.2 x10^3/uL (0.0-1.1); MONO % 1 % (0-9); NEUT # 10.4 x10^3/uL (1.8-7.7); NEUT % 72 % (31-73); PLATELET COUNT 367 x10^3/uL (140-400); RED BLOOD COUNT 4.39 x10^6/uL (3.50-5.40); RED CELL DISTRIBUTION WIDTH 13.8 % (11.5-14.5); WHITE BLOOD COUNT 14.5 x10^3/uL (4.0-11.0)
[2020-10-16 20:19] LABS: CALCIUM 9.6 mg/dL (8.5-10.1); CREATININE 1.4 mg/dL (0.6-1.0); POTASSIUM 4.4 mmol/L (3.5-5.1)
--- NOTE | 2020-10-16 20:24 | PHYS DOC ---
Past Medical History Past Medical History: CHF, COPD, [place], Stroke Additional Past Medical Histor: "C.diffRotted colon out.I have an ileostomy.",R HIP DISLOCATIONS Past Surgical History: Hip Replacement, Hysterectomy, Knee Replacement Additional Past Surgical Histo: Back SX, L ROTA, Cardiac stent,COLON\\RECTUM, BX KNEE, BX THUMB JOINT, R HIP Smoking Status: Former Smoker Alcohol Use: None Drug Use: None General Adult EDM: Chief Complaint: SHORTNESS OF BREATH HPI: HPI: Patient is a 65-year female with a history of COPD, on home oxygen at night, recently admitted to the hospital and treated for pneumonia presents to the ED complaining of continued shortness breath and general weakness, she denies chest pain, no fevers or chills, patient states "I had MRSA in my blood and one doctor said I could go home and once that I should stay and I decided to go home but I am not feeling better". Denies any headache, no neck stiffness or photophobia, cough and wheezing but this is nonproductive, no hemoptysis or night sweats, no leg pain or leg swelling. Review of Systems: Review of Systems: General: no fevers , no chills, +general weakness Eyes: no blurred vision, no diplopia Skin: no rashes Neck: no swelling, no neck stiffness, no neck pain Heme: no bleeding, no lymph node enlargement Ear/Nose/Throat: No sore throat, no runny nose, no hearing loss, no difficulty swallowing Cardiovascular: no Chest pain, no palpitations Respiratory: +dyspnea, + cough, no hemoptysis Gastrointestinal: No abdominal pain, no nausea, no vomiting, no diarrhea, no blood in stool Genitourinary: no dysuria, no hematuria Musculoskeletal: no back pain, no leg pain, no arm pain, no arthralgia Neurologic: no headaches, no dizziness, no focal numbness/tingling, no focal weakness Psych: no depression, no anxiety, no SI/HI *All review of systems are negative other than what is noted above Heart Score: C/O Chest Pain: No Risk Factors: Risk Factors: DM, Current or recent (<one month) smoker, HTN, HLP, family history of CAD, obesity. Risk Scores: Score 0 - 3: 2.5% MACE over next 6 weeks - Discharge Home Score 4 - 6: 20.3% MACE over next 6 weeks - Admit for Clinical Observation Score 7 - 10: 72.7% MACE over next 6 weeks - Early Invasive Strategies Current Medications: Current Medications Medications (Trade) Dose Ordered Sig/Joel Start Time Stop Time Status Last Admin Dose Admin Albuterol/ Ipratropium (Duoneb) 3 ml 1X ONCE 10/16/20 20:00 10/16/20 20:01 DC Methylprednisolone Sodium Succinate (SOLU-Medrol 125MG VIAL) 125 mg 1X ONCE 10/16/20 20:00 10/16/20 20:01 DC Sodium Chloride 1,000 ml @ 1,000 mls/hr 1X ONCE 10/16/20 20:00 10/16/20 20:59 Allergies: Allergies: Allergies Coded Allergies Type Severity Reaction Last Updated Verified apixaban Allergy Intermediate Swelling 08/11/20 Yes hydromorphone Allergy Intermediate 10/12/20 Yes phenytoin sodium Allergy Intermediate Rash 08/11/20 Yes phenytoin sodium extended Allergy Intermediate Rash 10/12/20 Yes I S O L A T I O N *CONTACT* Allergy Unknown 10/13/20 Yes pregabalin Adverse Reaction Intermediate NIGHTMARES 08/11/20 Yes doxycycline Adverse Reaction Mild vomiting 08/11/20 Yes Physical Exam: PE: Gen-well appearing, no acute distress Head: Normocephalic/Atraumatic ENT: atraumatic, PERRLA, EOMI, oropharynx clear Neck: supple, full ROM/strength, no JVD, no nuchal rigidity Lungs: no distress, speaks in full sentences, there is expiratory wheezing bilaterally CV: Tachycardic but regular rate and rhythm, no murmurs or gallops, peripheral pulses are equal in all extremities Abdomen: soft/nontender, no guarding/rebound tenderness, no rigidity, non distended, normoactive bowel sounds, there is a colostomy bag in the right lower quadrant that has normal-appearing stool in the insertion site is clean dry and intact Musculoskeletal: full ROM/strength in all extremities, atraumatic, no swelling Back: full range of motion/strength Skin: intact, no rashes Lymph: no gross KIT Neuro: alert and oriented x 4, CN 2-12 grossly intact, Motor strength is 5/5 in all extremities, no focal sensory deficits, no focal ataxia, ambulatory with steady gait Psych: normal mood/affect Current Patient Data: Labs: Laboratory Tests Test 8/2/21 20:00 White Blood Count 14.5 x10^3/uL (4.0-11.0) H Red Blood Count 4.39 x10^6/uL (3.50-5.40) Hemoglobin 13.4 g/dL (12.0-15.5) Hematocrit 40.0 % (36.0-47.0) Mean Corpuscular Volume 91 fL (79-100) Mean Corpuscular Hemoglobin 30 pg (25-35) Mean Corpuscular Hemoglobin Concent 33 g/dL (31-37) Red Cell Distribution Width 13.8 % (11.5-14.5) Platelet Count 367 x10^3/uL (140-400) Neutrophils (%) (Auto) 72 % (31-73) Lymphocytes (%) (Auto) 24 % (24-48) Monocytes (%) (Auto) 1 % (0-9) Eosinophils (%) (Auto) 1 % (0-3) Basophils (%) (Auto) 1 % (0-3) Neutrophils # (Auto) 10.4 x10^3/uL (1.8-7.7) H Lymphocytes # (Auto) 3.5 x10^3/uL (1.0-4.8) Monocytes # (Auto) 0.2 x10^3/uL (0.0-1.1) Eosinophils # (Auto) 0.2 x10^3/uL (0.0-0.7) Basophils # (Auto) 0.1 x10^3/uL (0.0-0.2) Laboratory Tests 10/16/20 20:00 EKG: EKG: [] Twelve-lead EKG was performed at 8:45 PM: Sinus tachycardia, rate is 115, no obvious acute ischemic findings compared with her prior EKG the rate is mildly increased but no other changes that I can see Radiology/Procedures: Radiology/Procedures: [] Course & Med Decision Making: Course & Med Decision Making Pertinent Labs and Imaging studies reviewed. (See chart for details) [] 65-year-old woman was recently discharged several days ago for pneumonia and presents the ED with continued cough, general weakness and wheezing, on arrival to patient on 3 L of oxygen is 94% and protecting airway, wheezing, likely persistent pneumonia that was not completely treated although the differential included not limited to COPD exacerbation, unlikely any acute heart failure, unlikely PE, dissection, WI, pneumothorax all unlikely etiologies, I will get labs, will give breathing treatments, will give antibiotics to cover MRSA and will likely need to readmit the patient, she is vaccinated to COVID-19 but I will get a rapid test to be on the safe side Delbert Disclaimer: Delbert Disclaimer: This electronic medical record was generated, in whole or in part, using a voice recognition dictation system. Departure Departure Impression: Primary Impression: Pneumonia Qualified Codes: J18.9 - Pneumonia, unspecified organism Disposition: ADMITTED INPATIENT Condition: STABLE Referrals: NICOLAS HICKS MD (PCP) ESTEVAN MOLINA MD Oct 16, 2020 20:24
[2020-10-16 20:25] LABS: ALBUMIN 3.1 g/dL (3.4-5.0); ALBUMIN/GLOBULIN RATIO 0.6 (1.0-1.7); TOTAL BILIRUBIN 0.3 mg/dL (0.2-1.0)
[2020-10-16] MEDS ORDERED: PIPERACILLIN/TAZOBACTAM 4.5 GM in IV NORMAL SALINE 100ML 100 ML IV ONE (20:30)
[2020-10-16] MEDS ORDERED: VANCOMYCIN 1GM IVPB FOR OMNI 250 ML IV ONE (20:30)
--- NOTE | 2020-10-16 20:44 | RAD ---
XR CHEST 1V 10/16/2020 8:19 PM INDICATION: Pneumonia history COMPARISON: 10/12/2020 TECHNIQUE: Portable frontal view of the chest is provided. FINDINGS: The cardiomediastinal silhouette is within normal limits. There is improving patchy interstitial airs pace disease in the left lower lung. There are no significant pleural effusions. There is no pulmonary vascular congestion. No pneumothora x. No suspicious osseous abnormality. Spinal epidural leads are in similar position. IMPRESSION: Improving patchy interstitial airspace disease within the left lower lung with minimal residual. Electronically signed by: Tami Montgomery MD (10/16/2020 8:41 PM) CHRISTY
[2020-10-16] MEDS ORDERED: ONDANSETRON PF 4 MG/2 ML VIAL. IVP PRN (21:00)
[2020-10-16] MEDS ORDERED: ACETAMINOPHEN 325 MG TABLET. PO PRN (21:00)
[2020-10-17] VITALS (7 sets, daily range): BP systolic 103–144; BP diastolic 67–80
--- NOTE | 2020-10-17 02:50 | EKG ---
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
[2020-10-17 04:02] LABS: BASO % 0 % (0-3); EOS % 0 % (0-3); HEMOGLOBIN 12.9 g/dL (12.0-15.5); LYMPH # 0.8 x10^3/uL (1.0-4.8); LYMPH % 7 % (24-48); MEAN CORPUSCULAR HEMOGLOBIN 31 pg (25-35); MEAN CORPUSCULAR HGB CONC 34 g/dL (31-37); MEAN CORPUSCULAR VOLUME 92 fL (79-100); MONO # 0.1 x10^3/uL (0.0-1.1); MONO % 1 % (0-9); NEUT # 10.2 x10^3/uL (1.8-7.7); NEUT % 92 % (31-73); PLATELET COUNT 325 x10^3/uL (140-400); RED BLOOD COUNT 4.14 x10^6/uL (3.50-5.40); RED CELL DISTRIBUTION WIDTH 13.5 % (11.5-14.5); WHITE BLOOD COUNT 11.2 x10^3/uL (4.0-11.0)
[2020-10-17 04:20] LABS: ALBUMIN/GLOBULIN RATIO 0.8 (1.0-1.7); CREATININE 1.3 mg/dL (0.6-1.0); GFR 41.4; POTASSIUM 5.5 mmol/L (3.5-5.1); TOTAL BILIRUBIN 0.5 mg/dL (0.2-1.0); TOTAL PROTEIN 6.8 g/dL (6.4-8.2)
[2020-10-17 04:46] LABS: % LYMPHS 4 % (24-48); % MONOS 1 % (0-10); % SEGS 95 % (35-66); PLT ESTIMATE ADEQUATE (ADEQUATE)
--- NOTE | 2020-10-17 07:14 | PDOC1 ---
History and Physical Date of Admission Date of Admission DATE: 10/17/20 TIME: 07:05 Identification/Chief Complaint Chief Complaint Shortness of breath, back pain Source Source: Chart review, Patient History of Present Illness History of Present Illness Ms Ann is a 65-year female with a history of COPD, chronic diastolic CHF, CAD s/p CASIE, short gut syndrome with ileostomy in place, chronic back pain with spinal stimulator in place who was recently admitted to the hospital for pneumonia and MRSA bacteremia who left AMA returns on 10/16/2020 overnight c/o worsening shortness breath and general weakness, she denies chest pain, no fevers or chills. She does note vaginitis and worsening of her chronic lower back pain and now has pain a bit higher. Denies any headache, no neck stiffness or photophobia, cough and wheezing but this is nonproductive, no hemoptysis or night sweats, no leg pain or leg swelling. EKG sinus tachycardia rate of 115 bpm QTC 461 Chest radiograph with interstitial infiltrate improved from prior. Labs WBC 14.5, Hb 13.47, NA 133, K4.4, BUN 11, CR 1.4, glucose 171 BNP 700, troponin 0 Admitted for further care Past Medical History Cardiovascular: CAD, CHF, HTN, UT, Hyperlipidemia, Other Pulmonary: COPD, Pulmonary embolus CENTRAL NERVOUS SYSTEM: CVA, Periperal neuropathy, Seizure GI: GERD, Other Heme/Onc: Anemia NOS Psych: Anxiety, Depression Musculoskeletal: low back pain, Osteoarthritis Rheumatologic: Fibromyalgia Infectious disease: No pertinent hx Renal/: Chronic renal insuff Endocrine: Hypothyroidism Past Surgical History Past Surgical History: Appendectomy, Cholecystectomy, Hernia Repair, Total hip replacement, Total knee replacement, Hysterectomy, Other Family History Family History: Stroke Family History: Parent Social History Smoke: No ALCOHOL: none Drugs: None Current Problem List Problem List Problems Medical Problems: (1) Pneumonia Status: Acute Current Medications Current Medications Current Medications Sodium Chloride 1,000 ml @ 1,000 mls/hr 1X ONCE IV Last administered on 10/16/20at 20:50; Start 10/16/20 at 20:00; Stop 10/16/20 at 20:59; Status DC Albuterol/ Ipratropium (Duoneb) 3 ml 1X ONCE NEB ; Start 10/16/20 at 20:00; Stop 10/16/20 at 20:01; Status DC Methylprednisolone Sodium Succinate (SOLU-Medrol 125MG VIAL) 125 mg 1X ONCE IV Last administered on 10/16/20at 20:54; Start 10/16/20 at 20:00; Stop 10/16/20 at 20:01; Status DC Piperacillin Sod/ Tazobactam Sod 4.5 gm/Sodium Chloride 100 ml @ 200 mls/hr 1X ONCE IV Last administered on 10/16/20at 20:56; Start 10/16/20 at 20:30; Stop 10/16/20 at 20:59; Status DC Vancomycin HCl 250 ml @ 250 mls/hr 1X ONCE IV Last administered on 10/16/20at 22:27; Start 10/16/20 at 20:30; Stop 10/16/20 at 21:29; Status DC Ondansetron HCl (Zofran) 4 mg PRN Q8HRS PRN IVP NAUSEA/VOMITING 1ST CHOICE; Start 10/16/20 at 21:00; Stop 10/17/20 at 20:59 Acetaminophen (Tylenol) 650 mg PRN Q4HRS PRN PO FEVER > 100.3'F Last administered on 10/16/20at 22:26; Start 10/16/20 at 21:00; Stop 10/17/20 at 20:59 Active Scripts Active Hydrocodone-Apap 7.5-325 (Hydrocodone Bit/Acetaminophen) 1 Tab Tablet 1 Tab PO PRN Q6HRS PRN 30 Days Reported Percocet 5-325 mg Tablet (Oxycodone HCl/Acetaminophen) 1 Each Tablet 1-2 Tab PO PRN Q6HRS PRN MDD 2 Tablet(s) 14 Days Levothyroxine Sodium 125 Mcg Tablet 125 Mcg PO DAILYAC Flonase Allergy Relief (Fluticasone Propionate) 9.9 Ml [place].susp 2 Sprays NS DAILY Oxybutynin Chloride Er (Oxybutynin Chloride) 10 Mg Tab.er.24 10 Mg PO DAILY Ferrous Sulfate 325 Mg Tablet 1 Tab PO TID Zovirax (Acyclovir) 5 Gm Cream..g. 1 Mikki TP 5XDAY Multiple Vitamins (Multivitamin) 1 Each Tablet 1 Tab PO DAILY 30 Days Mirtazapine 30 Mg Tab.rapdis 1 Tab PO QHS 30 Days Montelukast Sodium Tablet (Montelukast Sodium) 10 Mg Tablet 10 Mg PO HS Mupirocin Ointment (Mupirocin) 22 Gm Oint...g. 1 Mikki TP PRN TID PRN Nyamyc (Nystatin) 15 Gm Powder 15 Gm TP PRN PRN Vitamin D2 (Ergocalciferol (Vitamin D2)) 1,250 Mcg Capsule 50,000 Mcg PO WEEKLY Calcium 600 + Vit D Tablet (Calcium Carbonate/Vitamin D3) 1 Each Tablet 1 Each PO BID Albuterol Sulfate Neb Soln (Albuterol Sulfate) 0.63 Mg/3 Ml Vial.neb 1 Vial NEB QID Olanzapine 5 Mg Tablet 1 Tab PO QHS Buspirone Hcl 10 Mg Tablet 1 Tab PO BID Effexor Xr (Venlafaxine Hcl) 150 Mg Cap.er.24h 2 Cap PO DAILY Atorvastatin Calcium 20 Mg Tablet 40 Mg PO HS Xanax (Alprazolam) 1 Mg Tablet 1 Mg PO QID Lasix (Furosemide) 40 Mg Tablet 40 Mg PO BID92 Aspirin 325 Mg Tablet 325 Mg PO DAILY Gabapentin 600 Mg Tablet 600 Mg PO TID Tizanidine Hcl 4 Mg Tablet 4 Mg PO QID Omeprazole 20 Mg Tablet.dr 20 Mg PO DAILY07 Klor-Con (Potassium Chloride) 20 Meq Packet 40 Meq PO TID Proair Hfa Inhaler (Albuterol Sulfate) 8.5 Gm Hfa.aer.ad 8.5 Gm IH Q4HRS PRN Advair 500-50 Diskus (Fluticasone/Salmeterol) 1 Each Disk.w.dev 1 Each IH BID Allergies Allergies: Coded Allergies: apixaban (Verified Allergy, Intermediate, Swelling, 08/11/20) hydromorphone (Verified Allergy, Intermediate, 10/12/20) TOLERATES LORTAB AND MORPHINE phenytoin sodium (Verified Allergy, Intermediate, Rash, 08/11/20) phenytoin sodium extended (Verified Allergy, Intermediate, Rash, 10/12/20) I S O L A T I O N *CONTACT* (Verified Allergy, Unknown, 10/13/20) mrsa pregabalin (Verified Adverse Reaction, Intermediate, NIGHTMARES, 08/11/20) doxycycline (Verified Adverse Reaction, Mild, vomiting, 08/11/20) ROS General: YES: Fatigue, Malaise; No: Chills, Night Sweats, Appetite, Other PSYCHOLOGICAL ROS: YES: Anxiety; No: Behavioral Disorder, Concentration difficultie, Decreased libido, Depression, Disorientation, Hallucinations, Hostility, Irritablity, Memory difficulties, Mood Swings, Obsessive thoughts, Physical abuse, Sexual abuse, Sleep disturbances, Suicidal ideation, Other Eyes: No Blurry vision, No Decreased vision, No Double vision, No Dry eyes, No Excessive tearing, No Eye Pain, No Itchy Eyes, No Loss of vision, No Photophobia, No Scotomata, No Uses contacts, No Uses glasses, No Other HEENT: No: Heacaches, Visual Changes, Hearing change, Nasal congestion, Nasal discharge, Oral lesions, Sinus pain, Sore Throat, Epistaxis, Sneezing, Snoring, Tinnitus, Vertigo, Vocal changes, Other ALLERGY AND IMMUNOLOGY: No: Hives, Insect Bite Sensitivity, Itchy/Watery Eyes, Nasal Congestion, Post Nasal Drip, Seasonal Allergies, Other Hematological and Lymphatic: No: Bleeding Problems, Blood Clots, Blood Transfusions, Brusing, Night Sweats, Pallor, Swollen Lymph Nodes, Other ENDOCRINE: No: Breast Changes, Galactorrhea, Hair Pattern Changes, Hot Flashes, Malaise/lethargy, Mood Swings, Palpitations, Polydipsia/polyuria, Skin Changes, Temperature Intolerance, Unexpected Weight Changes, Other Respiratory: No: Cough, Hemoptysis, Orthopnea, Pleuritic Pain, Shortness of breath, SOB with excertion, Sputum Changes, Stridor, Tachypnea, Wheezing, Other Cardiovascular: No Chest Pain, No Palpitations, No Orthopnea, No Paroxysmal Noc. Dyspnea, No Edema, No Lt Headedness, No Other Gastrointestinal: Yes Abdominal Pain; No Nausea, No Vomiting, No Diarrhea, No Constipation, No Melena, No Hematochezia, No Other Genitourinary: No Dysuria, No Frequency, No Incontinence, No Hematuria, No Retention, No Discharge, No Urgency, No Pain, No Flank Pain, No Other, No , No , No , No , No , No , No Musculoskeletal: Yes Gait Disturbance, Yes Joint Stiffness, Yes Muscle Pain; No Joint Pain, No Joint Swelling, No Muscular Weakness, No Pain In:, No Swelling In:, No Other Neurological: No Behavorial Changes, No Bowel/Bladder ControlChng, No Confusion, No Dizziness, No Gait Disturbance, No Headaches, No Impaired Coord/balance, No Memory Loss, No Numbness/Tingling, No Seizures, No Speech Problems, No Tremors, No Visual Changes, No Weakness, No Other Skin: No Dry Skin, No Eczema, No Hair Changes, No Lumps, No Mole Changes, No Mottling, No Nail Changes, No Pruritus, No Rash, No Skin Lesion Changes, No Other, No Acne Physical Exam General: Alert, Oriented X3, Cooperative, moderate distress HEENT: Atraumatic, PERRLA, EOMI, Mucous membr. moist/pink Lungs: Clear to auscultation, Normal air movement Heart: S1S2, RRR, no thrills, no rubs, no gallops, no murmurs Abdomen: Normal bowel sounds, Soft, No tenderness, No hepatosplenomegaly, No masses Extremities: No clubbing, No cyanosis, No edema, Normal pulses, No tenderness/swelling Skin: No rashes, No breakdown, No significant lesion Neuro: Normal gait, Normal speech, Strength at 5/5 X4 ext, Normal tone, Sensation intact, Cranial nerves 3-12 NL, Reflexes 2+ Psych/Mental Status: Mental status NL, Mood NL Vitals Vitals Vital Signs Date Time Temp Pulse Resp B/P (MAP) Pulse Ox O2 Delivery O2 Flow Rate FiO2 10/17/20 03:13 97.4 80 18 120/73 (89) 96 Nasal Cannula 2.0 97.4 Labs Labs Laboratory Tests Test 10/16/20 20:00 10/16/20 21:00 10/17/20 03:10 White Blood Count 14.5 x10^3/uL (4.0-11.0) 11.2 x10^3/uL (4.0-11.0) Red Blood Count 4.39 x10^6/uL (3.50-5.40) 4.14 x10^6/uL (3.50-5.40) Hemoglobin 13.4 g/dL (12.0-15.5) 12.9 g/dL (12.0-15.5) Hematocrit 40.0 % (36.0-47.0) 38.0 % (36.0-47.0) Mean Corpuscular Volume 91 fL (79-100) 92 fL (79-100) Mean Corpuscular Hemoglobin 30 pg (25-35) 31 pg (25-35) Mean Corpuscular Hemoglobin Concent 33 g/dL (31-37) 34 g/dL (31-37) Red Cell Distribution Width 13.8 % (11.5-14.5) 13.5 % (11.5-14.5) Platelet Count 367 x10^3/uL (140-400) 325 x10^3/uL (140-400) Neutrophils (%) (Auto) 72 % (31-73) 92 % (31-73) Lymphocytes (%) (Auto) 24 % (24-48) 7 % (24-48) Monocytes (%) (Auto) 1 % (0-9) 1 % (0-9) Eosinophils (%) (Auto) 1 % (0-3) 0 % (0-3) Basophils (%) (Auto) 1 % (0-3) 0 % (0-3) Neutrophils # (Auto) 10.4 x10^3/uL (1.8-7.7) 10.2 x10^3/uL (1.8-7.7) Lymphocytes # (Auto) 3.5 x10^3/uL (1.0-4.8) 0.8 x10^3/uL (1.0-4.8) Monocytes # (Auto) 0.2 x10^3/uL (0.0-1.1) 0.1 x10^3/uL (0.0-1.1) Eosinophils # (Auto) 0.2 x10^3/uL (0.0-0.7) 0.0 x10^3/uL (0.0-0.7) Basophils # (Auto) 0.1 x10^3/uL (0.0-0.2) 0.0 x10^3/uL (0.0-0.2) Sodium Level 133 mmol/L (136-145) 134 mmol/L (136-145) Potassium Level 4.4 mmol/L (3.5-5.1) 5.5 mmol/L (3.5-5.1) Chloride Level 95 mmol/L (98-107) 98 mmol/L (98-107) Carbon Dioxide Level 25 mmol/L (21-32) 24 mmol/L (21-32) Anion Gap 13 (6-14) 12 (6-14) Blood Urea Nitrogen 11 mg/dL (7-20) 14 mg/dL (7-20) Creatinine 1.4 mg/dL (0.6-1.0) 1.3 mg/dL (0.6-1.0) Estimated GFR (Cockcroft-Gault) 38.0 41.4 BUN/Creatinine Ratio 8 (6-20) 11 (6-20) Glucose Level 171 mg/dL (70-99) 149 mg/dL (70-99) Calcium Level 9.6 mg/dL (8.5-10.1) 9.0 mg/dL (8.5-10.1) Total Bilirubin 0.3 mg/dL (0.2-1.0) 0.5 mg/dL (0.2-1.0) Aspartate Amino Transf (AST/SGOT) 28 U/L (15-37) 20 U/L (15-37) Alanine Aminotransferase (ALT/SGPT) 35 U/L (14-59) 34 U/L (14-59) Alkaline Phosphatase 136 U/L (46-116) 134 U/L (46-116) Troponin I Quantitative < 0.017 ng/mL (0.000-0.055) < 0.017 ng/mL (0.000-0.055) XE-Ifb-T-Type Natriuretic Peptide 700 pg/mL (0-124) Total Protein 8.0 g/dL (6.4-8.2) 6.8 g/dL (6.4-8.2) Albumin 3.1 g/dL (3.4-5.0) 3.0 g/dL (3.4-5.0) Albumin/Globulin Ratio 0.6 (1.0-1.7) 0.8 (1.0-1.7) Lipase 150 U/L (73-393) SARS-CoV-2 Antigen (Rapid) Negative (NEGATIVE) Segmented Neutrophils % 95 % (35-66) Lymphocytes % 4 % (24-48) Monocytes % 1 % (0-10) Platelet Estimate Adequate (ADEQUATE) Laboratory Tests Test 10/16/20 20:00 10/16/20 21:00 10/17/20 03:10 White Blood Count 14.5 x10^3/uL (4.0-11.0) 11.2 x10^3/uL (4.0-11.0) Red Blood Count 4.39 x10^6/uL (3.50-5.40) 4.14 x10^6/uL (3.50-5.40) Hemoglobin 13.4 g/dL (12.0-15.5) 12.9 g/dL (12.0-15.5) Hematocrit 40.0 % (36.0-47.0) 38.0 % (36.0-47.0) Mean Corpuscular Volume 91 fL (79-100) 92 fL (79-100) Mean Corpuscular Hemoglobin 30 pg (25-35) 31 pg (25-35) Mean Corpuscular Hemoglobin Concent 33 g/dL (31-37) 34 g/dL (31-37) Red Cell Distribution Width 13.8 % (11.5-14.5) 13.5 % (11.5-14.5) Platelet Count 367 x10^3/uL (140-400) 325 x10^3/uL (140-400) Neutrophils (%) (Auto) 72 % (31-73) 92 % (31-73) Lymphocytes (%) (Auto) 24 % (24-48) 7 % (24-48) Monocytes (%) (Auto) 1 % (0-9) 1 % (0-9) Eosinophils (%) (Auto) 1 % (0-3) 0 % (0-3) Basophils (%) (Auto) 1 % (0-3) 0 % (0-3) Neutrophils # (Auto) 10.4 x10^3/uL (1.8-7.7) 10.2 x10^3/uL (1.8-7.7) Lymphocytes # (Auto) 3.5 x10^3/uL (1.0-4.8) 0.8 x10^3/uL (1.0-4.8) Monocytes # (Auto) 0.2 x10^3/uL (0.0-1.1) 0.1 x10^3/uL (0.0-1.1) Eosinophils # (Auto) 0.2 x10^3/uL (0.0-0.7) 0.0 x10^3/uL (0.0-0.7) Basophils # (Auto) 0.1 x10^3/uL (0.0-0.2) 0.0 x10^3/uL (0.0-0.2) Sodium Level 133 mmol/L (136-145) 134 mmol/L (136-145) Potassium Level 4.4 mmol/L (3.5-5.1) 5.5 mmol/L (3.5-5.1) Chloride Level 95 mmol/L (98-107) 98 mmol/L (98-107) Carbon Dioxide Level 25 mmol/L (21-32) 24 mmol/L (21-32) Anion Gap 13 (6-14) 12 (6-14) Blood Urea Nitrogen 11 mg/dL (7-20) 14 mg/dL (7-20) Creatinine 1.4 mg/dL (0.6-1.0) 1.3 mg/dL (0.6-1.0) Estimated GFR (Cockcroft-Gault) 38.0 41.4 BUN/Creatinine Ratio 8 (6-20) 11 (6-20) Glucose Level 171 mg/dL (70-99) 149 mg/dL (70-99) Calcium Level 9.6 mg/dL (8.5-10.1) 9.0 mg/dL (8.5-10.1) Total Bilirubin 0.3 mg/dL (0.2-1.0) 0.5 mg/dL (0.2-1.0) Aspartate Amino Transf (AST/SGOT) 28 U/L (15-37) 20 U/L (15-37) Alanine Aminotransferase (ALT/SGPT) 35 U/L (14-59) 34 U/L (14-59) Alkaline Phosphatase 136 U/L (46-116) 134 U/L (46-116) Troponin I Quantitative < 0.017 ng/mL (0.000-0.055) < 0.017 ng/mL (0.000-0.055) ZF-Jnq-X-Type Natriuretic Peptide 700 pg/mL (0-124) Total Protein 8.0 g/dL (6.4-8.2) 6.8 g/dL (6.4-8.2) Albumin 3.1 g/dL (3.4-5.0) 3.0 g/dL (3.4-5.0) Albumin/Globulin Ratio 0.6 (1.0-1.7) 0.8 (1.0-1.7) Lipase 150 U/L (73-393) SARS-CoV-2 Antigen (Rapid) Negative (NEGATIVE) Segmented Neutrophils % 95 % (35-66) Lymphocytes % 4 % (24-48) Monocytes % 1 % (0-10) Platelet Estimate Adequate (ADEQUATE) Images Images Chest radiograph: The cardiomediastinal silhouette is within normal limits. There is improving patchy interstitial airspace disease in the left lower lung. There are no significant pleural effusions. There is no pulmonary vascular congestion. No pneumothorax. No suspicious osseous abnormality. Spinal epidural leads are in similar posit ion. IMPRESSION: Improving patchy interstitial airspace disease within the left lower lung with minimal residual. VTE Prophylaxis Ordered VTE Prophylaxis Devices: No VTE Pharmacological Prophylaxi: Yes Assessment/Plan Assessment/Plan A/P: Acute hypoxic respiratory failure, acute bronchitis in COPD patient - aggressive nebs. Bilateral lower lobe CAP - vancomycin. Will add zosyn. Consult ID given prior ceftaroline infusion due to MRSA bacteremia MRSA bacteremia - incomplete treatment, went home on zyvox. Cont vancomycin. Consult ID, f/u repeat blood cultures. 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
[2020-10-17] MEDS ORDERED: guaiFENesin DM 200MG/20MG 10 ML SYRUP PO PRN (07:15)
[2020-10-17] MEDS ORDERED: ALBUTEROL SULFATE 2.5 MG/3 ML NEBU. NEB PRN (07:15)
[2020-10-17] MEDS ORDERED: VANCOMYCIN PER PHARMACY MC PRN (07:15)
[2020-10-17] MEDS ORDERED: DEXTROSE 50% 25 GM / 50ML DISP.SYRIN. IV PRN (07:30)
[2020-10-17] MEDS ORDERED: PIP/TAZO PER PHARMACY MC PRN (07:30)
[2020-10-17] MEDS ORDERED: ACETAMINOPHEN 325 MG TABLET. PO PRN (07:30)
[2020-10-17] MEDS: IPRATRPIUM/ALBUTEROL 0.5/2.5MG 3 ML NEBU. NEB SCH ×4 (08:00→20:00)
[2020-10-17] MEDS ORDERED: VANCOMYCIN 1.5 GM in IV NORMAL SALINE 500ML BAG 500 ML IV ONE (08:00)
[2020-10-17] MEDS: INSULIN LISPRO 300 UNITS/3 ML VIAL. SQ SCH ×3 (08:00→17:13)
[2020-10-17] MEDS: LEVOTHYROXINE 125 MCG TABLET PO SCH (08:17)
[2020-10-17] MEDS: PANTOPRAZOLE 40 MG TABLET.DR. PO SCH (08:17)
[2020-10-17] MEDS: BUDESONIDE 0.5 MG/2 ML NEBU. NEB SCH ×2 (11:35→20:40)
[2020-10-17] MEDS: ASPIRIN 325 MG TABLET PO SCH (11:45)
[2020-10-17] MEDS: FLUTICASONE 50MCG/NASAL SPRAY 16GM BOTTLE. NS SCH (11:45)
[2020-10-17] MEDS: GABAPENTIN 300 MG CAPSULE. PO SCH ×3 (11:46→21:02)
[2020-10-17] MEDS: FUROSEMIDE 40 MG TABLET. PO SCH ×2 (11:46→14:10)
[2020-10-17] MEDS: busPIRone 10 MG TABLET. PO SCH ×2 (11:46→21:02)
[2020-10-17] MEDS ORDERED: FLUCONAZOLE 100 MG TABLET. PO ONE (12:00)
[2020-10-17] MEDS: HYDROcodone/APAP 7.5/325MG 1 TAB TABLET PO PRN ×2 (12:11→21:03)
[2020-10-17] MEDS: PIPERACILLIN/TAZOBACTAM 4.5 GM in IV NORMAL SALINE 100ML 100 ML IV SCH ×4 (12:13→23:21)
--- NOTE | 2020-10-17 12:13 | NUR ---
SW following. Discussed with RN, pt from home alone, 2L (uses PRN at home) regular diet, rapid COVID-19 negative. SW familiar with pt from previous admission, pt declined home health and SNF upon discharge - reported she has some help at home already. RN advised no SW needs at this time. SW will continue to follow.
--- NOTE | 2020-10-17 14:05 | NUR ---
Pharmacy Vancomycin Dosing Note S:Consulted to monitor and dose vancomycin started 10/16/20. O:BELLA ROACH is a 65 year old F with MRSA Bacteremia. Height: 5 feet, 8.5 inches Weight: 104.2 kg [place] Body Weight: 65.05 Adjusted Body Weight: 80.71 Dosing Weight: Actual Other Antibiotics: zosyn LABS: Last BUN: 14 Last Creatinine: 1.3 Creatinine Clearance: 56 mL/min Last WBC: 11.2 Last Procalcitonin: -- Tmax (past 24 hours): 98.6 Microbiology: 10/16: blood cx pending I/O: 1350 / 350 Last dose given 10/17/20 at 1318 Vancomycin Dosing: Dosing Weight: Actual Target Trough: 15-20 A: Based on: patient's age, weight and renal function. P: 1. Begin Vancomycin 1500 mg IV q24h. 2. Follow up Trough level on 10/19/20 at 1230. 3. Pharmacy will continue to monitor, follow and adjust therapy as needed. GREGG RICH Little, 10/17/20 [id number]
[2020-10-17] MEDS: MONTELUKAST SODIUM 10 MG TABLET. PO SCH (21:01)
[2020-10-17] MEDS: MIRTAZAPINE 15 MG TABLET PO SCH (21:02)
[2020-10-17] MEDS: OLANZapine 5 MG TABLET PO SCH (21:02)
[2020-10-17] MEDS: ATORVASTATIN CALCIUM 20 MG TABLET PO SCH (21:02)
[2020-10-18 01:25] LABS: HEMOGLOBIN A1C 6.7 % (4.8-5.6)
[2020-10-18 03:00] VITALS: BP 121/77
[2020-10-18] MEDS: HYDROcodone/APAP 7.5/325MG 1 TAB TABLET PO PRN ×3 (03:40→18:07)
[2020-10-18 04:35] LABS: BASO % 0 % (0-3); EOS % 0 % (0-3); HEMATOCRIT 38.1 % (36.0-47.0); HEMOGLOBIN 12.5 g/dL (12.0-15.5); LYMPH # 3.6 x10^3/uL (1.0-4.8); LYMPH % 31 % (24-48); MEAN CORPUSCULAR HEMOGLOBIN 31 pg (25-35); MEAN CORPUSCULAR HGB CONC 33 g/dL (31-37); MEAN CORPUSCULAR VOLUME 93 fL (79-100); MONO # 0.4 x10^3/uL (0.0-1.1); MONO % 3 % (0-9); NEUT # 7.5 x10^3/uL (1.8-7.7); NEUT % 65 % (31-73); PLATELET COUNT 359 x10^3/uL (140-400); RED BLOOD COUNT 4.09 x10^6/uL (3.50-5.40); RED CELL DISTRIBUTION WIDTH 13.9 % (11.5-14.5); WHITE BLOOD COUNT 11.5 x10^3/uL (4.0-11.0)
[2020-10-18 04:43] LABS: CREATININE 1.7 mg/dL (0.6-1.0); GFR 30.4; POTASSIUM 3.9 mmol/L (3.5-5.1)
[2020-10-18] MEDS: PIPERACILLIN/TAZOBACTAM 4.5 GM in IV NORMAL SALINE 100ML 100 ML IV SCH (06:31)
[2020-10-18 07:00] VITALS: BP 120/67
--- NOTE | 2020-10-18 07:15 | PDOC ---
[employer] PROGRESS NOTE Date of Service DOS: DATE: 10/18/20 TIME: 07:10 Chief Complaint Chief Complaint A/P: Acute hypoxic respiratory failure, acute bronchitis in COPD patient - aggressive nebs. Bilateral lower lobe CAP - vancomycin. Will add zosyn. Consult ID given prior ceftaroline infusion due to MRSA bacteremia MRSA bacteremia - incomplete treatment, went home on zyvox. Cont vancomycin. Consult ID, f/u repeat blood cultures. 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, with prior illness CHF COPD Chronic back pain - spine stimulator in place H/o Stroke FEN - Cardiac diet PPX - heparin FULL CODE Dispo - inpatient History of Present Illness History of Present Illness Ms Ann is a 65-year female with a history of COPD, chronic diastolic CHF, CAD s/p CASIE, short gut syndrome with ileostomy in place, chronic back pain with spinal stimulator in place who was recently admitted to the hospital for pneumonia and MRSA bacteremia who left AMA returns on 10/16/2020 overnight c/o worsening shortness breath and general weakness, she denies chest pain, no fevers or chills. She does note vaginitis and worsening of her chronic lower back pain and now has pain a bit higher. Denies any headache, no neck stiffness or photophobia, cough and wheezing but this is nonproductive, no hemoptysis or night sweats, no leg pain or leg swelling. EKG sinus tachycardia rate of 115 bpm QTC 461 Chest radiograph with interstitial infiltrate improved from prior. Labs WBC 14.5, Hb 13.47, NA 133, K4.4, BUN 11, CR 1.4, glucose 171 BNP 700, troponin 0 Admitted for further care Afebrile. Pain reasonably controlled but she is complaining of a yeast infection despite having p.o. fluconazole. Plan for PICC and BURCE after discussion with infectious diseases. Vitals/I&O Vitals/I&O: Vital Signs Date Time Temp Pulse Resp B/P (MAP) Pulse Ox O2 Delivery O2 Flow Rate FiO2 10/18/20 04:10 16 96 Nasal Cannula 10/18/20 03:00 97.9 69 121/77 (92) 97.9 8/3/21 23:00 2.0 I & O 10/17/20 10/17/20 10/18/20 15:00 23:00 07:00 Intake Total 1194 ml 200 ml Balance 1194 ml 200 ml Physical Exam General: Alert, Oriented X3, Cooperative, moderate distress Lungs: Other Abdomen: Normal bowel sounds, Soft, No tenderness, No hepatosplenomegaly, No masses Extremities: No clubbing, No cyanosis, No edema, Normal pulses, No tenderness/swelling Skin: No rashes, No breakdown, No significant lesion Labs Labs: Laboratory Tests Test 10/17/20 08:44 10/17/20 10:59 10/17/20 17:12 10/17/20 21:30 Glucose (Fingerstick) 131 mg/dL (70-99) 157 mg/dL (70-99) 126 mg/dL (70-99) 155 mg/dL (70-99) Test 10/18/20 04:00 10/18/20 07:07 White Blood Count 11.5 x10^3/uL (4.0-11.0) Red Blood Count 4.09 x10^6/uL (3.50-5.40) Hemoglobin 12.5 g/dL (12.0-15.5) Hematocrit 38.1 % (36.0-47.0) Mean Corpuscular Volume 93 fL (79-100) Mean Corpuscular Hemoglobin 31 pg (25-35) Mean Corpuscular Hemoglobin Concent 33 g/dL (31-37) Red Cell Distribution Width 13.9 % (11.5-14.5) Platelet Count 359 x10^3/uL (140-400) Neutrophils (%) (Auto) 65 % (31-73) Lymphocytes (%) (Auto) 31 % (24-48) Monocytes (%) (Auto) 3 % (0-9) Eosinophils (%) (Auto) 0 % (0-3) Basophils (%) (Auto) 0 % (0-3) Neutrophils # (Auto) 7.5 x10^3/uL (1.8-7.7) Lymphocytes # (Auto) 3.6 x10^3/uL (1.0-4.8) Monocytes # (Auto) 0.4 x10^3/uL (0.0-1.1) Eosinophils # (Auto) 0.0 x10^3/uL (0.0-0.7) Basophils # (Auto) 0.0 x10^3/uL (0.0-0.2) Sodium Level 134 mmol/L (136-145) Potassium Level 3.9 mmol/L (3.5-5.1) Chloride Level 97 mmol/L (98-107) Carbon Dioxide Level 26 mmol/L (21-32) Anion Gap 11 (6-14) Blood Urea Nitrogen 18 mg/dL (7-20) Creatinine 1.7 mg/dL (0.6-1.0) Estimated GFR (Cockcroft-Gault) 30.4 Glucose Level 110 mg/dL (70-99) Calcium Level 9.0 mg/dL (8.5-10.1) Glucose (Fingerstick) 98 mg/dL (70-99) Assessment and Plan Assessmemt and Plan Problems Medical Problems: (1) Pneumonia Status: Acute Comment Review of Relevant I have reviewed the following items chris (where applicable) has been applied. Medications: Current Medications Medications (Trade) Dose Ordered Sig/Joel Route PRN Reason Start Time Stop Time Status Last Admin Dose Admin Vancomycin HCl (Vanco Per Pharmacy) 1 each PRN DAILY PRN MC SEE COMMENTS 10/17/20 07:15 10/17/20 14:05 Guaifenesin (Robitussin Dm) 10 ml PRN Q6HRS PRN PO COUGH 10/17/20 07:15 10/17/20 11:46 Budesonide (Pulmicort) 0.5 mg RTBID NEB 10/17/20 08:00 10/17/20 20:40 Albuterol/ Ipratropium (Duoneb) 3 ml RTQID NEB 10/17/20 08:00 10/17/20 20:00 Aspirin (Nader Aspirin) 325 mg DAILY PO 10/17/20 09:00 10/17/20 11:45 Atorvastatin Calcium (Lipitor) 40 mg HS PO 10/17/20 21:00 10/17/20 21:02 Buspirone HCl (Buspar) 10 mg BID PO 10/17/20 09:00 10/17/20 21:02 Furosemide (Lasix) 40 mg BID92 PO 10/17/20 09:00 10/17/20 14:10 Levothyroxine Sodium (Synthroid) 125 mcg DAILYAC PO 10/17/20 07:30 10/17/20 08:17 Montelukast Sodium (Singulair) 10 mg HS PO 10/17/20 21:00 10/17/20 21:01 Olanzapine (ZyPREXA) 5 mg QHS PO 10/17/20 21:00 10/17/20 21:02 Fluticasone Propionate (Flonase) 2 spray DAILY NS 10/17/20 09:00 10/17/20 11:45 Gabapentin (Neurontin) 600 mg TID PO 10/17/20 09:00 10/17/20 21:02 Mirtazapine (Remeron) 30 mg QHS PO 10/17/20 21:00 10/17/20 21:02 Pantoprazole Sodium (Protonix) 40 mg DAILYAC PO 10/17/20 07:30 10/17/20 08:17 Insulin Human Lispro (HumaLOG) 0-9 UNITS TIDWMEALS SQ 10/17/20 08:00 10/17/20 12:28 Vancomycin HCl 1.5 gm/Sodium Chloride 500 ml @ 250 mls/hr 1X ONCE IV 10/17/20 08:00 10/17/20 09:59 DC 10/17/20 13:18 Piperacillin Sod/ Tazobactam Sod 4.5 gm/Sodium Chloride 100 ml @ 200 mls/hr Q6HRS IV 10/17/20 08:00 10/18/20 06:31 Fluconazole (Diflucan) 150 mg 1X ONCE PO 10/17/20 12:00 10/17/20 12:01 DC 10/17/20 12:16 Acetaminophen/ Hydrocodone Bitart (Lortab 7.5/325) 1 tab PRN Q6HRS PRN PO PAIN 10/17/20 12:00 10/18/20 03:40 Justifications for Admission Other Justification Hypoxic respiratory failure DAVE WHITLEY MD Oct 18, 2020 07:15
[2020-10-18] MEDS: IPRATRPIUM/ALBUTEROL 0.5/2.5MG 3 ML NEBU. NEB SCH ×4 (07:19→20:05)
[2020-10-18] MEDS: BUDESONIDE 0.5 MG/2 ML NEBU. NEB SCH ×2 (07:20→20:05)
[2020-10-18] MEDS: INSULIN LISPRO 300 UNITS/3 ML VIAL. SQ SCH ×3 (07:36→17:00)
[2020-10-18] MEDS: PANTOPRAZOLE 40 MG TABLET.DR. PO SCH (07:48)
[2020-10-18] MEDS: LEVOTHYROXINE 125 MCG TABLET PO SCH (07:48)
[2020-10-18] MEDS: FLUTICASONE 50MCG/NASAL SPRAY 16GM BOTTLE. NS SCH (10:10)
[2020-10-18] MEDS: busPIRone 10 MG TABLET. PO SCH ×2 (10:11→20:59)
[2020-10-18] MEDS: FUROSEMIDE 40 MG TABLET. PO SCH ×2 (10:11→16:00)
[2020-10-18] MEDS: ASPIRIN 325 MG TABLET PO SCH (10:11)
[2020-10-18] MEDS: GABAPENTIN 300 MG CAPSULE. PO SCH ×3 (10:12→20:59)
--- NOTE | 2020-10-18 10:39 | PDOC ---
Infectious Disease Note Subjective Subjective Pt is back , is feeling ok, no new complaints ROS ROS no n/v/d/sob/fever Vital Sign Vital Signs Vital Signs Date Time Temp Pulse Resp B/P (MAP) Pulse Ox O2 Delivery O2 Flow Rate FiO2 10/18/20 07:21 98 Nasal Cannula 3.0 10/18/20 07:00 97.6 63 18 120/67 (84) 97.6 Physical Exam PHYSICAL EXAM GENERAL: Alert, 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 female, appears comfortable, nontoxic appearing, lying in bed comfortably, in no acute distress. HEENT: Normocephalic, atraumatic. Anicteric. Oral mucosa is moist. NECK: Supple. LUNGS: Decreased breath sounds at the bases. HEART: S1, S2. No gallops or murmurs. ABDOMEN: Soft, nontender, nondistended. Ileostomy in place. Ileostomy without signs of complications. EXTREMITIES: No edema, no cyanosis. DERMATOLOGIC: Warm, dry. No generalized rash. NEUROLOGIC: Alert, 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. Grossly nonfocal. PSYCHIATRIC: Calm and cooperative. Labs Lab Laboratory Tests Test 10/17/20 10:59 10/17/20 17:12 10/17/20 21:30 10/18/20 04:00 Glucose (Fingerstick) 157 mg/dL (70-99) 126 mg/dL (70-99) 155 mg/dL (70-99) White Blood Count 11.5 x10^3/uL (4.0-11.0) Red Blood Count 4.09 x10^6/uL (3.50-5.40) Hemoglobin 12.5 g/dL (12.0-15.5) Hematocrit 38.1 % (36.0-47.0) Mean Corpuscular Volume 93 fL (79-100) Mean Corpuscular Hemoglobin 31 pg (25-35) Mean Corpuscular Hemoglobin Concent 33 g/dL (31-37) Red Cell Distribution Width 13.9 % (11.5-14.5) Platelet Count 359 x10^3/uL (140-400) Neutrophils (%) (Auto) 65 % (31-73) Lymphocytes (%) (Auto) 31 % (24-48) Monocytes (%) (Auto) 3 % (0-9) Eosinophils (%) (Auto) 0 % (0-3) Basophils (%) (Auto) 0 % (0-3) Neutrophils # (Auto) 7.5 x10^3/uL (1.8-7.7) Lymphocytes # (Auto) 3.6 x10^3/uL (1.0-4.8) Monocytes # (Auto) 0.4 x10^3/uL (0.0-1.1) Eosinophils # (Auto) 0.0 x10^3/uL (0.0-0.7) Basophils # (Auto) 0.0 x10^3/uL (0.0-0.2) Sodium Level 134 mmol/L (136-145) Potassium Level 3.9 mmol/L (3.5-5.1) Chloride Level 97 mmol/L (98-107) Carbon Dioxide Level 26 mmol/L (21-32) Anion Gap 11 (6-14) Blood Urea Nitrogen 18 mg/dL (7-20) Creatinine 1.7 mg/dL (0.6-1.0) Estimated GFR (Cockcroft-Gault) 30.4 Glucose Level 110 mg/dL (70-99) Calcium Level 9.0 mg/dL (8.5-10.1) Test 10/18/20 07:07 Glucose (Fingerstick) 98 mg/dL (70-99) Micro BC + MRSA 10/09 Sputum MRSA BC neg 10/12 and 10/16 Objective Assessment IMPRESSION: 1. Sepsis from Gram-positive bacteremia. 2. Staphylococcus aureus bacteremia, MRSA 3. Leukocytosis. 4. Pneumonia, Staph aureus. 5. Congestive heart failure. 6. Chronic obstructive pulmonary disease, on home O2. 7. Mild hyponatremia. 8. History of cerebrovascular accident. 9. History of chronic pain. 10. Anemia. Plan Plan of Care PICC BRUCE Dapto and po zyvox hydration BONNIE CANAAD MD Oct 18, 2020 10:39
[2020-10-18 10:49] VITALS: BP 117/68
--- NOTE | 2020-10-18 11:15 | NUR ---
routine consult for Tiffany for this patient. alicja Saleemied.
[2020-10-18] MEDS ORDERED: IV NORMAL SALINE 1000ML BAG 1,000 ML IV ONE (11:30)
[2020-10-18] MEDS: DAPTOmycin (GENERIC) IVPB 500 MG in IV NORMAL SALINE 50ML 50 ML IV SCH (11:42)
--- NOTE | 2020-10-18 12:09 | PDOC ---
Provider Note Date of Service: DATE: 10/18/20 TIME: 12:07 Provider Note This is a pleasant 65 yo female and noted with bacteremia MRSA and pneumonia. ID requested BRUCE to rule out endocarditis. Denies any chest pain or SOA. She typically sees Dr. Fregoso and just had an unremarkable stress test recently. BRUCE for tomorrow, risks and benefits discussed and agreeable to proceed. Justifications for Admission Other Justification Hypoxic respiratory failure LILLIAM BLACKMAN APRN Oct 18, 2020 12:09
[2020-10-18] MEDS ORDERED: VANCOMYCIN 1.5 GM in IV NORMAL SALINE 500ML BAG 500 ML IV SCH (13:00)
[2020-10-18] MEDS ORDERED: FLUCONAZOLE 100 MG TABLET. PO ONE (13:15)
[2020-10-18 14:59] VITALS: BP 127/65
--- NOTE | 2020-10-18 15:59 | NUR ---
Allergies and reactions apixaban, doxycycline,hydromorphone,phenytoin,pregabalin INR none BUN 18 Cr 1.7 Platelets 359 Blood culture done 10-16-20 blood culture results no growth yet Order Verified yes Consent signed yes Previous PICC placement yes Past Medical/Surgical history and current diagnosis reviewed yes Patient Medical /Surgical History Related to PICC line placement Infectious Disease consult Past central line or venous access device placement Problems breathing lying flat Septicemia/Bacteremia Special considerations for PICC line placement Infections PICC placement indication Caustic medication class drug usage, assisted antibiotic usage, Poor peripheral intravenous access Soledad Jacob RN PICC Nurse Addendum: 10/18/20 at 1625 by SOLEDAD JACOB RN Amended: Links added.
[2020-10-18] MEDS: LINEZOLID 600 MG TABLET PO SCH ×2 (16:00→20:59)
--- NOTE | 2020-10-18 16:23 | NUR ---
Procedure: Following complete explanation of the PICC procedure including the indications, risks, and potential complications, informed consent was obtained. The possibility for infection was discussed along with signs, symptoms, and prevention. All the questions were answered.yes Written and verbal patient education was provided. yes Hand hygiene performed. yes Standardized central line checklist was utilized. yes The patient was placed in the supine position, the arm was prepped with chlorhexidine and patient draped with maximum sterile barrier. 3 mL 1% lidocaine was infiltrated into the skin to provide local anesthesia. A thorough assessment of right upper extremity completed. Using real-time ultrasound guidance and standardized micro puncture set, the Basilic vein was punctured and a peel away sheath was placed using the modified Seldinger technique. A tip location device was used to ensure adequate catheter placement. The catheter was secured using a securement device and an antimicrobial patch was applied directly on the insertion site followed by a transparent dressing. All ports withdraw blood and flush without resistance. Patient tolerated the procedure without apparent complication(s). single Lumen Power PICC placement successful and uncomplicated. Placement verified by EKG tip confirmation system and/or chest x-ray. Tip located in the CAJ Complications: none Addendum: 10/18/20 at 1625 by KAVON ESCAMILLA RN Amended: Links added.
[2020-10-18 19:40] VITALS: BP 117/69
[2020-10-18] MEDS: MIRTAZAPINE 15 MG TABLET PO SCH (20:59)
[2020-10-18] MEDS: MONTELUKAST SODIUM 10 MG TABLET. PO SCH (20:59)
[2020-10-18] MEDS: OLANZapine 5 MG TABLET PO SCH (20:59)
[2020-10-18] MEDS: ATORVASTATIN CALCIUM 20 MG TABLET PO SCH (20:59)
[2020-10-18] MEDS: LACTOBACILLUS RHAMNOSUS GG 1 CAPSULE. PO SCH (20:59)
[2020-10-18] MEDS: tiZANidine 4 MG TABLET. PO PRN (22:11)
[2020-10-18 23:50] VITALS: BP 112/68
[2020-10-19 03:27] VITALS: BP 85/56
[2020-10-19 07:00] VITALS: BP 107/67
[2020-10-19] MEDS ORDERED: IV RINGERS,LACTATED 1000ML 1,000 ML IV SCH (07:00)
[2020-10-19 07:35] LABS: BASO % 0 % (0-3); EOS # 0.1 x10^3/uL (0.0-0.7); EOS % 2 % (0-3); HEMATOCRIT 33.3 % (36.0-47.0); LYMPH # 2.8 x10^3/uL (1.0-4.8); LYMPH % 50 % (24-48); MEAN CORPUSCULAR HEMOGLOBIN 31 pg (25-35); MEAN CORPUSCULAR HGB CONC 33 g/dL (31-37); MEAN CORPUSCULAR VOLUME 94 fL (79-100); MONO # 0.3 x10^3/uL (0.0-1.1); MONO % 6 % (0-9); NEUT # 2.4 x10^3/uL (1.8-7.7); NEUT % 42 % (31-73); PLATELET COUNT 254 x10^3/uL (140-400); RED BLOOD COUNT 3.54 x10^6/uL (3.50-5.40); RED CELL DISTRIBUTION WIDTH 13.8 % (11.5-14.5); WHITE BLOOD COUNT 5.6 x10^3/uL (4.0-11.0)
[2020-10-19 07:52] LABS: CALCIUM 8.4 mg/dL (8.5-10.1); CREATININE 1.3 mg/dL (0.6-1.0); GFR 41.4; POTASSIUM 4.1 mmol/L (3.5-5.1)
[2020-10-19] MEDS ORDERED: LIDOCAINE 2% TOPICAL JELLY 30GM TUBE. TP ONE (08:00)
[2020-10-19] MEDS ORDERED: BENZOCAINE ONE 20% MUCOSAL SPRAY. MM (08:00)
[2020-10-19] MEDS ORDERED: LIDOCAINE 2% VISCOUS 15 ML SOLUTION. SWSW ONE (08:00)
[2020-10-19] MEDS: INSULIN LISPRO 300 UNITS/3 ML VIAL. SQ SCH ×3 (08:00→17:00)
--- NOTE | 2020-10-19 09:49 | PDOC ---
Infectious Disease Note Subjective Subjective pt is feeling good ROS ROS no n/v/d/sob Vital Sign Vital Signs Vital Signs Date Time Temp Pulse Resp B/P (MAP) Pulse Ox O2 Delivery O2 Flow Rate FiO2 10/19/20 07:00 97.5 68 18 107/67 (80) 100 Nasal Cannula 2.0 97.5 Physical Exam PHYSICAL EXAM GENERAL: Alert, 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 female, appears comfortable, nontoxic appearing, lying in bed comfortably, in no acute distress. HEENT: Normocephalic, atraumatic. Anicteric. Oral mucosa is moist. NECK: Supple. LUNGS: Decreased breath sounds at the bases. HEART: S1, S2. No gallops or murmurs. ABDOMEN: Soft, nontender, nondistended. Ileostomy in place. Ileostomy without signs of complications. EXTREMITIES: No edema, no cyanosis. DERMATOLOGIC: Warm, dry. No generalized rash. NEUROLOGIC: Alert, 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. Grossly nonfocal. PSYCHIATRIC: Calm and cooperative. Labs Lab Laboratory Tests Test 10/18/20 11:34 10/18/20 16:39 10/18/20 20:21 10/19/20 06:30 Glucose (Fingerstick) 92 mg/dL (70-99) 101 mg/dL (70-99) 127 mg/dL (70-99) White Blood Count 5.6 x10^3/uL (4.0-11.0) Red Blood Count 3.54 x10^6/uL (3.50-5.40) Hemoglobin 11.0 g/dL (12.0-15.5) Hematocrit 33.3 % (36.0-47.0) Mean Corpuscular Volume 94 fL (79-100) Mean Corpuscular Hemoglobin 31 pg (25-35) Mean Corpuscular Hemoglobin Concent 33 g/dL (31-37) Red Cell Distribution Width 13.8 % (11.5-14.5) Platelet Count 254 x10^3/uL (140-400) Neutrophils (%) (Auto) 42 % (31-73) Lymphocytes (%) (Auto) 50 % (24-48) Monocytes (%) (Auto) 6 % (0-9) Eosinophils (%) (Auto) 2 % (0-3) Basophils (%) (Auto) 0 % (0-3) Neutrophils # (Auto) 2.4 x10^3/uL (1.8-7.7) Lymphocytes # (Auto) 2.8 x10^3/uL (1.0-4.8) Monocytes # (Auto) 0.3 x10^3/uL (0.0-1.1) Eosinophils # (Auto) 0.1 x10^3/uL (0.0-0.7) Basophils # (Auto) 0.0 x10^3/uL (0.0-0.2) Sodium Level 137 mmol/L (136-145) Potassium Level 4.1 mmol/L (3.5-5.1) Chloride Level 102 mmol/L (98-107) Carbon Dioxide Level 25 mmol/L (21-32) Anion Gap 10 (6-14) Blood Urea Nitrogen 14 mg/dL (7-20) Creatinine 1.3 mg/dL (0.6-1.0) Estimated GFR (Cockcroft-Gault) 41.4 Glucose Level 102 mg/dL (70-99) Calcium Level 8.4 mg/dL (8.5-10.1) Creatine Kinase 71 U/L (26-192) Test 10/19/20 07:39 Glucose (Fingerstick) 93 mg/dL (70-99) Micro BC + MRSA 10/09 Sputum MRSA BC neg 10/12 and 10/16 Objective Assessment IMPRESSION: 1. Sepsis from Gram-positive bacteremia. 2. Staphylococcus aureus bacteremia, MRSA 3. Leukocytosis. 4. Pneumonia, Staph aureus. 5. Congestive heart failure. 6. Chronic obstructive pulmonary disease, on home O2. 7. Mild hyponatremia. 8. History of cerebrovascular accident. 9. History of chronic pain. 10. Anemia. Plan Plan of Care PICC BRUCE Dapto and po zyvox hydration BONNIE CANADA MD Oct 19, 2020 09:49
[2020-10-19] MEDS: LACTOBACILLUS RHAMNOSUS GG 1 CAPSULE. PO SCH ×2 (10:10→20:58)
[2020-10-19] MEDS: GABAPENTIN 300 MG CAPSULE. PO SCH ×3 (10:10→20:59)
[2020-10-19] MEDS: FUROSEMIDE 40 MG TABLET. PO SCH ×2 (10:11→15:41)
[2020-10-19] MEDS: LINEZOLID 600 MG TABLET PO SCH ×2 (10:11→20:59)
[2020-10-19] MEDS: HYDROcodone/APAP 7.5/325MG 1 TAB TABLET PO PRN ×3 (10:11→22:11)
[2020-10-19] MEDS: PANTOPRAZOLE 40 MG TABLET.DR. PO SCH (10:11)
[2020-10-19] MEDS: ASPIRIN 325 MG TABLET PO SCH (10:12)
[2020-10-19] MEDS: LEVOTHYROXINE 125 MCG TABLET PO SCH (10:12)
[2020-10-19] MEDS: busPIRone 10 MG TABLET. PO SCH ×2 (10:12→20:59)
[2020-10-19 11:00] VITALS: BP 120/85
[2020-10-19] MEDS: DAPTOmycin (GENERIC) IVPB 500 MG in IV NORMAL SALINE 50ML 50 ML IV SCH (12:48)
--- NOTE | 2020-10-19 13:07 | NUR ---
SW following. Discussed with RN, pt from home alone. Plans for BRUCE tomorrow (10/20/20). SW will continue to follow.
--- NOTE | 2020-10-19 14:18 | PDOC ---
[facility] PROGRESS NOTE Date of Service DOS: DATE: 10/19/20 TIME: 14:13 Chief Complaint Chief Complaint A/P: Acute hypoxic respiratory failure, acute bronchitis in COPD patient - aggressive nebs. Bilateral lower lobe CAP - vancomycin. Will add zosyn. Consult ID given prior ceftaroline infusion due to MRSA bacteremia MRSA bacteremia - incomplete treatment, went home on zyvox. Cont vancomycin. Consult ID, f/u repeat blood cultures. 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, with prior illness CHF COPD Chronic back pain - spine stimulator in place H/o Stroke FEN - Cardiac diet PPX - heparin FULL CODE Dispo - inpatient History of Present Illness History of Present Illness Ms Ann is a 65-year female with a history of COPD, chronic diastolic CHF, CAD s/p CASIE, short gut syndrome with ileostomy in place, chronic back pain with spinal stimulator in place who was recently admitted to the hospital for pneumonia and MRSA bacteremia who left AMA returns on 10/16/2020 overnight c/o worsening shortness breath and general weakness, she denies chest pain, no fevers or chills. She does note vaginitis and worsening of her chronic lower back pain and now has pain a bit higher. Denies any headache, no neck stiffness or photophobia, cough and wheezing but this is nonproductive, no hemoptysis or night sweats, no leg pain or leg swelling. EKG sinus tachycardia rate of 115 bpm QTC 461 Chest radiograph with interstitial infiltrate improved from prior. Labs WBC 14.5, Hb 13.47, NA 133, K4.4, BUN 11, CR 1.4, glucose 171 BNP 700, troponin 0 Admitted for further care 10/19: Afebrile. Pain reasonably controlled but she is complaining of a yeast infection despite having p.o. fluconazole. Plan for PICC and BRUCE after discussion with infectious diseases. Afebrile. Pain controlled has her spine stimulator battery in place now. Still complaining of vaginal stain for yeast infection despite oral fluconazole after vaginal treatment she is amenable to this. Right upper extremity PICC placed without complications. Plan for BRUCE tentatively 10/20/2020. Vitals/I&O Vitals/I&O: Vital Signs Date Time Temp Pulse Resp B/P (MAP) Pulse Ox O2 Delivery O2 Flow Rate FiO2 10/19/20 11:00 97.5 74 18 120/85 (97) 96 Nasal Cannula 2.0 97.5 I & O 10/18/20 10/18/20 10/19/20 15:00 23:00 07:00 Intake Total 500 ml 834 ml 300 ml Balance 500 ml 834 ml 300 ml Physical Exam Physical Exam: GENERAL: Alert, 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 female, appears comfortable, nontoxic appearing, lying in bed comfortably, in no acute distress. HEENT: Normocephalic, atraumatic. Anicteric. Oral mucosa is moist. NECK: Supple. LUNGS: Decreased breath sounds at the bases. HEART: S1, S2. No gallops or murmurs. ABDOMEN: Soft, nontender, nondistended. Ileostomy in place. Ileostomy without signs of complications. EXTREMITIES: No edema, no cyanosis. DERMATOLOGIC: Warm, dry. No generalized rash. NEUROLOGIC: Alert, 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. Grossly nonfocal. PSYCHIATRIC: Calm and cooperative. General: Alert, Oriented X3, Cooperative, moderate distress Lungs: Other Abdomen: Normal bowel sounds, Soft, No tenderness, No hepatosplenomegaly, No masses Extremities: No clubbing, No cyanosis, No edema, Normal pulses, No tenderness/swelling Skin: No rashes, No breakdown, No significant lesion Labs Labs: Laboratory Tests Test 10/18/20 16:39 10/18/20 20:21 10/19/20 06:30 10/19/20 07:39 Glucose (Fingerstick) 101 mg/dL (70-99) 127 mg/dL (70-99) 93 mg/dL (70-99) White Blood Count 5.6 x10^3/uL (4.0-11.0) Red Blood Count 3.54 x10^6/uL (3.50-5.40) Hemoglobin 11.0 g/dL (12.0-15.5) Hematocrit 33.3 % (36.0-47.0) Mean Corpuscular Volume 94 fL (79-100) Mean Corpuscular Hemoglobin 31 pg (25-35) Mean Corpuscular Hemoglobin Concent 33 g/dL (31-37) Red Cell Distribution Width 13.8 % (11.5-14.5) Platelet Count 254 x10^3/uL (140-400) Neutrophils (%) (Auto) 42 % (31-73) Lymphocytes (%) (Auto) 50 % (24-48) Monocytes (%) (Auto) 6 % (0-9) Eosinophils (%) (Auto) 2 % (0-3) Basophils (%) (Auto) 0 % (0-3) Neutrophils # (Auto) 2.4 x10^3/uL (1.8-7.7) Lymphocytes # (Auto) 2.8 x10^3/uL (1.0-4.8) Monocytes # (Auto) 0.3 x10^3/uL (0.0-1.1) Eosinophils # (Auto) 0.1 x10^3/uL (0.0-0.7) Basophils # (Auto) 0.0 x10^3/uL (0.0-0.2) Sodium Level 137 mmol/L (136-145) Potassium Level 4.1 mmol/L (3.5-5.1) Chloride Level 102 mmol/L (98-107) Carbon Dioxide Level 25 mmol/L (21-32) Anion Gap 10 (6-14) Blood Urea Nitrogen 14 mg/dL (7-20) Creatinine 1.3 mg/dL (0.6-1.0) Estimated GFR (Cockcroft-Gault) 41.4 Glucose Level 102 mg/dL (70-99) Calcium Level 8.4 mg/dL (8.5-10.1) Creatine Kinase 71 U/L (26-192) Test 10/19/20 11:33 Glucose (Fingerstick) 101 mg/dL (70-99) Assessment and Plan Assessmemt and Plan Problems Medical Problems: (1) Pneumonia Status: Acute Comment Review of Relevant I have reviewed the following items chris (where applicable) has been applied. Medications: Current Medications Medications (Trade) Dose Ordered Sig/Joel Route PRN Reason Start Time Stop Time Status Last Admin Dose Admin Lactobacillus Rhamnosus (Culturelle) 1 cap BID PO 10/18/20 21:00 10/19/20 10:10 Justifications for Admission Other Justification Hypoxic respiratory failure DAVE WHITLEY MD Oct 19, 2020 14:18
--- NOTE | 2020-10-19 14:26 | NUR ---
BRUCE was rescheduled.
[2020-10-19] MEDS ORDERED: FLUCONAZOLE 100 MG TABLET. PO ONE (14:30)
[2020-10-19 15:00] VITALS: BP 129/76
[2020-10-19] MEDS: FLUTICASONE 50MCG/NASAL SPRAY 16GM BOTTLE. NS SCH (15:40)
[2020-10-19 19:41] VITALS: BP 128/83
[2020-10-19] MEDS: IPRATRPIUM/ALBUTEROL 0.5/2.5MG 3 ML NEBU. NEB SCH (20:00)
[2020-10-19] MEDS: BUDESONIDE 0.5 MG/2 ML NEBU. NEB SCH (20:00)
[2020-10-19] MEDS: MIRTAZAPINE 15 MG TABLET PO SCH (20:59)
[2020-10-19] MEDS: MONTELUKAST SODIUM 10 MG TABLET. PO SCH (20:59)
[2020-10-19] MEDS: OLANZapine 5 MG TABLET PO SCH (20:59)
[2020-10-19] MEDS: tiZANidine 4 MG TABLET. PO PRN (20:59)
[2020-10-19] MEDS: ATORVASTATIN CALCIUM 20 MG TABLET PO SCH (20:59)
[2020-10-19] MEDS: CLOTRIMAZOLE 1% VAGINAL CREAM 45GM TUBE. VG SCH (21:00)
[2020-10-19 23:12] VITALS: BP 98/65
[2020-10-20] MEDS ORDERED: IV RINGERS,LACTATED 1000ML 1,000 ML IV SCH (06:00)
[2020-10-20] MEDS: BUDESONIDE 0.5 MG/2 ML NEBU. NEB SCH ×2 (07:33→18:08)
[2020-10-20] MEDS: IPRATRPIUM/ALBUTEROL 0.5/2.5MG 3 ML NEBU. NEB SCH ×4 (07:33→18:07)
[2020-10-20] MEDS: INSULIN LISPRO 300 UNITS/3 ML VIAL. SQ SCH ×3 (08:00→17:00)
[2020-10-20 08:10] VITALS: BP 108/75
--- NOTE | 2020-10-20 08:42 | PDOC ---
[employer] [facility] PROGRESS NOTE Date of Service DOS: DATE: 10/20/20 TIME: 08:30 Chief Complaint Chief Complaint A/P: Acute hypoxic respiratory failure, acute bronchitis in COPD patient - aggressive nebs. Bilateral lower lobe CAP - Consulted ID given prior ceftaroline infusion due to MRSA bacteremia. Now on daptomycin and zyvox MRSA bacteremia - incomplete treatment, went home on zyvox. Cont daptomycin. Consulted ID, f/u repeat blood cultures. 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, with prior illness CHF COPD Chronic back pain - spine stimulator in place H/o Stroke FEN - Cardiac diet PPX - heparin FULL CODE Dispo - inpatient History of Present Illness History of Present Illness Ms Ann is a 65-year female with a history of COPD, chronic diastolic CHF, CAD s/p CASIE, short gut syndrome with ileostomy in place, chronic back pain with spinal stimulator in place who was recently admitted to the hospital for pneumonia and MRSA bacteremia who left AMA returns on 10/16/2020 overnight c/o worsening shortness breath and general weakness, she denies chest pain, no fevers or chills. She does note vaginitis and worsening of her chronic lower back pain and now has pain a bit higher. Denies any headache, no neck stiffness or photophobia, cough and wheezing but this is nonproductive, no hemoptysis or night sweats, no leg pain or leg swelling. EKG sinus tachycardia rate of 115 bpm QTC 461 Chest radiograph with interstitial infiltrate improved from prior. Labs WBC 14.5, Hb 13.47, NA 133, K4.4, BUN 11, CR 1.4, glucose 171 BNP 700, troponin 0 Admitted for further care 10/18: Afebrile. Pain reasonably controlled but she is complaining of a yeast infection despite having p.o. fluconazole. Plan for PICC and BRUCE after discussion with infectious diseases. 10/19: Afebrile. Pain controlled has her spine stimulator battery in place now. Vaginitis despite oral fluconazole. Right upper extremity PICC placed without complications. Plan for BRUCE Afebrile overnight. Pain is controlled. No further vaginitis after treatment. BP is on the low side still requiring O2. Good ostomy output. No problem with straight cath. N.p.o. for likely BRUCE today Vitals/I&O Vitals/I&O: Vital Signs Date Time Temp Pulse Resp B/P (MAP) Pulse Ox O2 Delivery O2 Flow Rate FiO2 10/20/20 07:34 98 Nasal Cannula 2.0 10/20/20 03:59 20 10/19/20 23:12 97.3 76 98/65 (76) 97.3 I & O 10/19/20 10/19/20 10/20/20 15:00 23:00 07:00 Intake Total 400 ml Balance 400 ml Physical Exam Physical Exam: GENERAL: Alert, 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 female, appears comfortable, nontoxic appearing, lying in bed comfortably, in no acute distress. HEENT: Normocephalic, atraumatic. Anicteric. Oral mucosa is moist. NECK: Supple. LUNGS: Decreased breath sounds at the bases. HEART: S1, S2. No gallops or murmurs. ABDOMEN: Soft, nontender, nondistended. Ileostomy in place. Ileostomy without signs of complications. EXTREMITIES: No edema, no cyanosis. DERMATOLOGIC: Warm, dry. No generalized rash. NEUROLOGIC: Alert, 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. Grossly nonfocal. PSYCHIATRIC: Calm and cooperative. General: Alert, Oriented X3, Cooperative, moderate distress Lungs: Other Abdomen: Normal bowel sounds, Soft, No tenderness, No hepatosplenomegaly, No masses Extremities: No clubbing, No cyanosis, No edema, Normal pulses, No tenderness/swelling Skin: No rashes, No breakdown, No significant lesion Labs Labs: Laboratory Tests Test 10/19/20 11:33 10/19/20 20:22 10/20/20 08:16 Glucose (Fingerstick) 101 mg/dL (70-99) 129 mg/dL (70-99) 100 mg/dL (70-99) Assessment and Plan Assessmemt and Plan Problems Medical Problems: (1) Pneumonia Status: Acute Comment Review of Relevant I have reviewed the following items chris (where applicable) has been applied. Medications: Current Medications Medications (Trade) Dose Ordered Sig/Joel Route PRN Reason Start Time Stop Time Status Last Admin Dose Admin Fluconazole (Diflucan) 150 mg 1X ONCE PO 10/19/20 14:30 10/19/20 14:31 DC 10/19/20 15:41 Clotrimazole (Mycelex-7) 1 abner HS VG 10/19/20 21:00 10/26/20 20:59 10/19/20 21:00 Justifications for Admission Other Justification Hypoxic respiratory failure DAVE WHITLEY MD Oct 20, 2020 08:42
--- NOTE | 2020-10-20 09:11 | PDOC ---
Infectious Disease Note Subjective Subjective pt is feeling good ROS ROS no n/v/d/ Vital Sign Vital Signs Vital Signs Date Time Temp Pulse Resp B/P (MAP) Pulse Ox O2 Delivery O2 Flow Rate FiO2 10/20/20 08:10 97.7 86 20 108/75 (86) 96 Nasal Cannula 2.0 97.7 Physical Exam PHYSICAL EXAM GENERAL: Alert, 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 female, appears comfortable, nontoxic appearing, lying in bed comfortably, in no acute distress. HEENT: Normocephalic, atraumatic. Anicteric. Oral mucosa is moist. NECK: Supple. LUNGS: Decreased breath sounds at the bases. HEART: S1, S2. No gallops or murmurs. ABDOMEN: Soft, nontender, nondistended. Ileostomy in place. Ileostomy without signs of complications. EXTREMITIES: No edema, no cyanosis. DERMATOLOGIC: Warm, dry. No generalized rash. NEUROLOGIC: Alert, 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. Grossly nonfocal. PSYCHIATRIC: Calm and cooperative. Labs Lab Laboratory Tests Test 10/19/20 11:33 10/19/20 20:22 10/20/20 08:16 Glucose (Fingerstick) 101 mg/dL (70-99) 129 mg/dL (70-99) 100 mg/dL (70-99) Micro BC + MRSA 10/09 Sputum MRSA BC neg 10/12 and 10/16 Objective Assessment IMPRESSION: 1. Sepsis from Gram-positive bacteremia. 2. Staphylococcus aureus bacteremia, MRSA 3. Leukocytosis. 4. Pneumonia, Staph aureus. 5. Congestive heart failure. 6. Chronic obstructive pulmonary disease, on home O2. 7. Mild hyponatremia. 8. History of cerebrovascular accident. 9. History of chronic pain. 10. Anemia. Plan Plan of Care PICC BRUCE Dapto and po zyvox hydration BONNIE CANADA MD Oct 20, 2020 09:11
[2020-10-20] MEDS: FLUTICASONE 50MCG/NASAL SPRAY 16GM BOTTLE. NS SCH (09:27)
[2020-10-20] MEDS ORDERED: BENZOCAINE ONE 20% MUCOSAL SPRAY. (10:02)
[2020-10-20] MEDS ORDERED: LIDOCAINE 2% TOPICAL JELLY 30GM TUBE. TP ONE ×2 (10:02→12:30)
[2020-10-20] MEDS ORDERED: LIDOCAINE 2% VISCOUS 15 ML SOLUTION. ONE (10:02)
[2020-10-20] MEDS ORDERED: PROPOFOL 10 MG/ML (20ML) VIAL. IV ONE (11:40)
[2020-10-20] MEDS ORDERED: LIDOCAINE 2% PF 5 ML VIAL. ONE (11:40)
[2020-10-20 12:15] VITALS: BP 142/79
[2020-10-20] MEDS ORDERED: LIDOCAINE 2% JELLY 6ML IN APPLICATOR. MM ONE (12:15)
[2020-10-20] MEDS ORDERED: BENZOCAINE ONE 20% MUCOSAL SPRAY. MM (12:15)
[2020-10-20] MEDS ORDERED: fentaNYL PF VIAL 100 MCG/2 ML VIAL ONE (12:33)
[2020-10-20] MEDS: LEVOTHYROXINE 125 MCG TABLET PO SCH (12:40)
[2020-10-20] MEDS: LACTOBACILLUS RHAMNOSUS GG 1 CAPSULE. PO SCH ×2 (12:40→20:58)
[2020-10-20] MEDS: FUROSEMIDE 40 MG TABLET. PO SCH ×2 (12:40→14:48)
[2020-10-20] MEDS: busPIRone 10 MG TABLET. PO SCH ×2 (12:40→20:57)
[2020-10-20] MEDS: PANTOPRAZOLE 40 MG TABLET.DR. PO SCH (12:40)
[2020-10-20] MEDS: ASPIRIN 325 MG TABLET PO SCH (12:40)
[2020-10-20] MEDS: GABAPENTIN 300 MG CAPSULE. PO SCH ×3 (12:40→20:58)
[2020-10-20] MEDS: LINEZOLID 600 MG TABLET PO SCH ×2 (12:41→20:58)
[2020-10-20] MEDS: DAPTOmycin (GENERIC) IVPB 500 MG in IV NORMAL SALINE 50ML 50 ML IV SCH (12:43)
[2020-10-20] MEDS: HYDROcodone/APAP 7.5/325MG 1 TAB TABLET PO PRN ×2 (12:48→20:58)
--- NOTE | 2020-10-20 12:53 | NUR ---
SW following. Discussed with RN, pt had BRUCE scheduled at 11am today. RN advised no SW needs at this time. SW will continue to follow.
[2020-10-20] MEDS: ONDANSETRON PF 4 MG/2 ML VIAL. IVP PRN ×2 (14:54→20:58)
[2020-10-20 15:45] VITALS: BP 124/73
[2020-10-20 19:00] VITALS: BP 110/75
[2020-10-20] MEDS: MIRTAZAPINE 15 MG TABLET PO SCH (20:57)
[2020-10-20] MEDS: OLANZapine 5 MG TABLET PO SCH (20:57)
[2020-10-20] MEDS: MONTELUKAST SODIUM 10 MG TABLET. PO SCH (20:58)
[2020-10-20] MEDS: ATORVASTATIN CALCIUM 20 MG TABLET PO SCH (20:58)
[2020-10-20] MEDS: CLOTRIMAZOLE 1% VAGINAL CREAM 45GM TUBE. VG SCH (21:00)
[2020-10-20 23:07] VITALS: BP 127/81
[2020-10-21 02:50] VITALS: BP 113/68
[2020-10-21] MEDS: HYDROcodone/APAP 7.5/325MG 1 TAB TABLET PO PRN ×3 (05:05→21:50)
[2020-10-21 05:37] LABS: CALCIUM 8.8 mg/dL (8.5-10.1); CREATININE 1.3 mg/dL (0.6-1.0); GFR 41.4; POTASSIUM 3.6 mmol/L (3.5-5.1)
[2020-10-21] MEDS: BUDESONIDE 0.5 MG/2 ML NEBU. NEB SCH ×2 (06:09→20:25)
[2020-10-21] MEDS: IPRATRPIUM/ALBUTEROL 0.5/2.5MG 3 ML NEBU. NEB SCH ×4 (06:09→20:25)
[2020-10-21 07:00] VITALS: BP 117/75
[2020-10-21] MEDS: INSULIN LISPRO 300 UNITS/3 ML VIAL. SQ SCH ×3 (07:28→16:53)
[2020-10-21] MEDS: LEVOTHYROXINE 125 MCG TABLET PO SCH (07:55)
[2020-10-21] MEDS: PANTOPRAZOLE 40 MG TABLET.DR. PO SCH (07:55)
--- NOTE | 2020-10-21 08:03 | PDOC ---
Infectious Disease Note Subjective Subjective pt is feeling good ROS ROS No complaints no nausea vomiting diarrhea fever chills shortness of breath Vital Sign Vital Signs Vital Signs Date Time Temp Pulse Resp B/P (MAP) Pulse Ox O2 Delivery O2 Flow Rate FiO2 10/21/20 06:10 98 Nasal Cannula 2.0 10/21/20 05:35 19 10/21/20 02:50 97.7 86 113/68 (83) 97.7 Physical Exam PHYSICAL EXAM GENERAL: Alert, 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 female, appears comfortable, nontoxic appearing, lying in bed comfortably, in no acute distress. HEENT: Normocephalic, atraumatic. Anicteric. Oral mucosa is moist. NECK: Supple. LUNGS: Decreased breath sounds at the bases. HEART: S1, S2. No gallops or murmurs. ABDOMEN: Soft, nontender, nondistended. Ileostomy in place. Ileostomy without signs of complications. EXTREMITIES: No edema, no cyanosis. DERMATOLOGIC: Warm, dry. No generalized rash. NEUROLOGIC: Alert, 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. Grossly nonfocal. PSYCHIATRIC: Calm and cooperative. Labs Lab Laboratory Tests Test 10/20/20 08:16 10/20/20 12:23 10/20/20 17:40 10/20/20 19:11 Glucose (Fingerstick) 100 mg/dL (70-99) 86 mg/dL (70-99) 149 mg/dL (70-99) 147 mg/dL (70-99) Test 10/21/20 05:00 10/21/20 07:21 Sodium Level 140 mmol/L (136-145) Potassium Level 3.6 mmol/L (3.5-5.1) Chloride Level 102 mmol/L (98-107) Carbon Dioxide Level 28 mmol/L (21-32) Anion Gap 10 (6-14) Blood Urea Nitrogen 9 mg/dL (7-20) Creatinine 1.3 mg/dL (0.6-1.0) Estimated GFR (Cockcroft-Gault) 41.4 Glucose Level 107 mg/dL (70-99) Calcium Level 8.8 mg/dL (8.5-10.1) Glucose (Fingerstick) 114 mg/dL (70-99) Micro BC + MRSA 10/09 Sputum MRSA BC neg 10/12 and 10/16 Objective Assessment IMPRESSION: 1. Sepsis from Gram-positive bacteremia. 2. Staphylococcus aureus bacteremia, MRSA 3. Leukocytosis. 4. Pneumonia, Staph aureus. 5. Congestive heart failure. 6. Chronic obstructive pulmonary disease, on home O2. 7. Mild hyponatremia. 8. History of cerebrovascular accident. 9. History of chronic pain. 10. Anemia. Plan Plan of Care PICC BRUCE negative Okay to discharge on IV Dapto for total 4 weeks Weekly CBC BUN/creatinine CPK Follow-up with me in 2 weeks BONNIE CANADA MD Oct 21, 2020 08:03
[2020-10-21] MEDS: FLUTICASONE 50MCG/NASAL SPRAY 16GM BOTTLE. NS SCH (09:00)
[2020-10-21] MEDS: LINEZOLID 600 MG TABLET PO SCH ×2 (10:24→21:50)
[2020-10-21] MEDS: FUROSEMIDE 40 MG TABLET. PO SCH ×2 (10:25→14:56)
[2020-10-21] MEDS: busPIRone 10 MG TABLET. PO SCH ×2 (10:25→21:48)
[2020-10-21] MEDS: ASPIRIN 325 MG TABLET PO SCH (10:25)
[2020-10-21] MEDS: LACTOBACILLUS RHAMNOSUS GG 1 CAPSULE. PO SCH ×2 (10:25→21:49)
[2020-10-21] MEDS: GABAPENTIN 300 MG CAPSULE. PO SCH ×3 (10:25→21:49)
[2020-10-21 11:00] VITALS: BP 110/67
[2020-10-21] MEDS: DAPTOmycin (GENERIC) IVPB 500 MG in IV NORMAL SALINE 50ML 50 ML IV SCH (11:31)
[2020-10-21 12:56] LABS: BASO % 1 % (0-3); EOS # 0.1 x10^3/uL (0.0-0.7); EOS % 2 % (0-3); HEMATOCRIT 33.8 % (36.0-47.0); HEMOGLOBIN 11.3 g/dL (12.0-15.5); LYMPH # 2.6 x10^3/uL (1.0-4.8); LYMPH % 46 % (24-48); MEAN CORPUSCULAR HEMOGLOBIN 32 pg (25-35); MEAN CORPUSCULAR HGB CONC 34 g/dL (31-37); MEAN CORPUSCULAR VOLUME 94 fL (79-100); MONO # 0.4 x10^3/uL (0.0-1.1); MONO % 7 % (0-9); NEUT # 2.5 x10^3/uL (1.8-7.7); NEUT % 44 % (31-73); PLATELET COUNT 252 x10^3/uL (140-400); RED BLOOD COUNT 3.59 x10^6/uL (3.50-5.40); RED CELL DISTRIBUTION WIDTH 13.6 % (11.5-14.5); WHITE BLOOD COUNT 5.7 x10^3/uL (4.0-11.0)
[2020-10-21 15:00] VITALS: BP 138/67
--- NOTE | 2020-10-21 16:10 | PDOC ---
[employer] PROGRESS NOTE Date of Service DOS: DATE: 10/21/20 TIME: 16:06 Chief Complaint Chief Complaint A/P: Acute hypoxic respiratory failure, acute bronchitis in COPD patient - aggressive nebs. Bilateral lower lobe CAP - Consulted ID given prior ceftaroline infusion due to MRSA bacteremia. Now on daptomycin and zyvox MRSA bacteremia - incomplete treatment, went home on zyvox. Cont daptomycin. Consulted ID, f/u repeat blood cultures. 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, with prior illness CHF COPD Chronic back pain - spine stimulator in place H/o Stroke FEN - Cardiac diet PPX - heparin FULL CODE Dispo - inpatient History of Present Illness History of Present Illness Ms Ann is a 65-year female with a history of COPD, chronic diastolic CHF, CAD s/p CASIE, short gut syndrome with ileostomy in place, chronic back pain with spinal stimulator in place who was recently admitted to the hospital for pneumonia and MRSA bacteremia who left AMA returns on 10/16/2020 overnight c/o worsening shortness breath and general weakness, she denies chest pain, no fevers or chills. She does note vaginitis and worsening of her chronic lower back pain and now has pain a bit higher. Denies any headache, no neck stiffness or photophobia, cough and wheezing but this is nonproductive, no hemoptysis or night sweats, no leg pain or leg swelling. EKG sinus tachycardia rate of 115 bpm QTC 461 Chest radiograph with interstitial infiltrate improved from prior. Labs WBC 14.5, Hb 13.47, NA 133, K4.4, BUN 11, CR 1.4, glucose 171 BNP 700, troponin 0 Admitted for further care 10/18: Afebrile. Pain reasonably controlled but she is complaining of a yeast infection despite having p.o. fluconazole. Plan for PICC and BRUCE after discussion with infectious diseases. 10/19: Afebrile. Pain controlled has her spine stimulator battery in place now. Vaginitis despite oral fluconazole. Right upper extremity PICC placed without complications. Plan for BRUCE 10/20: Afebrile overnight. Pain is controlled. No further vaginitis after treatment. BP is on the low side still requiring O2. Good ostomy output. No problem with straight cath. N.p.o. for likely BRUCE today. 10/21: Afebrile. I have not seen BRUCE results, but patient and RN report to me that her BRUCE was normal. Will verify BRUCE result and plan to discharge home with IV daptomycin for total of 4 weeks, with ID follow-up. Vitals/I&O Vitals/I&O: Vital Signs Date Time Temp Pulse Resp B/P (MAP) Pulse Ox O2 Delivery O2 Flow Rate FiO2 10/21/20 15:28 98 Nasal Cannula 2.0 10/21/20 11:00 98.0 83 16 110/67 (81) 98.0 I & O 10/20/20 10/20/20 10/21/20 15:00 23:00 07:00 Intake Total 350 ml 350 ml 500 ml Balance 350 ml 350 ml 500 ml Physical Exam Physical Exam: GENERAL: Alert, 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 female, appears comfortable, nontoxic appearing, lying in bed comfortably, in no acute distress. HEENT: Normocephalic, atraumatic. Anicteric. Oral mucosa is moist. NECK: Supple. LUNGS: Decreased breath sounds at the bases. HEART: S1, S2. No gallops or murmurs. ABDOMEN: Soft, nontender, nondistended. Ileostomy in place. Ileostomy without signs of complications. EXTREMITIES: No edema, no cyanosis. DERMATOLOGIC: Warm, dry. No generalized rash. NEUROLOGIC: Alert, 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. Grossly nonfocal. PSYCHIATRIC: Calm and cooperative. General: Alert, Oriented X3, Cooperative, moderate distress Heart: Regular rate Lungs: Other (Decreased breath sounds bilaterally) Abdomen: Normal bowel sounds, Soft, No tenderness, No hepatosplenomegaly, No masses Extremities: No clubbing, No cyanosis, No edema, Normal pulses, No tenderness/swelling Skin: No rashes, No breakdown, No significant lesion Labs Labs: Laboratory Tests Test 10/20/20 17:40 10/20/20 19:11 10/21/20 05:00 10/21/20 07:21 Glucose (Fingerstick) 149 mg/dL (70-99) 147 mg/dL (70-99) 114 mg/dL (70-99) White Blood Count 5.7 x10^3/uL (4.0-11.0) Red Blood Count 3.59 x10^6/uL (3.50-5.40) Hemoglobin 11.3 g/dL (12.0-15.5) Hematocrit 33.8 % (36.0-47.0) Mean Corpuscular Volume 94 fL (79-100) Mean Corpuscular Hemoglobin 32 pg (25-35) Mean Corpuscular Hemoglobin Concent 34 g/dL (31-37) Red Cell Distribution Width 13.6 % (11.5-14.5) Platelet Count 252 x10^3/uL (140-400) Neutrophils (%) (Auto) 44 % (31-73) Lymphocytes (%) (Auto) 46 % (24-48) Monocytes (%) (Auto) 7 % (0-9) Eosinophils (%) (Auto) 2 % (0-3) Basophils (%) (Auto) 1 % (0-3) Neutrophils # (Auto) 2.5 x10^3/uL (1.8-7.7) Lymphocytes # (Auto) 2.6 x10^3/uL (1.0-4.8) Monocytes # (Auto) 0.4 x10^3/uL (0.0-1.1) Eosinophils # (Auto) 0.1 x10^3/uL (0.0-0.7) Basophils # (Auto) 0.0 x10^3/uL (0.0-0.2) Sodium Level 140 mmol/L (136-145) Potassium Level 3.6 mmol/L (3.5-5.1) Chloride Level 102 mmol/L (98-107) Carbon Dioxide Level 28 mmol/L (21-32) Anion Gap 10 (6-14) Blood Urea Nitrogen 9 mg/dL (7-20) Creatinine 1.3 mg/dL (0.6-1.0) Estimated GFR (Cockcroft-Gault) 41.4 Glucose Level 107 mg/dL (70-99) Calcium Level 8.8 mg/dL (8.5-10.1) Test 10/21/20 11:28 Glucose (Fingerstick) 143 mg/dL (70-99) Assessment and Plan Assessmemt and Plan Problems Medical Problems: (1) Pneumonia Status: Acute Comment Review of Relevant I have reviewed the following items chris (where applicable) has been applied. Justifications for Admission Other Justification Hypoxic respiratory failure ARGELIA JONES MD Oct 21, 2020 16:10
[2020-10-21 19:53] VITALS: BP 109/76
[2020-10-21] MEDS: MIRTAZAPINE 15 MG TABLET PO SCH (21:48)
[2020-10-21] MEDS: OLANZapine 5 MG TABLET PO SCH (21:48)
[2020-10-21] MEDS: ATORVASTATIN CALCIUM 20 MG TABLET PO SCH (21:49)
[2020-10-21] MEDS: MONTELUKAST SODIUM 10 MG TABLET. PO SCH (21:49)
[2020-10-21] MEDS: CLOTRIMAZOLE 1% VAGINAL CREAM 45GM TUBE. VG SCH (21:50)
[2020-10-21 23:21] VITALS: BP 115/60
[2020-10-22 03:40] VITALS: BP 118/64
[2020-10-22] MEDS: HYDROcodone/APAP 7.5/325MG 1 TAB TABLET PO PRN ×3 (05:57→20:02)
[2020-10-22] MEDS: BUDESONIDE 0.5 MG/2 ML NEBU. NEB SCH ×2 (06:25→20:40)
[2020-10-22] MEDS: IPRATRPIUM/ALBUTEROL 0.5/2.5MG 3 ML NEBU. NEB SCH ×4 (06:25→20:39)
--- NOTE | 2020-10-22 06:43 | CARD ---
MR#: [id number] Date of Study: 10/20/2020 Ordering Physician: LILLIAM BLACKMAN, Referring Physician: LILLIAM BLACKMAN, Tech: Saskia Doshi, [facility] APPROVED REPORT EXAM: Two-dimensional and M-mode echocardiogram with Doppler and color Doppler. INDICATION COPD Dyspnea Congestive Heart Failure MRSA, Bacteremia RISK FACTORS Hyperlipidemia Reason For Test : Rule out Intracardiac Thrombus. PROCEDURE After obtaining informed consent, patient underwent transesophageal echo in the PACU. Type of Sedation : General Anesthesia Sedation was administered by Salas Lux. Sedation was achieved with Propofol 130 mg intravenously. Transesophageal probe was inserted and advanced into esophagus by Tino Fregoso MD. The BRUCE was performed without complications. Throughout the procedure, the blood pressure, pulse oximetry, cardiac rhythm, and rate were monitored . LEFT VENTRICLE The left ventricle is normal size. There is mild concentric left ventricular hypertrophy. The left ve ntricular systolic function is normal. The Ejection Fraction is 55%. There is normal LV segmental wal l motion. RIGHT VENTRICLE The right ventricle is normal size. The right ventricle is mildly hypertrophied. The right ventricula r systolic function is normal. ATRIA The left atrium size is normal. The right atrium size is normal. There is lipomatous hypertrophy of t he interatrial septum. There is no thrombus noted in the left atrial appendage. AORTIC VALVE The aortic valve is normal in structure and function. Doppler and Color Flow revealed trace aortic re gurgitation. There is no significant aortic valvular stenosis. There is no aortic valvular vegetation . MITRAL VALVE The mitral valve is normal in structure and function. There is no evidence of mitral valve prolapse. There is no mitral valve stenosis. Doppler and Color-flow revealed trace mitral regurgitation. TRICUSPID VALVE The tricuspid valve is normal in structure and function. Doppler and Color Flow revealed trace tricus pid regurgitation. There is no tricuspid valve prolapse or vegetation. There is no tricuspid valve st enosis. PULMONIC VALVE The pulmonary valve is normal in structure and function. Doppler and Color Flow revealed trace pulmon ic valvular regurgitation. There is no pulmonic valvular stenosis. GREAT VESSELS The aortic root is normal in size. PERICARDIAL EFFUSION There is no evidence of significant pericardial effusion. There is no pleural effusion. Critical Notification Critical Value: No <Conclusion> The left ventricular systolic function is normal. The Ejection Fraction is 55%. There is normal LV segmental wall motion. There is lipomatous hypertrophy of the interatrial septum. Trace aortic regurgitation. Trace mitral regurgitation. Trace tricuspid regurgitation. There is no evidence of significant pericardial effusion. No intracardiac vegetation or thrombus. Signed by : Tino Fregoso, Electronically Approved : 10/22/2020 06:43:00
[2020-10-22 07:30] VITALS: BP 109/60
[2020-10-22] MEDS: LEVOTHYROXINE 125 MCG TABLET PO SCH (07:41)
[2020-10-22] MEDS: PANTOPRAZOLE 40 MG TABLET.DR. PO SCH (07:41)
[2020-10-22] MEDS: INSULIN LISPRO 300 UNITS/3 ML VIAL. SQ SCH ×3 (07:56→17:32)
--- NOTE | 2020-10-22 07:57 | PDOC ---
Infectious Disease Note Subjective Subjective pt is feeling good ROS ROS No nausea vomiting diarrhea Vital Sign Vital Signs Vital Signs Date Time Temp Pulse Resp B/P (MAP) Pulse Ox O2 Delivery O2 Flow Rate FiO2 10/22/20 06:27 98 Nasal Cannula 2.0 10/22/20 06:27 20 10/22/20 03:40 97.5 78 118/64 (82) 97.5 Physical Exam PHYSICAL EXAM GENERAL: Alert, 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 female, appears comfortable, nontoxic appearing, lying in bed comfortably, in no acute distress. HEENT: Normocephalic, atraumatic. Anicteric. Oral mucosa is moist. NECK: Supple. LUNGS: Decreased breath sounds at the bases. HEART: S1, S2. No gallops or murmurs. ABDOMEN: Soft, nontender, nondistended. Ileostomy in place. Ileostomy without signs of complications. EXTREMITIES: No edema, no cyanosis. DERMATOLOGIC: Warm, dry. No generalized rash. NEUROLOGIC: Alert, 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. Grossly nonfocal. PSYCHIATRIC: Calm and cooperative. Labs Lab Laboratory Tests Test 10/21/20 11:28 10/21/20 16:35 10/21/20 21:21 10/22/20 07:54 Glucose (Fingerstick) 143 mg/dL (70-99) 139 mg/dL (70-99) 120 mg/dL (70-99) 106 mg/dL (70-99) Micro BC + MRSA 10/09 Sputum MRSA BC neg 10/12 and 10/16 Objective Assessment IMPRESSION: 1. Sepsis from Gram-positive bacteremia. 2. Staphylococcus aureus bacteremia, MRSA 3. Leukocytosis. 4. Pneumonia, Staph aureus. 5. Congestive heart failure. 6. Chronic obstructive pulmonary disease, on home O2. 7. Mild hyponatremia. 8. History of cerebrovascular accident. 9. History of chronic pain. 10. Anemia. Plan Plan of Care PICC BRUCE negative Okay to discharge on IV Dapto for total 4 weeks Weekly CBC BUN/creatinine CPK Follow-up with me in 2 weeks BONNIE CANADA MD Oct 22, 2020 07:57
[2020-10-22] MEDS: FLUTICASONE 50MCG/NASAL SPRAY 16GM BOTTLE. NS SCH (09:00)
[2020-10-22] MEDS: busPIRone 10 MG TABLET. PO SCH ×2 (09:04→20:03)
[2020-10-22] MEDS: ASPIRIN 325 MG TABLET PO SCH (09:04)
[2020-10-22] MEDS: FUROSEMIDE 40 MG TABLET. PO SCH ×2 (09:04→13:39)
[2020-10-22] MEDS: LINEZOLID 600 MG TABLET PO SCH ×2 (09:04→20:01)
[2020-10-22] MEDS: LACTOBACILLUS RHAMNOSUS GG 1 CAPSULE. PO SCH ×2 (09:04→20:01)
[2020-10-22] MEDS: GABAPENTIN 300 MG CAPSULE. PO SCH ×3 (09:05→20:02)
[2020-10-22] MEDS: DAPTOmycin (GENERIC) IVPB 500 MG in IV NORMAL SALINE 50ML 50 ML IV SCH (11:39)
[2020-10-22 12:43] VITALS: BP 118/64
--- NOTE | 2020-10-22 13:30 | PDOC ---
[employer] PROGRESS NOTE Date of Service DOS: DATE: 10/22/20 TIME: 13:25 Chief Complaint Chief Complaint A/P: Acute hypoxic respiratory failure, acute bronchitis in COPD patient - aggressive nebs. Bilateral lower lobe CAP - Consulted ID given prior ceftaroline infusion due to MRSA bacteremia. Now on daptomycin and zyvox MRSA bacteremia - incomplete treatment, went home on zyvox. Cont daptomycin. Consulted ID, f/u repeat blood cultures. 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, with prior illness CHF COPD Chronic back pain - spine stimulator in place H/o Stroke FEN - Cardiac diet PPX - heparin FULL CODE Dispo - inpatient History of Present Illness History of Present Illness Ms Ann is a 65-year female with a history of COPD, chronic diastolic CHF, CAD s/p CASIE, short gut syndrome with ileostomy in place, chronic back pain with spinal stimulator in place who was recently admitted to the hospital for pneumonia and MRSA bacteremia who left AMA returns on 10/16/2020 overnight c/o worsening shortness breath and general weakness, she denies chest pain, no fevers or chills. She does note vaginitis and worsening of her chronic lower back pain and now has pain a bit higher. Denies any headache, no neck stiffness or photophobia, cough and wheezing but this is nonproductive, no hemoptysis or night sweats, no leg pain or leg swelling. EKG sinus tachycardia rate of 115 bpm QTC 461 Chest radiograph with interstitial infiltrate improved from prior. Labs WBC 14.5, Hb 13.47, NA 133, K4.4, BUN 11, CR 1.4, glucose 171 BNP 700, troponin 0 Admitted for further care 10/18: Afebrile. Pain reasonably controlled but she is complaining of a yeast infection despite having p.o. fluconazole. Plan for PICC and BRUCE after discussion with infectious diseases. 10/19: Afebrile. Pain controlled has her spine stimulator battery in place now. Vaginitis despite oral fluconazole. Right upper extremity PICC placed without complications. Plan for BRUCE 10/20: Afebrile overnight. Pain is controlled. No further vaginitis after treatment. BP is on the low side still requiring O2. Good ostomy output. No problem with straight cath. N.p.o. for likely BRUCE today. 10/21: Afebrile. I have not seen BRUCE results, but patient and RN report to me that her BRUCE was normal. Will verify BRUCE result and plan to discharge home with IV daptomycin for total of 4 weeks, with ID follow-up. 10/22: Afebrile. Denies nausea or vomiting. BRUCE showed no intracardiac vegetation or thrombus. Discussed with Dr. Shea, patient may discharge home with daptomycin IV x4 weeks. She will need to set up IV infusions with social services aide prior to discharge. We will try to have this arranged tomorrow, and patient will discharge and follow-up outpatient with Dr. Shea. Vitals/I&O Vitals/I&O: Vital Signs Date Time Temp Pulse Resp B/P (MAP) Pulse Ox O2 Delivery O2 Flow Rate FiO2 10/22/20 12:43 97.4 85 16 118/64 (82) 98 Nasal Cannula 2.0 97.4 I & O 10/21/20 10/21/20 10/22/20 15:00 23:00 07:00 Intake Total 670 ml 500 ml 900 ml Balance 670 ml 500 ml 900 ml Physical Exam Physical Exam: General: Alert, Oriented X3, Cooperative, No acute distress Heart: Regular rate Lungs: Other (Decreased breath sounds bilaterally) Abdomen: Normal bowel sounds, Soft, No tenderness, No hepatosplenomegaly, No masses Extremities: No clubbing, No cyanosis, No edema, Normal pulses, No tenderness/swelling Skin: No rashes, No breakdown, No significant lesion Labs Labs: Laboratory Tests Test 10/21/20 16:35 10/21/20 21:21 10/22/20 07:54 10/22/20 12:03 Glucose (Fingerstick) 139 mg/dL (70-99) 120 mg/dL (70-99) 106 mg/dL (70-99) 102 mg/dL (70-99) Assessment and Plan Assessmemt and Plan Problems Medical Problems: (1) Pneumonia Status: Acute Comment Review of Relevant I have reviewed the following items chris (where applicable) has been applied. Justifications for Admission Other Justification Hypoxic respiratory failure ARGELIA JONES MD Oct 22, 2020 13:30
[2020-10-22 15:36] VITALS: BP 152/66
[2020-10-22 19:31] VITALS: BP 100/69
[2020-10-22] MEDS: MONTELUKAST SODIUM 10 MG TABLET. PO SCH (20:02)
[2020-10-22] MEDS: OLANZapine 5 MG TABLET PO SCH (20:02)
[2020-10-22] MEDS: MIRTAZAPINE 15 MG TABLET PO SCH (20:02)
[2020-10-22] MEDS: ATORVASTATIN CALCIUM 20 MG TABLET PO SCH (20:02)
[2020-10-22] MEDS: CLOTRIMAZOLE 1% VAGINAL CREAM 45GM TUBE. VG SCH (20:04)
[2020-10-22] MEDS: NYSTATIN TOPICAL POWDER 15GM BOTTLE. TP SCH (20:06)
[2020-10-22 22:59] VITALS: BP 100/65
[2020-10-23 03:05] VITALS: BP 105/73
[2020-10-23] MEDS: HYDROcodone/APAP 7.5/325MG 1 TAB TABLET PO PRN ×2 (03:28→10:51)
[2020-10-23] MEDS: LEVOTHYROXINE 125 MCG TABLET PO SCH (06:52)
[2020-10-23] MEDS: PANTOPRAZOLE 40 MG TABLET.DR. PO SCH (06:52)
[2020-10-23 07:00] VITALS: BP 118/66
[2020-10-23] MEDS: INSULIN LISPRO 300 UNITS/3 ML VIAL. SQ SCH ×3 (08:00→16:46)
[2020-10-23] MEDS: IPRATRPIUM/ALBUTEROL 0.5/2.5MG 3 ML NEBU. NEB SCH ×3 (08:00→16:22)
[2020-10-23] MEDS: BUDESONIDE 0.5 MG/2 ML NEBU. NEB SCH (08:00)
[2020-10-23] MEDS: GABAPENTIN 300 MG CAPSULE. PO SCH ×2 (08:37→13:33)
[2020-10-23] MEDS: busPIRone 10 MG TABLET. PO SCH (08:37)
[2020-10-23] MEDS: FLUTICASONE 50MCG/NASAL SPRAY 16GM BOTTLE. NS SCH (08:37)
[2020-10-23] MEDS: LACTOBACILLUS RHAMNOSUS GG 1 CAPSULE. PO SCH (08:38)
[2020-10-23] MEDS: FUROSEMIDE 40 MG TABLET. PO SCH ×2 (08:38→13:34)
[2020-10-23] MEDS: ASPIRIN 325 MG TABLET PO SCH (08:38)
[2020-10-23] MEDS: LINEZOLID 600 MG TABLET PO SCH (08:38)
[2020-10-23] MEDS: NYSTATIN TOPICAL POWDER 15GM BOTTLE. TP SCH ×2 (08:39→13:35)
--- NOTE | 2020-10-23 10:41 | PDOC ---
Infectious Disease Note Subjective: Subjective Patient without complaints Denies fever, nausea, vomiting, shortness of breath, diarrhea, abdominal pain, rash Otherwise as above Eager for discharge home today Vital Signs: Vital Signs Vital Signs Date Time Temp Pulse Resp B/P (MAP) Pulse Ox O2 Delivery O2 Flow Rate FiO2 10/23/20 08:28 Nasal Cannula 2.0 10/23/20 08:02 97 10/23/20 07:00 97.8 85 18 118/66 (83) 97.8 Physical Exam: PHYSICAL EXAM GENERAL: Alert, 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 female, appears comfortable, nontoxic appearing, lying in bed comfortably, in no acute distress. HEENT: Normocephalic, atraumatic. Anicteric. Oral mucosa is moist. NECK: Supple. LUNGS: Decreased breath sounds at the bases. HEART: S1, S2. No gallops or murmurs. ABDOMEN: Soft, nontender, nondistended. Ileostomy in place. Ileostomy without signs of complications. EXTREMITIES: No edema, no cyanosis. DERMATOLOGIC: Warm, dry. No generalized rash. NEUROLOGIC: Alert, 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. Grossly nonfocal. PSYCHIATRIC: Calm and cooperative. PICC line clean Medications: Inpatient Meds: Medications reviewed. Labs: Lab Laboratory Tests Test 10/22/20 12:03 10/22/20 15:34 10/22/20 17:29 10/22/20 20:15 Glucose (Fingerstick) 102 mg/dL (70-99) 112 mg/dL (70-99) 162 mg/dL (70-99) 103 mg/dL (70-99) Test 10/23/20 08:25 Glucose (Fingerstick) 110 mg/dL (70-99) Objective: Assessment: 1. Sepsis from Gram-positive bacteremia. 2. Staphylococcus aureus bacteremia, MRSA Repeat blood cultures negative from October 16, 2020 BRUCE negative for vegetation 3. Leukocytosis. 4. Pneumonia, Staph aureus. 5. Congestive heart failure. 6. Chronic obstructive pulmonary disease, on home O2. 7. Mild hyponatremia. 8. History of cerebrovascular accident. 9. History of chronic pain. 10. Anemia. History of noncompliance She left hospital on linezolid after signing out AMA and returned back Plan: Plan of Care PICC BRUCE negative IV Dapto for total 4 weeks PICC line placement PICC linen sorter and complications discussed Side effects of antibiotics discussed Social work to assist with discharge antibiotics Q. Friday labs CBC/BUN/creatinine/CPK Fax results to [phone] Follow-up ID clinic NOV 07 AT 3PM D/W JUDSON POLLOCK MD Oct 23, 2020 10:41
[2020-10-23 11:00] VITALS: BP 109/64
--- NOTE | 2020-10-23 12:03 | SNU/HH DC ---
DISCHARGE WITH HOME HEALTH DISCHARGE INFORMATION: Final Diagnosis: Problems Medical Problems: (1) Pneumonia Status: Acute Condition on Discharge: Stable CODE STATUS: Code Status: Full HOME HEALTH: Face to Face: I certify this patient is under my care and that I, or a nurse practitioner or physician's assistant head cashier working with me, had a face to face encounter that meets the physician face to face encounter requirements with this patient on []. Medical Complications: Other (Recent pneumonia) Snf For: Admin/Educate Injections RN For Eval/Treatment: Yes Physical Therapy For: Evalulation/Treatment Occupational Therapy For: Evaluation/Treatment Home Health Aide For: Self-care DIRECTOR OF ANALYTICS For: Community Resources Pt Meets Homebound Status: Poor coordination w/ amb. POST DISCHARGE ORDERS: Activity Instructions for Disc: Activity as tolerated, Avoid exertion, Pr ogressive ambulation Weight Bearing Status after Di: As tolerated Bathing Instructions: Shower-keep dressing dry, No Tub Bath until see Dr. CORLEY AFTER DISCHARGE: Cardiac Wound/Incision Care: Ice to area for comfort, Keep wound/cast CDI, May get incision wet CHECKS AFTER DISCHARGE: Checks after discharge: Check blood press - daily, Check your Temp as needed TREATMENT/EQUIPMENT ORDERS: Adaptive Equipment Issued: Walker CERTIFICATION STATEMENT: Certification Statement: Certification Statement: Based on the above finding, I certify that this patient is confined to the home and needs intermittent [facility] care, physical therapy and/or speech therapy, or continues to need occupational therapy.~ This patient is under my care, and I have initiated the establishment of the plan of care.~ This patient will be followed by myself or a community physician who will periodically review the plan of care. Home Meds Active Scripts Hydrocodone Bit/Acetaminophen (HYDROCODONE-APAP 7.5-325 ) 1 Tab Tablet, 1 TAB PO PRN Q6HRS PRN for PAIN for 30 Days, TAB 0 Refills Prov:NICOLAS HICKS MD 11/17/18 Reported Medications Oxycodone HCl/Acetaminophen (Percocet 5-325 mg Tablet) 1 Each Tablet, 1-2 TAB PO PRN Q6HRS PRN for PAIN MDD 2 Tablet(s) for 14 Days, #30 TAB 0 Refills 08/18/20 Levothyroxine Sodium (LEVOTHYROXINE SODIUM) 125 Mcg Tablet, 125 MCG PO DAILYAC for THYROID SUPPLEMENT, #30 TAB 0 Refills 08/11/20 Fluticasone Propionate (Flonase Allergy Relief) 9.9 Ml [place].susp, 2 SPRAYS NS DAILY for ALLERGIES , ML 08/11/20 Oxybutynin Chloride (OXYBUTYNIN CHLORIDE ER) 10 Mg Tab.er.24, 10 MG PO DAILY for BLADDER , TAB.SR 08/11/20 Ferrous Sulfate (FERROUS SULFATE) 325 Mg Tablet, 1 TAB PO TID for ANEMIA, #30 TAB 3 Refills 09/20/19 Acyclovir (ZOVIRAX) 5 Gm Cream..g., 1 RITA TP 5XDAY for Shingles, #5 GM 1 Refill 09/20/19 Multivitamin (MULTIPLE VITAMINS) 1 Each Tablet, 1 TAB PO DAILY for Supplement for 30 Days, #30 TAB 0 Refills 09/20/19 Mirtazapine (MIRTAZAPINE) 30 Mg Tab.rapdis, 1 TAB PO QHS for Depression for 30 Days, #30 TAB 0 Refills 09/20/19 Montelukast Sodium (MONTELUKAST SODIUM TABLET ) 10 Mg Tablet, 10 MG PO HS for FOR ASTHMA, TAB 0 Refills 09/20/19 Mupirocin (MUPIROCIN OINTMENT) 22 Gm Oint...g., 1 RITA TP PRN TID PRN for SKIN BREAKDOWN, #1 TUBE 09/20/19 Nystatin (NYAMYC) 15 Gm Powder, 15 GM TP PRN PRN for RASH, MISC 09/20/19 Ergocalciferol (Vitamin D2) (Vitamin D2) 1,250 Mcg Capsule, 81732 MCG PO WEEKLY for SUPPLEMENT, CAP 09/20/19 Calcium Carbonate/Vitamin D3 (CALCIUM 600 + VIT D TABLET) 1 Each Tablet, 1 EACH PO BID for SUPPLEMENT, TAB 09/20/19 Albuterol Sulfate (ALBUTEROL SULFATE NEB SOLN) 0.63 Mg/3 Ml Vial.neb, 1 VIAL NEB QID for copd, #150 ML 1 Refill 06/09/17 Olanzapine (OLANZAPINE) 5 Mg Tablet, 1 TAB PO QHS for depression, #30 TAB 2 Refills 06/09/17 Buspirone Hcl (BUSPIRONE HCL) 10 Mg Tablet, 1 TAB PO BID for depression, #60 TAB 1 Refill 06/09/17 Venlafaxine Hcl (EFFEXOR XR) 150 Mg Cap.er.24h, 2 CAP PO DAILY for depression, #30 CAP 1 Refill 06/09/17 Atorvastatin Calcium (ATORVASTATIN CALCIUM) 20 Mg Tablet, 40 MG PO HS for elevated cholesterol 04/26/13 Alprazolam (XANAX) 1 Mg Tablet, 1 MG PO QID for anxiety 04/26/13 Furosemide (LASIX) 40 Mg Tablet, 40 MG PO BID92 for chf 04/26/13 Aspirin (ASPIRIN) 325 Mg Tablet, 325 MG PO DAILY for [place] 04/26/13 Gabapentin (GABAPENTIN) 600 Mg Tablet, 600 MG PO TID for neuropathy 04/26/13 Tizanidine Hcl (TIZANIDINE HCL) 4 Mg Tablet, 4 MG PO QID for muscle relaxer 04/26/13 Omeprazole (OMEPRAZOLE) 20 Mg Tablet.dr, 20 MG PO DAILY07 for GERD 04/26/13 Potassium Chloride (KLOR-CON) 20 Meq Packet, 40 MEQ PO TID for supplements potassium, PACKET 04/26/13 Albuterol Sulfate (PROAIR HFA INHALER) 8.5 Gm Hfa.aer.ad, 8.5 GM IH Q4HRS PRN for SHORTNESS OF BREATH 04/26/13 Fluticasone/Salmeterol (ADVAIR 500-50 DISKUS) 1 Each Disk.w.dev, 1 EACH IH BID for COPD 04/26/13 DIONNE QUINONES III DO Oct 23, 2020 12:03
[2020-10-23] MEDS: DAPTOmycin (GENERIC) IVPB 500 MG in IV NORMAL SALINE 50ML 50 ML IV SCH (12:10)
[2020-10-23 12:27] LABS: BASO # 0.1 x10^3/uL (0.0-0.2); BASO % 1 % (0-3); EOS # 0.1 x10^3/uL (0.0-0.7); EOS % 1 % (0-3); HEMATOCRIT 30.4 % (36.0-47.0); HEMOGLOBIN 10.2 g/dL (12.0-15.5); LYMPH # 2.5 x10^3/uL (1.0-4.8); LYMPH % 26 % (24-48); MEAN CORPUSCULAR HEMOGLOBIN 31 pg (25-35); MEAN CORPUSCULAR HGB CONC 33 g/dL (31-37); MEAN CORPUSCULAR VOLUME 92 fL (79-100); MONO # 0.3 x10^3/uL (0.0-1.1); MONO % 4 % (0-9); NEUT # 6.5 x10^3/uL (1.8-7.7); NEUT % 69 % (31-73); PLATELET COUNT 235 x10^3/uL (140-400); RED BLOOD COUNT 3.29 x10^6/uL (3.50-5.40); RED CELL DISTRIBUTION WIDTH 13.4 % (11.5-14.5); WHITE BLOOD COUNT 9.4 x10^3/uL (4.0-11.0)
--- NOTE | 2020-10-23 13:04 | PDOC ---
[facility] [facility] PROGRESS NOTE Date of Service DOS: DATE: 10/23/20 TIME: 12:51 Chief Complaint Chief Complaint Acute hypoxic respiratory failure Acute bronchitis COPD patient Bilateral lower lobe CAP MRSA bacteremia Dehydration w/ acute hyponatremia, hypochloremia, hypokalemia. FELICIA due to vasomotor nephropathy Moderate protein malnutrition Sepsis Vaginitis - treated History of Present Illness History of Present Illness Ms Ann is a 65-year female with a history of COPD, chronic diastolic CHF, CAD s/p CASIE, short gut syndrome with ileostomy in place, chronic back pain with spinal stimulator in place who was recently admitted to the hospital for pneumonia and MRSA bacteremia who left AMA returns on 10/16/2020 overnight c/o worsening shortness breath and general weakness, she denies chest pain, no fevers or chills. She does note vaginitis and worsening of her chronic lower back pain and now has pain a bit higher. Denies any headache, no neck stiffness or photophobia, cough and wheezing but this is nonproductive, no hemoptysis or night sweats, no leg pain or leg swelling. EKG sinus tachycardia rate of 115 bpm QTC 461. Chest radiograph with interstitial infiltrate improved from prior. Labs WBC 14.5, Hb 13.47, NA 133, K4.4, BUN 11, CR 1.4, glucose 171 BNP 700, troponin 0. Admitted for further care. 10/18: Afebrile. Pain reasonably controlled but she is complaining of a yeast infection despite having p.o. fluconazole. Plan for PICC and BRUCE after discussion with infectious diseases. 10/19: Afebrile. Pain controlled has her spine stimulator battery in place now. Vaginitis despite oral fluconazole. Right upper extremity PICC placed without complications. Plan for BRUCE 10/20: Afebrile overnight. Pain is controlled. No further vaginitis after treatment. BP is on the low side still requiring O2. Good ostomy output. No problem with straight cath. N.p.o. for likely BRUCE today. 10/21: Afebrile. I have not seen BRUCE results, but patient and RN report to me that her BRUCE was normal. Will verify BRUCE result and plan to discharge home with IV daptomycin for total of 4 weeks, with ID follow-up. 10/22: Afebrile. Denies nausea or vomiting. BRUCE showed no intracardiac vegetation or thrombus. Discussed with Dr. Shea, patient may discharge home with daptomycin IV x4 weeks. She will need to set up IV infusions with social se rvices prior to discharge. We will try to have this arranged tomorrow, and patient will discharge and follow-up outpatient with Dr. Shea. 10/23: Afebrile. Patient seen and examined at bedside. Chart reviewed. D/W RN and manager social work. Discharge pending manager social work arrangement for IV infusions. Vitals/I&O Vitals/I&O: Vital Signs Date Time Temp Pulse Resp B/P (MAP) Pulse Ox O2 Delivery O2 Flow Rate FiO2 10/23/20 11:27 Nasal Cannula 2.0 10/23/20 11:23 96 10/23/20 11:00 97.4 81 18 109/64 (79) 97.4 I & O 10/22/20 10/22/20 10/23/20 15:00 23:00 07:00 Intake Total 170 ml 150 ml Output Total 200 ml Balance 170 ml -50 ml Physical Exam Physical Exam: GENERAL: Alert, 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 female, appears comfortable, nontoxic appearing, lying in bed comfortably, in no acute distress. HEENT: Normocephalic, atraumatic. Anicteric. Oral mucosa is moist. NECK: Supple. LUNGS: Decreased breath sounds at the bases. HEART: S1, S2. No gallops or murmurs. ABDOMEN: Soft, nontender, nondistended. Ileostomy in place. Ileostomy without signs of complications. EXTREMITIES: No edema, no cyanosis. DERMATOLOGIC: Warm, dry. No generalized rash. NEUROLOGIC: Alert, 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. Grossly nonfocal. PSYCHIATRIC: Calm and cooperative. PICC line clean General: Alert, Oriented X3, Cooperative, No acute distress Heart: Regular rate Lungs: Other (Decreased breath sounds bilaterally) Abdomen: Normal bowel sounds, Soft, No tenderness, No hepatosplenomegaly, No masses Extremities: No clubbing, No cyanosis, No edema, Normal pulses, No tende rness/swelling Skin: No rashes, No breakdown, No significant lesion Labs Labs: Laboratory Tests Test 10/22/20 15:34 10/22/20 17:29 10/22/20 20:15 10/23/20 08:25 Glucose (Fingerstick) 112 mg/dL (70-99) 162 mg/dL (70-99) 103 mg/dL (70-99) 110 mg/dL (70-99) Test 10/23/20 12:02 10/23/20 12:15 Glucose (Fingerstick) 126 mg/dL (70-99) White Blood Count 9.4 x10^3/uL (4.0-11.0) Red Blood Count 3.29 x10^6/uL (3.50-5.40) Hemoglobin 10.2 g/dL (12.0-15.5) Hematocrit 30.4 % (36.0-47.0) Mean Corpuscular Volume 92 fL (79-100) Mean Corpuscular Hemoglobin 31 pg (25-35) Mean Corpuscular Hemoglobin Concent 33 g/dL (31-37) Red Cell Distribution Width 13.4 % (11.5-14.5) Platelet Count 235 x10^3/uL (140-400) Neutrophils (%) (Auto) 69 % (31-73) Lymphocytes (%) (Auto) 26 % (24-48) Monocytes (%) (Auto) 4 % (0-9) Eosinophils (%) (Auto) 1 % (0-3) Basophils (%) (Auto) 1 % (0-3) Neutrophils # (Auto) 6.5 x10^3/uL (1.8-7.7) Lymphocytes # (Auto) 2.5 x10^3/uL (1.0-4.8) Monocytes # (Auto) 0.3 x10^3/uL (0.0-1.1) Eosinophils # (Auto) 0.1 x10^3/uL (0.0-0.7) Basophils # (Auto) 0.1 x10^3/uL (0.0-0.2) Review of Systems Review of Systems: Denies pain or discomfort. Denies fever or chills. Assessment and Plan Assessmemt and Plan Problems Medical Problems: (1) Pneumonia Status: Acute Assessment: Acute hypoxic respiratory failure Acute bronchitis COPD patient Bilateral lower lobe CAP MRSA bacteremia Dehydration w/ acute hyponatremia, hypochloremia, hypokalemia. FELICIA due to vasomotor nephropathy Moderate protein malnutrition Sepsis Vaginitis - treated Short gut w/ ileostomy Weakness, debility, acute myopathy on chronic CHF COPD Plan: Possible d/c today pending manager social work. Appreciate subspecialist input. IV daptomycin. Trend labs. Home meds. Full code. PT/OT. Comment Review of Relevant I have reviewed the following items chris (where applicable) has been applied. Medications: Current Medications Medications (Trade) Dose Ordered Sig/Joel Route PRN Reason Start Time Stop Time Status Last Admin Dose Admin Nystatin (Nystop) 1 abner TID TP 10/22/20 21:00 10/23/20 08:39 Justifications for Admission Other Justification Hypoxic respiratory failure DIONNE QUINONES III DO Oct 23, 2020 13:03
--- NOTE | 2020-10-23 14:11 | NUR ---
SW following. Discussed with RN, pt needing jail IV Daptomycin. SW met with pt, pt agreeable - does not have a preference of provider for home health or home infusion. [facility] are not in network with pt's insurance, referral faxed to [facility] - pt covered at 100% for home infusion. Pt accepted with [facility] for home health services. [facility] will be by to do the teach between [id number]. RN notified. No other SW needs. Discharge home today.
[2020-10-23 15:00] VITALS: BP 115/72
--- NOTE | 2020-10-23 15:10 | DS ---
DATE OF DISCHARGE: 10/23/2020 ADMISSION DIAGNOSES: Methicillin-resistant Staphylococcus aureus bacteremia, dehydration, acute kidney injury. DISCHARGE DIAGNOSES: Resolving respiratory failure, resolved pneumonia, resolving acute kidney injury, obesity, sepsis, short gut syndrome, congestive heart failure, chronic obstructive pulmonary disease, chronic pain, history of stroke, resolving sepsis from gram-positive bacteremia, resolving heart failure, chronic anemia. CONSULTS: Infectious Disease. PROCEDURES: Transesophageal echo. HOSPITAL COURSE: The patient is a pleasant elderly female who presented with multifactorial respiratory failure. She was admitted. We gave her IV antibiotics, breathing treatments, oxygen, steroids, home meds, DVT prophylaxis and we consulted Infectious Disease. Over the past few days, she has returned to baseline, but is requiring IV daptomycin at home. I spoke with case management this morning and the plan is to get her home with IV daptomycin. DISPOSITION: Home. ACTIVITY: As tolerated. DIET: Low sodium. DISCHARGE MEDICATIONS: Please see the MRAD. Other medications we are doing; home IV daptomycin, acyclovir one tablet 5 times a day, albuterol, Xanax one q.i.d., aspirin 325 a day, atorvastatin 40 a day, calcium, vitamin D, iron 325, Lasix 40 a day, gabapentin 600 t.i.d., p.r.n. hydrocodone 7.5 q.6, Synthroid 125 a day, mirtazapine 30 a day, Singulair 10 a day, vitamins, Nystatin powder, Zyprexa 5 at bedtime, omeprazole 20 a day, oxybutynin 10 a day, p.r.n. Percocet 5 q.6 p.r.n., potassium 40 t.i.d., tizanidine 4 q.i.d. and Effexor XR two tablets daily. TOTAL TIME: [address]: Edy TID: [id number]
--- NOTE | 2020-10-23 17:41 | NUR ---
Pt left unit at 1730 by wheelchair via private vehicle, accompanied by boyfriend. VSS, PICC line remains in place for home abx infusions. Pt's discharge paperwork discussed with pt and boyfriend at bedside. Additional questions addressed.
== END 2020-10-23 17:45 | disposition home health service (06) | DRG 871 ==
LOC: ER 19:38 → INTOOBSV 21:00 → ED HOLD 21:00 → 5 SOUTH 10-17 00:30 → OBSVTOIN 10-18 12:19
PROVIDERS: ADMIT Family Medicine; ATTEND Family Medicine
PROC: 02HV33Z Insertion of Infusion Device into Superior Vena Cava, Percutaneous Approach (ICD-10-PCS; principal; 2020-10-18)
PROC: B548ZZA Ultrasonography of Superior Vena Cava, Guidance (ICD-10-PCS; 2020-10-18)
DX: A41.02 Sepsis due to Methicillin resistant Staphylococcus aureus (principal); J18.9 Pneumonia, unspecified organism; J96.01 Acute respiratory failure with hypoxia; N17.0 Acute kidney failure with tubular necrosis; E44.0 Moderate protein-calorie malnutrition; E87.1 Hypo-osmolality and hyponatremia; I13.0 Hypertensive heart and chronic kidney disease with heart failure and stage 1 through stage 4 chronic kidney disease, or unspecified chronic kidney disease; I50.32 Chronic diastolic (congestive) heart failure; J44.0 Chronic obstructive pulmonary disease with (acute) lower respiratory infection; F32.9 Major depressive disorder, single episode, unspecified; F41.9 Anxiety disorder, unspecified; G62.9 Polyneuropathy, unspecified; K21.9 Gastro-esophageal reflux disease without esophagitis; B37.3 Candidiasis of vulva and vagina; D64.9 Anemia, unspecified; E03.9 Hypothyroidism, unspecified; Z20.822 Contact with and (suspected) exposure to COVID-19; E66.9 Obesity, unspecified; E78.5 Hyperlipidemia, unspecified; E86.0 Dehydration; E87.6 Hypokalemia; E87.8 Other disorders of electrolyte and fluid balance, not elsewhere classified; G89.29 Other chronic pain; I25.10 Atherosclerotic heart disease of native coronary artery without angina pectoris; J20.9 Acute bronchitis, unspecified; Z96.649 Presence of unspecified artificial hip joint; Z96.659 Presence of unspecified artificial knee joint; M79.7 Fibromyalgia; N18.9 Chronic kidney disease, unspecified; Z68.32 Body mass index [BMI] 32.0-32.9, adult; Z82.3 Family history of stroke; Z86.711 Personal history of pulmonary embolism; Z86.73 Personal history of transient ischemic attack (TIA), and cerebral infarction without residual deficits; Z87.891 Personal history of nicotine dependence; Z90.710 Acquired absence of both cervix and uterus; Z91.19 Patient's noncompliance with other medical treatment and regimen; Z95.5 Presence of coronary angioplasty implant and graft; Z99.81 Dependence on supplemental oxygen; Z68.33 Body mass index [BMI] 33.0-33.9, adult; Z90.49 Acquired absence of other specified parts of digestive tract; I25.2 Old myocardial infarction
CPT/HCPCS: 36415; 36569; 71045; 80048; 80053; 82550; 82962; 83036; 83690; 83880; 84484; 85007; 85025; 87040; 87426; 93005; 93312; 93320; 93325; 94640; 94760; 96365; 96366; 96368; G0378; G0379; J0878; J1815; J2405; J2543; J2704; J2930; J3010; J3370; J7030; J7040; U0003; U0005; 99285-25; J7613; J7626

== ENCOUNTER → 2021-01-10 | Outpatient (CLI) | payer OTHER ==
[~2021-01-10] MED LIST changes: +MAGN400T48 PO; -MAGN400T5 PO; +TIZA-75 PO; -TIZA4TAB2 PO
--- NOTE | 2021-01-10 11:52 | PDOC ---
Progress Note - Pain Clinic Date of Service: DOS: DATE: 01/10/21 TIME: 11:47 Diagnosis: Dx: Lumbar radiculopathy with lumbar degenerative disc disease lumbar spinal stenosis and lumbar postlaminectomy syndrome History or Present Illness: HPI: 65-year-old female returns for follow-up last seen May 2020 patient had spinal cord stimulator implant March 2020 and is doing quite well with this. Patient reports that she had some questions regarding the stimulator and its level of use. Patient reports no difficulty with charging the stimulator and is charging fine and she is keeping it at a variable level anywhere from 1-5 on her programs and feels best at her program #5. She reports good coverage of the low back and the bilateral lower extremities she is increased activity greater ease and comfort is performing activities that she was previously afraid to do because of the pain and feels that she is very pleased with her progress rates at about 90% overall patient rates her pain as an 8 on scale 10 is worst over the past week 7 on average 7 its least is a 7 today but with the stimulator at the level 5 program she feels much better with more of a 1 or 2 on a scale of 10 with the pain. Patient reports still some pain in the low back and the legs aching sharp dull tight shooting tingling and burning at times radiating at times but improved from previous to spinal cord stimulator placement. Again patient reports the stimulator is holding his chart very well and is covering areas where it is needed to cover her pain. Physical Exam: VS: Blood pressure is 116/67 pulse 93 respirations 18 temperature 98.3 F height is 5 feet 8 inches weight 213 pounds PE: PHYSICAL EXAMINATION: GENERAL: The patient is awake, alert, oriented, appropriate, very pleasant in demeanor HEENT: Shows normocephalic, atraumatic. Extraocular movements are intact and symmetrical. Oral cavity: Mucous membranes moist and pink. NECK: Shows anterior throat supple without palpable lymphadenopathy noted. Swal low reflex symmetrical. CHEST: Shows normal on inspection. Breath sounds are clear bilaterally, distant but no rales or rhonchi. HEART: Shows S1, S2 clear. No murmurs auscultated. ABDOMEN: Soft, nontender, nondistended, obese. No palpable organomegaly is noted. BACK: Shows spine grossly in the midline. Normal-appearing cervical lordotic curvature. There is slightly increased thoracic kyphosis, some flattening of the lumbar lordotic curvature. Well-healed surgical scars noted with easily palpable spinal cord stimulator in the left paramedian distribution which is nontender. Lumbar paraspinous muscles show symmetrical on inspection, on palpation shows some moderate tenderness diffusely throughout the upper, middle and lower distribution of the paraspinous muscles, but without specific trigger points, without radiation of pain. The patient has good rotational motion of the lumbar spine, both laterally as well as extension and flexion without significant difficulty. No tenderness over the spinous processes, sacrum or sacroiliac regions. EXTREMITIES: Lower extremities show deep tendon reflexes 1+ in the patellar and tendo calcaneus tendons. Motor exam is 4 on a scale of 5 with right dorsiflexion, extension, quadriceps and hamstring flexion and 5/5 on the left. Peripheral pulses are 1 posterior tibial. No peripheral edema is noted bilaterally. Lower extremities are warm and dry to touch, equal in color and appearance. SKIN: Shows warm and dry, good turgor. No edema. No sores, rashes or bruising throughout. Procedure: Procedure: Options were discussed with the patient. Patient chart reviews her current medication regimen updated current review of systems updated today as well. We will have patient maintain her spinal cord stimulator level at that level but is most comfortable and maintain charging to be discussed with her once again. Patient was encouraged to contact stimulator representatives if level of charging and/or stimulation changes or was inadequate. Patient will follow up at this time on as-needed basis. Medication Injected: Med Injected: None Condition at Discharge: Condition at Discharge: Condition at discharge is stable. HONORIO GARNER MD Jan 10, 2021 11:52
== END | disposition home or self-care (01) ==
LOC: PNCL 11:10
PROVIDERS: ATTEND Anesthesiology
DX: M51.16 Intervertebral disc disorders with radiculopathy, lumbar region (principal); M48.061 Spinal stenosis, lumbar region without neurogenic claudication; M96.1 Postlaminectomy syndrome, not elsewhere classified; E78.00 Pure hypercholesterolemia, unspecified; I25.10 Atherosclerotic heart disease of native coronary artery without angina pectoris; J43.9 Emphysema, unspecified; K21.9 Gastro-esophageal reflux disease without esophagitis; M19.90 Unspecified osteoarthritis, unspecified site; E03.9 Hypothyroidism, unspecified; I13.0 Hypertensive heart and chronic kidney disease with heart failure and stage 1 through stage 4 chronic kidney disease, or unspecified chronic kidney disease; I50.9 Heart failure, unspecified; N18.2 Chronic kidney disease, stage 2 (mild); F41.9 Anxiety disorder, unspecified; F32.9 Major depressive disorder, single episode, unspecified; Z86.73 Personal history of transient ischemic attack (TIA), and cerebral infarction without residual deficits; Z90.49 Acquired absence of other specified parts of digestive tract; Z90.710 Acquired absence of both cervix and uterus; Z98.890 Other specified postprocedural states; Z79.899 Other long term (current) drug therapy; Z87.891 Personal history of nicotine dependence; Z88.8 Allergy status to other drugs, medicaments and biological substances
CPT/HCPCS: 99212; G0463

== ENCOUNTER → 2021-03-22 | Outpatient (CLI) | payer OTHER ==
--- NOTE | 2021-03-22 11:32 | PDOC ---
Progress Note - Pain Clinic Date of Service: DOS: DATE: 03/22/21 TIME: 11:24 Diagnosis: Dx: Lumbar radiculopathy with lumbar degenerative disc disease lumbar spinal stenosis and lumbar postlaminectomy syndrome History or Present Illness: HPI: 65-year-old female returns for follow-up after a spinal cord stimulator implant approximately 1 year ago patient has been doing very well since that time repo rts over the past month or so pain is returned in the low back and bilateral lower extremities which is not well covered with her stimulator. Patient reports her pain is a 9 on scale 10 is worst least and average Today patient reports aching sharp dull tight shooting in the low back rating the posterior gluteus posterior thighs anterior thighs medial thighs medial lower legs with both legs which are feeling fatigued but has had several falls since that time patient is walking with a walker today reports the pain is increasing over the past month or so patient reports no bowel or bladder incontinence reports that her stimulator is staying charged and she is charging it daily and is using her #5 program which she feels was the best but over the past month it has not been covering the pain in the lower extremities. Patient reports no overt motor loss but significant fatigability again several falls over the last months with the pain. Patient reports no bowel or bladder incontinence. Physical Exam: VS: Blood pressure is 146/91 pulse 94 respirations 18 temperature 97.8 F weight is 232 pounds. PE: PHYSICAL EXAMINATION: GENERAL: The patient is awake, alert, oriented, appropriate, very pleasant in demeanor HEENT: Shows normocephalic, atraumatic. Extraocular movements are intact and symmetrical. Oral cavity: Mucous membranes moist and pink. Dentition is intact. NECK: Shows anterior throat supple without palpable lymphadenopathy noted. Swallow reflex symmetrical. CHEST: Shows normal on inspection. Breath sounds are clear bilaterally, distant but no rales or rhonchi. HEART: Shows S1, S2 clear. No murmurs auscultated. ABDOMEN: Soft, nontender, nondistended. No palpable organomegaly is noted. BACK: Shows spine grossly in the midline. Normal-appearing cervical lordotic curvature. There is slightly increased thoracic kyphosis, some flattening of the lumbar lordotic curvature with well-healed surgical scarring noted and easily palpable spinal cord stimulator generator. Lumbar paraspinous muscles show symmetrical on inspection, on palpation shows some moderate tenderness diffusely throughout the upper, middle and lower distribution of the paraspinous muscles, but without specific trigger points, without radiation of pain. The patient has good rotational motion of the lumbar spine, both laterally as well as extension and flexion without significant difficulty. No tenderness over the spinous processes, sacrum or sacroiliac regions. EXTREMITIES: Lower extremities show deep tendon reflexes 1+ in the patellar and tendo calcaneus tendons. Motor exam is 4 on a scale of 5 with right dorsiflex ion, extension, quadriceps and hamstring flexion and 4/5 on the left. Peripheral pulses are 1+ posterior tibial. No peripheral edema is noted bilaterally. Lower extremities are warm and dry to touch, equal in color and appearance. SKIN: Shows warm and dry, good turgor. No edema. No sores, rashes or bruising throughout. Procedure: Procedure: Options discussed with patient. Patient chart reviews her current medication regimen updated current review of systems updated today as well. We will have patient reprogrammed with [place] equal opportunity representative, if not significantly improved we will schedule MRI scan to assess any changes that may complain the radiculopathy in the bilateral lower extremities worsening despite spinal cord stimulator reprogramming. [place] equal opportunity representative will contact patient later today as we contacted the equal opportunity representative while patient was in the office today and will proceed Medication Injected: Med Injected: None Condition at Discharge: Condition at Discharge: Condition at discharge is stable. HONORIO GARNER MD Mar 22, 2021 11:32
== END | disposition home or self-care (01) ==
LOC: PNCL 10:47
PROVIDERS: ATTEND Anesthesiology
DX: M51.16 Intervertebral disc disorders with radiculopathy, lumbar region (principal); M48.061 Spinal stenosis, lumbar region without neurogenic claudication; M96.1 Postlaminectomy syndrome, not elsewhere classified; I13.0 Hypertensive heart and chronic kidney disease with heart failure and stage 1 through stage 4 chronic kidney disease, or unspecified chronic kidney disease; I50.9 Heart failure, unspecified; N18.2 Chronic kidney disease, stage 2 (mild); I25.10 Atherosclerotic heart disease of native coronary artery without angina pectoris; J43.9 Emphysema, unspecified; E78.00 Pure hypercholesterolemia, unspecified; E03.9 Hypothyroidism, unspecified; M19.90 Unspecified osteoarthritis, unspecified site; F41.9 Anxiety disorder, unspecified; F32.9 Major depressive disorder, single episode, unspecified; K21.9 Gastro-esophageal reflux disease without esophagitis; Z86.73 Personal history of transient ischemic attack (TIA), and cerebral infarction without residual deficits; Z90.49 Acquired absence of other specified parts of digestive tract; Z90.710 Acquired absence of both cervix and uterus; Z98.890 Other specified postprocedural states; Z87.891 Personal history of nicotine dependence; Z79.899 Other long term (current) drug therapy; Z88.8 Allergy status to other drugs, medicaments and biological substances
CPT/HCPCS: 99212; G0463

== ENCOUNTER → 2021-05-02 | Outpatient (CLI) | payer OTHER ==
[~2021-05-02] MED LIST changes: +GADOTERATE 7.5 MMOL/15ML VIAL. IVP ONE
--- NOTE | 2021-05-02 11:45 | RAD ---
EXAM: Lumbar spine MRI without and with contrast. HISTORY: Radiculopathy. TECHNIQUE: Multiplanar, multisequence magnetic resonance imaging of the lumbar spine was performed wi thout and with contrast. COMPARISON: None. FINDINGS: There is instrumented posterior spinal fusion and disc space fusion device placement at L4- L5. There is 3 mm grade 1 anterolisthesis at this level. There is mild multilevel endplate remodeling . There is no suspicious osseous lesion. There is no acute or subacute fracture. The conus terminates at T12-L1. There is a generator lead within the left back soft tissues. The lead enters the dorsal a spect of the central canal at T12-L1 and extends cephalad beyond the [id number]. There is scarring within the mid lower lumbar soft tissues due to prior instrumented fusion and laminectomy decompress ion. No suspicious enhancing lesion is seen. The liver is enlarged. At L1-L2, there is no stenosis. At L2-L3, there is a minimal disc bulge and endplate remodeling. There is moderate to severe right an d moderate left facet arthropathy and trace fluid within the facet joints. There is moderate left for aminal stenosis. There is moderate central canal stenosis. At L3-L4, there is a moderate disc bulge and mild endplate remodeling. There is moderate bilateral fa cet arthropathy with trace fluid within the facet joints. There is mild left greater than right ivania inal stenosis. There is mild to moderate central canal stenosis. At L4-L5, there is instrumented fusion and laminectomy decompression. There is no stenosis. At L5-S1, there is left lateral predominant endplate remodeling. There is moderate right and mild lef t facet arthropathy. There is no stenosis. IMPRESSION: 1. Instrumented posterior spinal fusion with disc space fusion device placement and laminectomy decom pression at L4-L5. There is no stenosis at this level, allowing for limitations due to metallic artif act. 2. Multilevel degenerative change involving the lumbar spine, described in detail above. This is asso ciated with moderate left foraminal and central canal stenosis at L2-L3 and mild left greater than ri ght foraminal and mild to moderate central canal stenosis at L3-L4. 3. Dorsal column stimulator leads entering the central canal at T12-L1 and extending cephalad beyond the [id number]. 4. Suspected hepatomegaly. Electronically signed by: Brenda Guan MD (05/02/2021 11:42 AM) [id number]
== END | disposition home or self-care (01) ==
LOC: MRI 09:20
PROVIDERS: ATTEND Anesthesiology
DX: M47.26 Other spondylosis with radiculopathy, lumbar region (principal); M48.061 Spinal stenosis, lumbar region without neurogenic claudication; I11.0 Hypertensive heart disease with heart failure; I50.9 Heart failure, unspecified; E78.00 Pure hypercholesterolemia, unspecified; J43.9 Emphysema, unspecified; K21.9 Gastro-esophageal reflux disease without esophagitis; M19.90 Unspecified osteoarthritis, unspecified site; E03.9 Hypothyroidism, unspecified; F41.9 Anxiety disorder, unspecified; F32.9 Major depressive disorder, single episode, unspecified; Z90.49 Acquired absence of other specified parts of digestive tract; Z90.710 Acquired absence of both cervix and uterus; Z98.890 Other specified postprocedural states; Z79.899 Other long term (current) drug therapy; Z87.891 Personal history of nicotine dependence; Z88.1 Allergy status to other antibiotic agents; Z88.8 Allergy status to other drugs, medicaments and biological substances
CPT/HCPCS: 72158; A9575

== ENCOUNTER → 2021-06-19 | Outpatient (CLI) | payer OTHER ==
[~2021-06-19] MED LIST changes: +DEXAMETHASONE PRES.FREE 10 MG/ML VIAL. ONE; -GADOTERATE 7.5 MMOL/15ML VIAL. IVP ONE; +IOHEXOL 180 MG/ML 10 ML VIAL. ONE; -OMEP20TA8 PO; +OMEP20TA91 PO; -VENL150C PO; +VENL150C3 PO
--- NOTE | 2021-06-19 11:07 | PDOC4 ---
Procedure Note: ICD 10 Code: ICD 10 Code: M54.16 M51.36 M4 8.06 M 96.1 Procedure Note: Patient is consented for lumbar epidural steroid injection with fluoroscopic guidance. Risks were discussed including but not limited to: Bleeding, infection, possibility of epidural hematoma and subsequent neurological compromise, dural puncture, headaches, spinal cord and/or nerve damage, side effects of steroid medication, and poor results regarding pain control. Patient understands and wished to proceed. Procedure is lumbar epidural steroid injection under local anesthetic using sterile prep and drape at the L5-S1 level using C-arm fluoroscopic guidance in both AP and lateral views medications injected is 20 mg dexamethasone +10mL preservative-free normal saline and 2 mL contrast- condition at discharge is stable patient tolerated procedure well had no complications. HONORIO GARNER MD Jun 19, 2021 11:07
--- NOTE | 2021-06-19 11:07 | PDOC ---
Progress Note - Pain Clinic Date of Service: DOS: DATE: 06/19/21 TIME: 11:03 Diagnosis: Dx: Lumbar radiculopathy with lumbar degenerative disease lumbar spinal stenosis with lumbar postlaminectomy syndrome History or Present Illness: HPI: 65-year-old female returns status post spinal cord stimulator placement with implanted March 2020 patient did very well is had some increased pain however in the low back and into the bilateral lower extremities right leg mostly the posterior gluteus posterior lateral thigh lateral anterior thighs anterior medial thighs medial lower leg as well as in the calves and feet patient had a spinal cord stimulator reprogrammed with some improvement but still significant pain radiating down the lower extremities we did do a MRI scan which we discu ssed with her earlier showing multilevel degenerative change with moderate left foraminal and central stenosis L2-3 and moderate central canal stenosis L3-4 with mild to moderate central canal stenosis moderate right and mild left facet arthropathy at L5-S1. Patient reports still significant pain worse with walking standing change positions rates it as a 9 on scale 10 is worst over the past week 9 on average 8 its least and is an 8 today patient reports no loss of motor function but significant fatigability described the pain is aching sharp tight shooting in the back radiating and cramping and stabbing in the back as well as constant severe and shooting in the lower extremities right essentially equal to left. Patient reports no increased loss of bowel or bladder incontinence. Patient does continue to report fatigability in the upper extremities with even walking or standing for more than about 5 to 10 minutes. Physical Exam: VS: Blood pressure is 1.6/72 pulse 81 respirations 18 temperature is 98.6 F height is 5 feet 8 inches weight is 211 pounds. PE: PHYSICAL EXAMINATION: GENERAL: The patient is awake, alert, oriented, appropriate, very pleasant in demeanor HEENT: Shows normocephalic, atraumatic. Extraocular movements are intact and symmetrical. Oral cavity: Mucous membranes moist and pink. Dentition is intact. NECK: Shows anterior throat supple without palpable lymphadenopathy noted. Swallow reflex symmetrical. CHEST: Shows normal on inspection. Breath sounds are clear bilaterally, no rales rhonchi or wheezes auscultated. HEART: Shows S1, S2 clear. No murmurs auscultated. ABDOMEN: Soft, nontender, nondistended. No palpable organomegaly is noted. BACK: Shows spine grossly in the midline. Normal-appearing cervical lordotic curvature. There is slightly increased thoracic kyphosis, some flattening of the lumbar lordotic curvature, with well-healed surgical scarring noted and easily palpable spinal cord stimulator generator in the left paraspinous distribution. Lumbar paraspinous muscles show symmetrical on inspection, on palpation shows some moderate tenderness diffusely throughout the upper, middle and lower distribution of the the paraspinous musculature without specific trigger points, without radiation of pain. The patient has good rotational motion of the lumbar spine, both laterally as well as extension and flexion without significant difficulty. No tenderness over the spinous processes, sacrum or sacroiliac regions. EXTREMITIES: Lower extremities show deep tendon reflexes 1+ in the patellar and tendo calcaneus tendons. Motor exam is 4 on a scale of 5 with right dorsiflexion, extension, quadriceps and hamstring flexion and 4/5 on the left. Peripheral pulses are 1+ posterior tibial. No peripheral edema is noted bilaterally. Lower extremities are warm and dry. SKIN: Shows warm and dry, good turgor. No edema. No sores, rashes or bruising throughout. Procedure: Procedure: Options discussed with the patient. Patient's old chart was reviewed as her current medication regimen updated current review of systems updated today as well. We will proceed with a lumbar epidural steroid injection today with fluoroscopic guidance. Risks were discussed including but not limited to: Bleeding, infection, possibility of epidural hematoma and subsequent neurological compromise, dural puncture, headaches, spinal cord and/or nerve damage, side effects of steroid medication, and poor results regarding pain control. Patient understands and wished to proceed. Patient return to the clinic in approximately 2 weeks for follow-up, was counseled as to return appointment, activity level, and side effects to be aware of. Medication Injected: Med Injected: Procedure is lumbar epidural steroid injection under local anesthetic using sterile prep and drape at the L5-S1 level using C-arm fluoroscopic guidance in both AP and lateral views medications injected is 20 mg dexamethasone +10mL preservative-free normal saline and 2 mL contrast- condition at discharge is stable patient tolerated procedure well had no complications. Condition at Discharge: Condition at Discharge: Condition at discharge stable, paced tolerated procedure well and had no complications. HONORIO AGRNER MD Jun 19, 2021 11:07
== END ==
LOC: PNCL 09:53
PROVIDERS: ATTEND Anesthesiology
DX: M51.16 Intervertebral disc disorders with radiculopathy, lumbar region (principal); M48.061 Spinal stenosis, lumbar region without neurogenic claudication; M96.1 Postlaminectomy syndrome, not elsewhere classified; E78.00 Pure hypercholesterolemia, unspecified; J43.9 Emphysema, unspecified; K21.9 Gastro-esophageal reflux disease without esophagitis; E03.9 Hypothyroidism, unspecified; F41.9 Anxiety disorder, unspecified; F32.9 Major depressive disorder, single episode, unspecified; I13.0 Hypertensive heart and chronic kidney disease with heart failure and stage 1 through stage 4 chronic kidney disease, or unspecified chronic kidney disease; I50.9 Heart failure, unspecified; N18.2 Chronic kidney disease, stage 2 (mild); M19.90 Unspecified osteoarthritis, unspecified site; Z86.73 Personal history of transient ischemic attack (TIA), and cerebral infarction without residual deficits; Z79.82 Long term (current) use of aspirin; Z79.899 Other long term (current) drug therapy; Z87.891 Personal history of nicotine dependence; Z98.890 Other specified postprocedural states; Z88.8 Allergy status to other drugs, medicaments and biological substances
CPT/HCPCS: 62323; J1100; Q9965

== ENCOUNTER → 2021-07-13 | Outpatient (CLI) | payer OTHER ==
[~2021-07-13] MED LIST changes: +DEXAMETHASONE SOD PHOS 20 MG/5 ML VIAL. ONE
--- NOTE | 2021-07-13 11:47 | PDOC ---
Progress Note - Pain Clinic Date of Service: DOS: DATE: 07/13/21 TIME: 11:43 Diagnosis: Dx: Lumbar radiculopathy with lumbar degenerative disc disease lumbar spinal stenosis and lumbar postlaminectomy syndrome History or Present Illness: HPI: 65-year-old female returns for follow-up status post lumbar epidural steroid injection x1. Patient reports she was doing very well Ling percent improvement until about a week and a half ago when she fell and landed on her right hip patient reports some significant pain in the hip radiating to the lateral aspect started at the back. Patient cannot have any x-rays of her hip and reports is getting better with time but is still significantly painful after the fall about a week and a half ago patient reports the pain in the low back is still radiating down to the lower extremities posterior gluteus posterior thighs posterior calves bilaterally worse at 8-9 on scale 10 is worst 7 at its least and 8 on average and is an 8 today patient scribes aching and sharp dull tight shooting tingling cramping can be stabbing as well in the right hip is a dull aching pain which is severe at times with weightbearing patient reports initially though she was able to stand at her sink and do dishes for much greater. Time then prior to her last visit and she is very pleased with her results overall. We discussed her right hip pain and if it gets worse we will order x-rays for the hip however it is been a week and a half and it seems to be getting better with time we did show her some stretches to do with the hip and some massage techniques for the musculature as well. Patient will try these and follow-up as necessary regarding the right hip pain. Physical Exam: VS: Blood pressure is 150/95 pulse 90 respirations 18 temperature 98.5 F height is 5 foot 8 inches weight is 216 pounds. PE: PHYSICAL EXAMINATION: GENERAL: The patient is awake, alert, oriented, appropriate, very pleasant in demeanor HEENT: Shows normocephalic, atraumatic. Extraocular movements are intact and symmetrical. Oral cavity: Mucous membranes moist and pink. Dentition is intact. NECK: Shows anterior throat supple without palpable lymphadenopathy noted. Swallow reflex symmetrical. CHEST: Shows normal on inspection. Breath sounds are clear bilaterally, no rales rhonchi or wheezes auscultated. HEART: Shows S1, S2 clear. No murmurs auscultated. ABDOMEN: Soft, nontender, nondistended. No palpable organomegaly is noted. BACK: Shows spine grossly in the midline. Normal-appearing cervical lordotic curvature. There is slightly increased thoracic kyphosis, some flattening of the lumbar lordotic curvature with well-healed surgical scarring noted and easily palpable spinal cord stimulator generator. Lumbar paraspinous muscles show symmetrical on inspection, on palpation shows some moderate tenderness diffusely throughout the upper, middle and lower distribution of the paraspinous muscles, but without specific trigger points, without radiation of pain. The patient has good rotational motion of the lumbar spine, both laterally as well as extension and flexion without significant difficulty. EXTREMITIES: Lower extremities show deep tendon reflexes 1+ in the patellar and tendo calcaneus tendons. Motor exam is 4 on a scale of 5 with right dorsi flexion, extension, quadriceps and hamstring flexion and 4/5 on the left. Peripheral pulses are 1+ posterior tibial. No peripheral edema is noted bilaterally. Lower extremities are warm and dry to touch, equal in color and appearance. SKIN: Shows warm and dry, good turgor. No edema. No sores, rashes or bruising throughout. Procedure: Procedure: Options were discussed with patient. Patient's old chart was reviewed as her current medication regimen updated current review of systems updated today as well. We will proceed with a lumbar epidural steroid injection today with fluoroscopic guidance. Risks were discussed including but not limited to: Bleeding, infection, possibility of epidural hematoma and subsequent neurolo gical compromise, dural puncture, headaches, spinal cord and/or nerve damage, side effects of steroid medication, and poor results regarding pain control. Patient understands and wished to proceed. Patient will return to clinic in approximate 2 weeks for follow-up, was counseled as to return appointment, activity level, and side effects to be aware of. Medication Injected: Med Injected: Procedure is lumbar epidural steroid injection under local anesthetic using sterile prep and drape at the L5-S1 level using C-arm fluoroscopic guidance in both AP and lateral views medications injected is 20 mg dexamethasone +10mL preservative-free normal saline and 2 mL contrast- condition at discharge is stable patient tolerated procedure well had no complications. Condition at Discharge: Condition at Discharge: Condition at discharge is stable, paced tolerated the procedure well and had no complications. HONORIO GARNER MD Jul 13, 2021 11:47
--- NOTE | 2021-07-13 11:47 | PDOC4 ---
Procedure Note: ICD 10 Code: ICD 10 Code: M54.16 M51.36 M48.06 M96.1 Procedure Note: Patient was consented for lumbar epidural steroid injection with fluoroscopic guidance. Risks were discussed including but not limited to: Bleeding, infection, possibility of epidural hematoma and subsequent neurological compromise, dural puncture, headaches, spinal cord and/or nerve damage, side effects of steroid medication, and poor results regarding pain control. Patient understands and wished to proceed. Procedure is lumbar epidural steroid injection under local anesthetic using sterile prep and drape at the L5-S1 level using C-arm fluoroscopic guidance in both AP and lateral views medications injected is 20 mg dexamethasone +10mL preservative-free normal saline and 2 mL contrast- condition at discharge is stable patient tolerated procedure well had no complications. HONORIO GARNER MD Jul 13, 2021 11:47
== END | disposition home or self-care (01) ==
LOC: PNCL 10:24
PROVIDERS: ATTEND Anesthesiology
DX: M51.16 Intervertebral disc disorders with radiculopathy, lumbar region (principal); M48.061 Spinal stenosis, lumbar region without neurogenic claudication; M96.1 Postlaminectomy syndrome, not elsewhere classified; I25.10 Atherosclerotic heart disease of native coronary artery without angina pectoris; J43.9 Emphysema, unspecified; K21.9 Gastro-esophageal reflux disease without esophagitis; I13.0 Hypertensive heart and chronic kidney disease with heart failure and stage 1 through stage 4 chronic kidney disease, or unspecified chronic kidney disease; I50.9 Heart failure, unspecified; N18.2 Chronic kidney disease, stage 2 (mild); E03.9 Hypothyroidism, unspecified; F41.9 Anxiety disorder, unspecified; F32.9 Major depressive disorder, single episode, unspecified; M19.90 Unspecified osteoarthritis, unspecified site; Z87.891 Personal history of nicotine dependence; Z90.49 Acquired absence of other specified parts of digestive tract; Z98.890 Other specified postprocedural states; Z79.82 Long term (current) use of aspirin; Z79.899 Other long term (current) drug therapy
CPT/HCPCS: 62323; J1100; Q9965

== ENCOUNTER → 2021-07-26 | Outpatient (CLI) | payer OTHER ==
[~2021-07-26] MED LIST changes: +BUPIVACAINE MPF 0.25% 10 ML VIAL. ONE; -DEXAMETHASONE SOD PHOS 20 MG/5 ML VIAL. ONE; -IOHEXOL 180 MG/ML 10 ML VIAL. ONE
--- NOTE | 2021-07-26 09:03 | PDOC ---
Progress Note - Pain Clinic Date of Service: DOS: DATE: 07/26/21 TIME: 08:58 Diagnosis: Dx: Myofascial pain Lumbar radiculopathy with lumbar degenerative disc disease and lumbar spinal stenosis with lumbar postlaminectomy syndrome History or Present Illness: HPI: 65-year-old female returns for follow-up status post lumbar epidural steroid injection July 13, 2021. Patient did very well reports Hund percent improvement after the first 2 weeks of the pain returning now but still about a 50 to 60% improvement overall pain returning in the lower extremities in the bilateral posterior gluteus posterior thighs and calves right equal to left patient's chief complaint today however is low back pain and mid back pain patient reports he has significant pain and spasms in the mid back low back and into the bilateral posterior hips and gluteus over the past week or so patient reports at that pain is not radiating to her lower extremities but is much more tight and spastic in the back she has been trying [id number] analgesia such as Tylenol Profen as well as heat and ice applications and alprazolam which has not been decreasing the pain significantly. Patient is doing some stretching at home with the heat application but no significant reduction in pain. Patient reports essentially equal right and left is slightly more on the right in the lower distribution of the low back which seems more spastic and kayode y tender even to the touch patient reports is worse with getting up from seated position is awakened from sleep about every 4-5 hours worse with rotation of motion worse with standing and walking and sitting for more than about 30 minutes. Patient reports no new bowel or bladder incontinence. Patient reports her stimulator is working well she is keeping it charged without difficulty. Physical Exam: VS: Blood pressure is 124/78 pulse 99 respirations 18 temperature 98.3 F weight is 220 pounds. PE: PHYSICAL EXAMINATION: GENERAL: The patient is awake, alert, oriented, appropriate, very pleasant in demeanor HEENT: Shows normocephalic, atraumatic. Extraocular movements are intact and symmetrical. Oral cavity: Mucous membranes moist and pink. Dentition is intact. NECK: Shows anterior throat supple without palpable lymphadenopathy noted. Swallow reflex symmetrical. CHEST: Shows normal on inspection. Breath sounds are clear bilaterally. HEART: Shows S1, S2 clear. No murmurs auscultated. ABDOMEN: Soft, nontender, nondistended. No palpable organomegaly is noted. BACK: Shows spine grossly in the midline. Normal-appearing cervical lordotic curvature. There is slightly increased thoracic kyphosis, some minor flattening of the lumbar lordotic curvature. Lumbar paraspinous muscles show symmetrical on inspection, on palpation shows some moderate tenderness diffusely throughout the upper, middle and lower distribution of the paraspinous muscles, with significant tenderness in the bilateral inferior thoracic paraspinous musculature very firm ropelike musculature bilaterally consistent with trigger point areas of musculature very tender with palpation but without radiation throughout the upper middle lower distribution of the paraspinous musculature in the lumbar distribution very firm ropelike musculature slightly more tender on the right than the left but very firm and tender consistent with trigger point areas of musculature again without radiation bilaterally also the superior gluteus more on the right than the left once again but present bilaterally very firm ropelike musculature very tender to touch bilaterally without radiation. Patient has well has surgical scars noted in the lumbar spine as well as easily palpable spinal cord stimulator generator just left of midline.. The patient has good rotational motion of the lumbar spine, both laterally as well as extension and flexion without significant difficulty. No tenderness over the spinous processes, sacrum or sacroiliac regions. EXTREMITIES: Lower extremities show deep tendon reflexes 1+ in the patellar and tendo calcaneus tendons. Motor exam is 4 on a scale of 5 with right dorsiflexion, extension, quadriceps and hamstring flexion and 4/5 on the left. Peripheral pulses are 1+ posterior tibial. No peripheral edema is noted bilaterally. Lower extremities are warm and dry. SKIN: Shows warm and dry, good turgor. No edema. No sores, rashes or bruising throughout. Procedure: Procedure: Options were discussed with the patient. Patient's old chart was reviewed as her current medication regimen updated current review of systems updated today as well. We will proceed with trigger point injections of the bilateral thoracic paraspinous muscular bilateral lumbar paraspinous muscles and bilateral gluteus musculature. Risk were discussed including but not limited to bleeding infection possibility of intravascular injection sequelae spread local anesthetic numbness side effects steroid medication portals regarding pain control. Patient understands wished to proceed. Patient return to clinic in approximate 2 weeks for follow-up, was counseled as to return appointment, activity level, and side effects to be aware of. Medication Injected: Med Injected: Patient sitting position under sterile prep and drape, trigger point identified the bilateral thoracic paraspinous posterior, bilateral lumbar paraspinous posterior, bilateral gluteus musculature. Using 25-gauge needle after negative aspiration each injection site total of 10 cc 0.25% ropivacaine and total of 10 mg dexamethasone was injected without difficulty. Patient tolerated procedure well and had no complications. Condition at Discharge: Condition at Discharge: Condition at discharge stable, paced tolerated procedure well and had no complications. HONORIO GARNER MD July 26, 2021 09:03
--- NOTE | 2021-07-26 09:04 | PDOC4 ---
Procedure Note: ICD 10 Code: ICD 10 Code: M60.89 Procedure Note: Patient was consented for trigger point injections bilateral thoracic paraspinous posterior, bilateral lumbar paraspinous muscular, bilateral gluteus musculature. Risk discussed including but not limited to bleeding infection possibility of intravascular injection sequelae spread local anesthetic numbness side effects steroid medication portals regarding pain control. Patient understands wished to proceed. Patient sitting position under sterile prep and drape, trigger point identified the bilateral thoracic paraspinous posterior, bilateral lumbar paraspinous posterior, bilateral gluteus musculature. Using 25-gauge needle after negative aspiration each injection site total of 10 cc 0.25% ropivacaine and total of 10 mg dexamethasone was injected without difficulty. Patient tolerated procedure well and had no complications. HONORIO GARNER MD July 26, 2021 09:04
--- NOTE | 2021-07-26 09:07 | FMN ---
PT PROBLEMS Addendum for Savannah Ann visit of July 26, 2021 Patient continues to complain of increasing low back pain bilateral lower extremity pain and radicular fashion following L5-S1 dermatomal distribution in the posterior gluteus posterior thighs posterior calves although significantly improved after last lumbar epidural steroid injection near Hund percent for 2 weeks pain still about 50% increasing despite stretching strength exercises as well as heat applications oral analgesics which she was decreasing significantly during the first 2 weeks as well as sleeping better increase activity with greater ease and comfort now is all returning right side essentially equal to left with radicular pain in an L5-S1 dermatomal distribution. We discussed options with the patient we will preauthorize patient for a additional lumbar epidural steroid injection she did very well with the last one in the meantime she will maintain stretching strength exercises at home heat and ice application s as well as oral analgesics as currently. Once approved, patient will return for translaminar approach L5-S1 lumbar epidural steroid injection with fluoroscopic HONORIO GARNER MD July 26, 2021 09:07
== END | disposition home or self-care (01) ==
LOC: PNCL 08:13
PROVIDERS: ATTEND Anesthesiology
DX: M79.18 Myalgia, other site (principal); M51.16 Intervertebral disc disorders with radiculopathy, lumbar region; M48.061 Spinal stenosis, lumbar region without neurogenic claudication; M96.1 Postlaminectomy syndrome, not elsewhere classified; I13.0 Hypertensive heart and chronic kidney disease with heart failure and stage 1 through stage 4 chronic kidney disease, or unspecified chronic kidney disease; I50.9 Heart failure, unspecified; N18.2 Chronic kidney disease, stage 2 (mild); I25.10 Atherosclerotic heart disease of native coronary artery without angina pectoris; J43.9 Emphysema, unspecified; K21.9 Gastro-esophageal reflux disease without esophagitis; E03.9 Hypothyroidism, unspecified; M19.90 Unspecified osteoarthritis, unspecified site; F41.9 Anxiety disorder, unspecified; F32.9 Major depressive disorder, single episode, unspecified; Z90.710 Acquired absence of both cervix and uterus; Z90.49 Acquired absence of other specified parts of digestive tract; Z98.890 Other specified postprocedural states; Z79.899 Other long term (current) drug therapy; Z87.891 Personal history of nicotine dependence; Z79.82 Long term (current) use of aspirin; Z88.8 Allergy status to other drugs, medicaments and biological substances
CPT/HCPCS: 20553; J1100; J3490

== ENCOUNTER → 2021-08-09 | Outpatient (CLI) | payer OTHER ==
[~2021-08-09] MED LIST changes: -BUPIVACAINE MPF 0.25% 10 ML VIAL. ONE; +IOHEXOL 180 MG/ML 10 ML VIAL. ONE
--- NOTE | 2021-08-09 11:25 | PDOC ---
Progress Note - Pain Clinic Date of Service: DOS: DATE: 08/09/21 TIME: : Diagnosis: Dx: Lumbar radiculopathy with lumbar degenerative disease lumbar spinal stenosis lumbar postlaminectomy syndrome Myofascial pain History or Present Illness: HPI: 65-year-old female returns for follow-up status post lumbar epidural steroid injection with good results about percent improvement for the first few weeks but the pain returning now in the low back and the bilateral lower extremities patient reports increased pain in the back rating the posterior gluteus posterior thighs posterior calves bilaterally as well as anterior and lateral thighs and medial thighs inferiorly and into the calves as well. Patient reports a 9 on scale 10 is worse over the past week 8 on average 7 its least is an 8 today patient scribes aching sharp dull tight shooting tingling burning cramping stabbing radiating can be constant and severe in the lower extremities as well with standing or walking. Patient reports her spinal stimulator is still functioning well however decreasing about 50% of the pain and keeping it charged without difficulty patient reports no bowel or bladder incontinence, no new motor or sensory deficits but significant fatigability of the lower extremities with standing and ambulation. Physical Exam: VS: Blood pressure is 140/87 pulse 90 respirations 18 temperature 98.2 F height is 5 feet 8 inches weight is 220 pounds. PE: PHYSICAL EXAMINATION: GENERAL: The patient is awake, alert, oriented, appropriate, very pleasant in demeanor HEENT: Shows normocephalic, atraumatic. Extraocular movements are intact and s ymmetrical. Oral cavity: Mucous membranes moist and pink. Dentition is intact. NECK: Shows anterior throat supple without palpable lymphadenopathy noted. Swallow reflex symmetrical. CHEST: Shows normal on inspection. Breath sounds are clear bilaterally, no rales or rhonchi auscultated. HEART: Shows S1, S2 clear. No murmurs auscultated. ABDOMEN: Soft, nontender, nondistended. No palpable organomegaly is noted. BACK: Shows spine grossly in the midline. Normal-appearing cervical lordotic curvature. There is moderately increased thoracic kyphosis, some flattening of the lumbar lordotic curvature, with well-healed surgical scarring again noted. Lumbar paraspinous muscles show symmetrical on inspection, on palpation shows some moderate tenderness diffusely throughout the upper, middle and lower distribution of the paraspinous muscles, but without specific trigger points, without radiation of pain. The patient has good rotational motion of the lumbar spine, both laterally as well as extension and flexion without significant difficulty. EXTREMITIES: Lower extremities show deep tendon reflexes 1+ in the patellar and tendo calcaneus tendons. Motor exam is 4 on a scale of 5 with right dorsiflexion, extension, quadriceps and hamstring flexion and 4/5 on the left. Peripheral pulses are 1+ posterior tibial. No peripheral edema is noted bilaterally. Lower extremities are warm and dry to touch, equal in color and appearance. SKIN: Shows warm and dry, good turgor. No edema. No sores, rashes or bruising throughout. Procedure: Procedure: Options were discussed with the patient. Patient's old chart was reviewed as her current medication regimen updated current review of systems updated today as well. We will proceed with a lumbar epidural steroid injection today with fluoroscopic guidance. Risks were discussed including but not limited to: Bleeding, infection, possibility of epidural hematoma and subsequent neurological compromise, dural puncture, headaches, spinal cord and/or nerve damage, side effects of steroid medication, and poor results regarding pain control. Patient understands and wished to proceed. Patient return to clinic in approximately 2 weeks for follow-up, was counseled as to return appointment, activity level, and side effect to be aware of. Medication Injected: Med Injected: Procedure is lumbar epidural steroid injection under local anesthetic using sterile prep and drape at the L5-S1 level using C-arm fluoroscopic guidance in both AP and lateral views medications injected is 20 mg dexamethasone +10mL preservative-free normal saline and 2 mL contrast- condition at discharge is stable patient tolerated procedure well had no complications. Condition at Discharge: Condition at Discharge: Condition at discharge stable, patient tolerated the procedure well and had no complications. HONORIO GARNER MD August 09, 2021 11:25
--- NOTE | 2021-08-09 11:26 | PDOC4 ---
Procedure Note: ICD 10 Code: ICD 10 Code: M54.16 M51.36 M48.06 M96.1 Procedure Note: Patient was consented for lumbar epidural steroid injection with fluoroscopic guidance. Risks were discussed including but not limited to: Bleeding, infection, possibility of epidural hematoma and subsequent neurological compromise, dural puncture, headaches, spinal cord and/or nerve damage, side effects of steroid medication, and poor results regarding pain control. Patient understands and wished to proceed. Procedure is lumbar epidural steroid injection under local anesthetic using sterile prep and drape at the L5-S1 level using C-arm fluoroscopic guidance in both AP and lateral views medications injected is 20 mg dexamethasone +10mL preservative-free normal saline and 2 mL contrast- condition at discharge is stable patient tolerated procedure well had no complications. HONORIO GARNER MD August 09, 2021 11:26
== END | disposition home or self-care (01) ==
LOC: PNCL 10:07
PROVIDERS: ATTEND Anesthesiology
DX: M51.16 Intervertebral disc disorders with radiculopathy, lumbar region (principal); M48.061 Spinal stenosis, lumbar region without neurogenic claudication; M96.1 Postlaminectomy syndrome, not elsewhere classified; M79.18 Myalgia, other site; I11.0 Hypertensive heart disease with heart failure; I50.9 Heart failure, unspecified; I25.10 Atherosclerotic heart disease of native coronary artery without angina pectoris; J43.9 Emphysema, unspecified; E78.00 Pure hypercholesterolemia, unspecified; E03.9 Hypothyroidism, unspecified; M19.90 Unspecified osteoarthritis, unspecified site; F41.9 Anxiety disorder, unspecified; F32.9 Major depressive disorder, single episode, unspecified; Z79.899 Other long term (current) drug therapy; Z98.890 Other specified postprocedural states
CPT/HCPCS: 62323; J1100; Q9965